=== PATIENT | female | born 1980 | race Caucasian/White ===

== ENCOUNTER → 2016-11-05 | Outpatient (CLI) | payer BC ==
[~2016-11-05] MED LIST: ALBU17AE23 IH; ALPR1T PO; AMOX500C2 PO; AMPH10CA PO; AZIT-21 PO; CLIN-81 PO; CLON1TAB36 PO; DEXT10TA PO; HYDR-1231 PO; HYDR-3583 PO; HYDR1CAP2 PO; HYDR1TAB PO; HYOS0.1216 PO; IBUP-30 PO; LIRA0.6P SQ; LRT10T; MECL25TA56 PO; METAPROLOL; METF500T8 PO; METO25TA2 PO; MTF500T PO; NAPR550T PO; NORE1TAB8 PO; ONDA-43 PO; ONDAN4ODT PO; PRCD5U; PRD10T PO; PRM25T PO; QTP25T PO; SCOP1PAT TD; SITA1TAB2 PO; SPIR50TA27 PO; SULF1TAB23 PO; SULF1TAB38 PO; TIZA2CAP PO; TIZA4TAB55 PO; TRAM50TA2 PO; TRM50T PO; YAZ; YAZ PO; ZLP10T PO
--- NOTE | 2016-11-05 11:59 | Diagnostic Imaging Report ---
PROCEDURE: MR angiography of the brain without the use of contrast. TECHNIQUE: 3D [id number]-[id number] non contrast enhanced MR angiography of the head was performed. A source data was reformatted into rotating MIP projections. INDICATION: Migraine FINDINGS: There is suggestion of a saccular aneurysm measuring 3 x 2 mm arising from the superior aspect of the supraglenoid segment of the left ICA. This arises distal to the left ophthalmic artery origin and at about 1 CM proximal to the ICA bifurcation into the left MCA and left AGUSTINA. Both MCA and AGUSTINA arteries appear normal in caliber with no high-grade stenosis, occlusion or other aneurysm seen. The vertebral arteries and the basilar arteries are also patent. The vertebral arteries demonstrate slight dominance of the right side. The electrician yard are from both patent bilaterally. 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 Confirmation with CTA or a conventional angiogram is suggested. Report was faxed to office of Barrie Ribeiro by cynthia at 11:59 am. Dictated by: Dictated on workstation # [id number]
== END ==
LOC: RAD 10:20
PROVIDERS: ATTEND Nurse Practitioner Community Health
DX: G43.009 Migraine without aura, not intractable, without status migrainosus (principal); Z82.49 Family history of ischemic heart disease and other diseases of the circulatory system
CPT/HCPCS: 70544

== ENCOUNTER → 2017-10-12 | Outpatient (CLI) | payer BC | LOC: LAB 16:45 | PROVIDERS: ATTEND Obstetrics & Gynecology | DX: E28.2 Polycystic ovarian syndrome (principal) | CPT/HCPCS: 36415; 82670 ==

== ENCOUNTER 2018-06-27 05:53 | Emergency (ER) | payer BC ==
[~2018-06-27] VITALS: Ht 175.3 cm; Wt 122.5 kg
[2018-06-27] MEDS ORDERED: LORA-404 PO (06:28)
[2018-06-27] MEDS ORDERED: AMLO2.5T2 PO (06:28)
[2018-06-27] MEDS ORDERED: GLIP5TAB13 PO (06:28)
[2018-06-27] MEDS ORDERED: DEXT5TAB19 PO (06:28)
[2018-06-27 06:43] LABS: BASOPHILS % (AUTO) 0 % (0-10); EOSINOPHILS # (AUTO) 0.1 10^3/uL (0.0-0.3); EOSINOPHILS % (AUTO) 1 % (0-10); HEMATOCRIT 42 % (35-52); HEMOGLOBIN 14.1 G/DL (11.5-16.0); LYMPHOCYTES # (AUTO) 1.9 X 10^3 (1.0-4.0); LYMPHOCYTES % (AUTO) 15 % (12-44); MEAN CORPUSCULAR HEMOGLOBIN 31 PG (25-34); MEAN CORPUSCULAR HGB CONC 34 G/DL (32-36); MEAN CORPUSCULAR VOLUME 92 FL (80-99); MEAN PLATELET VOLUME 9.8 FL (7.4-10.4); MONOCYTES # (AUTO) 0.9 X 10^3 (0.0-1.0); MONOCYTES % (AUTO) 7 % (0-12); NEUTROPHILS # (AUTO) 9.6 X 10^3 (1.8-7.8); NEUTROPHILS % (AUTO) 77 % (42-75); PLATELET COUNT 295 10^3/uL (130-400); RED BLOOD COUNT 4.55 10^6/uL (4.35-5.85); RED CELL DISTRIBUTION WIDTH 14.2 % (10.0-14.5); WHITE BLOOD COUNT 12.5 10^3/uL (4.3-11.0)
[2018-06-27 06:47] LABS: BILIRUBIN,URINE NEGATIVE (NEGATIVE); COLOR,URINE YELLOW; GLUCOSE, URINE (UA) 3+ (NEGATIVE); KETONES,URINE NEGATIVE (NEGATIVE); LEUKOCYTE ESTERASE ,URINE 3+ (NEGATIVE); NITRITE,URINE NEGATIVE (NEGATIVE); PH,URINE 5 (5-9); PROTEIN,URINE 2+ (NEGATIVE); UROBILINOGEN,URINE NORMAL (NORMAL)
[2018-06-27 07:06] LABS: CLARITY,URINE VERY CLOUDY
[2018-06-27 07:07] LABS: BACTERIA,URINE TRACE /HPF
--- NOTE | 2018-06-27 07:07 | ED General ---
General Chief Complaint: -Female Stated Complaint: BLADDER PAIN;MIGRAINE Nursing Triage Note: HEADACHE, BURNING WITH URINATION X1 WEEK. Nursing Sepsis Screen: No Definite Risk Source of Information: Patient Exam Limitations: No Limitations History of Present Illness Date Seen by Provider: Jun 27, 2018 Time Seen by Provider: 07:04 Initial Comments The patient is a 37-year-old white female who presents this morning with complaints of extreme dysuria for about a week. She also states that she has had a headache for a week which turned into a migraine today. She states she is not concerned about the headache issue. She also states that she has increased her fluid intake. This has not improved her situation. She states that this morning the urine was rather dark in color. There is no past history of kidney stones. Timing/Duration: 1 Week Associated Systoms: Headaches Allergies and Home Medications Allergies Coded Allergies: latex (Unverified Allergy, Severe, HIVES, 02/02/15) bupropion (Unverified Allergy, Unknown, 05/23/14) venlafaxine (Unverified Allergy, Unknown, 05/23/14) Home Medications Amlodipine Besylate 2.5 Mg Tablet, Unknown Dose PO DAILY, (Reported) Hydrocodone Bit/Acetaminophen 1 Tab Tablet, 1 TAB PO Q6H PRN for PAIN, (Reported ) Lorazepam 0.5 Mg Tablet, Unknown Dose PO TID PRN for ANXIETY, (Reported) Patient Home Medication List Home Medication List Reviewed: Yes Review of Systems Review of Systems Constitutional: see HPI EENTM: no symptoms reported Respiratory: no symptoms reported Genitourinary: see HPI, dysuria, frequency, pain Musculoskeletal: no symptoms reported Skin: no symptoms reported Psychiatric/Neurological: No Symptoms Reported Hematologic/Lymphatic: No Symptoms Reported Immunological/Allergic: no symptoms reported Past Xoqbbca-Gzmvum-Wabhey Hx Patient Social History Alcohol Use: Denies Use Recreational Drug Use: No Smoking Status: Current Everyday Smoker Type Used: Cigarettes 2nd Hand Smoke Exposure: Yes Recent Foreign Travel: No Contact w/Someone Who Travel: No Recent Infectious Disease Expo: No Recent Hopitalizations: No Immunizations Up To Date Tetanus Booster (TDap): Unknown PED Vaccines UTD: Yes Date of Influenza Vaccine: Apr 12, 2013 Seasonal Allergies Seasonal Allergies: No Past Medical History Surgeries: Yes (L KNEE MENISCUS REPAIR.) Orthopedic Respiratory: Yes Sleep Apnea Cardiac: Yes High Cholesterol, Hypertension Neurological: Yes Headaches /Migraines : No Reproductive Disorders: Yes (PCOS, INFERTILITY) Female Reproductive Disorders: Menstrual Problems, Ovarian Cyst, Polycystic Ovarian Dis Sexually Transmitted Disease: No HIV/AIDS: No Genitourinary: Yes UTI-Chronic Gastrointestinal: No Musculoskeletal: Yes Chronic Back Pain, Spasms Endocrine: Yes Diabetes, Non-Insulin dep HEENT: No Loss of Vision: Bilateral Hearing Impairment: Denies Cancer: No Psychosocial: Yes Anxiety, Depression Integumentary: Yes (CELLULITIS, ABSCESSES) Blood Disorders: No Adverse Reaction/Blood Tranf: No Family Medical History Deep venous thrombosis Diabetes mellitus 19 MOTHER FH: brain aneurysm FH: depression 19 MOTHER FH: headache FH: sleep apnea Hypertension 19 FATHER No Pertinent Family Hx Physical Exam Vital Signs Vital Signs - First Documented 06/27/18 06:18 Temp 98.9 Pulse 99 Resp 16 B/P (MAP) 140/75 (96) Pulse Ox 96 O2 Delivery Room Air Capillary Refill : Less Than 3 Seconds Height, Weight, BMI Height: 5'9" Weight: 270lbs. 0.0oz. 122.061173zz; 42.53 BMI Method:Stated General Appearance: Mild Distress Eyes: Bilateral Eye Normal Inspection HEENT: Normal ENT Inspection Neck: Normal Inspection Respiratory: Chest Non Tender, Lungs Clear, Normal Breath Sounds, No Accessory Muscle Use, No Respiratory Distress Cardiovascular: Regular Rate, Rhythm, No Edema, No Gallop, No JVD, No Murmur, Normal Peripheral Pulses Gastrointestinal: Normal Bowel Sounds, No Organomegaly, No Pulsatile Mass, Non Tender, Soft Back: Normal Inspection Extremity: Normal Capillary Refill Skin: Normal Color, Warm/Dry Lymphatic: No Adenopathy Progress/Results/Core Measures Suspected Sepsis Recent Fever Within 48 Hours: No Infection Criteria Present: None New/Unexplained Altered Menta: No Sepsis Screen: No Definite Risk SIRS Temperature:98.9 Pulse: 99 Respiratory Rate: 16 Laboratory Tests 06/27/18 06:35: White Blood Count 12.5H Blood Pressure 140 /75 Mean: 96 Laboratory Tests 06/27/18 06:35: Platelet Count 295 Results/Orders Lab Results Laboratory Tests Test 06/27/18 06:35 06/27/18 06:40 Range/Units White Blood Count 12.5 H 4.3-11.0 10^3/uL Red Blood Count 4.55 4.35-5.85 10^6/uL Hemoglobin 14.1 11.5-16.0 G/DL Hematocrit 42 35-52 % Mean Corpuscular Volume 92 80-99 FL Mean Corpuscular Hemoglobin 31 25-34 PG Mean Corpuscular Hemoglobin Concent 34 32-36 G/DL Red Cell Distribution Width 14.2 10.0-14.5 % Platelet Count 295 130-400 10^3/uL Mean Platelet Volume 9.8 7.4-10.4 FL Neutrophils (%) (Auto) 77 H 42-75 % Lymphocytes (%) (Auto) 15 12-44 % Monocytes (%) (Auto) 7 0-12 % Eosinophils (%) (Auto) 1 0-10 % Basophils (%) (Auto) 0 0-10 % Neutrophils # (Auto) 9.6 H 1.8-7.8 X 10^3 Lymphocytes # (Auto) 1.9 1.0-4.0 X 10^3 Monocytes # (Auto) 0.9 0.0-1.0 X 10^3 Eosinophils # (Auto) 0.1 0.0-0.3 10^3/uL Basophils # (Auto) 0.0 0.0-0.1 10^3/uL Urine Color YELLOW Urine Clarity VERY CLOUDY H Urine pH 5 5-9 Urine Specific Cameron 1.025 H 1.016-1.022 Urine Protein 2+ H NEGATIVE Urine Glucose (UA) 3+ H NEGATIVE Urine Ketones NEGATIVE NEGATIVE Urine Nitrite NEGATIVE NEGATIVE Urine Bilirubin NEGATIVE NEGATIVE Urine Urobilinogen NORMAL NORMAL MG/DL Urine Leukocyte Esterase 3+ H NEGATIVE Urine RBC (Auto) 2+ H NEGATIVE Urine RBC 5-10 H /HPF Urine WBC 10-25 H /HPF Urine Squamous Epithelial Cells 5-10 /HPF Urine Crystals NONE /LPF Urine Bacteria TRACE /HPF Urine Casts NONE /LPF Urine Mucus NEGATIVE /LPF Urine Culture Indicated YES My Orders Orders - EDNA SANDS MD Cbc With Automated Diff (06/27/18 06:20) Ua Culture If Indicated (06/27/18 06:20) Urine Culture (06/27/18 06:40) Ceftriaxone For Im Use (Rocephin For Im (06/27/18 07:45) Lidocaine 1% Inj 20 Ml (Xylocaine 1% Inj (06/27/18 07:36) Ceftriaxone For Iv Use (Rocephin For I (06/27/18 07:36) Ibuprofen Tablet (Motrin Tablet) (06/27/18 08:00) Medications Given in ED Current Medications Medications Dose Ordered Sig/Glory Route Start Time Stop Time Status Last Admin Dose Admin Lidocaine HCl 20 ml STK-MED ONCE .ROUTE 06/27/18 07:36 06/27/18 07:39 DC 06/27/18 07:44 20 ML Vital Signs/I&O 06/27/18 06:18 Temp 98.9 Pulse 99 Resp 16 B/P (MAP) 140/75 (96) Pulse Ox 96 O2 Delivery Room Air Capillary Refill : Less Than 3 Seconds Blood Pressure Mean: 96 Departure Communication (Admissions) UA shows pyuria and is consistent with urinary tract infection Impression Primary Impression: Urinary tract infection Disposition: HOME, SELF-CARE Condition: Stable/Unchanged Departure-Patient Inst. Decision time for Depature: 08:08 Referrals: SATURNINO FRANCO DO (PCP) Primary Care Physician ARABELLA DIXON (Family) Primary Care Physician Add. Discharge Instructions: All discharge instructions reviewed with patient and/or family. Voiced understanding. Plenty of liquids. Begin Omnicef by mouth at 0800 tomorrow. Scripts Cefdinir (Cefdinir) 300 Mg Capsule 300 MG PO twice a day, #12 CAP Prov: EDNA SANDS MD 06/27/18 EDNA SANDS MD Jun 27, 2018 07:07
[2018-06-27] MEDS ORDERED: NS IV 1000 ML 1,000 ML IV SCH (07:15)
[2018-06-27] MEDS ORDERED: ONDANSETRON 4 MG/2 ML (SDV) Z0FRAN IVP ONE (07:15)
[2018-06-27] MEDS ORDERED: KETOROLAC 30 MG/ML VIAL IVP ONE (07:15)
--- OUTSIDE RECORDS SUMMARY | 2018-06-27 07:19 | XMS REPORT ---
Author Author ARABELLA DIXON Organization [facility] Address [address] [place] [address] Care Team Providers Care Print Line Feeder Name Role Phone ARABELLA DIXON Unavailable PROBLEMS Type Condition ICD9-CM Code EXZ39-VL Code Onset Dates Condition Status SNOMED Code Problem Lumbago with sciatica, right side M54.41 Active [id number] Problem Diabetes type 2, controlled E11.9 Active 59604786 Problem Other chronic pain G89.29 Active 53999731 Problem High risk medications (not anticoagulants) long-term use Z79.899 Active 226629336 Problem Obstructive sleep apnea syndrome G47.33 Active 15409393 Problem Lumbago with sciatica, left side M54.42 Active 458184427 Problem Bilateral low back pain with sciatica, sciatica laterality unspecified M54.40 Active 91150714 Problem Essential hypertension I10 Active 61667383 Problem Migraine without aura and without status migrainosus, not intractable G43.009 Active 974173440 Problem Morbid obesity due to excess calories E66.01 Active 756884487 Problem Mood disorder F39 Active 87267903 Problem Anxiety F41.9 Active 69384570 ALLERGIES No Information ENCOUNTERS Encounter Location Date Diagnosis [facility] [id number] [place] [address] 70819- 6306 Jun, Acute pain of left shoulder M25.512 [facility] [id number] [place] [address] 71326 -8184 Jun, Stye, right H00.013 [facility] [id number] [place] [address] 95544- 2493 May, [facility] [id number] [place] [address] 99706- 6861 May, Bilateral low back pain with sciatica, sciatica laterality unspecified M54.40 ; Morbid obesity due to excess calories E66.01 and Diabetes type 2, controlled E11.9 [facility] [id number] [place] [address] 92968- 4103 Apr, Morbid obesity due to excess calories E66.01 [facility] [id number] [place] [address] 07493- 0087 18 Apr, 2018 Diabetes type 2, controlled E11.9 and Bilateral low back pain with sciatica, sciatica laterality unspecified M54.40 [facility] [id number] [place] [address] 85680- 7043 26 Mar, 2018 Acute pain of left shoulder M25.512 and BMI 40.0-44.9, adult Z68.41 [facility] [id number] [place] [address] 09333- 5116 Mar, Morbid obesity due to excess calories E66.01 [facility] [id number] [place] [address] 84277- 3375 Mar, Diabetes type 2, controlled E11.9 and Bilateral low back pain with sciatica, sciatica laterality unspecified M54.40 [facility] [id number] [place] [address] 72008- 4864 Feb, Anxiety F41.9 [facility] [id number] [place] [address] 24813- 5460 Feb, Morbid obesity due to excess calories E66.01 [facility] [id number] [place] [address] 41235- 9620 Feb, Bilateral low back pain with sciatica, sciatica laterality unspecified M54.40 and Diabetes type 2, controlled E11.9 [facility] [id number] [place] [address] 71339- 6290 Jan, Morbid obesity due to excess calories E66.01 [facility] [id number] [place] [address] 29933- 5164 Jan, [facility] [id number] [place] [address] 30361- 4406 Jan, Diabetes type 2, controlled E11.9 [facility] [id number] [place] [address] 38415- 7398 Jan, Diabetes type 2, controlled E11.9 [facility] [id number] [place] [address] 55928- 0144 Jan, Bilateral low back pain with sciatica, sciatica laterality unspecified M54.40 and Dysfunction of both eustachian tubes H69.83 [facility] [id number] [place] [address] 98012- 2125 Jan, Morbid obesity due to excess calories E66.01 [facility] [id number] [place] [address] 36787- 9051 Dec, Diabetes type 2, controlled E11.9 [facility] [id number] [place] [address] 04219- 3292 Dec, Morbid obesity due to excess calories E66.01 ; Essential hypertension I10 ; Tobacco abuse Z72.0 and Tobacco abuse counseling Z71.6 [facility] [id number] [place] [address] 89242- 1715 November, Diabetes type 2, controlled E11.9 [facility] [id number] [place] [address] 86092- 7434 Oct, Diabetes type 2, controlled E11.9 [facility] [id number] [place] [address] 38096- 3277 Sep, Diabetes type 2, controlled E11.9 [facility] [id number] [place] [address] 49804- 7344 Sep, [facility] [id number] [place] [address] 73285- 5315 Aug, Diabetes type 2, controlled E11.9 and Morbid obesity due to excess calories E66.01 [facility] [id number] [place] [address] 83543- 8939 Jul, Anxiety F41.9 [facility] [id number] [address]- 7672 Jul, [facility] [id number] [place] [address] 59974- 5925 Jul, Anxiety F41.9 ; Mood disorder F39 ; Morbid obesity due to excess calories E66.01 and Diabetes type 2, controlled E11.9 [facility] [id number] [place] [address] 07643- 7976 Jun, Anxiety F41.9 [facility] [id number] [place] [address] 84584- 7017 Jun, Anxiety F41.9 ; Morbid obesity due to excess calories E66.01 and Diabetes type 2, controlled E11.9 [facility] [id number] [place] [address] 72522- 8047 May, Migraine without aura and without status migrainosus, not intractable G43.009 ; Diabetes type 2, controlled E11.9 and Morbid obesity due to excess calories E66.01 [facility] [id number] [place] [address] 72642- 0080 Apr, Migraine without aura and without status migrainosus, not intractable G43.009 ; Diabetes type 2, controlled E11.9 and Morbid obesity due to excess calories E66.01 [facility] [id number] [place] [address] 91545- 0892 Apr, Diabetes type 2, controlled E11.9 and Morbid obesity due to excess calories E66.01 [facility] [id number] [place] [address] 67485- 5155 Mar, Diabetes type 2, controlled E11.9 and Morbid obesity due to excess calories E66.01 [facility] [id number] [place] [address] 43900- 8675 Mar, Diabetes type 2, controlled E11.9 and Mood disorder F39 [facility] [id number] [place] [address] 77796- 7884 Feb, Morbid obesity due to excess calories E66.01 and Diabetes type 2, controlled E11.9 [facility] [id number] [place] [address] 36449- 0030 Jan, Diabetes type 2, controlled E11.9 and Morbid obesity due to excess calories E66.01 [facility] [id number] [place] [address] 34837- 6403 Dec, Diabetes type 2, controlled E11.9 and Morbid obesity due to excess calories E66.01 [facility] [id number] [place] [address] 98890- 4234 Dec, Morbid obesity due to excess calories E66.01 [facility] [id number] [place] [address] 62707- 2706 November, Diabetes type 2, controlled E11.9 and Morbid obesity due to excess calories E66.01 [facility] [id number] [place] [address] 47222- 8847 November, Anxiety F41.9 and Injury of right foot, initial encounter S99.921A [facility] [id number] [place] [address] 18141- 5674 November, Diabetes type 2, controlled E11.9 and Morbid obesity due to excess calories E66.01 [facility] [id number] [place] [address] 41947- 0396 November, [facility] [id number] [place] [address] 97848- 2569 Oct, Family history of brain aneurysm Z82.49 and Migraine without aura and without status migrainosus, not intractable G43.009 [facility] [id number] [place] [address] 28846- 2891 Oct, Diabetes type 2, controlled E11.9 [facility] [id number] [place] [address] 91556- 8407 Oct, Morbid obesity due to excess calories E66.01 ; Family history of brain aneurysm Z82.49 and Migraine without aura and without status migrainosus, not intractable G43.009 [facility] [id number] [place] [address] 99943- 5891 Oct, Diabetes type 2, controlled E11.9 and Morbid obesity due to excess calories E66.01 [facility] [id number] [place] [address] 47978- 3807 Sep, [facility] [id number] [place] [address] 81695- 5057 Sep, Diabetes type 2, controlled E11.9 [facility] [id number] [place] [address] 37984- 2458 Sep, Morbid obesity due to excess calories E66.01 [facility] [id number] [place] [address] 38568- 3146 Aug, Exposure to hepatitis C Z20.5 [facility] [id number] [place] [address] 11706- 0165 Aug, Diabetes type 2, controlled E11.9 [facility] [id number] [place] [address] 08986- 5545 Jul, Exposure to hepatitis C Z20.5 [facility] [id number] [place] [address] 98838- 5402 Jul, Exposure to hepatitis C Z20.5 [facility] [id number] [place] [address] 38208- 7919 Jul, [facility] [id number] [place] [address] 84844- 7946 Jul, Diabetes type 2, controlled E11.9 [facility] [id number] [place] [address] 32622- 7506 Jun, [facility] [id number] [place] [address] 95648- 5124 Jun, Diabetes type 2, controlled E11.9 ; Pain of left foot M79.672 and Pain in right foot M79.671 [facility] [id number] [place] [address] 56740- 7743 May, [facility] [id number] [place] [address] 94970- 8703 Apr, [facility] [id number] [place] [address] 85422- 0792 Apr, [facility] [id number] [place] [address] 29848- 9199 Mar, [facility] [id number] [place] [address] 90489- 3199 Feb, [facility] [id number] [place] [address] 26598- 5897 Feb, [facility] [id number] [place] [address] 46956- 7113 Jan, [facility] [id number] [place] [address] 53004- 2274 Dec, Diabetes type 2, controlled E11.9 ; 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 and Abscess, abdomen K65.1 [facility] [id number] [place] [address] 84034- 1604 Dec, Shoulder pain, right 719.41 [facility] [id number] [place] [address] 98646- 3707 November, [facility] [id number] [place] [address] 29367- 8919 November, [facility] [id number] [place] [address] 93770- 0165 Oct, [facility] [id number] [address]- 8203 Sep, [facility] [id number] [place] [address] 36212- 8598 Sep, [facility] [id number] [address] -2633 Aug, [facility] [id number] [place] [address] 26391- 9091 Aug, [facility] [id number] [place] [address] 07131- 3446 Aug, Cellulitis, unspecified L03.90 ; Cutaneous abscess, unspecified L02.91 ; Diabetes type 2, controlled E11.9 ; Migraine G43.909 and Bilateral low back pain with sciatica, sciatica laterality unspecified M54.40 [facility] [id number] [place] [address] 40471 -0658 13 Aug, 2015 Abscess and cellulitis L03.90 [facility] [id number] [place] [address] 75038- 2077 Aug, [facility] [id number] [place] [address] 35743- 3035 Aug, [facility] [id number] [place] [address] 44771- 8489 Jul, [facility] [id number] [place] [address] 44223- 1838 Jul, Diabetes type 2, controlled E11.9 [facility] [id number] [place] [address] 88005- 1441 Jul, Diabetes type 2, controlled E11.9 [facility] [id number] [place] [address] 29983- 5783 Jun, Diabetes type 2, controlled E11.9 ; Bilateral low back pain with sciatica, sciatica laterality unspecified M54.40 and Morbid obesity, unspecified obesity type E66.01 [facility] [id number] [place] [address] 20073- 2221 Jun, [facility] [id number] [place] [address] [place] [address]- 3226 May, [facility] [address] [facility] [id number] [address]- 0240 Apr, [facility] [id number] [address]- 6298 Apr, [facility] [address] [address]- 6007 Apr, [facility] [id number] [address]- 0044 Mar, [facility] [id number] [address]- 5364 Mar, [facility] [id number] 8305 Mar, [facility] [address] [address]- 1147 Feb, [facility] [address] [address]- 2021 Feb, [facility] [address] [address]- 9302 Feb, [facility] [id number], [place] [address]- 1874 Feb, [facility] [id number] [address]- 8755 Feb, Diabetes mellitus without mention of complication, type II or unspecified type, not stated as uncontrolled 250.00 [facility] [id number] [address]- 7122 Feb, [facility] [address] [facility] [id number] [address]- 2440 Feb, [facility] [id number] [address]- 3851 Jan, Diabetes mellitus without mention of complication, type II or unspecified type, not stated as uncontrolled 250.00 and Cellulitis and abscess 682.9 [facility] [id number] [address]- 9842 Jan, [facility] [address], [place] [address]- 8999 Jan, [facility] [id number] [address]- 3562 Jan, [facility] [id number] [place] [address] 93069- 0290 Dec, [facility] [id number] [place] [address] 04793- 4635 Dec, [facility] [id number] [place] [address] 86920- 9448 Dec, [facility] [id number] [place] [address] 67579- 4559 November, [facility] [address] [address]- 7888 Oct, Shoulder pain, right 719.41 [facility] [id number] [address]- 0357 Oct, [facility] [address] [address]- 9309 Oct, [facility] [address] [address]- 1190 Sep, [facility] [address], [place] [address]- 2948 Sep, [facility] [id number] [address]- 9184 Sep, [facility] [id number], [place] [address]- 3015 Sep, [facility] [address] [address]- 1071 Sep, [facility] [place] [facility] [address] [id number] [place] [address]- 2380 24 Sep, 2014 [facility] [place] [facility] [address] [id number] [place] [address]- 5546 14 Sep, 2014 [facility] [place] [facility] [address] [id number] [place] [address]- 4494 14 Sep, 2014 [facility] [place] [facility] [address] [id number] [place] [address]- 8754 24 Aug, 2014 [facility] [place] [facility] [address] [id number] [place] [address]- 8585 24 Aug, 2014 [facility] [place] [facility] [address] [id number] [place] [address]- 1041 Aug, [facility] [place] [facility] [address] [id number] [place] [address]- 2393 Aug, [facility] [place] [facility] [address] [id number] [place] [address]- 1682 Jul, [facility] [place] [facility] [address] [id number] [place] [address]- 2312 Jul, [facility] [place] [facility] [address] [id number] [place] [address]- 7500 Jul, [facility] [place] [facility] [address] [id number] [place] [address]- 3180 Jul, [facility] [place] [facility] [address] [id number] [place] [address]- 7855 Jul, [facility] [place] [facility] [address] [id number] [place] [address]- 4155 Jul, [facility] [place] [facility] [address] [id number] [place] 6739 Jun, [facility] [place] [facility] [address] [id number] [place] [address]- 4657 Jun, [facility] [place] [facility] [address] [id number] [place] [address]- 5165 19 Jun, 2014 [facility] [place] [facility] [address] [id number] [place] [address]- 7637 19 Jun, 2014 [facility] [place] [facility] [address] [id number] [place] [address]- 0684 18 Jun, 2014 [facility] [place] [facility] [address] [id number] [place] [address]- 5002 18 Jun, 2014 [facility] [place] [facility] [address] [id number] [place] [address]- 2887 15 Jun, 2014 [facility] [place] [facility] [address] [id number] [place] [address]- 8416 15 Jun, 2014 [facility] [place] [facility] [address] [id number] [place] [address]- 8219 May, [facility] [place] [facility] [address] [id number] [place] [address]- 3202 May, [facility] [place] [facility] [address] [id number] [place] [address]- 1244 May, [facility] [place] [facility] [address] [id number] [place] [address]- 9247 May, [facility] [place] [facility] [address] [facility] [id number] [place] [address]- 2650 May, [facility] [place] [facility] [address] [id number] [place] [address]- 0646 May, [facility] [place] [facility] [address] [id number] [place] [address]- 7082 Apr, [facility] [place] [facility] [address] [id number] [place] [address]- 4075 Apr, [facility] [place] [facility] [address] [id number] [place] [address]- 4249 Apr, [facility] [place] [facility] [address] [id number] [place] [address]- 1214 Apr, [facility] [place] [facility] [address] [id number] [place] [address]- 9520 Apr, [facility] [place] [facility] [address] [id number] [place] [address]- 5662 Apr, [facility] [place] [facility] [address] [id number] [place] [address]- 1918 Apr, [facility] [place] [facility] [address] [id number] [place] [address]- 5174 Mar, [facility] [place] [facility] [address] [id number] [place] [address]- 2554 Mar, [facility] [place] [facility] [address] [id number] [place] [address]- 1640 Mar, [facility] [place] [facility] [address] [id number] [place] [address]- 5962 Mar, [facility] [place] [facility] [address] [id number] [place] [address]- 1415 Feb, [facility] [place] [facility] [address] [id number] [place] [address]- 6825 Feb, [facility] [place] [facility] [address] [id number] [place] [address]- 2379 Feb, [facility] [place] [facility] [address] [id number] [place] [address]- 6621 Feb, [facility] [place] [facility] [address] [id number] [place] [address]- 1174 Feb, [facility] [place] [facility] [address] [id number] [place] [address]- 5272 Feb, [facility] [place] [facility] [address] [id number] [place] [address]- 3349 Jan, [facility] [place] [facility] [address] [id number] [place] [address] Jan, [facility] [place] [facility] [address] [id number] [place] [address] Jan, [facility] [place] [facility] [address] [id number] [place] [address] Jan, [facility] [place] [facility] [address] [id number] [place] [address] Jan, [facility] [place] [facility] [address] [id number] [place] [address] Jan, [facility] [place] [facility] [address] [id number] [place] [address] Jan, [facility] [place] [facility] [address] [id number] [place] [address] Jan, [facility] [place] [facility] [address] [id number] [place] [address] Jan, [facility] [place] [facility] [address] [id number] [place] [address] Jan, [facility] [place] [facility] [address] [id number] [place] [address] Dec, [facility] [place] [facility] [address] [id number] [place] [address] Dec, [facility] [place] [facility] [address] [id number] [place] [address] Dec, [facility] [place] [facility] [address] [id number] [place] [address] Dec, [facility] [place] [facility] [address] [id number] [place] [address] November, [facility] [place] [facility] [address] [id number] [place] [address]- [address] November, [facility] [place] [facility] [address] [id number] [place] [address] November, [facility] [place] [facility] [address] [id number] [place] [address] November, [facility] [place] [facility] [address] [id number] [place] [address] 30 Oct, 2013 [facility] [place] [facility] [address] [id number] [place] [address]- [address] 30 Oct, 2013 [facility] [place] [facility] [address] [id number] [place] [address] Oct, [facility] [place] [facility] [address] [id number] [place] [address] Oct, [facility] [place] [facility] [address] [id number] [place] [address] Oct, [facility] [place] [facility] [address] [id number] [place] [address] Oct, [facility] [place] [facility] [address] [id number] [place] [address] Oct, [facility] [place] [facility] [address] [id number] [place] [address] Oct, [facility] [place] [facility] [address] [id number] [place] [address] Sep, [facility] [place] [facility] [address] [id number] [place] [address] Sep, [facility] [place] [facility] [address] [id number] [place] [address] Sep, [facility] [place] [facility] [address] [id number] [place] [address] Sep, [facility] [place] [facility] [address] [id number] [place] [address] Sep, [facility] [place] [facility] [address] [id number] [place] [address] Sep, [facility] [place] [facility] [address] [id number] [place] [address] Aug, [facility] [place] [facility] [address] [id number] [place] [id number] Aug, [facility] [place] [facility] [address] [id number] [place] [address] Jul, [facility] [place] [facility] [address] [id number] [place] [address] Jul, [facility] [place] [facility] [address] [id number] [place] [address] Jul, [facility] [place] [facility] [address] [id number] [place] [address] Jul, [facility] [place] [facility] [address] [id number] [place] [address] Jul, [facility] [place] [facility] [address] [id number] [place] [address] Jul, [facility] [place] [facility] [address] [id number] [place] [address] Jul, [facility] [place] [facility] [address] [id number], [place] [address] Jul, [facility] [place] [facility] [address] [id number] [place] [address] Jun, [facility] [place] [facility] [address] [id number], [place] [address] Jun, [facility] [place] [facility] [address] [id number], [place] [address] May, [facility] [place] [facility] [address] [id number], [place] [address] May, [facility] [place] [facility] [address] [id number] [place] [address] Apr, [facility] [place] [facility] [address] [id number], [place] [address] Apr, [facility] [place] [facility] [address] [id number] [place] [address] Apr, [facility] [place] [facility] [address] [id number] [place] [address] 29 Apr, 2012 [facility] [place] [facility] [address] [id number] [place] [address] 29 Apr, 2012 [facility] [place] [facility] [address] [id number] [place] [address] 29 Apr, 2012 [facility] [place] [facility] [address] [id number] [place] [address] Apr, 2012 [facility] [place] [facility] [address] [id number] [place] [address] 28 Apr, 2013 [facility] [place] [facility] [address] [id number] [place] [address] Apr, 2012 [facility] [place] [facility] [address] [id number] [place] [address] Apr, 2012 [facility] [place] [facility] [address] [id number] [place] [address]- [address] Apr, 2012 [facility] [place] [facility] [address] [id number] [place] [address] Apr, [facility] [place] [facility] [address] [id number] [place] [address] Apr, [facility] [place] [facility] [address] [id number] [place] [address] 45[address] 18 Apr, 2013 [facility] [place] [facility] [address] [id number] [place] [address] 6[address] 02 Apr, 2013 [facility] [place] [facility] [address] [id number], [place] [address] 27 Mar, 2012 [facility] [place] [facility] [address] [id number] [place] [address] 27 Mar, 2012 [facility] [place] [facility] [address] [id number] [place] [address] 8890 26 Mar, 2012 [facility] [place] [facility] [address] [id number] [place] [address] 25 Mar2012 [facility] [place] [facility] [address] [id number] [place] [address] 2096 16 Mar, 2013 [facility] [place] [facility] [address] [id number] [place] [address] 9160 Mar, [facility] [place] [facility] [address] [id number] [place] [address] Jan, [facility] [place] [facility] [address] [id number] [place] [address]46 Jan, [facility] [place] [facility] [address] [id number] [place] [address] Jan, [facility] [place] [facility] [address] [id number] [place] [address] 0[address] Dec, [facility] [place] [facility] [address] [id number] [place] [address] 9[address] Oct, [facility] [place] [facility] [address] [id number] [place] [address] May, [facility] [place] [facility] [address] [id number] [place] [address]287 May, [facility] [place] [facility] [address] [id number] [place] [address] 5227 Jun, [facility] [place] [facility] [address] [id number] [place] [address]259 May, [facility] [place] [facility] [address] [id number] [place] [address] 5533 May, [facility] [place] [facility] [address] [id number] [place] [address] 03 May, 2011 [facility] [place] [facility] [address] [id number] [place] [address] 5224 14 Apr, 2011 [facility] [place] [facility] [address] [id number] [place] [address] 5887 13 Apr, 2011 [facility] [place] [facility] [address] [id number] [place] [address]- 4[address] 17 Feb, 2011 [facility] [place] [facility] [address] [id number] [place] [address] 9553 16 Feb, 2011 [facility] [place] [facility] [address] [id number] [place] [address] 4498 10 Dec, 2010 [facility] [place] [facility] [address] [id number] [place] [address] 8996 12 Oct, 2010 [facility] [place] [facility] [address] [id number] [place] [address]- 7516 19 Sep, 2010 [facility] [place] [facility] [address] [id number] [place] [address] 68[address] Sep, [facility] [place] [facility] [address] [id number] [place] [address]- 0074 20 Jul, 2010 [facility] [place] [facility] [address] [id number] [place] [address]- 2044 Jul, [facility] [place] [facility] [address] [id number] [place] [address] 1249 28 Jun, 2010 [facility] [place] [facility] [address] [id number] [place] [address]- 8035 23 Jun, 2010 [facility] [place] [facility] [address] [id number] [place] [address]- 8944 14 Jun, 2010 [facility] [place] [facility] [address] [id number] [place] [address]- 2987 14 Jun, 2010 [facility] [place] [facility] [address] [id number] [place] [address] 2542 08 Jun, 2010 [facility] [place] [facility] [address] [id number] [place] [address]- 6449 30 May, 2010 [facility] [place] [facility] [address] [id number] [place] [address] 9179 23 May, 2010 [facility] [place] [facility] [address] [id number] [place] [address]- 2546 17 May, 2010 [facility] [place] [facility] [id number] [address] 17 May, 2010 [facility] [id number], [place] [address] 17 May, 2010 [facility] [id number], [place] [address] 17 May, 2010 [facility] [id number], [place] [address] 23 Apr, 2010 [facility] [id number], [place] [address] 260[address] 14 Apr, 2010 [facility] [id number] [place] [address] 10 Mar, 2010 [facility] [id number], [place] [address] Feb, [facility] [id number] [place] [address]- [address] Sep, [facility] [id number], [place] [address] Sep, [facility] [id number], [place] [address] Aug, [facility] [id number], [place] [address] Jun, [facility] [id number], [place] [address] Jun, [facility] [id number], [place] [address] May, [facility] [id number], [place] [address]- [address] Dec, [facility] [id number], [place] [address] Sep, IMMUNIZATIONS No Known Immunizations SOCIAL HISTORY Never Assessed REASON FOR VISIT DI correction PLAN OF CARE VITAL SIGNS MEDICATIONS Unknown Medications RESULTS No Results PROCEDURES No Known procedures INSTRUCTIONS MEDICATIONS ADMINISTERED No Known Medications MEDICAL (GENERAL) HISTORY Type Description Date Medical History Type II diabetic Medical History hypertension Medical History MRSA Medical History PCOS Medical History 3 slipped disk in back. Surgical History knee surgery Hospitalization History surgeries Hospitalization History [facility] Pt[facility] unable to walk after waking up from a nap. 12/2015
--- OUTSIDE RECORDS SUMMARY | 2018-06-27 07:20 | XMS REPORT ---
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 Name Role Phone ARABELLA DIXON Unavailable PROBLEMS Type Condition ICD9-CM Code QEQ33-WF Code Onset Dates Condition Status SNOMED Code Problem Lumbago with sciatica, right side M54.41 Active [id number] Problem Diabetes type 2, controlled E11.9 Active 21384523 Problem Other chronic pain G89.29 Active 57320501 Problem High risk medications (not anticoagulants) long-term use Z79.899 Active 069839736 Problem Obstructive sleep apnea syndrome G47.33 Active 27113850 Problem Lumbago with sciatica, left side M54.42 Active 778324602 Problem Bilateral low back pain with sciatica, sciatica laterality unspecified M54.40 Active 78624572 Problem Essential hypertension I10 Active 12840322 Problem Migraine without aura and without status migrainosus, not intractable G43.009 Active 796409930 Problem Morbid obesity due to excess calories E66.01 Active 233746082 Problem Mood disorder F39 Active 20333830 Problem Anxiety F41.9 Active 21454976 ALLERGIES No Information ENCOUNTERS Encounter Location Date Diagnosis [facility] [id number] [address] May, [facility] [id number] [place] [address] May, Bilateral low back pain with sciatica, sciatica laterality unspecified M54.40 ; Morbid obesity due to excess calories E66.01 and Diabetes type 2, controlled E11.9 [facility] [id number] [place] [address] Apr, Morbid obesity due to excess calories E66.01 [facility] [id number] [place] [address] 18 Apr, 2018 Diabetes type 2, controlled E11.9 and Bilateral low back pain with sciatica, sciatica laterality unspecified M54.40 [facility] [id number] [place] [address] 11070- 0228 26 Mar, 2018 Acute pain of left shoulder M25.512 [facility] [id number] [place] [address] 58327- 8182 21 Mar, 2018 Morbid obesity due to excess calories E66.01 [facility] [address] [facility] [id number] [place] [address] 48110- 4796 19 Mar, 2018 Diabetes type 2, controlled E11.9 and Bilateral low back pain with sciatica, sciatica laterality unspecified M54.40 [facility] [id number] [place] [address] 51713- 3629 Feb, Anxiety F41.9 [facility] [id number] [place] [address] 53493- 3150 Feb, Morbid obesity due to excess calories E66.01 [facility] [address] [place] [address] 45568- 3938 Feb, Bilateral low back pain with sciatica, sciatica laterality unspecified M54.40 and Diabetes type 2, controlled E11.9 [facility] [address] [address] 6[address] Jan, Morbid obesity due to excess calories E66.01 [facility] [id number] [place] [address] 15434- 0143 Jan, [facility] [address] [facility] [id number] [place] [address] 60087- 2462 Jan, Diabetes type 2, controlled E11.9 [facility] [address] [place] [address] 62888- 9774 Jan, Diabetes type 2, controlled E11.9 [facility] [id number] [place] [address] 61264- 0669 Jan, Bilateral low back pain with sciatica, sciatica laterality unspecified M54.40 and Dysfunction of both eustachian tubes H69.83 [facility] [id number] [place] [address] 58650- 7424 Jan, Morbid obesity due to excess calories E66.01 [facility] [id number] [place] [address] 23034- 1605 Dec, Diabetes type 2, controlled E11.9 [facility] [address] [address]31- 0447 Dec, Morbid obesity due to excess calories E66.01 ; Essential hypertension I10 ; Tobacco abuse Z72.0 and Tobacco abuse counseling Z71.6 [facility] [address] 46054- 7469 November, Diabetes type 2, controlled E11.9 [facility] [address] 68834- 3970 Oct, Diabetes type 2, controlled E11.9 [facility] [id number] [place] [address] 14085- 6810 Sep, Diabetes type 2, controlled E11.9 [facility] [id number] [place] [address] 17833- 1808 Sep, [facility] [id number] [place] [address] 89754- 0828 Aug, Diabetes type 2, controlled E11.9 and Morbid obesity due to excess calories E66.01 [facility] [id number] [place] [address] 60181- 4883 Jul, Anxiety F41.9 [facility] [address] 00577- 9922 Jul, [facility] [address] 79248- 8456 Jul, Anxiety F41.9 ; Mood disorder F39 ; Morbid obesity due to excess calories E66.01 and Diabetes type 2, controlled E11.9 [facility] [address] [address] 45[address] Jun, Anxiety F41.9 [facility] [id number] [place] [address] 27567- 0313 Jun, Anxiety F41.9 ; Morbid obesity due to excess calories E66.01 and Diabetes type 2, controlled E11.9 [facility] [id number] [place] [address] 55125- 8162 May, Migraine without aura and without status migrainosus, not intractable G43.009 ; Diabetes type 2, controlled E11.9 and Morbid obesity due to excess calories E66.01 [facility] [id number] [place] [address] 94998- 0499 Apr, Migraine without aura and without status migrainosus, not intractable G43.009 ; Diabetes type 2, controlled E11.9 and Morbid obesity due to excess calories E66.01 [place] [address] [place] [address] 93961- 0796 Apr, Diabetes type 2, controlled E11.9 and Morbid obesity due to excess calories E66.01 [place] [address] [place] [address] 65629- 0688 Mar, Diabetes type 2, controlled E11.9 and Morbid obesity due to excess calories E66.01 [facility] [address] [address] 3503 Mar, Diabetes type 2, controlled E11.9 and Mood disorder F39 [facility] [address] [place] [address] 65419- 3066 Feb, Morbid obesity due to excess calories E66.01 and Diabetes type 2, controlled E11.9 [facility] [address] [address]- 2497 Jan, Diabetes type 2, controlled E11.9 and Morbid obesity due to excess calories E66.01 [facility] [address] [address]- 2050 Dec, Diabetes type 2, controlled E11.9 and Morbid obesity due to excess calories E66.01 [place] [address] [address]- 0996 Dec, Morbid obesity due to excess calories E66.01 [place] [address] [place] [address] 39135- 1621 November, Diabetes type 2, controlled E11.9 and Morbid obesity due to excess calories E66.01 [place] [facility] [address] [place] [address] 76069- 5695 November, Anxiety F41.9 and Injury of right foot, initial encounter S99.921A [place] [facility] [address] [address]- 0153 November, Diabetes type 2, controlled E11.9 and Morbid obesity due to excess calories E66.01 [place] [address] [place] [address] 50406- 0226 November, [facility] [address] [place] [address] 35099- 0825 Oct, Family history of brain aneurysm Z82.49 and Migraine without aura and without status migrainosus, not intractable G43.009 [facility] [address] [address]- 6484 Oct, Diabetes type 2, controlled E11.9 [facility] [address] [address]- 6574 Oct, Morbid obesity due to excess calories E66.01 ; Family history of brain aneurysm Z82.49 and Migraine without aura and without status migrainosus, not intractable G43.009 [facility] [address] [address]- 6279 Oct, Diabetes type 2, controlled E11.9 and Morbid obesity due to excess calories E66.01 [facility] [address] [address]- 6340 Sep, [facility] [address] [address]- 1057 Sep, Diabetes type 2, controlled E11.9 [facility] [address] [address]- 8084 Sep, Morbid obesity due to excess calories E66.01 [facility] [id number] [place] [address] 15492- 7869 Aug, Exposure to hepatitis C Z20.5 [facility] [address] [place] [address] 25935- 4018 Aug, Diabetes type 2, controlled E11.9 [facility] [address] [place] [address] 61465- 4463 Jul, Exposure to hepatitis C Z20.5 [facility] [id number] [place] [address] 80179- 5352 Jul, Exposure to hepatitis C Z20.5 [facility] [address] [place] [address] 94193- 2214 Jul, [facility] [address] [place] [address] 63407- 0204 Jul, Diabetes type 2, controlled E11.9 [facility] [address] [address]- 5833 Jun, [facility] [address] [place] [address] 15321- 2972 Jun, Diabetes type 2, controlled E11.9 ; Pain of left foot M79.672 and Pain in right foot M79.671 [facility] [address] [address]- 8031 May, [facility] [address] [place] [address]- 4366 Apr, [facility] [address] [place] [address]- 1883 Apr, [facility] [id number] [place] [address] 15625- 6759 Mar, [facility] [id number] [place] [address] 51448- 0277 Feb, [facility] [id number] [place] [address] 573226- 2851 Feb, [facility] [id number] [place] [address] 20190- 4157 Jan, [facility] [address] 975533- 3621 Dec, Diabetes type 2, controlled E11.9 ; 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 and Abscess, abdomen K65.1 [facility] [id number] [place] [address] 32601- 7226 Dec, Shoulder pain, right 719.41 [facility] [id number] [place] [address] 32834- 0254 November, [facility] [id number] [place] [address] 32469- 4386 November, [facility] [id number] [place] [address] 20285- 3316 Oct, [facility] [id number] [place] [address] 75297- 7366 Sep, [facility] [id number] [place] [address] 50290- 8141 Sep, [facility] [id number] [place] [address] 94107 -5372 Aug, [facility] [id number] [place] [address] 387395- 7484 Aug, [facility] [id number] [place] [address] 62692- 0143 17 Aug, 2015 Cellulitis, unspecified L03.90 ; Cutaneous abscess, unspecified L02.91 ; Diabetes type 2, controlled E11.9 ; Migraine G43.909 and Bilateral low back pain with sciatica, sciatica laterality unspecified M54.40 [facility] [address] [place] [address]6514 13 Aug, 2015 Abscess and cellulitis L03.90 [facility] [id number] [place] [address] 10935- 7184 Aug, [facility] [id number] [place] [address] 59059- 5580 Aug, [facility] [id number] [place] [address] 87149- 6271 Jul, [facility] [id number] [place] [address] 80232- 5777 Jul, Diabetes type 2, controlled E11.9 [facility] [id number] [place] [address] 53246- 5816 Jul, Diabetes type 2, controlled E11.9 [facility] [id number] [place] [address] 73394- 2963 Jun, Diabetes type 2, controlled E11.9 ; Bilateral low back pain with sciatica, sciatica laterality unspecified M54.40 and Morbid obesity, unspecified obesity type E66.01 [facility] [id number] [place] [address] 99835- 9769 Jun, [facility] [id number] [place] [address] 35589- 1968 May, [facility] [id number] [place] [address] 88450- 4129 Apr, [facility] [id number] [place] [address] 83709- 6863 Apr, [facility] [id number] [place] [address] 71345- 5705 Apr, [facility] [address] [place] [address]- 2476 Mar, [facility] [address] [place] [address]- 6073 Mar, [facility] [address] [place] [address]- 0369 Mar, [facility] [address] [place] [address]- 2583 Feb, [facility] [address] [place] [address] 98710- 1100 Feb, [facility] [address] [place] [address]- 9475 Feb, [facility] [address] [address]- 4690 Feb, [facility] [address] [place] [address]- 0304 Feb, Diabetes mellitus without mention of complication, type II or unspecified type, not stated as uncontrolled 250.00 [facility] [address] [place] [address]- 2732 Feb, [facility] [address] [place] [address]- 6772 Feb, [facility] [id number] [place] [address]- 5161 Jan, Diabetes mellitus without mention of complication, type II or unspecified type, not stated as uncontrolled 250.00 and Cellulitis and abscess 682.9 [facility] [address] [place] [address]- 1087 Jan, [facility] [id number] [place] [address]- 0994 Jan, [facility] [address] [place] [address]- 8083 Jan, [facility] [address] [id number] [place] [address]- 9779 Dec, [facility] [address] [id number] [place] [address]- 4780 Dec, [facility] [address] [id number] [place] [address]- 8860 Dec, [facility] [address] [id number] [place] [address]- 9478 November, [facility] [address] [id number] [place] [address]- 9194 Oct, Shoulder pain, right 719.41 [facility] [address] [id number] [place] [address]- 6028 Oct, [facility] [id number] [place] [address]- 7996 Oct, [facility] [address] [id number] [place] [address]- 0671 Sep, [facility] [address] [id number] [place] [address]- 5355 Sep, [facility] [address] [facility] [id number] [place] [address]- 7245 Sep, [facility] [place] [facility] [address] [id number] [place] [address]- 1703 Sep, [facility] [place] [facility] [address] [id number] [place] [address]- 2050 Sep, [facility] [place] [facility] [address] [id number] [place] [address]- 4469 Sep, [facility] [place] [facility] [address] [facility] [id number] [place] [address]- 6739 Sep, [facility] [place] [facility] [address] [facility] [id number] [place] 3031 Sep, [facility] [place] [facility] [address] [id number] [place] [address]- 9497 Aug, [facility] [place] [facility] [address] [id number] [place] [address]- 6489 24 Aug, 2014 [facility] [place] [facility] [address] [id number] [place] [address]- 7482 Aug, [facility] [place] [facility] [address] [id number] [place] [address]- 3779 Aug, [facility] [place] [facility] [address] [id number] [place] [address]- 3962 Jul, [facility] [place] [facility] [address] [id number] [place] [address]- 7435 Jul, [facility] [place] [facility] [address] [id number] [place] [address]- 1621 Jul, [facility] [place] [facility] [address] [id number] [place] [address]- 3707 Jul, [facility] [place] [facility] [address] [id number] [place] [address]- 8737 Jul, [facility] [place] [facility] [address] [id number] [place] [address]- 1667 Jul, [facility] [place] [facility] [address] [id number] [place] [address]- 6083 Jun, [facility] [place] [facility] [address] [id number] [place] [address]- 6713 Jun, [facility] [place] [facility] [address] [id number] [place] [address]- 8509 Jun, [facility] [place] [facility] [address] [id number] [place] [address]- 5237 Jun, [facility] [place] [facility] [address] [id number] [place] [address]- 3451 18 Jun, 2014 [facility] [place] [facility] [address] [id number] [place] [address]- 0849 18 Jun, 2014 [facility] [place] [facility] [address] [id number] [place] [address]- 7907 15 Jun, 2014 [facility] [place] [facility] [address] [id number] [place] [address]- 2321 15 Jun, 2014 [facility] [place] [facility] [address] [id number] [place] [address]- 9507 May, [facility] [place] [facility] [address] [id number] [place] [address]- 0110 May, [facility] [place] [facility] [address] [id number] [place] [address]- 6448 May, [facility] [place] [facility] [address] [id number] [place] [address]- 6680 May, [facility] [place] [facility] [address] [id number] [place] [address]- 5756 May, [facility] [place] [facility] [address] [id number] [place] [address]- 7476 May, [facility] [place] [facility] [address] [id number] [place] [address]- 0784 Apr, [facility] [place] [facility] [address] [id number] [place] [address]- 3875 Apr, [facility] [place] [facility] [address] [id number] [place] [address]- 8526 20 Apr, 2014 [facility] [place] [facility] [address] [id number] [place] [address]- 9748 20 Apr, 2014 [facility] [place] [facility] [address] [id number] [place] [address]- 5885 17 Apr, 2014 [facility] [place] [facility] [address] [id number] [place] [address]- 9829 13 Apr, 2014 [facility] [place] [facility] [address] [id number] [place] [address]- 2801 13 Apr, 2014 [facility] [place] [facility] [address] [id number] [place] [address]- 5950 Mar, [facility] [place] [facility] [address] [id number] [place] [address]- 8549 Mar, [facility] [place] [facility] [address] [id number] [place] [address]- 8582 Mar, [facility] [place] [facility] [address] [id number] [place] [address]- 5284 Mar, [facility] [place] [facility] [address] [id number] [place] [address]- 3067 Feb, [facility] [place] [facility] [address] [id number] [place] [address]- 9426 Feb, [facility] [place] [facility] [address] [id number] [place] [address]- 4365 Feb, [facility] [place] [facility] [address] [id number] [place] [address]- 3635 Feb, [facility] [place] [facility] [address] [id number] [place] [address]- 1187 Feb, [facility] [place] [facility] [address] [id number] [place] [address]- 8982 Feb, [facility] [place] [facility] [address] [id number] [place] [address]- 2612 Jan, [facility] [place] [facility] [address] [id number] [place] [address]- 7324 Jan, [facility] [place] [facility] [address] [id number] [place] [address]- 2385 Jan, [facility] [place] [facility] [address] [id number] [place] [address]- 8822 Jan, [facility] [place] [facility] [address] [id number] [place] [address]- 5839 Jan, [facility] [place] [facility] [address] [id number] [place] [address]- 6106 Jan, [facility] [place] [facility] [address] [id number] [place] [address]- 0997 Jan, [facility] [place] [facility] [address] [id number] [place] [address]- 5893 Jan, [facility] [place] [facility] [address] [id number] [place] [address]- 1535 Jan, [facility] [place] [facility] [address] [id number] [place] [address]- 1812 Jan, [facility] [place] [facility] [address] [id number] [place] [address]- 8460 Dec, [facility] [place] [facility] [address] [id number] [place] [address]- 9637 Dec, [facility] [place] [facility] [address] [id number] [place] [address]- 2706 Dec, [facility] [place] [facility] [address] [id number] [place] [address]- 6520 Dec, [facility] [place] [facility] [address] [id number] [place] [address] November, [facility] [place] [facility] [address] [id number] [place] [address] November, [facility] [place] [facility] [address] [id number] [place] [address] November, [facility] [place] [facility] [address] [id number] [place] [address] November, [facility] [place] [facility] [address] [id number] [place] [address] Oct, [facility] [place] [facility] [address] [id number] [place] [address] Oct, [facility] [place] [facility] [address] [id number] [place] [address] Oct, [facility] [place] [facility] [address] [id number] [place] [address] 14 Oct, 2013 [facility] [address] [id number] [place] [address] 10 Oct, 2013 [facility] [place] [facility] [address] [id number] [place] [address] 10 Oct, 2013 [facility] [address] [id number] [place] [address] Oct, [facility] [place] [facility] [address] [id number] [place] [address] Oct, [facility] [address] [id number] [place] [address] Sep, [facility] [place] [facility] [address] [id number] [place] [address] Sep, [facility] [place] [facility] [address] [id number] [place] [address] Sep, [facility] [address] [id number] [place] [address] Sep, [facility] [place] [facility] [address] [id number] [place] [address] Sep, [facility] [address] [id number] [place] [address] Sep, [facility] [place] [facility] [address] [id number] [place] [address] Aug, [facility] [place] [facility] [address] [id number] [place] [address] Aug, [facility] [place] [facility] [address] [id number] [place] Jul, [facility] [place] [facility] [address] [id number] [place] [address] Jul, [facility] [place] [facility] [address] [id number] [place] [address] Jul, [facility] [place] [facility] [address] [id number] [place] [address] Jul, [facility] [place] [facility] [address] [id number] [place] [address] Jul, [facility] [place] [facility] [address] [id number] [place] [address] Jul, [facility] [place] [facility] [address] [id number] [place] [address] Jul, [facility] [place] [facility] [address] [id number] [place] [address] Jul, [facility] [place] [facility] [address] [id number] [place] [address] Jun, [facility] [place] [facility] [address] [id number] [place] [address] Jun, [facility] [place] [facility] [address] [id number] [place] [address] May, [facility] [place] [facility] [address] [id number] [place] [address] May, [facility] [place] [facility] [address] [id number] [place] [address] Apr, [facility] [place] [facility] [address] [id number] [place] [address] Apr, [facility] [place] [facility] [address] [id number] [place] [address] Apr, [facility] [place] [facility] [address] [id number] [place] [address] Apr, [facility] [place] [facility] [address] [id number] [place] [address] Apr, [facility] [place] [facility] [address] [id number] [place] [address] Apr, [facility] [place] [facility] [address] [id number] [place] [address] Apr, [facility] [place] [facility] [address] [id number] [place] [address] Apr, [facility] [place] [facility] [address] [id number] [place] [address] Apr, [facility] [place] [facility] [address] [id number] [place] [address] Apr, 2012 [facility] [place] [facility] [address] [id number] [place] [address] Apr, 2012 [facility] [place] [facility] [address] [id number] [place] [address] Apr, [facility] [place] [facility] [address] [id number] [place] [address] Apr, [facility] [place] [facility] [address] [id number] [place] [address] Apr, [facility] [place] [facility] [address] [id number] [place] [address] 02 Apr, 2013 [facility] [place] [facility] [address] [id number] [place] [address] 27 Mar, 2012 [facility] [place] [facility] [address] [id number] [place] [address] 27 Mar, 2012 [facility] [place] [facility] [address] [id number] [place] [address] 2547 26 Mar, 2012 [facility] [place] [facility] [address] [id number] [place] [address] 25 Mar, 2012 [facility] [place] [facility] [address] [id number] [place] [address] 16 Mar, 2012 [facility] [place] [facility] [address] [id number] [place] [address] 03 Mar, 2012 [facility] [place] [facility] [address] [id number] [place] [address] 31 Jan, 2012 [facility] [place] [facility] [address] [id number] [place] [address] 16 Jan, 2013 [facility] [place] [facility] [address] [id number] [place] [address] Jan, [facility] [place] [facility] [address] [id number] [place] [address] Dec, [facility] [place] [facility] [address] [id number] [place] [address] Oct, [facility] [place] [facility] [address] [id number] [place] 16 May, 2012 [facility] [place] [facility] [address] [id number] [place] [address] 16 May, 2012 [facility] [place] [facility] [address] [id number] [place] [address] Jun, [facility] [place] [facility] [address] [id number] [place] [address] May, [facility] [place] [facility] [address] [id number] [place] [address] May, [facility] [place] [facility] [address] [id number] [place] [address] May, [facility] [place] [facility] [address] [id number] [place] [address]36 14 Apr, 2011 [facility] [place] [facility] [address] [id number] [place] [address] 7974 13 Apr, 2011 [facility] [place] [facility] [address] [id number] [place] [address] 17 Feb, 2011 [facility] [place] [facility] [address] [id number] [place] [address] 16 Feb, 2011 [facility] [place] [facility] [address] [id number] [place] [address] 269[address] 10 Dec, 2010 [facility] [place] [facility] [address] [id number] [place] [address]- [address] 12 Oct, 2010 [facility] [place] [facility] [address] [id number] [place] [address]- [address] 19 Sep, 2010 [facility] [place] [facility] [address] [id number] [place] [address]- [address] 10 Sep, 2010 [facility] [place] [facility] [address] [id number] [place] [address]- [address]166 20 Jul, 2010 [facility] [place] [facility] [address] [id number] [place] [address] 11 Jul, 2010 [facility] [place] [facility] [address] [id number] [place] [address]- [address] 28 Jun, 2010 [facility] [place] [facility] [address] [id number] [place] [address]- [address] 23 Jun, 2010 [facility] [place] [facility] [address] [id number] [place] [address]- 9959 14 Jun, 2010 [facility] [place] [facility] [address] [id number] [place] [address]- [address] 14 Jun, 2010 [facility] [place] [facility] [address] [id number] [place] [address]- [address] 08 Jun, 2010 [facility] [place] [facility] [address] [id number] [place] [address]- 9070 30 May, 2010 [facility] [place] [facility] [address] [id number] [place] [address] 23 May, 2010 [facility] [place] [facility] [address] [id number] [place] [address] 2547 17 May, 2010 [facility] [place] [facility] [address] [id number] [place] [address] 2546 17 May, 2010 [facility] [place] [facility] [address] [id number] [place] [address]- 9021 17 May, 2010 [facility] [place] [facility] [address] [id number] [place] [address] 17 May, 2010 [facility] [place] [facility] [id number] [place] [address] Apr, [facility] [id number] [place] [address] Apr, [facility] [id number] [place] [address] Mar, [facility] [id number] [place] [address] Feb, [facility] [id number] [place] [address] 25[address] Sep, [facility] [id number] [place] [address] Sep, [facility] [id number] [place] [address] Aug, [facility] [id number] [place] [address] Jun, [facility] [id number] [place] Jun, [facility] [id number] [place] [address]- 89[address] May, [facility] [id number] [place] [address]- [address] Dec, [facility] [address] [id number] [place] Sep, IMMUNIZATIONS No Known Immunizations SOCIAL HISTORY Never Assessed REASON FOR VISIT sick PLAN OF CARE VITAL SIGNS MEDICATIONS Medication Instructions Dosage Frequency Start Date End Date Duration Status Vitamins 0.8 MG Orally Once a day 1 tablet 24h Active Amoxicillin 500 MG Orally every 8 hrs 1 capsule 8h May, 10 day( s) Active Trintellix 5 MG Orally Once a day 1 tablet 24h Feb, 30 day(s) Active Norvasc 10 mg Orally Once a day 1 tablet 24h Dec, 30 day(s) Active [place] 5-325 MG Orally 4 times a day 1 tablet as needed 6h May, 28 days Active Albuterol Sulfate HFA 108 (90 Base) MCG/ACT Inhalation every 6 hrs 2 puffs as needed 6h 17 Active Ibuprofen 200 MG Orally every 6 hrs 1 tablet as needed 6h Active Tessalon Perles 100 mg Orally Three times a day 1 capsule as needed 8h 10 Active Sklice 0.5 % Externally Once a day as directed 24h Jan, 1 dose Not-Taking Simvastatin 20 mg Orally Once a day 1 tablet in the evening 24h Jul, 30 day(s) Not-Taking Cetirizine HCl 10 mg Orally Once a day 1 tablet 24h Dec, 30 day (s) Active Dextroamphetamine Sulfate 10 MG Orally Three times a day 2 tablets 8h May, 28 days Active Ativan 0.5 MG Orally every 6 hrs 1 tablet as needed 6h Mar, 28 days Active RESULTS No Results PROCEDURES No Known procedures [...]
--- OUTSIDE RECORDS SUMMARY | 2018-06-27 07:20 | XMS REPORT ---
Author Author ALEXIS MARTÍNEZ [facility] IN [facility] Address [address] [place] [address] Care Team Providers Care Center Administrator Name Role Phone ALEXIS MARTÍNEZ Unavailable PROBLEMS Type Condition ICD9-CM Code GRV06-RI Code Onset Dates Condition Status SNOMED Code Problem Lumbago with sciatica, right side M54.41 Active [id number] Problem Diabetes type 2, controlled E11.9 Active 51626400 Problem Other chronic pain G89.29 Active 71657356 Problem High risk medications (not anticoagulants) long-term use Z79.899 Active 623191265 Problem Obstructive sleep apnea syndrome G47.33 Active 15665855 Problem Lumbago with sciatica, left side M54.42 Active 730107879 Problem Bilateral low back pain with sciatica, sciatica laterality unspecified M54.40 Active 95289455 Problem Essential hypertension I10 Active 18399664 Problem Migraine without aura and without status migrainosus, not intractable G43.009 Active 840784859 Problem Morbid obesity due to excess calories E66.01 Active 121826250 Problem Mood disorder F39 Active 87842256 Problem Anxiety F41.9 Active 59271435 ALLERGIES Substance Reaction Event Type Date Status Wellbutrin Unknown Drug Allergy Jun, Active Effexor increases depression -JCriserRN Drug Allergy Jun, Active ENCOUNTERS Encounter Location Date Diagnosis [facility] IN [facility] [address] [id number], [place] [address] Jun, Stye, right H00.013 [facility] [address], [place] [address] May, [facility] [address] [facility] [id number], [place] [address] May, Bilateral low back pain with sciatica, sciatica laterality unspecified M54.40 ; Morbid obesity due to excess calories E66.01 and Diabetes type 2, controlled E11.9 [facility] [address] [id number], [place] [address] Apr, Morbid obesity due to excess calories E66.01 [facility] [id number] [place] [address] 36408- 2893 18 Apr, 2018 Diabetes type 2, controlled E11.9 and Bilateral low back pain with sciatica, sciatica laterality unspecified M54.40 [facility] [id number] [place] [address] 11958- 4710 26 Mar, 2018 Acute pain of left shoulder M25.512 [facility] [id number] [place] [address] 57737- 6548 21 Mar, 2018 Morbid obesity due to excess calories E66.01 [facility] [id number] [place] [address] 03978- 9445 19 Mar, 2018 Diabetes type 2, controlled E11.9 and Bilateral low back pain with sciatica, sciatica laterality unspecified M54.40 [facility] [address], [place] [address] Feb, Anxiety F41.9 [facility] [id number] [place] [address] 03333- 1394 Feb, Morbid obesity due to excess calories E66.01 [facility] [id number] [place] [address] 86813- 8671 Feb, Bilateral low back pain with sciatica, sciatica laterality unspecified M54.40 and Diabetes type 2, controlled E11.9 [facility] [address] [id number], [place] [address] 1437 Jan, Morbid obesity due to excess calories E66.01 [facility] [address] [id number], [place] [address] 0952 Jan, [facility] [id number] [place] [address] 49757- 6080 Jan, Diabetes type 2, controlled E11.9 [facility] [id number] [place] [address] 29397- 1083 Jan, Diabetes type 2, controlled E11.9 [facility] [id number] [place] [address] 64152- 2986 Jan, Bilateral low back pain with sciatica, sciatica laterality unspecified M54.40 and Dysfunction of both eustachian tubes H69.83 [facility] [id number] [place] [address] 48401- 1746 Jan, Morbid obesity due to excess calories E66.01 [facility] [address] 6[address]94- 8702 Dec, Diabetes type 2, controlled E11.9 [facility] [id number] [place] [address] 11477- 9985 Dec, Morbid obesity due to excess calories E66.01 ; Essential hypertension I10 ; Tobacco abuse Z72.0 and Tobacco abuse counseling Z71.6 [facility] [id number] [place] [address] 71387- 1428 November, Diabetes type 2, controlled E11.9 [facility] [id number] [place] [address] 84744- 4163 Oct, Diabetes type 2, controlled E11.9 [facility] [id number] [place] [address] 58852- 1835 Sep, Diabetes type 2, controlled E11.9 [facility] [id number] [place] [address] 07954- 5189 Sep, [facility] [id number] [place] [address] 18474- 3112 Aug, Diabetes type 2, controlled E11.9 and Morbid obesity due to excess calories E66.01 [facility] [id number] [place] [address] 62767- 8981 Jul, Anxiety F41.9 [facility] [address], [place] [address] 0079 Jul, [facility] [id number] [place] [address] 59173- 8192 Jul, Anxiety F41.9 ; Mood disorder F39 ; Morbid obesity due to excess calories E66.01 and Diabetes type 2, controlled E11.9 [facility] [id number] [place] [address] 46397- 8336 Jun, Anxiety F41.9 [facility] [id number] [place] [address] 97629- 6528 Jun, Anxiety F41.9 ; Morbid obesity due to excess calories E66.01 and Diabetes type 2, controlled E11.9 [facility] [address], [place] [address] May, Migraine without aura and without status migrainosus, not intractable G43.009 ; Diabetes type 2, controlled E11.9 and Morbid obesity due to excess calories E66.01 [facility] [address] [place] [address] 65353- 5287 Apr, Migraine without aura and without status migrainosus, not intractable G43.009 ; Diabetes type 2, controlled E11.9 and Morbid obesity due to excess calories E66.01 [facility] [address], [place] [address] 7726 Apr, Diabetes type 2, controlled E11.9 and Morbid obesity due to excess calories E66.01 [facility] [address], [place] [address] 0456 Mar, Diabetes type 2, controlled E11.9 and Morbid obesity due to excess calories E66.01 [facility] [address] [place] [address] 30556- 7635 Mar, Diabetes type 2, controlled E11.9 and Mood disorder F39 [facility] [address], [place] [address] 7843 Feb, Morbid obesity due to excess calories E66.01 and Diabetes type 2, controlled E11.9 [facility] [address] [place] [address] 38169- 1933 Jan, Diabetes type 2, controlled E11.9 and Morbid obesity due to excess calories E66.01 [facility] [id number] [place] [address] 81680- 0994 Dec, Diabetes type 2, controlled E11.9 and Morbid obesity due to excess calories E66.01 [facility] [id number] [place] [address] 42510- 3945 Dec, Morbid obesity due to excess calories E66.01 [facility] [id number] [place] [address] 98564- 0408 November, Diabetes type 2, controlled E11.9 and Morbid obesity due to excess calories E66.01 [facility] [id number] [place] [address] 58481- 4319 November, Anxiety F41.9 and Injury of right foot, initial encounter S99.921A [facility] [id number] [place] [address] 46391- 6186 November, Diabetes type 2, controlled E11.9 and Morbid obesity due to excess calories E66.01 [facility] [id number] [place] [address] 56347- 5947 November, [facility] [id number] [place] [address] 35999- 4205 Oct, Family history of brain aneurysm Z82.49 and Migraine without aura and without status migrainosus, not intractable G43.009 [facility] [id number] [place] [address] 16586- 0984 Oct, Diabetes type 2, controlled E11.9 [facility] [address] [place] [address] 45797- 4297 Oct, Morbid obesity due to excess calories E66.01 ; Family history of brain aneurysm Z82.49 and Migraine without aura and without status migrainosus, not intractable G43.009 [facility] [address], [place] [address]- 1872 Oct, Diabetes type 2, controlled E11.9 and Morbid obesity due to excess calories E66.01 [facility] [address], [place] [address]- 1228 Sep, [facility] [id number] [place] [address] 66922- 2328 Sep, Diabetes type 2, controlled E11.9 [facility] [address] [place] [address] 40850- 8569 Sep, Morbid obesity due to excess calories E66.01 [facility] [id number] [place] [address] 92815- 8914 Aug, Exposure to hepatitis C Z20.5 [facility] [id number] [place] [address] 54430- 2869 Aug, Diabetes type 2, controlled E11.9 [facility] [address] [place] [address] 90026- 6025 Jul, Exposure to hepatitis C Z20.5 [facility] [address] [place] [address] 98616- 5914 Jul, Exposure to hepatitis C Z20.5 [facility] [address], [place] [address]- 4092 Jul, [facility] [address], [place] [address]- 8668 Jul, Diabetes type 2, controlled E11.9 [facility] [address] [place] [address] 83165- 2348 Jun, [facility] [address] [place] [address] 40656- 4349 Jun, Diabetes type 2, controlled E11.9 ; Pain of left foot M79.672 and Pain in right foot M79.671 [facility] [address], [place] [address]- 1400 May, [facility] [id number] [place] [address] 63327- 7434 Apr, [facility] [id number], [place] [address]- 9034 Apr, [facility] [id number] [place] [address] 04550- 8472 Mar, [facility] [id number] [place] [address] 85924- 0886 Feb, [facility] [id number] [place] [address] 11446- 9142 Feb, [facility] [id number] [place] [address] 02514- 7929 Jan, [facility] [id number] [place] [address] 62591- 3019 Dec, Diabetes type 2, controlled E11.9 ; 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 and Abscess, abdomen K65.1 [facility] [address], [place] [address]- 2987 Dec, Shoulder pain, right 719.41 [facility] [address], [place] [address]- 6842 November, [facility] [id number], [place] [address]- 2976 November, [facility] [address], [place] [address]- 9942 Oct, [facility] [address] 9499 Sep, [facility] [address], [place] [address]- 1209 Sep, [facility] [address], [place] [address] 29 Aug, 2015 [facility] [id number] [place] [address] 92266- 9776 Aug, [facility] [id number] [place] [address] 11581- 2009 17 Aug, 2015 Cellulitis, unspecified L03.90 ; Cutaneous abscess, unspecified L02.91 ; Diabetes type 2, controlled E11.9 ; Migraine G43.909 and Bilateral low back pain with sciatica, sciatica laterality unspecified M54.40 [facility] [id number] [place] [address] 02784 -9733 Aug, Abscess and cellulitis L03.90 [facility] [id number] [place] [address] 76378- 9982 Aug, [facility] [id number] [place] [address] 72489- 7369 Aug, [facility] [id number] [place] [address] 06970- 9059 Jul, [facility] [id number] [place] [address] 05741- 6666 Jul, Diabetes type 2, controlled E11.9 [facility] [address] [place] [address] 71831- 5648 Jul, Diabetes type 2, controlled E11.9 [facility] [id number] [place] [address] 92017- 2380 Jun, Diabetes type 2, controlled E11.9 ; Bilateral low back pain with sciatica, sciatica laterality unspecified M54.40 and Morbid obesity, unspecified obesity type E66.01 [facility] [id number] [place] [address] 55308- 1971 Jun, [facility] [id number] [place] [address] 79999- 6396 May, [facility] [address] [id number] [place] [address]- 2130 Apr, [facility] [address] [facility] [id number] [place] 2034 Apr, [facility] [address] [facility] [id number] [place] [address]- 5212 Apr, [facility] [address] [place] [address]- 2943 Mar, [facility] [address] [facility] [id number] [place] [address]- 1653 Mar, [facility] [address] [facility] [id number] [place] [address]- 3243 Mar, [facility] [address] [place] [address]- 7989 Feb, [facility] [address], [place] [address]- 7837 Feb, [facility] [id number], [place] [address]- 2608 Feb, [facility] [address], [place] [address]- 4086 Feb, [facility] [id number], [place] [address]- 4285 Feb, Diabetes mellitus without mention of complication, type II or unspecified type, not stated as uncontrolled 250.00 [facility] [address] [id number], [place] [address]- 9829 Feb, [facility] [address] [id number], [place] [address]- 5977 Feb, [facility] [address] [id number], [place] [address]- 0622 Jan, Diabetes mellitus without mention of complication, type II or unspecified type, not stated as uncontrolled 250.00 and Cellulitis and abscess 682.9 [facility] [address] [id number] [place] [address]- 3216 Jan, [facility] [address] [id number] [place] [address]- 9771 Jan, [facility] [place] [facility] [address] [id number] [place] [address] 2546 Jan, [facility] [place] [facility] [address] [id number] [place] [address]- 6082 Dec, [facility] [place] [facility] [address] [id number] [place] [address] 2541 Dec, [facility] [place] [facility] [address] [id number] [place] [address]- 1352 Dec, [facility] [address] [id number] [place] [address]- 5942 November, [facility] [address] [id number] [place] [address]- 7855 Oct, Shoulder pain, right 719.41 [facility] [address] [id number] [place] [address]- 9693 Oct, [facility] [address] [facility] [id number] [place] [address]- 1739 Oct, [facility] [address] [id number] [place] [address]- 2227 Sep, [facility] [place] [facility] [address] [id number] [place] [address]- 5682 Sep, [facility] [place] [facility] [address] [id number] [place] [address]- 6376 Sep, [facility] [place] [facility] [address] [id number] [place] [address] 2546 Sep, [facility] [place] [facility] [address] [id number] [place] [address]- 4240 Sep, [facility] [place] [facility] [address] [id number] [place] [address]- 3759 24 Sep, 2014 [facility] [place] [facility] [address] [id number] [place] [address]- 6394 14 Sep, 2014 [facility] [place] [facility] [address] [id number] [place] [address]- 2383 14 Sep, 2014 [facility] [place] [facility] [address] [id number] [place] [address]- 9815 24 Aug, 2014 [facility] [place] [facility] [address] [id number] [place] [address]- 0846 24 Aug, 2014 [facility] [place] [facility] [address] [id number] [place] [address]- 9516 Aug, [facility] [place] [facility] [address] [id number] [place] [address]- 0869 Aug, [facility] [place] [facility] [address] [id number] [place] [address]- 7478 Jul, [facility] [place] [facility] [address] [id number] [place] [address]- 3547 27 Jul, 2014 [facility] [place] [facility] [address] [id number] [place] [address]- 3599 Jul, [facility] [place] [facility] [address] [id number] [place] [address]- 1594 14 Jul, 2014 [facility] [place] [facility] [address] [id number] [place] [address]- 6410 Jul, [facility] [place] [facility] [address] [id number] [place] [address]- 0091 Jul, [facility] [place] [facility] [address] [id number] [place] 4711 Jun, [facility] [place] [facility] [address] [id number] [place] [address]- 6112 Jun, [facility] [place] [facility] [address] [id number] [place] [address]- 1388 Jun, [facility] [place] [facility] [address] [id number] [place] [address]- 9753 19 Jun, 2014 [facility] [place] [facility] [address] [id number] [place] [address]- 8921 18 Jun, 2014 [facility] [place] [facility] [address] [id number] [place] [address]- 7423 18 Jun, 2014 [facility] [place] [facility] [address] [id number] [place] [address]- 5276 15 Jun, 2014 [facility] [place] [facility] [address] [id number] [place] [address]- 0731 Jun, [facility] [place] [facility] [address] [id number] [place] [address]- 2521 May, [facility] [place] [facility] [address] [id number] [place] [address]- 2919 May, [facility] [place] [facility] [address] [id number] [place] [address]- 4192 May, [facility] [place] [facility] [address] [id number] [place] [address]- 6963 May, [facility] [place] [facility] [address] [id number] [place] [address]- 0110 May, [facility] [place] [facility] [address] [id number] [place] [address]- 0089 May, [facility] [place] [facility] [address] [id number], [place] [address]- 5111 Apr, [facility] [place] [facility] [address] [id number] [place] [address]- 5218 Apr, [facility] [place] [facility] [address] [id number] [place] [address]- 2536 Apr, [facility] [place] [facility] [address] [id number], [place] [address]- 6584 Apr, [facility] [place] [facility] [address] [id number], [place] [address]- 5927 Apr, [facility] [place] [facility] [address] [id number] [place] [address]- 8399 Apr, [facility] [place] [facility] [address] [id number] [place] [address]- 9811 Apr, [facility] [place] [facility] [address] [id number] [place] [address]- 8106 Mar, [facility] [place] [facility] [address] [id number] [place] [address]- 2057 Mar, [facility] [place] [facility] [address] [id number] [place] [address]- 8230 Mar, [facility] [place] [facility] [address] [id number] [place] [address]- 1760 Mar, [facility] [place] [facility] [address] [id number] [place] [address]- 2868 Feb, [facility] [place] [facility] [address] [id number] [place] [address]- 2638 Feb, [facility] [place] [facility] [address] [id number] [place] [address]- 3569 Feb, [facility] [place] [facility] [address] [id number] [place] [address]- 0066 Feb, [facility] [place] [facility] [address] [id number] [place] [address]- 2828 Feb, [facility] [place] [facility] [address] [id number] [place] [address]- 4655 Feb, [facility] [place] [facility] [address] [id number] [place] [address] Jan, [facility] [place] [facility] [address] [id number] [place] [address] Jan, [facility] [place] [facility] [address] [id number] [place] [address] Jan, [facility] [place] [facility] [address] [id number] [place] [address] Jan, [facility] [place] [facility] [address] [id number] [place] [address] Jan, [facility] [place] [facility] [address] [id number] [place] [address] Jan, [facility] [place] [facility] [address] [id number] [place] [address] Jan, [facility] [place] [facility] [address] [id number] [place] [address] Jan, [facility] [place] [facility] [address] [id number] [place] [address] Jan, [facility] [place] [facility] [address] [id number] [place] [address] Jan, [facility] [place] [facility] [address] [id number] [place] [address] Dec, [facility] [place] [facility] [address] [id number] [place] [address] Dec, [facility] [place] [facility] [address] [id number] [place] [address] Dec, [facility] [place] [facility] [address] [id number] [place] [address] Dec, [facility] [place] [facility] [address] [id number] [place] [address] November, [facility] [place] [facility] [address] [id number] [place] [address] November, [facility] [place] [facility] [address] [id number] [place] [address] November, [facility] [place] [facility] [address] [id number] [place] [address] November, [facility] [place] [facility] [address] [id number] [place] [address] Oct, [facility] [place] [facility] [address] [id number] [place] [address] Oct, [facility] [place] [facility] [address] [id number] [place] [address] Oct, [facility] [place] [facility] [address] [id number] [place] [address] Oct, [facility] [place] [facility] [address] [id number] [place] [address] Oct, [facility] [place] [facility] [address] [id number] [place] [address] Oct, [facility] [place] [facility] [address] [id number] [place] [address] Oct, [facility] [place] [facility] [address] [id number] [place] [address] Oct, [facility] [place] [facility] [address] [id number] [place] [address] Sep, [facility] [place] [facility] [address] [id number] [place] [address] Sep, [facility] [place] [facility] [address] [id number] [place] [address] Sep, [facility] [place] [facility] [address] [id number] [place] [address] Sep, [facility] [place] [facility] [address] [id number], [place] [address] Sep, [facility] [place] [facility] [address] [id number] [place] [address] Sep, [facility] [place] [facility] [address] [id number] [place] [address] Aug, [facility] [place] [facility] [address] [id number] [place] [address] Aug, [facility] [place] [facility] [address] [id number] [place] [address] Jul, [facility] [place] [facility] [address] [id number] [place] [address] Jul, [facility] [place] [facility] [address] [id number] [place] [address] Jul, [facility] [place] [facility] [address] [id number] [place] [address] Jul, [facility] [place] [facility] [address] [id number] [place] [address] Jul, [facility] [facility] [address] [id number] [place] [address] Jul, [facility] [place] [facility] [address] [id number] [place] [address] Jul, [facility] [place] [facility] [address] [id number] [place] [address] Jul, [facility] [place] [facility] [address] [id number] [place] [address] Jun, [facility] [place] [facility] [address] [id number] [place] [address] Jun, [facility] [place] [facility] [address] [facility] [id number] [place] [address] May, [facility] [place] [facility] [address] [id number] [place] [address] May, [facility] [place] [facility] [address] [id number] [place] [address] Apr, [facility] [place] [facility] [address] [id number] [place] [address] Apr, [facility] [place] [facility] [address] [id number] [place] [address] Apr, [facility] [place] [facility] [address] [id number] [place] [address] Apr, [facility] [place] [facility] [address] [id number] [place] [address] Apr, [facility] [place] [facility] [address] [id number] [place] [address] Apr, [facility] [place] [facility] [address] [id number] [place] [address] Apr, [facility] [place] [facility] [address] [id number] [place] [address] Apr, [facility] [place] [facility] [address] [id number] [place] [address] Apr, [facility] [place] [facility] [address] [id number] [place] [address] Apr, [facility] [place] [facility] [address] [id number] [place] [address] Apr, [facility] [place] [facility] [address] [id number] [place] [address] Apr, [facility] [place] [facility] [address] [id number] [place] [address] Apr, [facility] [place] [facility] [address] [id number] [place] [address] Apr, [facility] [place] [facility] [address] [id number] [place] [address] Apr, [facility] [place] [facility] [address] [id number], [place] [address] 27 Mar, 2013 [facility] [facility] [address] [id number] [place] [address] 27 Mar, 2013 [facility] [place] [facility] [address] [id number] [place] [address] 26 Mar, 2013 [facility] [place] [facility] [address] [id number] [place] [address] 25 Mar, 2013 [facility] [place] [facility] [address] [id number] [place] [address] 16 Mar, 2013 [facility] [place] [facility] [address] [id number] [place] [address] Mar, [facility] [place] [facility] [address] [id number] [place] [address] Jan, [facility] [place] [facility] [address] [id number] [place] [address] Jan, [facility] [place] [facility] [address] [id number] [place] [address] Jan, [facility] [place] [facility] [address] [id number] [place] [address] Dec, [facility] [place] [facility] [address] [id number] [place] [address] Oct, [facility] [address] [id number] [place] [address] May, [facility] [place] [facility] [address] [id number] [place] [address] May, [facility] [address] [id number] [place] [address] Jun, [facility] [address] [id number] [place] [address] May, [facility] [address] [id number], [place] [address] May, [facility] [address] [id number], [place] [address] May, [facility] [place] [address] [id number] [place] [address] 14 Apr, 2011 [facility] [place] [facility] [address] [id number] [place] [address] 13 Apr, 2011 [facility] [place] [facility] [address] [id number] [place] [address] 17 Feb, 2011 [facility] [address] [id number] [place] [address] 16 Feb, 2011 [facility] [address] [id number] [place] [address] 10 Dec, 2010 [facility] [address] [id number] [place] [address] 12 Oct, 2010 [facility] [address] [id number] [place] [address] 19 Sep, 2010 [facility] [address] [id number] [place] [address] 10 Sep, 2010 [facility] [address] [id number] [place] [address]- [address] 20 Jul, 2010 [facility] [address] [id number] [place] [address]- [address] 11 Jul, 2010 [facility] [address] [id number] [place] [address] 28 Jun, 2010 [facility] [address] [id number] [place] [address]- [address] 23 Jun, 2010 [facility] [address] [id number] [place] [address]- [address] 14 Jun, 2010 [facility] [address] [id number] [place] [address] 14 Jun, 2010 [facility] [address] [id number] [place] [address]47 08 Jun, 2010 [facility] [address] [id number] [place] [address] 25[address] 30 May, 2010 [facility] [address] [id number] [place] [address]- [address] 23 May, 2010 [facility] [address] [id number] [place] [address]- [address] 17 May, 2010 [facility] [address] [id number] [place] [address] May, [facility] [address] [facility] [id number], [place] [address] May, [facility] [address] [facility] [id number], [place] [address] May, [facility] [address] [facility] [id number], [place] [address] Apr, [facility] [address] [facility] [id number], [place] [address] Apr, [facility] [address] [facility] [id number], [place] [address] Mar, [facility] [address] [facility] [id number], [place] [address] Feb, [facility] [id number], [place] [address] Sep, [facility] [id number], [place] [address] Sep, [facility] [id number], [place] [address] Aug, [facility] [id number], [place] [address] Jun, [facility] [address] [id number], [place] [address] Jun, [facility] [address] [id number], [place] [address] May, [facility] [address] [id number], [place] [address] Dec, [facility] [address] [id number], [place] [address] Sep, IMMUNIZATIONS No Known Immunizations SOCIAL HISTORY Never Assessed REASON FOR VISIT right eye is red, swollen for the past 3 days. reports pain in tis eye. [email or web address] PLAN OF CARE Activity Details Follow Up Follow up here or with PCP if any concerns. Reason: VITAL SIGNS Height 69 in 2018-06-19 Weight 267.2 lbs 2018-06-19 Temperature 97.8 degrees Fahrenheit 2018-06-19 Heart Rate 90 bpm 2018-06-19 Respiratory Rate 20 2018-06-19 BMI 39.45 kg/m2 2018-06-19 Blood pressure systolic 146 mmHg 2018-06-19 Blood pressure diastolic 84 mmHg 2018-06-19 MEDICATIONS Medication Instructions Dosage Frequency Start Date End Date Duration Status Gentamicin Sulfate 0.3 % Ophthalmic every 4 hrs 1 drop into affected eye 4h Jun, 7 days Active Ibuprofen 200 MG Orally every 6 hrs 1 tablet as needed 6h Active Cetirizine HCl 10 mg Orally Once a day 1 tablet 24h Dec, 30 day (s) Active Tessalon Perles 100 mg Orally Three times a day 1 capsule as needed 8h 10 Active Trintellix 5 MG Orally Once a day 1 tablet 24h Feb, 30 day(s) Active Vitamins 0.8 MG Orally Once a day 1 tablet 24h Active Dextroamphetamine Sulfate 10 MG Orally Three times a day 2 tablets 8h May, 28 days Active Hobson 5-325 MG Orally 4 times a day 1 tablet as needed 6h May, 28 days Active Norvasc 10 mg Orally Once a day 1 tablet 24h Dec, 30 day(s) Active Ativan 0.5 MG Orally every 6 hrs 1 tablet as needed 6h Mar, 28 days Active Albuterol Sulfate HFA 108 (90 Base) MCG/ACT Inhalation every 6 hrs 2 puffs as needed 6h 17 Active RESULTS No Results PROCEDURES No Known [...]
--- OUTSIDE RECORDS SUMMARY | 2018-06-27 07:21 | XMS REPORT ---
Author Author ARABELLA DIXON Organization [facility] Address [address] [place] [address] Care Team Providers Care Horticultural Agent Name Role Phone ARABELLA DIXON Unavailable PROBLEMS Type Condition ICD9-CM Code MAX03-WD Code Onset Dates Condition Status SNOMED Code Problem Lumbago with sciatica, right side M54.41 Active 070316604423391 Problem Diabetes type 2, controlled E11.9 Active 25279084 Problem Other chronic pain G89.29 Active 17977853 Problem High risk medications (not anticoagulants) long-term use Z79.899 Active 334983402 Problem Obstructive sleep apnea syndrome G47.33 Active 53955161 Problem Lumbago with sciatica, left side M54.42 Active 665666011 Problem Bilateral low back pain with sciatica, sciatica laterality unspecified M54.40 Active 09755947 Problem Essential hypertension I10 Active 96296167 Problem Migraine without aura and without status migrainosus, not intractable G43.009 Active 788177302 Problem Morbid obesity due to excess calories E66.01 Active 974116225 Problem Mood disorder F39 Active 74821835 Problem Anxiety F41.9 Active 17093217 ALLERGIES Substance Reaction Event Type Date Status Wellbutrin Unknown Drug Allergy Mar, Active Effexor increases depression -JCriserRN Drug Allergy Mar, Active ENCOUNTERS Encounter Location Date Diagnosis [facility] [id number] [address] Apr, [facility] [id number] [place] [address] 36848- 9858 Mar, Acute pain of left shoulder M25.512 [facility] [id number] [address] 7074 Mar, Morbid obesity due to excess calories E66.01 [facility] [address] [address] Mar, Diabetes type 2, controlled E11.9 and Bilateral low back pain with sciatica, sciatica laterality unspecified M54.40 [facility] [id number] [place] [address] 58109- 4123 Feb, Anxiety F41.9 [facility] [id number] [place] [address] 23909- 1613 Feb, Morbid obesity due to excess calories E66.01 [facility] [id number] [place] [address] 45271- 2681 Feb, Bilateral low back pain with sciatica, sciatica laterality unspecified M54.40 and Diabetes type 2, controlled E11.9 [facility] [id number] [place] [address] 07757- 0919 Jan, Morbid obesity due to excess calories E66.01 [facility] [id number] [place] [address] 90843- 2931 Jan, [facility] [id number] [place] [address] 16385- 4603 Jan, Diabetes type 2, controlled E11.9 [facility] [id number] [place] [address] 55318- 3433 Jan, Diabetes type 2, controlled E11.9 [facility] [id number] [place] [address] 87119- 8532 Jan, Bilateral low back pain with sciatica, sciatica laterality unspecified M54.40 and Dysfunction of both eustachian tubes H69.83 [facility] [address] [address] 1564 Jan, Morbid obesity due to excess calories E66.01 [facility] [id number] [place] [address] 77863- 6842 Dec, Diabetes type 2, controlled E11.9 [facility] [id number] [place] [address] 57470- 6765 Dec, Morbid obesity due to excess calories E66.01 ; Essential hypertension I10 ; Tobacco abuse Z72.0 and Tobacco abuse counseling Z71.6 [facility] [id number] [place] [address] 68915- 8658 November, Diabetes type 2, controlled E11.9 [facility] [id number] [place] [address] 03741- 6767 Oct, Diabetes type 2, controlled E11.9 [facility] [id number] [place] [address] 52894- 5069 Sep, Diabetes type 2, controlled E11.9 [facility] [id number] [place] [address] 31792- 5883 Sep, [facility] [id number] [place] [address] 07652- 8024 Aug, Diabetes type 2, controlled E11.9 and Morbid obesity due to excess calories E66.01 [facility] [id number] [place] [address] 59097- 5009 Jul, Anxiety F41.9 [facility] [id number] [place] [address] 45006- 4714 Jul, [facility] [id number] [place] [address] 04711- 5097 Jul, Anxiety F41.9 ; Mood disorder F39 ; Morbid obesity due to excess calories E66.01 and Diabetes type 2, controlled E11.9 [facility] [address] [address]- 8816 Jun, Anxiety F41.9 [facility] [id number] [place] [address] 42148- 4125 Jun, Anxiety F41.9 ; Morbid obesity due to excess calories E66.01 and Diabetes type 2, controlled E11.9 [facility] [id number] [place] [address] 23771- 3164 May, Migraine without aura and without status migrainosus, not intractable G43.009 ; Diabetes type 2, controlled E11.9 and Morbid obesity due to excess calories E66.01 [facility] [id number] [place] [address] 67389- 9310 Apr, Migraine without aura and without status migrainosus, not intractable G43.009 ; Diabetes type 2, controlled E11.9 and Morbid obesity due to excess calories E66.01 [facility] [id number] [place] [address] 87786- 2105 Apr, Diabetes type 2, controlled E11.9 and Morbid obesity due to excess calories E66.01 [facility] [id number] [place] [address] 78203- 3801 Mar, Diabetes type 2, controlled E11.9 and Morbid obesity due to excess calories E66.01 [facility] [id number] [place] [address] 63708- 7377 Mar, Diabetes type 2, controlled E11.9 and Mood disorder F39 [facility] [id number] [place] [address] 08403- 8165 Feb, Morbid obesity due to excess calories E66.01 and Diabetes type 2, controlled E11.9 [facility] [id number] [place] [address] 36310- 4250 Jan, Diabetes type 2, controlled E11.9 and Morbid obesity due to excess calories E66.01 [facility] [id number] [place] [address] 60994- 5230 Dec, Diabetes type 2, controlled E11.9 and Morbid obesity due to excess calories E66.01 [facility] [id number] [place] [address] 60305- 5374 Dec, Morbid obesity due to excess calories E66.01 [facility] [id number] [place] [address] 12391- 8430 November, Diabetes type 2, controlled E11.9 and Morbid obesity due to excess calories E66.01 [facility] [address] [place] [address] 01421- 2477 November, Anxiety F41.9 and Injury of right foot, initial encounter S99.921A [facility] [id number] [place] [address] 22721- 8871 November, Diabetes type 2, controlled E11.9 and Morbid obesity due to excess calories E66.01 [facility] [id number] [place] [address] 77455- 2528 November, [facility] [id number] [place] [address] 30347- 7439 Oct, Family history of brain aneurysm Z82.49 and Migraine without aura and without status migrainosus, not intractable G43.009 [facility] [id number] [place] [address] 60456- 0841 Oct, Diabetes type 2, controlled E11.9 [facility] [id number] [place] [address] 21881- 2739 Oct, Morbid obesity due to excess calories E66.01 ; Family history of brain aneurysm Z82.49 and Migraine without aura and without status migrainosus, not intractable G43.009 [facility] [id number] [place] [address] 03493- 2746 Oct, Diabetes type 2, controlled E11.9 and Morbid obesity due to excess calories E66.01 [facility] [id number] [place] [address] 87509- 3403 Sep, [facility] [id number] [place] [address] 07404- 9167 Sep, Diabetes type 2, controlled E11.9 [facility] [id number] [place] [address] 97269- 8661 Sep, Morbid obesity due to excess calories E66.01 [facility] [id number] [place] [address] 56267- 0720 Aug, Exposure to hepatitis C Z20.5 [facility] [address] [address]- 6383 Aug, Diabetes type 2, controlled E11.9 [facility] [id number] [place] [address] 686452- 2152 Jul, Exposure to hepatitis C Z20.5 [facility] [id number] [place] [address] 43613- 2364 Jul, Exposure to hepatitis C Z20.5 [facility] [id number] [place] [address] 60461- 9400 Jul, [facility] [id number] [place] [address] 19525- 3777 Jul, Diabetes type 2, controlled E11.9 [facility] [id number] [place] [address] 93870- 8671 Jun, [facility] [id number] [place] [address] 89390- 2294 Jun, Diabetes type 2, controlled E11.9 ; Pain of left foot M79.672 and Pain in right foot M79.671 [facility] [id number] [place] [address] 42301- 4451 May, [facility] [address], [place] [address]- 2872 Apr, [facility] [address] [address]- 3560 Apr, [facility] [address] [address]- 3946 Mar, [facility] [id number], [place] [address]- 7088 Feb, [facility] [address], [place] [address]- 9800 Feb, [facility] [id number] [place] [address] 06812- 7306 Jan, [facility] [id number] [place] [address] 54306- 7511 Dec, Diabetes type 2, controlled E11.9 ; 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 and Abscess, abdomen K65.1 [facility] [id number], [place] [address]- 1472 Dec, Shoulder pain, right 719.41 [facility] [id number] [place] [address] 61073- 4730 November, [facility] [id number] [place] [address] 56398- 6249 November, [facility] [id number] [place] [address] 65315- 7285 Oct, [facility] [id number] [place] [address] 95233- 1198 Sep, [facility] [id number] [place] [address] 15700- 5796 Sep, [facility] [id number] [place] [address] 54051 -4253 Aug, [facility] [id number] [place] [address] 04550- 1519 Aug, [facility] [id number] [place] [address] 92613- 0703 Aug, Cellulitis, unspecified L03.90 ; Cutaneous abscess, unspecified L02.91 ; Diabetes type 2, controlled E11.9 ; Migraine G43.909 and Bilateral low back pain with sciatica, sciatica laterality unspecified M54.40 [facility] [address], [place] [address] -9790 13 Aug, 2015 Abscess and cellulitis L03.90 [facility] [address] [address]- 3176 Aug, [facility] [address] [address]- 5240 Aug, [facility] [id number] [place] [address] 233598- 8898 Jul, [facility] [id number] [place] [address] 252872- 9238 Jul, Diabetes type 2, controlled E11.9 [facility] [id number] [place] [address] 96515- 3050 Jul, Diabetes type 2, controlled E11.9 [facility] [id number] [place] [address] 33419- 6424 Jun, Diabetes type 2, controlled E11.9 ; Bilateral low back pain with sciatica, sciatica laterality unspecified M54.40 and Morbid obesity, unspecified obesity type E66.01 [facility] [id number] [place] [address] 81785- 5780 Jun, [facility] [id number] [place] [address] 59058- 5495 May, [facility] [id number] [place] [address] 475208- 9111 Apr, [facility] [address] 3111 Apr, [facility] [id number] [place] [address] 00413- 9279 Apr, [facility] [id number] [place] [address] 55403- 1289 Mar, [facility] [id number] [place] [address] 44190- 0206 Mar, [facility] [address] [address]- 6656 Mar, [facility] [id number] [place] [address] 75135- 4367 Feb, [facility] [address] [address]- 2333 Feb, [facility] [address] [place] [address]- 7313 Feb, [facility] [address] [address]- 6372 Feb, [facility] [id number] [place] [address] 85926- 9747 Feb, Diabetes mellitus without mention of complication, type II or unspecified type, not stated as uncontrolled 250.00 [facility] [id number] [place] [address] 00620- 5188 Feb, [facility] [id number] [place] [address] 31126- 8541 Feb, [facility] [id number] [place] [address] 21900- 6009 Jan, Diabetes mellitus without mention of complication, type II or unspecified type, not stated as uncontrolled 250.00 and Cellulitis and abscess 682.9 [facility] [address] [address]- 5898 Jan, [facility] [address], [place] [address]- 2263 Jan, [facility] [address], [place] [address]- 6296 Jan, [facility] [address] [place] [address]- 1762 Dec, [facility] [address] [address]- 1756 Dec, [facility] [address], [place] [address]- 7906 Dec, [facility] [address], [place] [address]- 1551 November, [facility] [address] [facility] [id number] [place] [address]- 7548 Oct, Shoulder pain, right 719.41 [facility] [place] [facility] [address] [id number] [place] [address]- 7047 Oct, [facility] [place] [facility] [address] [facility] [id number] [place] [address]- 6625 Oct, [facility] [place] [facility] [address] [id number] [place] [address]- 7425 Sep, [facility] [place] [facility] [address] [id number] [place] [address]- 8237 Sep, [facility] [place] [facility] [address] [facility] [id number] [place] [address]- 0262 Sep, [facility] [address] [place] [address]- 0018 Sep, [facility] [place] [facility] [address] [facility] [id number] [place] [address]- 9976 Sep, [facility] [place] [facility] [id number] [place] [address]- 7446 Sep, [facility] [place] [facility] [address] [facility] [id number] [place] [address]- 3227 Sep, [facility] [place] [facility] [address] [facility] [id number], [place] [address]- 4708 Sep, [facility] [place] [facility] [address] [facility] [id number], [place] [address]- 5852 Aug, [facility] [place] [facility] [address] [facility] [id number] [place] [address]- 3338 Aug, [facility] [place] [facility] [address] [facility] [id number], [place] [address]- 6214 Aug, [facility] [place] [facility] [id number], [place] [address]- 4095 Aug, [facility] [place] [facility] [address] [id number] [place] [address]- 9344 Jul, [facility] [place] [facility] [address] [id number] [place] [address]- 2661 Jul, [facility] [place] [facility] [address] [id number] [place] [address]- 1158 Jul, [facility] [place] [facility] [address] [id number] [place] [address]- 5482 Jul, [facility] [place] [facility] [address] [id number] [place] [address]- 0488 Jul, [facility] [place] [facility] [address] [id number] [place] [address]- 1152 Jul, [facility] [place] [facility] [address] [id number] [place] [address]- 4079 Jun, [facility] [place] [facility] [address] [id number] [place] [address]- 4243 24 Jun, 2014 [facility] [place] [facility] [address] [id number] [place] [address]- 5857 Jun, [facility] [place] [facility] [address] [id number] [place] [address]- 1496 Jun, [facility] [place] [facility] [address] [id number] [place] [address]- 1117 18 Jun, 2014 [facility] [place] [facility] [address] [id number] [place] [address]- 6157 18 Jun, 2014 [facility] [place] [facility] [address] [id number] [place] [address]- 0472 15 Jun, 2014 [facility] [place] [facility] [address] [id number] [place] [address]- 6626 15 Jun, 2014 [facility] [place] [facility] [address] [id number] [place] [address]- 4522 May, [facility] [place] [facility] [address] [id number] [place] [address]- 9396 May, [facility] [place] [facility] [address] [id number] [place] [address]- 3754 May, [facility] [place] [facility] [address] [id number] [place] [address]- 0030 May, [facility] [place] [facility] [address] [id number] [place] [address]- 2427 May, [facility] [place] [facility] [address] [id number] [place] [address]- 0310 May, [facility] [place] [facility] [address] [id number] [place] [address]- 8889 Apr, [facility] [place] [facility] [address] [id number] [place] [address]- 7479 Apr, [facility] [place] [facility] [address] [id number] [place] [address]- 2435 Apr, [facility] [place] [facility] [address] [id number] [place] [address]- 7799 Apr, [facility] [place] [facility] [address] [id number] [place] [address]- 1385 Apr, [facility] [place] [facility] [address] [id number] [place] [address]- 5779 Apr, [facility] [place] [facility] [address] [id number], [place] [address]- 8086 Apr, [facility] [place] [facility] [address] [id number], [place] [address]- 4324 Mar, [facility] [place] [facility] [address] [id number] [place] [address]- 9041 22 Mar, 2014 [facility] [place] [facility] [address] [id number] [place] 9261 Mar, [facility] [place] [facility] [address] [id number] [place] 5107 Mar, [facility] [place] [facility] [address] [id number] [place] [address]- 3050 Feb, [facility] [place] [facility] [address] [id number] [place] [address]- 6885 Feb, [facility] [place] [facility] [address] [id number] [place] [address]- 1019 Feb, [facility] [place] [facility] [address] [id number] [place] [address]- 0460 Feb, [facility] [place] [facility] [address] [id number] [place] [address]- 4404 Feb, [facility] [place] [facility] [address] [id number] [place] [address]- 2512 Feb, [facility] [place] [facility] [address] [id number] [place] [address]- 6888 Jan, [facility] [place] [facility] [address] [id number] [place] [address]- 8292 Jan, [facility] [place] [facility] [address] [id number] [place] [address]- 6301 Jan, [facility] [place] [facility] [address] [id number] [place] [address]- 8731 Jan, [facility] [place] [facility] [address] [id number] [place] [address] Jan, [facility] [place] [facility] [address] [id number] [place] [address] Jan, [facility] [place] [facility] [address] [id number] [place] [address] Jan, [facility] [place] [facility] [address] [id number] [place] [address] Jan, [facility] [place] [facility] [address] [id number] [place] [address] Jan, [facility] [place] [facility] [address] [id number] [place] [address] Jan, [facility] [place] [facility] [address] [id number] [place] [address] Dec, [facility] [place] [facility] [address] [id number] [place] [address] Dec, [facility] [place] [facility] [address] [id number] [place] [address] Dec, [facility] [place] [facility] [address] [id number] [place] [address] Dec, [facility] [place] [facility] [address] [id number] [place] [address] November, [facility] [place] [facility] [address] [id number] [place] [address] November, [facility] [place] [facility] [address] [id number] [place] [address] November, [facility] [place] [facility] [address] [id number] [place] [address] November, [facility] [place] [facility] [address] [id number] [place] [address] Oct, [facility] [place] [facility] [address] [id number] [place] [address] Oct, [facility] [place] [facility] [address] [id number] [place] [address] Oct, [facility] [place] [facility] [address] [id number] [place] [address] Oct, [facility] [place] [facility] [address] [id number] [place] [address]- [address] Oct, [facility] [place] [facility] [address] [id number] [place] [address]- [address] Oct, [facility] [place] [facility] [address] [id number] [place] [address] Oct, [facility] [place] [facility] [address] [id number], [place] [address] Oct, [facility] [place] [facility] [address] [id number] [place] [address] Sep, [facility] [place] [facility] [address] [id number] [place] [address] Sep, [facility] [place] [facility] [address] [facility] [id number] [place] [address] Sep, [facility] [place] [facility] [address] [id number] [place] [address] Sep, [facility] [place] [facility] [address] [id number] [place] [address]- [address] Sep, [facility] [place] [facility] [address] [id number] [place] [address] Sep, [facility] [place] [facility] [address] [facility] [id number] [place] [address] Aug, [facility] [place] [facility] [address] [id number] [place] [address] Aug, [facility] [place] [facility] [address] [id number] [place] [address] Jul, [facility] [place] [facility] [address] [facility] [id number] [place] [address] Jul, [facility] [place] [facility] [address] [id number], [place] [address] Jul, [facility] [place] [facility] [address] [id number], [place] [address] Jul, [facility] [place] [facility] [address] [id number], [place] [address] Jul, [facility] [place] [facility] [address] [id number], [place] [address] Jul, [facility] [place] [facility] [address] [facility] [id number], [place] [address] Jul, [facility] [place] [facility] [address] [id number] [place] [address] Jul, [facility] [place] [facility] [address] [id number] [place] [address] Jun, [facility] [place] [facility] [address] [id number] [place] [address] Jun, [facility] [place] [facility] [address] [id number] [place] [address] May, [facility] [place] [facility] [address] [id number] [place] [address] May, [facility] [place] [facility] [address] [id number] [place] [address] Apr, [facility] [place] [facility] [address] [id number] [place] [address] Apr, [facility] [place] [facility] [address] [id number] [place] [address] Apr, [facility] [place] [facility] [address] [id number] [place] [address] Apr, [facility] [place] [facility] [address] [id number] [place] [address] Apr, [facility] [place] [facility] [address] [id number] [place] [address] Apr, [facility] [place] [facility] [address] [id number] [place] [address] Apr, [facility] [place] [facility] [address] [id number] [place] [address] Apr, [facility] [place] [facility] [address] [id number] [place] [address] Apr, [facility] [place] [facility] [address] [id number] [place] [address] Apr, [facility] [place] [facility] [address] [id number] [place] [address] Apr, [facility] [place] [facility] [address] [id number] [place] [address]- [address] Apr, [facility] [place] [facility] [address] [id number] [place] [address]- [address] Apr, [facility] [place] [facility] [address] [id number] [place] [address] 37[address] Apr, [facility] [place] [facility] [address] [id number] [place] [address]- [address] Apr, [facility] [place] [facility] [address] [id number] [place] [address] 27 Mar, 2013 [facility] [place] [facility] [address] [id number] [place] [address] 6569 27 Mar, 2013 [facility] [place] [facility] [address] [id number] [place] [address] 26 Mar, 2013 [facility] [place] [facility] [address] [id number] [place] [address] 1652 25 Mar, 2013 [facility] [place] [facility] [address] [id number] [place] [address] 16 Mar, 2013 [facility] [place] [facility] [address] [id number], [place] [address] 03 Mar, 2013 [facility] [place] [facility] [address] [id number], [place] [address] Jan, [facility] [place] [facility] [address] [id number], [place] [address] Jan, [facility] [place] [facility] [address] [id number], [place] [address] Jan, [facility] [place] [facility] [address] [id number], [place] [address] Dec, [facility] [place] [facility] [address] [id number], [place] [address] Oct, [facility] [place] [facility] [address] [id number] [place] [address] 16 May, 2012 [facility] [place] [facility] [address] [id number] [place] [address]- [address]86 16 May, 2012 [facility] [place] [facility] [address] [id number] [place] [address]- [address] 05 Jun, 2011 [facility] [place] [facility] [address] [id number] [place] [address] May, [facility] [place] [facility] [address] [id number] [place] [address]- [address] 11 May, 2011 [facility] [place] [facility] [address] [id number] [place] [address]- [address]442 03 May, 2011 [facility] [place] [facility] [address] [id number] [place] [address]- 8780 14 Apr, 2011 [facility] [place] [facility] [address] [id number] [place] [address]- [address] Apr, [facility] [place] [facility] [address] [id number] [place] [address] Feb, [facility] [place] [facility] [address] [id number] [place] [address] Feb, [facility] [place] [facility] [address] [facility] [id number] [place] [address] Dec, [facility] [place] [facility] [address] [id number] [place] [address] Oct, [facility] [place] [facility] [address] [id number] [place] [address] Sep, [facility] [place] [facility] [address] [id number] [place] [address] Sep, [facility] [place] [facility] [address] [id number] [place] [address] Jul, [facility] [place] [facility] [address] [id number] [place] [address] 77[address] Jul, [facility] [place] [facility] [address] [id number] [place] [address]- 3989 28 Jun, 2010 [facility] [place] [facility] [address] [id number] [place] [address]- 9866 23 Jun, 2010 [facility] [place] [facility] [address] [id number] [place] [address]- 9606 14 Jun, 2010 [facility] [place] [facility] [address] [id number] [place] [address]- 4226 14 Jun, 2010 [facility] [place] [facility] [address] [id number] [place] [address] 08 Jun, 2010 [facility] [place] [facility] [address] [id number] [place] [address]- 4085 30 May, 2010 [facility] [place] [facility] [address] [id number] [place] [address]- 8682 May, [facility] [place] [facility] [address] [id number] [place] [address]- 368[address] 17 May, 2010 [facility] [place] [facility] [address] [id number] [place] [address]- 4229 17 May, 2010 [facility] [place] [facility] [address] [id number] [place] [address]- 5580 17 May, 2010 [facility] [place] [facility] [address] [id number] [place] [address]- 4196 17 May, 2010 [facility] [place] [facility] [address] [id number] [place] [address]- 0935 23 Apr, 2010 [facility] [place] [facility] [address] [id number] [place] [address]- 6424 14 Apr, 2010 [facility] [place] [facility] [address] [id number] [place] [address]- 0041 10 Mar, 2010 [facility] [place] [facility] [address] [id number] [place] [address]- [address] 10 Feb, 2010 [facility] [place] [facility] [address] [id number], [place] [address] 17 Sep, 2009 [facility] [address] [id number], [place] [address] Sep, [facility] [address] [id number], [place] [address] Aug, [facility] [address] [id number], [place] [address] 25[address] Jun, [facility] [address] [id number], [place] [address] 25[address] Jun, [facility] [address] [id number], [place] [address] May, [facility] [id number], [place] [address] Dec, [facility] [address] [id number], [place] [address] Sep, IMMUNIZATIONS No Known Immunizations SOCIAL HISTORY Never Assessed REASON FOR VISIT Medication refill/follow up BETHANY Fontaine PLAN OF CARE Activity Details Pending Test Xray : Shoulder, Left 2 view (IN HOUSE) VITAL SIGNS Height 69 in 2018-04-07 Weight 270.9 lbs 2018-04-07 Temperature 98.2 degrees Fahrenheit 2018-04-07 Heart Rate 102 bpm 2018-04-07 Respiratory Rate 20 2018-04-07 BMI 40.00 kg/m2 2018-04-07 Blood pressure systolic 148 mmHg 2018-04-07 Blood pressure diastolic 82 mmHg 2018-04-07 MEDICATIONS Medication Instructions Dosage Frequency Start Date End Date Duration Status Vitamins 0.8 MG Orally Once a day 1 tablet 24h Active Ibuprofen 200 MG Orally every 6 hrs 1 tablet as needed 6h Active Cetirizine HCl 10 mg Orally Once a day 1 tablet 24h Dec, 30 day (s) Active Albuterol Sulfate HFA 108 (90 Base) MCG/ACT Inhalation every 6 hrs 2 puffs as needed 6h 17 Not-Taking Simvastatin 20 mg Orally Once a day 1 tablet in the evening 24h Jul, 30 day(s) Not-Taking PredniSONE 20 mg Orally Once a day 2 tablets 24h Mar, Apr, 5 days Active Tessalon Perles 100 mg Orally Three times a day 1 capsule as needed 8h 10 Active Sklice 0.5 % Externally Once a day as directed 24h Jan, 1 dose Not-Taking Norvasc 10 mg Orally Once a day 1 tablet 24h Dec, 30 day(s) Active Ativan 0.5 MG Orally every 6 hrs 1 tablet as needed 6h 11 Mar, 2017 28 days Active Trintellix 5 MG Orally Once a day 1 tablet 24h Feb, 30 day(s) Active Latham 5-325 MG Orally 4 times a day 1 tablet as needed 6h Mar, 28 days Active Dextroamphetamine Sulfate 10 MG Orally Three times a day 2 tablets 8h 19 Mar, 2018 28 days Active RESULTS No Results PROCEDURES Procedure Date Ordered Result Body Site X-RAY EXAM OF SHOULDER Apr 07, 2018 INSTRUCTIONS MEDICATIONS ADMINISTERED No Known Medications MEDICAL (GENERAL) HISTORY Type Description Date Medical History Type II diabetic Medical History hypertension Medical History MRSA Medical History PCOS Medical History 3 slipped disk in back. Surgical History knee surgery Hospitalization History surgeries Hospitalization History [facility] Pt[facility] unable to walk after waking up from a nap. 12/2015
--- OUTSIDE RECORDS SUMMARY | 2018-06-27 07:22 | XMS REPORT ---
Author Author ARABELLA DIXON Organization [facility] Address [address] [place] [address] Care Team Providers Care Mobile Tester Name Role Phone ARABELLA DIXON Unavailable PROBLEMS Type Condition ICD9-CM Code ODE35-WH Code Onset Dates Condition Status SNOMED Code Problem Lumbago with sciatica, right side M54.41 Active [id number] Problem Diabetes type 2, controlled E11.9 Active 46155797 Problem Other chronic pain G89.29 Active 73772672 Problem High risk medications (not anticoagulants) long-term use Z79.899 Active 522570636 Problem Obstructive sleep apnea syndrome G47.33 Active 17669997 Problem Lumbago with sciatica, left side M54.42 Active 481979240 Problem Bilateral low back pain with sciatica, sciatica laterality unspecified M54.40 Active 77638358 Problem Essential hypertension I10 Active 10615845 Problem Migraine without aura and without status migrainosus, not intractable G43.009 Active 212538691 Problem Morbid obesity due to excess calories E66.01 Active 487885226 Problem Mood disorder F39 Active 71313472 Problem Anxiety F41.9 Active 83241351 ALLERGIES No Information ENCOUNTERS Encounter Location Date Diagnosis [facility] [id number] [place] [address] 97024- 2545 Apr, [facility] [id number] [place] [address] 68648- 4686 Mar, Acute pain of left shoulder M25.512 [facility] [id number] [place] [address] 58678- 3198 Mar, Morbid obesity due to excess calories E66.01 [facility] [id number] [address] 6040 19 Mar, 2018 Diabetes type 2, controlled E11.9 and Bilateral low back pain with sciatica, sciatica laterality unspecified M54.40 [facility] [address] [address] 3703 Feb, Anxiety F41.9 [facility] [id number] [place] [address] 35363- 9403 Feb, Morbid obesity due to excess calories E66.01 [facility] [id number] [place] [address] 73949- 6993 Feb, Bilateral low back pain with sciatica, sciatica laterality unspecified M54.40 and Diabetes type 2, controlled E11.9 [facility] [id number] [place] [address] 58703- 1684 Jan, Morbid obesity due to excess calories E66.01 [facility] [id number] [place] [address] 30522- 7827 Jan, [facility] [id number] [place] [address] 14908- 0976 Jan, Diabetes type 2, controlled E11.9 [facility] [address] [place] [address] 26228- 6946 Jan, Diabetes type 2, controlled E11.9 [facility] [id number] [place] [address] 77300- 2326 Jan, Bilateral low back pain with sciatica, sciatica laterality unspecified M54.40 and Dysfunction of both eustachian tubes H69.83 [facility] [address] [place] [address] 80328- 4078 Jan, Morbid obesity due to excess calories E66.01 [facility] [id number] [place] [address] 35970- 0561 Dec, Diabetes type 2, controlled E11.9 [facility] [address] [place] [address] 39341- 9649 Dec, Morbid obesity due to excess calories E66.01 ; Essential hypertension I10 ; Tobacco abuse Z72.0 and Tobacco abuse counseling Z71.6 [facility] [address] [address]- 4254 November, Diabetes type 2, controlled E11.9 [facility] [address] [place] [address] 27227- 3487 Oct, Diabetes type 2, controlled E11.9 [facility] [id number] [place] [address] 05464- 4643 Sep, Diabetes type 2, controlled E11.9 [facility] [address] [place] [address] 31785- 2772 Sep, [facility] [id number] [place] [address] 11953- 2533 Aug, Diabetes type 2, controlled E11.9 and Morbid obesity due to excess calories E66.01 [facility] [address] [place] [address] 28333- 1974 Jul, Anxiety F41.9 [facility] [id number] [place] [address] 21669- 7420 Jul, [facility] [id number] [place] [address] 08257- 1157 Jul, Anxiety F41.9 ; Mood disorder F39 ; Morbid obesity due to excess calories E66.01 and Diabetes type 2, controlled E11.9 [facility] [address] [address]- 5832 Jun, Anxiety F41.9 [facility] [address] [place] [address] 04904- 4000 Jun, Anxiety F41.9 ; Morbid obesity due to excess calories E66.01 and Diabetes type 2, controlled E11.9 [facility] [address] [address]- 3694 May, Migraine without aura and without status migrainosus, not intractable G43.009 ; Diabetes type 2, controlled E11.9 and Morbid obesity due to excess calories E66.01 [facility] [address] [address]- 4820 Apr, Migraine without aura and without status migrainosus, not intractable G43.009 ; Diabetes type 2, controlled E11.9 and Morbid obesity due to excess calories E66.01 [facility] [id number] [place] [address] 44533- 6928 Apr, Diabetes type 2, controlled E11.9 and Morbid obesity due to excess calories E66.01 [facility] [id number] [place] [address] 63292- 1369 Mar, Diabetes type 2, controlled E11.9 and Morbid obesity due to excess calories E66.01 [facility] [id number] [place] [address] 61542- 5885 Mar, Diabetes type 2, controlled E11.9 and Mood disorder F39 [facility] [id number] [place] [address] 62412- 4873 Feb, Morbid obesity due to excess calories E66.01 and Diabetes type 2, controlled E11.9 [facility] [id number] [place] [address] 25289- 2741 Jan, Diabetes type 2, controlled E11.9 and Morbid obesity due to excess calories E66.01 [facility] [id number] [place] [address] 03775- 2313 Dec, Diabetes type 2, controlled E11.9 and Morbid obesity due to excess calories E66.01 [facility] [address] [place] [address] 25845- 1780 Dec, Morbid obesity due to excess calories E66.01 [facility] [id number] [place] [address] 13791- 9123 November, Diabetes type 2, controlled E11.9 and Morbid obesity due to excess calories E66.01 [facility] [address] [place] [address] 57475- 0489 19 May, 2017 Anxiety F41.9 and Injury of right foot, initial encounter S99.921A [facility] [address] [place] [address] 90060- 8562 November, Diabetes type 2, controlled E11.9 and Morbid obesity due to excess calories E66.01 [facility] [id number] [place] [address] 22670- 2472 November, [facility] [id number] [place] [address] 17565- 9336 Oct, Family history of brain aneurysm Z82.49 and Migraine without aura and without status migrainosus, not intractable G43.009 [facility] [id number] [place] [address] 88710- 7900 Oct, Diabetes type 2, controlled E11.9 [facility] [id number] [place] [address] 49351- 1276 Oct, Morbid obesity due to excess calories E66.01 ; Family history of brain aneurysm Z82.49 and Migraine without aura and without status migrainosus, not intractable G43.009 [facility] [address] [place] [address] 47463- 3294 Oct, Diabetes type 2, controlled E11.9 and Morbid obesity due to excess calories E66.01 [facility] [address] [place] [address] 79850- 4275 Sep, [facility] [id number] [place] [address] 54255- 3693 Sep, Diabetes type 2, controlled E11.9 [facility] [address] [place] [address] 69448- 5481 Sep, Morbid obesity due to excess calories E66.01 [facility] [id number] [place] [address] 89917- 9041 Aug, Exposure to hepatitis C Z20.5 [facility] [id number] [place] [address] 62139- 9738 Aug, Diabetes type 2, controlled E11.9 [facility] [address] [address]- 7929 Jul, Exposure to hepatitis C Z20.5 [facility] [address] [facility] [id number] [address]- 2556 Jul, Exposure to hepatitis C Z20.5 [facility] [address] [place] [address] 52073- 8902 Jul, [facility] [address] [facility] [id number] [address]- 1260 Jul, Diabetes type 2, controlled E11.9 [facility] [id number] [place] [address] 47911- 6480 Jun, [facility] [id number] [place] [address] 97180- 7046 Jun, Diabetes type 2, controlled E11.9 ; Pain of left foot M79.672 and Pain in right foot M79.671 [facility] [address] [address]- 9795 May, [facility] [id number] [address]- 9511 Apr, [facility] [address] [address]- 3724 Apr, [facility] [id number] [address]- 4059 Mar, [facility] [id number] [address]- 7562 Feb, [facility] [id number] [address]- 8827 Feb, [facility] [id number] 8253 Jan, [facility] [address] [place] [address] 92176- 1001 Dec, Diabetes type 2, controlled E11.9 ; 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 and Abscess, abdomen K65.1 [facility] [id number] [place] [address] 06821- 8275 Dec, Shoulder pain, right 719.41 [facility] [id number] [place] [address] 26383- 9531 November, [facility] [id number] [place] [address] 41724- 9549 November, [facility] [id number] [place] [address] 88874- 4346 Oct, [facility] [id number] [place] [address] 63595- 4903 Sep, [facility] [id number] [place] [address] 14169- 9448 Sep, [facility] [id number] [place] [address] 64115 -0157 Aug, [facility] [id number] [place] [address] 62184- 4992 Aug, [facility] [id number] [place] [address] 49640- 3709 Aug, Cellulitis, unspecified L03.90 ; Cutaneous abscess, unspecified L02.91 ; Diabetes type 2, controlled E11.9 ; Migraine G43.909 and Bilateral low back pain with sciatica, sciatica laterality unspecified M54.40 [facility] [id number] [place] [address] 50909 -2639 Aug, Abscess and cellulitis L03.90 [facility] [id number] [place] [address] 07202- 7558 Aug, [facility] [id number] [place] [address] 52339- 7068 Aug, [facility] [address] [address]- 4258 Jul, [facility] [id number] [place] [address] 391522- 7226 Jul, Diabetes type 2, controlled E11.9 [facility] [address] [place] [address]- 4516 Jul, Diabetes type 2, controlled E11.9 [facility] [address] [place] [address] 015218- 8718 Jun, Diabetes type 2, controlled E11.9 ; Bilateral low back pain with sciatica, sciatica laterality unspecified M54.40 and Morbid obesity, unspecified obesity type E66.01 [facility] [address] 6316 Jun, [facility] [id number] [place] [address] 51812- 4869 May, [facility] [address] [place] [address] 232138- 8818 Apr, [facility] [id number] [place] [address] 129796- 5724 Apr, [facility] [address] [address]- 4826 Apr, [facility] [id number] [address]- 3546 Mar, [facility] [address] [address]- 9485 Mar, [facility] [id number] [place] [address] 85430- 8866 Mar, [facility] [address] [address]- 5606 Feb, [facility] [id number] [place] [address] 49901- 3014 Feb, [facility] [id number] 4408 Feb, [facility] [address] [facility] [place] [id number] 7746 Feb, [facility] [address] 2269 Feb, Diabetes mellitus without mention of complication, type II or unspecified type, not stated as uncontrolled 250.00 [facility] [address] [facility] [place] [id number] 8575 Feb, [facility] [address] [place] [address] 179489- 4537 Feb, [facility] [address] [address]- 3328 Jan, Diabetes mellitus without mention of complication, type II or unspecified type, not stated as uncontrolled 250.00 and Cellulitis and abscess 682.9 [facility] [address] [address]- 4046 Jan, [facility] [address] [address]- 6615 Jan, [facility] [address] [address]- 5853 Jan, [facility] [address] [address]- 5894 Dec, [facility] [id number] [address]- 5317 Dec, [facility] [address] [address]- 9007 Dec, [facility] [id number] [address]- 3586 November, [facility] [id number] [address]- 0494 Oct, Shoulder pain, right 719.41 [facility] [place] [facility] [address] [id number] [place] [address]- 9637 Oct, [facility] [place] [facility] [address] [id number] [place] [address]- 5588 Oct, [facility] [place] [facility] [address] [facility] [place] [id number] [place] [address]- 0212 Sep, [facility] [place] [facility] [address] [id number] [place] [address]- 0106 Sep, [facility] [place] [facility] [address] [id number] [place] [address]- 3726 Sep, [facility] [place] [facility] [address] [facility] [place] [id number] [place] [address]- 5590 Sep, [facility] [id number] [place] [address]- 9605 Sep, [facility] [place] [facility] [address] [facility] [place] [id number] [place] [address]- 9428 Sep, [facility] [place] [facility] [address] [facility] [place] [id number] [place] [address]- 0998 Sep, [facility] [place] [facility] [address] [facility] [place] [id number] [address]- 6686 Sep, [facility] [place] [facility] [address] [facility] [place] [id number] [address]- 6567 Aug, [facility] [place] [facility] [address] [facility] [place] [id number] [address]- 2719 Aug, [facility] [place] [facility] [address] [id number] [address]- 5829 Aug, [facility] [place] [facility] [address] [facility] [place] [id number] [address]- 7116 Aug, [facility] [place] [facility] [address] [facility] [place] [id number] [address]- 1153 Jul, [facility] [place] [facility] [address] [id number] [place] [address]- 5008 Jul, [facility] [place] [facility] [address] [id number] [place] [address]- 6062 Jul, [facility] [place] [facility] [address] [id number] [place] [address]- 9350 Jul, [facility] [place] [facility] [address] [id number] [place] [address]- 0051 Jul, [facility] [place] [facility] [address] [id number] [place] [address]- 8639 Jul, [facility] [place] [facility] [address] [id number] [place] [address]- 3842 Jun, [facility] [place] [facility] [address] [id number] [place] [address]- 4070 Jun, [facility] [place] [facility] [address] [id number] [place] [address]- 1164 Jun, [facility] [place] [facility] [address] [id number] [place] [address]- 4880 Jun, [facility] [place] [facility] [address] [id number] [place] [address]- 6255 Jun, [facility] [place] [facility] [address] [id number] [place] [address]- 9772 18 Jun, 2014 [facility] [place] [facility] [address] [id number] [place] [address]- 8947 15 Jun, 2014 [facility] [place] [facility] [address] [id number] [place] [address]- 0200 Jun, [facility] [place] [facility] [address] [id number] [place] [address]- 7409 May, [facility] [place] [facility] [address] [id number] [place] [address]- 4543 May, [facility] [place] [facility] [address] [id number] [place] [address]- 3490 May, [facility] [place] [facility] [address] [id number] [place] [address]- 8068 May, [facility] [place] [facility] [address] [id number] [place] [address]- 5130 May, [facility] [place] [facility] [address] [id number] [place] [address]- 1123 May, [facility] [place] [facility] [address] [id number] [place] [address]- 1475 Apr, [facility] [place] [facility] [address] [id number] [place] [address]- 6532 Apr, [facility] [place] [facility] [address] [id number] [place] [address]- 9559 Apr, [facility] [place] [facility] [address] [id number] [place] [address]- 6508 Apr, [facility] [place] [facility] [address] [id number] [place] [address]- 0677 Apr, [facility] [place] [facility] [address] [id number] [place] [address]- 9402 Apr, [facility] [place] [facility] [address] [id number] [place] [address]- 6758 Apr, [facility] [place] [facility] [address] [id number] [place] [address]- 9792 Mar, [facility] [place] [facility] [address] [id number] [address]- 1220 Mar, [facility] [place] [facility] [address] [id number] [place] [address]- 1173 Mar, [facility] [place] [facility] [address] [id number] [place] [address]- 4183 Mar, [facility] [place] [facility] [address] [id number] [place] [address]- 8132 Feb, [facility] [place] [facility] [address] [id number] [place] [address]- 9851 Feb, [facility] [place] [facility] [address] [id number] [place] [address]- 3475 Feb, [facility] [place] [facility] [address] [id number] [place] [address]- 5330 Feb, [facility] [place] [facility] [address] [id number] [place] [address]- 7473 Feb, [facility] [place] [facility] [address] [id number] [place] [address]- 3128 Feb, [facility] [place] [facility] [address] [id number] [place] [address]- 1163 Jan, [facility] [place] [facility] [address] [id number] [place] [address]- 6241 Jan, [facility] [place] [facility] [address] [id number] [place] [address] Jan, [facility] [place] [facility] [address] [id number] [place] [address] Jan, [facility] [place] [facility] [address] [id number] [place] [address] Jan, [facility] [place] [facility] [address] [id number] [place] [address] Jan, [facility] [place] [facility] [address] [id number] [place] [address] Jan, [facility] [place] [facility] [address] [id number] [place] [address] Jan, [facility] [place] [facility] [address] [id number] [place] [address] Jan, [facility] [place] [facility] [address] [id number] [place] [address] Jan, [facility] [place] [facility] [address] [id number] [place] [address] Dec, [facility] [place] [facility] [address] [id number] [place] [address] Dec, [facility] [place] [facility] [address] [id number] [place] [address] Dec, [facility] [place] [facility] [address] [id number] [place] [address] Dec, [facility] [place] [facility] [address] [id number] [place] [address] November, [facility] [place] [facility] [address] [id number] [place] [address] November, [facility] [place] [facility] [address] [id number] [place] [address] November, [facility] [place] [facility] [address] [id number] [place] [address] November, [facility] [place] [facility] [address] [id number] [place] [address] Oct, [facility] [place] [facility] [address] [id number] [place] [address] Oct, [facility] [place] [facility] [address] [id number] [place] [address] Oct, [facility] [place] [facility] [address] [id number] [place] [address] Oct, [facility] [place] [facility] [address] [id number] [place] [address] Oct, [facility] [place] [facility] [address] [id number] [place] [address] Oct, [facility] [place] [facility] [address] [id number] [place] [address] Oct, [facility] [place] [facility] [address] [id number] [place] [address] Oct, [facility] [place] [facility] [address] [id number] [address] Sep, [facility] [place] [facility] [address] [id number] [place] [address] Sep, [facility] [place] [facility] [address] [id number] [place] [address] Sep, [facility] [place] [facility] [address] [id number] [place] [address] Sep, [facility] [place] [facility] [address] [id number] [place] [address] Sep, [facility] [place] [facility] [address] [id number] [place] [address] Sep, [facility] [place] [facility] [address] [id number] [place] [address] Aug, [facility] [place] [facility] [address] [id number] [place] [address] Aug, [facility] [place] [facility] [address] [id number] [place] [address] Jul, [facility] [place] [facility] [address] [id number] [place] [address] Jul, [facility] [place] [facility] [address] [id number] [place] [address] Jul, [facility] [place] [facility] [address] [id number] [place] [address] Jul, [facility] [place] [facility] [address] [id number] [place] [address] Jul, [facility] [place] [facility] [address] [id number] [place] [address] Jul, [facility] [place] [facility] [address] [id number] [place] [address] Jul, [facility] [facility] [address] [id number] [place] [address] Jul, [facility] [place] [facility] [address] [id number] [place] [address] Jun, [facility] [place] [facility] [address] [id number] [place] [address] Jun, [facility] [place] [facility] [address] [id number] [place] [address] May, [facility] [place] [facility] [address] [id number] [place] [address] May, [facility] [place] [facility] [address] [id number] [place] [address] Apr, [facility] [place] [facility] [address] [id number] [place] [address] Apr, [facility] [place] [facility] [address] [id number] [place] [address] Apr, [facility] [place] [facility] [address] [id number] [place] [address] Apr, [facility] [place] [facility] [address] [id number] [place] [address] Apr, [facility] [place] [facility] [address] [id number] [place] [address] Apr, [facility] [place] [facility] [address] [id number] [place] [address] Apr, [facility] [place] [facility] [address] [id number] [place] [address] Apr, [facility] [place] [facility] [address] [id number] [place] [address] Apr, [facility] [place] [facility] [address] [id number] [place] [address] Apr, [facility] [place] [facility] [address] [id number] [place] [address] Apr, [facility] [place] [facility] [address] [id number] [place] [address] 39[address] Apr, [facility] [place] [facility] [address] [id number] [place] [address] 18 Apr, 2013 [facility] [place] [facility] [address] [id number] [place] [address] 18 Apr, 2013 [facility] [place] [facility] [address] [id number] [place] [address] Apr, [facility] [place] [facility] [address] [id number] [place] [address] 27 Mar, 2013 [facility] [place] [facility] [address] [id number] [place] [address] 27 Mar, 2013 [facility] [address] [id number] [place] [address] 26 Mar, 2013 [facility] [facility] [address] [id number] [place] [address] 25 Mar, 2013 [facility] [place] [facility] [address] [id number] [place] [address] 16 Mar, 2013 [facility] [place] [facility] [address] [id number] [place] [address] 03 Mar, 2013 [facility] [place] [facility] [address] [id number] [place] [address] 31 Jan, 2013 [facility] [facility] [address] [id number] [place] [address] 16 Jan, 2013 [facility] [address] [id number] [place] [address] Jan, [facility] [place] [facility] [address] [id number] [place] [address] Dec, [facility] [place] [facility] [address] [id number] [place] [address] Oct, [facility] [address] [id number] [address] 16 May, 2012 [facility] [address] [id number] [place] [address] 16 May, 2012 [facility] [address] [id number] [place] [address] 05 Jun, 2011 [facility] [address] [id number] [place] [address] May, [facility] [address] [id number] [place] [address] May, [facility] [address] [id number] [place] [address] 03 May, 2011 [facility] [address] [id number] [place] [address]- [address] 14 Apr, 2011 [facility] [address] [id number] [place] [address]- [address] 13 Apr, 2011 [facility] [address] [id number] [place] [address] 17 Feb, 2011 [facility] [address] [id number] [place] [address] 16 Feb, 2011 [facility] [address] [id number] [place] [address] Dec, [facility] [address] [facility] [place] [id number] [place] [address] 12 Oct, 2010 [facility] [address] [id number] [place] [address]- [address] 19 Sep, 2010 [facility] [address] [id number] [place] [address]- 9401 10 Sep, 2010 [facility] [address] [id number] [place] [address] 20 Jul, 2010 [facility] [address] [id number] [place] [address] 8778 11 Jul, 2010 [facility] [address] [id number] [place] [address] Jun, [facility] [address] [id number] [place] [address]- [address] Jun, [facility] [address] [id number] [place] [address] Jun, [facility] [address] [id number] [place] [address]- 2764 Jun, [facility] [address] [id number] [place] [address]- [address]686 Jun, [facility] [address] [id number] [place] [address]- [address] 30 May, 2010 [facility] [address] [id number] [place] [address] May, [facility] [address] [id number] [place] [address]- [address] May, [facility] [address] [id number] [place] [address] 1682 May, [facility] [address] [id number] [place] [address] 8434 May, [facility] [address] [id number] [place] [address]- 2436 May, [facility] [address] [id number] [place] [address] Apr, [facility] [address] [id number] [place] [address] 14 Apr, 2010 [facility] [address] [id number] [place] [address] 47[address] Mar, [facility] [address] [id number] [place] [address]- 7294 Feb, [facility] [address] [id number] [place] [address]- 6367 17 Sep, 2009 [facility] [address] [id number] [place] [address] Sep, [facility] [address] [facility] [place] [id number] [place] [address] Aug, [facility] [address] [facility] [place] [id number] [place] [address]- [address] Jun, [facility] [address] [facility] [place] [id number] [place] [address]- [address] Jun, [facility] [address] [facility] [place] [id number] [place] [address]- [address] May, [facility] [address] [facility] [place] [id number] [place] [address]- [address] Dec, [facility] [address] [facility] [place] [id number] [place] [address]- [address] Sep, IMMUNIZATIONS No Known Immunizations SOCIAL HISTORY Never Assessed REASON FOR VISIT Controlled Med Refill PLAN OF CARE VITAL SIGNS MEDICATIONS Medication Instructions Dosage Frequency Start Date End Date Duration Status Dextroamphetamine Sulfate 10 MG Orally Three times a day 2 tablets 8h Mar, 28 days Active Ativan 0.5 MG Orally [...]
--- OUTSIDE RECORDS SUMMARY | 2018-06-27 07:22 | XMS REPORT ---
Author Author ARABELLA DIXON Organization [facility] Address [address] [place] [address] Care Team Providers Care Command Post Craftsman Name Role Phone ARABELLA DIXON Unavailable PROBLEMS Type Condition ICD9-CM Code DFL62-TR Code Onset Dates Condition Status SNOMED Code Problem Lumbago with sciatica, right side M54.41 Active 323610379113631 Problem Diabetes type 2, controlled E11.9 Active 06408114 Problem Other chronic pain G89.29 Active 12586848 Problem High risk medications (not anticoagulants) long-term use Z79.899 Active 016423289 Problem Obstructive sleep apnea syndrome G47.33 Active 81940523 Problem Lumbago with sciatica, left side M54.42 Active 206751870 Problem Bilateral low back pain with sciatica, sciatica laterality unspecified M54.40 Active 96613233 Problem Essential hypertension I10 Active 49895337 Problem Migraine without aura and without status migrainosus, not intractable G43.009 Active 598854837 Problem Morbid obesity due to excess calories E66.01 Active 720470214 Problem Mood disorder F39 Active 25859734 Problem Anxiety F41.9 Active 73063096 ALLERGIES Substance Reaction Event Type Date Status Wellbutrin Unknown Drug Allergy Feb, Active Effexor increases depression -JCriserRN Drug Allergy Feb, Active ENCOUNTERS Encounter Location Date Diagnosis [facility] [id number] [address] Apr, [facility] [id number] [place] [address] 24971- 9570 Mar, Acute pain of left shoulder M25.512 [facility] [address] [id number] [address] 0320 Mar, Morbid obesity due to excess calories E66.01 [facility] [address] [address] 8256 Mar, Diabetes type 2, controlled E11.9 and Bilateral low back pain with sciatica, sciatica laterality unspecified M54.40 [facility] [id number] [place] [address] 74852- 5095 Feb, Anxiety F41.9 [facility] [id number] [place] [address] 65948- 2973 Feb, Morbid obesity due to excess calories E66.01 [facility] [id number] [place] [address] 07171- 3356 Feb, Bilateral low back pain with sciatica, sciatica laterality unspecified M54.40 and Diabetes type 2, controlled E11.9 [facility] [id number] [place] [address] 62471- 6001 Jan, Morbid obesity due to excess calories E66.01 [facility] [id number] [place] [address] 05268- 6955 Jan, [facility] [id number] [place] [address] 89103- 2846 Jan, Diabetes type 2, controlled E11.9 [facility] [id number] [place] [address] 29942- 3975 Jan, Diabetes type 2, controlled E11.9 [facility] [id number] [place] [address] 66482- 1535 Jan, Bilateral low back pain with sciatica, sciatica laterality unspecified M54.40 and Dysfunction of both eustachian tubes H69.83 [facility] [address] [address] 5813 Jan, Morbid obesity due to excess calories E66.01 [facility] [id number] [place] [address] 23369- 3025 Dec, Diabetes type 2, controlled E11.9 [facility] [id number] [place] [address] 41399- 0925 Dec, Morbid obesity due to excess calories E66.01 ; Essential hypertension I10 ; Tobacco abuse Z72.0 and Tobacco abuse counseling Z71.6 [facility] [id number] [place] [address] 64767- 9612 November, Diabetes type 2, controlled E11.9 [facility] [id number] [place] [address] 27451- 3228 Oct, Diabetes type 2, controlled E11.9 [facility] [id number] [place] [address] 93251- 7320 Sep, Diabetes type 2, controlled E11.9 [facility] [id number] [place] [address] 66383- 8293 Sep, [facility] [id number] [place] [address] 49557- 3759 Aug, Diabetes type 2, controlled E11.9 and Morbid obesity due to excess calories E66.01 [facility] [id number] [place] [address] 28991- 3732 Jul, Anxiety F41.9 [facility] [id number] [place] [address] 91292- 7378 Jul, [facility] [id number] [place] [address] 22774- 0671 Jul, Anxiety F41.9 ; Mood disorder F39 ; Morbid obesity due to excess calories E66.01 and Diabetes type 2, controlled E11.9 [facility] [address] [address]- 8783 Jun, Anxiety F41.9 [facility] [id number] [place] [address] 39865- 5205 Jun, Anxiety F41.9 ; Morbid obesity due to excess calories E66.01 and Diabetes type 2, controlled E11.9 [facility] [id number] [place] [address] 08672- 3020 May, Migraine without aura and without status migrainosus, not intractable G43.009 ; Diabetes type 2, controlled E11.9 and Morbid obesity due to excess calories E66.01 [facility] [id number] [place] [address] 26473- 9094 Apr, Migraine without aura and without status migrainosus, not intractable G43.009 ; Diabetes type 2, controlled E11.9 and Morbid obesity due to excess calories E66.01 [facility] [id number] [place] [address] 20824- 3663 Apr, Diabetes type 2, controlled E11.9 and Morbid obesity due to excess calories E66.01 [facility] [id number] [place] [address] 00643- 8466 Mar, Diabetes type 2, controlled E11.9 and Morbid obesity due to excess calories E66.01 [facility] [id number] [place] [address] 24010- 2588 Mar, Diabetes type 2, controlled E11.9 and Mood disorder F39 [facility] [id number] [place] [address] 19683- 5228 Feb, Morbid obesity due to excess calories E66.01 and Diabetes type 2, controlled E11.9 [facility] [id number] [place] [address] 32936- 6238 Jan, Diabetes type 2, controlled E11.9 and Morbid obesity due to excess calories E66.01 [facility] [id number] [place] [address] 92372- 4098 Dec, Diabetes type 2, controlled E11.9 and Morbid obesity due to excess calories E66.01 [facility] [id number] [place] [address] 41336- 4052 Dec, Morbid obesity due to excess calories E66.01 [facility] [id number] [place] [address] 22831- 2371 November, Diabetes type 2, controlled E11.9 and Morbid obesity due to excess calories E66.01 [facility] [address] [place] [address] 24002- 0559 November, Anxiety F41.9 and Injury of right foot, initial encounter S99.921A [facility] [id number] [place] [address] 80520- 8116 November, Diabetes type 2, controlled E11.9 and Morbid obesity due to excess calories E66.01 [facility] [id number] [place] [address] 95032- 9264 November, [facility] [id number] [place] [address] 34050- 0735 Oct, Family history of brain aneurysm Z82.49 and Migraine without aura and without status migrainosus, not intractable G43.009 [facility] [id number] [place] [address] 68529- 6732 Oct, Diabetes type 2, controlled E11.9 [facility] [id number] [place] [address] 18825- 6045 Oct, Morbid obesity due to excess calories E66.01 ; Family history of brain aneurysm Z82.49 and Migraine without aura and without status migrainosus, not intractable G43.009 [facility] [id number] [place] [address] 53776- 8406 Oct, Diabetes type 2, controlled E11.9 and Morbid obesity due to excess calories E66.01 [facility] [address] [place] [address] 18509- 2879 Sep, [facility] [id number] [place] [address] 41817- 3721 Sep, Diabetes type 2, controlled E11.9 [facility] [id number] [place] [address] 32970- 1192 Sep, Morbid obesity due to excess calories E66.01 [facility] [id number] [place] [address] 17585- 7473 Aug, Exposure to hepatitis C Z20.5 [facility] [address] [address]- 7679 Aug, Diabetes type 2, controlled E11.9 [facility] [id number] [place] [address] 814356- 6872 Jul, Exposure to hepatitis C Z20.5 [facility] [address] [place] [address] 21915- 5737 Jul, Exposure to hepatitis C Z20.5 [facility] [id number] [place] [address] 19362- 4492 Jul, [facility] [id number] [place] [address] 55172- 4649 Jul, Diabetes type 2, controlled E11.9 [facility] [id number] [place] [address] 79462- 3991 Jun, [facility] [id number] [place] [address] 26319- 1087 Jun, Diabetes type 2, controlled E11.9 ; Pain of left foot M79.672 and Pain in right foot M79.671 [facility] [id number] [place] [address] 85636- 0801 May, [facility] [address] [address]- 0699 Apr, [facility] [address] [address]- 6483 Apr, [facility] [address] [address]- 2244 Mar, [facility] [id number] [address]- 2601 Feb, [facility] [address] [address]- 5278 Feb, [facility] [id number] [place] [address] 85404- 0991 Jan, [facility] [id number] [place] [address] 04972- 1234 Dec, Diabetes type 2, controlled E11.9 ; 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 and Abscess, abdomen K65.1 [facility] [id number] [address]- 6746 Dec, Shoulder pain, right 719.41 [facility] [id number] [place] [address] 81760- 3602 November, [facility] [id number] [place] [address] 55343- 3141 November, [facility] [id number] [place] [address] 78731- 5149 Oct, [facility] [id number] [place] [address] 33604- 8661 Sep, [facility] [id number] [place] [address] 32093- 5405 Sep, [facility] [id number] [place] [address] 49641 -7135 Aug, [facility] [id number] [place] [address] 33037- 1957 Aug, [facility] [id number] [place] [address] 18168- 0367 Aug, Cellulitis, unspecified L03.90 ; Cutaneous abscess, unspecified L02.91 ; Diabetes type 2, controlled E11.9 ; Migraine G43.909 and Bilateral low back pain with sciatica, sciatica laterality unspecified M54.40 [facility] [address] [address] -1231 13 Aug, 2015 Abscess and cellulitis L03.90 [facility] [address] [address]- 7702 Aug, [facility] [address] [address]- 8221 Aug, [facility] [id number] [place] [address] 224750- 9543 Jul, [facility] [id number] [place] [address] 648180- 7318 Jul, Diabetes type 2, controlled E11.9 [facility] [id number] [place] [address] 78374- 9359 Jul, Diabetes type 2, controlled E11.9 [facility] [id number] [place] [address] 72070- 4289 Jun, Diabetes type 2, controlled E11.9 ; Bilateral low back pain with sciatica, sciatica laterality unspecified M54.40 and Morbid obesity, unspecified obesity type E66.01 [facility] [id number] [place] [address] 13887- 0911 Jun, [facility] [id number] [place] [address] 22170- 8955 May, [facility] [id number] [place] [address] 878190- 0947 Apr, [facility] [address] 9424 Apr, [facility] [id number] [place] [address] 18059- 5929 Apr, [facility] [id number] [place] [address] 90188- 9369 Mar, [facility] [id number] [place] [address] 35853- 8726 Mar, [facility] [address] [address]- 8466 Mar, [facility] [id number] [place] [address] 24953- 3329 Feb, [facility] [address] [address]- 7090 Feb, [facility] [address] [address]- 5288 Feb, [facility] [address] [address]- 1180 Feb, [facility] [id number] [place] [address] 13943- 7591 Feb, Diabetes mellitus without mention of complication, type II or unspecified type, not stated as uncontrolled 250.00 [facility] [id number] [place] [address] 65853- 6596 Feb, [facility] [id number] [place] [address] 56668- 4739 Feb, [facility] [id number] [place] [address] 68809- 4413 Jan, Diabetes mellitus without mention of complication, type II or unspecified type, not stated as uncontrolled 250.00 and Cellulitis and abscess 682.9 [facility] [address] [address]- 6313 Jan, [facility] [address] [address]- 6482 Jan, [facility] [address] [address]- 8256 Jan, [facility] [address] [address]- 9965 Dec, [facility] [address] [address]- 6616 Dec, [facility] [address] [address]- 0656 Dec, [facility] [address] [address]- 5949 November, [facility] [address] [facility] [id number] [place] [address]- 1761 Oct, Shoulder pain, right 719.41 [facility] [place] [facility] [address] [id number] [place] [address]- 7572 Oct, [facility] [place] [facility] [address] [facility] [id number] [place] [address]- 6695 Oct, [facility] [place] [facility] [address] [id number] [place] [address]- 2404 Sep, [facility] [place] [facility] [address] [id number] [place] [address]- 7107 Sep, [facility] [place] [facility] [address] [facility] [id number] [place] [address]- 1784 Sep, [facility] [id number] [place] [address]- 5296 Sep, [facility] [place] [facility] [address] [facility] [id number] [place] [address]- 1693 Sep, [facility] [place] [facility] [id number] [place] [address]- 2689 Sep, [facility] [place] [facility] [address] [facility] [id number] [place] [address]- 4761 Sep, [facility] [place] [facility] [address] [facility] [id number] [address]- 1840 Sep, [facility] [place] [facility] [address] [facility] [id number] [place] [address]- 1408 Aug, [facility] [place] [facility] [address] [facility] [id number] [place] [address]- 0028 Aug, [facility] [place] [facility] [address] [facility] [id number] [place] [address]- 5992 Aug, [facility] [place] [facility] [id number] [address]- 5270 Aug, [facility] [place] [facility] [address] [id number] [place] [address]- 7881 Jul, [facility] [place] [facility] [address] [id number] [place] [address]- 8181 Jul, [facility] [place] [facility] [address] [id number] [place] [address]- 7506 Jul, [facility] [place] [facility] [address] [id number] [place] [address]- 5564 Jul, [facility] [place] [facility] [address] [id number] [place] [address]- 3715 Jul, [facility] [place] [facility] [address] [id number] [place] [address]- 5395 Jul, [facility] [place] [facility] [address] [id number] [place] [address]- 9004 Jun, [facility] [place] [facility] [address] [id number] [place] [address]- 0248 24 Jun, 2014 [facility] [place] [facility] [address] [id number] [place] [address]- 5457 Jun, [facility] [place] [facility] [address] [id number] [place] [address]- 8458 Jun, [facility] [place] [facility] [address] [id number] [place] [address]- 7622 18 Jun, 2014 [facility] [place] [facility] [address] [id number] [place] [address]- 3153 18 Jun, 2014 [facility] [place] [facility] [address] [id number] [place] [address]- 7722 15 Jun, 2014 [facility] [place] [facility] [address] [id number] [place] [address]- 9074 15 Jun, 2014 [facility] [place] [facility] [address] [id number] [place] [address]- 6624 May, [facility] [place] [facility] [address] [id number] [place] [address]- 8592 May, [facility] [place] [facility] [address] [id number] [place] [address]- 7902 May, [facility] [place] [facility] [address] [id number] [place] [address]- 6865 May, [facility] [place] [facility] [address] [id number] [place] [address]- 5076 May, [facility] [place] [facility] [address] [id number] [place] [address]- 6594 May, [facility] [place] [facility] [address] [id number] [place] [address]- 8930 Apr, [facility] [place] [facility] [address] [id number] [place] [address]- 2819 Apr, [facility] [place] [facility] [address] [id number] [place] [address]- 9521 Apr, [facility] [place] [facility] [address] [id number] [place] [address]- 6316 Apr, [facility] [place] [facility] [address] [id number] [place] [address]- 3498 Apr, [facility] [place] [facility] [address] [id number] [place] [address]- 2048 Apr, [facility] [place] [facility] [address] [id number] [place] [address]- 9586 Apr, [facility] [place] [facility] [address] [id number] [place] [address]- 1473 Mar, [facility] [place] [facility] [address] [id number] [place] [address]- 2685 22 Mar, 2014 [facility] [place] [facility] [address] [id number] [place] 6793 Mar, [facility] [place] [facility] [address] [id number] [place] 4977 Mar, [facility] [place] [facility] [address] [id number] [place] [address]- 8180 Feb, [facility] [place] [facility] [address] [id number] [place] [address]- 0402 Feb, [facility] [place] [facility] [address] [id number] [place] [address]- 3846 Feb, [facility] [place] [facility] [address] [id number] [place] [address]- 8440 Feb, [facility] [place] [facility] [address] [id number] [place] [address]- 2011 Feb, [facility] [place] [facility] [address] [id number] [place] [address]- 6654 Feb, [facility] [place] [facility] [address] [id number] [place] [address]- 9154 Jan, [facility] [place] [facility] [address] [id number] [place] [address]- 9695 Jan, [facility] [place] [facility] [address] [id number] [place] [address]- 7555 Jan, [facility] [place] [facility] [address] [id number] [place] [address]- 0784 Jan, [facility] [place] [facility] [address] [id number] [place] [address]- 8008 Jan, [facility] [place] [facility] [address] [id number] [place] [address]- 1613 Jan, [facility] [place] [facility] [address] [id number] [place] [address]- 3311 Jan, [facility] [place] [facility] [address] [id number] [place] [address]- 7098 Jan, [facility] [place] [facility] [address] [id number] [place] [address]- 7405 Jan, [facility] [place] [facility] [address] [id number] [place] [address]- 7260 Jan, [facility] [place] [facility] [address] [id number] [place] [address] Dec, [facility] [place] [facility] [address] [id number] [place] [address] Dec, [facility] [place] [facility] [address] [id number] [place] [address] Dec, [facility] [place] [facility] [address] [id number] [place] [address] Dec, [facility] [place] [facility] [address] [id number] [place] [address] November, [facility] [place] [facility] [address] [id number] [place] [address] November, [facility] [place] [facility] [address] [id number] [place] [address] November, [facility] [place] [facility] [address] [id number] [place] [address] November, [facility] [place] [facility] [address] [id number] [place] [address] Oct, [facility] [place] [facility] [address] [id number] [place] [address] Oct, [facility] [place] [facility] [address] [id number] [place] [address] Oct, [facility] [place] [facility] [address] [id number] [place] [address] Oct, [facility] [place] [facility] [address] [id number] [place] [address] Oct, [facility] [place] [facility] [address] [id number] [place] [address] Oct, [facility] [place] [facility] [address] [id number] [place] [address] Oct, [facility] [place] [facility] [address] [id number] [place] [address] Oct, [facility] [place] [facility] [address] [id number] [place] [address] Sep, [facility] [place] [facility] [address] [id number] [place] [address] Sep, [facility] [place] [facility] [address] [facility] [id number] [place] [address] Sep, [facility] [place] [facility] [address] [id number] [place] [address] Sep, [facility] [place] [facility] [address] [id number] [place] [address] Sep, [facility] [place] [facility] [address] [id number] [place] [address] Sep, [facility] [place] [facility] [address] [facility] [id number] [place] [address] Aug, [facility] [place] [facility] [address] [id number] [place] [address] Aug, [facility] [place] [facility] [address] [id number] [place] [address] Jul, [facility] [place] [facility] [address] [facility] [id number] [place] [address] Jul, [facility] [place] [facility] [address] [id number] [place] [address] Jul, [facility] [place] [facility] [address] [id number] [place] [address] Jul, [facility] [place] [facility] [address] [id number] [place] [address] Jul, [facility] [place] [facility] [address] [id number] [place] [address] Jul, [facility] [place] [facility] [address] [facility] [id number] [place] [address] Jul, [facility] [place] [facility] [address] [id number] [place] [address] Jul, [facility] [place] [facility] [address] [id number] [place] [address] [address] Jun, [facility] [place] [facility] [address] [id number] [place] [address] Jun, [facility] [place] [facility] [address] [id number] [place] [address] May, [facility] [place] [facility] [address] [id number] [place] [address] May, [facility] [place] [facility] [address] [id number] [place] [address] Apr, [facility] [place] [facility] [address] [id number] [place] [address] Apr, [facility] [place] [facility] [address] [id number] [place] [address] Apr, [facility] [place] [facility] [address] [id number] [place] [address] Apr, [facility] [place] [facility] [address] [id number] [place] [address] Apr, [facility] [place] [facility] [address] [id number] [place] [address] Apr, [facility] [place] [facility] [address] [id number] [place] [address] Apr, [facility] [place] [facility] [address] [id number] [place] [address] Apr, [facility] [place] [facility] [address] [id number] [place] [address] Apr, [facility] [place] [facility] [address] [id number] [place] [address] Apr, [facility] [place] [facility] [address] [id number] [place] [address] Apr, [facility] [place] [facility] [address] [id number] [place] [address] Apr, [facility] [place] [facility] [address] [id number] [place] [address] Apr, [facility] [place] [facility] [address] [id number] [place] [address] Apr, [facility] [place] [facility] [address] [id number] [place] [address] Apr, [facility] [place] [facility] [address] [id number] [place] [address] 27 Mar, 2013 [facility] [place] [facility] [address] [id number] [place] [address] 27 Mar, 2013 [facility] [place] [facility] [address] [id number] [place] [address] 26 Mar, 2013 [facility] [place] [facility] [address] [id number] [place] [address] 25 Mar, 2013 [facility] [place] [facility] [address] [id number] [place] [address] 16 Mar, 2013 [facility] [place] [facility] [address] [id number] [place] [address] 03 Mar, 2013 [facility] [place] [facility] [address] [id number] [place] [address] Jan, [facility] [place] [facility] [address] [id number] [place] [address] Jan, [facility] [place] [facility] [address] [id number] [place] [address] Jan, [facility] [place] [facility] [address] [id number] [place] [address] Dec, [facility] [place] [facility] [address] [id number] [place] [address] Oct, [facility] [place] [facility] [address] [id number] [place] [address] 8569 16 May, 2012 [facility] [place] [facility] [address] [id number] [place] [address]- [address] 16 May, 2012 [facility] [place] [facility] [address] [id number] [place] [address]- [address]178 05 Jun, 2011 [facility] [place] [facility] [address] [id number] [place] [address] May, [facility] [place] [facility] [address] [id number] [place] [address] 1018 11 May, 2011 [facility] [place] [facility] [address] [id number] [place] [address]69 03 May, 2011 [facility] [place] [facility] [address] [id number] [place] [address]- [address]76 14 Apr, 2011 [facility] [place] [facility] [address] [id number] [place] [address] 18[address] Apr, [facility] [place] [facility] [address] [id number] [place] [address] Feb, [facility] [place] [facility] [address] [id number] [place] [address] Feb, [facility] [place] [facility] [address] [facility] [id number] [place] [address] Dec, [facility] [place] [facility] [address] [id number] [place] [address]78 Oct, [facility] [place] [facility] [address] [id number] [place] [address] Sep, [facility] [place] [facility] [address] [id number] [place] [address] Sep, [facility] [place] [facility] [address] [id number] [place] [address] Jul, [facility] [place] [facility] [address] [id number] [place] [address] 9369 Jul, [facility] [place] [facility] [address] [id number] [place] [address] 3977 28 Jun, 2010 [facility] [place] [facility] [address] [id number] [place] [address]- [address] 23 Jun, 2010 [facility] [place] [facility] [address] [id number] [place] [address]- [address]096 14 Jun, 2010 [facility] [place] [facility] [address] [id number] [place] [address]- 0716 14 Jun, 2010 [facility] [place] [facility] [address] [id number] [place] [address]- [address]376 08 Jun, 2010 [facility] [place] [facility] [address] [id number] [place] [address]- 7880 30 May, 2010 [facility] [place] [facility] [address] [id number] [place] [address] 98[address] May, [facility] [place] [facility] [address] [id number] [place] [address]- 4633 17 May, 2010 [facility] [place] [facility] [address] [id number] [place] [address]- 5516 17 May, 2010 [facility] [place] [facility] [address] [id number] [place] [address]- 4471 17 May, 2010 [facility] [place] [facility] [address] [id number] [place] [address] 3265 17 May, 2010 [facility] [place] [facility] [address] [id number] [place] [address] 9278 23 Apr, 2010 [facility] [place] [facility] [address] [id number] [place] [address] 2789 14 Apr, 2010 [facility] [place] [facility] [address] [id number] [place] [address]- 7955 10 Mar, 2010 [facility] [place] [facility] [address] [id number] [place] [address]- 5224 10 Feb, 2010 [facility] [place] [facility] [address] [id number] [place] [address]46 17 Sep, 2009 [facility] [address] [facility] [id number] [place] [address] Sep, [facility] [address] [id number] [place] [id number] Aug, [facility] [address] [id number] [place] [address] Jun, [facility] [address] [id number] [place] [address] Jun, [facility] [address] [id number] [place] [address] May, [facility] [address] [id number] [place] [address] Dec, [facility] [address] [id number] [place] [address] Sep, IMMUNIZATIONS No Known Immunizations SOCIAL HISTORY Never Assessed REASON FOR VISIT PT reports no concerns -Armen SIMS PLAN OF CARE VITAL SIGNS Height 69 in 2018-03-10 Weight 268.7 lbs 2018-03-10 Temperature 98.7 degrees Fahrenheit 2018-03-10 Heart Rate 114 bpm 2018-03-10 Respiratory Rate 20 2018-03-10 Oximetry 98 % 2018-03-10 BMI 39.68 kg/m2 2018-03-10 Blood pressure systolic 140 mmHg 2018-03-10 Blood pressure diastolic 90 mmHg 2018-03-10 MEDICATIONS Medication Instructions Dosage Frequency Start Date End Date Duration Status Trintellix 5 MG Orally Once a day 1 tablet 24h Feb, 30 day(s) Active [place] 5-325 MG Orally 4 times a day 1 tablet as needed 6h Feb, 28 days Active Simvastatin 20 mg Orally Once a day 1 tablet in the evening 24h Jul, 30 day(s) Not-Taking Dextroamphetamine Sulfate 10 MG Orally Three times a day 2 tablets 8h Feb, 28 days Active Vitamins 0.8 MG Orally Once a day 1 tablet 24h Active Ativan 0.5 MG Orally every 6 hrs 1 tablet as needed 6h 11 Mar, 2017 28 days Active Ibuprofen 200 MG Orally every 6 hrs 1 tablet as needed 6h Active Sklice 0.5 % Externally Once a day as directed 24h 17 Jan, 2018 1 dose Active Albuterol Sulfate HFA 108 (90 Base) MCG/ACT Inhalation every 6 hrs 2 puffs as needed 6h 17 Active Cetirizine HCl 10 mg Orally Once a day 1 tablet 24h Dec, 30 day (s) Active Tessalon Perles 100 mg Orally Three times a day 1 capsule as needed 8h 10 Active Norvasc 10 mg Orally Once a day 1 tablet 24h Dec, 30 day(s) Active RESULTS No Results PROCEDURES No Known [...]
--- OUTSIDE RECORDS SUMMARY | 2018-06-27 07:23 | XMS REPORT ---
Author Author ARABELLA DIXON Organization [facility] Address [address] [place] [address] Care Team Providers Care Draw Tender Name Role Phone ARABELLA DIXON Unavailable PROBLEMS Type Condition ICD9-CM Code SNP21-JP Code Onset Dates Condition Status SNOMED Code Problem Lumbago with sciatica, right side M54.41 Active [id number] Problem Diabetes type 2, controlled E11.9 Active 88499298 Problem Other chronic pain G89.29 Active 99431733 Problem High risk medications (not anticoagulants) long-term use Z79.899 Active 137227430 Problem Obstructive sleep apnea syndrome G47.33 Active 73870872 Problem Lumbago with sciatica, left side M54.42 Active 578125251 Problem Bilateral low back pain with sciatica, sciatica laterality unspecified M54.40 Active 98761078 Problem Essential hypertension I10 Active 21558904 Problem Migraine without aura and without status migrainosus, not intractable G43.009 Active 352582757 Problem Morbid obesity due to excess calories E66.01 Active 081677949 Problem Mood disorder F39 Active 01363147 Problem Anxiety F41.9 Active 38160934 ALLERGIES No Information ENCOUNTERS Encounter Location Date Diagnosis [place] [id number] [address] Mar, [facility] [address] [place] [address] 05078- 5644 Mar, Diabetes type 2, controlled E11.9 and Bilateral low back pain with sciatica, sciatica laterality unspecified M54.40 [facility] [id number] [place] [address] 99185- 6277 Feb, Anxiety F41.9 [facility] [address] [place] [address] 05414- 0507 Feb, Morbid obesity due to excess calories E66.01 [place] [address] [place] [address] 74509- 9560 Feb, Bilateral low back pain with sciatica, sciatica laterality unspecified M54.40 and Diabetes type 2, controlled E11.9 [place] [address] [place] [address] [place] [address] 32453- 6229 Jan, Morbid obesity due to excess calories E66.01 [place] [address] [place] [address] [place] [address] 02001- 9374 Jan, [place] [address] [place] [address] [place] [address] 99480- 2003 Jan, Diabetes type 2, controlled E11.9 [place] [address] [place] [address] [place] [address] 52992- 6939 Jan, Diabetes type 2, controlled E11.9 [place] [address] [place] [address] [place] [address] 56311- 5410 Jan, Bilateral low back pain with sciatica, sciatica laterality unspecified M54.40 and Dysfunction of both eustachian tubes H69.83 [place] [address] [place] [address] [place] [address] 85861- 7236 Jan, Morbid obesity due to excess calories E66.01 [place] [address] [place] [address] [place] [address] 38166- 0564 Dec, Diabetes type 2, controlled E11.9 [place] [address] [place] [address] [place] [address] 79031- 0271 Dec, Morbid obesity due to excess calories E66.01 ; Essential hypertension I10 ; Tobacco abuse Z72.0 and Tobacco abuse counseling Z71.6 [place] [address] [place] [address] [place] [address] 73732- 7162 November, Diabetes type 2, controlled E11.9 [place] [address] [place] [address] [place] [address] 49868- 8845 Oct, Diabetes type 2, controlled E11.9 [facility] [address] [address] 0914 Sep, Diabetes type 2, controlled E11.9 [facility] [address] [place] [address] 94348- 3140 Sep, [facility] [address] [place] [address] 89146- 2425 Aug, Diabetes type 2, controlled E11.9 and Morbid obesity due to excess calories E66.01 [facility] [address] [place] [address] 81496- 7768 Jul, Anxiety F41.9 [facility] [address] [place] [place] [address] 37616- 4742 Jul, [facility] [address] [place] [address] 88731- 9714 Jul, Anxiety F41.9 ; Mood disorder F39 ; Morbid obesity due to excess calories E66.01 and Diabetes type 2, controlled E11.9 [facility] [address], [place] [address]- 4473 Jun, Anxiety F41.9 [facility] [address] [place] [address] 01100- 2012 Jun, Anxiety F41.9 ; Morbid obesity due to excess calories E66.01 and Diabetes type 2, controlled E11.9 [facility] [address] [place] [address] 50982- 7086 May, Migraine without aura and without status migrainosus, not intractable G43.009 ; Diabetes type 2, controlled E11.9 and Morbid obesity due to excess calories E66.01 [facility] [address] [place] [address] 06747- 4887 Apr, Migraine without aura and without status migrainosus, not intractable G43.009 ; Diabetes type 2, controlled E11.9 and Morbid obesity due to excess calories E66.01 [facility] [address] [address]- 0735 Apr, Diabetes type 2, controlled E11.9 and Morbid obesity due to excess calories E66.01 [facility] [address] [address] [place] [address] 40430- 1667 Mar, Diabetes type 2, controlled E11.9 and Morbid obesity due to excess calories E66.01 [facility] [address] [place] [address] [place] [address] 46980- 1633 Mar, Diabetes type 2, controlled E11.9 and Mood disorder F39 [place] [address] [place] [address] [place] [address] 97647- 8134 Feb, Morbid obesity due to excess calories E66.01 and Diabetes type 2, controlled E11.9 [place] [address] [place] [address] [place] [address] 08432- 8835 Jan, Diabetes type 2, controlled E11.9 and Morbid obesity due to excess calories E66.01 [place] [address] [place] [address] [place] [address] 16214- 8106 Dec, Diabetes type 2, controlled E11.9 and Morbid obesity due to excess calories E66.01 [place] [address] [place] [address] [place] [address] 03774- 4485 Dec, Morbid obesity due to excess calories E66.01 [place] [address] [place] [address] 64982- 5979 November, Diabetes type 2, controlled E11.9 and Morbid obesity due to excess calories E66.01 [place] [address] [place] [address] [place] [address] 14556- 6222 November, Anxiety F41.9 and Injury of right foot, initial encounter S99.921A [place] [address] [place] [address] [place] [address] 91526- 6827 November, Diabetes type 2, controlled E11.9 and Morbid obesity due to excess calories E66.01 [place] [address] [place] [address] [place] [address] 11610- 6438 November, [facility] [address] [place] [address] 90673- 2168 Oct, Family history of brain aneurysm Z82.49 and Migraine without aura and without status migrainosus, not intractable G43.009 [facility] [address] [place] [address] 01314- 2546 Oct, Diabetes type 2, controlled E11.9 [facility] [address] [address] [place] [address] 71663- 1427 Oct, Morbid obesity due to excess calories E66.01 ; Family history of brain aneurysm Z82.49 and Migraine without aura and without status migrainosus, not intractable G43.009 [facility] [address] [place] [address] 55753- 1204 Oct, Diabetes type 2, controlled E11.9 and Morbid obesity due to excess calories E66.01 [facility] [address] [place] [address] 69804- 7164 Sep, [facility] [address] [place] [address] 44292- 1296 Sep, Diabetes type 2, controlled E11.9 [facility] [address] [place] [address] 22838- 2200 Sep, Morbid obesity due to excess calories E66.01 [facility] [address] [place] [address] 02780- 2872 Aug, Exposure to hepatitis C Z20.5 [facility] [address] [place] [address] 53146- 0093 Aug, Diabetes type 2, controlled E11.9 [facility] [address] [place] [address] [place] [address] 98880- 0428 Jul, Exposure to hepatitis C Z20.5 [facility] [address] [place] [address] [place] [address] 54059- 1909 Jul, Exposure to hepatitis C Z20.5 [facility] [address] [address]- 6408 Jul, [facility] [address] [place] [address] 22911- 6003 Jul, Diabetes type 2, controlled E11.9 [facility] [address] [place] [address] 63477- 7078 Jun, [facility] [address] [place] [address] 92696- 3904 Jun, Diabetes type 2, controlled E11.9 ; Pain of left foot M79.672 and Pain in right foot M79.671 [facility] [address] [address]- 4033 May, [facility] [address] [place] [address] 72487- 5957 Apr, [facility] [address] [address]- 5663 Apr, [facility] [address] [place] [address] 31467- 9557 Mar, [facility] [address], [place] [address]- 7724 Feb, [facility] [address], [place] [address]- 1144 Feb, [facility] [address] [address]- 6811 Jan, [facility] [address] [place] [address] 47228- 2216 Dec, Diabetes type 2, controlled E11.9 ; 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 and Abscess, abdomen K65.1 [facility] [address] [address]- 9020 Dec, Shoulder pain, right 719.41 [facility] [address], [place] [address]- 8925 November, [facility] [address] [place] [address] 38792- 5614 November, [facility] [address] [address]- 5080 Oct, [facility] [address] [place] [address] 25437- 8690 Sep, [facility] [address] [place] [address] 82420- 2191 Sep, [facility] [address] [place] [address] 70549 -8683 Aug, [facility] [address] [place] [address] 03988- 1101 Aug, [facility] [address] [place] [address] 15045- 1116 Aug, Cellulitis, unspecified L03.90 ; Cutaneous abscess, unspecified L02.91 ; Diabetes type 2, controlled E11.9 ; Migraine G43.909 and Bilateral low back pain with sciatica, sciatica laterality unspecified M54.40 [facility] [address] [address] -4437 Aug, Abscess and cellulitis L03.90 [facility] [address], [place] [address]- 3691 Aug, [facility] [address] [address]- 7353 Aug, [facility] [address] [address]- 4772 Jul, [facility] [address] [address]- 6664 Jul, Diabetes type 2, controlled E11.9 [facility] [address] [address]- 3629 Jul, Diabetes type 2, controlled E11.9 [facility] [address] [place] [address] 629177- 0541 Jun, Diabetes type 2, controlled E11.9 ; Bilateral low back pain with sciatica, sciatica laterality unspecified M54.40 and Morbid obesity, unspecified obesity type E66.01 [facility] [address] [place] [address] 66056- 7257 Jun, [facility] [address] [place] [address] 56401- 0163 May, [facility] [address] [place] [address] 61411- 5405 Apr, [facility] [address] [place] [address] 63483- 1245 Apr, [facility] [address] [place] [address] 42013- 2238 Apr, [facility] [address] [place] [address] 53207- 1834 Mar, [facility] [address] [place] [address] 77294- 1210 Mar, [facility] [address] [address]- 5738 Mar, [facility] [address] [address]- 2551 Feb, [facility] [address], [place] [address]- 9972 Feb, [facility] [address] [place] [address] 240194- 1307 Feb, [facility] [address] 0734 Feb, [facility] [address] [address]- 1075 Feb, Diabetes mellitus without mention of complication, type II or unspecified type, not stated as uncontrolled 250.00 [facility] [address] [place] [address] 63935- 9256 Feb, [facility] [address] [place] [address] 80343- 0431 Feb, [facility] [address] [place] [address] 53528- 8840 Jan, Diabetes mellitus without mention of complication, type II or unspecified type, not stated as uncontrolled 250.00 and Cellulitis and abscess 682.9 [facility] [address] [place] [address] 27441- 0404 Jan, [facility] [address] [place] [address] 60765- 8531 Jan, [facility] [address] [place] [address] 25413- 6898 Jan, [facility] [address] [place] [address] 91161- 1685 Dec, [facility] [address] [place] [address] 09327- 3103 Dec, [facility] [address] [place] [address] 63783- 2116 Dec, [facility] [address] [place] [address] 27042- 4800 November, [facility] [address] [place] [address] 12736- 6365 Oct, Shoulder pain, right 719.41 [facility] [address] [place] [address] 27089- 5449 Oct, [facility] [address] [place] [address] 79640- 5053 Oct, [facility] [place] [facility] [address] [id number] [place] [address]- 0310 Sep, [facility] [place] [facility] [address] [id number] [place] [address]- 1684 Sep, [facility] [place] [facility] [address] [id number] [place] [address]- 6685 Sep, [facility] [place] [facility] [address] [id number] [place] [address]- 3588 Sep, [facility] [place] [facility] [address] [id number] [place] [address]- 6865 Sep, [facility] [place] [facility] [address] [id number] [place] [address]- 7423 Sep, [facility] [place] [facility] [address] [id number] [place] [address]- 5936 Sep, [facility] [place] [facility] [address] [id number] [place] [address]- 8275 Sep, [facility] [place] [facility] [address] [id number] [place] [address]- 1976 Aug, [facility] [place] [facility] [address] [id number] [place] [address]- 6530 Aug, [facility] [place] [facility] [address] [id number] [place] [address]- 1755 Aug, [facility] [place] [facility] [address] [id number] [place] [address]- 4209 Aug, [facility] [place] [facility] [address] [id number] [place] [address]- 9138 Jul, [facility] [place] [facility] [address] [id number] [place] [address]- 2383 Jul, [facility] [place] [facility] [address] [id number] [place] [address]- 3238 Jul, [facility] [place] [facility] [address] [id number] [place] [address]- 0836 14 Jul, 2014 [facility] [place] [facility] [address] [id number] [place] [address]- 8394 Jul, [facility] [place] [facility] [address] [id number] [place] [address]- 9757 Jul, [facility] [place] [facility] [address] [id number] [place] [address]- 4675 Jun, [facility] [place] [facility] [address] [id number] [place] [address]- 0844 Jun, [facility] [place] [facility] [address] [id number] [place] [address]- 3398 Jun, [facility] [place] [facility] [address] [id number] [place] [address]- 1748 Jun, [facility] [place] [facility] [address] [id number] [place] [address]- 3342 Jun, [facility] [place] [facility] [address] [id number] [place] [address]- 0741 18 Jun, 2014 [facility] [place] [facility] [address] [id number] [place] [address]- 4063 Jun, [facility] [place] [facility] [address] [id number] [place] [address]- 5297 Jun, [facility] [place] [facility] [address] [id number] [place] [address]- 8655 May, [facility] [place] [facility] [address] [id number] [address]- 9236 May, [facility] [place] [facility] [address] [id number] [place] [address]- 6903 May, [facility] [place] [facility] [address] [id number] [place] [address]- 4765 May, [facility] [place] [facility] [address] [id number] [place] [address]- 5108 17 May, 2014 [facility] [place] [facility] [address] [id number] [place] [address]- 4164 May, [facility] [place] [facility] [address] [id number] [place] [address]- 5514 Apr, [facility] [place] [facility] [address] [id number] [place] [address]- 1955 Apr, [facility] [place] [facility] [address] [id number] [place] 5076 Apr, [facility] [place] [facility] [address] [id number] [place] [address]- 4437 Apr, [facility] [place] [facility] [address] [id number] [place] [address]- 5209 Apr, [facility] [place] [facility] [address] [id number] [place] [address]- 6780 Apr, [facility] [place] [facility] [address] [id number] [place] [address]- 8588 Apr, [facility] [place] [facility] [address] [id number] [place] [address]- 6756 Mar, [facility] [place] [facility] [address] [id number] [place] [address]- 8600 Mar, [facility] [place] [facility] [address] [id number] [place] [address]- 2494 Mar, [facility] [place] [facility] [address] [id number] [place] [address]- 2541 Mar, [facility] [place] [facility] [address] [id number] [place] [address]- 6814 Feb, [facility] [place] [facility] [address] [id number] [place] [address]- 0582 Feb, [facility] [place] [facility] [address] [id number] [place] [address]- 1156 Feb, [facility] [place] [facility] [address] [id number] [place] [address]- 5533 Feb, [facility] [place] [facility] [address] [id number] [place] [address]- 8186 Feb, [facility] [place] [facility] [address] [id number] [place] [address]- 1249 Feb, [facility] [place] [facility] [address] [id number] [place] [address]- 5542 Jan, [facility] [place] [facility] [address] [id number] [place] [address]- 7790 Jan, [facility] [place] [facility] [address] [id number] [place] [address]- 0765 Jan, [facility] [place] [facility] [address] [id number] [place] [address]- 0279 Jan, [facility] [place] [facility] [address] [id number] [place] [address]- 5335 Jan, [facility] [place] [facility] [address] [id number] [place] [address]- 9809 Jan, [facility] [place] [facility] [address] [id number] [place] [address]- 7773 Jan, [facility] [place] [facility] [address] [id number] [place] [address]- 7896 Jan, [facility] [place] [facility] [address] [id number] [place] [address]- 2352 Jan, [facility] [place] [facility] [address] [id number] [place] [address]- 5690 Jan, [facility] [place] [facility] [address] [id number] [place] [address]- 5008 Dec, [facility] [place] [facility] [address] [id number] [place] [address]- 0966 Dec, [facility] [place] [facility] [address] [id number] [place] [address]- 8416 Dec, [facility] [place] [facility] [address] [id number] [place] [address]- 0617 Dec, [facility] [place] [facility] [address] [id number] [place] [address] November, [facility] [place] [facility] [address] [id number] [place] [address] November, [facility] [place] [facility] [address] [id number] [place] [address] November, [facility] [place] [facility] [address] [id number] [place] [address] November, [facility] [place] [facility] [address] [id number] [place] [address] Oct, [facility] [place] [facility] [address] [id number] [place] [address] Oct, [facility] [place] [facility] [address] [id number] [place] [address] Oct, [facility] [place] [facility] [address] [id number] [place] [address] Oct, [facility] [place] [facility] [address] [id number] [place] [address] Oct, [facility] [place] [facility] [address] [id number] [place] [address] Oct, [facility] [place] [facility] [address] [id number] [place] [address] Oct, [facility] [place] [facility] [address] [id number] [place] [address] Oct, [facility] [place] [facility] [address] [id number] [place] [address] Sep, [facility] [place] [facility] [address] [id number] [place] [address] Sep, [facility] [place] [facility] [address] [id number] [place] [address] Sep, [facility] [place] [facility] [address] [id number] [place] [address] Sep, [facility] [place] [facility] [address] [id number] [place] [address] Sep, [facility] [place] [facility] [address] [id number] [place] [address] Sep, [facility] [place] [facility] [address] [id number] [place] [address] Aug, [facility] [place] [facility] [address] [id number] [place] [address] Aug, [facility] [place] [facility] [address] [id number] [place] [address] Jul, [facility] [place] [facility] [address] [id number] [place] [address] Jul, [facility] [place] [facility] [address] [id number] [place] [address] Jul, [facility] [place] [facility] [address] [id number] [place] [address] Jul, [facility] [place] [facility] [address] [id number] [place] [address] Jul, [facility] [place] [facility] [address] [id number] [place] [address] Jul, [facility] [place] [facility] [address] [id number] [place] [address] Jul, [facility] [place] [facility] [address] [id number] [place] [address] Jul, [facility] [place] [facility] [address] [id number] [place] [address] Jun, [facility] [place] [facility] [address] [id number] [place] [address] Jun, [facility] [place] [facility] [address] [id number] [place] [address] May, [facility] [place] [facility] [address] [id number] [place] [address] May, [facility] [place] [facility] [address] [id number] [place] [address] Apr, [facility] [place] [facility] [address] [id number] [place] [address] Apr, [facility] [place] [facility] [address] [id number], [place] [address] 2010 Apr, [facility] [place] [facility] [address] [id number] [place] [address] Apr, [facility] [place] [facility] [address] [id number] [place] [address] Apr, [facility] [place] [facility] [address] [id number] [place] [address] Apr, [facility] [place] [facility] [address] [id number], [place] [address] Apr, [facility] [place] [facility] [address] [id number], [place] [address] Apr, [facility] [place] [facility] [address] [id number], [place] [address] Apr, [facility] [place] [facility] [address] [id number], [place] [address] Apr, [facility] [place] [facility] [address] [id number], [place] [address] Apr, [facility] [place] [facility] [address] [id number], [place] [address] Apr, [facility] [place] [facility] [address] [id number], [place] [address] Apr, [facility] [place] [facility] [address] [id number], [place] [address] Apr, [facility] [place] [facility] [address] [id number] [place] [address] 02 Apr, 2013 [facility] [address] [id number] [place] [address] 27 Mar, 2012 [facility] [place] [facility] [address] [id number] [place] [address] 2546 27 Mar, 2012 [facility] [address] [id number] [place] [address] 2543 26 Mar, 2012 [facility] [place] [facility] [address] [id number] [place] [address] 2548 25 Mar, 2012 [facility] [address] [id number] [place] [address] 16 Mar, 2013 [facility] [place] [facility] [address] [id number] [place] [address] Mar, [facility] [address] [id number] [place] [address] 31 Jan, 2013 [facility] [address] [id number] [place] [address] Jan, [facility] [place] [facility] [address] [id number] [place] [address] Jan, [facility] [address] [id number] [place] [address] Dec, [facility] [place] [facility] [address] [id number] [place] [address] Oct, [facility] [place] [facility] [address] [id number] [place] [address] May, [facility] [place] [facility] [address] [id number] [place] [address] May, [facility] [place] [facility] [address] [id number] [place] [address] 05 Jun, 2011 [facility] [place] [facility] [address] [id number] [place] [address] May, [facility] [place] [facility] [address] [id number] [place] [address]39 11 May, 2011 [facility] [place] [facility] [address] [id number] [place] [address] 03 May, 2011 [facility] [place] [facility] [address] [id number] [place] [address]- [address]78 14 Apr, 2011 [facility] [place] [facility] [address] [id number] [place] [address]- [address]81 13 Apr, 2011 [facility] [place] [facility] [address] [id number] [place] [address] 17 Feb, 2011 [facility] [place] [facility] [address] [id number] [place] [address]- [address] 16 Feb, 2011 [facility] [place] [facility] [address] [id number] [place] [address] Dec, [facility] [place] [facility] [address] [id number] [place] [address] Oct, [facility] [place] [facility] [address] [id number] [place] [address] Sep, [facility] [place] [facility] [address] [id number] [place] [address] Sep, [facility] [place] [facility] [address] [id number] [place] [address] 18[address] Jul, [facility] [place] [facility] [address] [id number] [place] [address] 47[address] Jul, [facility] [place] [facility] [address] [id number] [place] [address] Jun, [facility] [place] [facility] [address] [id number] [place] [address]- [address] 23 Jun, 2010 [facility] [place] [facility] [address] [id number] [place] [address]- 2009 14 Jun, 2010 [facility] [place] [facility] [address] [id number], [place] [address] 14 Jun, 2010 [facility] [place] [facility] [address] [id number] [place] [address]- [address] 08 Jun, 2010 [facility] [place] [facility] [address] [id number] [place] [address]- [address] 30 May, 2010 [facility] [place] [facility] [address] [id number] [place] [address] May, [facility] [place] [facility] [address] [id number] [place] [address] May, [facility] [place] [facility] [address] [id number] [place] [address]- [address] May, [facility] [place] [facility] [address] [id number] [place] [address] May, [facility] [place] [facility] [address] [id number] [place] [address] 3946 May, [facility] [place] [facility] [address] [id number] [place] [address]- [address]118 Apr, [facility] [place] [facility] [address] [id number] [place] [address]- [address]118 14 Apr, 2010 [facility] [place] [facility] [address] [id number] [place] [address]- [address] Mar, [facility] [place] [facility] [address] [id number], [place] [address] Feb, [facility] [place] [facility] [address] [id number] [place] [address]- [address] Sep, [facility] [place] [facility] [address] [id number] [place] [address]- 9[address] Sep, [facility] [place] [facility] [address] [id number] [place] [address]- [address] 18 Aug, 2009 [facility] [place] [facility] [address] [id number] [place] [address]- [address]597 Jun, [facility] [place] [facility] [address] [facility] [id number] [place] [address]- [address] Jun, [facility] [address] [facility] [id number], [place] [address] May, [facility] [address] [facility] [id number], [place] [address]- [address] Dec, [facility] [address] [facility] [id number], [place] [address] Sep, IMMUNIZATIONS No Known Immunizations SOCIAL HISTORY Never Assessed REASON FOR VISIT BP Reduction Challenge Enroll PLAN OF CARE VITAL SIGNS MEDICATIONS Medication Instructions Dosage Frequency Start Date End Date Duration Status Ativan 0.5 MG Orally every 6 hrs 1 tablet as needed 6h 11 Mar, 2017 28 days Active Dextroamphetamine Sulfate 10 MG Orally Three times a day 2 tablets 8h Feb, 28 days Active RESULTS No Results PROCEDURES [...]
--- OUTSIDE RECORDS SUMMARY | 2018-06-27 07:23 | XMS REPORT ---
Author Author ARABELLA DIXON Organization [facility] Address [address] [place] [address] Care Team Providers Care Ship'S Master Name Role Phone ARABELLA DIXON Unavailable PROBLEMS Type Condition ICD9-CM Code XFU21-LE Code Onset Dates Condition Status SNOMED Code Problem Lumbago with sciatica, right side M54.41 Active 538527798079912 Problem Diabetes type 2, controlled E11.9 Active 62281562 Problem Other chronic pain G89.29 Active 82154894 Problem High risk medications (not anticoagulants) long-term use Z79.899 Active 000827347 Problem Obstructive sleep apnea syndrome G47.33 Active 01767019 Problem Lumbago with sciatica, left side M54.42 Active 379228532 Problem Bilateral low back pain with sciatica, sciatica laterality unspecified M54.40 Active 78345317 Problem Essential hypertension I10 Active 19742826 Problem Migraine without aura and without status migrainosus, not intractable G43.009 Active 886443066 Problem Morbid obesity due to excess calories E66.01 Active 466133212 Problem Mood disorder F39 Active 67125982 Problem Anxiety F41.9 Active 10898964 ALLERGIES No Information ENCOUNTERS Encounter Location Date Diagnosis [facility] [id number] [address] Mar, [facility] [id number] [place] [address] 48892- 1362 Mar, Morbid obesity due to excess calories E66.01 [facility] [id number] [place] [address] 64769- 7907 Mar, Diabetes type 2, controlled E11.9 and Bilateral low back pain with sciatica, sciatica laterality unspecified M54.40 [facility] [id number] [place] [address] 34636- 2123 Feb, Anxiety F41.9 [place] [address] [address] 5589 Feb, Morbid obesity due to excess calories E66.01 [place] [id number] [place] [address] 73204- 8037 Feb, Bilateral low back pain with sciatica, sciatica laterality unspecified M54.40 and Diabetes type 2, controlled E11.9 [place] [id number] [place] [address] 01014- 2189 Jan, Morbid obesity due to excess calories E66.01 [place] [id number] [place] [address] 03143- 6114 Jan, [place] [id number] [place] [address] 59068- 7332 Jan, Diabetes type 2, controlled E11.9 [place] [id number] [place] [address] 32655- 0114 Jan, Diabetes type 2, controlled E11.9 [place] [id number] [place] [address] 32723- 2097 Jan, Bilateral low back pain with sciatica, sciatica laterality unspecified M54.40 and Dysfunction of both eustachian tubes H69.83 [place] [id number] [place] [address] 90356- 4495 Jan, Morbid obesity due to excess calories E66.01 [place] [id number] [place] [address] 50094- 4915 Dec, Diabetes type 2, controlled E11.9 [place] [id number] [place] [address] 65111- 3119 Dec, Morbid obesity due to excess calories E66.01 ; Essential hypertension I10 ; Tobacco abuse Z72.0 and Tobacco abuse counseling Z71.6 [place] [id number] [place] [address] 25443- 7472 November, Diabetes type 2, controlled E11.9 [facility] [address] [address]- 7074 Oct, Diabetes type 2, controlled E11.9 [facility] [id number] [place] [address] 10233- 1118 Sep, Diabetes type 2, controlled E11.9 [facility] [id number] [place] [address] 63508- 0051 Sep, [facility] [id number] [place] [address] 49329- 4426 Aug, Diabetes type 2, controlled E11.9 and Morbid obesity due to excess calories E66.01 [place] [id number] [place] [address] 29607- 8270 Jul, Anxiety F41.9 [place] [id number] [place] [address] 85333- 4059 Jul, [facility] [id number] [place] [address] 48028- 6958 Jul, Anxiety F41.9 ; Mood disorder F39 ; Morbid obesity due to excess calories E66.01 and Diabetes type 2, controlled E11.9 [place] [address] [address]- 5590 Jun, Anxiety F41.9 [facility] [address] [place] [address] 40426- 8887 Jun, Anxiety F41.9 ; Morbid obesity due to excess calories E66.01 and Diabetes type 2, controlled E11.9 [facility] [address] [address]- 7973 May, Migraine without aura and without status migrainosus, not intractable G43.009 ; Diabetes type 2, controlled E11.9 and Morbid obesity due to excess calories E66.01 [facility] [address] [address]- 8857 Apr, Migraine without aura and without status migrainosus, not intractable G43.009 ; Diabetes type 2, controlled E11.9 and Morbid obesity due to excess calories E66.01 [facility] [id number] [place] [address] 81596- 9423 Apr, Diabetes type 2, controlled E11.9 and Morbid obesity due to excess calories E66.01 [facility] [id number] [place] [address] 06941- 7704 Mar, Diabetes type 2, controlled E11.9 and Morbid obesity due to excess calories E66.01 [place] [id number] [place] [address] 98626- 8435 Mar, Diabetes type 2, controlled E11.9 and Mood disorder F39 [place] [id number] [place] [address] 25078- 5784 Feb, Morbid obesity due to excess calories E66.01 and Diabetes type 2, controlled E11.9 [place] [id number] [place] [address] 90141- 4817 Jan, Diabetes type 2, controlled E11.9 and Morbid obesity due to excess calories E66.01 [place] [id number] [place] [address] 59767- 2285 Dec, Diabetes type 2, controlled E11.9 and Morbid obesity due to excess calories E66.01 [place] [id number] [place] [address] 83235- 4319 Dec, Morbid obesity due to excess calories E66.01 [place] [id number] [place] [address] 69090- 1164 November, Diabetes type 2, controlled E11.9 and Morbid obesity due to excess calories E66.01 [place] [id number] [place] [address] 94598- 1940 November, Anxiety F41.9 and Injury of right foot, initial encounter S99.921A [place] [id number] [place] [address] 59692- 8275 November, Diabetes type 2, controlled E11.9 and Morbid obesity due to excess calories E66.01 [facility] [id number] [place] [address] 82480- 6148 November, [facility] [id number] [place] [address] 45299- 8874 Oct, Family history of brain aneurysm Z82.49 and Migraine without aura and without status migrainosus, not intractable G43.009 [facility] [id number] [place] [address] 40781- 1399 Oct, Diabetes type 2, controlled E11.9 [place] [id number] [place] [address] 36697- 4387 Oct, Morbid obesity due to excess calories E66.01 ; Family history of brain aneurysm Z82.49 and Migraine without aura and without status migrainosus, not intractable G43.009 [place] [id number] [place] [address] 84018- 9090 Oct, Diabetes type 2, controlled E11.9 and Morbid obesity due to excess calories E66.01 [place] [id number] [place] [address] 46991- 4840 Sep, [place] [id number] [place] [address] 13399- 0702 Sep, Diabetes type 2, controlled E11.9 [place] [id number] [place] [address] 49061- 3366 Sep, Morbid obesity due to excess calories E66.01 [place] [id number] [place] [address] 09544- 7722 Aug, Exposure to hepatitis C Z20.5 [place] [address] 17650- 0127 Aug, Diabetes type 2, controlled E11.9 [place] [address] 32796- 7371 Jul, Exposure to hepatitis C Z20.5 [facility] [address] [address]- 4259 Jul, Exposure to hepatitis C Z20.5 [facility] [address] [address]- 6022 Jul, [facility] [id number] [place] [address] 94368- 8477 Jul, Diabetes type 2, controlled E11.9 [facility] [address] [address]- 9053 Jun, [facility] [id number] [place] [address] 31560- 4351 Jun, Diabetes type 2, controlled E11.9 ; Pain of left foot M79.672 and Pain in right foot M79.671 [facility] [address] [place] [address] 57418- 9935 May, [facility] [address] [address]- 6207 Apr, [facility] [id number] [address]- 1741 Apr, [facility] [address] [address]- 5723 Mar, [facility] [address] [address]- 4714 Feb, [facility] [address] [address]- 5750 Feb, [facility] [id number] [place] [address] 838275- 7983 Jan, [facility] [address] 6240 Dec, Diabetes type 2, controlled E11.9 ; 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 and Abscess, abdomen K65.1 [facility] [address] [address]- 8774 Dec, Shoulder pain, right 719.41 [facility] [id number] [place] [address] 40057- 3658 November, [facility] [id number] [place] [address] 44907- 6677 November, [facility] [id number] [place] [address] 25042- 5579 Oct, [facility] [id number] [place] [address] 96762- 2936 Sep, [facility] [id number] [place] [address] 77981- 4611 Sep, [facility] [id number] [place] [address] 29611 -1549 Aug, [facility] [id number] [place] [address] 72217- 0828 Aug, [facility] [id number] [place] [address] 23627- 3496 Aug, Cellulitis, unspecified L03.90 ; Cutaneous abscess, unspecified L02.91 ; Diabetes type 2, controlled E11.9 ; Migraine G43.909 and Bilateral low back pain with sciatica, sciatica laterality unspecified M54.40 [facility] [address] [address] -9319 Aug, Abscess and cellulitis L03.90 [facility] [id number] [place] [address] 25036- 8588 Aug, [facility] [id number] [place] [address] 98699- 0856 Aug, [facility] [id number] [place] [address] 00749- 0261 Jul, [facility] [address] [facility] [id number] [place] [address]- 4425 Jul, Diabetes type 2, controlled E11.9 [facility] [address] [facility] [id number] [place] 9204 Jul, Diabetes type 2, controlled E11.9 [facility] [id number] [place] [address]- 7853 Jun, Diabetes type 2, controlled E11.9 ; Bilateral low back pain with sciatica, sciatica laterality unspecified M54.40 and Morbid obesity, unspecified obesity type E66.01 [facility] [address] [facility] [id number] [place] 3584 Jun, [facility] [address] [facility] [id number] [address]- 5878 May, [facility] [id number] [place] [address] 26433- 9183 Apr, [facility] [address] [address]- 8459 Apr, [facility] [address] 9407 Apr, [facility] [address] [place] [address]- 6926 Mar, [facility] [address] [place] [address]- 8557 Mar, [facility] [address] [facility] [id number] [address]- 5756 Mar, [facility] [address] 4575 Feb, [facility] [address] [facility] [id number] [place] 6296 Feb, [facility] [address] 9494 Feb, [facility] [address] [address]- 4256 Feb, [facility] [address] [address]- 6485 Feb, Diabetes mellitus without mention of complication, type II or unspecified type, not stated as uncontrolled 250.00 [facility] [address] [address]- 0766 Feb, [facility] [id number] [address]- 7582 Feb, [facility] [id number] [place] [address] 00048- 2118 Jan, Diabetes mellitus without mention of complication, type II or unspecified type, not stated as uncontrolled 250.00 and Cellulitis and abscess 682.9 [facility] [address] [address]- 8666 Jan, [facility] [address] [address]- 3808 Jan, [facility] [id number] [address]- 2023 Jan, [facility] [address] [address]- 9130 Dec, [facility] [address] [address]- 3126 Dec, [facility] [address] [address]- 4266 Dec, [facility] [address] [address]- 8269 November, [facility] [address] [address]- 4559 Oct, Shoulder pain, right 719.41 [facility] [address] [address]- 4025 Oct, [facility] [place] [facility] [address] [id number] [place] [address]- 0517 Oct, [facility] [place] [facility] [address] [id number] [place] [address]- 4214 Sep, [facility] [place] [facility] [address] [id number] [place] [address]- 6904 Sep, [facility] [place] [facility] [address] [id number] [place] [address]- 2671 Sep, [facility] [place] [facility] [address] [id number] [place] [address]- 7379 Sep, [facility] [place] [facility] [address] [id number] [place] [address]- 5374 Sep, [facility] [place] [facility] [address] [id number] [place] [address]- 8896 Sep, [facility] [place] [facility] [address] [id number] [place] [address]- 5271 Sep, [facility] [place] [facility] [address] [id number] [place] [address]- 2447 Sep, [facility] [place] [facility] [address] [id number] [place] [address]- 2097 Aug, [facility] [place] [facility] [address] [id number] [place] [address]- 9898 Aug, [facility] [place] [facility] [address] [id number] [address]- 8404 Aug, [facility] [place] [facility] [address] [id number] [place] [address]- 8400 Aug, [facility] [place] [facility] [address] [id number] [place] [address]- 0162 Jul, [facility] [place] [facility] [address] [id number] [place] [address]- 7014 Jul, [facility] [place] [facility] [address] [id number] [place] [address]- 8936 14 Jul, 2014 [facility] [place] [facility] [address] [id number] [place] [address]- 2396 14 Jul, 2014 [facility] [place] [facility] [address] [id number] [place] [address]- 5152 12 Jul, 2014 [facility] [place] [facility] [address] [id number] [place] [address]- 7547 Jul, [facility] [place] [facility] [address] [id number] [place] [address]- 7822 24 Jun, 2014 [facility] [place] [facility] [address] [id number] [place] [address]- 7645 24 Jun, 2014 [facility] [place] [facility] [address] [id number] [place] [address]- 3612 Jun, [facility] [place] [facility] [address] [id number] [place] [address]- 4596 19 Jun, 2014 [facility] [place] [facility] [address] [id number] [place] [address]- 2755 18 Jun, 2014 [facility] [place] [facility] [address] [id number] [place] [address]- 5046 18 Jun, 2014 [facility] [place] [facility] [address] [id number] [place] [address]- 5422 15 Jun, 2014 [facility] [place] [facility] [address] [id number] [place] [address]- 0365 15 Jun, 2014 [facility] [place] [facility] [address] [id number] [place] [address]- 5569 May, [facility] [place] [facility] [address] [id number] [place] [address]- 0751 May, [facility] [place] [facility] [address] [id number] [place] [address]- 8480 May, [facility] [place] [facility] [address] [id number] [place] [address]- 0893 May, [facility] [place] [facility] [address] [id number] [place] [address]- 8794 May, [facility] [place] [facility] [address] [id number] [place] [address]- 2113 May, [facility] [place] [facility] [address] [id number] [place] [address]- 0408 Apr, [facility] [place] [facility] [address] [id number] [place] [address]- 5941 Apr, [facility] [place] [facility] [address] [id number] [place] [address]- 0485 Apr, [facility] [place] [facility] [address] [id number] [place] [address]- 6829 Apr, [facility] [place] [facility] [address] [id number] [place] [address]- 8767 Apr, [facility] [place] [facility] [address] [id number] [place] [address]- 1197 Apr, [facility] [place] [facility] [address] [id number] [place] [address]- 2920 Apr, [facility] [place] [facility] [address] [id number] [place] [address]- 7501 Mar, [facility] [place] [facility] [address] [id number] [place] [address]- 2781 Mar, [facility] [place] [facility] [address] [id number] [place] [address]- 1650 Mar, [facility] [place] [facility] [address] [id number] [place] [address]- 6719 Mar, [facility] [place] [facility] [address] [id number] [place] [address]- 9393 Feb, [facility] [place] [facility] [address] [id number] [place] [address]- 6753 Feb, [facility] [place] [facility] [address] [id number] [place] [address]- 7706 Feb, [facility] [place] [facility] [address] [id number] [place] [address]- 3272 Feb, [facility] [place] [facility] [address] [id number] [place] [address]- 1601 Feb, [facility] [place] [facility] [address] [id number] [place] [address]- 1764 Feb, [facility] [place] [facility] [address] [id number] [place] [address]- 4786 Jan, [facility] [place] [facility] [address] [id number] [place] [address]- 8100 Jan, [facility] [place] [facility] [address] [id number] [place] [address]- 8788 Jan, [facility] [place] [facility] [address] [id number] [place] [address]- 9170 Jan, [facility] [place] [facility] [address] [id number] [place] [address] Jan, [facility] [place] [facility] [address] [id number] [place] [address] Jan, [facility] [place] [facility] [address] [id number] [place] [address] Jan, [facility] [place] [facility] [address] [id number] [place] [address] Jan, [facility] [place] [facility] [address] [id number] [place] [address] Jan, [facility] [place] [facility] [address] [id number] [place] [address] Jan, [facility] [place] [facility] [address] [id number] [place] [address] Dec, [facility] [place] [facility] [address] [id number] [place] [address] Dec, [facility] [place] [facility] [address] [id number] [place] [address] Dec, [facility] [address] [id number] [place] [address] Dec, [facility] [place] [facility] [address] [id number] [place] [address] November, [facility] [address] [id number] [place] [address] November, [facility] [place] [facility] [address] [id number] [place] [address] November, [facility] [place] [facility] [address] [id number] [place] [address] November, [facility] [place] [facility] [address] [id number] [place] [address] Oct, [facility] [place] [facility] [address] [id number] [place] [address] Oct, [facility] [address] [id number] [place] [address]100 Oct, [facility] [place] [facility] [address] [id number] [place] [address] Oct, [facility] [address] [id number] [place] [address] Oct, [facility] [place] [facility] [address] [id number] [place] [address] Oct, [facility] [place] [facility] [address] [id number] [place] [address] Oct, [facility] [place] [facility] [address] [id number] [place] [address] Oct, [facility] [place] [facility] [address] [id number] [place] [address] Sep, [facility] [place] [facility] [address] [id number] [place] [address] Sep, [facility] [place] [facility] [address] [id number] [place] [address] Sep, [facility] [place] [facility] [address] [id number] [place] [address] Sep, [facility] [place] [facility] [address] [id number] [place] [address] Sep, [facility] [place] [facility] [address] [id number] [place] [address] Sep, [facility] [place] [facility] [address] [id number] [place] [address] Aug, [facility] [place] [facility] [address] [id number] [place] [address] Aug, [facility] [place] [facility] [address] [id number] [place] [address] Jul, [facility] [place] [facility] [address] [id number] [place] [address] Jul, [facility] [place] [facility] [address] [id number] [place] [address] Jul, [facility] [place] [facility] [address] [id number] [place] [address] Jul, [facility] [place] [facility] [address] [id number] [address] Jul, [facility] [place] [facility] [address] [id number] [address] Jul, [facility] [place] [facility] [address] [id number] [place] [address] Jul, [facility] [place] [facility] [address] [id number] [place] [address] Jul, [facility] [place] [facility] [address] [id number] [place] [address] Jun, [facility] [place] [facility] [address] [id number] [place] [address] Jun, [facility] [place] [facility] [address] [id number] [place] [address] May, [facility] [place] [facility] [address] [id number] [place] [address] May, [facility] [place] [facility] [address] [id number] [place] [address] Apr, [facility] [place] [facility] [address] [id number] [place] [address] Apr, [facility] [place] [facility] [address] [id number] [place] [address] Apr, [facility] [place] [facility] [address] [id number] [place] [address] Apr, [facility] [place] [facility] [address] [id number] [place] [address] Apr, [facility] [place] [facility] [address] [id number] [place] [address] Apr, [facility] [place] [facility] [address] [id number] [place] [address] Apr, [facility] [place] [facility] [address] [id number] [place] [address] Apr, [facility] [place] [facility] [address] [id number] [place] [address] Apr, [facility] [place] [facility] [address] [id number] [address] Apr, [facility] [place] [facility] [address] [id number] [place] [address] Apr, [facility] [place] [facility] [address] [id number] [place] [address] Apr, [facility] [place] [facility] [address] [id number] [address] 18 Apr, 2013 [facility] [place] [facility] [address] [id number] [place] [address] 18 Apr, 2013 [facility] [place] [facility] [address] [id number] [place] [address] 02 Apr, 2013 [facility] [place] [facility] [address] [id number] [place] [address] 27 Mar, 2013 [facility] [place] [facility] [address] [id number] [place] [address] 27 Mar, 2013 [facility] [place] [facility] [address] [id number] [place] [address] 8585 26 Mar, 2013 [facility] [place] [facility] [address] [id number] [place] [address] 25 Mar, 2013 [facility] [place] [facility] [address] [id number] [place] [address] 16 Mar, 2013 [facility] [place] [facility] [address] [id number] [place] [address] Mar, [facility] [place] [facility] [address] [id number] [place] [address] Jan, [facility] [place] [facility] [address] [id number] [place] [address] Jan, [facility] [place] [facility] [address] [id number] [place] [address] Jan, [facility] [place] [facility] [address] [id number] [place] [address] Dec, [facility] [place] [facility] [address] [id number] [place] [address] Oct, [facility] [place] [facility] [address] [id number] [place] [address] May, [facility] [place] [facility] [address] [id number] [place] [address] 16 May, 2012 [facility] [place] [facility] [address] [id number] [place] [address] 05 Jun, 2011 [facility] [place] [facility] [address] [id number] [place] [address] 11 May, 2011 [facility] [place] [facility] [address] [id number] [place] [address] May, [facility] [place] [facility] [address] [id number] [place] [address] May, [facility] [place] [facility] [address] [id number] [place] [address]99 14 Apr, 2011 [facility] [place] [facility] [address] [id number] [place] [address] Apr, [facility] [place] [facility] [address] [id number] [place] [address] 47[address] 17 Feb, 2011 [facility] [place] [facility] [address] [id number] [place] [address] 16 Feb, 2011 [facility] [place] [facility] [address] [id number] [place] [address] Dec, [facility] [place] [facility] [address] [id number] [place] [address] Oct, [facility] [place] [facility] [address] [id number] [place] [address] Sep, [facility] [place] [facility] [address] [id number] [place] [address] Sep, [facility] [place] [facility] [address] [id number] [place] [address] Jul, [facility] [place] [facility] [address] [id number] [place] [address]255 Jul, [facility] [place] [facility] [address] [id number] [place] [address] Jun, [facility] [place] [facility] [address] [id number] [place] [address] Jun, [facility] [place] [facility] [address] [id number] [place] [address]- [address] 14 Jun, 2010 [facility] [address] [id number] [place] [address]- [address] 14 Jun, 2010 [facility] [address] [id number] [place] [address] 2546 08 Jun, 2010 [facility] [address] [id number] [place] [address]- 76[address] 30 May, 2010 [facility] [address] [id number] [place] [address]- 93[address] 23 May, 2010 [facility] [address] [id number] [place] [address] 9432 17 May, 2010 [facility] [address] [id number] [place] [address]596 17 May, 2010 [facility] [address] [facility] [id number] [place] [address] 17 May, 2010 [facility] [address] [id number] [place] [address]- [address] 17 May, 2010 [facility] [address] [facility] [id number] [place] [address] 23 Apr, 2010 [facility] [address] [facility] [id number] [place] [address]- [address] 14 Apr, 2010 [facility] [place] [facility] [address] [id number] [place] [address]- 2038 10 Mar, 2010 [facility] [address] [id number] [place] [address]- 6826 10 Feb, 2010 [facility] [place] [facility] [address] [id number] [place] [address]- 4856 17 Sep, 2009 [facility] [place] [facility] [address] [id number] [place] [address]- 2546 11 Sep, 2009 [facility] [place] [facility] [address] [facility] [id number] [place] [address] Aug, [facility] [address] [facility] [id number] [address] Jun, [facility] [address] [facility] [id number] [address] Jun, [facility] [address] [facility] [id number] [place] [address] May, [facility] [address] [facility] [id number] [address] Dec, [facility] [address] [facility] [id number] [address] Sep, IMMUNIZATIONS No Known Immunizations SOCIAL HISTORY Never Assessed REASON FOR VISIT Controlled Med Refill PLAN OF CARE VITAL SIGNS MEDICATIONS Medication Instructions Dosage Frequency Start Date End Date Duration Status [place] 5-325 MG Orally 4 times a day 1 tablet as needed 6h Feb, 28 days Active RESULTS No Results [...]
--- OUTSIDE RECORDS SUMMARY | 2018-06-27 07:24 | XMS REPORT ---
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 Name Role Phone ARABELLA DIXON Unavailable PROBLEMS Type Condition ICD9-CM Code TCJ19-MO Code Onset Dates Condition Status SNOMED Code Problem Lumbago with sciatica, right side M54.41 Active 024707183103138 Problem Diabetes type 2, controlled E11.9 Active 56700367 Problem Other chronic pain G89.29 Active 35130310 Problem High risk medications (not anticoagulants) long-term use Z79.899 Active 754345615 Problem Obstructive sleep apnea syndrome G47.33 Active 69302292 Problem Lumbago with sciatica, left side M54.42 Active 663707634 Problem Bilateral low back pain with sciatica, sciatica laterality unspecified M54.40 Active 99641714 Problem Essential hypertension I10 Active 10170973 Problem Migraine without aura and without status migrainosus, not intractable G43.009 Active 838366857 Problem Morbid obesity due to excess calories E66.01 Active 405196227 Problem Mood disorder F39 Active 64502314 Problem Anxiety F41.9 Active 50555272 ALLERGIES No Information ENCOUNTERS Encounter Location Date Diagnosis [facility] [address], [place] [address] Mar, [facility] [id number] [place] [address] 71977- 2276 Feb, Anxiety F41.9 [facility] [address] [place] [address] 88886- 4791 Feb, Morbid obesity due to excess calories E66.01 [facility] [id number] [place] [address] 54645- 8808 Feb, Bilateral low back pain with sciatica, sciatica laterality unspecified M54.40 and Diabetes type 2, controlled E11.9 [place] [address], [place] [address] 8[address] Jan, Morbid obesity due to excess calories E66.01 [place] [id number] [place] [address] 93952- 4242 Jan, [place] [id number] [place] [address] 73487- 0077 Jan, Diabetes type 2, controlled E11.9 [place] [id number] [place] [address] 04425- 5632 Jan, Diabetes type 2, controlled E11.9 [place] [id number] [place] [address] 75691- 4293 Jan, Bilateral low back pain with sciatica, sciatica laterality unspecified M54.40 and Dysfunction of both eustachian tubes H69.83 [place] [id number] [place] [address] 19284- 4928 Jan, Morbid obesity due to excess calories E66.01 [place] [id number] [place] [address] 79609- 1634 Dec, Diabetes type 2, controlled E11.9 [place] [id number] [place] [address] 20771- 3232 Dec, Morbid obesity due to excess calories E66.01 ; Essential hypertension I10 ; Tobacco abuse Z72.0 and Tobacco abuse counseling Z71.6 [place] [address] [place] [address] 53174- 8734 November, Diabetes type 2, controlled E11.9 [place] [id number] [place] [address] 59239- 0617 Oct, Diabetes type 2, controlled E11.9 [place] [id number] [place] [address] 07431- 4947 Sep, Diabetes type 2, controlled E11.9 [place] [id number] [place] [address] 17609- 6610 Sep, [place] [id number] [place] [address] 22426- 8913 Aug, Diabetes type 2, controlled E11.9 and Morbid obesity due to excess calories E66.01 [place] [address] [place] [address] 26064- 1115 Jul, Anxiety F41.9 [place] [id number] [place] [address] 63668- 6158 Jul, [place] [id number] [place] [address] 85328- 9202 Jul, Anxiety F41.9 ; Mood disorder F39 ; Morbid obesity due to excess calories E66.01 and Diabetes type 2, controlled E11.9 [place] [id number] [place] [address] 99694- 1546 Jun, Anxiety F41.9 [place] [id number] [place] [address] 28193- 4750 Jun, Anxiety F41.9 ; Morbid obesity due to excess calories E66.01 and Diabetes type 2, controlled E11.9 [place] [address] [place] [address] 73117- 1451 May, Migraine without aura and without status migrainosus, not intractable G43.009 ; Diabetes type 2, controlled E11.9 and Morbid obesity due to excess calories E66.01 [place] [address] [place] [address] 01520- 6165 Apr, Migraine without aura and without status migrainosus, not intractable G43.009 ; Diabetes type 2, controlled E11.9 and Morbid obesity due to excess calories E66.01 [place] [address] [place] [address] 24782- 6139 Apr, Diabetes type 2, controlled E11.9 and Morbid obesity due to excess calories E66.01 [place] [id number] [place] [address] 04890- 8984 Mar, Diabetes type 2, controlled E11.9 and Morbid obesity due to excess calories E66.01 [place] [address], [place] [address]- 7708 Mar, Diabetes type 2, controlled E11.9 and Mood disorder F39 [place] [address] [place] [address] 09843- 9336 Feb, Morbid obesity due to excess calories E66.01 and Diabetes type 2, controlled E11.9 [place] [id number] [place] [address] 66556- 6457 Jan, Diabetes type 2, controlled E11.9 and Morbid obesity due to excess calories E66.01 [place] [address] [place] [address] 78254- 2416 Dec, Diabetes type 2, controlled E11.9 and Morbid obesity due to excess calories E66.01 [place] [id number] [place] [address] 47205- 8010 Dec, Morbid obesity due to excess calories E66.01 [place] [address] [place] [address] 35540- 2593 November, Diabetes type 2, controlled E11.9 and Morbid obesity due to excess calories E66.01 [place] [address], [place] [address]- 2784 November, Anxiety F41.9 and Injury of right foot, initial encounter S99.921A [place] [address], [place] [address]- 4988 November, Diabetes type 2, controlled E11.9 and Morbid obesity due to excess calories E66.01 [place] [address], [place] [address]- 7330 November, [place] [address], [place] [address]- 6938 Oct, Family history of brain aneurysm Z82.49 and Migraine without aura and without status migrainosus, not intractable G43.009 [facility] [id number] [place] [address] 62316- 1329 Oct, Diabetes type 2, controlled E11.9 [facility] [id number] [place] [address] 98746- 0368 Oct, Morbid obesity due to excess calories E66.01 ; Family history of brain aneurysm Z82.49 and Migraine without aura and without status migrainosus, not intractable G43.009 [facility] [id number] [place] [address] 45520- 5575 Oct, Diabetes type 2, controlled E11.9 and Morbid obesity due to excess calories E66.01 [facility] [id number] [place] [address] 78816- 3662 Sep, [facility] [id number] [place] [address] 60624- 3724 Sep, Diabetes type 2, controlled E11.9 [facility] [id number] [place] [address] 38573- 0879 Sep, Morbid obesity due to excess calories E66.01 [facility] [id number] [place] [address] 38581- 9591 Aug, Exposure to hepatitis C Z20.5 [facility] [address] [place] [address] 51158- 1005 Aug, Diabetes type 2, controlled E11.9 [facility] [id number] [place] [address] 64833- 1768 Jul, Exposure to hepatitis C Z20.5 [facility] [id number] [place] [address] 58406- 3412 Jul, Exposure to hepatitis C Z20.5 [facility] [id number] [place] [address] 26331- 2461 Jul, [facility] [id number] [place] [address] [place] [address]- 9363 Jul, Diabetes type 2, controlled E11.9 [facility] [address] [place] [address] 34614- 7186 Jun, [facility] [id number] [place] [address] 91251- 0741 Jun, Diabetes type 2, controlled E11.9 ; Pain of left foot M79.672 and Pain in right foot M79.671 [facility] [address], [place] [address]- 1049 May, [facility] [id number] [place] [address] 51201- 1884 Apr, [facility] [id number] [place] [address] 94198- 5603 Apr, [facility] [id number] [place] [address] 04525- 8181 Mar, [facility] [id number] [place] [address] 80739- 1724 Feb, [facility] [id number] [place] [address] 67801- 6626 Feb, [facility] [address] [place] [address] 70373- 9316 Jan, [facility] [id number] [place] [address] 33811- 7888 Dec, Diabetes type 2, controlled E11.9 ; 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 and Abscess, abdomen K65.1 [facility] [id number] [place] [address] 97315- 8854 Dec, Shoulder pain, right 719.41 [facility] [address], [place] [address]- 3601 November, [facility] [id number] [place] [address] 59387- 8981 November, [facility] [address], [place] [address]- 4378 Oct, [facility] [address], [place] [address]- 4693 Sep, [facility] [address], [place] [address]- 4073 Sep, [facility] [id number] [place] [address] 94346 -8875 Aug, [facility] [id number] [place] [address] 80443- 0045 Aug, [facility] [address] [place] [address] 08662- 5273 Aug, Cellulitis, unspecified L03.90 ; Cutaneous abscess, unspecified L02.91 ; Diabetes type 2, controlled E11.9 ; Migraine G43.909 and Bilateral low back pain with sciatica, sciatica laterality unspecified M54.40 [facility] [address], [place] [address] -9366 Aug, Abscess and cellulitis L03.90 [facility] [address], [place] [address]- 0361 Aug, [facility] [address], [place] [address]- 2865 Aug, [facility] [address], [place] [address]- 8642 Jul, [facility] [address], [place] [address]- 6493 Jul, Diabetes type 2, controlled E11.9 [facility] [address], [place] [address]- 2690 Jul, Diabetes type 2, controlled E11.9 [facility] [address] [place] [address] 16189- 2657 Jun, Diabetes type 2, controlled E11.9 ; Bilateral low back pain with sciatica, sciatica laterality unspecified M54.40 and Morbid obesity, unspecified obesity type E66.01 [facility] [id number] [place] [address] 56885- 7863 Jun, [facility] [id number] [place] [address] 85679- 2310 May, [facility] [address] 65846- 0989 Apr, [facility] [id number] [place] [address] 29457- 0713 Apr, [facility] [id number] [place] [address] 95508- 1444 Apr, [facility] [id number] [place] [address] 47784- 3101 Mar, [facility] [id number] [place] [address] 22019- 9185 Mar, [facility] [id number] [place] [address] 20421- 7275 Mar, [facility] [id number] [place] [address] 22843- 3098 Feb, [facility] [id number] [place] [address] 60165- 4501 Feb, [facility] [id number] [place] [address] 45966- 9701 Feb, [facility] [id number] [place] [address] 39729- 8362 Feb, [facility] [id number] [place] [address] 84890- 6680 Feb, Diabetes mellitus without mention of complication, type II or unspecified type, not stated as uncontrolled 250.00 [facility] [id number] [place] [address] 70223- 2343 Feb, [facility] [address] 3222 Feb, [facility] [address] [place] [address]- 6581 Jan, Diabetes mellitus without mention of complication, type II or unspecified type, not stated as uncontrolled 250.00 and Cellulitis and abscess 682.9 [facility] [address] [address]- 8185 Jan, [facility] [address] [place] [address] 81099- 5425 Jan, [facility] [id number] [place] [address] 376533- 0655 Jan, [facility] [id number] [place] [address] 543066- 0054 Dec, [facility] [address], [place] [address]- 0765 Dec, [facility] [address], [place] [address]- 7911 Dec, [facility] [address], [place] [address]- 5329 November, [facility] [address], [place] [address]- 0286 Oct, Shoulder pain, right 719.41 [facility] [address], [place] [address]- 0217 Oct, [facility] [address]- 6752 Oct, [facility] [address] 7761 Sep, [facility] [address]- 9822 Sep, [facility] [place] [facility] [address] [id number] [place] [address]- 9518 Sep, [facility] [place] [facility] [address] [id number] [place] [address]- 5028 Sep, [facility] [place] [facility] [address] [id number] [place] [address]- 6836 Sep, [facility] [place] [facility] [address] [id number] [place] [address]- 7846 Sep, [facility] [place] [facility] [address] [id number] [place] [address]- 0418 Sep, [facility] [place] [facility] [address] [id number] [place] [address]- 0598 Sep, [facility] [place] [facility] [address] [id number] [place] [address]- 0764 Aug, [facility] [place] [facility] [address] [id number] [place] [address]- 5603 Aug, [facility] [place] [facility] [address] [id number] [place] [address]- 7408 Aug, [facility] [place] [facility] [address] [id number] [place] [address]- 0211 Aug, [facility] [place] [facility] [address] [id number] [place] [address]- 5824 Jul, [facility] [place] [facility] [address] [id number] [place] [address]- 8830 Jul, [facility] [place] [facility] [address] [id number] [place] [address]- 5877 Jul, [facility] [place] [facility] [address] [id number] [place] [address]- 8607 Jul, [facility] [place] [facility] [address] [id number] [place] 9603 Jul, [facility] [place] [facility] [address] [id number] [place] [address]- 2762 Jul, [facility] [place] [facility] [address] [id number] [place] [address]- 3577 Jun, [facility] [place] [facility] [address] [id number] [place] [address]- 3269 24 Jun, 2014 [facility] [place] [facility] [address] [id number] [place] [address]- 0329 Jun, [facility] [place] [facility] [address] [id number] [place] [address]- 8485 19 Jun, 2014 [facility] [place] [facility] [address] [id number] [place] [address]- 0781 18 Jun, 2014 [facility] [place] [facility] [address] [id number] [place] [address]- 0654 Jun, [facility] [place] [facility] [address] [id number] [place] [address]- 7701 15 Jun, 2014 [facility] [place] [facility] [address] [id number] [place] [address]- 4406 15 Jun, 2014 [facility] [place] [facility] [address] [id number] [place] [address]- 2143 May, [facility] [place] [facility] [address] [id number] [place] [address]- 0835 May, [facility] [place] [facility] [address] [id number] [place] [address]- 3937 May, [facility] [place] [facility] [address] [id number] [address]- 4274 18 May, 2014 [facility] [place] [facility] [address] [id number] [place] [address]- 3524 17 May, 2014 [facility] [place] [facility] [address] [id number] [place] [address]- 8086 17 May, 2014 [facility] [place] [facility] [address] [id number] [place] [address]- 6411 20 Apr, 2014 [facility] [place] [facility] [address] [id number] [place] [address]- 0053 Apr, [facility] [place] [facility] [address] [id number] [place] [address]- 1284 Apr, [facility] [place] [facility] [address] [id number] [place] [address]- 4963 Apr, [facility] [place] [facility] [address] [id number] [place] [address]- 3455 Apr, [facility] [place] [facility] [address] [id number] [place] [address]- 9097 Apr, [facility] [place] [facility] [address] [id number] [place] [address]- 6566 Apr, [facility] [place] [facility] [address] [id number] [place] [address]- 2100 Mar, [facility] [place] [facility] [address] [id number] [place] [address]- 6421 Mar, [facility] [place] [facility] [address] [id number] [place] [address]- 7807 Mar, [facility] [place] [facility] [address] [id number] [place] [address]- 3348 Mar, [facility] [place] [facility] [address] [id number] [place] [address]- 4957 Feb, [facility] [place] [facility] [address] [id number] [place] [address]- 9162 Feb, [facility] [place] [facility] [address] [id number] [place] [address]- 9242 Feb, [facility] [place] [facility] [address] [id number] [place] [address]- 1287 Feb, [facility] [place] [facility] [address] [id number] [place] [address]- 8648 Feb, [facility] [place] [facility] [address] [id number] [place] [address]- 9878 Feb, [facility] [place] [facility] [address] [id number] [place] [address]- 2666 Jan, [facility] [place] [facility] [address] [id number] [place] [address]- 7999 Jan, [facility] [place] [facility] [address] [id number] [place] [address]- 7021 Jan, [facility] [place] [facility] [address] [id number] [place] [address]- 2543 Jan, [facility] [place] [facility] [address] [id number] [place] [address]- 5029 Jan, [facility] [place] [facility] [address] [id number] [place] [address]- 4090 Jan, [facility] [place] [facility] [address] [id number] [place] [address]- 3443 Jan, [facility] [place] [facility] [address] [id number] [place] [address]- 8546 Jan, [facility] [place] [facility] [address] [id number] [place] [address]- 3151 Jan, [facility] [place] [facility] [address] [id number] [place] [address]- 4533 Jan, [facility] [place] [facility] [address] [id number] [place] [address]- 7985 Dec, [facility] [place] [facility] [address] [id number] [place] [address]- 9657 Dec, [facility] [place] [facility] [address] [id number] [place] [address]- 9654 Dec, [facility] [place] [facility] [address] [id number] [place] [address]- 8358 Dec, [facility] [place] [facility] [address] [id number] [place] [address]- 1639 November, [facility] [place] [facility] [address] [id number] [place] [address]- 9736 November, [facility] [place] [facility] [address] [id number] [place] [address]- 2021 November, [facility] [place] [facility] [address] [id number] [place] [address]- 9021 November, [facility] [place] [facility] [address] [id number] [place] [address]- 1302 Oct, [facility] [place] [facility] [address] [id number] [place] [address]- 4672 Oct, [facility] [place] [facility] [address] [id number] [place] [address] Oct, [facility] [place] [facility] [address] [id number] [place] [address] Oct, [facility] [place] [facility] [address] [id number] [place] [address] Oct, [facility] [place] [facility] [address] [id number] [place] [address] Oct, [facility] [place] [facility] [address] [id number] [place] [address] Oct, [facility] [place] [facility] [address] [id number] [place] [address] Oct, [facility] [place] [facility] [address] [id number] [place] [address] Sep, [facility] [place] [facility] [address] [id number] [place] [address] Sep, [facility] [place] [facility] [address] [id number] [place] [address] Sep, [facility] [place] [facility] [address] [id number] [place] [address] Sep, [facility] [place] [facility] [address] [id number] [place] [address] Sep, [facility] [place] [facility] [address] [id number] [place] [address] Sep, [facility] [place] [facility] [address] [id number] [place] [address] Aug, [facility] [place] [facility] [address] [id number] [place] [address] Aug, [facility] [place] [facility] [address] [id number] [place] [address] Jul, [facility] [place] [facility] [address] [id number] [place] [address] Jul, [facility] [place] [facility] [address] [id number] [place] [address] Jul, [facility] [place] [facility] [address] [id number] [place] [address] Jul, [facility] [place] [facility] [address] [id number] [place] [address] Jul, [facility] [place] [facility] [address] [id number] [place] [address] Jul, [facility] [place] [facility] [address] [id number] [place] [address] Jul, [facility] [place] [facility] [address] [id number], [place] [address] Jul, [facility] [place] [facility] [address] [id number], [place] [address] Jun, [facility] [place] [facility] [address] [id number] [place] [address] Jun, [facility] [place] [facility] [address] [id number] [place] [address] May, [facility] [place] [facility] [address] [id number], [place] [address] May, [facility] [place] [facility] [address] [id number], [place] [address] Apr, 2012 [facility] [place] [facility] [address] [id number] [place] [address] Apr, 2012 [facility] [place] [facility] [address] [id number] [place] [address] Apr, [facility] [place] [facility] [address] [id number] [place] [address] Apr, 2012 [facility] [place] [facility] [address] [id number] [place] [address] Apr, 2012 [facility] [place] [facility] [address] [id number] [place] [address] Apr, [facility] [place] [facility] [address] [id number] [place] [address]- 1429 Apr, [facility] [place] [facility] [address] [id number] [place] [address] Apr, [facility] [place] [facility] [address] [id number] [place] [address] Apr, [facility] [place] [facility] [address] [id number] [place] [address] Apr, [facility] [place] [facility] [address] [id number] [place] [address]- [id number] Apr, [facility] [place] [facility] [address] [id number], [place] [address] Apr, [facility] [place] [facility] [address] [id number], [place] [address] Apr, [facility] [place] [facility] [address] [id number] [place] [address] Apr, [facility] [place] [facility] [address] [id number], [place] [address] Apr, [facility] [place] [facility] [address] [id number], [place] [address] Mar, [facility] [place] [facility] [address] [id number] [place] [address] 27 Mar, 2012 [facility] [place] [facility] [address] [id number] [place] [address] 26 Mar, 2012 [facility] [place] [facility] [address] [id number] [place] [address] 25 Mar, 2012 [facility] [place] [facility] [address] [id number] [place] [address] 16 Mar, 2012 [facility] [place] [facility] [address] [id number] [place] [address] 03 Mar, 2013 [facility] [place] [facility] [address] [id number] [place] [address] 31 Jan, 2013 [facility] [place] [facility] [address] [id number] [place] [address] 16 Jan, 2013 [facility] [place] [facility] [address] [id number] [place] [address] Jan, [facility] [place] [facility] [address] [id number] [place] [address] Dec, [facility] [place] [facility] [address] [id number] [place] [address] 47[address] 13 Oct, 2012 [facility] [place] [facility] [address] [id number] [place] [address] 16 May, 2012 [facility] [place] [facility] [address] [id number] [place] [address] 16 May, 2012 [facility] [place] [facility] [address] [id number] [place] [address]- [address]285 05 Jun, 2011 [facility] [place] [facility] [address] [id number] [place] [address] May, [facility] [place] [facility] [address] [id number] [place] [address] May, [facility] [place] [facility] [address] [id number] [place] [address] 03 May, 2011 [facility] [place] [facility] [address] [id number] [place] [address]- [address]105 14 Apr, 2011 [facility] [place] [facility] [address] [id number] [place] [address] 1506 13 Apr, 2011 [facility] [place] [facility] [address] [id number] [place] [address] 9879 17 Feb, 2011 [facility] [place] [facility] [address] [id number] [place] [address] 3973 16 Feb, 2011 [facility] [place] [facility] [address] [id number] [place] [address]- [address] 10 Dec, 2010 [facility] [place] [facility] [address] [id number] [place] [address]- [address] 12 Oct, 2010 [facility] [place] [facility] [address] [id number] [place] [address]- 66[address] 19 Sep, 2010 [facility] [place] [facility] [address] [id number] [place] [address]- [address] 10 Sep, 2010 [facility] [place] [facility] [address] [id number] [place] [address] 20 Jul, 2010 [facility] [place] [facility] [address] [id number] [place] [address]- 8435 11 Jul, 2010 [facility] [place] [facility] [address] [id number] [place] [address]- 9794 28 Jun, 2010 [facility] [place] [facility] [address] [id number] [place] [address]- [address] 23 Jun, 2010 [facility] [place] [facility] [address] [id number] [place] [address]- 2798 14 Jun, 2010 [facility] [place] [facility] [address] [id number] [place] [address]- 6944 14 Jun, 2010 [facility] [place] [facility] [address] [id number] [place] [address]- 45[address] 08 Jun, 2010 [facility] [place] [facility] [address] [id number] [place] [address]- [address]476 30 May, 2010 [facility] [place] [facility] [address] [id number] [place] [address]- 6[address] 23 May, 2010 [facility] [place] [facility] [address] [id number] [place] [address] 17 May, 2010 [facility] [place] [facility] [address] [id number] [place] [address]- 1356 17 May, 2010 [facility] [place] [facility] [address] [id number] [place] [address]- 9902 17 May, 2010 [facility] [place] [facility] [address] [id number] [place] [address]- 9261 17 May, 2010 [facility] [place] [facility] [address] [id number] [place] [address]- 3083 23 Apr, 2010 [facility] [place] [facility] [address] [id number] [place] [address]- 8065 14 Apr, 2010 [facility] [place] [facility] [address] [id number] [place] [address]- 6128 10 Mar, 2010 [facility] [place] [facility] [address] [id number] [place] [address]- 8867 10 Feb, 2010 [facility] [place] [facility] [address] [id number] [place] [address]- 8438 17 Sep, 2009 [facility] [place] [facility] [address] [id number] [place] [address]70 Sep, [facility] [place] [facility] [address] [id number] [place] [address] Aug, [facility] [place] [facility] [address] [id number] [place] [address] 58[address] Jun, [facility] [place] [facility] [address] [id number] [place] [address]- [address] Jun, [facility] [place] [facility] [address] [id number], [place] [address] May, [facility] [address] [facility] [id number] [place] [id number] Dec, [facility] [address] [facility] [id number], [place] [address] Sep, IMMUNIZATIONS No Known Immunizations SOCIAL HISTORY Never Assessed REASON FOR VISIT Controlled Refill Request- Due 02/08 PLAN OF CARE VITAL SIGNS MEDICATIONS Medication Instructions Dosage Frequency Start Date End Date Duration Status Tatamy 5-325 MG Orally 4 times a day 1 tablet as needed 6h Jan, 28 days Active RESULTS No Results PROCEDURES [...]
--- OUTSIDE RECORDS SUMMARY | 2018-06-27 07:24 | XMS REPORT ---
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 Name Role Phone ARABELLA DIXON Unavailable PROBLEMS Type Condition ICD9-CM Code [id number] Code Onset Dates Condition Status SNOMED Code Problem Lumbago with sciatica, right side M54.41 Active 901015566044776 Problem Diabetes type 2, controlled E11.9 Active 97933261 Problem Other chronic pain G89.29 Active 86221821 Problem High risk medications (not anticoagulants) long-term use Z79.899 Active 362730744 Problem Obstructive sleep apnea syndrome G47.33 Active 93185857 Problem Lumbago with sciatica, left side M54.42 Active 561941857 Problem Bilateral low back pain with sciatica, sciatica laterality unspecified M54.40 Active 18940539 Problem Essential hypertension I10 Active 17313828 Problem Migraine without aura and without status migrainosus, not intractable G43.009 Active 903492723 Problem Morbid obesity due to excess calories E66.01 Active 252930046 Problem Mood disorder F39 Active 05107905 Problem Anxiety F41.9 Active 73081527 ALLERGIES No Information ENCOUNTERS Encounter Location Date Diagnosis [facility] [id number] [address] Mar, [facility] [id number] [place] [address] 05788- 9199 Feb, Anxiety F41.9 [facility] [id number] [place] [address] 36242- 2399 Feb, Morbid obesity due to excess calories E66.01 [facility] [id number] [place] [address] 05766- 6833 Feb, Bilateral low back pain with sciatica, sciatica laterality unspecified M54.40 and Diabetes type 2, controlled E11.9 [place] [address] [address] 5836 Jan, Morbid obesity due to excess calories E66.01 [facility] [id number] [place] [address] 69674- 7679 Jan, [facility] [id number] [place] [address] 18162- 8781 Jan, Diabetes type 2, controlled E11.9 [facility] [id number] [place] [address] 64064- 5138 Jan, Diabetes type 2, controlled E11.9 [facility] [id number] [place] [address] 10555- 4224 Jan, Bilateral low back pain with sciatica, sciatica laterality unspecified M54.40 and Dysfunction of both eustachian tubes H69.83 [place] [place] [id number] [place] [address] 00467- 1383 Jan, Morbid obesity due to excess calories E66.01 [facility] [place] [id number] [place] [address] 44566- 2950 Dec, Diabetes type 2, controlled E11.9 [facility] [id number] [place] [address] 52498- 9402 Dec, Morbid obesity due to excess calories E66.01 ; Essential hypertension I10 ; Tobacco abuse Z72.0 and Tobacco abuse counseling Z71.6 [place] [id number] [place] [address] 86363- 6539 November, Diabetes type 2, controlled E11.9 [facility] [place] [id number] [place] [address] 56768- 0596 Oct, Diabetes type 2, controlled E11.9 [facility] [id number] [place] [address] 83017- 1843 Sep, Diabetes type 2, controlled E11.9 [facility] [place] [id number] [place] [address] 18571- 5603 Sep, [facility] [id number] [place] [address] 25772- 4635 Aug, Diabetes type 2, controlled E11.9 and Morbid obesity due to excess calories E66.01 [place] [id number] [place] [address] 85964- 5020 Jul, Anxiety F41.9 [facility] [id number] [place] [address] 04206- 6511 Jul, [facility] [id number] [place] [address] 92040- 0288 Jul, Anxiety F41.9 ; Mood disorder F39 ; Morbid obesity due to excess calories E66.01 and Diabetes type 2, controlled E11.9 [place] [id number] [place] [address] 61718- 7012 Jun, Anxiety F41.9 [place] [place] [id number] [place] [address] 86650- 2424 Jun, Anxiety F41.9 ; Morbid obesity due to excess calories E66.01 and Diabetes type 2, controlled E11.9 [place] [id number] [place] [address] 79335- 8611 May, Migraine without aura and without status migrainosus, not intractable G43.009 ; Diabetes type 2, controlled E11.9 and Morbid obesity due to excess calories E66.01 [place] [id number] [place] [address] 61372- 9295 Apr, Migraine without aura and without status migrainosus, not intractable G43.009 ; Diabetes type 2, controlled E11.9 and Morbid obesity due to excess calories E66.01 [place] [id number] [place] [address] 40397- 1095 Apr, Diabetes type 2, controlled E11.9 and Morbid obesity due to excess calories E66.01 [place] [id number] [place] [address] 21687- 0804 Mar, Diabetes type 2, controlled E11.9 and Morbid obesity due to excess calories E66.01 [place] [address] [address] 4815 Mar, Diabetes type 2, controlled E11.9 and Mood disorder F39 [place] [id number] [place] [address] 96430- 8972 Feb, Morbid obesity due to excess calories E66.01 and Diabetes type 2, controlled E11.9 [place] [id number] [place] [address] 15946- 7023 Jan, Diabetes type 2, controlled E11.9 and Morbid obesity due to excess calories E66.01 [place] [id number] [place] [address] 65705- 1804 Dec, Diabetes type 2, controlled E11.9 and Morbid obesity due to excess calories E66.01 [place] [id number] [place] [address] 02407- 5484 Dec, Morbid obesity due to excess calories E66.01 [place] [id number] [place] [address] 80168- 1456 November, Diabetes type 2, controlled E11.9 and Morbid obesity due to excess calories E66.01 [place] [address] [address]- 0367 November, Anxiety F41.9 and Injury of right foot, initial encounter S99.921A [place] [address] [address]- 0236 November, Diabetes type 2, controlled E11.9 and Morbid obesity due to excess calories E66.01 [place] [address] [address]- 6121 November, [place] [address] [address]- 1553 Oct, Family history of brain aneurysm Z82.49 and Migraine without aura and without status migrainosus, not intractable G43.009 [facility] [id number] [place] [address] 02225- 9702 Oct, Diabetes type 2, controlled E11.9 [facility] [id number] [place] [address] 60737- 1361 Oct, Morbid obesity due to excess calories E66.01 ; Family history of brain aneurysm Z82.49 and Migraine without aura and without status migrainosus, not intractable G43.009 [facility] [id number] [place] [address] 42153- 1796 Oct, Diabetes type 2, controlled E11.9 and Morbid obesity due to excess calories E66.01 [facility] [id number] [place] [address] 96032- 1143 Sep, [facility] [id number] [place] [address] 71429- 9992 Sep, Diabetes type 2, controlled E11.9 [facility] [id number] [place] [address] 05634- 5381 Sep, Morbid obesity due to excess calories E66.01 [facility] [id number] [place] [address] 69886- 1520 Aug, Exposure to hepatitis C Z20.5 [facility] [id number] [place] [address] 97307- 5945 Aug, Diabetes type 2, controlled E11.9 [facility] [id number] [place] [address] 40329- 6635 Jul, Exposure to hepatitis C Z20.5 [facility] [id number] [place] [address] 41061- 8016 Jul, Exposure to hepatitis C Z20.5 [facility] [id number] [place] [address] 62139- 2193 Jul, [facility] [id number] [place] [address] [place] [address]- 8308 Jul, Diabetes type 2, controlled E11.9 [facility] [id number] [place] [address] 68837- 9470 Jun, [facility] [id number] [place] [address] 93467- 9312 Jun, Diabetes type 2, controlled E11.9 ; Pain of left foot M79.672 and Pain in right foot M79.671 [facility] [id number] [address]- 5059 May, [facility] [id number] [place] [address] 26216- 5222 Apr, [facility] [id number] [place] [address] 64717- 9430 Apr, [facility] [id number] [place] [address] 90810- 8326 Mar, [facility] [id number] [place] [address] 01007- 9802 Feb, [facility] [id number] [place] [address] 39594- 4490 Feb, [facility] [id number] [place] [address] 57535- 1768 Jan, [facility] [id number] [place] [address] 30490- 2592 Dec, Diabetes type 2, controlled E11.9 ; 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 and Abscess, abdomen K65.1 [facility] [id number] [place] [address] 23549- 1890 Dec, Shoulder pain, right 719.41 [facility] [id number] [address]- 0300 November, [facility] [id number] [place] [address] 54303- 0777 November, [facility] [address] [address]- 7372 Oct, [facility] [address] [address]- 6452 Sep, [facility] [address] [address]- 8622 Sep, [facility] [id number] [place] [address] 61903 -4708 Aug, [facility] [id number] [place] [address] 05242- 7652 Aug, [facility] [id number] [place] [address] 08039- 1634 Aug, Cellulitis, unspecified L03.90 ; Cutaneous abscess, unspecified L02.91 ; Diabetes type 2, controlled E11.9 ; Migraine G43.909 and Bilateral low back pain with sciatica, sciatica laterality unspecified M54.40 [facility] [address] [address] -7655 Aug, Abscess and cellulitis L03.90 [facility] [address] [address]- 2981 Aug, [facility] [address] [address]- 3108 Aug, [facility] [address] [address]- 2764 Jul, [facility] [address] [address]- 5054 Jul, Diabetes type 2, controlled E11.9 [facility] [address] [address]- 2327 Jul, Diabetes type 2, controlled E11.9 [facility] [id number] [place] [address] 76129- 7182 Jun, Diabetes type 2, controlled E11.9 ; Bilateral low back pain with sciatica, sciatica laterality unspecified M54.40 and Morbid obesity, unspecified obesity type E66.01 [facility] [id number] [place] [address] 64299- 7631 Jun, [facility] [id number] [place] [address] 33801- 0496 May, [facility] [address] 02885- 6941 Apr, [facility] [id number] [place] [address] 82230- 9671 Apr, [facility] [id number] [place] [address] 48276- 8367 Apr, [facility] [id number] [place] [address] 07109- 2038 Mar, [facility] [id number] [place] [address] 40120- 1212 Mar, [facility] [id number] [place] [address] 81949- 7830 Mar, [facility] [id number] [place] [address] 96662- 1256 Feb, [facility] [id number] [place] [address] 86525- 8590 Feb, [facility] [id number] [place] [address] 25829- 8134 Feb, [facility] [id number] [place] [address] 94653- 5813 Feb, [facility] [id number] [place] [address] 65279- 3282 Feb, Diabetes mellitus without mention of complication, type II or unspecified type, not stated as uncontrolled 250.00 [facility] [id number] [place] [address] 96439- 2656 Feb, [facility] [address] [place]- 6761 Feb, [facility] [id number] [address]- 9479 Jan, Diabetes mellitus without mention of complication, type II or unspecified type, not stated as uncontrolled 250.00 and Cellulitis and abscess 682.9 [facility] [id number] [address]- 2648 Jan, [facility] [id number] [place] [address] 55780- 7304 Jan, [facility] [id number] [place] [address] 705984- 0465 Jan, [facility] [id number] [place] [address] 309410- 1698 Dec, [facility] [address] [address]- 0767 Dec, [facility] [address] [address]- 6765 Dec, [facility] [address] [address]- 0616 November, [facility] [address] [address]- 2824 Oct, Shoulder pain, right 719.41 [facility] [address] [address]- 7522 Oct, [facility] [address] 0054 Oct, [facility] [address] 0273 Sep, [facility] [address]- 6086 Sep, [facility] [place] [facility] [address] [id number] [place] [address]- 9786 Sep, [facility] [place] [facility] [address] [id number] [place] [address]- 1727 Sep, [facility] [place] [facility] [address] [id number] [place] [address]- 7616 Sep, [facility] [place] [facility] [address] [id number] [place] [address]- 8366 Sep, [facility] [place] [facility] [address] [id number] [place] [address]- 8981 Sep, [facility] [place] [facility] [address] [id number] [place] [address]- 7642 Sep, [facility] [place] [facility] [address] [id number] [place] [address]- 7856 Aug, [facility] [place] [facility] [address] [id number] [place] [address]- 3968 Aug, [facility] [place] [facility] [address] [id number] [place] [address]- 1197 Aug, [facility] [place] [facility] [address] [id number] [place] [address]- 1946 Aug, [facility] [place] [facility] [address] [id number] [place] [address]- 4075 Jul, [facility] [place] [facility] [address] [id number] [place] [address]- 6249 Jul, [facility] [place] [facility] [address] [id number] [place] [address]- 6772 Jul, [facility] [place] [facility] [address] [id number] [place] [address]- 2725 Jul, [facility] [place] [facility] [address] [id number] [place] 6565 Jul, [facility] [place] [facility] [address] [id number] [place] [address]- 6905 Jul, [facility] [place] [facility] [address] [id number] [place] [address]- 8261 Jun, [facility] [place] [facility] [address] [id number] [place] [address]- 2972 24 Jun, 2014 [facility] [place] [facility] [address] [id number] [place] [address]- 4718 Jun, [facility] [place] [facility] [address] [id number] [place] [address]- 4492 19 Jun, 2014 [facility] [place] [facility] [address] [id number] [place] [address]- 8752 18 Jun, 2014 [facility] [place] [facility] [address] [id number] [place] [address]- 1548 Jun, [facility] [place] [facility] [address] [id number] [place] [address]- 3440 15 Jun, 2014 [facility] [place] [facility] [address] [id number] [place] [address]- 8137 15 Jun, 2014 [facility] [place] [facility] [address] [id number] [place] [address]- 8858 May, [facility] [place] [facility] [address] [id number] [place] [address]- 2218 May, [facility] [place] [facility] [address] [id number] [place] [address]- 1036 May, [facility] [place] [facility] [address] [id number] [place] [address]- 8022 18 May, 2014 [facility] [place] [facility] [address] [id number] [place] [address]- 4767 17 May, 2014 [facility] [place] [facility] [address] [id number] [place] [address]- 4982 17 May, 2014 [facility] [place] [facility] [address] [id number] [place] [address]- 7609 20 Apr, 2014 [facility] [place] [facility] [address] [id number] [place] [address]- 4071 Apr, [facility] [place] [facility] [address] [id number] [place] [address]- 7374 Apr, [facility] [place] [facility] [address] [id number] [place] [address]- 4875 Apr, [facility] [place] [facility] [address] [id number] [place] [address]- 6528 Apr, [facility] [place] [facility] [address] [id number] [place] [address]- 9197 Apr, [facility] [place] [facility] [address] [id number] [place] [address]- 7831 Apr, [facility] [place] [facility] [address] [id number] [place] [address]- 5462 Mar, [facility] [place] [facility] [address] [id number] [place] [address]- 5920 Mar, [facility] [place] [facility] [address] [id number] [place] [address]- 3820 Mar, [facility] [place] [facility] [address] [id number] [place] [address]- 5282 Mar, [facility] [place] [facility] [address] [id number] [place] [address]- 5978 Feb, [facility] [place] [facility] [address] [id number] [place] [address]- 5351 Feb, [facility] [place] [facility] [address] [id number] [place] [address]- 7974 Feb, [facility] [place] [facility] [address] [id number] [place] [address]- 1129 Feb, [facility] [place] [facility] [address] [id number] [place] [address]- 2419 Feb, [facility] [place] [facility] [address] [id number] [place] [address]- 2522 Feb, [facility] [place] [facility] [address] [id number] [place] [address]- 3246 Jan, [facility] [place] [facility] [address] [id number] [place] [address]- 0017 Jan, [facility] [place] [facility] [address] [id number] [place] [address]- 3640 Jan, [facility] [place] [facility] [address] [id number] [place] [address]- 0577 Jan, [facility] [place] [facility] [address] [id number] [place] [address]- 7801 Jan, [facility] [place] [facility] [address] [id number] [place] [address]- 8610 Jan, [facility] [place] [facility] [address] [id number] [place] [address]- 8593 Jan, [facility] [place] [facility] [address] [id number] [place] [address]- 0649 Jan, [facility] [place] [facility] [address] [id number] [place] [address]- 2532 Jan, [facility] [place] [facility] [address] [id number] [place] [address]- 1785 Jan, [facility] [place] [facility] [address] [id number] [place] [address]- 0060 Dec, [facility] [place] [facility] [address] [id number] [place] [address]- 6340 Dec, [facility] [place] [facility] [address] [id number] [place] [address]- 3667 Dec, [facility] [place] [facility] [address] [id number] [place] [address]- 9019 Dec, [facility] [place] [facility] [address] [id number] [place] [address]- 1612 November, [facility] [place] [facility] [address] [id number] [place] [address]- 5343 November, [facility] [place] [facility] [address] [id number] [place] [address]- 9712 November, [facility] [place] [facility] [address] [id number] [place] [address]- 8404 November, [facility] [place] [facility] [address] [id number] [place] [address] Oct, [facility] [place] [facility] [address] [id number] [place] [address] Oct, [facility] [place] [facility] [address] [id number] [place] [address] Oct, [facility] [place] [facility] [address] [id number] [place] [address] Oct, [facility] [place] [facility] [address] [id number] [place] [address] Oct, [facility] [place] [facility] [address] [id number] [place] [address] Oct, [facility] [place] [facility] [address] [id number] [place] [address] Oct, [facility] [place] [facility] [address] [id number] [place] [address] Oct, [facility] [place] [facility] [address] [id number] [place] [address] Sep, [facility] [place] [facility] [address] [id number] [place] [address] Sep, [facility] [place] [facility] [address] [id number] [place] [address] Sep, [facility] [place] [facility] [address] [id number] [place] [address] Sep, [facility] [place] [facility] [address] [id number] [place] Sep, [facility] [place] [facility] [address] [id number] [place] [address] Sep, [facility] [place] [facility] [address] [id number] [place] [address] Aug, [facility] [place] [facility] [address] [id number] [place] [address] Aug, [facility] [place] [facility] [address] [id number] [place] [address] Jul, [facility] [place] [facility] [address] [id number] [place] [address] Jul, [facility] [place] [facility] [address] [id number] [place] [address] Jul, [facility] [place] [facility] [address] [id number] [place] [address] Jul, [facility] [place] [facility] [address] [id number] [place] [address] Jul, [facility] [place] [facility] [address] [id number] [place] [address] Jul, [facility] [place] [facility] [address] [id number] [place] [address] Jul, [facility] [place] [facility] [address] [id number] [place] [address] Jul, [facility] [place] [facility] [address] [id number] [place] [address] Jun, [facility] [place] [facility] [address] [id number] [place] [address] Jun, [facility] [place] [facility] [address] [id number] [place] [address] May, [facility] [place] [facility] [address] [id number] [place] [address] May, [facility] [place] [facility] [address] [id number] [place] [address] Apr, 2012 [facility] [place] [facility] [address] [id number] [place] [address] Apr, 2012 [facility] [place] [facility] [address] [id number] [place] [address] Apr, [facility] [place] [facility] [address] [id number] [place] [address] Apr, 2012 [facility] [place] [facility] [address] [id number] [place] [address] Apr, 2012 [facility] [place] [facility] [address] [id number] [place] [address] Apr, [facility] [place] [facility] [address] [id number] [place] [address] Apr, [facility] [place] [facility] [address] [id number] [place] [address] Apr, [facility] [place] [facility] [address] [id number] [place] [address] Apr, [facility] [place] [facility] [address] [id number] [place] [address] Apr, [facility] [place] [facility] [address] [id number] [place] [address] Apr, [facility] [place] [facility] [address] [id number] [place] [address] Apr, [facility] [place] [facility] [address] [id number] [place] [address]- [address] Apr, [facility] [place] [facility] [address] [id number] [place] [address] Apr, [facility] [place] [facility] [address] [id number] [place] [address] Apr, [facility] [place] [facility] [address] [id number] [place] [address] Mar, [facility] [place] [facility] [address] [id number] [place] [address] 27 Mar, 2012 [facility] [place] [facility] [address] [id number] [place] [address] 26 Mar, 2012 [facility] [place] [facility] [address] [id number] [place] [address] 25 Mar, 2012 [facility] [place] [facility] [address] [id number] [place] [address] 16 Mar, 2012 [facility] [place] [facility] [address] [id number] [place] [address] 03 Mar, 2013 [facility] [place] [facility] [address] [id number] [place] [address] 1997 31 Jan, 2013 [facility] [place] [facility] [address] [id number] [place] [address] 16 Jan, 2013 [facility] [place] [facility] [address] [id number] [place] [address] Jan, [facility] [place] [facility] [address] [id number] [place] [address] Dec, [facility] [place] [facility] [address] [id number] [place] [address] 13 Oct, 2012 [facility] [place] [facility] [address] [id number] [place] [address] 16 May, 2012 [facility] [place] [facility] [address] [id number] [place] [address] 16 May, 2012 [facility] [place] [facility] [address] [id number] [place] [address] 05 Jun, 2011 [facility] [place] [facility] [address] [id number] [place] [address] May, [facility] [place] [facility] [address] [id number] [place] [address] May, [facility] [place] [facility] [address] [id number] [place] [address]- [address] 03 May, 2011 [facility] [place] [facility] [address] [id number] [place] [address] 14 Apr, 2011 [facility] [place] [facility] [address] [id number] [place] [address]- [address] 13 Apr, 2011 [facility] [place] [facility] [address] [id number] [place] [address] 17 Feb, 2011 [facility] [place] [facility] [address] [id number] [place] [address] 16 Feb, 2011 [facility] [place] [facility] [address] [id number] [place] [address] 10 Dec, 2010 [facility] [place] [facility] [address] [id number] [place] [address] 12 Oct, 2010 [facility] [place] [facility] [address] [id number] [place] [address] 19 Sep, 2010 [facility] [place] [facility] [address] [id number] [place] [address] 10 Sep, 2010 [facility] [place] [facility] [address] [id number] [place] [address] 20 Jul, 2010 [facility] [place] [facility] [address] [id number] [place] [address] 11 Jul, 2010 [facility] [place] [facility] [address] [id number] [place] [address] 28 Jun, 2010 [facility] [place] [facility] [address] [id number] [place] [address]- [address] 23 Jun, 2010 [facility] [place] [facility] [address] [id number] [place] [address]- [address] 14 Jun, 2010 [facility] [place] [facility] [address] [id number] [place] [address] 89[address] 14 Jun, 2010 [facility] [place] [facility] [address] [id number] [place] [address]- 49[address] 08 Jun, 2010 [facility] [place] [facility] [address] [id number] [place] [address] 4214 30 May, 2010 [facility] [place] [facility] [address] [id number] [place] [address]- [address] 23 May, 2010 [facility] [place] [facility] [address] [id number] [place] [address] 17 May, 2010 [facility] [place] [facility] [address] [id number] [place] [address]- 5936 17 May, 2010 [facility] [place] [facility] [address] [id number] [place] [address] 17 May, 2010 [facility] [place] [facility] [address] [id number] [place] [address]- [address] 17 May, 2010 [facility] [place] [facility] [address] [id number] [place] [address] 23 Apr, 2010 [facility] [place] [facility] [address] [id number] [place] [address]- 9[address] 14 Apr, 2010 [facility] [place] [facility] [address] [id number] [place] [address] 9480 10 Mar, 2010 [facility] [place] [facility] [address] [id number] [place] [address] 31[address] 10 Feb, 2010 [facility] [place] [facility] [address] [id number] [place] [address] 77[address] 17 Sep, 2009 [facility] [place] [facility] [address] [id number] [place] [address] Sep, [facility] [place] [facility] [address] [id number] [place] [address] Aug, [facility] [place] [facility] [address] [id number] [place] [address] Jun, [facility] [place] [facility] [address] [id number] [place] [address] Jun, [facility] [place] [facility] [address] [id number] [place] [address] May, [facility] [address] [facility] [id number] [place] [address] Dec, [facility] [address] [facility] [id number] [place] [address] Sep, IMMUNIZATIONS No Known Immunizations SOCIAL HISTORY Never Assessed REASON FOR VISIT Medication Request PLAN OF CARE VITAL SIGNS MEDICATIONS Medication Instructions Dosage Frequency Start Date End Date Duration Status Sklice 0.5 % Externally Once a day as directed 24h Jan, 1 dose Active RESULTS No Results PROCEDURES No Known [...]
--- OUTSIDE RECORDS SUMMARY | 2018-06-27 07:25 | XMS REPORT ---
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 Name Role Phone ARABELLA DIXON Unavailable PROBLEMS Type Condition ICD9-CM Code MIA85-DP Code Onset Dates Condition Status SNOMED Code Problem Lumbago with sciatica, right side M54.41 Active [id number] Problem Diabetes type 2, controlled E11.9 Active 94788940 Problem Other chronic pain G89.29 Active 95584586 Problem High risk medications (not anticoagulants) long-term use Z79.899 Active 034955576 Problem Obstructive sleep apnea syndrome G47.33 Active 48539442 Problem Lumbago with sciatica, left side M54.42 Active 494722272 Problem Bilateral low back pain with sciatica, sciatica laterality unspecified M54.40 Active 10639384 Problem Essential hypertension I10 Active 01117831 Problem Migraine without aura and without status migrainosus, not intractable G43.009 Active 669369104 Problem Morbid obesity due to excess calories E66.01 Active 152813212 Problem Mood disorder F39 Active 53859498 Problem Anxiety F41.9 Active 56320319 ALLERGIES No Information ENCOUNTERS Encounter Location Date Diagnosis [facility] [address] [address] Mar, [facility] [id number] [place] [address] 98299- 8045 Feb, Anxiety F41.9 [facility] [address] [place] [address] 57183- 3171 Feb, Morbid obesity due to excess calories E66.01 [facility] [id number] [place] [address] 99054- 6162 Feb, Bilateral low back pain with sciatica, sciatica laterality unspecified M54.40 and Diabetes type 2, controlled E11.9 [place] [address] [address] 34[address] Jan, Morbid obesity due to excess calories E66.01 [facility] [id number] [place] [address] 84693- 7279 Jan, [facility] [id number] [place] [address] 00382- 2672 Jan, Diabetes type 2, controlled E11.9 [facility] [id number] [place] [address] 85640- 7784 Jan, Diabetes type 2, controlled E11.9 [facility] [id number] [place] [address] 92412- 8574 Jan, Bilateral low back pain with sciatica, sciatica laterality unspecified M54.40 and Dysfunction of both eustachian tubes H69.83 [facility] [id number] [place] [address] 88176- 5072 Jan, Morbid obesity due to excess calories E66.01 [facility] [id number] [place] [address] 45854- 3068 Dec, Diabetes type 2, controlled E11.9 [facility] [id number] [place] [address] 97761- 6334 Dec, Morbid obesity due to excess calories E66.01 ; Essential hypertension I10 ; Tobacco abuse Z72.0 and Tobacco abuse counseling Z71.6 [facility] [address] [place] [address] 78922- 3079 November, Diabetes type 2, controlled E11.9 [facility] [id number] [place] [address] 84826- 5985 Oct, Diabetes type 2, controlled E11.9 [facility] [id number] [place] [address] 75941- 9138 Sep, Diabetes type 2, controlled E11.9 [facility] [id number] [place] [address] 15449- 7700 Sep, [facility] [id number] [place] [address] 19943- 6386 Aug, Diabetes type 2, controlled E11.9 and Morbid obesity due to excess calories E66.01 [facility] [facility] [address] [place] [address] 77773- 9788 Jul, Anxiety F41.9 [facility] [id number] [place] [address] 13357- 3462 Jul, [facility] [id number] [place] [address] 52573- 6973 Jul, Anxiety F41.9 ; Mood disorder F39 ; Morbid obesity due to excess calories E66.01 and Diabetes type 2, controlled E11.9 [facility] [id number] [place] [address] 65433- 4241 Jun, Anxiety F41.9 [facility] [id number] [place] [address] 27706- 6902 Jun, Anxiety F41.9 ; Morbid obesity due to excess calories E66.01 and Diabetes type 2, controlled E11.9 [place] [address] [place] [address] 58330- 7615 May, Migraine without aura and without status migrainosus, not intractable G43.009 ; Diabetes type 2, controlled E11.9 and Morbid obesity due to excess calories E66.01 [facility] [address] [place] [address] 77351- 2929 Apr, Migraine without aura and without status migrainosus, not intractable G43.009 ; Diabetes type 2, controlled E11.9 and Morbid obesity due to excess calories E66.01 [place] [address] [place] [address] 81358- 5039 Apr, Diabetes type 2, controlled E11.9 and Morbid obesity due to excess calories E66.01 [facility] [id number] [place] [address] 49771- 7657 Mar, Diabetes type 2, controlled E11.9 and Morbid obesity due to excess calories E66.01 [place] [address] [address]- 0489 Mar, Diabetes type 2, controlled E11.9 and Mood disorder F39 [place] [address] [place] [address] 49771- 4078 Feb, Morbid obesity due to excess calories E66.01 and Diabetes type 2, controlled E11.9 [facility] [id number] [place] [address] 19082- 3785 Jan, Diabetes type 2, controlled E11.9 and Morbid obesity due to excess calories E66.01 [facility] [address] [place] [address] 79803- 3200 Dec, Diabetes type 2, controlled E11.9 and Morbid obesity due to excess calories E66.01 [facility] [id number] [place] [address] 33671- 6084 Dec, Morbid obesity due to excess calories E66.01 [facility] [address] [place] [address] 67733- 1605 November, Diabetes type 2, controlled E11.9 and Morbid obesity due to excess calories E66.01 [place] [address], [place] [address]- 2127 November, Anxiety F41.9 and Injury of right foot, initial encounter S99.921A [place] [address], [place] [address]- 6890 November, Diabetes type 2, controlled E11.9 and Morbid obesity due to excess calories E66.01 [place] [address], [place] [address]- 6[address] November, [facility] [address] [address]- 5545 Oct, Family history of brain aneurysm Z82.49 and Migraine without aura and without status migrainosus, not intractable G43.009 [facility] [id number] [place] [address] 49715- 7409 Oct, Diabetes type 2, controlled E11.9 [facility] [id number] [place] [address] 82467- 9541 Oct, Morbid obesity due to excess calories E66.01 ; Family history of brain aneurysm Z82.49 and Migraine without aura and without status migrainosus, not intractable G43.009 [facility] [id number] [place] [address] 76539- 5687 Oct, Diabetes type 2, controlled E11.9 and Morbid obesity due to excess calories E66.01 [facility] [id number] [place] [address] 50495- 1195 Sep, [facility] [id number] [place] [address] 54552- 7660 Sep, Diabetes type 2, controlled E11.9 [facility] [id number] [place] [address] 55543- 8087 Sep, Morbid obesity due to excess calories E66.01 [facility] [id number] [place] [address] 74758- 6747 Aug, Exposure to hepatitis C Z20.5 [facility] [address] [place] [address] 87780- 3419 Aug, Diabetes type 2, controlled E11.9 [facility] [id number] [place] [address] 79185- 8711 Jul, Exposure to hepatitis C Z20.5 [facility] [id number] [place] [address] 03572- 6378 Jul, Exposure to hepatitis C Z20.5 [facility] [id number] [place] [address] 11960- 4468 Jul, [facility] [id number] [place] [address] [place] [address]- 1701 Jul, Diabetes type 2, controlled E11.9 [facility] [address] [place] [address] 93153- 1385 Jun, [facility] [id number] [place] [address] 79635- 1164 Jun, Diabetes type 2, controlled E11.9 ; Pain of left foot M79.672 and Pain in right foot M79.671 [facility] [id number] [address]- 6733 May, [facility] [id number] [place] [address] 96285- 3975 Apr, [facility] [id number] [place] [address] 58422- 1872 Apr, [facility] [id number] [place] [address] 77390- 1153 Mar, [facility] [id number] [place] [address] 57154- 2537 Feb, [facility] [id number] [place] [address] 74039- 4667 Feb, [facility] [address] [place] [address] 91889- 4956 Jan, [facility] [id number] [place] [address] 20092- 4681 Dec, Diabetes type 2, controlled E11.9 ; 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 and Abscess, abdomen K65.1 [facility] [id number] [place] [address] 93051- 6485 Dec, Shoulder pain, right 719.41 [facility] [id number] [address]- 5003 November, [facility] [id number] [place] [address] 83680- 2971 November, [facility] [address], [place] [address]- 4015 Oct, [facility] [address], [place] [address]- 1267 Sep, [facility] [address], [place] [address]- 8982 Sep, [facility] [id number] [place] [address] 16580 -1527 Aug, [facility] [id number] [place] [address] 12038- 1324 Aug, [facility] [address] [place] [address] 47686- 8568 Aug, Cellulitis, unspecified L03.90 ; Cutaneous abscess, unspecified L02.91 ; Diabetes type 2, controlled E11.9 ; Migraine G43.909 and Bilateral low back pain with sciatica, sciatica laterality unspecified M54.40 [facility] [address], [place] [address] -5326 Aug, Abscess and cellulitis L03.90 [facility] [address], [place] [address]- 0124 Aug, [facility] [address], [place] [address]- 2967 Aug, [facility] [address], [place] [address]- 3571 Jul, [facility] [address], [place] [address]- 0391 Jul, Diabetes type 2, controlled E11.9 [facility] [address], [place] [address]- 3061 Jul, Diabetes type 2, controlled E11.9 [facility] [address] [place] [address] 73889- 0515 Jun, Diabetes type 2, controlled E11.9 ; Bilateral low back pain with sciatica, sciatica laterality unspecified M54.40 and Morbid obesity, unspecified obesity type E66.01 [facility] [id number] [place] [address] 92522- 6471 Jun, [facility] [id number] [place] [address] 77529- 9190 May, [facility] [address] 06981- 2469 Apr, [facility] [id number] [place] [address] 08334- 3839 Apr, [facility] [id number] [place] [address] 86993- 9110 Apr, [facility] [id number] [place] [address] 24052- 8341 Mar, [facility] [id number] [place] [address] 32688- 7943 Mar, [facility] [id number] [place] [address] 16073- 1076 Mar, [facility] [id number] [place] [address] 04705- 6359 Feb, [facility] [id number] [place] [address] 96580- 7368 Feb, [facility] [id number] [place] [address] 29347- 6908 Feb, [facility] [id number] [place] [address] 80539- 4008 Feb, [facility] [id number] [place] [address] 00184- 6309 Feb, Diabetes mellitus without mention of complication, type II or unspecified type, not stated as uncontrolled 250.00 [facility] [id number] [place] [address] 12247- 5577 Feb, [facility] [address] 8368 Feb, [facility] [id number] [address]- 4275 Jan, Diabetes mellitus without mention of complication, type II or unspecified type, not stated as uncontrolled 250.00 and Cellulitis and abscess 682.9 [facility] [id number] [address]- 1437 Jan, [facility] [address] [place] [address] 39597- 2259 Jan, [facility] [id number] [place] [address] 591757- 3358 Jan, [facility] [id number] [place] [address] 980987- 5365 Dec, [facility] [address], [place] [address]- 7662 Dec, [facility] [address], [place] [address]- 0369 Dec, [facility] [address], [place] [address]- 1875 November, [facility] [address], [place] [address]- 0967 Oct, Shoulder pain, right 719.41 [facility] [address], [place] [address]- 8347 Oct, [facility] [address] 6708 Oct, [facility] [address] 7261 Sep, [facility] [address] 6306 Sep, [facility] [place] [facility] [address] [id number] [place] [address]- 7813 Sep, [facility] [place] [facility] [address] [id number] [place] [address]- 6332 Sep, [facility] [place] [facility] [address] [id number] [place] [address]- 2335 Sep, [facility] [place] [facility] [address] [id number] [place] [address]- 0009 Sep, [facility] [place] [facility] [address] [id number] [place] [address]- 0777 Sep, [facility] [place] [facility] [address] [id number] [place] [address]- 2301 Sep, [facility] [place] [facility] [address] [id number] [place] [address]- 3486 Aug, [facility] [place] [facility] [address] [id number] [place] [address]- 5768 Aug, [facility] [place] [facility] [address] [id number] [place] [address]- 2957 Aug, [facility] [place] [facility] [address] [id number] [place] [address]- 3850 Aug, [facility] [place] [facility] [address] [id number] [place] [address]- 1553 Jul, [facility] [place] [facility] [address] [id number] [place] [address]- 4379 Jul, [facility] [place] [facility] [address] [id number] [place] [address]- 8208 Jul, [facility] [place] [facility] [address] [id number] [place] [address]- 4475 Jul, [facility] [place] [facility] [address] [id number] [place] 5309 Jul, [facility] [place] [facility] [address] [id number] [place] [address]- 5344 Jul, [facility] [place] [facility] [address] [id number] [place] [address]- 5179 Jun, [facility] [place] [facility] [address] [id number] [place] [address]- 1755 24 Jun, 2014 [facility] [place] [facility] [address] [id number] [place] [address]- 9852 Jun, [facility] [place] [facility] [address] [id number] [place] [address]- 8384 19 Jun, 2014 [facility] [place] [facility] [address] [id number] [place] [address]- 6328 18 Jun, 2014 [facility] [place] [facility] [address] [id number] [place] [address]- 8814 Jun, [facility] [place] [facility] [address] [id number] [place] [address]- 5857 15 Jun, 2014 [facility] [place] [facility] [address] [id number] [place] [address]- 0204 15 Jun, 2014 [facility] [place] [facility] [address] [id number] [place] [address]- 1325 May, [facility] [place] [facility] [address] [id number] [place] [address]- 0723 May, [facility] [place] [facility] [address] [id number] [place] [address]- 0085 May, [facility] [place] [facility] [address] [id number] [address]- 3095 18 May, 2014 [facility] [place] [facility] [address] [id number] [place] [address]- 3695 17 May, 2014 [facility] [place] [facility] [address] [id number] [place] [address]- 2815 17 May, 2014 [facility] [place] [facility] [address] [id number] [place] [address]- 9267 20 Apr, 2014 [facility] [place] [facility] [address] [id number] [place] [address]- 5440 Apr, [facility] [place] [facility] [address] [id number] [place] [address]- 1084 Apr, [facility] [place] [facility] [address] [id number] [place] [address]- 9835 Apr, [facility] [place] [facility] [address] [id number] [place] [address]- 6567 Apr, [facility] [place] [facility] [address] [id number] [place] [address]- 5428 Apr, [facility] [place] [facility] [address] [id number] [place] [address]- 3173 Apr, [facility] [place] [facility] [address] [id number] [place] [address]- 7952 Mar, [facility] [place] [facility] [address] [id number] [place] [address]- 8835 Mar, [facility] [place] [facility] [address] [id number] [place] [address]- 1078 Mar, [facility] [place] [facility] [address] [id number] [place] [address]- 1408 Mar, [facility] [place] [facility] [address] [id number] [place] [address]- 5651 Feb, [facility] [place] [facility] [address] [id number] [place] [address]- 2060 Feb, [facility] [place] [facility] [address] [id number] [place] [address]- 6013 Feb, [facility] [place] [facility] [address] [id number] [place] [address]- 3172 Feb, [facility] [place] [facility] [address] [id number] [place] [address]- 3658 Feb, [facility] [place] [facility] [address] [id number] [place] [address]- 9938 Feb, [facility] [place] [facility] [address] [id number] [place] [address]- 5386 Jan, [facility] [place] [facility] [address] [id number] [place] [address]- 9967 Jan, [facility] [place] [facility] [address] [id number] [place] [address]- 6507 Jan, [facility] [place] [facility] [address] [id number] [place] [address]- 4268 Jan, [facility] [place] [facility] [address] [id number] [place] [address]- 7267 Jan, [facility] [place] [facility] [address] [id number] [place] [address]- 2977 Jan, [facility] [place] [facility] [address] [id number] [place] [address]- 0866 Jan, [facility] [place] [facility] [address] [id number] [place] [address] Jan, [facility] [place] [facility] [address] [id number] [place] [address] Jan, [facility] [place] [facility] [address] [id number] [place] [address] Jan, [facility] [place] [facility] [address] [id number] [place] [address] Dec, [facility] [place] [facility] [address] [id number] [place] [address] Dec, [facility] [place] [facility] [address] [id number] [place] [address] Dec, [facility] [place] [facility] [address] [id number] [place] [address] Dec, [facility] [place] [facility] [address] [id number] [place] [address] November, [facility] [place] [facility] [address] [id number] [place] [address] November, [facility] [place] [facility] [address] [id number] [place] [address] November, [facility] [place] [facility] [address] [id number] [place] [address] November, [facility] [place] [facility] [address] [id number] [place] [address] Oct, [facility] [place] [facility] [address] [id number] [place] [address] Oct, [facility] [place] [facility] [address] [id number] [place] [address] Oct, [facility] [place] [facility] [address] [id number] [place] [address] Oct, [facility] [place] [facility] [address] [id number] [place] [address] Oct, [facility] [place] [facility] [address] [id number] [place] [address] Oct, [facility] [place] [facility] [address] [id number] [place] [address] Oct, [facility] [place] [facility] [address] [id number] [place] [address] Oct, [facility] [place] [facility] [address] [id number] [place] [address] Sep, [facility] [place] [facility] [address] [id number] [place] [address] Sep, [facility] [place] [facility] [address] [id number] [place] [address] Sep, [facility] [place] [facility] [address] [id number] [place] [address] Sep, [facility] [place] [facility] [address] [id number] [place] [address] Sep, [facility] [place] [facility] [address] [id number] [place] [address] Sep, [facility] [place] [facility] [address] [id number] [place] [address] Aug, [facility] [place] [facility] [address] [id number] [place] [address] Aug, [facility] [place] [facility] [address] [id number] [place] [address] Jul, [facility] [place] [facility] [address] [id number] [place] [address] Jul, [facility] [place] [facility] [address] [id number] [place] [address] Jul, [facility] [place] [facility] [address] [id number] [place] [address] Jul, [facility] [place] [facility] [address] [id number] [place] [address] Jul, [facility] [place] [facility] [address] [id number] [place] [address] Jul, [facility] [place] [facility] [address] [id number] [place] [address] Jul, [facility] [place] [facility] [address] [id number] [address] Jul, [facility] [place] [facility] [address] [id number], [place] [address] Jun, [facility] [place] [facility] [address] [id number] [place] [address] Jun, [facility] [place] [facility] [address] [id number] [place] [address] May, [facility] [place] [facility] [address] [id number] [address] May, [facility] [place] [facility] [address] [id number], [place] [address] Apr, 2012 [facility] [place] [facility] [address] [id number] [place] [address] Apr, 2012 [facility] [place] [facility] [address] [id number] [place] [address] Apr, [facility] [place] [facility] [address] [id number] [place] [address] Apr, 2012 [facility] [place] [facility] [address] [id number] [place] [address] Apr, 2012 [facility] [place] [facility] [address] [id number] [place] [address] Apr, [facility] [place] [facility] [address] [id number] [place] [address] Apr, [facility] [place] [facility] [address] [id number] [place] [address] Apr, [facility] [place] [facility] [address] [id number] [place] [address] Apr, [facility] [place] [facility] [address] [id number] [place] [address] Apr, [facility] [place] [facility] [address] [id number] [place] [address] Apr, [facility] [place] [facility] [address] [id number], [place] [address] Apr, [facility] [place] [facility] [address] [id number], [place] [address] Apr, [facility] [place] [facility] [address] [id number] [place] [address] Apr, [facility] [place] [facility] [address] [id number][place] [address] Apr, [facility] [place] [facility] [address] [id number], [place] [address] Mar, [facility] [place] [facility] [address] [id number] [place] [address] 27 Mar, 2012 [facility] [place] [facility] [address] [id number] [place] [address] 26 Mar, 2012 [facility] [place] [facility] [address] [id number] [place] [address] 25 Mar, 2012 [facility] [place] [facility] [address] [id number] [place] [address] 111[address] 16 Mar, 2012 [facility] [place] [facility] [address] [id number] [place] [address] 03 Mar, 2013 [facility] [place] [facility] [address] [id number] [place] [address] 31 Jan, 2013 [facility] [place] [facility] [address] [id number] [place] [address]- [address] 16 Jan, 2013 [facility] [place] [facility] [address] [id number] [place] [address] Jan, [facility] [place] [facility] [address] [id number] [place] [address] Dec, [facility] [place] [facility] [address] [id number] [place] [address] 13 Oct, 2012 [facility] [place] [facility] [address] [id number] [place] [address] 16 May, 2012 [facility] [place] [facility] [address] [id number] [place] [address] 16 May, 2012 [facility] [place] [facility] [address] [id number] [place] [address] 05 Jun, 2011 [facility] [place] [facility] [address] [id number] [place] [address] May, [facility] [place] [facility] [address] [id number] [place] [address] May, [facility] [place] [facility] [address] [id number] [place] [address] 03 May, 2011 [facility] [place] [facility] [address] [id number] [place] [address] 14 Apr, 2011 [facility] [place] [facility] [address] [id number] [place] [address]686 13 Apr, 2011 [facility] [place] [facility] [address] [id number] [place] [address] 94[address] 17 Feb, 2011 [facility] [place] [facility] [address] [id number] [place] [address] 16 Feb, 2011 [facility] [place] [facility] [address] [id number] [place] [address] 10 Dec, 2010 [facility] [place] [facility] [address] [id number] [place] [address] 12 Oct, 2010 [facility] [place] [facility] [address] [id number] [place] [address] 97[address] 19 Sep, 2010 [facility] [place] [facility] [address] [id number] [place] [address] 1625 10 Sep, 2010 [facility] [place] [facility] [address] [id number] [place] [address] 4212 20 Jul, 2010 [facility] [place] [facility] [address] [id number] [place] [address]- 6569 11 Jul, 2010 [facility] [place] [facility] [address] [id number] [place] [address] 68[address] 28 Jun, 2010 [facility] [place] [facility] [address] [id number] [place] [address]- 9[address] 23 Jun, 2010 [facility] [place] [facility] [address] [id number] [place] [address] 14 Jun, 2010 [facility] [place] [facility] [address] [id number] [place] [address] 14 Jun, 2010 [facility] [place] [facility] [address] [id number] [place] [address]- 7086 08 Jun, 2010 [facility] [place] [facility] [address] [id number] [place] [address] 3535 30 May, 2010 [facility] [place] [facility] [address] [id number] [place] [address]- 4360 23 May, 2010 [facility] [place] [facility] [address] [id number] [place] [address] 17 May, 2010 [facility] [place] [facility] [address] [id number] [place] [address] 17 May, 2010 [facility] [place] [facility] [address] [id number] [place] [address]- 4488 17 May, 2010 [facility] [place] [facility] [address] [id number] [place] [address] 1553 17 May, 2010 [facility] [place] [facility] [address] [id number] [place] [address] 7249 23 Apr, 2010 [facility] [place] [facility] [address] [id number] [place] [address]- 0268 14 Apr, 2010 [facility] [place] [facility] [address] [id number] [place] [address]- 0313 10 Mar, 2010 [facility] [place] [facility] [address] [id number] [place] [address]- 2192 10 Feb, 2010 [facility] [place] [facility] [address] [id number] [place] [address]- 3537 17 Sep, 2009 [facility] [place] [facility] [address] [id number] [place] [address] Sep, [facility] [place] [facility] [address] [id number] [place] [address] 30[address] Aug, [facility] [place] [facility] [address] [id number] [place] [address]37 Jun, [facility] [place] [facility] [address] [id number] [place] [address]- [address] Jun, [facility] [place] [facility] [address] [id number], [place] [address] May, [facility] [address] [facility] [id number] [place] [address] Dec, [facility] [address] [facility] [id number], [place] [address] Sep, IMMUNIZATIONS No Known Immunizations SOCIAL HISTORY Never Assessed REASON FOR VISIT Controlled med refill PLAN OF CARE VITAL SIGNS MEDICATIONS Medication Instructions Dosage Frequency Start Date End Date Duration Status Dextroamphetamine Sulfate 10 MG Orally Three times a day 2 tablets 8h Jan, 28 days Active RESULTS No Results [...]
--- OUTSIDE RECORDS SUMMARY | 2018-06-27 07:25 | XMS REPORT ---
Author Author ARABELLA DIXON Organization [facility] Address [address] [place] [address] Care Team Providers Care Assistant Branch Manager Name Role Phone ARABELLA DIXON Unavailable PROBLEMS Type Condition ICD9-CM Code LPA86-PO Code Onset Dates Condition Status SNOMED Code Problem Lumbago with sciatica, right side M54.41 Active 239243115082024 Problem Diabetes type 2, controlled E11.9 Active 25180410 Problem Other chronic pain G89.29 Active 18658670 Problem High risk medications (not anticoagulants) long-term use Z79.899 Active 640076280 Problem Obstructive sleep apnea syndrome G47.33 Active 91791539 Problem Lumbago with sciatica, left side M54.42 Active 437841417 Problem Bilateral low back pain with sciatica, sciatica laterality unspecified M54.40 Active 27578453 Problem Essential hypertension I10 Active 26068617 Problem Migraine without aura and without status migrainosus, not intractable G43.009 Active 675094716 Problem Morbid obesity due to excess calories E66.01 Active 610027966 Problem Mood disorder F39 Active 65357639 Problem Anxiety F41.9 Active 10725672 ALLERGIES No Information ENCOUNTERS Encounter Location Date Diagnosis [facility] [id number] [address] Mar, [facility] [id number] [place] [address] 43472- 1498 Feb, Anxiety F41.9 [facility] [id number] [place] [address] 96734- 4334 Feb, Morbid obesity due to excess calories E66.01 [facility] [id number] [place] [address] 23755- 8447 Feb, Bilateral low back pain with sciatica, sciatica laterality unspecified M54.40 and Diabetes type 2, controlled E11.9 [place] [address], [place] [address] 5918 Jan, Morbid obesity due to excess calories E66.01 [place] [id number] [place] [address] 27656- 5716 Jan, [facility] [id number] [place] [address] 70759- 7344 Jan, Diabetes type 2, controlled E11.9 [place] [id number] [place] [address] 84523- 1137 Jan, Diabetes type 2, controlled E11.9 [place] [id number] [place] [address] 34334- 7878 Jan, Bilateral low back pain with sciatica, sciatica laterality unspecified M54.40 and Dysfunction of both eustachian tubes H69.83 [place] [id number] [place] [address] 23388- 4367 Jan, Morbid obesity due to excess calories E66.01 [place] [id number] [place] [address] 45900- 8982 Dec, Diabetes type 2, controlled E11.9 [place] [id number] [place] [address] 15214- 3054 Dec, Morbid obesity due to excess calories E66.01 ; Essential hypertension I10 ; Tobacco abuse Z72.0 and Tobacco abuse counseling Z71.6 [place] [id number] [place] [address] 73758- 2045 November, Diabetes type 2, controlled E11.9 [place] [id number] [place] [address] 92450- 1799 Oct, Diabetes type 2, controlled E11.9 [place] [id number] [place] [address] 17035- 8165 Sep, Diabetes type 2, controlled E11.9 [place] [id number] [place] [address] 59680- 7977 Sep, [place] [facility] [id number] [place] [address] 31263- 3477 Aug, Diabetes type 2, controlled E11.9 and Morbid obesity due to excess calories E66.01 [place] [id number] [place] [address] 41375- 6897 Jul, Anxiety F41.9 [place] [id number] [place] [address] 02750- 1344 Jul, [place] [id number] [place] [address] 20906- 1493 Jul, Anxiety F41.9 ; Mood disorder F39 ; Morbid obesity due to excess calories E66.01 and Diabetes type 2, controlled E11.9 [place] [id number] [place] [address] 44038- 6957 Jun, Anxiety F41.9 [place] [id number] [place] [address] 55601- 1114 Jun, Anxiety F41.9 ; Morbid obesity due to excess calories E66.01 and Diabetes type 2, controlled E11.9 [place] [id number] [place] [address] 10341- 9342 May, Migraine without aura and without status migrainosus, not intractable G43.009 ; Diabetes type 2, controlled E11.9 and Morbid obesity due to excess calories E66.01 [place] [address] [place] [address] 23146- 3797 Apr, Migraine without aura and without status migrainosus, not intractable G43.009 ; Diabetes type 2, controlled E11.9 and Morbid obesity due to excess calories E66.01 [place] [address] [place] [address] 55824- 5967 Apr, Diabetes type 2, controlled E11.9 and Morbid obesity due to excess calories E66.01 [place] [id number] [place] [address] 31726- 1604 Mar, Diabetes type 2, controlled E11.9 and Morbid obesity due to excess calories E66.01 [place] [address], [place] [address] 8829 Mar, Diabetes type 2, controlled E11.9 and Mood disorder F39 [place] [id number] [place] [address] 18065- 9098 Feb, Morbid obesity due to excess calories E66.01 and Diabetes type 2, controlled E11.9 [place] [id number] [place] [address] 12729- 3828 Jan, Diabetes type 2, controlled E11.9 and Morbid obesity due to excess calories E66.01 [place] [address] [place] [address] 69712- 5117 Dec, Diabetes type 2, controlled E11.9 and Morbid obesity due to excess calories E66.01 [place] [id number] [place] [address] 35725- 5793 Dec, Morbid obesity due to excess calories E66.01 [place] [address] [place] [address] 75346- 9447 November, Diabetes type 2, controlled E11.9 and Morbid obesity due to excess calories E66.01 [place] [address], [place] [address]- 9136 November, Anxiety F41.9 and Injury of right foot, initial encounter S99.921A [place] [address], [place] [address]- 5598 November, Diabetes type 2, controlled E11.9 and Morbid obesity due to excess calories E66.01 [place] [address], [place] [address]- 9791 November, [place] [address], [place] [address]- 6838 Oct, Family history of brain aneurysm Z82.49 and Migraine without aura and without status migrainosus, not intractable G43.009 [facility] [id number] [place] [address] 15668- 8488 Oct, Diabetes type 2, controlled E11.9 [facility] [id number] [place] [address] 34703- 3836 Oct, Morbid obesity due to excess calories E66.01 ; Family history of brain aneurysm Z82.49 and Migraine without aura and without status migrainosus, not intractable G43.009 [facility] [id number] [place] [address] 60927- 4306 Oct, Diabetes type 2, controlled E11.9 and Morbid obesity due to excess calories E66.01 [facility] [id number] [place] [address] 69298- 5931 Sep, [facility] [id number] [place] [address] 13982- 6266 Sep, Diabetes type 2, controlled E11.9 [facility] [id number] [place] [address] 17716- 4101 Sep, Morbid obesity due to excess calories E66.01 [facility] [id number] [place] [address] 00736- 9506 Aug, Exposure to hepatitis C Z20.5 [facility] [address] [place] [address] 09890- 0872 Aug, Diabetes type 2, controlled E11.9 [facility] [id number] [place] [address] 86176- 6083 Jul, Exposure to hepatitis C Z20.5 [facility] [id number] [place] [address] 01229- 0190 Jul, Exposure to hepatitis C Z20.5 [facility] [id number] [place] [address] 61905- 9502 Jul, [facility] [id number] [place] [address] [place] [address]- 6061 Jul, Diabetes type 2, controlled E11.9 [facility] [address] [place] [address] 26670- 0399 Jun, [facility] [id number] [place] [address] 82540- 4979 Jun, Diabetes type 2, controlled E11.9 ; Pain of left foot M79.672 and Pain in right foot M79.671 [facility] [id number] [address]- 7161 May, [facility] [id number] [place] [address] 00596- 3060 Apr, [facility] [id number] [place] [address] 28795- 5503 Apr, [facility] [id number] [place] [address] 65647- 0789 Mar, [facility] [id number] [place] [address] 08601- 7308 Feb, [facility] [id number] [place] [address] 36469- 9502 Feb, [facility] [id number] [place] [address] 16827- 2501 Jan, [facility] [id number] [place] [address] 43290- 1830 Dec, Diabetes type 2, controlled E11.9 ; 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 and Abscess, abdomen K65.1 [facility] [id number] [place] [address] 91227- 5383 Dec, Shoulder pain, right 719.41 [facility] [id number] [address]- 3811 November, [facility] [id number] [place] [address] 99712- 2342 November, [facility] [address], [place] [address]- 5448 Oct, [facility] [address], [place] [address]- 5934 Sep, [facility] [address], [place] [address]- 5135 Sep, [facility] [id number] [place] [address] 83887 -6420 Aug, [facility] [id number] [place] [address] 12797- 4144 Aug, [facility] [address] [place] [address] 84016- 1339 Aug, Cellulitis, unspecified L03.90 ; Cutaneous abscess, unspecified L02.91 ; Diabetes type 2, controlled E11.9 ; Migraine G43.909 and Bilateral low back pain with sciatica, sciatica laterality unspecified M54.40 [facility] [address], [place] [address] -5441 Aug, Abscess and cellulitis L03.90 [facility] [address], [place] [address]- 2412 Aug, [facility] [address], [place] [address]- 6279 Aug, [facility] [address], [place] [address]- 8944 Jul, [facility] [address], [place] [address]- 7814 Jul, Diabetes type 2, controlled E11.9 [facility] [address] [address]- 0129 Jul, Diabetes type 2, controlled E11.9 [facility] [address] [place] [address] 64272- 8766 Jun, Diabetes type 2, controlled E11.9 ; Bilateral low back pain with sciatica, sciatica laterality unspecified M54.40 and Morbid obesity, unspecified obesity type E66.01 [facility] [id number] [place] [address] 30976- 2888 Jun, [facility] [id number] [place] [address] 55064- 5962 May, [facility] [address] 57783- 6346 Apr, [facility] [id number] [place] [address] 20110- 3333 Apr, [facility] [id number] [place] [address] 86911- 4008 Apr, [facility] [id number] [place] [address] 82409- 2410 Mar, [facility] [id number] [place] [address] 59835- 8712 Mar, [facility] [id number] [place] [address] 86457- 5323 Mar, [facility] [id number] [place] [address] 10357- 5147 Feb, [facility] [id number] [place] [address] 70042- 3586 Feb, [facility] [id number] [place] [address] 69082- 6370 Feb, [facility] [id number] [place] [address] 31278- 6430 Feb, [facility] [id number] [place] [address] 28585- 2171 Feb, Diabetes mellitus without mention of complication, type II or unspecified type, not stated as uncontrolled 250.00 [facility] [id number] [place] [address] 12056- 1272 Feb, [facility] [address] 0255 Feb, [facility] [id number] [address]- 6571 Jan, Diabetes mellitus without mention of complication, type II or unspecified type, not stated as uncontrolled 250.00 and Cellulitis and abscess 682.9 [facility] [id number] [address]- 2909 Jan, [facility] [id number] [place] [address] 91755- 6744 Jan, [facility] [id number] [place] [address] 731766- 7331 Jan, [facility] [id number] [place] [address] 889826- 2431 Dec, [facility] [address], [place] [address]- 3577 Dec, [facility] [address], [place] [address]- 3176 Dec, [facility] [address], [place] [address]- 7737 November, [facility] [address], [place] [address]- 8847 Oct, Shoulder pain, right 719.41 [facility] [address], [place] [address]- 0683 Oct, [facility] [address] 0660 Oct, [facility] [address] 3481 Sep, [facility] [address] 8553 Sep, [facility] [place] [facility] [address] [id number] [place] [address]- 5173 Sep, [facility] [place] [facility] [address] [id number] [place] [address]- 3608 Sep, [facility] [place] [facility] [address] [id number] [place] [address]- 8273 Sep, [facility] [place] [facility] [address] [id number] [place] [address]- 0662 Sep, [facility] [place] [facility] [address] [id number] [place] [address]- 8106 Sep, [facility] [place] [facility] [address] [id number] [place] [address]- 9655 Sep, [facility] [place] [facility] [address] [id number] [place] [address]- 6588 Aug, [facility] [place] [facility] [address] [id number] [place] [address]- 4375 Aug, [facility] [place] [facility] [address] [id number] [place] [address]- 7363 Aug, [facility] [place] [facility] [address] [id number] [place] [address]- 4519 Aug, [facility] [place] [facility] [address] [id number] [place] [address]- 7093 Jul, [facility] [place] [facility] [address] [id number] [place] [address]- 2490 Jul, [facility] [place] [facility] [address] [id number] [place] [address]- 9644 Jul, [facility] [place] [facility] [address] [id number] [place] [address]- 3090 Jul, [facility] [place] [facility] [address] [id number] [place] 5588 Jul, [facility] [place] [facility] [address] [id number] [place] [address]- 3788 Jul, [facility] [place] [facility] [address] [id number] [place] [address]- 6872 Jun, [facility] [place] [facility] [address] [id number] [place] [address]- 0085 24 Jun, 2014 [facility] [place] [facility] [address] [id number] [place] [address]- 9897 Jun, [facility] [place] [facility] [address] [id number] [place] [address]- 1060 19 Jun, 2014 [facility] [place] [facility] [address] [id number] [place] [address]- 7163 18 Jun, 2014 [facility] [place] [facility] [address] [id number] [place] [address]- 2367 Jun, [facility] [place] [facility] [address] [id number] [place] [address]- 9958 15 Jun, 2014 [facility] [place] [facility] [address] [id number] [place] [address]- 7562 15 Jun, 2014 [facility] [place] [facility] [address] [id number] [place] [address]- 2376 May, [facility] [place] [facility] [address] [id number] [place] [address]- 0764 May, [facility] [place] [facility] [address] [id number] [place] [address]- 3486 May, [facility] [place] [facility] [address] [id number] [address]- 0818 18 May, 2014 [facility] [place] [facility] [address] [id number] [place] [address]- 5457 17 May, 2014 [facility] [place] [facility] [address] [id number] [place] [address]- 5145 17 May, 2014 [facility] [place] [facility] [address] [id number] [place] [address]- 4970 20 Apr, 2014 [facility] [place] [facility] [address] [id number] [place] [address]- 4245 Apr, [facility] [place] [facility] [address] [id number] [place] [address]- 6060 Apr, [facility] [place] [facility] [address] [id number] [place] [address]- 3028 Apr, [facility] [place] [facility] [address] [id number] [place] [address]- 1863 Apr, [facility] [place] [facility] [address] [id number] [place] [address]- 4745 Apr, [facility] [place] [facility] [address] [id number] [place] [address]- 2192 Apr, [facility] [place] [facility] [address] [id number] [place] [address]- 2883 Mar, [facility] [place] [facility] [address] [id number] [place] [address]- 2466 Mar, [facility] [place] [facility] [address] [id number] [place] [address]- 4018 Mar, [facility] [place] [facility] [address] [id number] [place] [address]- 4024 Mar, [facility] [place] [facility] [address] [id number] [place] [address]- 9020 Feb, [facility] [place] [facility] [address] [id number] [place] [address]- 2808 Feb, [facility] [place] [facility] [address] [id number] [place] [address]- 0501 Feb, [facility] [place] [facility] [address] [id number] [place] [address]- 9111 Feb, [facility] [place] [facility] [address] [id number] [place] [address]- 9610 Feb, [facility] [place] [facility] [address] [id number] [place] [address]- 5281 Feb, [facility] [place] [facility] [address] [id number] [place] [address]- 4180 Jan, [facility] [place] [facility] [address] [id number] [place] [address]- 9846 Jan, [facility] [place] [facility] [address] [id number] [place] [address]- 1965 Jan, [facility] [place] [facility] [address] [id number] [place] [address]- 3809 Jan, [facility] [place] [facility] [address] [id number] [place] [address]- 9937 Jan, [facility] [place] [facility] [address] [id number] [place] [address]- 5349 Jan, [facility] [place] [facility] [address] [id number] [place] [address]- 7699 Jan, [facility] [place] [facility] [address] [id number] [place] [address]- 2376 Jan, [facility] [place] [facility] [address] [id number] [place] [address] Jan, [facility] [place] [facility] [address] [id number] [place] [address] Jan, [facility] [place] [facility] [address] [id number] [place] [address] Dec, [facility] [place] [facility] [address] [id number] [place] [address] Dec, [facility] [place] [facility] [address] [id number] [place] [address] Dec, [facility] [place] [facility] [address] [id number] [place] [address] Dec, [facility] [place] [facility] [address] [id number] [place] [address] November, [facility] [place] [facility] [address] [id number] [place] [address] November, [facility] [place] [facility] [address] [id number] [place] [address] November, [facility] [place] [facility] [address] [id number] [place] [address] November, [facility] [place] [facility] [address] [id number] [place] [address] Oct, [facility] [place] [facility] [address] [id number] [place] [address] Oct, [facility] [place] [facility] [address] [id number] [place] [address] Oct, [facility] [place] [facility] [address] [id number] [place] [address] Oct, [facility] [place] [facility] [address] [id number] [place] [address] Oct, [facility] [place] [facility] [address] [id number] [place] [address] Oct, [facility] [place] [facility] [address] [id number] [place] [address] Oct, [facility] [place] [facility] [address] [id number] [place] [address] Oct, [facility] [place] [facility] [address] [id number] [place] [address] Sep, [facility] [place] [facility] [address] [id number] [place] [address] Sep, [facility] [place] [facility] [address] [id number] [place] [address] Sep, [facility] [place] [facility] [address] [id number] [place] [address] Sep, [facility] [place] [facility] [address] [id number] [place] [address] Sep, [facility] [place] [facility] [address] [id number] [place] [address] Sep, [facility] [place] [facility] [address] [id number] [place] [address] Aug, [facility] [place] [facility] [address] [id number] [place] [address] Aug, [facility] [place] [facility] [address] [id number] [place] [address] Jul, [facility] [place] [facility] [address] [id number] [place] [address] Jul, [facility] [place] [facility] [address] [id number] [place] [address] Jul, [facility] [place] [facility] [address] [id number] [place] [address] Jul, [facility] [place] [facility] [address] [id number] [place] [address] Jul, [facility] [place] [facility] [address] [id number] [place] [address] Jul, [facility] [place] [facility] [address] [id number] [place] [address] Jul, [facility] [place] [facility] [address] [id number] [address] Jul, [facility] [place] [facility] [address] [id number], [place] [address] Jun, [facility] [place] [facility] [address] [id number] [place] [address] Jun, [facility] [place] [facility] [address] [id number] [place] [address] May, [facility] [place] [facility] [address] [id number], [place] [address] May, [facility] [place] [facility] [address] [id number], [place] [address] Apr, 2012 [facility] [place] [facility] [address] [id number] [place] [address] Apr, 2012 [facility] [place] [facility] [address] [address] [id number] [place] [address] Apr, [facility] [place] [facility] [address] [id number] [place] [address] Apr, 2012 [facility] [place] [facility] [address] [id number] [place] [address] Apr, 2012 [facility] [place] [facility] [address] [id number] [place] [address] Apr, [facility] [place] [facility] [address] [id number] [place] [address] Apr, [facility] [place] [facility] [address] [id number] [place] [address] Apr, [facility] [place] [facility] [address] [id number] [place] [address] Apr, [facility] [place] [facility] [address] [id number] [place] [address] Apr, [facility] [place] [facility] [address] [id number] [place] [address] Apr, [facility] [place] [facility] [address] [id number], [place] [address] Apr, [facility] [place] [facility] [address] [id number], [place] [address] Apr, [facility] [place] [facility] [address] [id number] [place] [address] Apr, [facility] [place] [facility] [address] [id number][place] [address] Apr, [facility] [place] [facility] [address] [id number][place] [address] Mar, [facility] [place] [facility] [address] [id number] [place] [address] 27 Mar, 2012 [facility] [place] [facility] [address] [id number] [place] [address] 47[address] 26 Mar, 2012 [facility] [place] [facility] [address] [id number] [place] [address] 3146 25 Mar, 2012 [facility] [place] [facility] [address] [id number] [place] [address] 4396 16 Mar, 2012 [facility] [place] [facility] [address] [id number] [place] [address]- 9392 03 Mar, 2013 [facility] [place] [facility] [address] [id number] [place] [address] 31 Jan, 2013 [facility] [place] [facility] [address] [id number] [place] [address] 16 Jan, 2013 [facility] [place] [facility] [address] [id number] [place] [address] Jan, [facility] [place] [facility] [address] [id number] [place] [address]661 Dec, [facility] [place] [facility] [address] [id number] [place] [address] 3687 13 Oct, 2012 [facility] [place] [facility] [address] [id number] [place] [address] 16 May, 2012 [facility] [place] [facility] [address] [id number] [place] [address] 3036 16 May, 2012 [facility] [place] [facility] [address] [id number] [place] [address]841 05 Jun, 2011 [facility] [place] [facility] [address] [id number] [place] [address] May, [facility] [place] [facility] [address] [id number] [place] [address] May, [facility] [place] [facility] [address] [id number] [place] [address] 9134 03 May, 2011 [facility] [place] [facility] [address] [id number] [place] [address] 6436 14 Apr, 2011 [facility] [place] [facility] [address] [id number] [place] [address] 13 Apr, 2011 [facility] [place] [facility] [address] [id number] [place] [address] 9610 17 Feb, 2011 [facility] [place] [facility] [address] [id number] [place] [address] 1632 16 Feb, 2011 [facility] [place] [facility] [address] [id number] [place] [address] 0910 10 Dec, 2010 [facility] [place] [facility] [address] [id number] [place] [address] 6816 12 Oct, 2010 [facility] [place] [facility] [address] [id number] [place] [address] 8323 19 Sep, 2010 [facility] [place] [facility] [address] [id number] [place] [address] 10 Sep, 2010 [facility] [place] [facility] [address] [id number] [place] [address] 2761 20 Jul, 2010 [facility] [place] [facility] [address] [id number] [place] [address] 3957 11 Jul, 2010 [facility] [place] [facility] [address] [id number] [place] [address] 2666 28 Jun, 2010 [facility] [place] [facility] [address] [id number] [place] [address]- 8565 23 Jun, 2010 [facility] [place] [facility] [address] [id number] [place] [address]- 7092 14 Jun, 2010 [facility] [place] [facility] [address] [id number] [place] [address]- 7202 14 Jun, 2010 [facility] [place] [facility] [address] [id number] [place] [address]- 5385 08 Jun, 2010 [facility] [place] [facility] [address] [id number] [place] [address] 2308 30 May, 2010 [facility] [place] [facility] [address] [id number] [place] [address] 8798 23 May, 2010 [facility] [place] [facility] [address] [id number] [place] [address] 17 May, 2010 [facility] [place] [facility] [address] [id number] [place] [address]- 5486 17 May, 2010 [facility] [place] [facility] [address] [id number] [place] [address]- 8641 17 May, 2010 [facility] [place] [facility] [address] [id number] [place] [address]- 4989 17 May, 2010 [facility] [place] [facility] [address] [id number] [place] [address]- 6039 23 Apr, 2010 [facility] [place] [facility] [address] [id number] [place] [address] 9906 14 Apr, 2010 [facility] [place] [facility] [address] [id number] [place] [address]- 9291 10 Mar, 2010 [facility] [place] [facility] [address] [id number] [place] [address]- 8990 10 Feb, 2010 [facility] [place] [facility] [address] [id number] [place] [address] 3036 17 Sep, 2009 [facility] [place] [facility] [address] [id number] [place] [address] Sep, [facility] [place] [facility] [address] [id number] [place] [address]- 9247 Aug, [facility] [place] [facility] [address] [id number] [place] [address] 0426 Jun, [facility] [place] [facility] [address] [id number] [place] [address] 1806 Jun, [facility] [place] [facility] [address] [id number] [address] May, [facility] [address] [facility] [id number] [place] [address] Dec, [facility] [address] [facility] [id number], [place] [address] Sep, IMMUNIZATIONS No Known Immunizations SOCIAL HISTORY Never Assessed REASON FOR VISIT Controlled Med Refill PLAN OF CARE VITAL SIGNS MEDICATIONS Medication Instructions Dosage Frequency Start Date End Date Duration Status Dextroamphetamine Sulfate 10 MG Orally Three times a day 2 tablets 8h Dec, 28 days Active RESULTS No Results PROCEDURES [...]
--- OUTSIDE RECORDS SUMMARY | 2018-06-27 07:26 | XMS REPORT ---
Author Author ARABELLA DIXON Organization [facility] Address [address] [place] [address] Care Team Providers Care Load Builder Name Role Phone ARABELLA DIXON Unavailable PROBLEMS Type Condition ICD9-CM Code NOW72-LW Code Onset Dates Condition Status SNOMED Code Problem Lumbago with sciatica, right side M54.41 Active 100421063891798 Problem Diabetes type 2, controlled E11.9 Active 28456914 Problem Other chronic pain G89.29 Active 02114471 Problem High risk medications (not anticoagulants) long-term use Z79.899 Active 307703920 Problem Obstructive sleep apnea syndrome G47.33 Active 12982218 Problem Lumbago with sciatica, left side M54.42 Active 179004221 Problem Bilateral low back pain with sciatica, sciatica laterality unspecified M54.40 Active 64328956 Problem Essential hypertension I10 Active 89619182 Problem Migraine without aura and without status migrainosus, not intractable G43.009 Active 488907601 Problem Morbid obesity due to excess calories E66.01 Active 616975387 Problem Mood disorder F39 Active 20106771 Problem Anxiety F41.9 Active 18096042 ALLERGIES Substance Reaction Event Type Date Status Wellbutrin Unknown Drug Allergy Jan, Active Effexor increases depression -JCriserRN Drug Allergy Jan, Active ENCOUNTERS Encounter Location Date Diagnosis [facility] [id number] [address] Mar, [facility] [id number] [address] Feb, Anxiety F41.9 [facility] [id number] [address] 240[address] Feb, Morbid obesity due to excess calories E66.01 [facility] [id number] [address] Feb, Bilateral low back pain with sciatica, sciatica laterality unspecified M54.40 and Diabetes type 2, controlled E11.9 [id number] [place] [address] 71993- 2504 Jan, Morbid obesity due to excess calories E66.01 [facility] [id number] [place] [address] 58994- 4020 Jan, [facility] [address] [address]- [address] Jan, Diabetes type 2, controlled E11.9 [id number] [place] [address] 58302- 8888 Jan, Diabetes type 2, controlled E11.9 [address] [id number] [place] [address] 59036- 2755 Jan, Bilateral low back pain with sciatica, sciatica laterality unspecified M54.40 and Dysfunction of both eustachian tubes H69.83 [place] [id number] [place] [address] 73814- 1110 Jan, Morbid obesity due to excess calories E66.01 [place] [id number] [place] [address] 15395- 4766 Dec, Diabetes type 2, controlled E11.9 [address] [address] [id number] [place] [address] 63916- 8624 Dec, Morbid obesity due to excess calories E66.01 ; Essential hypertension I10 ; Tobacco abuse Z72.0 and Tobacco abuse counseling Z71.6 [place] [id number] [place] [address] 06364- 0041 November, Diabetes type 2, controlled E11.9 [place] [id number] [place] [address] 52745- 0373 Oct, Diabetes type 2, controlled E11.9 [address] [id number] [place] [address] 14905- 5856 Sep, Diabetes type 2, controlled E11.9 [facility] [address] [address] 37[address] Sep, [place] [id number] [place] [address] 59015- 4132 Aug, Diabetes type 2, controlled E11.9 and Morbid obesity due to excess calories E66.01 [place] [id number] [place] [address] 69031- 3852 Jul, Anxiety F41.9 [place] [id number] [place] [address] 96389- 0725 Jul, [place] [id number] [place] [address] 25010- 8396 Jul, Anxiety F41.9 ; Mood disorder F39 ; Morbid obesity due to excess calories E66.01 and Diabetes type 2, controlled E11.9 [address] [id number] [place] [address] 84419- 0955 Jun, Anxiety F41.9 [place] [id number] [place] [address] 97832- 6531 Jun, Anxiety F41.9 ; Morbid obesity due to excess calories E66.01 and Diabetes type 2, controlled E11.9 [address] [address] [address] 0[address] May, Migraine without aura and without status migrainosus, not intractable G43.009 ; Diabetes type 2, controlled E11.9 and Morbid obesity due to excess calories E66.01 [address] [address] 1354 Apr, Migraine without aura and without status migrainosus, not intractable G43.009 ; Diabetes type 2, controlled E11.9 and Morbid obesity due to excess calories E66.01 [address] [address] [address] 7103 Apr, Diabetes type 2, controlled E11.9 and Morbid obesity due to excess calories E66.01 [facility] [address] [address]- 5942 Mar, Diabetes type 2, controlled E11.9 and Morbid obesity due to excess calories E66.01 [facility] [id number] [place] [address] 39337- 4597 Mar, Diabetes type 2, controlled E11.9 and Mood disorder F39 [facility] [id number] [place] [address] 06881- 5619 Feb, Morbid obesity due to excess calories E66.01 and Diabetes type 2, controlled E11.9 [place] [id number] [place] [address] 42977- 0938 Jan, Diabetes type 2, controlled E11.9 and Morbid obesity due to excess calories E66.01 [place] [id number] [place] [address] 02961- 2454 Dec, Diabetes type 2, controlled E11.9 and Morbid obesity due to excess calories E66.01 [facility] [id number] [place] [address] 82552- 6770 Dec, Morbid obesity due to excess calories E66.01 [place] [id number] [place] [address] 31626- 0077 November, Diabetes type 2, controlled E11.9 and Morbid obesity due to excess calories E66.01 [place] [id number] [place] [address] 16483- 2645 November, Anxiety F41.9 and Injury of right foot, initial encounter S99.921A [place] [id number] [place] [address] 38912- 8163 November, Diabetes type 2, controlled E11.9 and Morbid obesity due to excess calories E66.01 [facility] [address] [address]- 8[address] November, [facility] [id number] [place] [address]- [address]80 Oct, Family history of brain aneurysm Z82.49 and Migraine without aura and without status migrainosus, not intractable G43.009 [facility] [id number] [place] [address] 49458- 4576 Oct, Diabetes type 2, controlled E11.9 [facility] [id number] [place] [address] 54856- 9853 Oct, Morbid obesity due to excess calories E66.01 ; Family history of brain aneurysm Z82.49 and Migraine without aura and without status migrainosus, not intractable G43.009 [place] [address] 32461- 1708 Oct, Diabetes type 2, controlled E11.9 and Morbid obesity due to excess calories E66.01 [place] [id number] [place] [address] 71659- 6880 Sep, [facility] [id number] [place] [address] 55039- 1341 Sep, Diabetes type 2, controlled E11.9 [facility] [id number] [place] [address] 79778- 9886 Sep, Morbid obesity due to excess calories E66.01 [place] [id number] [place] [address] 14714- 0813 Aug, Exposure to hepatitis C Z20.5 [facility] [id number] [place] [address] 88247- 2996 Aug, Diabetes type 2, controlled E11.9 [place] [id number] [place] [address] 72080- 0215 Jul, Exposure to hepatitis C Z20.5 [facility] [id number] [place] [address] 86238- 0802 Jul, Exposure to hepatitis C Z20.5 [facility] [address] [place] [address]- 5213 Jul, [facility] [address] [address]- 5083 Jul, Diabetes type 2, controlled E11.9 [facility] [address] [address]- 6553 Jun, [facility] [id number] [place] [address] 33393- 4270 Jun, Diabetes type 2, controlled E11.9 ; Pain of left foot M79.672 and Pain in right foot M79.671 [facility] [id number] [place] [address] 31572- 0982 May, [facility] [id number] [place] [address] 65302- 3635 Apr, [facility] [id number] [place] [address] 74077- 9293 Apr, [facility] [id number] [place] [address] 06949- 4911 Mar, [facility] [id number] [place] [address] 65568- 5769 Feb, [facility] [address] [address]- 8503 Feb, [facility] [id number] [place] [address] 85143- 3130 Jan, [facility] [id number] [place] [address] 88630- 2978 Dec, Diabetes type 2, controlled E11.9 ; 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 and Abscess, abdomen K65.1 [facility] [address] [address]- 9180 Dec, Shoulder pain, right 719.41 [facility] [id number] [place] [address] 71167- 6139 November, [facility] [address] [address]- 0422 November, [facility] [id number] [place] [address] 60221- 7740 Oct, [facility] [address] [address]- 6018 Sep, [facility] [id number] [place] [address] 48583- 4050 Sep, [facility] [id number] [place] [address] 03776 -7612 Aug, [facility] [id number] [place] [address] 19445- 2308 Aug, [facility] [address] [place] [address] 85223- 8639 Aug, Cellulitis, unspecified L03.90 ; Cutaneous abscess, unspecified L02.91 ; Diabetes type 2, controlled E11.9 ; Migraine G43.909 and Bilateral low back pain with sciatica, sciatica laterality unspecified M54.40 [facility] [address] [address]75 Aug, Abscess and cellulitis L03.90 [facility] [address] [address]- 7087 Aug, [facility] [id number] [place] [address] 26857- 0058 Aug, [facility] [address] [address]- 4263 Jul, [facility] [id number] [place] [address] 76248- 9949 Jul, Diabetes type 2, controlled E11.9 [facility] [address] [address]- 2587 Jul, Diabetes type 2, controlled E11.9 [facility] [address] [address]- 4456 Jun, Diabetes type 2, controlled E11.9 ; Bilateral low back pain with sciatica, sciatica laterality unspecified M54.40 and Morbid obesity, unspecified obesity type E66.01 [facility] [id number] [place] [address] 94574- 0909 Jun, [facility] [id number] [place] [address] 11340- 9412 May, [facility] [id number] [place] [address] 35480- 7300 Apr, [facility] [id number] [place] [address] 00527- 9928 Apr, [facility] [id number] [place] [address] 92968- 0873 Apr, [facility] [id number] [place] [address] 29030- 6137 Mar, [facility] [id number] [place] [address] 52563- 1695 Mar, [facility] [id number] [place] [address] 27603- 4355 Mar, [facility] [id number] [place] [address] 24590- 3133 Feb, [facility] [id number] [place] [address] 11275- 5981 Feb, [facility] [id number] [place] [address] 53278- 2585 Feb, [facility] [id number] [place] [address] 20237- 8996 Feb, [facility] [id number] [address]- 9744 Feb, Diabetes mellitus without mention of complication, type II or unspecified type, not stated as uncontrolled 250.00 [facility] [address] [address]- 8324 Feb, [facility] [id number] [place] [address] 92771- 1733 Feb, [facility] [id number] [place] [address] 676156- 4225 Jan, Diabetes mellitus without mention of complication, type II or unspecified type, not stated as uncontrolled 250.00 and Cellulitis and abscess 682.9 [facility] [address] [address]- 8642 Jan, [facility] [id number] [place] [address] 03637261- 4760 Jan, [facility] [id number] [place] [address] 436349- 2313 Jan, [facility] [id number] [address]- 2190 Dec, [facility] [id number] [place] [address] 43055- 0284 Dec, [facility] [id number] [place] [address] [id number]- 2074 Dec, [facility] [address] [address]- 6116 November, [facility] [id number] [address]- 3272 Oct, Shoulder pain, right 719.41 [facility] [address] [address]- 7719 Oct, [facility] [id number] 3076 Oct, [facility] [address] [address] Sep, [facility] [place] [facility] [address] [id number] [place] [address]- 3873 Sep, [facility] [place] [facility] [address] [id number] [place] [address]- 9469 Sep, [facility] [place] [facility] [address] [id number] [place] [address]- 1176 Sep, [facility] [place] [facility] [address] [id number] [place] [address]- 7185 Sep, [facility] [place] [facility] [address] [id number] [place] [address]- 5728 Sep, [facility] [place] [facility] [address] [id number] [place] [address]- 1831 Sep, [facility] [place] [facility] [address] [id number] [place] [address]- 3491 Sep, [facility] [place] [facility] [address] [id number] [place] [address]- 5860 Aug, [facility] [place] [facility] [address] [id number] [place] [address]- 1111 Aug, [facility] [place] [facility] [address] [id number] [place] [address]- 5218 Aug, [facility] [place] [facility] [address] [id number] [place] [address]- 3554 Aug, [facility] [place] [facility] [address] [id number] [place] [address]- 0643 Jul, [facility] [place] [facility] [address] [id number] [place] [address]- 2669 Jul, [facility] [place] [facility] [address] [id number] [place] [address]- 1534 Jul, [facility] [place] [facility] [address] [id number] [place] [address]- 9490 Jul, [facility] [place] [facility] [address] [id number] [place] [address]- 1788 Jul, [facility] [place] [facility] [address] [id number] [place] [address]- 7056 Jul, [facility] [place] [facility] [address] [id number] [place] [address]- 5035 Jun, [facility] [place] [facility] [address] [id number] [place] [address]- 8934 Jun, [facility] [place] [facility] [address] [id number] [place] [address]- 2552 Jun, [facility] [place] [facility] [address] [id number] [place] [address]- 0033 Jun, [facility] [place] [facility] [address] [id number] [place] [address]- 7432 Jun, [facility] [place] [facility] [address] [id number] [place] [address]- 5757 Jun, [facility] [place] [facility] [address] [id number] [place] [address]- 0092 Jun, [facility] [place] [facility] [address] [id number] [place] [address]- 4837 Jun, [facility] [place] [facility] [address] [id number] [place] [address]- 3255 May, [facility] [place] [facility] [address] [id number] [place] [address]- 1213 May, [facility] [place] [facility] [address] [id number] [place] [address]- 5213 May, [facility] [place] [facility] [address] [id number] [place] [address]- 8904 May, [facility] [place] [facility] [address] [id number] [place] [address]- 3042 May, [facility] [place] [facility] [address] [id number] [place] [address]- 4527 May, [facility] [place] [facility] [address] [id number] [place] [address]- 0456 Apr, [facility] [place] [facility] [address] [id number] [place] [address]- 5273 Apr, [facility] [place] [facility] [address] [id number] [place] [address]- 3316 Apr, [facility] [place] [facility] [address] [id number] [place] [address]- 0249 Apr, [facility] [place] [facility] [address] [id number] [place] [address]- 3329 Apr, [facility] [place] [facility] [address] [id number] [place] [address]- 7928 Apr, [facility] [place] [facility] [address] [id number] [place] [address]- 2376 Apr, [facility] [place] [facility] [address] [id number] [place] [address]- 4988 Mar, [facility] [place] [facility] [address] [id number] [place] [address]- 2677 Mar, [facility] [place] [facility] [address] [id number] [place] [address]- 2887 Mar, [facility] [place] [facility] [address] [id number] [place] [address]- 6230 Mar, [facility] [place] [facility] [address] [id number] [place] [address]- 3213 Feb, [facility] [place] [facility] [address] [id number] [place] [address]- 7894 Feb, [facility] [place] [facility] [address] [id number] [place] [address]- 1054 Feb, [facility] [place] [facility] [address] [id number] [place] [address]- 9023 Feb, [facility] [place] [facility] [address] [id number] [place] [address]- 7935 Feb, [facility] [place] [facility] [address] [id number] [place] [address] Feb, [facility] [place] [facility] [address] [id number] [place] [address] Jan, [facility] [place] [facility] [address] [id number] [place] [address] Jan, [facility] [place] [facility] [address] [id number] [place] [address] Jan, [facility] [place] [facility] [address] [id number] [place] [address] Jan, [facility] [place] [facility] [address] [id number] [place] [address] Jan, [facility] [place] [facility] [address] [id number] [place] [address] Jan, [facility] [place] [facility] [address] [id number] [place] [address] Jan, [facility] [place] [facility] [address] [id number] [place] [address] Jan, [facility] [place] [facility] [address] [id number] [place] [address] Jan, [facility] [place] [facility] [address] [id number] [place] [address] Jan, [facility] [place] [facility] [address] [id number] [place] [address] Dec, [facility] [place] [facility] [address] [id number] [place] [address] Dec, [facility] [place] [facility] [address] [id number] [place] [address] Dec, [facility] [place] [facility] [address] [id number] [place] [address] Dec, [facility] [place] [facility] [address] [id number] [place] [address] November, [facility] [place] [facility] [address] [id number] [place] [address] November, [facility] [place] [facility] [address] [id number] [place] [address] November, [facility] [place] [facility] [address] [id number] [place] [address] November, [facility] [place] [facility] [address] [id number] [place] [address] Oct, [facility] [place] [facility] [address] [id number] [place] [address] Oct, [facility] [place] [facility] [address] [id number] [place] [address] Oct, [facility] [place] [facility] [address] [id number] [place] [address] Oct, [facility] [place] [facility] [address] [id number] [place] [address] Oct, [facility] [place] [facility] [address] [id number] [place] [address] Oct, [facility] [place] [facility] [address] [id number] [place] [address] Oct, [facility] [place] [facility] [address] [id number] [place] [address] Oct, [facility] [place] [facility] [address] [id number] [place] [address] Sep, [facility] [place] [facility] [address] [id number] [place] [address] Sep, [facility] [place] [facility] [address] [id number] [place] [address] Sep, [facility] [place] [facility] [address] [id number] [place] [address] Sep, [facility] [place] [facility] [address] [id number] [place] [address] Sep, [facility] [place] [facility] [address] [id number] [place] [address] Sep, [facility] [place] [facility] [address] [id number] [place] [address] Aug, [facility] [place] [facility] [address] [id number] [place] [address] Aug, [facility] [place] [facility] [address] [id number] [place] [address] Jul, [facility] [place] [facility] [address] [id number] [place] [address] Jul, [facility] [place] [facility] [address] [id number] [place] [address] Jul, [facility] [place] [facility] [address] [id number] [place] [address] Jul, [facility] [place] [facility] [address] [id number] [place] [address] Jul, [facility] [place] [facility] [address] [id number] [place] [address] Jul, [facility] [place] [facility] [address] [id number] [place] [address] Jul, [facility] [place] [facility] [address] [id number] [place] [address] Jul, [facility] [place] [facility] [address] [id number] [place] [address] Jun, [facility] [place] [facility] [address] [id number] [place] [address] Jun, [facility] [place] [facility] [address] [id number] [place] [address] May, [facility] [place] [facility] [address] [id number] [place] [address] May, [facility] [place] [facility] [address] [id number] [place] [address] Apr, 2012 [facility] [place] [facility] [address] [id number] [place] [address] Apr, [facility] [place] [facility] [address] [id number] [place] [address] Apr, [facility] [place] [facility] [address] [id number] [place] [address] Apr, 2012 [facility] [place] [facility] [address] [id number] [place] [address] 7880 Apr, [facility] [place] [facility] [address] [id number] [place] [address] Apr, [facility] [place] [facility] [address] [id number] [place] [address] Apr, [facility] [place] [facility] [address] [id number] [place] [address] 8490 Apr, [facility] [place] [facility] [address] [id number] [place] [address] Apr, [facility] [place] [facility] [address] [id number] [place] [address] Apr, [facility] [place] [facility] [address] [id number] [place] [address] Apr, [facility] [place] [facility] [address] [id number] [place] [address] Apr, [facility] [place] [facility] [address] [id number] [place] [address] Apr, [facility] [place] [facility] [address] [id number] [place] [address] Apr, [facility] [place] [facility] [address] [facility] [id number] [place] [address] Apr, [facility] [place] [facility] [address] [id number] [place] [address] 27 Mar, 2012 [facility] [place] [facility] [address] [id number] [place] [address] 27 Mar, 2012 [facility] [place] [facility] [address] [id number] [place] [address]46 26 Mar, 2012 [facility] [place] [facility] [address] [id number] [place] [address] 4626 25 Mar, 2012 [facility] [place] [facility] [address] [id number] [place] [address]268 16 Mar, 2012 [facility] [place] [facility] [address] [id number] [place] [address] 8[address] 03 Mar, 2013 [facility] [place] [facility] [address] [id number] [place] [address] 31 Jan, 2013 [facility] [place] [facility] [address] [id number] [place] [address] 16 Jan, 2013 [facility] [place] [facility] [address] [id number] [place] [address] Jan, [facility] [place] [facility] [address] [id number] [place] [address]369 13 Dec, 2012 [facility] [place] [facility] [address] [id number] [place] [address] 9867 13 Oct, 2012 [facility] [place] [facility] [address] [id number] [place] [address] 70[address] 16 May, 2012 [facility] [place] [facility] [address] [id number] [place] [address] 16 May, 2012 [facility] [place] [facility] [address] [id number] [place] [address]- [address]75 05 Jun, 2011 [facility] [place] [facility] [address] [id number] [place] [address] 34[address] May, [facility] [place] [facility] [address] [id number] [place] [address] 4726 11 May, 2011 [facility] [place] [facility] [address] [id number] [place] [address]- 3585 03 May, 2011 [facility] [place] [facility] [address] [id number] [place] [address] 5410 14 Apr, 2011 [facility] [place] [facility] [address] [id number] [place] [address] 4[address] 13 Apr, 2011 [facility] [place] [facility] [address] [id number] [place] [address] 0631 17 Feb, 2011 [facility] [place] [facility] [address] [id number] [place] [address]261 16 Feb, 2011 [facility] [place] [facility] [address] [id number] [place] [address]28 Dec, [facility] [place] [facility] [address] [id number] [place] [address] Oct, [facility] [place] [facility] [address] [id number] [place] [address]- 6[address] 19 Sep, 2010 [facility] [place] [facility] [address] [id number] [place] [address] Sep, [facility] [place] [facility] [address] [id number] [place] [address]- 9240 20 Jul, 2010 [facility] [place] [facility] [address] [id number] [place] [address] 73[address] Jul, [facility] [place] [facility] [address] [id number] [place] [address] 28 Jun, 2010 [facility] [place] [facility] [address] [id number] [place] [address]- [address] 23 Jun, 2010 [facility] [place] [facility] [address] [id number] [place] [address]- 3528 14 Jun, 2010 [facility] [place] [facility] [address] [id number] [place] [address]- 2848 14 Jun, 2010 [facility] [place] [facility] [address] [id number] [place] [address]- 2478 08 Jun, 2010 [facility] [address] [id number] [place] [address]- 5446 30 May, 2010 [facility] [place] [facility] [address] [id number] [place] [address]- 6026 23 May, 2010 [facility] [place] [facility] [address] [id number] [place] [address]- 3626 17 May, 2010 [facility] [place] [facility] [address] [id number] [place] [address]- 8228 17 May, 2010 [facility] [place] [facility] [address] [id number] [place] [address]- 0116 17 May, 2010 [facility] [place] [facility] [address] [id number] [place] [address]- 8992 May, [facility] [place] [facility] [address] [id number] [place] [address]- 7119 23 Apr, 2010 [facility] [place] [facility] [address] [id number] [place] [address]- 6191 14 Apr, 2010 [facility] [place] [facility] [address] [id number] [place] [address]- 2344 10 Mar, 2010 [facility] [place] [facility] [address] [id number] [place] [address]- 4898 Feb, [facility] [place] [facility] [address] [id number] [place] [address]- 1019 17 Sep, 2009 [facility] [place] [facility] [address] [id number] [place] [address] 2544 Sep, [facility] [place] [facility] [address] [id number] [place] [address]- 9859 18 Aug, 2009 [facility] [place] [facility] [address] [id number] [place] [address] 2546 Jun, [facility] [place] [facility] [address] [id number] [place] [address]- 6285 Jun, [facility] [address] [facility] [id number] [place] [address] May, [facility] [address] [facility] [id number] [place] [address] Dec, [facility] [address] [facility] [id number] [place] [address] Sep, IMMUNIZATIONS No Known Immunizations SOCIAL HISTORY Never Assessed REASON FOR VISIT Pain management (chronic) FERMIN, -Armen SIMS , PT is having trouble hearing, the hearing issue started today PLAN OF CARE Activity Details Pending Test PDM - AMPHETAMINES W/ REFLEX d/l ISOMERS VITAL SIGNS Height 69 in 2018-01-18 Weight 274 lbs 2018-01-18 Temperature 98.2 degrees Fahrenheit 2018-01-18 Heart Rate 107 bpm 2018-01-18 Respiratory Rate 20 2018-01-18 Oximetry on room air:97 % 2018-01-18 BMI 40.46 kg/m2 2018-01-18 Blood pressure systolic 138 mmHg 2018-01-18 Blood pressure diastolic 80 mmHg 2018-01-18 MEDICATIONS Medication Instructions Dosage Frequency Start Date End Date Duration Status Ibuprofen 200 MG Orally every 6 hrs 1 tablet as needed 6h Active Ativan 0.5 MG Orally every 6 hrs 1 tablet as needed 6h Mar, 28 days Active Simvastatin 20 mg Orally Once a day 1 tablet in the evening 24h Jul, 30 day(s) Not-Taking Norvasc 10 mg Orally Once a day 1 tablet 24h Dec, 30 day(s) Active Albuterol Sulfate HFA 108 (90 Base) MCG/ACT Inhalation every 6 hrs 2 puffs as needed 6h 17 Active Gillett 5-325 MG Orally 4 times a day 1 tablet as needed 6h Jan, 28 days Active PredniSONE 20 mg Orally Once a day 2 tablets 24h Jan, Jan, 05 days Active Cetirizine HCl 10 mg Orally Once a day 1 tablet 24h Dec, 30 day (s) Active Tessalon Perles 100 mg Orally Three times a day 1 capsule as needed 8h 10 Active Dextroamphetamine Sulfate 10 MG Orally Three times a day 2 tablets 8h 13 Dec, 2017 28 days Active Vitamins 0.8 MG Orally Once a day 1 tablet 24h Active RESULTS No Results PROCEDURES Procedure Date Ordered Result Body Site 09 PANEL (PROFILE 1) January 18, 2018 DRUG SCREEN AMPHETAMINES /January 18, 2018 INSTRUCTIONS MEDICATIONS ADMINISTERED No Known Medications MEDICAL (GENERAL) HISTORY Type Description Date Medical History Type II diabetic Medical History hypertension Medical History MRSA Medical History PCOS Medical History 3 slipped disk in back. Surgical History knee surgery Hospitalization History surgeries Hospitalization History [facility] Pt[facility] unable to walk after waking up from a nap. 12/2015
--- OUTSIDE RECORDS SUMMARY | 2018-06-27 07:27 | XMS REPORT ---
Author Author ARABELLA DIXON Organization [facility] Address [address] [place] [address] Care Team Providers Care Canvas Baster Jumpbasting Name Role Phone ARABELLA DIXON Unavailable PROBLEMS Type Condition ICD9-CM Code AFR42-EW Code Onset Dates Condition Status SNOMED Code Problem Lumbago with sciatica, right side M54.41 Active 905159369573160 Problem Diabetes type 2, controlled E11.9 Active 82188317 Problem Other chronic pain G89.29 Active 02901477 Problem High risk medications (not anticoagulants) long-term use Z79.899 Active 856737377 Problem Obstructive sleep apnea syndrome G47.33 Active 28922822 Problem Lumbago with sciatica, left side M54.42 Active 092925562 Problem Bilateral low back pain with sciatica, sciatica laterality unspecified M54.40 Active 57918073 Problem Essential hypertension I10 Active 68449271 Problem Migraine without aura and without status migrainosus, not intractable G43.009 Active 390709794 Problem Morbid obesity due to excess calories E66.01 Active 029820476 Problem Mood disorder F39 Active 22593684 Problem Anxiety F41.9 Active 76236197 ALLERGIES Substance Reaction Event Type Date Status Wellbutrin Unknown Drug Allergy Dec, Active Effexor increases depression -JCriserRN Drug Allergy Dec, Active ENCOUNTERS Encounter Location Date Diagnosis [facility] [id number] [address] Mar, [facility] [id number] [address] 76[address] Feb, Anxiety F41.9 [facility] [id number] [address] 7777 Feb, Morbid obesity due to excess calories E66.01 [facility] [id number] [address] 0910 Feb, Bilateral low back pain with sciatica, sciatica laterality unspecified M54.40 and Diabetes type 2, controlled E11.9 [id number] [place] [address] 51280- 4509 Jan, Morbid obesity due to excess calories E66.01 [facility] [id number] [place] [address] 91624- 6839 Jan, [facility] [address] [address]- 9[address] Jan, Diabetes type 2, controlled E11.9 [address] [id number] [place] [address] 18776- 9444 Jan, Diabetes type 2, controlled E11.9 [place] [id number] [place] [address] 79352- 2739 Jan, Bilateral low back pain with sciatica, sciatica laterality unspecified M54.40 and Dysfunction of both eustachian tubes H69.83 [place] [id number] [place] [address] 72955- 2578 Jan, Morbid obesity due to excess calories E66.01 [place] [id number] [place] [address] 78597- 7188 Dec, Diabetes type 2, controlled E11.9 [place] [id number] [place] [address] 72250- 4237 Dec, Morbid obesity due to excess calories E66.01 ; Essential hypertension I10 ; Tobacco abuse Z72.0 and Tobacco abuse counseling Z71.6 [place] [id number] [place] [address] 76969- 5298 November, Diabetes type 2, controlled E11.9 [place] [id number] [place] [address] 31827- 4407 Oct, Diabetes type 2, controlled E11.9 [place] [id number] [place] [address] 27842- 8431 Sep, Diabetes type 2, controlled E11.9 [facility] [address] [address]- 6[address] Sep, [place] [id number] [place] [address] 23298- 7637 Aug, Diabetes type 2, controlled E11.9 and Morbid obesity due to excess calories E66.01 [place] [id number] [place] [address] 51689- 2526 Jul, Anxiety F41.9 [place] [id number] [place] [address] 71619- 7779 Jul, [place] [id number] [place] [address] 69181- 9868 Jul, Anxiety F41.9 ; Mood disorder F39 ; Morbid obesity due to excess calories E66.01 and Diabetes type 2, controlled E11.9 [place] [id number] [place] [address] 31856- 3103 Jun, Anxiety F41.9 [place] [id number] [place] [address] 83997- 5750 Jun, Anxiety F41.9 ; Morbid obesity due to excess calories E66.01 and Diabetes type 2, controlled E11.9 [address] [address] [address] 2501 May, Migraine without aura and without status migrainosus, not intractable G43.009 ; Diabetes type 2, controlled E11.9 and Morbid obesity due to excess calories E66.01 [place] [address] [address]- 3841 Apr, Migraine without aura and without status migrainosus, not intractable G43.009 ; Diabetes type 2, controlled E11.9 and Morbid obesity due to excess calories E66.01 [place] [address] [address]- 0194 Apr, Diabetes type 2, controlled E11.9 and Morbid obesity due to excess calories E66.01 [facility] [address] [address]- 4251 Mar, Diabetes type 2, controlled E11.9 and Morbid obesity due to excess calories E66.01 [facility] [id number] [place] [address] 20343- 0884 Mar, Diabetes type 2, controlled E11.9 and Mood disorder F39 [facility] [id number] [place] [address] 46538- 1168 Feb, Morbid obesity due to excess calories E66.01 and Diabetes type 2, controlled E11.9 [place] [id number] [place] [address] 80103- 4068 Jan, Diabetes type 2, controlled E11.9 and Morbid obesity due to excess calories E66.01 [place] [id number] [place] [address] 88945- 5310 Dec, Diabetes type 2, controlled E11.9 and Morbid obesity due to excess calories E66.01 [facility] [id number] [place] [address] 10037- 0822 Dec, Morbid obesity due to excess calories E66.01 [place] [id number] [place] [address] 23116- 6367 November, Diabetes type 2, controlled E11.9 and Morbid obesity due to excess calories E66.01 [place] [id number] [place] [address] 14366- 3779 November, Anxiety F41.9 and Injury of right foot, initial encounter S99.921A [place] [id number] [place] [address] 32313- 8657 November, Diabetes type 2, controlled E11.9 and Morbid obesity due to excess calories E66.01 [facility] [address] [address]- 8017 November, [facility] [address] [place] [address]- 5191 Oct, Family history of brain aneurysm Z82.49 and Migraine without aura and without status migrainosus, not intractable G43.009 [facility] [id number] [place] [address] 09493- 1510 Oct, Diabetes type 2, controlled E11.9 [facility] [id number] [place] [address] 95854- 9619 Oct, Morbid obesity due to excess calories E66.01 ; Family history of brain aneurysm Z82.49 and Migraine without aura and without status migrainosus, not intractable G43.009 [place] [address] [address]- 5749 Oct, Diabetes type 2, controlled E11.9 and Morbid obesity due to excess calories E66.01 [place] [id number] [place] [address] 70535- 0714 Sep, [facility] [id number] [place] [address] 83467- 8175 Sep, Diabetes type 2, controlled E11.9 [facility] [id number] [place] [address] 80472- 6191 Sep, Morbid obesity due to excess calories E66.01 [place] [id number] [place] [address] 73195- 1088 Aug, Exposure to hepatitis C Z20.5 [facility] [id number] [place] [address] 18968- 6567 Aug, Diabetes type 2, controlled E11.9 [place] [id number] [place] [address] 99874- 3520 Jul, Exposure to hepatitis C Z20.5 [facility] [id number] [place] [address] 85748- 9064 Jul, Exposure to hepatitis C Z20.5 [facility] [address] [place] [address]- 8767 Jul, [facility] [address] [address]- 6341 Jul, Diabetes type 2, controlled E11.9 [facility] [address] [address]- 8290 Jun, [facility] [id number] [place] [address] 21114- 2047 Jun, Diabetes type 2, controlled E11.9 ; Pain of left foot M79.672 and Pain in right foot M79.671 [facility] [id number] [place] [address] 28326- 2357 May, [facility] [id number] [place] [address] 07821- 6957 Apr, [facility] [id number] [place] [address] 06953- 6540 Apr, [facility] [id number] [place] [address] 06748- 6077 Mar, [facility] [id number] [place] [address] 25469- 4241 Feb, [facility] [address] [address]- 1228 Feb, [facility] [id number] [place] [address] 64780- 1335 Jan, [facility] [id number] [place] [address] 60031- 7772 Dec, Diabetes type 2, controlled E11.9 ; 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 and Abscess, abdomen K65.1 [facility] [address] [address]- 6898 Dec, Shoulder pain, right 719.41 [facility] [id number] [place] [address] 77911- 5921 November, [facility] [address] [address]- 4901 November, [facility] [address] [place] [address] 50910- 2574 Oct, [facility] [address] [address]- 1939 Sep, [facility] [id number] [place] [address] 37732- 9205 Sep, [facility] [address] [place] [address] 93622 -6129 Aug, [facility] [id number] [place] [address] 29970- 6994 Aug, [facility] [address] [place] [address] 92513- 6709 Aug, Cellulitis, unspecified L03.90 ; Cutaneous abscess, unspecified L02.91 ; Diabetes type 2, controlled E11.9 ; Migraine G43.909 and Bilateral low back pain with sciatica, sciatica laterality unspecified M54.40 [facility] [address] [address]8579 Aug, Abscess and cellulitis L03.90 [facility] [address] [address]- 4925 Aug, [facility] [address] [place] [address] 63055- 4818 Aug, [facility] [address] [address]- 0700 Jul, [facility] [address] [place] [address] 77445- 6045 Jul, Diabetes type 2, controlled E11.9 [facility] [address] [address]- 3552 Jul, Diabetes type 2, controlled E11.9 [facility] [address] [address]- 7240 Jun, Diabetes type 2, controlled E11.9 ; Bilateral low back pain with sciatica, sciatica laterality unspecified M54.40 and Morbid obesity, unspecified obesity type E66.01 [facility] [id number] [place] [address] 46116- 2315 Jun, [facility] [id number] [place] [address] 39163- 8943 May, [facility] [id number] [place] [address] 93268- 2001 Apr, [facility] [id number] [place] [address] 07767- 4693 Apr, [facility] [id number] [place] [address] 09663- 0709 Apr, [facility] [id number] [place] [address] 93084- 2825 Mar, [facility] [id number] [place] [address] 88153- 8816 Mar, [facility] [id number] [place] [address] 37483- 6548 Mar, [facility] [address] [place] [address] 50427- 1483 Feb, [facility] [id number] [place] [address] 91915- 7182 Feb, [facility] [id number] [place] [address] 94290- 4113 Feb, [facility] [id number] [place] [address] 59009- 0598 Feb, [facility] [address] [address]- 1226 Feb, Diabetes mellitus without mention of complication, type II or unspecified type, not stated as uncontrolled 250.00 [facility] [address] [address]- 1124 Feb, [facility] [id number] [place] [address] 72851- 6442 Feb, [facility] [id number] [place] [address] 290357- 5418 Jan, Diabetes mellitus without mention of complication, type II or unspecified type, not stated as uncontrolled 250.00 and Cellulitis and abscess 682.9 [facility] [address] [address]- 5053 Jan, [facility] [id number] [place] [address] 62588471- 1827 Jan, [facility] [id number] [place] [address] 566002- 3855 Jan, [facility] [address] [address]- 5595 Dec, [facility] [address] [place] [address] 83906- 2931 Dec, [facility] [id number] [place] [address] 75358682- 7057 Dec, [facility] [address] [address]- 6487 November, [facility] [address] [address] 4189 Oct, Shoulder pain, right 719.41 [facility] [address] [address]- 5415 Oct, [facility] [address] 1821 Oct, [facility] [address] 1531 Sep, [facility] [place] [facility] [address] [id number] [place] [address]- 1597 Sep, [facility] [place] [facility] [address] [id number] [place] [address]- 4312 Sep, [facility] [place] [facility] [address] [id number] [place] [address]- 2639 Sep, [facility] [place] [facility] [address] [id number] [place] [address]- 4803 Sep, [facility] [place] [facility] [address] [id number] [place] [address]- 1881 Sep, [facility] [place] [facility] [address] [id number] [place] [address]- 5793 Sep, [facility] [place] [facility] [address] [id number] [place] [address]- 9131 Sep, [facility] [place] [facility] [address] [id number] [place] [address]- 2430 Aug, [facility] [place] [facility] [address] [id number] [place] [address]- 5877 Aug, [facility] [place] [facility] [address] [id number] [place] [address]- 7391 Aug, [facility] [place] [facility] [address] [id number] [place] [address]- 6875 Aug, [facility] [place] [facility] [address] [id number] [place] [address]- 0648 Jul, [facility] [place] [facility] [address] [id number] [place] [address]- 0970 Jul, [facility] [place] [facility] [address] [id number] [place] [address]- 4275 Jul, [facility] [place] [facility] [address] [id number] [place] [address]- 4921 Jul, [facility] [place] [facility] [address] [id number] [place] [address]- 5931 Jul, [facility] [place] [facility] [address] [id number] [place] [address]- 3227 Jul, [facility] [place] [facility] [address] [id number] [place] [address]- 1039 Jun, [facility] [place] [facility] [address] [id number] [place] [address]- 8680 Jun, [facility] [place] [facility] [address] [id number] [place] [address]- 9383 Jun, [facility] [place] [facility] [address] [id number] [place] [address]- 1135 Jun, [facility] [place] [facility] [address] [id number] [place] [address]- 3486 Jun, [facility] [place] [facility] [address] [id number] [place] [address]- 2578 Jun, [facility] [place] [facility] [address] [id number] [place] [address]- 7372 Jun, [facility] [place] [facility] [address] [id number] [place] [address]- 6869 Jun, [facility] [place] [facility] [address] [id number] [place] [address]- 7562 May, [facility] [place] [facility] [address] [id number] [place] [address]- 0122 May, [facility] [place] [facility] [address] [id number] [place] [address]- 8263 May, [facility] [place] [facility] [address] [id number] [place] [address]- 1395 May, [facility] [place] [facility] [address] [id number] [place] [address]- 6918 May, [facility] [place] [facility] [address] [id number] [place] [address]- 2278 May, [facility] [place] [facility] [address] [id number] [place] [address]- 8664 Apr, [facility] [place] [facility] [address] [id number] [place] [address]- 2897 Apr, [facility] [place] [facility] [address] [id number] [place] [address]- 6522 Apr, [facility] [place] [facility] [address] [id number] [place] [address]- 0623 Apr, [facility] [place] [facility] [address] [id number] [place] [address]- 9715 Apr, [facility] [place] [facility] [address] [id number] [place] [address]- 8258 Apr, [facility] [place] [facility] [address] [id number] [place] [address]- 3122 Apr, [facility] [place] [facility] [address] [id number] [place] [address]- 7226 Mar, [facility] [place] [facility] [address] [id number] [place] [address]- 4340 Mar, [facility] [place] [facility] [address] [id number] [place] [address]- 4796 Mar, [facility] [place] [facility] [address] [id number] [place] [address]- 6835 Mar, [facility] [place] [facility] [address] [id number] [place] [address]- 9090 Feb, [facility] [place] [facility] [address] [id number] [place] [address]- 5580 Feb, [facility] [place] [facility] [address] [id number] [place] [address]- 8678 Feb, [facility] [place] [facility] [address] [id number] [place] [address]- 3560 Feb, [facility] [place] [facility] [address] [id number] [place] [address]- 1267 Feb, [facility] [place] [facility] [address] [id number] [place] [address]- 2145 Feb, [facility] [place] [facility] [address] [id number] [place] [address]- 9098 Jan, [facility] [place] [facility] [address] [id number] [place] [address]- 9491 Jan, [facility] [place] [facility] [address] [id number] [place] [address]- 4122 Jan, [facility] [place] [facility] [address] [id number] [place] [address]- 2472 Jan, [facility] [place] [facility] [address] [id number] [place] [address]- 1854 Jan, [facility] [place] [facility] [address] [id number] [place] [address]- 7171 Jan, [facility] [place] [facility] [address] [id number] [place] [address]- 7888 Jan, [facility] [place] [facility] [address] [id number] [place] [address]- 6546 Jan, [facility] [place] [facility] [address] [id number] [place] [address]- 5007 Jan, [facility] [place] [facility] [address] [id number] [place] [address]- 8368 Jan, [facility] [place] [facility] [address] [id number] [place] [address]- 7676 Dec, [facility] [place] [facility] [address] [id number] [place] [address]- 9824 Dec, [facility] [place] [facility] [address] [id number] [place] [address]- 4320 Dec, [facility] [place] [facility] [address] [id number] [place] [address] Dec, [facility] [place] [facility] [address] [id number] [place] [address] November, [facility] [place] [facility] [address] [id number] [place] [address] November, [facility] [place] [facility] [address] [id number] [place] [address] November, [facility] [place] [facility] [address] [id number] [place] [address] November, [facility] [place] [facility] [address] [id number] [place] [address] Oct, [facility] [place] [facility] [address] [id number] [place] [address] Oct, [facility] [place] [facility] [address] [id number] [place] [address] Oct, [facility] [place] [facility] [address] [id number] [place] [address] Oct, [facility] [place] [facility] [address] [id number] [place] [address] Oct, [facility] [place] [facility] [address] [id number] [place] [address] Oct, [facility] [place] [facility] [address] [id number] [place] [address] Oct, [facility] [place] [facility] [address] [id number] [place] [address] Oct, [facility] [place] [facility] [address] [id number] [place] [address] Sep, [facility] [place] [facility] [address] [id number] [place] [address] Sep, [facility] [place] [facility] [address] [id number] [place] [address] Sep, [facility] [place] [facility] [address] [id number] [place] [address] Sep, [facility] [place] [facility] [address] [id number] [place] [address] Sep, [facility] [place] [facility] [address] [id number] [place] [address]- [address] Sep, [facility] [place] [facility] [address] [id number] [place] [address] Aug, [facility] [place] [facility] [address] [id number] [place] [address] Aug, [facility] [place] [facility] [address] [id number] [place] [address] Jul, [facility] [place] [facility] [address] [id number] [place] [address] Jul, [facility] [place] [facility] [address] [id number] [place] [address] Jul, [facility] [place] [facility] [address] [id number] [place] [address] Jul, [facility] [place] [facility] [address] [id number] [place] [address] Jul, [facility] [place] [facility] [address] [id number] [place] [address] Jul, [facility] [place] [facility] [address] [id number] [place] [address] Jul, [facility] [place] [facility] [address] [id number] [place] [address] Jul, [facility] [place] [facility] [address] [id number] [place] [address] Jun, [facility] [place] [facility] [address] [id number] [place] [address] Jun, [facility] [place] [facility] [address] [id number] [place] [address] May, [facility] [place] [facility] [address] [id number] [address] May, [facility] [place] [facility] [address] [id number] [place] [address] Apr, 2012 [facility] [place] [facility] [address] [id number] [place] [address] Apr, [facility] [place] [facility] [address] [id number] [place] [address] Apr, [facility] [place] [facility] [address] [id number] [place] [address] Apr, 2012 [facility] [place] [facility] [address] [id number] [place] [address]- 1024 Apr, [facility] [place] [facility] [address] [id number] [place] [address] Apr, [facility] [place] [facility] [address] [id number] [place] [address] Apr, [facility] [place] [facility] [address] [id number] [place] [address] Apr, [facility] [place] [facility] [address] [id number] [place] [address] Apr, [facility] [place] [facility] [address] [id number] [address] Apr, [facility] [place] [facility] [address] [id number] [place] [address] Apr, [facility] [place] [facility] [address] [id number] [place] [address] Apr, [facility] [place] [facility] [address] [id number] [place] [address] Apr, [facility] [place] [facility] [address] [id number] [place] [address] Apr, [facility] [place] [facility] [address] [facility] [id number] [place] [address] Apr, [facility] [place] [facility] [address] [id number] [place] [address] 27 Mar, 2012 [facility] [place] [facility] [address] [id number] [place] [address] 27 Mar, 2012 [facility] [place] [facility] [address] [id number] [place] [address] 26 Mar, 2012 [facility] [place] [facility] [address] [id number] [place] [address] 25 Mar, 2012 [facility] [place] [facility] [address] [id number] [place] [address] 46[address] 16 Mar, 2012 [facility] [place] [facility] [address] [id number] [place] [address] 03 Mar, 2013 [facility] [place] [facility] [address] [id number] [place] [address]- [address] 31 Jan, 2013 [facility] [place] [facility] [address] [id number] [place] [address] 16 Jan, 2013 [facility] [place] [facility] [address] [id number] [place] [address] Jan, [facility] [place] [facility] [address] [id number] [place] [address] 13 Dec, 2012 [facility] [place] [facility] [address] [id number] [place] [address]- [address] 13 Oct, 2012 [facility] [place] [facility] [address] [id number] [place] [address]- [address] 16 May, 2012 [facility] [place] [facility] [address] [id number] [place] [address]- 4750 16 May, 2012 [facility] [place] [facility] [address] [id number] [place] [address]- [address] 05 Jun, 2011 [facility] [place] [facility] [address] [id number] [place] [address] May, [facility] [place] [facility] [address] [id number] [place] [address]- 9464 11 May, 2011 [facility] [place] [facility] [address] [id number] [place] [address]- 39[address] 03 May, 2011 [facility] [place] [facility] [address] [id number] [place] [address]- [address]28 14 Apr, 2011 [facility] [place] [facility] [address] [id number] [place] [address]- [address] 13 Apr, 2011 [facility] [place] [facility] [address] [id number] [place] [address]- [address] 17 Feb, 2011 [facility] [place] [facility] [address] [id number] [place] [address]- 6579 16 Feb, 2011 [facility] [place] [facility] [address] [id number] [place] [address] Dec, [facility] [place] [facility] [address] [id number] [place] [address] Oct, [facility] [place] [facility] [address] [id number] [place] [address]- 75[address] 19 Sep, 2010 [facility] [place] [facility] [address] [id number] [place] [address]- [address] Sep, [facility] [place] [facility] [address] [id number] [place] [address] 69[address] 20 Jul, 2010 [facility] [place] [facility] [address] [id number] [place] [address] Jul, [facility] [place] [facility] [address] [id number] [place] [address] 28 Jun, 2010 [facility] [place] [facility] [address] [id number] [place] [address]- [address]198 23 Jun, 2010 [facility] [place] [facility] [address] [id number] [place] [address]- 96[address] 14 Jun, 2010 [facility] [place] [facility] [address] [id number] [place] [address]- [address] 14 Jun, 2010 [facility] [place] [facility] [address] [id number] [place] [address]- [address] 08 Jun, 2010 [facility] [address] [id number] [place] [address]- [address] 30 May, 2010 [facility] [place] [facility] [address] [id number] [place] [address]- [address]336 23 May, 2010 [facility] [place] [facility] [address] [id number] [place] [address]- 4546 17 May, 2010 [facility] [place] [facility] [address] [id number] [place] [address]- [address]126 17 May, 2010 [facility] [place] [facility] [address] [id number] [place] [address]- 6298 17 May, 2010 [facility] [place] [facility] [address] [id number] [place] [address]- 64[address] May, [facility] [place] [facility] [address] [id number] [place] [address]- [address] 23 Apr, 2010 [facility] [place] [facility] [address] [id number] [place] [address]- [address]60 14 Apr, 2010 [facility] [place] [facility] [address] [id number] [place] [address]- 4725 10 Mar, 2010 [facility] [place] [facility] [address] [id number] [place] [address]- 110[address] Feb, [facility] [place] [facility] [address] [id number] [place] [address]- 9284 17 Sep, 2009 [facility] [place] [facility] [address] [id number] [place] [address] 2548 Sep, [facility] [place] [facility] [address] [id number] [place] [address]- 1215 18 Aug, 2009 [facility] [place] [facility] [address] [id number] [place] [address] 2546 Jun, [facility] [place] [facility] [address] [id number] [place] [address] Jun, [facility] [address] [facility] [id number] [id number] [address] May, [facility] [address] [facility] [id number] [place] [address] Dec, [facility] [address] [facility] [id number] [place] [address] Sep, IMMUNIZATIONS No Known Immunizations SOCIAL HISTORY Never Assessed REASON FOR VISIT Pain management (chronic) -[place] PLAN OF CARE VITAL SIGNS Height 69 in 2017-12-14 Weight 270.2 lbs 2017-12-14 Temperature 98.7 degrees Fahrenheit 2017-12-14 Heart Rate 72 bpm 2017-12-14 Respiratory Rate 20 2017-12-14 BMI 39.90 kg/m2 2017-12-14 Blood pressure systolic 130 mmHg 2017-12-14 Blood pressure diastolic 70 mmHg 2017-12-14 MEDICATIONS Medication Instructions Dosage Frequency Start Date End Date Duration Status Xanax 1 MG Orally Twice a day 1 tablet 12h Jun, 28 days Active Nicoderm CQ 14 MG/24HR Transdermal Once a day 1 patch to skin 24h Dec, Dec, 14 days Active Nicoderm CQ 7 MG/24HR Transdermal Once a day, start after finishing 14 mcg 1 patch to skin Dec, Dec, 14 days Active Albuterol Sulfate HFA 108 (90 Base) MCG/ACT Inhalation every 6 hrs 2 puffs as needed 6h Jul, Active Norvasc 10 mg Orally Once a day 1 tablet 24h Dec, 30 day(s) Active Tessalon Perles 100 mg Orally Three times a day 1 capsule as needed 8h Aug, Active Simvastatin 20 mg Orally Once a day 1 tablet in the evening 24h Jul, 30 day(s) Not-Taking Dextroamphetamine Sulfate 10 MG Orally Three times a day 2 tablets 8h November, 28 days Active Moyers 5-325 MG Orally 4 times a day 1 tablet as needed 6h Dec, Jan, 28 days Active Vitamins 0.8 MG Orally Once a day 1 tablet 24h Active Cetirizine HCl 10 mg Orally Once a day 1 tablet 24h Dec, Apr, 30 day(s) Active Ibuprofen 200 MG Orally every 6 hrs 1 tablet as needed 6h Active RESULTS No Results PROCEDURES No Known [...]
--- OUTSIDE RECORDS SUMMARY | 2018-06-27 07:27 | XMS REPORT ---
Author Author ARABELLA DIXON Organization [facility] Address [address] [place] [address] Care Team Providers Care Traffic Technician Name Role Phone ARABELLA DIXON Unavailable PROBLEMS Type Condition ICD9-CM Code [id number] Code Onset Dates Condition Status SNOMED Code Problem Lumbago with sciatica, right side M54.41 Active 992475590922923 Problem Diabetes type 2, controlled E11.9 Active 34565605 Problem Other chronic pain G89.29 Active 54771961 Problem High risk medications (not anticoagulants) long-term use Z79.899 Active 921039681 Problem Obstructive sleep apnea syndrome G47.33 Active 51186006 Problem Lumbago with sciatica, left side M54.42 Active 551441908 Problem Bilateral low back pain with sciatica, sciatica laterality unspecified M54.40 Active 95199645 Problem Essential hypertension I10 Active 13653215 Problem Migraine without aura and without status migrainosus, not intractable G43.009 Active 692628230 Problem Morbid obesity due to excess calories E66.01 Active 892247975 Problem Mood disorder F39 Active 34386431 Problem Anxiety F41.9 Active 42960442 ALLERGIES No Information ENCOUNTERS Encounter Location Date Diagnosis [facility] [id number] [address] Mar, [facility] [id number] [place] [address] 01201- 3541 Feb, Anxiety F41.9 [facility] [id number] [place] [address] 95412- 9691 Feb, Morbid obesity due to excess calories E66.01 [facility] [id number] [place] [address] 72794- 8278 Feb, Bilateral low back pain with sciatica, sciatica laterality unspecified M54.40 and Diabetes type 2, controlled E11.9 [place] [address] [address] Jan, Morbid obesity due to excess calories E66.01 [facility] [id number] [place] [address] 19106- 9711 Jan, [place] [id number] [place] [address] 60760- 7711 Jan, Diabetes type 2, controlled E11.9 [facility] [id number] [place] [address] 52733- 1254 Jan, Diabetes type 2, controlled E11.9 [facility] [id number] [place] [address] 07636- 5796 Jan, Bilateral low back pain with sciatica, sciatica laterality unspecified M54.40 and Dysfunction of both eustachian tubes H69.83 [place] [id number] [place] [address] 24809- 4342 Jan, Morbid obesity due to excess calories E66.01 [place] [id number] [place] [address] 99728- 5015 Dec, Diabetes type 2, controlled E11.9 [place] [id number] [place] [address] 82444- 8256 Dec, Morbid obesity due to excess calories E66.01 ; Essential hypertension I10 ; Tobacco abuse Z72.0 and Tobacco abuse counseling Z71.6 [place] [id number] [place] [address] 23460- 1530 November, Diabetes type 2, controlled E11.9 [place] [id number] [place] [address] 06812- 4582 Oct, Diabetes type 2, controlled E11.9 [facility] [id number] [place] [address] 62740- 0779 Sep, Diabetes type 2, controlled E11.9 [place] [id number] [place] [address] 59976- 9852 Sep, [place] [id number] [place] [address] 06725- 8657 Aug, Diabetes type 2, controlled E11.9 and Morbid obesity due to excess calories E66.01 [place] [id number] [place] [address] 69095- 4990 Jul, Anxiety F41.9 [place] [id number] [place] [address] 19952- 8208 Jul, [place] [id number] [place] [address] 34882- 3690 Jul, Anxiety F41.9 ; Mood disorder F39 ; Morbid obesity due to excess calories E66.01 and Diabetes type 2, controlled E11.9 [place] [id number] [place] [address] 10045- 5304 Jun, Anxiety F41.9 [place] [id number] [place] [address] 84182- 0053 Jun, Anxiety F41.9 ; Morbid obesity due to excess calories E66.01 and Diabetes type 2, controlled E11.9 [place] [id number] [place] [address] 93482- 2488 May, Migraine without aura and without status migrainosus, not intractable G43.009 ; Diabetes type 2, controlled E11.9 and Morbid obesity due to excess calories E66.01 [place] [id number] [place] [address] 11430- 5081 Apr, Migraine without aura and without status migrainosus, not intractable G43.009 ; Diabetes type 2, controlled E11.9 and Morbid obesity due to excess calories E66.01 [place] [id number] [place] [address] 03297- 2801 Apr, Diabetes type 2, controlled E11.9 and Morbid obesity due to excess calories E66.01 [place] [id number] [place] [address] 24049- 9318 Mar, Diabetes type 2, controlled E11.9 and Morbid obesity due to excess calories E66.01 [place] [address] [address]- 8890 Mar, Diabetes type 2, controlled E11.9 and Mood disorder F39 [place] [id number] [place] [address] 35875- 4919 Feb, Morbid obesity due to excess calories E66.01 and Diabetes type 2, controlled E11.9 [place] [id number] [place] [address] 47524- 1846 Jan, Diabetes type 2, controlled E11.9 and Morbid obesity due to excess calories E66.01 [place] [id number] [place] [address] 81946- 4767 Dec, Diabetes type 2, controlled E11.9 and Morbid obesity due to excess calories E66.01 [place] [id number] [place] [address] 97506- 3027 Dec, Morbid obesity due to excess calories E66.01 [place] [id number] [place] [address] 55119- 5585 November, Diabetes type 2, controlled E11.9 and Morbid obesity due to excess calories E66.01 [place] [address] [address]- 4059 November, Anxiety F41.9 and Injury of right foot, initial encounter S99.921A [place] [address] [address]- 8434 November, Diabetes type 2, controlled E11.9 and Morbid obesity due to excess calories E66.01 [place] [address] [address]- 2610 November, [place] [address] [address]- 3590 Oct, Family history of brain aneurysm Z82.49 and Migraine without aura and without status migrainosus, not intractable G43.009 [facility] [id number] [place] [address] 64028- 9575 Oct, Diabetes type 2, controlled E11.9 [facility] [id number] [place] [address] 36470- 9552 Oct, Morbid obesity due to excess calories E66.01 ; Family history of brain aneurysm Z82.49 and Migraine without aura and without status migrainosus, not intractable G43.009 [facility] [id number] [place] [address] 53753- 4430 Oct, Diabetes type 2, controlled E11.9 and Morbid obesity due to excess calories E66.01 [facility] [id number] [place] [address] 48998- 5187 Sep, [facility] [id number] [place] [address] 23432- 6259 Sep, Diabetes type 2, controlled E11.9 [facility] [id number] [place] [address] 66302- 6861 Sep, Morbid obesity due to excess calories E66.01 [facility] [id number] [place] [address] 62123- 1535 Aug, Exposure to hepatitis C Z20.5 [facility] [id number] [place] [address] 99283- 2780 Aug, Diabetes type 2, controlled E11.9 [facility] [id number] [place] [address] 50687- 2956 Jul, Exposure to hepatitis C Z20.5 [facility] [id number] [place] [address] 99150- 6203 Jul, Exposure to hepatitis C Z20.5 [facility] [id number] [place] [address] 64412- 8900 Jul, [facility] [id number] [place] [address] [place] [address]- 0834 Jul, Diabetes type 2, controlled E11.9 [facility] [id number] [place] [address] 32473- 0632 Jun, [facility] [id number] [place] [address] 55955- 5548 Jun, Diabetes type 2, controlled E11.9 ; Pain of left foot M79.672 and Pain in right foot M79.671 [facility] [id number] [address]- 6207 May, [facility] [id number] [place] [address] 69431- 1823 Apr, [facility] [id number] [place] [address] 23657- 7543 Apr, [facility] [id number] [place] [address] 81576- 8649 Mar, [facility] [id number] [place] [address] 79174- 5078 Feb, [facility] [id number] [place] [address] 54359- 4436 Feb, [facility] [id number] [place] [address] 00156- 9516 Jan, [facility] [id number] [place] [address] 33460- 1046 Dec, Diabetes type 2, controlled E11.9 ; 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 and Abscess, abdomen K65.1 [facility] [id number] [place] [address] 81879- 9533 Dec, Shoulder pain, right 719.41 [facility] [id number] [address]- 4538 November, [facility] [id number] [place] [address] 38221- 9082 November, [facility] [id number] [address]- 6069 Oct, [facility] [id number] [address]- 9305 Sep, [facility] [id number] [address]- 0014 Sep, [facility] [id number] [place] [address] 74967 -1611 Aug, [facility] [id number] [place] [address] 81073- 4214 Aug, [facility] [id number] [place] [address] 04090- 7644 Aug, Cellulitis, unspecified L03.90 ; Cutaneous abscess, unspecified L02.91 ; Diabetes type 2, controlled E11.9 ; Migraine G43.909 and Bilateral low back pain with sciatica, sciatica laterality unspecified M54.40 [facility] [id number] [address] -7464 Aug, Abscess and cellulitis L03.90 [facility] [id number] [address]- 7592 Aug, [facility] [id number] [address]- 0120 Aug, [facility] [id number] [address]- 1228 Jul, [facility] [id number] [address]- 7086 Jul, Diabetes type 2, controlled E11.9 [facility] [id number] [address]- 4015 Jul, Diabetes type 2, controlled E11.9 [facility] [id number] [place] [address] 59985- 6783 Jun, Diabetes type 2, controlled E11.9 ; Bilateral low back pain with sciatica, sciatica laterality unspecified M54.40 and Morbid obesity, unspecified obesity type E66.01 [facility] [id number] [place] [address] 78706- 8734 Jun, [facility] [id number] [place] [address] 33215- 4006 May, [facility] [address] 74188- 5520 Apr, [facility] [id number] [place] [address] 02460- 0480 Apr, [facility] [id number] [place] [address] 56079- 4471 Apr, [facility] [id number] [place] [address] 65861- 0831 Mar, [facility] [id number] [place] [address] 87693- 3793 Mar, [facility] [id number] [place] [address] 72653- 7385 Mar, [facility] [id number] [place] [address] 90204- 3399 Feb, [facility] [id number] [place] [address] 74951- 2138 Feb, [facility] [id number] [place] [address] 72950- 3235 Feb, [facility] [id number] [place] [address] 51738- 3736 Feb, [facility] [id number] [place] [address] 72707- 4642 Feb, Diabetes mellitus without mention of complication, type II or unspecified type, not stated as uncontrolled 250.00 [facility] [id number] [place] [address] 28544- 3949 Feb, [facility] [id number] 1538 Feb, [facility] [id number] [address]- 2651 Jan, Diabetes mellitus without mention of complication, type II or unspecified type, not stated as uncontrolled 250.00 and Cellulitis and abscess 682.9 [facility] [id number] [address]- 5079 Jan, [facility] [id number] [place] [address] 39392- 5985 Jan, [facility] [id number] [place] [address] 659776- 3852 Jan, [facility] [id number] [place] [address] 823986- 2894 Dec, [facility] [id number] [address]- 4988 Dec, [facility] [id number] [address]- 8065 Dec, [facility] [id number] [address]- 6179 November, [facility] [id number] [address]- 3968 Oct, Shoulder pain, right 719.41 [facility] [id number] [address]- 3402 Oct, [facility] [id number] 6429 Oct, [facility] [id number] 1833 Sep, [facility] [id number] 5290 Sep, [facility] [place] [facility] [address] [id number] [place] [address]- 3185 Sep, [facility] [place] [facility] [address] [id number] [place] [address]- 3724 Sep, [facility] [place] [facility] [address] [id number] [place] [address]- 9279 Sep, [facility] [place] [facility] [address] [id number] [place] [address]- 9529 Sep, [facility] [place] [facility] [address] [id number] [place] [address]- 9415 Sep, [facility] [place] [facility] [address] [id number] [place] [address]- 5151 Sep, [facility] [place] [facility] [address] [id number] [place] [address]- 8674 Aug, [facility] [place] [facility] [address] [id number] [place] [address]- 7238 Aug, [facility] [place] [facility] [address] [id number] [place] [address]- 3796 Aug, [facility] [place] [facility] [address] [id number] [place] [address]- 8593 Aug, [facility] [place] [facility] [address] [id number] [place] [address]- 7638 Jul, [facility] [place] [facility] [address] [id number] [place] [address]- 7507 Jul, [facility] [place] [facility] [address] [id number] [place] [address]- 8850 Jul, [facility] [place] [facility] [address] [id number] [place] [address]- 3796 Jul, [facility] [place] [facility] [address] [id number] [place] 9054 Jul, [facility] [place] [facility] [address] [id number] [place] [address]- 6067 Jul, [facility] [place] [facility] [address] [id number] [place] [address]- 6267 Jun, [facility] [place] [facility] [address] [id number] [place] [address]- 2542 24 Jun, 2014 [facility] [place] [facility] [address] [id number] [place] [address]- 5603 Jun, [facility] [place] [facility] [address] [id number] [place] [address]- 0611 19 Jun, 2014 [facility] [place] [facility] [address] [id number] [place] [address]- 9150 18 Jun, 2014 [facility] [place] [facility] [address] [id number] [place] [address]- 8805 Jun, [facility] [place] [facility] [address] [id number] [place] [address]- 5923 15 Jun, 2014 [facility] [place] [facility] [address] [id number] [place] [address]- 6662 15 Jun, 2014 [facility] [place] [facility] [address] [id number] [place] [address]- 6680 May, [facility] [place] [facility] [address] [id number] [place] [address]- 9268 May, [facility] [place] [facility] [address] [id number] [place] [address]- 8516 May, [facility] [place] [facility] [address] [id number] [address]- 1095 18 May, 2014 [facility] [place] [facility] [address] [id number] [place] [address]- 0673 17 May, 2014 [facility] [place] [facility] [address] [id number] [place] [address]- 7935 17 May, 2014 [facility] [place] [facility] [address] [id number] [place] [address]- 4308 20 Apr, 2014 [facility] [place] [facility] [address] [id number] [place] [address]- 3261 Apr, [facility] [place] [facility] [address] [id number] [place] [address]- 1238 Apr, [facility] [place] [facility] [address] [id number] [place] [address]- 7449 Apr, [facility] [place] [facility] [address] [id number] [place] [address]- 4121 Apr, [facility] [place] [facility] [address] [id number] [place] [address]- 4178 Apr, [facility] [place] [facility] [address] [id number] [place] [address]- 1702 Apr, [facility] [place] [facility] [address] [id number] [place] [address]- 1600 Mar, [facility] [place] [facility] [address] [id number] [place] [address]- 4731 Mar, [facility] [place] [facility] [address] [id number] [place] [address]- 4294 Mar, [facility] [place] [facility] [address] [id number] [place] [address]- 5853 Mar, [facility] [place] [facility] [address] [id number] [place] [address]- 8357 Feb, [facility] [place] [facility] [address] [id number] [place] [address]- 4158 Feb, [facility] [place] [facility] [address] [id number] [place] [address]- 4633 Feb, [facility] [place] [facility] [address] [id number] [place] [address]- 8613 Feb, [facility] [place] [facility] [address] [id number] [place] [address]- 4499 Feb, [facility] [place] [facility] [address] [id number] [place] [address]- 1890 Feb, [facility] [place] [facility] [address] [id number] [place] [address]- 2008 Jan, [facility] [place] [facility] [address] [id number] [place] [address]- 9083 Jan, [facility] [place] [facility] [address] [id number] [place] [address]- 7946 Jan, [facility] [place] [facility] [address] [id number] [place] [address]- 7778 Jan, [facility] [place] [facility] [address] [id number] [place] [address]- 0365 Jan, [facility] [place] [facility] [address] [id number] [place] [address]- 2365 Jan, [facility] [place] [facility] [address] [id number] [place] [address]- 5206 Jan, [facility] [place] [facility] [address] [id number] [place] [address]- 3418 Jan, [facility] [place] [facility] [address] [id number] [place] [address]- 8650 Jan, [facility] [place] [facility] [address] [id number] [place] [address]- 7775 Jan, [facility] [place] [facility] [address] [id number] [place] [address]- 3724 Dec, [facility] [place] [facility] [address] [id number] [place] [address]- 8225 Dec, [facility] [place] [facility] [address] [id number] [place] [address]- 2283 Dec, [facility] [place] [facility] [address] [id number] [place] [address]- 9143 Dec, [facility] [place] [facility] [address] [id number] [place] [address]- 4284 November, [facility] [place] [facility] [address] [id number] [place] [address]- 3781 November, [facility] [place] [facility] [address] [id number] [place] [address]- 4821 November, [facility] [place] [facility] [address] [id number] [place] [address] November, [facility] [place] [facility] [address] [id number] [place] [address] Oct, [facility] [place] [facility] [address] [id number] [place] [address] Oct, [facility] [place] [facility] [address] [id number] [place] [address] Oct, [facility] [place] [facility] [address] [id number] [place] [address] Oct, [facility] [place] [facility] [address] [id number] [place] [address] Oct, [facility] [place] [facility] [address] [id number] [place] [address] Oct, [facility] [place] [facility] [address] [id number] [place] [address] Oct, [facility] [place] [facility] [address] [id number] [place] [address] Oct, [facility] [place] [facility] [address] [id number] [place] [address] Sep, [facility] [place] [facility] [address] [id number] [place] [address] Sep, [facility] [place] [facility] [address] [id number] [place] [address] Sep, [facility] [place] [facility] [address] [id number] [place] [address] Sep, [facility] [place] [facility] [address] [id number] [place] [address] Sep, [facility] [place] [facility] [address] [id number] [place] [address] Sep, [facility] [place] [facility] [address] [id number] [place] [address] Aug, [facility] [place] [facility] [address] [id number] [place] [address] Aug, [facility] [place] [facility] [address] [id number] [place] [address] Jul, [facility] [place] [facility] [address] [id number] [place] [address] Jul, [facility] [place] [facility] [address] [id number] [place] [address] Jul, [facility] [place] [facility] [address] [id number] [place] [address] Jul, [facility] [place] [facility] [address] [id number] [place] [address] Jul, [facility] [place] [facility] [address] [id number] [place] [address] Jul, [facility] [place] [facility] [address] [id number] [place] [address] Jul, [facility] [place] [facility] [address] [id number] [place] [address] Jul, [facility] [place] [facility] [address] [id number] [place] [address] Jun, [facility] [place] [facility] [address] [id number] [place] [address] Jun, [facility] [place] [facility] [address] [id number] [place] [address] May, [facility] [place] [facility] [address] [id number] [place] [address] May, [facility] [place] [facility] [address] [id number] [place] [address] Apr, 2012 [facility] [place] [facility] [address] [id number] [place] [address] Apr, 2012 [facility] [place] [facility] [address] [id number] [place] [address] Apr, [facility] [place] [facility] [address] [id number] [place] [address] Apr, 2012 [facility] [place] [facility] [address] [id number] [place] [address] Apr, 2012 [facility] [place] [facility] [address] [id number] [place] [address] Apr, [facility] [place] [facility] [address] [id number] [place] [address] Apr, [facility] [place] [facility] [address] [id number] [place] [address] Apr, [facility] [place] [facility] [address] [id number] [place] [address] Apr, [facility] [place] [facility] [address] [id number] [place] [address] Apr, [facility] [place] [facility] [address] [id number] [place] [place] [address] Apr, [facility] [place] [facility] [address] [id number] [place] [address] Apr, [facility] [place] [facility] [address] [id number] [place] [address] Apr, [facility] [place] [facility] [address] [id number] [place] [address] Apr, [facility] [place] [facility] [address] [id number] [place] [address] Apr, [facility] [place] [facility] [address] [id number] [place] [address] Mar, [facility] [place] [facility] [address] [id number] [place] [address] 27 Mar, 2012 [facility] [place] [facility] [address] [id number] [place] [address] 26 Mar, 2012 [facility] [place] [facility] [address] [id number] [place] [address] 25 Mar, 2012 [facility] [place] [facility] [address] [id number] [place] [address] 16 Mar, 2012 [facility] [place] [facility] [address] [id number] [place] [address] 03 Mar, 2013 [facility] [place] [facility] [address] [id number] [place] [address] 31 Jan, 2013 [facility] [place] [facility] [address] [id number] [place] [address]- 9582 16 Jan, 2013 [facility] [place] [facility] [address] [id number] [place] [address] Jan, [facility] [place] [facility] [address] [id number] [place] [address] Dec, [facility] [place] [facility] [address] [id number] [place] [address] 13 Oct, 2012 [facility] [place] [facility] [address] [id number] [place] [address] 16 May, 2012 [facility] [place] [facility] [address] [id number] [place] [address]100 16 May, 2012 [facility] [place] [facility] [address] [id number] [place] [address]- 5599 05 Jun, 2011 [facility] [place] [facility] [address] [id number] [place] [address] May, [facility] [place] [facility] [address] [id number] [place] [address] May, [facility] [place] [facility] [address] [id number] [place] [address] 8652 03 May, 2011 [facility] [place] [facility] [address] [id number] [place] [address]13 14 Apr, 2011 [facility] [place] [facility] [address] [id number] [place] [address] 4630 13 Apr, 2011 [facility] [place] [facility] [address] [id number] [place] [address]- [address]608 17 Feb, 2011 [facility] [place] [facility] [address] [id number] [place] [address]- 4[address] 16 Feb, 2011 [facility] [place] [facility] [address] [id number] [place] [address] 3963 10 Dec, 2010 [facility] [place] [facility] [address] [id number] [place] [address] 1383 12 Oct, 2010 [facility] [place] [facility] [address] [id number] [place] [address]- 7573 19 Sep, 2010 [facility] [place] [facility] [address] [id number] [place] [address]- 9682 10 Sep, 2010 [facility] [place] [facility] [address] [id number] [place] [address]10 20 Jul, 2010 [facility] [place] [facility] [address] [id number] [place] [address] 8598 11 Jul, 2010 [facility] [place] [facility] [address] [id number] [place] [address] 1072 28 Jun, 2010 [facility] [place] [facility] [address] [id number] [place] [address] 23 Jun, 2010 [facility] [place] [facility] [address] [id number] [place] [address]- 7700 14 Jun, 2010 [facility] [place] [facility] [address] [id number] [place] [address]- 1035 14 Jun, 2010 [facility] [place] [facility] [address] [id number] [place] [address] 6401 08 Jun, 2010 [facility] [place] [facility] [address] [id number] [place] [address]- [address]897 30 May, 2010 [facility] [place] [facility] [address] [id number] [place] [address]- 3445 23 May, 2010 [facility] [place] [facility] [address] [id number] [place] [address] 17 May, 2010 [facility] [place] [facility] [address] [id number] [place] [address]- 7546 17 May, 2010 [facility] [place] [facility] [address] [id number] [place] [address]- 2483 17 May, 2010 [facility] [place] [facility] [address] [id number] [place] [address]- 3039 17 May, 2010 [facility] [place] [facility] [address] [id number] [place] [address]- 6[address] 23 Apr, 2010 [facility] [place] [facility] [address] [id number] [place] [address]- 1329 14 Apr, 2010 [facility] [place] [facility] [address] [id number] [place] [address]- 6[address] 10 Mar, 2010 [facility] [place] [facility] [address] [id number] [place] [address]- 2704 10 Feb, 2010 [facility] [place] [facility] [address] [id number] [place] [address]- 4692 17 Sep, 2009 [facility] [place] [facility] [address] [id number] [place] [address]70 Sep, [facility] [place] [facility] [address] [id number] [place] [address]- [address] Aug, [facility] [place] [facility] [address] [id number] [place] [address]- 9[address] Jun, [facility] [place] [facility] [address] [id number] [place] [address]- [address] Jun, [facility] [place] [facility] [address] [id number] [place] [address] May, [facility] [address] [facility] [id number] [place] [id number] Dec, [facility] [address] [facility] [id number] [place] [address] Sep, IMMUNIZATIONS No Known Immunizations SOCIAL HISTORY Never Assessed REASON FOR VISIT Controlled Med Refill PLAN OF CARE VITAL SIGNS MEDICATIONS Medication Instructions Dosage Frequency Start Date End Date Duration Status [place] 5-325 MG Orally 4 times a day [...]
--- OUTSIDE RECORDS SUMMARY | 2018-06-27 07:28 | XMS REPORT ---
Author Author ARABELLA DIXON Organization [facility] Address [address] [place] [address] Care Team Providers Care Digital Program Manager Name Role Phone ARABELLA DIXON Unavailable PROBLEMS Type Condition ICD9-CM Code OKO90-LF Code Onset Dates Condition Status SNOMED Code Problem Lumbago with sciatica, right side M54.41 Active 260510216886255 Problem Diabetes type 2, controlled E11.9 Active 48639445 Problem Other chronic pain G89.29 Active 65788682 Problem High risk medications (not anticoagulants) long-term use Z79.899 Active 841345073 Problem Obstructive sleep apnea syndrome G47.33 Active 41109806 Problem Lumbago with sciatica, left side M54.42 Active 458758567 Problem Bilateral low back pain with sciatica, sciatica laterality unspecified M54.40 Active 22490631 Problem Essential hypertension I10 Active 44711172 Problem Migraine without aura and without status migrainosus, not intractable G43.009 Active 016288794 Problem Morbid obesity due to excess calories E66.01 Active 078635016 Problem Mood disorder F39 Active 96421156 Problem Anxiety F41.9 Active 09432240 ALLERGIES No Information ENCOUNTERS Encounter Location Date Diagnosis [facility] [id number], [place] [address] Feb, [facility] [id number], [place] [address] 5213 Jan, Morbid obesity due to excess calories E66.01 [facility] [id number] [place] [address] 94357- 4578 Jan, [facility] [id number], [place] [address] 7657 Jan, Diabetes type 2, controlled E11.9 [facility] [id number], [place] [address] 6585 Jan, Diabetes type 2, controlled E11.9 [facility] [id number] [place] [address] 61154- 4741 Jan, Bilateral low back pain with sciatica, sciatica laterality unspecified M54.40 and Dysfunction of both eustachian tubes H69.83 [facility] [id number] [place] [address] 02447- 6444 Jan, Morbid obesity due to excess calories E66.01 [facility] [id number] [place] [address] 15773- 5082 Dec, Diabetes type 2, controlled E11.9 [facility] [id number] [place] [address] 46343- 4891 Dec, Morbid obesity due to excess calories E66.01 ; Essential hypertension I10 ; Tobacco abuse Z72.0 and Tobacco abuse counseling Z71.6 [facility] [id number] [place] [address] 84360- 8225 November, Diabetes type 2, controlled E11.9 [facility] [id number] [place] [address] 02302- 3062 Oct, Diabetes type 2, controlled E11.9 [facility] [id number] [place] [address] 96037- 0445 Sep, Diabetes type 2, controlled E11.9 [facility] [id number], [place] [address] 1650 Sep, [facility] [id number] [place] [address] 51764- 1394 Aug, Diabetes type 2, controlled E11.9 and Morbid obesity due to excess calories E66.01 [facility] [id number] [place] [address] 96032- 1102 Jul, Anxiety F41.9 [facility] [id number] [place] [address] 77876- 1282 Jul, [facility] [address], [place] [address]- 4835 Jul, Anxiety F41.9 ; Mood disorder F39 ; Morbid obesity due to excess calories E66.01 and Diabetes type 2, controlled E11.9 [facility] [address], [place] [address]- 1028 Jun, Anxiety F41.9 [facility] [id number] [place] [address] 74144- 1077 Jun, Anxiety F41.9 ; Morbid obesity due to excess calories E66.01 and Diabetes type 2, controlled E11.9 [facility] [address] [place] [address] 93226- 8584 May, Migraine without aura and without status migrainosus, not intractable G43.009 ; Diabetes type 2, controlled E11.9 and Morbid obesity due to excess calories E66.01 [facility] [address] [place] [address] 15062- 9622 Apr, Migraine without aura and without status migrainosus, not intractable G43.009 ; Diabetes type 2, controlled E11.9 and Morbid obesity due to excess calories E66.01 [address] [place] [address] 78086- 2615 Apr, Diabetes type 2, controlled E11.9 and Morbid obesity due to excess calories E66.01 [facility] [address], [place] [address]- 0347 Mar, Diabetes type 2, controlled E11.9 and Morbid obesity due to excess calories E66.01 [facility] [id number], [place] [address]- 5254 Mar, Diabetes type 2, controlled E11.9 and Mood disorder F39 [facility] [id number], [place] [address]- 9440 Feb, Morbid obesity due to excess calories E66.01 and Diabetes type 2, controlled E11.9 [facility] [address], [place] [address]- 2149 Jan, Diabetes type 2, controlled E11.9 and Morbid obesity due to excess calories E66.01 [facility] [id number] [place] [address] 02876- 5662 Dec, Diabetes type 2, controlled E11.9 and Morbid obesity due to excess calories E66.01 [facility] [id number] [place] [address] 28416- 4899 Dec, Morbid obesity due to excess calories E66.01 [facility] [id number] [place] [address] 73240- 6527 November, Diabetes type 2, controlled E11.9 and Morbid obesity due to excess calories E66.01 [facility] [id number] [place] [address] 94302- 7039 November, Anxiety F41.9 and Injury of right foot, initial encounter S99.921A [address] [facility] [id number] [place] [address] 79519- 7952 November, Diabetes type 2, controlled E11.9 and Morbid obesity due to excess calories E66.01 [facility] [address] [place] [address] 83860- 3199 November, [facility] [id number] [place] [address] 72736- 6037 Oct, Family history of brain aneurysm Z82.49 and Migraine without aura and without status migrainosus, not intractable G43.009 [facility] [address], [place] [address]- 5955 Oct, Diabetes type 2, controlled E11.9 [facility] [address] [place] [address] 66561- 8500 Oct, Morbid obesity due to excess calories E66.01 ; Family history of brain aneurysm Z82.49 and Migraine without aura and without status migrainosus, not intractable G43.009 [facility] [address] [place] [address]- 8073 Oct, Diabetes type 2, controlled E11.9 and Morbid obesity due to excess calories E66.01 [facility] [address] [place] [address] 00614- 9528 Sep, [facility] [id number] [place] [address] 83118- 8834 Sep, Diabetes type 2, controlled E11.9 [facility] [id number] [place] [address] 75505- 8433 Sep, Morbid obesity due to excess calories E66.01 [facility] [id number] [place] [address] 32181- 5051 Aug, Exposure to hepatitis C Z20.5 [facility] [id number] [place] [address] 10181- 7884 Aug, Diabetes type 2, controlled E11.9 [facility] [id number] [place] [address] 31164- 8353 Jul, Exposure to hepatitis C Z20.5 [facility] [id number] [place] [address] 67185- 8247 Jul, Exposure to hepatitis C Z20.5 [facility] [address] [place] [address] 33879- 5116 Jul, [facility] [id number] [place] [address] 83900- 5896 Jul, Diabetes type 2, controlled E11.9 [facility] [address] [place] [address] 84940- 9996 Jun, [facility] [id number] [place] [address] 34192- 0571 Jun, Diabetes type 2, controlled E11.9 ; Pain of left foot M79.672 and Pain in right foot M79.671 [facility] [id number] [place] [address] 81824- 2546 May, [facility] [address] 8675 Apr, [facility] [address], [place] [address]- 6897 Apr, [facility] [address], [place] [address]- 7581 Mar, [facility] [id number] [place] [address] 28856- 2257 Feb, [facility] [id number] [place] [address] 74443- 6351 Feb, [facility] [id number] [place] [address] 093964- 2507 Jan, [facility] [id number] [place] [address] 029130- 5753 Dec, Diabetes type 2, controlled E11.9 ; 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 and Abscess, abdomen K65.1 [facility] [address], [place] [address]- 3491 Dec, Shoulder pain, right 719.41 [facility] [address], [place] [address]- 4154 November, [facility] [address] 5287 November, [facility] [address], [place] [address]- 9574 Oct, [facility] [address] 1691 Sep, [facility] [address]- 5673 Sep, [facility] [address], [place] [address] -2203 Aug, [facility] [address], [place] [address]- 5267 18 Aug, 2015 [facility] [id number] [place] [address] 88212- 2034 17 Aug, 2015 Cellulitis, unspecified L03.90 ; Cutaneous abscess, unspecified L02.91 ; Diabetes type 2, controlled E11.9 ; Migraine G43.909 and Bilateral low back pain with sciatica, sciatica laterality unspecified M54.40 [facility] [place] [facility] [address], [place] [address] -8285 13 Aug, 2015 Abscess and cellulitis L03.90 [facility] [id number] [place] [address] 44892- 3616 11 Aug, 2015 [facility] [id number] [place] [address] 78316- 1250 Aug, [facility] [id number] [place] [address] 84288- 8373 Jul, [facility] [id number] [place] [address] 91861- 9338 Jul, Diabetes type 2, controlled E11.9 [facility] [address] [place] [address] 95371- 1050 Jul, Diabetes type 2, controlled E11.9 [facility] [address] [place] [address] 67459- 9393 Jun, Diabetes type 2, controlled E11.9 ; Bilateral low back pain with sciatica, sciatica laterality unspecified M54.40 and Morbid obesity, unspecified obesity type E66.01 [facility] [id number] [place] [address] 94801- 5765 Jun, [facility] [id number] [place] [address] 19286- 3782 May, [facility] [id number] [place] [address] 40862- 3304 Apr, [facility] [id number], [place] [address]- 9938 Apr, [facility] [address], [place] [address]- 6316 Apr, [facility] [id number], [place] [address]- 5036 Mar, [facility] [id number], [place] [address]- 0452 Mar, [facility] [id number] [place] [address]- 4028 Mar, [facility] [address], [place] [address]- 6582 Feb, [facility] [address] [place] [address]- 9321 Feb, [facility] [address], [place] [address]- 4942 Feb, [facility] [address] 0434 Feb, [facility] [id number]- 2706 Feb, Diabetes mellitus without mention of complication, type II or unspecified type, not stated as uncontrolled 250.00 [facility] [id number], [place] [address]- 7100 Feb, [facility] [id number], [place] [address]- 7063 Feb, [facility] [id number], [place] [address]- 1972 Jan, Diabetes mellitus without mention of complication, type II or unspecified type, not stated as uncontrolled 250.00 and Cellulitis and abscess 682.9 [facility] [id number]- 1281 Jan, [facility] [address] [id number] [place] [address]- 8566 Jan, [facility] [address] [id number] [place] 6100 Jan, [facility] [address] [id number] [place] 1828 Dec, [facility] [address] [id number] [place] [address]- 1372 Dec, [facility] [address] [id number] [place] [address]- 3624 Dec, [facility] [address] [id number] [place] [address]- 0242 November, [facility] [address] [id number] [place] [address]- 3387 Oct, Shoulder pain, right 719.41 [facility] [address] [id number] [place] [address]- 6137 Oct, [facility] [address] [id number] [place] [address]- 3255 Oct, [facility] [address] [id number] [place] [address]- 3164 Sep, [facility] [address] [id number] [place] [address]- 1967 Sep, [facility] [place] [facility] [address] [id number] [place] [address]- 4390 Sep, [facility] [place] [facility] [address] [id number] [place] [address]- 4361 Sep, [facility] [place] [facility] [address] [id number] [place] [address]- 5628 Sep, [facility] [place] [facility] [address] [id number] [place] [address]- 2950 Sep, [facility] [place] [facility] [address] [id number] [place] [address]- 0498 14 Sep, 2014 [facility] [place] [facility] [address] [id number] [place] [address]- 2201 14 Sep, 2014 [facility] [place] [facility] [address] [id number] [place] [address]- 0430 24 Aug, 2014 [facility] [place] [facility] [address] [id number] [place] [address]- 0935 24 Aug, 2014 [facility] [place] [facility] [address] [id number] [place] [address]- 1656 Aug, [facility] [place] [facility] [address] [id number] [place] [address]- 4869 Aug, [facility] [place] [facility] [address] [id number] [place] [address]- 3613 Jul, [facility] [place] [facility] [address] [id number] [place] [address]- 2276 Jul, [facility] [place] [facility] [address] [id number] [place] [address]- 7905 Jul, [facility] [place] [facility] [address] [id number] [place] [address]- 8463 Jul, [facility] [place] [facility] [address] [id number] [place] [address]- 2213 Jul, [facility] [place] [facility] [address] [id number] [place] [address]- 8237 Jul, [facility] [place] [facility] [address] [id number] [place] [address]- 6728 Jun, [facility] [place] [facility] [address] [id number] [place] [address]- 9343 Jun, [facility] [place] [facility] [address] [id number] [place] [address]- 6655 Jun, [facility] [place] [facility] [address] [id number] [place] [address]- 2457 Jun, [facility] [place] [facility] [address] [id number] [place] [address]- 1505 Jun, [facility] [place] [facility] [address] [id number] [place] [address]- 1760 Jun, [facility] [place] [facility] [address] [id number] [place] [address]- 5415 Jun, [facility] [place] [facility] [address] [id number] [place] [address]- 8973 Jun, [facility] [place] [facility] [address] [id number] [place] [address]- 7759 May, [facility] [place] [facility] [address] [id number] [place] [address]- 9738 May, [facility] [place] [facility] [address] [id number] [place] [address]- 8834 May, [facility] [place] [facility] [address] [id number] [place] [address]- 3413 May, [facility] [place] [facility] [address] [id number] [place] [address]- 4515 May, [facility] [place] [facility] [address] [id number] [place] [address]- 4851 May, [facility] [place] [facility] [address] [id number], [place] [address]- 3014 Apr, [facility] [place] [facility] [address] [id number], [place] [address]- 2759 Apr, [facility] [place] [facility] [address] [id number] [place] [address]- 1460 Apr, [facility] [place] [facility] [address] [id number] [place] [address]- 4290 Apr, [facility] [place] [facility] [address] [id number], [place] [address]- 6972 Apr, [facility] [place] [facility] [address] [id number] [place] [address]- 9512 Apr, [facility] [place] [facility] [address] [id number] [place] [address]- 7581 Apr, [facility] [place] [facility] [address] [id number] [place] [address]- 0248 Mar, [facility] [place] [facility] [address] [id number] [place] [address]- 5374 Mar, [facility] [place] [facility] [address] [id number] [place] [address]- 2568 Mar, [facility] [place] [facility] [address] [id number] [place] [address]- 3875 Mar, [facility] [place] [facility] [address] [id number] [place] [address]- 7052 Feb, [facility] [place] [facility] [address] [id number] [place] [address]- 1215 Feb, [facility] [place] [facility] [address] [id number] [place] [address]- 6872 Feb, [facility] [place] [facility] [address] [id number] [place] [address]- 4294 Feb, [facility] [place] [facility] [address] [id number] [place] [address]- 3230 Feb, [facility] [place] [facility] [address] [id number] [place] [address]- 6419 Feb, [facility] [place] [facility] [address] [id number] [place] [address]- 9288 Jan, [facility] [place] [facility] [address] [id number] [place] [address]- 8902 Jan, [facility] [place] [facility] [address] [id number] [place] [address]- 3168 Jan, [facility] [place] [facility] [address] [id number] [place] [address]- 7638 Jan, [facility] [place] [facility] [address] [id number] [place] [address]- 7126 Jan, [facility] [place] [facility] [address] [id number] [place] [address]- 3314 Jan, [facility] [place] [facility] [address] [id number] [place] [address]- 3710 Jan, [facility] [place] [facility] [address] [id number] [place] [address]- 3173 Jan, [facility] [place] [facility] [address] [id number] [place] [address]- 7853 Jan, [facility] [place] [facility] [address] [id number] [place] [address]- 4138 Jan, [facility] [place] [facility] [address] [id number] [place] [address]- 1482 Dec, [facility] [place] [facility] [address] [id number] [place] [address]- 9011 Dec, [facility] [place] [facility] [address] [id number] [place] [address]- 1024 Dec, [facility] [place] [facility] [address] [id number] [place] [address]- 5497 Dec, [facility] [place] [facility] [address] [id number] [place] [address]- 4963 November, [facility] [place] [facility] [address] [id number] [place] [address]- 8450 November, [facility] [place] [facility] [address] [id number] [place] [address] November, [facility] [place] [facility] [address] [id number] [place] [address] November, [facility] [place] [facility] [address] [id number] [place] [address] Oct, [facility] [place] [facility] [address] [id number] [place] [address] 30 Oct, 2013 [facility] [place] [facility] [address] [id number] [place] [address] Oct, [facility] [place] [facility] [address] [id number] [place] [address] Oct, [facility] [place] [facility] [address] [id number] [place] [address] Oct, [facility] [place] [facility] [address] [id number] [place] [address] Oct, [facility] [place] [facility] [address] [id number] [place] [address] Oct, [facility] [place] [facility] [address] [id number] [place] [address] Oct, [facility] [place] [facility] [address] [id number] [place] [address] Sep, [facility] [place] [facility] [address] [id number] [place] [address] Sep, [facility] [place] [facility] [address] [id number] [place] [address] Sep, [facility] [place] [facility] [address] [id number] [place] [address] Sep, [facility] [place] [facility] [address] [id number] [place] [address] Sep, [facility] [place] [facility] [address] [id number] [place] [address] Sep, [facility] [place] [facility] [address] [id number] [place] [address] Aug, [facility] [place] [facility] [address] [id number] [place] [address] Aug, [facility] [place] [facility] [address] [id number] [place] [address] Jul, [facility] [place] [facility] [address] [id number] [place] [address] Jul, [facility] [address] [id number] [place] [address] Jul, [facility] [place] [facility] [address] [id number] [place] [address] Jul, [facility] [place] [facility] [address] [id number] [place] [address] Jul, [facility] [place] [facility] [address] [id number] [place] [address] Jul, [facility] [place] [facility] [address] [id number] [place] [address] Jul, [facility] [place] [facility] [address] [id number] [place] [address] Jul, [facility] [place] [facility] [address] [id number] [place] [address] Jun, [facility] [place] [facility] [address] [id number] [place] [address] Jun, [facility] [place] [facility] [address] [id number] [place] [address] May, [facility] [place] [facility] [address] [id number] [place] [address] May, [facility] [place] [facility] [address] [id number] [place] [address] Apr, [facility] [place] [facility] [address] [id number] [place] [address] Apr, [facility] [place] [facility] [address] [id number] [place] [address] Apr, [facility] [place] [facility] [address] [id number] [place] [address] Apr, [facility] [place] [facility] [address] [id number] [place] [address] Apr, [facility] [place] [facility] [address] [id number] [place] [address] Apr, [facility] [place] [facility] [address] [id number] [place] [address]- [address] Apr, [facility] [place] [facility] [address] [id number] [place] [address] Apr, [facility] [place] [facility] [address] [id number] [place] [address] Apr, [facility] [place] [facility] [address] [id number] [place] [address] Apr, [facility] [place] [facility] [address] [id number] [place] [address] Apr, [facility] [place] [facility] [address] [id number] [place] [address] Apr, [facility] [place] [facility] [address] [id number], [place] [address] Apr, [facility] [place] [facility] [address] [id number] [place] [address] Apr, [facility] [place] [facility] [address] [id number], [place] [address] Apr, [facility] [place] [facility] [address] [id number], [place] [address] 27 Mar, 2012 [facility] [place] [facility] [address] [id number], [place] [address] 27 Sep, 2012 [facility] [place] [facility] [address] [id number] [place] [address] 26 Sep, 2012 [facility] [place] [facility] [address] [id number], [place] [address] 25 Sep, 2012 [facility] [place] [facility] [address] [id number] [place] [address] 16 Sep, 2012 [facility] [place] [facility] [address] [id number] [place] [address] 03 Mar, 2013 [facility] [place] [facility] [address] [id number] [place] [address] Jan, [facility] [place] [facility] [address] [id number] [place] [address] Jan, [facility] [place] [facility] [address] [id number] [place] [address] Jan, [facility] [place] [facility] [address] [id number] [place] [address] Dec, [facility] [place] [facility] [address] [id number] [place] [address] Oct, [facility] [place] [facility] [address] [id number] [place] [address] May, [facility] [place] [facility] [address] [id number] [place] [address] May, [facility] [place] [facility] [address] [id number] [place] [address] Jun, [facility] [place] [facility] [address] [id number] [place] [address] May, [facility] [place] [facility] [address] [facility] [id number] [place] [address] May, [facility] [place] [facility] [address] [id number] [place] [address] May, [facility] [place] [facility] [address] [id number] [place] [address] 14 Apr, 2011 [facility] [place] [facility] [address] [id number] [place] [address] Apr, [facility] [place] [facility] [address] [id number] [place] [address] Feb, [facility] [place] [facility] [address] [id number] [place] [address] Feb, [facility] [place] [facility] [address] [id number] [place] [address] 10 Dec, 2010 [facility] [place] [facility] [address] [id number] [place] [address] 12 Oct, 2010 [facility] [place] [facility] [address] [id number] [place] [address]46 19 Sep, 2010 [facility] [place] [facility] [address] [id number] [place] [address] 10 Sep, 2010 [facility] [place] [facility] [address] [id number] [place] [address] 20 Jul, 2010 [facility] [place] [facility] [address] [id number] [place] [address] Jul, [facility] [place] [facility] [address] [id number] [place] [address] 28 Jun, 2010 [facility] [place] [facility] [address] [id number] [place] [address] 23 Jun, 2010 [facility] [place] [facility] [address] [id number] [place] [address] 14 Jun, 2010 [facility] [place] [facility] [address] [id number] [place] [address] 14 Jun, 2010 [facility] [place] [facility] [address] [id number] [place] [address] 2547 08 Jun, 2010 [facility] [place] [facility] [address] [id number] [place] [address]45 30 May, 2010 [facility] [place] [facility] [address] [id number] [place] [address] 23 May, 2010 [facility] [place] [facility] [address] [id number] [place] [address] 2546 17 May, 2010 [facility] [place] [facility] [address] [id number] [place] [address] 2542 17 May, 2010 [facility] [place] [facility] [address] [id number] [place] [address] May, [facility] [address] [id number], [place] [address] May, [facility] [address], [place] [address] Apr, [facility] [id number], [place] [address] Apr, [facility] [id number], [place] [address] Mar, [facility] [id number], [place] [address] Feb, [facility] [id number], [place] [address] Sep, [facility] [id number], [place] [address] Sep, [facility] [id number], [place] [address] Aug, [facility] [address], [place] [address] Jun, [facility] [id number], [place] [address] Jun, [facility] [address] [id number], [place] [address] May, [facility] [id number], [place] [address] Dec, [facility] [address] [id number], [place] [address] Sep, IMMUNIZATIONS No Known Immunizations SOCIAL HISTORY Never Assessed REASON FOR VISIT Controlled Med Refill 11/26/17 PLAN OF CARE VITAL SIGNS MEDICATIONS Medication Instructions Dosage Frequency Start Date End Date Duration Status Dextroamphetamine Sulfate 10 MG Orally Three times a day 2 tablets 8h November, 28 days Active [place] 5-325 MG Orally 3 times a day 1 tablet as needed 8h November, 28 days Active Xanax 1 MG Orally Twice a day 1 tablet 12h 04 Jun, 2017 28 days Active RESULTS No Results PROCEDURES [...]
--- OUTSIDE RECORDS SUMMARY | 2018-06-27 07:28 | XMS REPORT ---
Author Author ARABELLA DIXON Organization [facility] Address [address] [place] [address] Care Team Providers Care Hse Manager Name Role Phone ARABELLA DIXON Unavailable PROBLEMS Type Condition ICD9-CM Code EWO83-MV Code Onset Dates Condition Status SNOMED Code Problem Lumbago with sciatica, right side M54.41 Active [id number] Problem Diabetes type 2, controlled E11.9 Active 80238536 Problem Other chronic pain G89.29 Active 85772202 Problem High risk medications (not anticoagulants) long-term use Z79.899 Active 961716663 Problem Obstructive sleep apnea syndrome G47.33 Active 68370918 Problem Lumbago with sciatica, left side M54.42 Active 477468340 Problem Bilateral low back pain with sciatica, sciatica laterality unspecified M54.40 Active 25479680 Problem Essential hypertension I10 Active 15000630 Problem Migraine without aura and without status migrainosus, not intractable G43.009 Active 422363831 Problem Morbid obesity due to excess calories E66.01 Active 714249388 Problem Mood disorder F39 Active 51894144 Problem Anxiety F41.9 Active 67670065 ALLERGIES No Information ENCOUNTERS Encounter Location Date Diagnosis [facility] [id number] [place] [address] 88036- 1797 Feb, [facility] [id number] [place] [address] 31723- 6804 Feb, Bilateral low back pain with sciatica, sciatica laterality unspecified M54.40 and Diabetes type 2, controlled E11.9 [facility] [id number] [place] [address] 17470- 4030 Jan, Morbid obesity due to excess calories E66.01 [facility] [id number] [address] 8982 Jan, [place] [address] [address] 8884 Jan, Diabetes type 2, controlled E11.9 [place] [id number] [place] [address] 65874- 2871 Jan, Diabetes type 2, controlled E11.9 [place] [id number] [place] [address] 98783- 6142 Jan, Bilateral low back pain with sciatica, sciatica laterality unspecified M54.40 and Dysfunction of both eustachian tubes H69.83 [place] [id number] [place] [address] 32327- 8907 Jan, Morbid obesity due to excess calories E66.01 [place] [id number] [place] [address] 21662- 0610 Dec, Diabetes type 2, controlled E11.9 [place] [id number] [place] [address] 96629- 7012 Dec, Morbid obesity due to excess calories E66.01 ; Essential hypertension I10 ; Tobacco abuse Z72.0 and Tobacco abuse counseling Z71.6 [place] [address] [address]- 5327 November, Diabetes type 2, controlled E11.9 [place] [address] [address]- 1845 Oct, Diabetes type 2, controlled E11.9 [place] [address] [address]- 6887 Sep, Diabetes type 2, controlled E11.9 [place] [address], [place] [address]- 9418 Sep, [place] [id number] [place] [address] 17869- 6968 Aug, Diabetes type 2, controlled E11.9 and Morbid obesity due to excess calories E66.01 [place] [address] [place] [address] 8761 Jul, Anxiety F41.9 [facility] [id number] [place] [address] 31808- 9312 Jul, [facility] [id number] [place] [address] 52089- 5079 Jul, Anxiety F41.9 ; Mood disorder F39 ; Morbid obesity due to excess calories E66.01 and Diabetes type 2, controlled E11.9 [facility] [id number] [place] [address] 70003- 3263 Jun, Anxiety F41.9 [facility] [id number] [place] [address] 20499- 9190 Jun, Anxiety F41.9 ; Morbid obesity due to excess calories E66.01 and Diabetes type 2, controlled E11.9 [place] [id number] [place] [address] 84630- 0997 May, Migraine without aura and without status migrainosus, not intractable G43.009 ; Diabetes type 2, controlled E11.9 and Morbid obesity due to excess calories E66.01 [place] [id number] [place] [address] 28032- 5037 Apr, Migraine without aura and without status migrainosus, not intractable G43.009 ; Diabetes type 2, controlled E11.9 and Morbid obesity due to excess calories E66.01 [facility] [id number] [place] [address] 17456- 8799 Apr, Diabetes type 2, controlled E11.9 and Morbid obesity due to excess calories E66.01 [place] [id number] [place] [address] 78907- 1179 Mar, Diabetes type 2, controlled E11.9 and Morbid obesity due to excess calories E66.01 [facility] [id number] [place] [address] 51435- 0659 Mar, Diabetes type 2, controlled E11.9 and Mood disorder F39 [place] [id number] [place] [address] 69017- 2111 Feb, Morbid obesity due to excess calories E66.01 and Diabetes type 2, controlled E11.9 [facility] [id number] [place] [address] 56267- 1152 Jan, Diabetes type 2, controlled E11.9 and Morbid obesity due to excess calories E66.01 [place] [id number] [place] [address] 29095- 1521 Dec, Diabetes type 2, controlled E11.9 and Morbid obesity due to excess calories E66.01 [place] [address] 39649- 8406 Dec, Morbid obesity due to excess calories E66.01 [place] [id number] [place] [address] 93759- 9941 November, Diabetes type 2, controlled E11.9 and Morbid obesity due to excess calories E66.01 [place] [id number] [place] [address] 52586- 0216 November, Anxiety F41.9 and Injury of right foot, initial encounter S99.921A [place] [id number] [place] [address] 93936- 1041 November, Diabetes type 2, controlled E11.9 and Morbid obesity due to excess calories E66.01 [place] [id number] [place] [address] 56840- 1761 November, [place] [id number] [place] [address] 23673- 3774 Oct, Family history of brain aneurysm Z82.49 and Migraine without aura and without status migrainosus, not intractable G43.009 [facility] [id number] [place] [address] 54102- 7156 Oct, Diabetes type 2, controlled E11.9 [place] [id number] [place] [address] 04196- 3832 Oct, Morbid obesity due to excess calories E66.01 ; Family history of brain aneurysm Z82.49 and Migraine without aura and without status migrainosus, not intractable G43.009 [facility] [id number] [place] [address] 37990- 6937 Oct, Diabetes type 2, controlled E11.9 and Morbid obesity due to excess calories E66.01 [facility] [id number] [place] [address] 63467- 3975 Sep, [facility] [address] 83900- 9355 Sep, Diabetes type 2, controlled E11.9 [place] [id number] [place] [address] 15996- 7709 Sep, Morbid obesity due to excess calories E66.01 [place] [address] 36193- 0172 Aug, Exposure to hepatitis C Z20.5 [place] [id number] [place] [address] 13548- 3472 Aug, Diabetes type 2, controlled E11.9 [place] [id number] [place] [address] 63976- 1858 Jul, Exposure to hepatitis C Z20.5 [place] [id number] [place] [address] 19819- 0851 Jul, Exposure to hepatitis C Z20.5 [facility] [id number] [place] [address] 48319- 6779 Jul, [facility] [address] 25940- 6455 Jul, Diabetes type 2, controlled E11.9 [facility] [id number] [place] [address] 84337- 4152 Jun, [facility] [address] 82490- 5389 Jun, Diabetes type 2, controlled E11.9 ; Pain of left foot M79.672 and Pain in right foot M79.671 [facility] [id number] [address]- 8228 May, [facility] [id number], [place] [address]- 6951 Apr, [facility] [id number] [place] [address] 05107- 7292 Apr, [facility] [id number], [place] [address]- 8660 Mar, [facility] [id number] [place] [address] 16210- 2536 Feb, [facility] [id number] [address]- 9340 Feb, [facility] [id number] [place] [address] 03387- 3529 Jan, [facility] [id number] [address]- 3726 Dec, Diabetes type 2, controlled E11.9 ; 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 and Abscess, abdomen K65.1 [facility] [address], [place] [address]- 5856 Dec, Shoulder pain, right 719.41 [facility] [id number] [address]- 4523 November, [facility] [id number] [address]- 7787 November, [facility] [id number] 2449 Oct, [facility] [address], [place] [address]- 1541 Sep, [facility] [id number] [place] [address] 61909- 7122 Sep, [facility] [id number] [place] [address] 98908 -3158 Aug, [facility] [id number] [place] [address] 61631- 9701 Aug, [facility] [id number] [place] [address] 84678- 7847 Aug, Cellulitis, unspecified L03.90 ; Cutaneous abscess, unspecified L02.91 ; Diabetes type 2, controlled E11.9 ; Migraine G43.909 and Bilateral low back pain with sciatica, sciatica laterality unspecified M54.40 [facility] [id number] [place] [address] 69785 -2487 13 Aug, 2015 Abscess and cellulitis L03.90 [place] [id number] [place] [address] 59753- 7865 Aug, [facility] [id number] [place] [address] 70120- 3353 Aug, [place] [id number] [place] [address] 54515- 9241 Jul, [place] [id number] [place] [address] 16261- 4263 Jul, Diabetes type 2, controlled E11.9 [facility] [id number] [place] [address] 65006- 5159 Jul, Diabetes type 2, controlled E11.9 [facility] [id number] [place] [address] 18699- 6420 Jun, Diabetes type 2, controlled E11.9 ; Bilateral low back pain with sciatica, sciatica laterality unspecified M54.40 and Morbid obesity, unspecified obesity type E66.01 [facility] [id number] [place] [address] 32347- 6013 Jun, [facility] [address] [facility] [id number] [address]- 3305 May, [facility] [id number] [place] [address]- 2791 Apr, [facility] [address] [facility] [id number] [place] [address]- 8552 Apr, [facility] [id number] [place] [address], [place] [address]- 1095 Apr, [facility] [address] [facility] [id number] [place] [address]- 5806 Mar, [facility] [address] 4719 Mar, [facility] [address]- 3079 Mar, [facility] [address], [place] [address]- 2651 Feb, [facility] [address], [place] [address]- 3973 Feb, [facility] [address], [place] [address]- 3271 Feb, [facility] [address], [place] [address]- 0322 Feb, [facility] [address], [place] [address]- 3185 Feb, Diabetes mellitus without mention of complication, type II or unspecified type, not stated as uncontrolled 250.00 [facility] [id number] [address]- 4475 Feb, [facility] [address] 6143 Feb, [facility] [address] 2258 Jan, Diabetes mellitus without mention of complication, type II or unspecified type, not stated as uncontrolled 250.00 and Cellulitis and abscess 682.9 [facility] [id number] [place] [address] 42490- 7432 Jan, [facility] [id number] [place] [address] 15979- 5006 Jan, [facility] [id number] [place] [address] 24428- 9487 Jan, [facility] [address] [facility] [id number] [place] [address] 93337- 6147 Dec, [facility] [id number] [place] [address] 44670- 2761 Dec, [facility] [id number] [place] [address] 70444- 1492 Dec, [facility] [id number] [place] [address] 47319- 9022 November, [facility] [id number] [place] [address] 46111- 7535 Oct, Shoulder pain, right 719.41 [facility] [id number] [place] [address] 61507- 0923 Oct, [facility] [address], [place] [address]- 9681 Oct, [facility] [address], [place] [address]- 1434 Sep, [facility] [id number], [place] [address]- 5038 Sep, [facility] [id number] [place] [address] 17370- 8188 Sep, [facility] [address], [place] [address]- 9714 Sep, [facility] [id number] [place] [address], [place] [address]- 1650 24 Sep, 2014 [facility] [place] [facility] [address] [id number] [place] [address]- 1408 24 Sep, 2014 [facility] [place] [facility] [address] [id number] [place] [address]- 2448 14 Sep, 2014 [facility] [place] [facility] [address] [id number] [place] [address]- 3707 14 Sep, 2014 [facility] [place] [facility] [address] [id number] [place] [address]- 2126 24 Aug, 2014 [facility] [place] [facility] [address] [id number] [place] [address]- 0212 24 Aug, 2014 [facility] [place] [facility] [address] [id number] [place] [address]- 4123 Aug, [facility] [place] [facility] [address] [id number] [place] [address]- 7106 Aug, [facility] [place] [facility] [address] [id number] [place] [address]- 6068 Jul, [facility] [place] [facility] [address] [id number] [place] [address]- 6054 Jul, [facility] [place] [facility] [address] [id number] [place] [address]- 5492 Jul, [facility] [place] [facility] [address] [id number] [place] [address]- 2440 Jul, [facility] [place] [facility] [address] [id number] [place] [address]- 1559 Jul, [facility] [place] [facility] [address] [id number] [place] [address]- 1492 Jul, [facility] [place] [facility] [address] [id number] [place] [address]- 7943 Jun, [facility] [place] [facility] [address] [id number] [place] [address]- 9944 Jun, [facility] [place] [facility] [address] [id number] [place] [address]- 9616 Jun, [facility] [place] [facility] [address] [id number] [place] [address]- 3881 19 Jun, 2014 [facility] [place] [facility] [address] [id number] [place] [address]- 5161 18 Jun, 2014 [facility] [place] [facility] [address] [id number] [place] [address]- 7601 Jun, [facility] [place] [facility] [address] [id number] [place] [address]- 8096 Jun, [facility] [place] [facility] [address] [id number] [place] [address]- 6854 Jun, [facility] [place] [facility] [address] [id number] [place] [address]- 2841 May, [facility] [place] [facility] [address] [id number] [place] [address]- 4085 May, [facility] [place] [facility] [address] [id number] [place] [address]- 8304 May, [facility] [place] [facility] [address] [id number] [place] [address]- 5413 May, [facility] [place] [facility] [address] [id number] [place] [address]- 0762 May, [facility] [place] [facility] [address] [id number], [place] [address]- 0825 May, [facility] [place] [facility] [address] [id number] [place] [address]- 0108 Apr, [facility] [place] [facility] [address] [id number] [place] [address]- 6033 Apr, [facility] [place] [facility] [address] [id number] [place] [address]- 1407 Apr, [facility] [place] [facility] [address] [id number], [place] [address]- 1142 Apr, [facility] [place] [facility] [address] [id number] [place] [address]- 1897 Apr, [facility] [place] [facility] [address] [id number] [place] [address]- 6276 Apr, [facility] [place] [facility] [address] [id number] [place] [address]- 1716 Apr, [facility] [place] [facility] [address] [id number] [place] [address]- 6099 Mar, [facility] [place] [facility] [address] [id number] [place] [address]- 6614 Mar, [facility] [place] [facility] [address] [id number] [place] [address]- 3905 Mar, [facility] [place] [facility] [address] [id number] [place] [address]- 0195 Mar, [facility] [place] [facility] [address] [id number] [place] [address]- 5815 Feb, [facility] [place] [facility] [address] [id number] [place] [address]- 2395 Feb, [facility] [place] [facility] [address] [id number] [place] [address]- 8875 Feb, [facility] [place] [facility] [address] [id number] [place] [address]- 3996 Feb, [facility] [place] [facility] [address] [id number] [place] [address]- 9029 Feb, [facility] [place] [facility] [address] [id number] [place] [address]- 3544 Feb, [facility] [place] [facility] [address] [id number] [place] [address]- 9169 Jan, [facility] [place] [facility] [address] [id number] [place] [address]- 0568 Jan, [facility] [place] [facility] [address] [id number] [place] [address] Jan, [facility] [place] [facility] [address] [id number] [place] [address] Jan, [facility] [place] [facility] [address] [id number] [place] [address] Jan, [facility] [place] [facility] [address] [id number] [place] [address] Jan, [facility] [place] [facility] [address] [id number] [place] [address] Jan, [facility] [place] [facility] [address] [id number] [place] [address] Jan, [facility] [place] [facility] [address] [id number] [place] [address] Jan, [facility] [place] [facility] [address] [id number] [place] [address] Jan, [facility] [place] [facility] [address] [id number] [place] [address] Dec, [facility] [place] [facility] [address] [id number] [place] [address] Dec, [facility] [place] [facility] [address] [id number] [place] [address] Dec, [facility] [place] [facility] [address] [id number] [place] [address] Dec, [facility] [place] [facility] [address] [id number] [place] [address] November, [facility] [place] [facility] [address] [id number] [place] [address] November, [facility] [place] [facility] [address] [id number] [place] [address] November, [facility] [place] [facility] [address] [id number] [id number] [id number] November, [facility] [place] [facility] [address] [id number] [place] [address] Oct, [facility] [place] [facility] [address] [id number] [place] [address] Oct, [facility] [place] [facility] [address] [id number] [place] [address] Oct, [facility] [place] [facility] [address] [id number] [place] [address] Oct, [facility] [place] [facility] [address] [id number] [place] [address] Oct, [facility] [place] [facility] [address] [id number] [place] [address] Oct, [facility] [place] [facility] [address] [id number] [place] [address] Oct, [facility] [place] [facility] [address] [id number] [place] [address] Oct, [facility] [place] [facility] [address] [id number] [place] [address] Sep, [facility] [place] [facility] [address] [id number] [place] [address] Sep, [facility] [place] [facility] [address] [id number] [place] [address] Sep, [facility] [place] [facility] [address] [id number] [place] [address] Sep, [facility] [place] [facility] [address] [id number] [place] [address] Sep, [facility] [place] [facility] [address] [id number] [place] [address] Sep, [facility] [place] [facility] [address] [id number] [place] [address] Aug, [facility] [place] [facility] [address] [id number] [place] [address] Aug, [facility] [place] [facility] [address] [id number] [place] [address] Jul, [facility] [place] [facility] [address] [id number] [place] [address] Jul, [facility] [place] [facility] [address] [id number] [place] [address] Jul, [facility] [place] [facility] [address] [id number] [place] [address] Jul, [facility] [place] [facility] [address] [id number] [place] [address] Jul, [facility] [place] [facility] [address] [id number] [place] [address] Jul, [facility] [place] [facility] [address] [id number] [place] [address] Jul, [facility] [place] [facility] [address] [id number] [place] [address] Jul, [facility] [place] [facility] [address] [id number] [place] [address] Jun, [facility] [place] [facility] [address] [facility] [id number] [place] [address] Jun, [facility] [place] [facility] [address] [id number] [place] [address] May, [facility] [place] [facility] [address] [id number] [place] [address] May, [facility] [place] [facility] [address] [id number] [place] [address] Apr, [facility] [place] [facility] [address] [id number] [place] [address] Apr, [facility] [place] [facility] [address] [id number] [place] [address] Apr, [facility] [place] [facility] [address] [id number] [place] [address] Apr, [facility] [place] [facility] [address] [id number] [place] [address] Apr, [facility] [place] [facility] [address] [id number] [place] [address] Apr, [facility] [place] [facility] [address] [id number] [place] [address] Apr, [facility] [place] [facility] [address] [id number] [place] [address] Apr, [facility] [place] [facility] [address] [id number] [place] [address] Apr, [facility] [place] [facility] [address] [id number] [place] [address] Apr, [facility] [place] [facility] [address] [id number] [place] [address] Apr, [facility] [place] [facility] [address] [id number] [place] [address] Apr, [facility] [place] [facility] [address] [id number] [place] [address] Apr, [facility] [place] [facility] [address] [id number] [place] [address] Apr, [facility] [place] [facility] [address] [id number], [place] [address] Apr, [facility] [place] [facility] [address] [id number] [place] [address] Mar, [facility] [place] [facility] [address] [id number] [place] [address] 27 Mar, 2013 [facility] [place] [facility] [address] [id number] [place] [address] 26 Mar, 2013 [facility] [place] [facility] [address] [id number] [place] [address]46 25 Mar, 2013 [facility] [place] [facility] [address] [id number] [place] [address] 16 Mar, 2013 [facility] [place] [facility] [address] [id number] [place] [address] Mar, [facility] [place] [facility] [address] [id number] [place] [address] Jan, [facility] [place] [facility] [address] [id number] [place] [address] Jan, [facility] [place] [facility] [address] [id number] [place] [address] Jan, [facility] [place] [facility] [address] [id number] [place] [address] Dec, [facility] [place] [facility] [address] [id number] [place] [address] Oct, [facility] [place] [facility] [address] [id number] [place] [address] May, [facility] [place] [facility] [address] [id number] [place] [address] May, [facility] [place] [facility] [address] [id number] [place] [address] Jun, [facility] [place] [facility] [address] [id number], [place] [address] May, [facility] [place] [facility] [address] [id number], [place] [address] May, [facility] [place] [facility] [address] [id number] [place] [address] May, [facility] [place] [facility] [address] [id number][place] [address] 14 Apr, 2011 [facility] [place] [facility] [address] [id number] [place] [address] 47[address] 13 Apr, 2011 [facility] [place] [facility] [address] [id number] [place] [address] 2546 17 Feb, 2011 [facility] [address] [id number] [place] [address] 16 Feb, 2011 [facility] [address] [id number] [place] [address] 24[address] 10 Dec, 2010 [facility] [address] [id number] [place] [address]- [address]26 12 Oct, 2010 [facility] [address] [id number] [place] [address] 19 Sep, 2010 [facility] [address] [id number] [place] [address]44 10 Sep, 2010 [facility] [address] [id number] [place] [address] 20 Jul, 2010 [facility] [address] [id number] [place] [address] Jul, [facility] [address] [id number] [place] [address] 28 Jun, 2010 [facility] [address] [id number] [place] [address]- [address] 23 Jun, 2010 [facility] [address] [id number] [place] [address] 38[address] 14 Jun, 2010 [facility] [address] [id number] [place] [address] 2542 14 Jun, 2010 [facility] [address] [id number] [place] [address]- [address]46 08 Jun, 2010 [facility] [place] [facility] [address] [id number] [place] [address] 30 May, 2010 [facility] [place] [facility] [address] [id number] [place] [address]46 23 May, 2010 [facility] [address] [id number] [place] [address] May, [facility] [address] [facility] [id number], [place] [address] 17 May, 2010 [facility] [address] [facility] [id number], [place] [address] May, [facility] [address] [facility] [id number], [place] [address]99 May, [facility] [address] [facility] [id number] [place] [address] 5739 Apr, [facility] [address] [facility] [id number] [place] [address] Apr, [facility] [address] [facility] [id number][place] [address] Mar, [facility] [address] [facility] [id number], [place] [address] Feb, [facility] [address] [facility] [id number][place] [address] Sep, [facility] [address] [facility] [id number][place] [address] Sep, [facility] [address] [facility] [id number], [place] [address] Aug, [facility] [address] [facility] [id number], [place] [address]- [address] Jun, [facility] [address] [facility] [id number], [place] [address] Jun, [facility] [address] [facility] [id number], [place] [address] 269[address] May, [facility] [address] [facility] [id number], [place] [address] Dec, [facility] [address] [facility] [id number], [place] [address] Sep, IMMUNIZATIONS No Known Immunizations SOCIAL HISTORY Never Assessed REASON FOR VISIT Controlled Med Refill 12/24/17 PLAN OF CARE VITAL SIGNS MEDICATIONS Medication Instructions Dosage Frequency Start Date End Date Duration Status Xanax 1 MG Orally Twice a day 1 tablet 12h Jun, 28 days Active Dextroamphetamine Sulfate 10 MG Orally Three times a day 2 tablets 8h 13 Dec, 2017 28 days Active RESULTS No Results [...]
--- OUTSIDE RECORDS SUMMARY | 2018-06-27 07:29 | XMS REPORT ---
Author Author ARABELLA DIXON Organization [facility] Address [address] [place] [address] Care Team Providers Care Computer Numerical Control Programmer Name Role Phone ARABELLA DIXON Unavailable PROBLEMS Type Condition ICD9-CM Code XQR60-DM Code Onset Dates Condition Status SNOMED Code Problem Lumbago with sciatica, right side M54.41 Active 021386143393387 Problem Diabetes type 2, controlled E11.9 Active 89536483 Problem Other chronic pain G89.29 Active 19888969 Problem High risk medications (not anticoagulants) long-term use Z79.899 Active 191213040 Problem Obstructive sleep apnea syndrome G47.33 Active 48341346 Problem Lumbago with sciatica, left side M54.42 Active 856416055 Problem Bilateral low back pain with sciatica, sciatica laterality unspecified M54.40 Active 56634031 Problem Essential hypertension I10 Active 71327502 Problem Migraine without aura and without status migrainosus, not intractable G43.009 Active 517168673 Problem Morbid obesity due to excess calories E66.01 Active 694557811 Problem Mood disorder F39 Active 11328861 Problem Anxiety F41.9 Active 41857423 ALLERGIES No Information ENCOUNTERS Encounter Location Date Diagnosis [place] [id number] [address] Feb, [facility] [id number] [address] Jan, Morbid obesity due to excess calories E66.01 [facility] [id number] [place] [address] 22345- 3676 Jan, [facility] [id number] [address] 5312 Jan, Diabetes type 2, controlled E11.9 [facility] [id number] [place] [address] 16309- 4036 Jan, Diabetes type 2, controlled E11.9 [facility] [id number] [place] [address] 12492- 0199 Jan, Bilateral low back pain with sciatica, sciatica laterality unspecified M54.40 and Dysfunction of both eustachian tubes H69.83 [place] [id number] [place] [address] 75328- 4991 Jan, Morbid obesity due to excess calories E66.01 [place] [id number] [place] [address] 65634- 3635 Dec, Diabetes type 2, controlled E11.9 [place] [id number] [place] [address] 59874- 8294 Dec, Morbid obesity due to excess calories E66.01 ; Essential hypertension I10 ; Tobacco abuse Z72.0 and Tobacco abuse counseling Z71.6 [place] [id number] [place] [address] 37507- 3367 November, Diabetes type 2, controlled E11.9 [place] [id number] [place] [address] 57120- 6917 Oct, Diabetes type 2, controlled E11.9 [facility] [id number] [place] [address] 32848- 7011 Sep, Diabetes type 2, controlled E11.9 [place] [id number] [address]- 8765 Sep, [facility] [id number] [place] [address] 03102- 5875 Aug, Diabetes type 2, controlled E11.9 and Morbid obesity due to excess calories E66.01 [place] [id number] [place] [address] 62165- 3932 Jul, Anxiety F41.9 [place] [id number] [place] [address] 29371- 6743 Jul, [facility] [address] [address] 5794 Jul, Anxiety F41.9 ; Mood disorder F39 ; Morbid obesity due to excess calories E66.01 and Diabetes type 2, controlled E11.9 [facility] [address] [address]- 7363 Jun, Anxiety F41.9 [facility] [id number] [place] [address] 33818- 7285 Jun, Anxiety F41.9 ; Morbid obesity due to excess calories E66.01 and Diabetes type 2, controlled E11.9 [place] [id number] [place] [address] 30022- 5275 May, Migraine without aura and without status migrainosus, not intractable G43.009 ; Diabetes type 2, controlled E11.9 and Morbid obesity due to excess calories E66.01 [place] [id number] [place] [address] 97778- 1126 Apr, Migraine without aura and without status migrainosus, not intractable G43.009 ; Diabetes type 2, controlled E11.9 and Morbid obesity due to excess calories E66.01 [place] [id number] [place] [address] 21341- 3475 Apr, Diabetes type 2, controlled E11.9 and Morbid obesity due to excess calories E66.01 [place] [address] [address]- 5887 Mar, Diabetes type 2, controlled E11.9 and Morbid obesity due to excess calories E66.01 [place] [id number] [address]- 0927 Mar, Diabetes type 2, controlled E11.9 and Mood disorder F39 [facility] [id number] [address]- 6614 Feb, Morbid obesity due to excess calories E66.01 and Diabetes type 2, controlled E11.9 [place] [address] [address]- 8693 Jan, Diabetes type 2, controlled E11.9 and Morbid obesity due to excess calories E66.01 [place] [id number] [place] [address] 96015- 0779 Dec, Diabetes type 2, controlled E11.9 and Morbid obesity due to excess calories E66.01 [place] [id number] [place] [address] 02089- 8414 Dec, Morbid obesity due to excess calories E66.01 [place] [id number] [place] [address] 48944- 7228 November, Diabetes type 2, controlled E11.9 and Morbid obesity due to excess calories E66.01 [place] [id number] [place] [address] 14308- 4638 November, Anxiety F41.9 and Injury of right foot, initial encounter S99.921A [place] [id number] [place] [address] 05080- 7885 November, Diabetes type 2, controlled E11.9 and Morbid obesity due to excess calories E66.01 [place] [id number] [place] [address] 78451- 1144 November, [place] [id number] [place] [address] 40680- 3537 Oct, Family history of brain aneurysm Z82.49 and Migraine without aura and without status migrainosus, not intractable G43.009 [place] [address] [address]- 7100 Oct, Diabetes type 2, controlled E11.9 [place] [id number] [place] [address] 67111- 2092 Oct, Morbid obesity due to excess calories E66.01 ; Family history of brain aneurysm Z82.49 and Migraine without aura and without status migrainosus, not intractable G43.009 [place] [address] [address]- 5980 Oct, Diabetes type 2, controlled E11.9 and Morbid obesity due to excess calories E66.01 [facility] [id number] [place] [address] 54881- 2017 Sep, [facility] [id number] [place] [address] 91623- 5352 Sep, Diabetes type 2, controlled E11.9 [facility] [id number] [place] [address] 17996- 0805 Sep, Morbid obesity due to excess calories E66.01 [facility] [id number] [place] [address] 54182- 6366 Aug, Exposure to hepatitis C Z20.5 [facility] [id number] [place] [address] 07538- 8417 Aug, Diabetes type 2, controlled E11.9 [facility] [id number] [place] [address] 22313- 3932 Jul, Exposure to hepatitis C Z20.5 [facility] [id number] [place] [address] 55089- 1726 Jul, Exposure to hepatitis C Z20.5 [facility] [id number] [place] [address] 77888- 6964 Jul, [facility] [id number] [place] [address] 82850- 2735 Jul, Diabetes type 2, controlled E11.9 [facility] [id number] [place] [address] 45016- 7079 Jun, [facility] [id number] [place] [address] 39731- 5489 Jun, Diabetes type 2, controlled E11.9 ; Pain of left foot M79.672 and Pain in right foot M79.671 [facility] [id number] [place] [address] 16004- 2546 May, [facility] [address] 6949 Apr, [facility] [address] [address]- 2271 Apr, [facility] [address] [address]- 5033 Mar, [facility] [id number] [place] [address] 76952- 0407 Feb, [facility] [id number] [place] [address] 49053- 5675 Feb, [facility] [id number] [place] [address] 833516- 1753 Jan, [facility] [id number] [place] [address] 640440- 3436 Dec, Diabetes type 2, controlled E11.9 ; 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 and Abscess, abdomen K65.1 [facility] [address] [address]- 5909 Dec, Shoulder pain, right 719.41 [facility] [address] [address]- 1611 November, [facility] [id number] 4897 November, [facility] [id number] [address]- 5452 Oct, [facility] [id number] 9251 Sep, [facility] [id number] 1154 Sep, [facility] [address] [address] -5677 Aug, [facility] [id number] [address]- 6894 18 Aug, 2015 [facility] [id number] [place] [address] 60792- 4117 17 Aug, 2015 Cellulitis, unspecified L03.90 ; Cutaneous abscess, unspecified L02.91 ; Diabetes type 2, controlled E11.9 ; Migraine G43.909 and Bilateral low back pain with sciatica, sciatica laterality unspecified M54.40 [facility] [address] [address] -0263 13 Aug, 2015 Abscess and cellulitis L03.90 [facility] [id number] [place] [address] 52243- 4614 11 Aug, 2015 [facility] [id number] [place] [address] 47134- 3386 Aug, [facility] [id number] [place] [address] 10541- 4694 Jul, [facility] [id number] [place] [address] 06021- 6062 Jul, Diabetes type 2, controlled E11.9 [facility] [id number] [place] [address] 51572- 6066 Jul, Diabetes type 2, controlled E11.9 [facility] [id number] [place] [address] 84188- 5562 Jun, Diabetes type 2, controlled E11.9 ; Bilateral low back pain with sciatica, sciatica laterality unspecified M54.40 and Morbid obesity, unspecified obesity type E66.01 [facility] [id number] [place] [address] 67627- 2661 Jun, [facility] [id number] [place] [address] 40926- 0598 May, [facility] [id number] [place] [address] 74156- 8213 Apr, [facility] [id number] [address]- 0525 Apr, [facility] [address] [address]- 0346 Apr, [facility] [id number] [address]- 4436 Mar, [facility] [id number] [address]- 2270 Mar, [facility] [id number] [place] [address]- 7074 Mar, [facility] [address] [address]- 0752 Feb, [facility] [id number] [address]- 8748 Feb, [facility] [address] [address]- 4303 Feb, [facility] [address]- 8826 Feb, [facility] [id number] 2425 Feb, Diabetes mellitus without mention of complication, type II or unspecified type, not stated as uncontrolled 250.00 [facility] [id number] [address]- 2945 Feb, [facility] [id number] [address]- 9537 Feb, [facility] [id number] [address]- 4571 Jan, Diabetes mellitus without mention of complication, type II or unspecified type, not stated as uncontrolled 250.00 and Cellulitis and abscess 682.9 [facility] [id number] 5711 Jan, [facility] [address] [id number] [place] [address]- 1127 Jan, [facility] [address] [id number] [place] 9949 Jan, [facility] [address] [id number] [place] 5531 Dec, [facility] [address] [id number] [place] [address]- 5592 Dec, [facility] [address] [id number] [place] [address]- 3847 Dec, [facility] [address] [id number] [place] [address]- 2783 November, [facility] [address] [id number] [place] [address]- 8868 Oct, Shoulder pain, right 719.41 [facility] [address] [id number] [place] [address]- 6248 Oct, [facility] [address] [id number] [place] [address]- 4752 Oct, [facility] [address] [id number] [place] [address]- 2040 Sep, [facility] [address] [id number] [place] [address]- 5592 Sep, [facility] [place] [facility] [address] [id number] [place] [address]- 2822 Sep, [facility] [place] [facility] [address] [id number] [place] [address]- 7389 Sep, [facility] [place] [facility] [address] [id number] [place] [address]- 5713 Sep, [facility] [place] [facility] [address] [id number] [place] [address]- 7885 Sep, [facility] [place] [facility] [address] [id number] [place] [address]- 1207 14 Sep, 2014 [facility] [place] [facility] [address] [id number] [place] [address]- 8811 14 Sep, 2014 [facility] [place] [facility] [address] [id number] [place] [address]- 9611 24 Aug, 2014 [facility] [place] [facility] [address] [id number] [place] [address]- 0937 24 Aug, 2014 [facility] [place] [facility] [address] [id number] [place] [address]- 8962 Aug, [facility] [place] [facility] [address] [id number] [place] [address]- 3790 Aug, [facility] [place] [facility] [address] [id number] [place] [address]- 4561 Jul, [facility] [place] [facility] [address] [id number] [place] [address]- 2596 Jul, [facility] [place] [facility] [address] [id number] [place] [address]- 7537 Jul, [facility] [place] [facility] [address] [id number] [place] [address]- 4987 Jul, [facility] [place] [facility] [address] [id number] [place] [address]- 8784 Jul, [facility] [place] [facility] [address] [id number] [place] [address]- 3798 Jul, [facility] [place] [facility] [address] [id number] [place] [address]- 9954 Jun, [facility] [place] [facility] [address] [id number] [place] [address]- 3415 Jun, [facility] [place] [facility] [address] [id number] [place] [address]- 9756 Jun, [facility] [place] [facility] [address] [id number] [place] [address]- 1490 Jun, [facility] [place] [facility] [address] [id number] [place] [address]- 6683 Jun, [facility] [place] [facility] [address] [id number] [place] [address]- 3538 Jun, [facility] [place] [facility] [address] [id number] [place] [address]- 9425 Jun, [facility] [place] [facility] [address] [id number] [place] [address]- 6087 Jun, [facility] [place] [facility] [address] [id number] [place] [address]- 7815 May, [facility] [place] [facility] [address] [id number] [place] [address]- 0532 May, [facility] [place] [facility] [address] [id number] [place] [address]- 9870 May, [facility] [place] [facility] [address] [id number] [place] [address]- 0891 May, [facility] [place] [facility] [address] [id number] [place] [address]- 6911 May, [facility] [place] [facility] [address] [id number] [place] [address]- 0885 May, [facility] [place] [facility] [address] [id number] [address]- 5689 Apr, [facility] [place] [facility] [address] [id number] [address]- 8531 Apr, [facility] [place] [facility] [address] [id number] [place] [address]- 4374 Apr, [facility] [place] [facility] [address] [id number] [place] [address]- 5178 Apr, [facility] [place] [facility] [address] [id number] [address]- 6093 Apr, [facility] [place] [facility] [address] [id number] [place] [address]- 2298 Apr, [facility] [place] [facility] [address] [id number] [place] [address]- 6267 Apr, [facility] [place] [facility] [address] [id number] [place] [address]- 8347 Mar, [facility] [place] [facility] [address] [id number] [place] [address]- 7648 Mar, [facility] [place] [facility] [address] [id number] [place] [address]- 7540 Mar, [facility] [place] [facility] [address] [id number] [place] [address]- 3649 Mar, [facility] [place] [facility] [address] [id number] [place] [address]- 5339 Feb, [facility] [place] [facility] [address] [id number] [place] [address]- 5181 Feb, [facility] [place] [facility] [address] [id number] [place] [address]- 3088 Feb, [facility] [place] [facility] [address] [id number] [place] [address]- 5138 Feb, [facility] [place] [facility] [address] [id number] [place] [address]- 7824 Feb, [facility] [place] [facility] [address] [id number] [place] [address]- 3939 Feb, [facility] [place] [facility] [address] [id number] [place] [address]- 3427 Jan, [facility] [place] [facility] [address] [id number] [place] [address]- 8604 Jan, [facility] [place] [facility] [address] [id number] [place] [address]- 1074 Jan, [facility] [place] [facility] [address] [id number] [place] [address]- 2961 Jan, [facility] [place] [facility] [address] [id number] [place] [address]- 0285 Jan, [facility] [place] [facility] [address] [id number] [place] [address]- 5310 Jan, [facility] [place] [facility] [address] [id number] [place] [address]- 2950 Jan, [facility] [place] [facility] [address] [id number] [place] [address]- 9242 Jan, [facility] [place] [facility] [address] [id number] [place] [address]- 7056 Jan, [facility] [place] [facility] [address] [id number] [place] [address]- 3500 Jan, [facility] [place] [facility] [address] [id number] [place] [address]- 2277 Dec, [facility] [place] [facility] [address] [id number] [place] [address]- 7989 Dec, [facility] [place] [facility] [address] [id number] [place] [address]- 5915 Dec, [facility] [place] [facility] [address] [id number] [place] [address]- 9208 Dec, [facility] [place] [facility] [address] [id number] [place] [address]- 6203 November, [facility] [place] [facility] [address] [id number] [place] [address] November, [facility] [place] [facility] [address] [id number] [place] [address] November, [facility] [place] [facility] [address] [id number] [place] [address] November, [facility] [place] [facility] [address] [id number] [place] [address] Oct, [facility] [place] [facility] [address] [id number] [place] [address] 30 Oct, 2013 [facility] [place] [facility] [address] [id number] [place] [address] Oct, [facility] [place] [facility] [address] [id number] [place] [address] Oct, [facility] [place] [facility] [address] [id number] [place] [address] Oct, [facility] [place] [facility] [address] [id number] [place] [address] Oct, [facility] [place] [facility] [address] [id number] [place] [address] Oct, [facility] [place] [facility] [address] [id number] [place] [address] Oct, [facility] [place] [facility] [address] [id number] [place] [address] Sep, [facility] [place] [facility] [address] [id number] [place] [address] Sep, [facility] [place] [facility] [address] [id number] [place] [address] Sep, [facility] [place] [facility] [address] [id number] [place] [address] Sep, [facility] [place] [facility] [address] [id number] [place] [address] Sep, [facility] [place] [facility] [address] [id number] [place] [address] Sep, [facility] [place] [facility] [address] [id number] [place] [address] Aug, [facility] [place] [facility] [address] [id number] [place] [address] Aug, [facility] [place] [facility] [address] [id number] [place] [address] Jul, [facility] [place] [facility] [address] [id number] [place] [address] Jul, [facility] [address] [id number] [place] [address] Jul, [facility] [place] [facility] [address] [id number] [place] [address] Jul, [facility] [place] [facility] [address] [id number] [place] [address] Jul, [facility] [place] [facility] [address] [id number] [place] [address] Jul, [facility] [place] [facility] [address] [id number] [place] [address] Jul, [facility] [place] [facility] [address] [id number] [place] [address] Jul, [facility] [place] [facility] [address] [id number] [place] [address] Jun, [facility] [place] [facility] [address] [id number] [place] [address] Jun, [facility] [place] [facility] [address] [id number] [place] [address] May, [facility] [place] [facility] [address] [id number] [place] [address] May, [facility] [place] [facility] [address] [id number] [place] [address] Apr, [facility] [place] [facility] [address] [id number] [place] [address] Apr, [facility] [place] [facility] [address] [id number] [place] [address] Apr, [facility] [place] [facility] [address] [address] [id number] [place] [address] Apr, [facility] [place] [facility] [address] [id number] [place] [address] Apr, [facility] [place] [facility] [address] [id number] [place] [address] Apr, [facility] [place] [facility] [address] [id number] [place] [address] Apr, [facility] [place] [facility] [address] [id number] [place] [address] Apr, [facility] [place] [facility] [address] [id number] [place] [address] Apr, [facility] [place] [facility] [address] [id number] [place] [address] Apr, [facility] [place] [facility] [address] [id number] [place] [address] Apr, [facility] [place] [facility] [address] [id number] [place] [address] Apr, [facility] [place] [facility] [address] [id number] [place] [address] Apr, [facility] [place] [facility] [address] [id number] [place] [address] Apr, [facility] [place] [facility] [address] [id number] [place] [address] Apr, [facility] [place] [facility] [address] [id number] [place] [address] 27 Mar, 2012 [facility] [place] [facility] [address] [id number] [place] [address] 27 Sep, 2012 [facility] [place] [facility] [address] [id number] [place] [address] 26 Sep, 2012 [facility] [place] [facility] [address] [id number] [place] [address] 25 Sep, 2012 [facility] [place] [facility] [address] [id number] [place] [address] 16 Sep, 2012 [facility] [place] [facility] [address] [id number] [place] [address] 03 Mar, 2013 [facility] [place] [facility] [address] [id number] [place] [address] Jan, [facility] [place] [facility] [address] [id number] [place] [address] Jan, [facility] [place] [facility] [address] [id number] [place] [address] 140[address] Jan, [facility] [place] [facility] [address] [id number] [place] [address] Dec, [facility] [place] [facility] [address] [id number] [place] [address] Oct, [facility] [place] [facility] [address] [id number] [place] [address] May, [facility] [place] [facility] [address] [id number] [place] [address] May, [facility] [place] [facility] [address] [id number] [place] [address] Jun, [facility] [place] [facility] [address] [id number] [place] [address] May, [facility] [place] [facility] [address] [facility] [id number] [place] [address] May, [facility] [place] [facility] [address] [id number] [place] [address] May, [facility] [place] [facility] [address] [id number] [place] [address] 14 Apr, 2011 [facility] [place] [facility] [address] [id number] [place] [address]267 Apr, [facility] [place] [facility] [address] [id number] [place] [address] Feb, [facility] [place] [facility] [address] [id number] [place] [address] Feb, [facility] [place] [facility] [address] [id number] [place] [address] 10 Dec, 2010 [facility] [place] [facility] [address] [id number] [place] [address] 12 Oct, 2010 [facility] [place] [facility] [address] [id number] [place] [address] 2546 19 Sep, 2010 [facility] [place] [facility] [address] [id number] [place] [address]266 10 Sep, 2010 [facility] [place] [facility] [address] [id number] [place] [address] 20 Jul, 2010 [facility] [place] [facility] [address] [id number] [place] [address] Jul, [facility] [place] [facility] [address] [id number] [place] [address] 28 Jun, 2010 [facility] [place] [facility] [address] [id number] [place] [address] 23 Jun, 2010 [facility] [place] [facility] [address] [id number] [place] [address] 270[address] 14 Jun, 2010 [facility] [place] [facility] [address] [id number] [place] [address] 14 Jun, 2010 [facility] [place] [facility] [address] [id number] [place] [address] 2545 08 Jun, 2010 [facility] [place] [facility] [address] [id number] [place] [address]- [address] 30 May, 2010 [facility] [place] [facility] [address] [id number] [place] [address]13 23 May, 2010 [facility] [place] [facility] [address] [id number] [place] [address] 2546 17 May, 2010 [facility] [place] [facility] [address] [id number] [place] [address] 2542 17 May, 2010 [facility] [place] [facility] [address] [id number] [place] [address] May, [facility] [address] [id number] [place] [address] May, [facility] [id number] [address] Apr, [facility] [id number] [address] 25[address] Apr, [facility] [id number] [address] Mar, [facility] [id number] [place] [address] Feb, [facility] [id number] [place] [address] Sep, [facility] [id number] [place] [address] Sep, [facility] [id number] [address] Aug, [facility] [id number] [place] [address] Jun, [facility] [id number] [address] 2546 Jun, [facility] [address] [id number] [address] May, [facility] [id number] [place] [address] Dec, [facility] [address] [id number] [address] 2546 Sep, IMMUNIZATIONS No Known Immunizations SOCIAL HISTORY Never Assessed REASON FOR VISIT Controlled Med Refill 10/29/17 PLAN OF CARE VITAL SIGNS MEDICATIONS Medication Instructions Dosage Frequency Start Date End Date Duration Status Dextroamphetamine Sulfate 10 MG Orally Three times a day 2 tablets 8h Oct, 28 days Active Xanax 1 MG Orally Twice a day 1 tablet 12h Jun, 28 days Active [place] 5-325 MG Orally 3 times a day 1 tablet as needed 8h 18 Oct, 2017 28 days Active RESULTS No Results [...]
--- OUTSIDE RECORDS SUMMARY | 2018-06-27 07:29 | XMS REPORT ---
Author Author ARABELLA DIXON Organization [facility] Address [address] [place] [address] Care Team Providers Care Cooperative Education Coordinator Name Role Phone ARABELLA DIXON Unavailable PROBLEMS Type Condition ICD9-CM Code QSD87-BM Code Onset Dates Condition Status SNOMED Code Problem Lumbago with sciatica, right side M54.41 Active [id number] Problem Diabetes type 2, controlled E11.9 Active 47100630 Problem Other chronic pain G89.29 Active 06411031 Problem High risk medications (not anticoagulants) long-term use Z79.899 Active 866082634 Problem Obstructive sleep apnea syndrome G47.33 Active 08531050 Problem Lumbago with sciatica, left side M54.42 Active 793815203 Problem Bilateral low back pain with sciatica, sciatica laterality unspecified M54.40 Active 20427592 Problem Essential hypertension I10 Active 08731532 Problem Migraine without aura and without status migrainosus, not intractable G43.009 Active 123286136 Problem Morbid obesity due to excess calories E66.01 Active 761934592 Problem Mood disorder F39 Active 87965133 Problem Anxiety F41.9 Active 19547770 ALLERGIES Substance Reaction Event Type Date Status Wellbutrin Unknown Drug Allergy Sep, Active Effexor increases depression -JCriserRN Drug Allergy Sep, Active ENCOUNTERS Encounter Location Date Diagnosis [facility] [address] [facility] [id number], [place] [address] Feb, [facility] [address] [facility] [id number], [place] [address] Jan, [facility] [address] [id number] [address] Jan, [facility] [address] [id number], [place] [address] 59[address] Jan, Diabetes type 2, controlled E11.9 [facility] [address], [place] [address] Jan, Diabetes type 2, controlled E11.9 [facility] [id number] [place] [address] 07966- 9312 Jan, Bilateral low back pain with sciatica, sciatica laterality unspecified M54.40 and Dysfunction of both eustachian tubes H69.83 [place] [id number] [place] [address] 51272- 8760 Jan, Morbid obesity due to excess calories E66.01 [place] [place] [id number] [place] [address] 40481- 5106 Dec, Diabetes type 2, controlled E11.9 [place] [id number] [place] [address] 68433- 0608 Dec, Morbid obesity due to excess calories E66.01 ; Essential hypertension I10 ; Tobacco abuse Z72.0 and Tobacco abuse counseling Z71.6 [place] [address], [place] [address] November, Diabetes type 2, controlled E11.9 [place] [id number] [place] [address] 40277- 3965 Oct, Diabetes type 2, controlled E11.9 [place] [place] [address], [place] [address] 9622 Sep, Diabetes type 2, controlled E11.9 [facility] [address]65[address], [place] [address] 30[address] Sep, [facility] [id number] [place] [address] 66569- 6047 Aug, Diabetes type 2, controlled E11.9 and Morbid obesity due to excess calories E66.01 [place] [address], [place] [address] 1068 Jul, Anxiety F41.9 [facility] [address] [id number], [place] [address] Jul, [facility] [address], [place] [address] 3318 Jul, Anxiety F41.9 ; Mood disorder F39 ; Morbid obesity due to excess calories E66.01 and Diabetes type 2, controlled E11.9 [place] [address], [place] [address] 6707 Jun, Anxiety F41.9 [place] [address] [id number] [address] 5386 Jun, Anxiety F41.9 ; Morbid obesity due to excess calories E66.01 and Diabetes type 2, controlled E11.9 [place] [address], [place] [address] 3265 May, Migraine without aura and without status migrainosus, not intractable G43.009 ; Diabetes type 2, controlled E11.9 and Morbid obesity due to excess calories E66.01 [place] [address], [place] [address] 0173 Apr, Migraine without aura and without status migrainosus, not intractable G43.009 ; Diabetes type 2, controlled E11.9 and Morbid obesity due to excess calories E66.01 [place] [address], [place] [address]- 1593 Apr, Diabetes type 2, controlled E11.9 and Morbid obesity due to excess calories E66.01 [place] [address], [place] [address]- 3203 Mar, Diabetes type 2, controlled E11.9 and Morbid obesity due to excess calories E66.01 [place] [address], [place] [address]- 5822 Mar, Diabetes type 2, controlled E11.9 and Mood disorder F39 [place] [address], [place] [address]- 6392 Feb, Morbid obesity due to excess calories E66.01 and Diabetes type 2, controlled E11.9 [facility] [address], [place] [address]- 8813 Jan, Diabetes type 2, controlled E11.9 and Morbid obesity due to excess calories E66.01 [place] [id number] [place] [address] 63578- 7466 Dec, Diabetes type 2, controlled E11.9 and Morbid obesity due to excess calories E66.01 [place] [id number] [place] [address] 67604- 2294 Dec, Morbid obesity due to excess calories E66.01 [place] [id number] [place] [address] 13059- 3668 November, Diabetes type 2, controlled E11.9 and Morbid obesity due to excess calories E66.01 [place] [id number] [place] [address] 00538- 1147 November, Anxiety F41.9 and Injury of right foot, initial encounter S99.921A [place] [address] [place] [address] 04448- 5943 November, Diabetes type 2, controlled E11.9 and Morbid obesity due to excess calories E66.01 [place] [address], [place] [address]- 3229 November, [place] [id number] [place] [address] 57558- 6103 Oct, Family history of brain aneurysm Z82.49 and Migraine without aura and without status migrainosus, not intractable G43.009 [place] [id number] [place] [address] 59774- 2242 Oct, Diabetes type 2, controlled E11.9 [facility] [address] [place] [address] 18055- 0923 Oct, Morbid obesity due to excess calories E66.01 ; Family history of brain aneurysm Z82.49 and Migraine without aura and without status migrainosus, not intractable G43.009 [facility] [address], [place] [address]- 9258 Oct, Diabetes type 2, controlled E11.9 and Morbid obesity due to excess calories E66.01 [facility] [address], [place] [address]- 9987 Sep, [facility] [id number] [place] [address] 87169- 2396 Sep, Diabetes type 2, controlled E11.9 [facility] [id number] [place] [address] 13460- 4213 Sep, Morbid obesity due to excess calories E66.01 [facility] [id number] [place] [address] 44916- 9730 Aug, Exposure to hepatitis C Z20.5 [facility] [id number] [place] [address] 19208- 1095 Aug, Diabetes type 2, controlled E11.9 [facility] [address], [place] [address]- 9707 Jul, Exposure to hepatitis C Z20.5 [facility] [id number] [address]- 4626 Jul, Exposure to hepatitis C Z20.5 [facility] [address], [place] [address]- 2022 Jul, [facility] [address], [place] [address]- 2722 Jul, Diabetes type 2, controlled E11.9 [facility] [address], [place] [address]- 1496 Jun, [facility] [address], [place] [address]- 2431 Jun, Diabetes type 2, controlled E11.9 ; Pain of left foot M79.672 and Pain in right foot M79.671 [facility] [address], [place] [address]- 2942 16 May, 2016 [facility] [id number] [place] [address] 05110- 4786 Apr, [facility] [id number], [place] [address]- 8388 Apr, [facility] [id number] [place] [address] 07273- 6359 Mar, [facility] [id number] [place] [address] 63901- 1694 Feb, [facility] [id number] [place] [address] 24867- 0380 Feb, [facility] [id number] [place] [address] 99811- 3690 Jan, [facility] [id number] [place] [address] 78503- 8826 Dec, Diabetes type 2, controlled E11.9 ; 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 and Abscess, abdomen K65.1 [facility] [id number], [place] [address]- 0982 Dec, Shoulder pain, right 719.41 [facility] [address], [place] [address]- 7377 November, [facility] [address], [place] [address]- 3861 November, [facility] [address], [place] [address]- 4533 Oct, [facility] [id number] 7371 Sep, [facility] [address], [place] [address]- 6490 Sep, [facility] [id number], [place] [address]12 29 Aug, 2015 [facility] [id number] [place] [address] 58132- 5187 Aug, [facility] [id number] [place] [address] 01811- 6619 17 Aug, 2015 Cellulitis, unspecified L03.90 ; Cutaneous abscess, unspecified L02.91 ; Diabetes type 2, controlled E11.9 ; Migraine G43.909 and Bilateral low back pain with sciatica, sciatica laterality unspecified M54.40 [facility] [address] [place] [address] 95982 -7054 13 Aug, 2015 Abscess and cellulitis L03.90 [facility] [id number] [place] [address] 76361- 7926 11 Aug, 2015 [facility] [id number] [place] [address] 81878- 4723 Aug, [facility] [id number] [place] [address] 58581- 0944 Jul, [facility] [id number] [place] [address] 28262- 1418 Jul, Diabetes type 2, controlled E11.9 [facility] [id number] [place] [address] 97869- 0993 Jul, Diabetes type 2, controlled E11.9 [facility] [id number] [place] [address] 06359- 6743 Jun, Diabetes type 2, controlled E11.9 ; Bilateral low back pain with sciatica, sciatica laterality unspecified M54.40 and Morbid obesity, unspecified obesity type E66.01 [facility] [id number] [place] [address] 38999- 2685 Jun, [facility] [id number] [place] [address] 60646- 9138 May, [facility] [address] [facility] [id number] [place] [address]- 2447 Apr, [facility] [id number] 4839 Apr, [facility] [address] [facility] [id number] [place] [address]- 6261 Apr, [facility] [id number], [place] [address]- 2929 Mar, [facility] [address] [facility] [id number] [place] 4379 Mar, [facility] [id number] 6953 Mar, [facility] [id number], [place] [address]- 5565 Feb, [facility] [address], [place] [address]- 0879 Feb, [facility] [id number], [place] [address]- 1601 Feb, [facility] [address], [place] [address]- 1013 Feb, [facility] [id number], [place] [address]- 2611 Feb, Diabetes mellitus without mention of complication, type II or unspecified type, not stated as uncontrolled 250.00 [facility] [id number], [place] [address]- 5441 Feb, [facility] [id number], [place] [address]- 1918 Feb, [facility] [id number], [place] [address]- 7156 Jan, Diabetes mellitus without mention of complication, type II or unspecified type, not stated as uncontrolled 250.00 and Cellulitis and abscess 682.9 [facility] [address] [id number] [place] [address]- 6795 Jan, [facility] [address] [id number] [place] [address]- 5603 Jan, [facility] [place] [facility] [address] [id number] [place] [address]- 7966 Jan, [facility] [address] [id number] [place] [address]- 8399 Dec, [facility] [place] [facility] [address] [id number] [place] [address]- 1844 Dec, [facility] [address] [id number] [place] [address]- 1513 Dec, [facility] [address] [facility] [id number] [place] [address]- 3311 November, [facility] [address] [facility] [id number] [place] [address]- 1215 Oct, Shoulder pain, right 719.41 [facility] [address] [id number] [place] [address]- 3848 Oct, [facility] [address] [facility] [id number] [place] [address]- 9334 Oct, [facility] [address] [facility] [id number] [place] [address]- 0589 Sep, [facility] [place] [facility] [address] [id number], [place] [address]- 0173 Sep, [facility] [place] [facility] [address] [id number] [place] [address]- 7586 Sep, [facility] [place] [facility] [address] [id number] [place] [address]- 0671 Sep, [facility] [place] [facility] [address] [id number] 9182 Sep, [facility] [place] [facility] [address] [id number], [place] [address]- 2664 24 Sep, 2014 [facility] [place] [facility] [address] [id number] [place] [address]- 5247 14 Sep, 2014 [facility] [place] [facility] [address] [id number] [place] [address]- 1316 14 Sep, 2014 [facility] [place] [facility] [address] [id number] [place] [address]- 5200 24 Aug, 2014 [facility] [place] [facility] [address] [id number] [place] [address]- 0721 24 Aug, 2014 [facility] [place] [facility] [address] [id number] [place] [address]- 1610 Aug, [facility] [place] [facility] [address] [id number] [place] [address]- 7402 Aug, [facility] [place] [facility] [address] [id number] [place] [address]- 9153 Jul, [facility] [place] [facility] [address] [id number] [place] [address]- 4610 Jul, [facility] [place] [facility] [address] [id number] [place] [address]- 7959 Jul, [facility] [place] [facility] [address] [id number] [place] [address]- 6235 Jul, [facility] [place] [facility] [address] [id number] [place] [address]- 0736 Jul, [facility] [place] [facility] [address] [id number] [place] [address]- 9685 Jul, [facility] [place] [facility] [address] [id number] [place] [address]- 7053 Jun, [facility] [place] [facility] [address] [id number] [place] 3843 Jun, [facility] [place] [facility] [address] [id number] [place] [address]- 0689 Jun, [facility] [place] [facility] [address] [id number] [place] [address]- 1466 Jun, [facility] [place] [facility] [address] [id number] [place] [address]- 1905 Jun, [facility] [place] [facility] [address] [id number] [place] [address]- 2252 Jun, [facility] [place] [facility] [address] [id number] [place] [address]- 1131 Jun, [facility] [place] [facility] [address] [id number] [place] [address]- 9259 Jun, [facility] [place] [facility] [address] [id number] [place] [address]- 9294 May, [facility] [place] [facility] [address] [id number] [place] [address]- 6531 May, [facility] [place] [facility] [address] [id number] [place] [address]- 2819 May, [facility] [place] [facility] [address] [id number] [place] [address]- 2202 May, [facility] [place] [facility] [address] [id number] [place] [address]- 5847 May, [facility] [place] [facility] [address] [id number] [place] [address]- 3359 May, [facility] [place] [facility] [address] [id number] [place] [address]- 6954 Apr, [facility] [place] [facility] [address] [id number] [place] [address]- 9080 Apr, [facility] [place] [facility] [address] [id number] [place] [address]- 6317 Apr, [facility] [place] [facility] [address] [id number] [place] [address]- 8333 Apr, [facility] [place] [facility] [address] [id number] [place] [address]- 0472 Apr, [facility] [place] [facility] [address] [id number] [place] [address]- 5990 Apr, [facility] [place] [facility] [address] [id number] [place] [address]- 2349 Apr, [facility] [place] [facility] [address] [id number] [place] [address]- 3332 Mar, [facility] [place] [facility] [address] [id number] [place] [address]- 9658 Mar, [facility] [place] [facility] [address] [id number] [place] [address]- 3618 Mar, [facility] [place] [facility] [address] [id number] [place] [address]- 0567 Mar, [facility] [place] [facility] [address] [id number] [place] [address]- 7692 Feb, [facility] [place] [facility] [address] [id number] [place] [address]- 2781 Feb, [facility] [place] [facility] [address] [id number] [place] [address]- 4060 Feb, [facility] [place] [facility] [address] [id number] [place] [address]- 6369 Feb, [facility] [place] [facility] [address] [id number] [place] [address]- 8975 Feb, [facility] [place] [facility] [address] [id number] [place] [address]- 4648 Feb, [facility] [place] [facility] [address] [id number] [place] [address]- 6447 Jan, [facility] [place] [facility] [address] [id number] [place] [address]- 4101 Jan, [facility] [place] [facility] [address] [id number] [place] [address]- 5488 Jan, [facility] [place] [facility] [address] [id number] [place] [address]- 5105 Jan, [facility] [address] [id number] [place] [address]- 3313 Jan, [facility] [place] [facility] [address] [id number] [place] [address]- 1021 Jan, [facility] [place] [facility] [address] [id number] [place] [address]- 9100 Jan, [facility] [place] [facility] [address] [id number] [place] [address]- 8558 Jan, [facility] [place] [facility] [address] [id number] [place] [address]- 5270 Jan, [facility] [place] [facility] [address] [id number] [place] [address]- 0485 Jan, [facility] [place] [facility] [address] [id number] [place] [address]- 7337 Dec, [facility] [place] [facility] [address] [id number] [place] [address]- 4197 Dec, [facility] [place] [facility] [address] [id number] [place] [address]- 0664 Dec, [facility] [place] [facility] [address] [id number] [place] [address]- 7993 Dec, [facility] [place] [facility] [address] [id number] [place] [address]- 6347 November, [facility] [place] [facility] [address] [id number] [place] [address]- 4322 November, [facility] [place] [facility] [address] [id number] [place] [address]- 9508 November, [facility] [place] [facility] [address] [id number] [place] [address]- 9528 November, [facility] [place] [facility] [address] [id number] [place] [address]- 8438 Oct, [facility] [place] [facility] [address] [id number] [place] [address]- 2090 Oct, [facility] [place] [facility] [address] [id number] [place] [address]- 8818 Oct, [facility] [place] [facility] [address] [id number] [place] [address]- 6131 Oct, [facility] [place] [facility] [address] [id number] [place] [address]- 1950 Oct, [facility] [place] [facility] [address] [id number] [place] [address]- 2032 Oct, [facility] [place] [facility] [address] [id number] [place] [address]- 5189 Oct, [facility] [place] [facility] [address] [id number] [place] [address] Oct, [facility] [place] [facility] [address] [id number] [place] [address] Sep, [facility] [place] [facility] [address] [id number] [place] [address] Sep, [facility] [place] [facility] [address] [id number] [place] [address] Sep, [facility] [place] [facility] [address] [id number] [place] [address] Sep, [facility] [place] [facility] [address] [id number], [place] [address] Sep, [facility] [place] [facility] [address] [id number] [place] [address] Sep, [facility] [place] [facility] [address] [id number] [place] [address] Aug, [facility] [place] [facility] [address] [id number] [place] [address] Aug, [facility] [place] [facility] [address] [id number], [place] [address] Jul, [facility] [place] [facility] [address] [id number] [place] [address] Jul, [facility] [place] [facility] [address] [id number], [place] [address] Jul, [facility] [place] [facility] [address] [facility] [id number] [place] [address] Jul, [facility] [place] [facility] [address] [id number] [place] [address] Jul, [facility] [place] [facility] [address] [id number] [place] [address] Jul, [facility] [place] [facility] [address] [facility] [id number] [place] [address] Jul, [facility] [place] [facility] [address] [facility] [id number], [place] [address] Jul, [facility] [place] [facility] [address] [id number], [place] [address] Jun, [facility] [place] [facility] [address] [facility] [id number] [place] [address] Jun, [facility] [place] [facility] [address] [facility] [id number], [place] [address] May, [facility] [place] [facility] [address] [id number], [place] [address] May, [facility] [place] [facility] [address] [id number], [place] [address] Apr, [facility] [place] [facility] [address] [id number], [place] [address] Apr, [facility] [place] [facility] [address] [facility] [id number], [place] [address] Apr, [facility] [place] [facility] [address] [facility] [id number], [place] [address] Apr, [facility] [place] [facility] [address] [id number] [place] [address] Apr, [facility] [place] [facility] [address] [id number] [place] [address] Apr, [facility] [place] [facility] [address] [id number] [place] [address] Apr, [facility] [place] [facility] [address] [id number] [place] [address] Apr, [facility] [place] [facility] [address] [id number] [place] [address] Apr, [facility] [place] [facility] [address] [id number] [place] [address] Apr, [facility] [place] [facility] [address] [id number] [place] [address] Apr, [facility] [place] [facility] [address] [id number] [place] [address] Apr, [facility] [place] [facility] [address] [id number] [place] [address] Apr, [facility] [place] [facility] [address] [id number] [place] [address] Apr, [facility] [facility] [address] [id number] [place] [address] Apr, [facility] [place] [facility] [address] [id number] [place] [address] 27 Mar, 2012 [facility] [place] [facility] [address] [id number] [place] [address] 27 Sep, 2012 [facility] [place] [facility] [address] [id number] [place] [address] 2542 26 Sep, 2012 [facility] [place] [facility] [address] [id number] [place] [address] 25 Sep, 2012 [facility] [place] [facility] [address] [id number] [place] [address] 16 Mar, 2013 [facility] [place] [facility] [address] [id number] [place] [address] Mar, [facility] [place] [facility] [address] [id number] [place] [address] Jan, [facility] [place] [facility] [address] [id number] [place] [address] Jan, [facility] [place] [facility] [address] [id number] [place] [address] Jan, [facility] [place] [facility] [address] [id number] [place] [address] Dec, [facility] [place] [facility] [address] [id number] [place] [address] Oct, [facility] [place] [facility] [address] [id number] [place] [address] May, [facility] [place] [facility] [address] [id number], [place] [address] May, [facility] [place] [facility] [address] [id number], [place] [address] Jun, [facility] [place] [facility] [address] [id number], [place] [address] May, [facility] [place] [facility] [address] [id number], [place] [address] May, [facility] [facility] [address] [id number], [place] [address] May, [facility] [facility] [address] [id number], [place] [address] 14 Apr, 2011 [facility] [place] [facility] [address] [id number], [place] [address] 13 Apr, 2011 [facility] [address] [id number], [place] [address] 17 Feb, 2011 [facility] [facility] [address] [id number] [place] [address] 16 Feb, 2011 [facility] [address] [id number] [place] [address] 10 Dec, 2010 [facility] [place] [facility] [address] [id number] [place] [address] 12 Oct, 2010 [facility] [address] [id number] [place] [address] 2546 19 Sep, 2010 [facility] [place] [facility] [address] [id number] [place] [address] 2545 10 Sep, 2010 [facility] [place] [facility] [address] [id number] [place] [address] 20 Jul, 2010 [facility] [place] [facility] [address] [id number] [place] [address] 11 Jul, 2010 [facility] [address] [id number] [place] [address] 28 Jun, 2010 [facility] [place] [facility] [address] [id number] [place] [address] 23 Jun, 2010 [facility] [place] [facility] [address] [id number] [place] [address] 2546 14 Jun, 2010 [facility] [address] [facility] [id number] [place] [address] 2543 14 Jun, 2010 [facility] [address] [id number] [place] [address] 2546 08 Jun, 2010 [facility] [address] [id number] [place] [address] 2547 30 May, 2010 [facility] [address] [id number] [place] [address] 2549 23 May, 2010 [facility] [address] [id number] [place] [address] 2546 17 May, 2010 [facility] [address] [id number] [place] [address] 2544 17 May, 2010 [facility] [address] [facility] [id number], [place] [address] May, [facility] [address] [facility] [id number], [place] [address] May, [facility] [address] [facility] [id number], [place] [address] Apr, [facility] [id number], [place] [address] Apr, [facility] [address] [facility] [id number], [place] [address] Mar, [facility] [id number], [place] [address] Feb, [facility] [id number], [place] [address] Sep, [facility] [id number], [place] [address] Sep, [facility] [id number], [place] [address] Aug, [facility] [id number], [place] [address] Jun, [facility] [id number], [place] [address] Jun, [facility] [id number], [place] [address] May, [facility] [address] [id number], [place] [address] Dec, [facility] [id number], [place] [address] Sep, IMMUNIZATIONS No Known Immunizations SOCIAL HISTORY Never Assessed REASON FOR VISIT PA for dextroamphetamine PLAN OF CARE VITAL SIGNS MEDICATIONS Unknown [...]
--- OUTSIDE RECORDS SUMMARY | 2018-06-27 07:30 | XMS REPORT ---
Author Author ALEXIS JACKSON [facility] Address [address] [place] [address] Care Team Providers Care Dolly Operator Name Role Phone ALEXIS JACKSON Unavailable PROBLEMS Type Condition ICD9-CM Code VKU92-ER Code Onset Dates Condition Status SNOMED Code Problem Lumbago with sciatica, right side M54.41 Active [id number] Problem Diabetes type 2, controlled E11.9 Active 17504291 Problem Other chronic pain G89.29 Active 42087484 Problem High risk medications (not anticoagulants) long-term use Z79.899 Active 080950440 Problem Obstructive sleep apnea syndrome G47.33 Active 84185246 Problem Lumbago with sciatica, left side M54.42 Active 887141050 Problem Bilateral low back pain with sciatica, sciatica laterality unspecified M54.40 Active 99264829 Problem Essential hypertension I10 Active 28438952 Problem Migraine without aura and without status migrainosus, not intractable G43.009 Active 499309715 Problem Morbid obesity due to excess calories E66.01 Active 915227773 Problem Mood disorder F39 Active 51673847 Problem Anxiety F41.9 Active 19251986 ALLERGIES No Information ENCOUNTERS Encounter Location Date Diagnosis [facility] [id number], [place] [address] Feb, [facility] [address], [place] [address] Jan, [facility] [id number] [place] [address] 93224- 3872 Jan, Diabetes type 2, controlled E11.9 [facility] [id number], [place] [address] 0622 Jan, Diabetes type 2, controlled E11.9 [facility] [id number] [place] [address] 66027- 4621 Jan, Bilateral low back pain with sciatica, sciatica laterality unspecified M54.40 and Dysfunction of both eustachian tubes H69.83 [facility] [id number] [place] [address] 95747- 4481 Jan, Morbid obesity due to excess calories E66.01 [facility] [id number] [place] [address] 81497- 6739 Dec, Diabetes type 2, controlled E11.9 [facility] [id number] [place] [address] 38117- 8773 Dec, Morbid obesity due to excess calories E66.01 ; Essential hypertension I10 ; Tobacco abuse Z72.0 and Tobacco abuse counseling Z71.6 [facility] [id number] [place] [address] 50448- 0066 November, Diabetes type 2, controlled E11.9 [facility] [address] [address]- 3918 Oct, Diabetes type 2, controlled E11.9 [facility] [id number] [place] [address] 83166- 0833 Sep, Diabetes type 2, controlled E11.9 [facility] [id number] [place] [address] 19565- 0967 Sep, [facility] [id number] [place] [address] 43612- 0330 Aug, Diabetes type 2, controlled E11.9 and Morbid obesity due to excess calories E66.01 [facility] [id number] [place] [address] 74553- 1690 Jul, Anxiety F41.9 [facility] [id number] [place] [address] 00482- 3641 Jul, [facility] [id number] [place] [address] 07999- 5627 Jul, Anxiety F41.9 ; Mood disorder F39 ; Morbid obesity due to excess calories E66.01 and Diabetes type 2, controlled E11.9 [facility] [id number] [place] [address] 00171- 2344 Jun, Anxiety F41.9 [facility] [id number] [place] [address] 37762- 7944 Jun, Anxiety F41.9 ; Morbid obesity due to excess calories E66.01 and Diabetes type 2, controlled E11.9 [facility] [id number] [place] [address] 06033- 9577 May, Migraine without aura and without status migrainosus, not intractable G43.009 ; Diabetes type 2, controlled E11.9 and Morbid obesity due to excess calories E66.01 [facility] [id number] [place] [address] 27276- 2873 Apr, Migraine without aura and without status migrainosus, not intractable G43.009 ; Diabetes type 2, controlled E11.9 and Morbid obesity due to excess calories E66.01 [facility] [id number] [place] [address] 83607- 1572 Apr, Diabetes type 2, controlled E11.9 and Morbid obesity due to excess calories E66.01 [facility] [id number] [place] [address] 30867- 4745 Mar, Diabetes type 2, controlled E11.9 and Morbid obesity due to excess calories E66.01 [facility] [address], [place] [address]- 2805 Mar, Diabetes type 2, controlled E11.9 and Mood disorder F39 [facility] [id number] [place] [address] 07458- 5055 Feb, Morbid obesity due to excess calories E66.01 and Diabetes type 2, controlled E11.9 [facility] [address], [place] [address]- 6110 Jan, Diabetes type 2, controlled E11.9 and Morbid obesity due to excess calories E66.01 [facility] [address], [place] [address]- 0721 Dec, Diabetes type 2, controlled E11.9 and Morbid obesity due to excess calories E66.01 [facility] [address], [place] [address]- 2426 Dec, Morbid obesity due to excess calories E66.01 [facility] [id number] [place] [address] 23083- 3905 November, Diabetes type 2, controlled E11.9 and Morbid obesity due to excess calories E66.01 [facility] [id number] [place] [address] 18037- 9215 November, Anxiety F41.9 and Injury of right foot, initial encounter S99.921A [facility] [id number] [place] [address] 76709- 2679 November, Diabetes type 2, controlled E11.9 and Morbid obesity due to excess calories E66.01 [facility] [address], [place] [address]- 8584 November, [facility] [id number] [place] [address] 76716- 6619 Oct, [facility] [id number] [place] [address] 65569- 2311 Oct, Family history of brain aneurysm Z82.49 and Migraine without aura and without status migrainosus, not intractable G43.009 [facility] [id number], [place] [address]- 1218 Oct, Diabetes type 2, controlled E11.9 [facility] [address] [place] [address] 38987- 4270 Oct, Morbid obesity due to excess calories E66.01 ; Family history of brain aneurysm Z82.49 and Migraine without aura and without status migrainosus, not intractable G43.009 [facility] [address] [place] [address] 46808- 6362 Oct, Diabetes type 2, controlled E11.9 and Morbid obesity due to excess calories E66.01 [facility] [id number] [place] [address] 27118- 3704 Sep, [facility] [id number] [place] [address] 07795- 2323 Sep, Diabetes type 2, controlled E11.9 [facility] [id number] [place] [address] 53012- 7584 Sep, Morbid obesity due to excess calories E66.01 [facility] [id number] [place] [address] 15472- 5215 Aug, Exposure to hepatitis C Z20.5 [facility] [id number] [place] [address] 57803- 6795 Aug, Diabetes type 2, controlled E11.9 [facility] [id number] [place] [address] 99577- 1346 Jul, Exposure to hepatitis C Z20.5 [facility] [id number] [place] [address] 54129- 4080 Jul, Exposure to hepatitis C Z20.5 [facility] [id number] [place] [address] 58605- 5712 Jul, [facility] [id number] [place] [address] 18676- 3266 Jul, Diabetes type 2, controlled E11.9 [facility] [address], [place] [address]- 4369 Jun, [facility] [id number] [place] [address] 67618- 1876 Jun, Diabetes type 2, controlled E11.9 ; Pain of left foot M79.672 and Pain in right foot M79.671 [facility] [id number] [place] [address] 25605- 3555 May, [facility] [address] [place] [address]- 2867 Apr, [facility] [id number] [place] [address], [place] [address]- 4528 Apr, [facility] [address] [place] [address]- 3134 Mar, [facility] [id number] [place] [address], [place] [address]- 2328 Feb, [facility] [id number] [place] [address], [place] [address]- 6740 Feb, [facility] [id number] [place] [address] 41570- 5279 Jan, [facility] [id number] [place] [address], [place] [address]- 5265 Dec, Diabetes type 2, controlled E11.9 ; 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 and Abscess, abdomen K65.1 [facility] [address], [place] [address]- 0093 Dec, Shoulder pain, right 719.41 [facility] [id number], [place] [address]- 1263 November, [facility] [address], [place] [address]- 5002 November, [facility] [address], [place] [address]- 6857 Oct, [facility] [address], [place] [address]- 7110 Sep, [facility] [address], [place] [address]- 0294 Sep, [facility] [address] [place] [address] -0141 Aug, [facility] [address], [place] [address]- 5486 18 Aug, 2015 [facility] [id number] [place] [address] 99350- 3256 17 Aug, 2015 Cellulitis, unspecified L03.90 ; Cutaneous abscess, unspecified L02.91 ; Diabetes type 2, controlled E11.9 ; Migraine G43.909 and Bilateral low back pain with sciatica, sciatica laterality unspecified M54.40 [facility] [id number] [place] [address] 59913 -7492 13 Aug, 2015 Abscess and cellulitis L03.90 [facility] [id number] [place] [address] 54198- 1477 Aug, [facility] [id number] [place] [address] 77751- 5215 Aug, [facility] [id number] [place] [address] 76229- 1979 Jul, [facility] [id number] [place] [address] 70839- 4743 Jul, Diabetes type 2, controlled E11.9 [facility] [id number] [place] [address] 24640- 3559 Jul, Diabetes type 2, controlled E11.9 [facility] [id number] [place] [address] 66046- 9433 Jun, Diabetes type 2, controlled E11.9 ; Bilateral low back pain with sciatica, sciatica laterality unspecified M54.40 and Morbid obesity, unspecified obesity type E66.01 [facility] [id number] [place] [address] 09537- 4372 Jun, [facility] [id number] [place] [address] 23637- 6579 May, [facility] [id number] [place] [address] 29112- 2614 Apr, [facility] [address] [facility] [id number] [address]- 4097 Apr, [facility] [address] [place] [address]- 1299 Apr, [facility] [address] [place] [address]- 9959 Mar, [facility] [id number] [place] [address], [place] [address]- 4649 Mar, [facility] [address] [facility] [id number] [place] [address]- 2783 Mar, [facility] [address] 6975 Feb, [facility] [address] [place] [address]- 4412 Feb, [facility] [address], [place] [address]- 8296 Feb, [facility] [address], [place] [address]- 5101 Feb, [facility] [address], [place] [address]- 0327 Feb, Diabetes mellitus without mention of complication, type II or unspecified type, not stated as uncontrolled 250.00 [facility] [address], [place] [address]- 3789 Feb, [facility] [id number], [place] [address]- 1187 Feb, [facility] [id number] 4105 Jan, Diabetes mellitus without mention of complication, type II or unspecified type, not stated as uncontrolled 250.00 and Cellulitis and abscess 682.9 [facility] [id number], [place] [address]- 5968 Jan, [facility] [address] [id number] [place] [address]- 1906 Jan, [facility] [address] [id number] [place] [address]- 6419 Jan, [facility] [place] [facility] [address] [id number] [place] [address]- 6072 Dec, [facility] [place] [facility] [address] [id number] [place] [address]- 1706 Dec, [facility] [place] [facility] [address] [id number] [place] [address]- 2104 Dec, [facility] [place] [facility] [address] [id number] [place] [address]- 2491 November, [facility] [address] [facility] [id number] [place] [address]- 2357 Oct, Shoulder pain, right 719.41 [facility] [address] [id number] [place] [address]- 6178 Oct, [facility] [address] [id number] [place] [address]- 4570 Oct, [facility] [address] [facility] [id number] [place] [address]- 2989 Sep, [facility] [place] [facility] [address] [id number] [place] [address]- 3673 Sep, [facility] [place] [facility] [address] [id number] [place] [address]- 7627 Sep, [facility] [place] [facility] [address] [id number] [place] [address]- 3163 Sep, [facility] [place] [facility] [address] [id number] [place] [address]- 4344 Sep, [facility] [place] [facility] [address] [id number] [place] [address]- 6383 Sep, [facility] [place] [facility] [address] [id number] [place] [address]- 8591 14 Sep, 2014 [facility] [address] [id number] [place] [address]- 4847 14 Sep, 2014 [facility] [place] [facility] [address] [id number] [place] [address]- 5441 24 Aug, 2014 [facility] [place] [facility] [address] [id number] [place] [address]- 9303 24 Aug, 2014 [facility] [place] [facility] [address] [id number] [place] [address]- 8662 Aug, [facility] [place] [facility] [address] [id number] [place] [address]- 0728 Aug, [facility] [place] [facility] [address] [id number] [place] [address]- 5193 Jul, [facility] [place] [facility] [address] [id number] [place] [address]- 7658 Jul, [facility] [place] [facility] [address] [id number] [place] [address]- 4427 Jul, [facility] [place] [facility] [address] [id number] [place] [address]- 0822 Jul, [facility] [place] [facility] [address] [id number] [place] [address]- 1029 Jul, [facility] [place] [facility] [address] [id number] [place] [address]- 6540 Jul, [facility] [place] [facility] [address] [id number] [place] [address]- 3156 Jun, [facility] [place] [facility] [address] [id number] [place] [address]- 3793 Jun, [facility] [place] [facility] [address] [id number] [place] [address]- 3235 Jun, [facility] [place] [facility] [address] [id number] [place] [address]- 1503 Jun, [facility] [place] [facility] [address] [id number] [place] [address]- 1374 18 Jun, 2014 [facility] [place] [facility] [address] [id number] [place] [address]- 9239 18 Jun, 2014 [facility] [place] [facility] [address] [id number] [place] [address]- 7233 Jun, [facility] [place] [facility] [address] [id number] [place] [address]- 7133 Jun, [facility] [place] [facility] [address] [id number] [place] [address]- 5345 May, [facility] [place] [facility] [address] [id number] [place] [address]- 4346 May, [facility] [place] [facility] [address] [id number] [place] [address]- 3799 May, [facility] [place] [facility] [address] [id number] [place] [address]- 1442 May, [facility] [place] [facility] [address] [id number] [place] [address]- 1903 May, [facility] [place] [facility] [address] [id number] [place] [address]- 5723 May, [facility] [place] [facility] [address] [id number] [place] [address]- 9624 Apr, [facility] [place] [facility] [address] [id number], [place] [address]- 9524 Apr, [facility] [place] [facility] [address] [id number] [place] [address]- 0687 Apr, [facility] [place] [facility] [address] [id number] [place] [address]- 5112 Apr, [facility] [place] [facility] [address] [id number], [place] [address]- 9426 Apr, [facility] [place] [facility] [address] [id number], [place] [address]- 7714 Apr, [facility] [place] [facility] [address] [id number] [place] [address]- 3272 Apr, [facility] [place] [facility] [address] [id number] [place] [address]- 3227 Mar, [facility] [place] [facility] [address] [id number] [place] [address]- 4994 Mar, [facility] [place] [facility] [address] [id number] [place] [address]- 5327 Mar, [facility] [place] [facility] [address] [id number] [place] [address]- 6059 Mar, [facility] [place] [facility] [address] [id number] [place] [address]- 5272 Feb, [facility] [place] [facility] [address] [id number] [place] [address]- 9709 Feb, [facility] [place] [facility] [address] [id number] [place] [address]- 5792 Feb, [facility] [place] [facility] [address] [id number] [place] [address]- 9545 Feb, [facility] [place] [facility] [address] [id number] [place] [address]- 0494 Feb, [facility] [place] [facility] [address] [id number] [place] [address]- 9465 Feb, [facility] [place] [facility] [address] [id number] [place] [address]- 5204 Jan, [facility] [place] [facility] [address] [id number] [place] [address]- 1242 Jan, [facility] [place] [facility] [address] [id number] [place] [address]- 9212 Jan, [facility] [place] [facility] [address] [id number] [place] [address]- 7088 Jan, [facility] [place] [facility] [address] [id number] [place] [address]- 6637 Jan, [facility] [place] [facility] [address] [id number] [place] [address]- 3325 Jan, [facility] [place] [facility] [address] [id number] [place] [address]- 2456 Jan, [facility] [place] [facility] [address] [id number] [place] [address]- 8554 Jan, [facility] [place] [facility] [address] [id number] [place] [address]- 3873 Jan, [facility] [place] [facility] [address] [id number] [place] [address]- 4945 Jan, [facility] [place] [facility] [address] [id number] [place] [address]- 1210 Dec, [facility] [place] [facility] [address] [id number] [place] [address]- 1788 Dec, [facility] [place] [facility] [address] [id number] [place] [address]- 2689 Dec, [facility] [place] [facility] [address] [id number] [place] [address]- 9896 Dec, [facility] [place] [facility] [address] [id number] [place] [address]- 3573 November, [facility] [place] [facility] [address] [id number] [place] [address]- 9711 November, [facility] [place] [facility] [address] [id number] [place] [address]- 0594 November, [facility] [place] [facility] [address] [id number] [place] [address]- 1902 November, [facility] [place] [facility] [address] [id number] [place] [address]- 8054 Oct, [facility] [place] [facility] [address] [id number] [place] [address]- 7974 Oct, [facility] [place] [facility] [address] [id number] [place] [address]- 4331 Oct, [facility] [place] [facility] [address] [id number] [place] [address]- 6876 Oct, [facility] [place] [facility] [address] [id number] [place] [address]- 2107 Oct, [facility] [place] [facility] [address] [id number] [place] [address]- 3025 Oct, [facility] [place] [facility] [address] [id number] [place] [address]- 9300 Oct, [facility] [place] [facility] [address] [id number] [place] [address]- 9335 Oct, [facility] [place] [facility] [address] [id number] [place] [address]- 4882 Sep, [facility] [place] [facility] [address] [id number] [place] [address] Sep, [facility] [place] [facility] [address] [id number] [place] [address] Sep, [facility] [place] [facility] [address] [id number] [place] [address] Sep, [facility] [place] [facility] [address] [id number] [place] [address] Sep, [facility] [place] [facility] [address] [id number] [place] [address] Sep, [facility] [place] [facility] [address] [id number] [place] [address] Aug, [facility] [place] [facility] [address] [id number] [place] [address] Aug, [facility] [place] [facility] [address] [id number] [place] [address] Jul, [facility] [place] [facility] [address] [id number] [place] [address] Jul, [facility] [place] [facility] [address] [id number] [place] [address] Jul, [facility] [place] [facility] [address] [id number] [place] [address] Jul, [facility] [place] [facility] [address] [id number] [place] [address] Jul, [facility] [place] [facility] [address] [id number] [place] [address] Jul, [facility] [place] [facility] [address] [id number] [place] [address] Jul, [facility] [place] [facility] [address] [id number] [place] [address] Jul, [facility] [place] [facility] [address] [id number] [place] [address] Jun, [facility] [place] [facility] [address] [id number] [place] [address] Jun, [facility] [place] [facility] [address] [id number] [place] [address] May, [facility] [place] [facility] [address] [facility] [id number] [place] [address] May, [facility] [place] [facility] [address] [id number] [place] [address] Apr, [facility] [place] [facility] [address] [id number] [place] [address] Apr, [facility] [place] [facility] [address] [id number] [place] [address]- [address] Apr, [facility] [place] [facility] [address] [id number] [place] [address]- [address] Apr, [facility] [place] [facility] [address] [id number] [place] [address]- [address] Apr, [facility] [place] [facility] [address] [id number] [place] [address] Apr, [facility] [place] [facility] [address] [id number] [place] [address] Apr, [facility] [place] [facility] [address] [id number] [place] [address]- [address] Apr, [facility] [place] [facility] [address] [id number] [place] [address]- [address] Apr, [facility] [place] [facility] [address] [id number] [place] [address]- [address] Apr, [facility] [place] [facility] [address] [id number] [place] [address]- [address] Apr, [facility] [place] [facility] [address] [id number] [place] [address] Apr, [facility] [place] [facility] [address] [id number] [place] [address]- [address] Apr, [facility] [place] [facility] [address] [id number] [place] [address]- [address] Apr, [facility] [place] [facility] [address] [id number] [place] [address] Apr, [facility] [place] [facility] [address] [id number] [place] [address] 27 Mar, 2013 [facility] [place] [facility] [address] [id number], [place] [address] 27 Mar, 2012 [facility] [place] [facility] [address] [id number] [place] [address]- [address] 26 Mar, 2012 [facility] [place] [facility] [address] [id number] [place] [address]- [address] 25 Sep, 2012 [facility] [place] [facility] [address] [id number] [place] [address]- [address] 16 Sep, 2012 [facility] [place] [facility] [address] [id number] [place] [address] Mar, [facility] [place] [facility] [address] [id number] [place] [address] Jan, [facility] [place] [facility] [address] [id number] [place] [address] Jan, [facility] [place] [facility] [address] [id number] [place] [address] Jan, [facility] [place] [facility] [address] [id number] [place] [address]- [address] Dec, [facility] [facility] [address] [id number] [place] [address] Oct, [facility] [place] [facility] [address] [id number] [place] [address] May, [facility] [place] [facility] [address] [id number] [place] [address] May, [facility] [place] [facility] [address] [id number] [place] [address] Jun, [facility] [place] [facility] [address] [id number] [place] [address] May, [facility] [place] [facility] [address] [id number] [place] [address] May, [facility] [place] [facility] [address] [id number], [place] [address] May, [facility] [place] [facility] [address] [id number] [place] [address] 14 Apr, 2011 [facility] [place] [facility] [address] [id number] [place] [address] Apr, [facility] [place] [facility] [address] [id number] [place] [address] Feb, [facility] [place] [facility] [address] [id number] [place] [address] Feb, [facility] [place] [facility] [address] [id number] [place] [address] 10 Dec, 2010 [facility] [address] [id number] [place] [address] 12 Oct, 2010 [facility] [address] [id number] [place] [address] 19 Sep, 2010 [facility] [address] [id number] [place] [address] 10 Sep, 2010 [facility] [address] [id number] [place] [address] 20 Jul, 2010 [facility] [address] [id number] [place] [address] 11 Jul, 2010 [facility] [address] [id number] [place] [address] 28 Jun, 2010 [facility] [address] [id number] [place] [address] 23 Jun, 2010 [facility] [address] [id number] [place] [address] 14 Jun, 2010 [facility] [address] [id number] [place] [address] 14 Jun, 2010 [facility] [address] [id number] [place] [address] 08 Jun, 2010 [facility] [address] [id number] [place] [address] 30 May, 2010 [facility] [address] [id number] [place] [address] 2547 23 May, 2010 [facility] [address] [id number] [place] [address] 17 May, 2010 [facility] [address] [id number] [place] [address] 17 May, 2010 [facility] [address] [id number] [place] [address] May, [facility] [address] [id number], [place] [address] May, [facility] [address] [facility] [id number], [place] [address] Apr, [facility] [address] [facility] [id number], [place] [address] Apr, [facility] [address] [facility] [id number], [place] [address] Mar, [facility] [address] [facility] [id number], [place] [address] Feb, [facility] [address] [facility] [id number], [place] [address] Sep, [facility] [address], [place] [address] Sep, [facility] [address]65[address], [place] [address] Aug, [facility] [address], [place] [address] Jun, [facility] [address], [place] [address] Jun, [facility] [address], [place] [address] May, [facility] [address] [id number], [place] [address] Dec, [facility] [address] [id number], [place] [address] Sep, IMMUNIZATIONS No Known Immunizations SOCIAL HISTORY Never Assessed REASON FOR VISIT Controlled Med Refill PLAN OF CARE VITAL SIGNS MEDICATIONS Medication Instructions Dosage Frequency Start Date End Date Duration Status Xanax 1 MG Orally Twice a day 1 tablet 12h 04 Jun, 2017 28 days Active [place] 5-325 MG Orally 3 times a day 1 tablet as needed 8h 22 Sep, 2017 28 days Active Dextroamphetamine Sulfate 10 MG Orally Three times a day 2 tablets 8h Sep, 28 days Active RESULTS No Results PROCEDURES [...]
--- OUTSIDE RECORDS SUMMARY | 2018-06-27 07:31 | XMS REPORT ---
Author ARABELLA Elliott Organization [employer] Address Unknown Phone Unavailable Care Team Providers Care Magento Web Developer Name Role Phone ARABELLA DIXON CP Unavailable Allergies No Known Allergies Problems Problem Type Condition Code Onset Dates Condition Status Problem High risk medications (not anticoagulants) long-term use Z79.899 Active Problem Need for prophylactic vaccination and inoculation, Influenza V04.81 Active Problem Diabetes type 2, controlled E11.9 Active Problem Diabetes mellitus without mention of complication, type II or unspecified type, not stated as uncontrolled 250.00 Active Medications No Known Medications Results No Known Results Summary Purpose [employer] Submission
--- OUTSIDE RECORDS SUMMARY | 2018-06-27 07:31 | XMS REPORT ---
Author ARABELLA Elliott Organization [employer] Address Unknown Phone Unavailable Care Team Providers Care Anesthesiology Fellow Name Role Phone ARABELLA DIXON CP Unavailable [...] not stated as uncontrolled 250.00 Active Medications Medication Code System Code Instructions Start Date End Date Status Dosage [place] [facility] [address]-08 5-325 MG 3 times a day September 23, 2014 1 tablet as needed Dexedrine [facility] [address]-03 10 MG Orally 3 times per day. October 04, 2014 2 tabs Results No Known Results Summary Purpose [employer] Submission
--- OUTSIDE RECORDS SUMMARY | 2018-06-27 07:31 | XMS REPORT ---
Author Author ARABELLA DIXON [facility] Address [address] [place] [address] Care Team Providers Care Catering Service Manager Name Role Phone ARABELLA DIXON Unavailable PROBLEMS Type Condition ICD9-CM Code [id number] Code Onset Dates Condition Status SNOMED Code Problem Diabetes type 2, controlled E11.9 Active 66028111 Problem High risk medications (not anticoagulants) long-term use Z79.899 Active 793593395 Problem Need for prophylactic vaccination and inoculation, Influenza V04.81 Active 163326724 Problem Diabetes mellitus without mention of complication, type II or unspecified type, not stated as uncontrolled 250.00 Active 959211369 ALLERGIES Unknown Allergies SOCIAL HISTORY No smoking Hx information available PLAN OF CARE VITAL SIGNS MEDICATIONS Medication Instructions Dosage Frequency Start Date End Date Duration Status Dextroamphetamine Sulfate 10 MG TAKE TWO TABLETS BY MOUTH THREE TIMES DAILY 28 Active Hydrocodone-Acetaminophen 5-325 MG TAKE ONE TABLET BY MOUTH THREE TIMES DAILY NEEDED 28 Active RESULTS No Results PROCEDURES No Known procedures IMMUNIZATIONS No Known Immunizations
--- OUTSIDE RECORDS SUMMARY | 2018-06-27 07:31 | XMS REPORT ---
Author Author ROSAURA DONAHUE Organization [facility] Address [address] [place] [address] Care Team Providers Care Senior Quality Control Inspector Name Role Phone GODFREY ROSAURA Unavailable PROBLEMS Type Condition ICD9-CM Code [id number] Code Onset Dates Condition Status SNOMED Code Problem High risk medications (not anticoagulants) long-term use Z79.899 Active 016514705 Problem Mood disorder F39 Active 03044186 Problem Anxiety F41.9 Active 45007525 Problem Diabetes type 2, controlled E11.9 Active 69303134 Problem Obstructive sleep apnea syndrome G47.33 Active 57185933 Problem Migraine without aura and without status migrainosus, not intractable G43.009 Active 355795978 Problem Morbid obesity due to excess calories E66.01 Active 971040358 ALLERGIES No Information SOCIAL HISTORY Never Assessed PLAN OF CARE VITAL SIGNS MEDICATIONS Medication Instructions Dosage Frequency Start Date End Date Duration Status Dextroamphetamine Sulfate 10 MG Orally Three times a day 2 tablets 8h November, 28 days Active [place] 5-325 MG Orally 4 times a day 1 tablet as needed 6h November, 28 days Active RESULTS No Results PROCEDURES No Known procedures IMMUNIZATIONS No Known Immunizations MEDICAL (GENERAL) HISTORY Type Description Date Medical History Type II diabetic Medical History hypertension Medical History MRSA Medical History PCOS Medical History 3 slipped disk in back. Surgical History knee surgery Hospitalization History surgeries Hospitalization History [facility] Pt[facility] unable to walk after waking up from a nap. 12/2015
--- OUTSIDE RECORDS SUMMARY | 2018-06-27 07:31 | XMS REPORT ---
Author ARABELLA Elliott Organization [employer] Address Unknown Phone Unavailable Care Team Providers Care Warp Bleaching Vat Tender Name Role Phone ARABELLA DIXON CP Unavailable [...] Instructions Start Date End Date Status Dosage Dextroamphetamine Sulfate [facility] 10354644720 10 MG May 28, 2016 TAKE TWO TABLETS BY MOUTH THREE TIMES DAILY [place] [facility] [address]-05 5-325 MG Orally 3 times a day May 28, 2016 1 tablet as needed Results No Known Results Summary Purpose [employer] Submission
--- OUTSIDE RECORDS SUMMARY | 2018-06-27 07:31 | XMS REPORT ---
Author ARABELLA Elliott Organization [employer] Address Unknown Phone Unavailable Care Team Providers Care Strategic Marketing Associate Name Role Phone ARABELLA DIXON CP Unavailable Allergies No Known Allergies Problems Problem Type Condition ICD-9 Code Onset Dates Condition Status Problem Diabetes mellitus without mention of complication, type II or unspecified type, not stated as uncontrolled 250.00 Active Problem Need for prophylactic vaccination and inoculation, Influenza V04.81 Active Medications Medication Code System Code Instructions Start Date End Date Status Dosage [facility] [address]-04 5-325 MG MUST MAKE APPT FOR FURTHER REFILLS September 23, 2014 take 1 tablet by oral route every 6 hours as needed for pain PRN pain Results No Known Results Summary Purpose [employer] Submission
--- OUTSIDE RECORDS SUMMARY | 2018-06-27 07:31 | XMS REPORT ---
Author Author ARABELLA DIXON [facility] Address [address] [place] [address] Care Team Providers Care Explosive Operator Fuse Name Role Phone ARABELLA DIXON Unavailable PROBLEMS Type Condition ICD9-CM Code ODU61-MC Code Onset Dates Condition Status SNOMED Code Problem High risk medications (not anticoagulants) long-term use Z79.899 Active 013830481 Problem Mood disorder F39 Active 04168090 Problem Anxiety F41.9 Active 59814950 Problem Diabetes type 2, controlled E11.9 Active 60983210 Problem Obstructive sleep apnea syndrome G47.33 Active 14004350 Problem Migraine without aura and without status migrainosus, not intractable G43.009 Active 259846029 Problem Morbid obesity due to excess calories E66.01 Active 346519482 ALLERGIES Substance Reaction Event Type Date Status Wellbutrin Unknown Drug Allergy Sep, Active Effexor increases depression -JCriserRN Drug Allergy Sep, Active SOCIAL HISTORY Never Assessed PLAN OF CARE VITAL SIGNS Height 69 in 2016-09-12 Weight 286.3 lbs 2016-09-12 Temperature 97.9 degrees Fahrenheit 2016-09-12 Heart Rate 80 bpm 2016-09-12 Respiratory Rate 24 2016-09-12 BMI 42.27 kg/m2 2016-09-12 Blood pressure systolic 146 mmHg 2016-09-12 Blood pressure diastolic 82 mmHg 2016-09-12 MEDICATIONS Medication Instructions Dosage Frequency Start Date End Date Duration Status Ibuprofen 200 MG Orally every 6 hrs 1 tablet as needed 6h Active Dexedrine 10 MG Orally 3 times per day. 2 tabs Sep, Active Neurontin 100 MG Orally Three times a day 1 capsule 8h Jun, Active Dextroamphetamine Sulfate 10 mg Orally Three times a day 2 tablets 8h 09 Aug, 2016 28 days Active Tizanidine HCl 4 MG Orally every 8 hrs 1 capsule as needed 8h Active Actos 15 MG Orally Once a day 1 tablet 24h Active GlipiZIDE 5 MG Orally 2 times a day 1 tablet 12h 30 Active [place] 5-325 MG Orally 4 times a day 1 tablet as needed 6h Sep, 28 days Active Neurontin 300 MG Orally Three times a day 1 capsule 8h Oct, 30 days Active RESULTS No Results PROCEDURES No [...]
--- OUTSIDE RECORDS SUMMARY | 2018-06-27 07:31 | XMS REPORT ---
Author ARABELLA Elliott Organization [employer] Address Unknown Phone Unavailable Care Team Providers Care Account Executive Software Sales Name Role Phone ARABELLA DIXON CP Unavailable [...] Instructions Start Date End Date Status Dosage [facility] [address]-69 5-325 MG Orally 3 times a day September 23, 2014 1 tablet as needed Results No Known Results Summary Purpose [employer] Submission
--- OUTSIDE RECORDS SUMMARY | 2018-06-27 07:31 | XMS REPORT ---
Author Author CORNELIO TOLENTINO [facility] [employer] Address Unknown Phone Unavailable Care Team Providers Care Health Coach Name Role Phone CORNELIO TOLENTINO CP Unavailable Allergies, Adverse Reactions, Alerts Substance Reaction Event Type Wellbutrin Info Not Available Drug Allergy Effexor increases depression -JCriserRN Drug Allergy Problems Problem Type Condition Code Onset Dates Condition Status Problem Need for prophylactic vaccination and inoculation, Influenza V04.81 Active Problem Diabetes mellitus without mention of complication, type II or unspecified type, not stated as uncontrolled 250.00 Active Problem Diabetes type 2, controlled E11.9 Active Assessment Abscess and cellulitis L03.90 Active Medications Medication Code System Code Instructions Start Date End Date Status Dosage Clindamycin HCl [facility] [address]-74 300 MG Orally 2 times a day Aug 25, 2015 Sep 04, 2015 1 capsule Tizanidine HCl [facility] 18847287153 4 MG Orally every 8 hrs 1 capsule as needed Blood Glucose Test Strip ND 0 TID. One Touch Ultra per insurance. DX: E11.9 Aug 23, 2015 as directed Amoxicillin [facility] [address]-88 500 MG Orally every 12 hrs 1 tablet Lisinopril [facility] 06049273229 10 MG Orally Once a day 1 tablet [place] 0 32 mm Mar 15, 2014 1 1 time per day use as directed with Victoza Diflucan [facility] [address]-89 150 MG Orally Once a day Jun 27, 2015 1 tablet Blood Glucose Monitor System [facility] [address] w/Device Please dispense one touch ultra per pt insurance. DX: E11.9 Aug 23, 2015 as directed Contour Blood Glucose System [place] 0 Lancets 2 times a day Aug 01, 2015 test blood sugar Ibuprofen [facility] [address]-19 200 MG Orally every 6 hrs 1 [place] [address]-96 150 MG Orally Once a day Aug 01, 2015 1 tablet Victoza [facility] [address]-68 18 MG/3ML Subcutaneous Once a day 0.2 ml [place] [facility] [address]-13 5-325 MG 3 times a day September 23, 2014 1 tablet as needed Dexedrine [facility] [address]-25 10 MG Orally 3 times per day. October 04, 2014 2 tabs GlipiZIDE [facility] [address]-52 5 MG Orally 2 times a day Aug 01, 2015 1 tablet Procedures Procedure Coding System Code Date Office Visit, Est Pt., Level 3 CPT-4 23606 Aug 25, 2015 Vital Signs Date/Time: Aug 25, 2015 Temperature 97.6 F Weight 286.8 lbs Height 69 in BMI 42.35 Index Blood Pressure Diastolic 78 mmHg Blood Pressure Systolic 126 mmHg Cardiac Monitoring Heart Rate 64 bpm Results No Known Results Summary Purpose [employer] Submission
--- OUTSIDE RECORDS SUMMARY | 2018-06-27 07:31 | XMS REPORT ---
Author ARABELLA Elliott Organization [employer] Address Unknown Phone Unavailable Care Team Providers Care Improvement Auditor Name Role Phone ARABELLA DIXON CP Unavailable Allergies No Known Allergies Problems Problem Type Condition Code Onset Dates Condition Status Problem Diabetes mellitus without mention of complication, type II or unspecified type, not stated as uncontrolled 250.00 Active Problem Need for prophylactic vaccination and inoculation, Influenza V04.81 Active Medications Medication Code System Code Instructions Start Date End Date Status Dosage Dexedrine [facility] [address]-79 10 MG Orally 3 times per day October 04, 2014 2 tabs Results No Known Results Summary Purpose [employer] Submission
--- OUTSIDE RECORDS SUMMARY | 2018-06-27 07:31 | XMS REPORT ---
Author Author ALEXIS JACKSON [facility] eClinicalWorks Address Unknown Phone Unavailable Care Team Providers Care Pipe Racker Name Role Phone ALEXIS JACKSON CP Unavailable Allergies No Known Allergies Problems [...] Date End Date Status Dosage Dextroamphetamine Sulfate [facility] 12950760890 10 MG TAKE TWO TABLETS BY MOUTH THREE TIMES DAILY Results No Known Results Summary Purpose [employer] Submission
--- OUTSIDE RECORDS SUMMARY | 2018-06-27 07:31 | XMS REPORT ---
Author ARABELLA Elliott Organization [employer] Address Unknown Phone Unavailable Care Team Providers Care Supervisor Real Estate Office Name Role Phone ARABELLA DIXON CP Unavailable Allergies No Known Allergies Problems Problem Type Condition Code Onset Dates Condition Status Problem Need for prophylactic vaccination and inoculation, Influenza V04.81 Active Problem Diabetes mellitus without mention of complication, type II or unspecified type, not stated as uncontrolled 250.00 Active Problem Diabetes type 2, controlled E11.9 Active Medications Medication Code System Code Instructions Start Date End Date Status Dosage Contour Blood Glucose System NDC 0 Lancets 2 times a day Aug 01, 2015 test blood sugar Results No Known Results Summary Purpose [employer] Submission
--- OUTSIDE RECORDS SUMMARY | 2018-06-27 07:31 | XMS REPORT ---
Author Author ARABELLA DIXON [facility] Address [address] [place] [address] Care Team Providers Care Ekg Monitor Tech Name Role Phone ARABELLA DIXON Unavailable PROBLEMS Type Condition ICD9-CM Code YGG92-GS Code Onset Dates Condition Status SNOMED Code Problem High risk medications (not anticoagulants) long-term use Z79.899 Active 813261085 Problem Mood disorder F39 Active 54957587 Problem Anxiety F41.9 Active 57040291 Problem Diabetes type 2, controlled E11.9 Active 03091588 Problem Obstructive sleep apnea syndrome G47.33 Active 09108811 Problem Migraine without aura and without status migrainosus, not intractable G43.009 Active 806565250 Problem Morbid obesity due to excess calories E66.01 Active 022075021 ALLERGIES No Information SOCIAL HISTORY Never Assessed PLAN OF CARE VITAL SIGNS MEDICATIONS Unknown [...]
--- OUTSIDE RECORDS SUMMARY | 2018-06-27 07:31 | XMS REPORT ---
Author Author ARABELLA DIXON [facility] Address [address] [place] [address] Care Team Providers Care Svp Digital Sales Food & Cooking Name Role Phone ARABELLA DIXON Unavailable PROBLEMS Type Condition ICD9-CM Code VTQ13-BY Code Onset Dates Condition Status SNOMED Code Problem Anxiety F41.9 Active 93078121 Problem Migraine without aura and without status migrainosus, not intractable G43.009 Active 135947558 Problem High risk medications (not anticoagulants) long-term use Z79.899 Active 169773465 Problem Obstructive sleep apnea syndrome G47.33 Active 17531097 Problem Morbid obesity due to excess calories E66.01 Active 384352564 Problem Diabetes type 2, controlled E11.9 Active 27872859 ALLERGIES Unknown Allergies SOCIAL HISTORY No smoking Hx information available PLAN OF CARE VITAL SIGNS MEDICATIONS Unknown Medications RESULTS No Results PROCEDURES No Known procedures IMMUNIZATIONS No Known Immunizations
--- OUTSIDE RECORDS SUMMARY | 2018-06-27 07:31 | XMS REPORT ---
Author Author ARABELLA DIXON Organization [facility] Address [address] [place] [address] Care Team Providers Care Copy Lathe Tender Name Role Phone ARABELLA DIXON Unavailable PROBLEMS Type Condition ICD9-CM Code PBO01-BO Code Onset Dates Condition Status SNOMED Code Problem High risk medications (not anticoagulants) long-term use Z79.899 Active 104243791 Problem Mood disorder F39 Active 19363731 Problem Anxiety F41.9 Active 55985901 Problem Diabetes type 2, controlled E11.9 Active 57923668 Problem Obstructive sleep apnea syndrome G47.33 Active 07231936 Problem Migraine without aura and without status migrainosus, not intractable G43.009 Active 889304477 Problem Morbid obesity due to excess calories E66.01 Active 231723150 ALLERGIES No Information SOCIAL HISTORY Never Assessed PLAN OF CARE VITAL SIGNS MEDICATIONS Medication Instructions Dosage Frequency Start Date End Date Duration Status Dextroamphetamine Sulfate 10 MG Orally Three times a day 2 tablets 8h Dec, 28 days Active [place] 5-325 MG Orally 4 times a day 1 tablet as needed 6h Dec, 28 days Active RESULTS No Results [...]
--- OUTSIDE RECORDS SUMMARY | 2018-06-27 07:31 | XMS REPORT ---
Author Author ARABELLA DIXON Organization [facility] Address [address] [place] [address] Care Team Providers Care Emt P Name Role Phone ARABELLA DIXON Unavailable PROBLEMS Type Condition ICD9-CM Code ORN87-XG Code Onset Dates Condition Status SNOMED Code Problem High risk medications (not anticoagulants) long-term use Z79.899 Active 169666184 Problem Mood disorder F39 Active 52436947 Problem Anxiety F41.9 Active 74942991 Problem Diabetes type 2, controlled E11.9 Active 14556986 Problem Obstructive sleep apnea syndrome G47.33 Active 95105524 Problem Migraine without aura and without status migrainosus, not intractable G43.009 Active 756928689 Problem Morbid obesity due to excess calories E66.01 Active 676183147 ALLERGIES Substance Reaction Event Type Date Status Wellbutrin Unknown Drug Allergy Mar, Active Effexor increases depression -JCriserRN Drug Allergy Mar, Active ENCOUNTERS Encounter Location Date Diagnosis [facility] [id number] [place] [address] 27762- 4374 Dec, [facility] [id number] [place] [address] 97959- 9089 Oct, Diabetes type 2, controlled E11.9 [facility] [address] [address] 7037 Sep, Diabetes type 2, controlled E11.9 [facility] [id number] [place] [address] 59353- 2595 Sep, [facility] [place] [id number] [place] [address] 18723- 8117 Aug, Diabetes type 2, controlled E11.9 and Morbid obesity due to excess calories E66.01 [facility] [place] [id number] [place] [address] 47412- 0064 Jul, Anxiety F41.9 [facility] [place] [address] [address] 2578 Jul, [facility] [place] [id number] [place] [address] 76962- 6808 Jul, Anxiety F41.9 ; Mood disorder F39 ; Morbid obesity due to excess calories E66.01 and Diabetes type 2, controlled E11.9 [facility] [place] [id number] [place] [address] 83094- 1586 Jun, Anxiety F41.9 [facility] [place] [id number] [place] [address] 84351- 2362 Jun, Anxiety F41.9 ; Morbid obesity due to excess calories E66.01 and Diabetes type 2, controlled E11.9 [facility] [id number] [place] [address] 80771- 5972 May, Migraine without aura and without status migrainosus, not intractable G43.009 ; Diabetes type 2, controlled E11.9 and Morbid obesity due to excess calories E66.01 [facility] [id number] [place] [address] 83393- 1352 Apr, Migraine without aura and without status migrainosus, not intractable G43.009 ; Diabetes type 2, controlled E11.9 and Morbid obesity due to excess calories E66.01 [facility] [place] [address] [place] [address] 11063- 5041 Apr, Diabetes type 2, controlled E11.9 and Morbid obesity due to excess calories E66.01 [facility] [place] [address] [place] [address] 09201- 9767 Mar, Diabetes type 2, controlled E11.9 and Morbid obesity due to excess calories E66.01 [facility] [place] [address] [place] [address] 61154- 4039 Mar, Diabetes type 2, controlled E11.9 and Mood disorder F39 [facility] [place] [id number] [address] 3278 Feb, Morbid obesity due to excess calories E66.01 and Diabetes type 2, controlled E11.9 [facility] [place] [id number] [place] [address] 42132- 7049 Jan, Diabetes type 2, controlled E11.9 and Morbid obesity due to excess calories E66.01 [facility] [id number] [place] [address] 01425- 5209 Dec, Diabetes type 2, controlled E11.9 and Morbid obesity due to excess calories E66.01 [facility] [id number] [place] [address] 78255- 0200 Dec, Morbid obesity due to excess calories E66.01 [facility] [id number] [place] [address] 90029- 6121 November, Diabetes type 2, controlled E11.9 and Morbid obesity due to excess calories E66.01 [facility] [id number] [place] [address] 43381- 5813 November, Anxiety F41.9 and Injury of right foot, initial encounter S99.921A [facility] [id number] [place] [address] 24239- 9591 November, Diabetes type 2, controlled E11.9 and Morbid obesity due to excess calories E66.01 [facility] [address] [address]- 4023 November, [facility] [id number] [place] [address] 46944- 0641 Oct, [facility] [id number] [place] [address] 83469- 0829 Oct, Family history of brain aneurysm Z82.49 and Migraine without aura and without status migrainosus, not intractable G43.009 [facility] [address] [place] [address] 92552- 1716 Oct, Diabetes type 2, controlled E11.9 [facility] [place] [address] [place] [address] 89084- 5914 Oct, Morbid obesity due to excess calories E66.01 ; Family history of brain aneurysm Z82.49 and Migraine without aura and without status migrainosus, not intractable G43.009 [facility] [place] [id number] [place] [address] 88238- 3545 Oct, Diabetes type 2, controlled E11.9 and Morbid obesity due to excess calories E66.01 [facility] [place] [id number] [place] [address] 97960- 6116 Sep, [place] [address] 32165- 6703 Sep, Diabetes type 2, controlled E11.9 [facility] [id number] [place] [address] 74983- 7231 Sep, Morbid obesity due to excess calories E66.01 [facility] [id number] [place] [address] 30405- 1887 Aug, Exposure to hepatitis C Z20.5 [facility] [place] [id number] [place] [address] 49877- 3895 Aug, Diabetes type 2, controlled E11.9 [facility] [id number] [place] [address] 68710- 2612 Jul, Exposure to hepatitis C Z20.5 [facility] [place] [id number] [place] [address] 34797- 7689 Jul, Exposure to hepatitis C Z20.5 [facility] [address] [place] [address] 75726- 0912 Jul, [facility] [id number] [place] [address] 27035- 5933 Jul, Diabetes type 2, controlled E11.9 [facility] [id number] [place] [address] 19199- 3803 Jun, [facility] [id number] [address]- 4971 Jun, Diabetes type 2, controlled E11.9 ; Pain of left foot M79.672 and Pain in right foot M79.671 [facility] [place] [address] [facility] [id number] [address]- 9578 May, [facility] [place] [address] [facility] [id number] [place] [address] 86934- 4056 Apr, [facility] [place] [address] [facility] [id number] [address]- 9567 Apr, [facility] [place] [id number] [place] [address] 14892- 9545 Mar, [facility] [place] [id number] [place] [address] 40216- 4488 Feb, [facility] [place] [id number] [place] [address] 31448- 0779 Feb, [facility] [place] [address] [address]- 8238 Jan, [facility] [address] [place] [address] 15033- 9557 Dec, Diabetes type 2, controlled E11.9 ; 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 and Abscess, abdomen K65.1 [facility] [address], [place] [address]- 8034 Dec, Shoulder pain, right 719.41 [facility] [place] [address] [address]- 5895 November, [facility] [id number] [address]- 3011 November, [facility] [place] [address] [address]- 7574 Oct, [facility] [id number] [address]- 0971 Sep, [facility] [address], [place] [address]- 0975 Sep, [facility] [address] [place] [address] 47045 -2093 29 Aug, 2015 [facility] [address] [place] [address] 76023- 8046 Aug, [facility] [id number] [place] [address] 32165- 1509 Aug, Cellulitis, unspecified L03.90 ; Cutaneous abscess, unspecified L02.91 ; Diabetes type 2, controlled E11.9 ; Migraine G43.909 and Bilateral low back pain with sciatica, sciatica laterality unspecified M54.40 [facility] [address], [place] [address] -2035 Aug, Abscess and cellulitis L03.90 [facility] [place] [address] [address]- 7741 Aug, [facility] [address] [place] [address] 10289- 8282 Aug, [facility] [place] [address] [address]- 2681 Jul, [facility] [address], [place] [address]- 3823 Jul, Diabetes type 2, controlled E11.9 [facility] [place] [address] [place] [address] 27728- 8231 Jul, Diabetes type 2, controlled E11.9 [facility] [place] [address] [place] [address] 41364- 5535 Jun, Diabetes type 2, controlled E11.9 ; Bilateral low back pain with sciatica, sciatica laterality unspecified M54.40 and Morbid obesity, unspecified obesity type E66.01 [facility] [place] [id number] [address]- 4166 Jun, [facility] [place] [address] [facility] [id number], [place] [address]- 1096 May, [facility] [address] [facility] [id number] 5079 Apr, [facility] [place] [address], [place] [address]- 4733 Apr, [facility] [place] [address] [facility] [id number], [place] [address]- 2637 Apr, [facility] [place] [address], [place] [address]- 4796 Mar, [facility] [place] [address], [place] [address]- 6968 Mar, [facility] [place] [address] [address]- 3884 Mar, [facility] [place] [address], [place] [address]- 0677 Feb, [facility] [address] [address]- 6620 Feb, [facility] [place] [address], [place] [address]- 2548 Feb, [facility] [place] [address], [place] [address]- 8312 Feb, [facility] [id number] [address]- 8977 Feb, Diabetes mellitus without mention of complication, type II or unspecified type, not stated as uncontrolled 250.00 [facility] [place] [id number] 9563 Feb, [facility] [place] [id number] [address]- 0605 Feb, [facility] [place] [address], [place] [address]- 8713 Jan, Diabetes mellitus without mention of complication, type II or unspecified type, not stated as uncontrolled 250.00 and Cellulitis and abscess 682.9 [facility] [place] [address], [place] [address]- 9167 Jan, [facility] [place] [id number] [place] [address] 14795- 1711 Jan, [facility] [place] [id number] [place] [address] 18575- 9938 Jan, [facility] [place] [id number] [place] [address] 554930- 0329 Dec, [facility] [place] [id number] [place] [address] 69629- 9584 Dec, [facility] [place] [id number] [place] [address] 18478- 2171 Dec, [facility] [place] [address], [place] [address]- 4717 November, [facility] [place] [id number] [place] [address] 05636- 3753 Oct, Shoulder pain, right 719.41 [facility] [place] [address], [place] [address]- 8631 Oct, [facility] [place] [address], [place] [address]- 9495 Oct, [facility] [place] [address], [place] [address]- 2840 Sep, [facility] [place] [id number] 4658 Sep, [facility] [place] [address], [place] [address]- 7031 Sep, [facility] [place] [address], [place] [address]- 3337 Sep, [facility] [place] [facility] [address] [id number] [place] [address]- 7738 Sep, [facility] [place] [facility] [address] [id number] [place] [address]- 4660 24 Sep, 2014 [facility] [place] [facility] [address] [id number] [place] [address]- 1545 Sep, [facility] [place] [facility] [address] [id number] [place] [address]- 3753 Sep, [facility] [place] [facility] [address] [id number] [place] [address]- 2786 Aug, [facility] [place] [facility] [address] [id number] [place] [address]- 2207 24 Aug, 2014 [facility] [place] [facility] [address] [id number] [place] [address]- 8867 Aug, [facility] [place] [facility] [address] [id number] [place] [address]- 5485 Aug, [facility] [place] [facility] [address] [id number] [place] [address]- 4417 Jul, [facility] [place] [facility] [address] [id number] [place] [address]- 2724 Jul, [facility] [place] [facility] [address] [id number] [place] [address]- 2036 Jul, [facility] [place] [facility] [address] [id number] [place] [address]- 6007 Jul, [facility] [place] [facility] [address] [id number] [place] [address]- 3341 Jul, [facility] [place] [facility] [address] [id number] [place] [address]- 2330 Jul, [facility] [place] [facility] [address] [id number] [place] [address]- 2928 Jun, [facility] [place] [facility] [address] [id number] [place] [address]- 1554 24 Jun, 2014 [facility] [place] [facility] [address] [id number] [place] [address]- 8337 Jun, [facility] [place] [facility] [address] [id number] [place] [address]- 9429 19 Jun, 2014 [facility] [place] [facility] [address] [id number] [place] [address]- 8109 18 Jun, 2014 [facility] [place] [facility] [address] [id number] [place] [address]- 4029 18 Jun, 2014 [facility] [place] [facility] [address] [id number] [place] [address]- 0827 Jun, [facility] [place] [facility] [address] [id number] [place] [address]- 7440 Jun, [facility] [place] [facility] [address] [id number] [place] [address]- 7538 May, [facility] [place] [facility] [address] [id number] [place] [address]- 3649 May, [facility] [place] [facility] [address] [id number] [place] [address]- 6659 May, [facility] [place] [facility] [address] [id number] [place] [address]- 5264 18 May, 2014 [facility] [place] [facility] [address] [id number] [place] [address]- 0035 May, [facility] [place] [facility] [address] [id number] [place] [address]- 6097 May, [facility] [place] [facility] [address] [id number] [place] [address]- 4299 Apr, [facility] [place] [facility] [address] [id number] [place] [address]- 8628 Apr, [facility] [place] [facility] [address] [id number] [place] [address]- 1726 Apr, [facility] [place] [facility] [address] [id number] [place] [address]- 0907 Apr, [facility] [place] [facility] [address] [id number] [place] [address]- 9790 Apr, [facility] [place] [facility] [address] [id number] [place] [address]- 1541 Apr, [facility] [place] [facility] [address] [id number] [place] [address]- 5154 Apr, [facility] [place] [facility] [address] [id number] [place] [address]- 0736 Mar, [facility] [place] [facility] [address] [id number] [place] [address] Mar, [facility] [place] [facility] [address] [id number] [place] [address] Mar, [facility] [place] [facility] [address] [id number] [place] [address] Mar, [facility] [place] [facility] [address] [id number] [place] [address] Feb, [facility] [place] [facility] [address] [id number] [place] [address] Feb, [facility] [place] [facility] [address] [id number] [place] [address] Feb, [facility] [place] [facility] [address] [id number] [place] [address] Feb, [facility] [place] [facility] [address] [id number] [place] [address] Feb, [facility] [place] [facility] [address] [id number] [place] [address] Feb, [facility] [place] [facility] [address] [id number] [place] [address] Jan, [facility] [place] [facility] [address] [id number] [place] [address] Jan, [facility] [place] [facility] [address] [id number] [place] [address] Jan, [facility] [place] [facility] [address] [id number] [place] [address] Jan, [facility] [place] [facility] [address] [id number] [place] [address] Jan, [facility] [place] [facility] [address] [id number] [place] [address] Jan, [facility] [place] [facility] [address] [id number] [place] [address] Jan, [facility] [place] [facility] [address] [id number] [place] [address] Jan, [facility] [place] [facility] [address] [id number] [place] [address] Jan, [facility] [place] [facility] [address] [id number] [place] [address] Jan, [facility] [place] [facility] [address] [id number] [place] [address] Dec, [facility] [place] [facility] [address] [id number] [place] [address] Dec, [facility] [place] [facility] [address] [id number] [place] [address] Dec, [facility] [place] [facility] [address] [id number] [place] [address] Dec, [facility] [place] [facility] [address] [id number] [place] [address] November, [facility] [place] [facility] [address] [id number] [place] [address] November, [facility] [place] [facility] [address] [id number] [place] [address] November, [facility] [place] [facility] [address] [id number] [place] [address] November, [facility] [place] [facility] [address] [id number] [place] [address] Oct, [facility] [place] [facility] [address] [id number] [place] [address] Oct, [facility] [place] [facility] [address] [id number] [place] [address] Oct, [facility] [place] [facility] [address] [id number] [place] [address] Oct, [facility] [place] [facility] [address] [id number] [place] [address] Oct, [facility] [place] [facility] [address] [id number] [place] [address] Oct, [facility] [place] [facility] [address] [id number] [place] [address] Oct, [facility] [place] [facility] [address] [id number] [place] [address] Oct, [facility] [place] [facility] [address] [id number] [place] [address] Sep, [facility] [place] [facility] [address] [id number] [place] [address] Sep, [facility] [place] [facility] [address] [id number] [place] [address] Sep, [facility] [place] [facility] [address] [id number] [place] [address] Sep, [facility] [place] [facility] [address] [id number] [place] [address] Sep, [facility] [place] [facility] [address] [id number] [place] [address] Sep, [facility] [place] [facility] [address] [id number] [place] [address] Aug, [facility] [place] [facility] [address] [id number] [place] [address] Aug, [facility] [place] [facility] [address] [id number] [place] [address] Jul, [facility] [place] [facility] [address] [facility] [id number] [place] [address] Jul, [facility] [place] [facility] [address] [id number], [place] [address] Jul, [facility] [place] [facility] [address] [id number] [place] [address] Jul, [facility] [place] [facility] [address] [id number] [place] [address] Jul, [facility] [place] [facility] [address] [id number], [place] [address] Jul, [facility] [place] [facility] [address] [id number], [place] [address] Jul, [facility] [place] [facility] [address] [id number], [place] [address] Jul, [facility] [place] [facility] [address] [id number], [place] [address] Jun, [facility] [place] [facility] [address] [id number], [place] [address] Jun, [facility] [place] [facility] [address] [id number], [place] [address] May, [facility] [place] [facility] [address] [id number] [place] [address] May, [facility] [place] [facility] [address] [id number], [place] [address] Apr, [facility] [place] [facility] [address] [id number] [place] [address] Apr, [facility] [place] [facility] [address] [id number] [place] [address] 29 Apr, 2012 [facility] [address] [id number] [place] [address] Apr, 2012 [facility] [place] [facility] [address] [id number] [place] [address] Apr, 2012 [facility] [address] [id number] [place] [address] Apr, 2012 [facility] [place] [facility] [address] [id number] [place] [address] Apr, 2012 [facility] [address] [id number] [place] [address] Apr, [facility] [address] [id number] [place] [address] Apr, [facility] [place] [facility] [address] [id number] [place] [address] Apr, [facility] [address] [id number] [place] [address] Apr, [facility] [place] [facility] [address] [id number] [place] [address] Apr, [facility] [address] [id number] [place] [address] Apr, [facility] [place] [facility] [address] [id number] [place] [address] Apr, [facility] [place] [facility] [address] [id number] [place] [address] Apr, [facility] [place] [facility] [address] [id number] [place] [address] Mar, [facility] [place] [facility] [address] [id number] [place] [address] 27 Mar, 2013 [facility] [place] [facility] [address] [id number] [place] [address] 26 Mar, 2013 [facility] [place] [facility] [address] [id number] [place] [address] 25 Mar, 2013 [facility] [place] [facility] [address] [id number] [place] [address] 16 Mar, 2013 [facility] [place] [facility] [address] [id number] [place] [address] Mar, [facility] [place] [facility] [address] [id number] [place] [address] Jan, [facility] [place] [facility] [address] [id number] [place] [address] Jan, [facility] [place] [facility] [address] [id number] [place] [address] Jan, [facility] [place] [facility] [address] [id number] [place] [address] Dec, [facility] [place] [facility] [address] [id number], [place] [address] Oct, [facility] [place] [facility] [address] [id number] [place] [address] May, [facility] [place] [facility] [address] [id number], [place] [address] 16 May, 2012 [facility] [place] [facility] [address] [id number], [place] [address] Jun, [facility] [place] [facility] [address] [id number], [place] [address] May, [facility] [place] [facility] [address] [id number], [place] [address] May, [facility] [place] [facility] [address] [id number], [place] [address] 03 May, 2011 [facility] [place] [facility] [address] [id number], [place] [address] 14 Apr, 2011 [facility] [place] [facility] [address] [id number], [place] [address] 13 Apr, 2011 [facility] [address] [id number] [place] [address] 48[address] 17 Feb, 2011 [facility] [place] [facility] [address] [id number] [place] [address]- 9[address] 16 Feb, 2011 [facility] [place] [facility] [address] [id number] [place] [address]- 7[address] 10 Dec, 2010 [facility] [place] [facility] [address] [id number] [place] [address]- [address] 12 Oct, 2010 [facility] [address] [id number] [place] [address]- 1458 19 Sep, 2010 [facility] [place] [facility] [address] [id number] [place] [address]- 64[address] 10 Sep, 2010 [facility] [address] [id number] [place] [address]- 1551 20 Jul, 2010 [facility] [place] [facility] [address] [id number] [place] [address]- 1259 11 Jul, 2010 [facility] [address] [id number] [place] [address]- [address] 28 Jun, 2010 [facility] [place] [facility] [address] [id number] [place] [address]- [address] 23 Jun, 2010 [facility] [place] [facility] [address] [id number] [place] [address]- 1831 14 Jun, 2010 [facility] [place] [facility] [address] [id number] [place] [address]- 3297 14 Jun, 2010 [facility] [place] [facility] [address] [id number] [place] [address]- 1662 08 Jun, 2010 [facility] [place] [facility] [address] [id number] [place] [address]- 9275 30 May, 2010 [facility] [place] [facility] [address] [facility] [id number] [place] [address]- [address] 23 May, 2010 [facility] [place] [facility] [address] [id number] [place] [address]- 2685 17 May, 2010 [facility] [place] [facility] [address] [id number] [place] [address]- 7440 17 May, 2010 [facility] [place] [facility] [address] [id number] [place] [address] 2546 17 May, 2010 [facility] [place] [facility] [address] [id number] [place] [address]- 6186 17 May, 2010 [facility] [place] [facility] [address] [id number] [place] [address]- 2826 23 Apr, 2010 [facility] [place] [facility] [address] [id number] [place] [address]- [address] 14 Apr, 2010 [facility] [place] [facility] [address] [id number] [place] [address]- 72[address] 10 Mar, 2010 [facility] [place] [facility] [address] [id number] [place] [address]- 0[address] 10 Feb, 2010 [facility] [place] [facility] [address] [id number] [place] [address]- 4371 17 Sep, 2009 [facility] [place] [facility] [address] [id number] [place] [address]- 275[address] Sep, [facility] [place] [facility] [address] [facility] [id number] [place] [address]- 28[address] 18 Aug, 2009 [facility] [place] [facility] [address] [id number] [place] [address]- 5636 Jun, [facility] [place] [facility] [address] [id number] [place] [address] 2541 Jun, [facility] [place] [facility] [address] [id number] [place] [address]- 3176 May, [facility] [place] [facility] [address] [id number] [place] [address]- 2546 Dec, [facility] [place] [facility] [address] [id number] [place] [address] Sep, IMMUNIZATIONS No Known Immunizations SOCIAL HISTORY Never Assessed REASON FOR VISIT Pain (acute) - Pt states she can not take over half of her medicines because her bs drop to below 62. - Ayleen SIMS PLAN OF CARE VITAL SIGNS Height 69 in 2017-03-23 Weight 272.5 lbs 2017-03-23 Temperature 99.0 degrees Fahrenheit 2017-03-23 Heart Rate 84 bpm 2017-03-23 Respiratory Rate 22 2017-03-23 BMI 40.24 kg/m2 2017-03-23 Blood pressure systolic 112 mmHg 2017-03-23 Blood pressure diastolic 82 mmHg 2017-03-23 MEDICATIONS Medication Instructions Dosage Frequency Start Date End Date Duration Status Blood Glucose Monitor System w/Device as directed Aug, Active [place] 5-325 MG Orally 4 times a day 1 tablet as needed 6h 24 Feb, 2017 28 days Active Lisinopril 10 mg Orally Once a day 1 tablet 24h 30 Active Ativan 0.5 MG Orally every 6 hrs 1 tablet as needed 6h Mar, Active Dextroamphetamine Sulfate 10 MG Orally Three times a day 2 tablets 8h Mar, 28 days Active Voltaren 1 % Transdermal 2 times a day 2 grams on each foot 12h 30 Dec, 2015 Active Blood Glucose Test Strip as directed Aug, Active Contour Blood Glucose System Lancets test blood sugar 12h 20 Jul, 2015 Active Vitamins 0.8 MG Orally Once a day 1 tablet 24h Active Ibuprofen 200 MG Orally every 6 hrs 1 tablet as needed 6h Active RESULTS Name Result Date Reference Range A1C (IN HOUSE) 2017-03-23 A1C IN HOUSE 5.5 4.3 - 5.6 % Previous A1c 7.9 Lot [id number] Exp date PROCEDURES Procedure Date Ordered Result Body Site GLYCATED HEMOGLOBIN TEST Mar 23, 2017 INSTRUCTIONS MEDICATIONS ADMINISTERED No Known Medications MEDICAL (GENERAL) HISTORY Type Description Date Medical History Type II diabetic Medical History hypertension Medical History MRSA Medical History PCOS Medical History 3 slipped disk in back. Surgical History knee surgery Hospitalization History surgeries Hospitalization History [facility] Pt. unable to walk after waking up from a nap. 12/2015
--- OUTSIDE RECORDS SUMMARY | 2018-06-27 07:32 | XMS REPORT ---
Author ARABELLA Elliott [facility] eClinicalWorks Address Unknown Phone Unavailable Care Team Providers Care [employer] Erector Name Role Phone ARABELLA DIXON CP Unavailable Allergies, Adverse Reactions, Alerts Substance [...] Diabetes type 2, controlled E11.9 Active Assessment Diabetes type 2, controlled E11.9 Active Medications Medication Code System Code Instructions Start Date End Date Status Dosage Diflucan [facility] [address]-93 150 MG Orally Once a day Jun 27, 2015 1 tablet Tizanidine HCl [facility] 05765617146 4 MG Orally every 8 hrs 1 capsule as needed [place] [facility] [address]-64 5-325 MG 3 times a day September 23, 2014 1 tablet as needed Ibuprofen [facility] [address]-34 200 MG Orally every 6 hrs 1 tablet as needed Victoza [facility] [address]-88 18 MG/3ML Subcutaneous Once a day 0.2 ml GlipiZIDE [facility] [address]-82 5 MG Orally 2 times a day Aug 01, 2015 1 tablet Amoxicillin [facility] [address]-49 500 MG Orally Twice a day Aug 01, 2015 Aug 11, 2015 2 capsules Dexedrine [facility] [address]-84 10 MG Orally 3 times per day. October 04, 2014 2 tabs Diflucan [facility] [address]-20 150 MG Orally Once a day Aug 01, 2015 1 tablet Lisinopril [facility] 90936835866 10 MG Orally Once a day 1 tablet [place] 0 32 mm Mar 15, 2014 1 1 time per day use as directed with Victoza Procedures Procedure Coding System Code Date Office Visit, Est Pt., Level 3 CPT-4 79655 Aug 01, 2015 GLYCATED HEMOGLOBIN TEST CPT-4 99532 Aug 01, 2015 Vital Signs Date/Time: Aug 01, 2015 Temperature 96.6 F Weight 286.5 lbs Height 69 in BMI 42.30 Index Blood Pressure Diastolic 96 mmHg Blood Pressure Systolic 162 mmHg Cardiac Monitoring Heart Rate 92 bpm Results Name Result Date Reference Range Unit Abnormality Flag A1C (IN HOUSE) ----A1C IN HOUSE 10.3 20150801 4.3 - 5.6 % ----Previous A1c 7.7 [id number] ----Lot [id number] ----Exp date [id number] Summary Purpose eClinicalWorks Submission
--- OUTSIDE RECORDS SUMMARY | 2018-06-27 07:32 | XMS REPORT ---
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 Role Phone ARABELLA DIXON Unavailable PROBLEMS Type Condition ICD9-CM Code SXM88-DJ Code Onset Dates Condition Status SNOMED Code Problem High risk medications (not anticoagulants) long-term use Z79.899 Active 018114089 Problem Mood disorder F39 Active 09576391 Problem Anxiety F41.9 Active 28332855 Problem Diabetes type 2, controlled E11.9 Active 31413396 Problem Obstructive sleep apnea syndrome G47.33 Active 93573727 Problem Migraine without aura and without status migrainosus, not intractable G43.009 Active 902465917 Problem Morbid obesity due to excess calories E66.01 Active [id number] ALLERGIES No Information ENCOUNTERS Encounter Location Date Diagnosis [place] [id number] [place] [address] 24910- 3069 Sep, Diabetes type 2, controlled E11.9 [facility] [id number] [place] [address] 43685- 5616 Sep, [facility] [id number] [place] [address] 01097- 5683 Aug, Diabetes type 2, controlled E11.9 and Morbid obesity due to excess calories E66.01 [facility] [address], [place] [address] 0386 Jul, Anxiety F41.9 [facility] [id number] [place] [address] 70670- 7865 Jul, [facility] [id number] [place] [address] 05115- 0214 Jul, Anxiety F41.9 ; Mood disorder F39 ; Morbid obesity due to excess calories E66.01 and Diabetes type 2, controlled E11.9 [facility] [address] [address] 0976 Jun, Anxiety F41.9 [facility] [id number] [place] [address] 44029- 8249 Jun, Anxiety F41.9 ; Morbid obesity due to excess calories E66.01 and Diabetes type 2, controlled E11.9 [place] [id number] [address] 7887 May, Migraine without aura and without status migrainosus, not intractable G43.009 ; Diabetes type 2, controlled E11.9 and Morbid obesity due to excess calories E66.01 [place] [id number] [place] [address] 77514- 5750 Apr, Migraine without aura and without status migrainosus, not intractable G43.009 ; Diabetes type 2, controlled E11.9 and Morbid obesity due to excess calories E66.01 [place] [address], [place] [address] 7407 Apr, Diabetes type 2, controlled E11.9 and Morbid obesity due to excess calories E66.01 [place] [id number] [place] [address] 30398- 5844 Mar, Diabetes type 2, controlled E11.9 and Morbid obesity due to excess calories E66.01 [place] [address], [place] [address]- 8384 Mar, Diabetes type 2, controlled E11.9 and Mood disorder F39 [facility] [address], [place] [address]- 9630 Feb, Morbid obesity due to excess calories E66.01 and Diabetes type 2, controlled E11.9 [facility] [address], [place] [address]- 0297 Jan, Diabetes type 2, controlled E11.9 and Morbid obesity due to excess calories E66.01 [place] [id number] [address]- 1436 Dec, Diabetes type 2, controlled E11.9 and Morbid obesity due to excess calories E66.01 [facility] [address] [place] [address] 89944- 3180 Dec, Morbid obesity due to excess calories E66.01 [facility] [id number] [place] [address] 33430- 0925 November, Diabetes type 2, controlled E11.9 and Morbid obesity due to excess calories E66.01 [place] [address] [place] [address] 93811- 6993 November, Anxiety F41.9 and Injury of right foot, initial encounter S99.921A [facility] [id number] [place] [address] 58921- 6892 November, Diabetes type 2, controlled E11.9 and Morbid obesity due to excess calories E66.01 [place] [address] [place] [address] 92789- 4534 November, [facility] [address] [place] [address] 11253- 9287 Oct, [facility] [id number] [place] [address] 73677- 0569 Oct, Family history of brain aneurysm Z82.49 and Migraine without aura and without status migrainosus, not intractable G43.009 [facility] [address], [place] [address]- 2313 Oct, Diabetes type 2, controlled E11.9 [facility] [address] [place] [address] 51491- 1327 Oct, Morbid obesity due to excess calories E66.01 ; Family history of brain aneurysm Z82.49 and Migraine without aura and without status migrainosus, not intractable G43.009 [facility] [address], [place] [address]- 7212 Oct, Diabetes type 2, controlled E11.9 and Morbid obesity due to excess calories E66.01 [facility] [address], [place] [address]- 8269 Sep, [facility] [address] [place] [address] 51897- 5998 Sep, Diabetes type 2, controlled E11.9 [facility] [id number] [place] [address] 93015- 4100 Sep, Morbid obesity due to excess calories E66.01 [facility] [address] [place] [address] 15547- 9930 Aug, Exposure to hepatitis C Z20.5 [facility] [id number] [place] [address] 82775- 4682 Aug, Diabetes type 2, controlled E11.9 [facility] [id number] [place] [address] 04568- 1410 Jul, Exposure to hepatitis C Z20.5 [facility] [address] [place] [address] 57152- 7469 Jul, Exposure to hepatitis C Z20.5 [facility] [address] [place] [address] 47295- 7645 Jul, [facility] [address], [place] [address]- 3279 Jul, Diabetes type 2, controlled E11.9 [facility] [address] [address]- 4621 Jun, [facility] [address] [place] [address] 15631- 3082 Jun, Diabetes type 2, controlled E11.9 ; Pain of left foot M79.672 and Pain in right foot M79.671 [facility] [address], [place] [address]- 3136 May, [facility] [id number] [address]- 2712 Apr, [facility] [id number] [place] [address] 98881- 9066 Apr, [facility] [id number] [address]- 3807 Mar, [facility] [id number] [place] [address] 954802- 2148 Feb, [facility] [id number] [place] [address] 62491- 0209 Feb, [facility] [id number] [place] [address] 46687- 4904 Jan, [facility] [id number] [place] [address] 60453- 0796 Dec, Diabetes type 2, controlled E11.9 ; 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 and Abscess, abdomen K65.1 [facility] [id number] [place] [address] 40205- 6119 Dec, Shoulder pain, right 719.41 [facility] [id number] [place] [address] 88586- 5581 November, [facility] [id number] 8840 November, [facility] [id number], [place] [address]- 8161 Oct, [facility] [address], [place] [address]- 4802 Sep, [facility] [id number] [place] [address] 848550- 6312 Sep, [facility] [address], [place] [address]0467 Aug, [facility] [id number] [place] [address] 38739- 1107 Aug, 2015 [facility] [address], [place] [address]- 2765 17 Aug, 2015 Cellulitis, unspecified L03.90 ; Cutaneous abscess, unspecified L02.91 ; Diabetes type 2, controlled E11.9 ; Migraine G43.909 and Bilateral low back pain with sciatica, sciatica laterality unspecified M54.40 [facility] [id number] [place] [address] 82185 -4062 Aug, Abscess and cellulitis L03.90 [facility] [id number] [place] [address] 59189- 3161 Aug, [facility] [id number] [place] [address] 15551- 1991 Aug, [facility] [id number] [place] [address] 67320- 6602 Jul, [facility] [id number] [place] [address] 62568- 9868 Jul, Diabetes type 2, controlled E11.9 [facility] [id number] [place] [address] 77619- 6654 Jul, Diabetes type 2, controlled E11.9 [facility] [id number] [place] [address] 33175- 0939 Jun, Diabetes type 2, controlled E11.9 ; Bilateral low back pain with sciatica, sciatica laterality unspecified M54.40 and Morbid obesity, unspecified obesity type E66.01 [facility] [address], [place] [address]- 1681 Jun, [facility] [id number] [place] [address] 32560- 9117 May, [facility] [id number] [place] [address] 90394- 3959 Apr, [facility] [id number] [place] [address] 59453- 9132 Apr, [facility] [address], [place] [address]- 5650 Apr, [facility] [address] [address]- 7794 Mar, [facility] [address] [address]- 4344 Mar, [facility] [id number] [address]- 4938 Mar, [facility] [address], [place] [address]- 5616 Feb, [facility] [address], [place] [address]- 8884 Feb, [facility] [address] [address]- 6366 Feb, [facility] [address], [place] [address]- 9865 Feb, [facility] [address] [address]- 9024 Feb, Diabetes mellitus without mention of complication, type II or unspecified type, not stated as uncontrolled 250.00 [facility] [id number] [address]- 3646 Feb, [facility] [address], [place] [address]- 6532 Feb, [facility] [id number] [address]- 6005 Jan, Diabetes mellitus without mention of complication, type II or unspecified type, not stated as uncontrolled 250.00 and Cellulitis and abscess 682.9 [facility] [id number] [address]- 5973 Jan, [facility] [address], [place] [address]- 9450 Jan, [facility] [address] [id number] [place] [address]- 8014 Jan, [facility] [place] [facility] [address] [id number] [place] [address]- 0950 Dec, [facility] [place] [facility] [address] [id number] [place] [address]- 7170 Dec, [facility] [place] [facility] [address] [id number] [place] [address]- 5300 Dec, [facility] [place] [facility] [address] [id number] [place] [address]- 4748 November, [facility] [address] [id number] [place] [address]- 2597 Oct, Shoulder pain, right 719.41 [facility] [address] [id number] [place] [address]- 8374 Oct, [facility] [address] [id number] [place] [address]- 2800 Oct, [facility] [place] [facility] [address] [id number] [place] [address]- 5686 Sep, [facility] [address] [id number] [place] [address]- 6985 Sep, [facility] [place] [facility] [address] [id number] [place] [address]- 7519 Sep, [facility] [place] [facility] [address] [id number] [place] [address]- 8679 Sep, [facility] [place] [facility] [address] [id number] [place] [address]- 1826 Sep, [facility] [place] [facility] [address] [id number] [place] [address]- 2561 Sep, [facility] [place] [facility] [address] [id number] [place] [address]- 3089 Sep, [facility] [place] [facility] [address] [id number] [place] [address]- 6242 14 Sep, 2014 [facility] [place] [facility] [address] [id number] [place] [address]- 1272 24 Aug, 2014 [facility] [place] [facility] [address] [id number] [place] [address]- 2752 24 Aug, 2014 [facility] [place] [facility] [address] [id number] [place] [address]- 5349 Aug, [facility] [place] [facility] [address] [id number] [place] [address]- 7385 Aug, [facility] [place] [facility] [address] [id number] [place] [address]- 9527 Jul, [facility] [place] [facility] [address] [id number] [place] [address]- 3608 Jul, [facility] [place] [facility] [address] [id number] [place] [address]- 3177 Jul, [facility] [place] [facility] [address] [id number] [place] [address]- 3521 Jul, [facility] [place] [facility] [address] [id number] [place] [address]- 3773 Jul, [facility] [place] [facility] [address] [id number] [place] [address]- 5850 Jul, [facility] [place] [facility] [address] [id number] [place] [address]- 1757 Jun, [facility] [place] [facility] [address] [id number] [place] [address]- 8094 Jun, [facility] [place] [facility] [address] [id number] [place] [address]- 0445 Jun, [facility] [place] [facility] [address] [id number] [place] 4484 Jun, [facility] [place] [facility] [address] [id number] [place] [address]- 8865 18 Jun, 2014 [facility] [place] [facility] [address] [id number] [place] [address]- 2137 18 Jun, 2014 [facility] [place] [facility] [address] [id number] [place] [address]- 6903 15 Jun, 2014 [facility] [place] [facility] [address] [id number] [place] [address]- 7285 Jun, [facility] [place] [facility] [address] [id number] [place] [address]- 3845 May, [facility] [place] [facility] [address] [id number] [place] [address]- 6308 May, [facility] [place] [facility] [address] [id number] [place] [address]- 5140 May, [facility] [place] [facility] [address] [id number] [place] [address]- 5163 May, [facility] [place] [facility] [address] [id number] [place] [address]- 2383 May, [facility] [place] [facility] [address] [id number] [place] [address]- 1016 May, [facility] [place] [facility] [address] [id number] [place] [address]- 8329 Apr, [facility] [place] [facility] [address] [id number] [place] [address]- 5912 Apr, [facility] [place] [facility] [address] [id number] [address]- 7184 20 Apr, 2014 [facility] [place] [facility] [address] [id number] [place] [address]- 5269 Apr, [facility] [place] [facility] [address] [id number] [address]- 1553 17 Apr, 2014 [facility] [place] [facility] [address] [id number] [address]- 1191 13 Apr, 2014 [facility] [place] [facility] [address] [id number] [place] [address]- 9989 Apr, [facility] [place] [facility] [address] [id number] [place] [address]- 6546 Mar, [facility] [place] [facility] [address] [id number] [place] [address]- 0168 Mar, [facility] [place] [facility] [address] [id number] [place] [address]- 4646 Mar, [facility] [place] [facility] [address] [id number] [place] [address]- 0121 Mar, [facility] [place] [facility] [address] [id number] [place] [address]- 7999 Feb, [facility] [place] [facility] [address] [id number] [place] [address]- 5437 Feb, [facility] [place] [facility] [address] [id number] [place] [address]- 5753 Feb, [facility] [place] [facility] [address] [id number] [place] [address]- 3454 Feb, [facility] [place] [facility] [address] [id number] [place] [address]- 6417 Feb, [facility] [place] [facility] [address] [id number] [place] [address]- 2105 Feb, [facility] [place] [facility] [address] [id number] [place] [address]- 5807 Jan, [facility] [place] [facility] [address] [id number] [place] [address]- 7062 Jan, [facility] [place] [facility] [address] [id number] [place] [address]- 9439 Jan, [facility] [place] [facility] [address] [id number] [place] [address]- 6243 Jan, [facility] [place] [facility] [address] [id number] [place] [address]- 5995 Jan, [facility] [place] [facility] [address] [id number] [place] [address]- 4937 Jan, [facility] [place] [facility] [address] [id number] [place] [address]- 4111 Jan, [facility] [place] [facility] [address] [id number] [place] [address]- 2685 Jan, [facility] [place] [facility] [address] [id number] [place] [address]- 4891 Jan, [facility] [place] [facility] [address] [id number] [place] [address]- 0906 Jan, [facility] [place] [facility] [address] [id number] [place] [address]- 2245 Dec, [facility] [place] [facility] [address] [id number] [place] [address]- 3593 Dec, [facility] [place] [facility] [address] [id number] [place] [address]- 5790 Dec, [facility] [place] [facility] [address] [id number] [place] [address]- 9855 Dec, [facility] [place] [facility] [address] [id number] [place] [address]- 6930 November, [facility] [place] [facility] [address] [id number] [place] [address]- 7531 November, [facility] [place] [facility] [address] [id number] [place] [address]- 2454 November, [facility] [place] [facility] [address] [id number] [place] [address]- 2051 November, [facility] [place] [facility] [address] [id number] [place] [address]- 3873 Oct, [facility] [place] [facility] [address] [id number] [place] [address]- 4922 Oct, [facility] [place] [facility] [address] [id number] [place] [address]- 2293 14 Oct, 2013 [facility] [place] [facility] [address] [id number] [place] [address]- 7559 14 Oct, 2013 [facility] [place] [facility] [address] [id number] [place] [address]- 7174 Oct, [facility] [place] [facility] [address] [id number] [place] [address]- 7948 Oct, [facility] [place] [facility] [address] [id number] [place] [address]- 3183 Oct, [facility] [place] [facility] [address] [id number] [place] [address]- 0922 Oct, [facility] [place] [facility] [address] [id number] [place] [address]- 6593 Sep, [facility] [place] [facility] [address] [id number] [place] [address]- 7110 Sep, [facility] [place] [facility] [address] [id number] [place] [address]- 2019 Sep, [facility] [place] [facility] [address] [id number] [place] [address]- 9464 Sep, [facility] [place] [facility] [address] [facility] [id number] [place] [address]- 2701 Sep, [facility] [place] [facility] [address] [id number] [place] [address]- 9458 Sep, [facility] [place] [facility] [address] [id number] [place] [address]- 3589 Aug, [facility] [place] [facility] [address] [id number] [place] [address]- 5102 Aug, [facility] [place] [facility] [address] [id number] [place] [address]- 7289 Jul, [facility] [place] [facility] [address] [id number] [place] [address]- 6222 Jul, [facility] [place] [facility] [address] [id number] [place] [address] Jul, [facility] [place] [facility] [address] [id number] [place] [address] Jul, [facility] [place] [facility] [address] [id number] [place] [address] Jul, [facility] [place] [facility] [address] [id number] [place] [address] Jul, [facility] [place] [facility] [address] [id number] [place] [address] Jul, [facility] [place] [facility] [address] [id number] [place] [address] Jul, [facility] [place] [facility] [address] [id number] [place] [address] Jun, [facility] [place] [facility] [address] [id number] [address] Jun, [facility] [place] [facility] [address] [id number] [place] [address] May, [facility] [place] [facility] [address] [id number], [place] [address] May, [facility] [place] [facility] [address] [id number], [place] [address] Apr, [facility] [place] [facility] [address] [id number], [place] [address] Apr, [facility] [place] [facility] [address] [id number] [place] [address] Apr, [facility] [place] [facility] [address] [id number], [place] [address] Apr, [facility] [place] [facility] [address] [id number], [place] [address] Apr, [facility] [place] [facility] [address] [id number], [place] [address] 29 Apr, 2013 [facility] [place] [facility] [address] [id number] [place] [address] Apr, [facility] [place] [facility] [address] [id number] [place] [address] Apr, [facility] [place] [facility] [address] [id number] [place] [address] Apr, [facility] [place] [facility] [address] [id number] [place] [address] Apr, [facility] [place] [facility] [address] [id number] [place] [address] Apr, [facility] [place] [facility] [address] [id number] [place] [address] Apr, [facility] [place] [facility] [address] [id number] [place] [address] Apr, [facility] [place] [facility] [address] [id number] [place] [address] 18 Apr, 2013 [facility] [place] [facility] [address] [id number] [place] [address] 02 Apr, 2013 [facility] [place] [facility] [address] [id number] [place] [address] 27 Mar, 2012 [facility] [place] [facility] [address] [id number], [place] [address] 27 Sep, 2012 [facility] [place] [facility] [address] [id number][place] [address] 26 Sep, 2012 [facility] [place] [facility] [address] [id number] [place] [address] 25 Sep, 2012 [facility] [place] [facility] [address] [id number] [place] [address] 16 Sep, 2012 [facility] [place] [facility] [address] [facility] [id number] [place] [address] 03 Sep, 2012 [facility] [place] [facility] [address] [id number] [place] [address] Jan, [facility] [place] [facility] [address] [id number] [place] [address] Jan, [facility] [place] [facility] [address] [id number] [place] [address] Jan, [facility] [place] [facility] [address] [id number] [place] [address] Dec, [facility] [place] [facility] [address] [id number] [place] [address] Oct, [facility] [place] [facility] [address] [id number] [place] [address] May, [facility] [place] [facility] [address] [id number] [place] [address] May, [facility] [place] [facility] [address] [id number] [place] [address] Jun, [facility] [place] [facility] [address] [id number] [place] [address] May, [facility] [place] [facility] [address] [id number] [place] [address] May, [facility] [place] [facility] [address] [id number] [place] [address] May, [facility] [place] [facility] [address] [id number] [place] [address] 14 Apr, 2011 [facility] [place] [facility] [address] [id number] [place] [address] Apr, [facility] [place] [facility] [address] [id number] [place] [address] Feb, [facility] [place] [facility] [address] [id number] [place] [address] Feb, [facility] [place] [facility] [address] [id number] [place] [address] 10 Dec, 2010 [facility] [place] [facility] [address] [id number] [place] [address] 12 Oct, 2010 [facility] [place] [facility] [address] [id number] [place] [address] 19 Sep, 2010 [facility] [place] [facility] [address] [id number] [place] [address] 10 Sep, 2010 [facility] [place] [facility] [address] [id number] [place] [address] 20 Jul, 2010 [facility] [place] [facility] [address] [id number] [place] [address] 11 Jul, 2010 [facility] [place] [facility] [address] [id number] [place] [address] 28 Jun, 2010 [facility] [place] [facility] [address] [id number] [place] [address] 23 Jun, 2010 [facility] [place] [facility] [address] [id number] [place] [address] 14 Jun, 2010 [facility] [place] [facility] [address] [id number] [place] [address] 14 Jun, 2010 [facility] [place] [facility] [address] [id number] [place] [address] 08 Jun, 2010 [facility] [place] [facility] [address] [id number] [place] [address] 30 May, 2010 [facility] [place] [facility] [address] [id number] [address] 23 May, 2010 [facility] [place] [facility] [address] [id number] [place] [address] 17 May, 2010 [facility] [place] [facility] [address] [id number] [place] [address] 17 May, 2010 [facility] [place] [facility] [address] [id number] [place] [address] 17 May, 2010 [facility] [place] [facility] [address] [address] 17 May, 2010 [facility] [id number] [address] Apr, [facility] [id number] [address] Apr, [facility] [id number] [address] Mar, [facility] [address] [address] Feb, [facility] [id number] [place] [address] Sep, [facility] [id number] [address] Sep, [facility] [address] [address] Aug, [facility] [address] [address] Jun, [facility] [address] [address] Jun, [facility] [address] [address] May, [facility] [address] [address] Dec, [facility] [id number] [address] Sep, IMMUNIZATIONS No Known Immunizations SOCIAL HISTORY Never Assessed REASON FOR VISIT Controlled Refill Request PLAN OF CARE VITAL SIGNS MEDICATIONS Medication Instructions Dosage Frequency Start Date End Date Duration Status Manquin 5-325 MG Orally 4 times a day 1 tablet as needed 6h Jan, 28 days Active Dextroamphetamine Sulfate 10 MG [...]
--- OUTSIDE RECORDS SUMMARY | 2018-06-27 07:32 | XMS REPORT ---
Author Author ARABELLA DIXON [facility] Address [address] [place] [address] Care Team Providers Care Packer Dried Beef Name Role Phone ARABELLA DIXON Unavailable PROBLEMS Type Condition ICD9-CM Code RPZ25-CQ Code Onset Dates Condition Status SNOMED Code Problem High risk medications (not anticoagulants) long-term use Z79.899 Active 567228898 Problem Mood disorder F39 Active 79757239 Problem Anxiety F41.9 Active 90145865 Problem Diabetes type 2, controlled E11.9 Active 77768446 Problem Obstructive sleep apnea syndrome G47.33 Active 80467342 Problem Migraine without aura and without status migrainosus, not intractable G43.009 Active 260803128 Problem Morbid obesity due to excess calories E66.01 Active 967610051 ALLERGIES Substance Reaction Event Type Date Status Wellbutrin Unknown Drug Allergy November, Active Effexor increases depression -JCriserRN Drug Allergy November, Active SOCIAL HISTORY Never Assessed PLAN OF CARE VITAL SIGNS Height 69 in 2016-11-28 Weight 296.3 lbs 2016-11-28 Temperature 98.1 degrees Fahrenheit 2016-11-28 Heart Rate 82 bpm 2016-11-28 Respiratory Rate 22 2016-11-28 BMI 43.75 kg/m2 2016-11-28 Blood pressure systolic 134 mmHg 2016-11-28 Blood pressure diastolic 80 mmHg 2016-11-28 MEDICATIONS Medication Instructions Dosage Frequency Start Date End Date Duration Status GlipiZIDE 5 MG Orally 2 times a day 1 tablet 12h 30 Active BusPIRone HCl 10 mg Orally Three times a day 1 tablet 8h November, Active Actos 15 MG Orally Once a day 1 tablet 24h Active Lisinopril 10 MG Orally Once a day 1 tablet 24h 30 Active Ibuprofen 200 MG Orally every 6 hrs 1 tablet as needed 6h Active Lyrica 50 MG Orally 2 times a day 1 capsule 12h Active Chantix 1 MG Orally Twice a day 1 tablet 12h Oct, Apr, 30 day(s) Active Dextroamphetamine Sulfate 10 MG Orally Three times a day 2 tablets 8h November, 28 days Active [place] 5-325 MG Orally 4 times a day 1 tablet as needed 6h November, 28 days Active RESULTS No Results PROCEDURES Procedure Date Ordered Result Body Site X-RAY EXAM OF FOOT November 28, 2016 IMMUNIZATIONS No Known Immunizations MEDICAL (GENERAL) HISTORY Type Description Date Medical History Type II diabetic Medical History hypertension Medical History MRSA Medical History PCOS Medical History 3 slipped disk in back. Surgical History knee surgery Hospitalization History surgeries Hospitalization History [facility] Pt[facility] unable to walk after waking up from a nap. 12/2015
--- OUTSIDE RECORDS SUMMARY | 2018-06-27 07:32 | XMS REPORT ---
Author ARABELLA Elliott Organization [employer] Address Unknown Phone Unavailable Care Team Providers Care Legal Activity Adjudicator Name Role Phone ARABELLA DIXON CP Unavailable [...] Instructions Start Date End Date Status Dosage Clarkia [facility] [address]-85 5-325 MG Orally 3 times a day September 23, 2014 1 tablet as needed Dexedrine [facility] [address]-78 10 MG Orally 3 times per day. October 04, 2014 2 tabs Results No Known Results Summary Purpose [employer] Submission
--- OUTSIDE RECORDS SUMMARY | 2018-06-27 07:32 | XMS REPORT ---
Author ARABELLA Elliott Organization [employer] Address Unknown Phone Unavailable Care Team Providers Care [place] Worker Name Role Phone ARABELLA DIXON CP Unavailable Allergies No Known Allergies Problems Problem Type Condition Code Onset Dates Condition Status Problem Diabetes mellitus without mention of complication, type II or unspecified type, not stated as uncontrolled 250.00 Active Problem Need for prophylactic vaccination and inoculation, Influenza V04.81 Active Medications Medication Code System Code Instructions Start Date End Date Status Dosage Dexedrine [facility] [address]-20 10 MG Orally 3 times per day October 04, 2014 2 tabs Results No Known Results Summary Purpose [employer] Submission
--- OUTSIDE RECORDS SUMMARY | 2018-06-27 07:32 | XMS REPORT ---
Author ARABELLA Elliott Organization [employer] Address Unknown Phone Unavailable Care Team Providers Care Bottom Painter Name Role Phone ARABELLA DIXON CP Unavailable Allergies No Known Allergies Problems Problem Type Condition Code Onset Dates Condition Status Problem Diabetes mellitus without mention of complication, type II or unspecified type, not stated as uncontrolled 250.00 Active Problem Need for prophylactic vaccination and inoculation, Influenza V04.81 Active Medications Medication Code System Code Instructions Start Date End Date Status Dosage Surprise [facility] [address]-64 5-325 MG 3 times a day September 23, 2014 1 tablet as needed Erythromycin [facility] [address]-19 5 MG/GM Ophthalmic Twice a day Jun 13, 2015 1 application Results No Known Results Summary Purpose [employer] Submission
--- OUTSIDE RECORDS SUMMARY | 2018-06-27 07:32 | XMS REPORT ---
Author ARABELLA Elliott Organization [employer] Address Unknown Phone Unavailable Care Team Providers Care Tie Fastener Name Role Phone ARABELLA DIXON CP Unavailable [...] End Date Status Dosage Diflucan [facility] [address]-02 150 MG Orally Once a day Mar 09, 2015 1 tablet Results No Known Results Summary Purpose [employer] Submission
--- OUTSIDE RECORDS SUMMARY | 2018-06-27 07:33 | XMS REPORT ---
Author Author ARABELLA DIXON Organization [facility] Address [address] [place] [address] Care Team Providers Care Cable Installation Manager Name Role Phone ARABELLA DIXON Unavailable PROBLEMS Type Condition ICD9-CM Code [id number]-IR Code Onset Dates Condition Status SNOMED Code Problem High risk medications (not anticoagulants) long-term use Z79.899 Active 044935210 Problem Mood disorder F39 Active 83522893 Problem Anxiety F41.9 Active 97330977 Problem Diabetes type 2, controlled E11.9 Active 53512356 Problem Obstructive sleep apnea syndrome G47.33 Active 91328262 Problem Migraine without aura and without status migrainosus, not intractable G43.009 Active 560176094 Problem Morbid obesity due to excess calories E66.01 Active 946454369 ALLERGIES No Information ENCOUNTERS Encounter Location Date Diagnosis [place] [address] [address] Dec, [facility] [address] [address]- [address] Oct, Diabetes type 2, controlled E11.9 [facility] [address] [place] [id number] [place] [address] 14448- 9722 Sep, Diabetes type 2, controlled E11.9 [facility] [address] [id number] [place] [address] 02060- 9445 Sep, [facility] [address] [address]- [address] Aug, Diabetes type 2, controlled E11.9 and Morbid obesity due to excess calories E66.01 [facility] [address] [address]- 9743 Jul, Anxiety F41.9 [facility] [address] [place] [address]- [address] Jul, [facility] [id number] [address] Jul, Anxiety F41.9 ; Mood disorder F39 ; Morbid obesity due to excess calories E66.01 and Diabetes type 2, controlled E11.9 [place] [address], [place] [address] Jun, Anxiety F41.9 [place] [address] [id number] [place] [address] 77580- 7702 Jun, Anxiety F41.9 ; Morbid obesity due to excess calories E66.01 and Diabetes type 2, controlled E11.9 [place] [address] [place] [address] [id number] [address] May, Migraine without aura and without status migrainosus, not intractable G43.009 ; Diabetes type 2, controlled E11.9 and Morbid obesity due to excess calories E66.01 [place] [address] [address] Apr, Migraine without aura and without status migrainosus, not intractable G43.009 ; Diabetes type 2, controlled E11.9 and Morbid obesity due to excess calories E66.01 [place] [address], [place] [address] 47[address] Apr, Diabetes type 2, controlled E11.9 and Morbid obesity due to excess calories E66.01 [place] [address] [address] 6024 Mar, Diabetes type 2, controlled E11.9 and Morbid obesity due to excess calories E66.01 [place] [address] [place] [id number] [place] [address] 15270- 5611 Mar, Diabetes type 2, controlled E11.9 and Mood disorder F39 [facility] [address] [address] 77[address] Feb, Morbid obesity due to excess calories E66.01 and Diabetes type 2, controlled E11.9 [facility] [id number] [place] [address] 64805- 3664 Jan, Diabetes type 2, controlled E11.9 and Morbid obesity due to excess calories E66.01 [facility] [id number] [place] [address] 67829- 7000 Dec, Diabetes type 2, controlled E11.9 and Morbid obesity due to excess calories E66.01 [facility] [address] [place] [id number] [place] [address] 98120- 4302 Dec, Morbid obesity due to excess calories E66.01 [place] [address] [address] [id number] [place] [address] 29204- 6636 November, Diabetes type 2, controlled E11.9 and Morbid obesity due to excess calories E66.01 [place] [address] [address] [place] [address] 54566- 6489 November, Anxiety F41.9 and Injury of right foot, initial encounter S99.921A [place] [address] [id number] [place] [address] 51785- 2688 November, Diabetes type 2, controlled E11.9 and Morbid obesity due to excess calories E66.01 [place] [address] [place] [address] 71792- 8809 November, [place] [address] [place] [id number] [place] [address] 63579- 5378 Oct, [facility] [address] [place] [id number] [place] [address] 86618- 2147 Oct, Family history of brain aneurysm Z82.49 and Migraine without aura and without status migrainosus, not intractable G43.009 [facility] [address] [place] [address] 25859- 9726 Oct, Diabetes type 2, controlled E11.9 [facility] [address] [place] [address] [id number] [place] [address] 48896- 3350 Oct, Morbid obesity due to excess calories E66.01 ; Family history of brain aneurysm Z82.49 and Migraine without aura and without status migrainosus, not intractable G43.009 [facility] [address] [place] [address] [place] [address] 23680- 0887 Oct, Diabetes type 2, controlled E11.9 and Morbid obesity due to excess calories E66.01 [facility] [address] [place] [address] [place] [address] 36902- 7305 Sep, [facility] [address] [place] [address] [place] [address] 75568- 7487 Sep, Diabetes type 2, controlled E11.9 [place] [address] [place] [address] [place] [address] 09354- 2820 Sep, Morbid obesity due to excess calories E66.01 [place] [address] [place] [address] [place] [address] 69134- 2051 Aug, Exposure to hepatitis C Z20.5 [place] [address] [place] [address] [place] [address] 83531- 5699 Aug, Diabetes type 2, controlled E11.9 [place] [address] [place] [address] [place] [address] 72638- 2617 Jul, Exposure to hepatitis C Z20.5 [place] [address] [place] [address] [address]- 4662 Jul, Exposure to hepatitis C Z20.5 [facility] [address] [place] [address] [address]- 2037 Jul, [facility] [address] [place] [address] [place] [address] 04186- 6535 Jul, Diabetes type 2, controlled E11.9 [facility] [address] [place] [address] 94333- 5411 Jun, [place] [address] [place] [address] [place] [address] 33546- 2562 Jun, Diabetes type 2, controlled E11.9 ; Pain of left foot M79.672 and Pain in right foot M79.671 [facility] [address], [place] [address]- 2104 May, [facility] [address], [place] [address]- 5390 Apr, [facility] [address] [place] [address] [id number] [place] [address] 36467- 0600 Apr, [facility] [address] [place] [address] [id number] [place] [address] 56062- 1021 Mar, [facility] [address] [place] [address] [id number] [place] [address] 68934- 6935 Feb, [facility] [address] [place] [address] [id number] [place] [address] 97864- 3298 Feb, [facility] [address] [place] [address] [id number] [place] [address] 01969- 5075 Jan, [facility] [address] [place] [address] [address] [place] [address] 42920- 4826 Dec, Diabetes type 2, controlled E11.9 ; 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 and Abscess, abdomen K65.1 [facility] [address], [place] [address]- 5986 Dec, Shoulder pain, right 719.41 [facility] [address] [place] [id number] [place] [address] 53055- 2058 November, [facility] [address], [place] [address]- 0500 November, [facility] [address] [place] [id number] [place] [address] 82611- 7650 Oct, [facility] [address], [place] [address]- 3086 Sep, [facility] [address] [place] [id number] [place] [address] 10072- 8418 Sep, [facility] [address], [place] [address]94 Aug, [facility] [address] [place] [id number] [place] [address] 20861- 7631 Aug, [facility] [address] [place] [address] 71858- 8812 Aug, Cellulitis, unspecified L03.90 ; Cutaneous abscess, unspecified L02.91 ; Diabetes type 2, controlled E11.9 ; Migraine G43.909 and Bilateral low back pain with sciatica, sciatica laterality unspecified M54.40 [facility] [id number] [place] [address] 13700 -8637 Aug, Abscess and cellulitis L03.90 [place] [address] [place] [address] 95619- 3893 Aug, [facility] [address] [place] [id number] [place] [address] 36159- 8745 Aug, [facility] [address] [place] [address] 61639- 4562 Jul, [facility] [address] [place] [address] 14083- 5183 Jul, Diabetes type 2, controlled E11.9 [facility] [address] [place] [address] 49585- 7129 Jul, Diabetes type 2, controlled E11.9 [facility] [address] [place] [address] 01442- 3033 Jun, Diabetes type 2, controlled E11.9 ; Bilateral low back pain with sciatica, sciatica laterality unspecified M54.40 and Morbid obesity, unspecified obesity type E66.01 [facility] [address], [place] [address]- 5146 Jun, [facility] [address] [place] [id number] [address]- 2490 May, [facility] [address] [facility] [id number] [address]- 6069 Apr, [facility] [address] [facility] [id number] 2028 Apr, [facility] [address] [facility] [id number] 1602 Apr, [facility] [address] [facility] [id number] [address]- 1720 Mar, [facility] [address] [place] [id number] 2684 Mar, [facility] [address] [place] [id number], [place] [address]- 3106 Mar, [facility] [address], [place] [address]- 7541 Feb, [facility] [address] [place] [id number], [place] [address]- 6119 Feb, [facility] [address], [place] [address]- 9142 Feb, [facility] [address] [place] [id number] [address]- 7266 Feb, [facility] [address] [place] [id number], [place] [address]- 2149 Feb, Diabetes mellitus without mention of complication, type II or unspecified type, not stated as uncontrolled 250.00 [facility] [address] [facility] [id number] [address]- 1343 Feb, [facility] [address] [place] [id number] 3022 Feb, [facility] [address] [place] [id number] 5092 Jan, Diabetes mellitus without mention of complication, type II or unspecified type, not stated as uncontrolled 250.00 and Cellulitis and abscess 682.9 [facility] [address], [place] [address]- 8509 Jan, [facility] [address] [facility] [id number], [place] [address]- 1831 Jan, [facility] [address], [place] [address]- 4936 Jan, [facility] [address] [facility] [id number] [place] [address] 75119- 4501 Dec, [facility] [address] [place] [id number] [place] [address] 89082- 9357 Dec, [facility] [address] [place] [id number] [place] [address] 74362- 2306 Dec, [facility] [address] [place] [id number] [place] [address] 00486- 7858 November, [facility] [address], [place] [address]- 1653 Oct, Shoulder pain, right 719.41 [facility] [address], [place] [address]- 8340 Oct, [facility] [address], [place] [address]- 1818 Oct, [facility] [address], [place] [address]- 4980 Sep, [facility] [address], [place] [address]- 4964 Sep, [facility] [address], [place] [address]- 3258 Sep, [facility] [address], [place] [address]- 5111 Sep, [facility] [address], [place] [address]- 5059 Sep, 2014 [facility] [place] [facility] [address] [id number] [place] [address]- 9362 24 Sep, 2014 [facility] [place] [facility] [address] [id number] [place] [address]- 3694 14 Sep, 2014 [facility] [place] [facility] [address] [id number] [place] [address]- 2237 14 Sep, 2014 [facility] [place] [facility] [address] [id number] [place] [address]- 3613 24 Aug, 2014 [facility] [place] [facility] [address] [id number] [place] [address]- 3967 24 Aug, 2014 [facility] [place] [facility] [address] [id number] [place] [address]- 2961 Aug, [facility] [place] [facility] [address] [id number] [place] [address]- 6369 Aug, [facility] [place] [facility] [address] [id number] [place] [address]- 5652 Jul, [facility] [place] [facility] [address] [id number] [place] [address]- 9344 Jul, [facility] [place] [facility] [address] [id number] [place] [address]- 1455 Jul, [facility] [place] [facility] [address] [id number], [place] [address]- 6887 Jul, [facility] [place] [facility] [address] [id number], [place] [address]- 1165 Jul, [facility] [place] [facility] [address] [id number] [place] [address]- 7385 Jul, [facility] [place] [facility] [address] [id number] [place] [address]- 2675 Jun, [facility] [place] [facility] [address] [id number] [place] [address]- 2292 Jun, [facility] [place] [facility] [address] [id number] [place] [address]- 9232 19 Jun, 2014 [facility] [place] [facility] [address] [id number] [place] [address]- 3416 19 Jun, 2014 [facility] [place] [facility] [address] [id number] [place] [address]- 0728 18 Jun, 2014 [facility] [place] [facility] [address] [id number] [place] [address]- 4913 18 Jun, 2014 [facility] [place] [facility] [address] [id number] [place] [address]- 0490 15 Jun, 2014 [facility] [place] [facility] [address] [id number] [place] [address]- 5883 Jun, [facility] [place] [facility] [address] [id number] [place] [address]- 9388 May, [facility] [place] [facility] [address] [id number] [place] [address]- 7048 May, [facility] [place] [facility] [address] [id number] [place] [address]- 1992 May, [facility] [place] [facility] [address] [id number] [place] [address]- 3948 May, [facility] [place] [facility] [address] [id number] [place] [address]- 3293 17 May, 2014 [facility] [place] [facility] [address] [id number] [place] [address]- 2456 May, [facility] [place] [facility] [address] [id number] [place] [address]- 8720 Apr, [facility] [place] [facility] [address] [id number] [place] [address]- 6424 Apr, [facility] [place] [facility] [address] [id number] [place] [address]- 5709 Apr, [facility] [place] [facility] [address] [id number] [place] [address]- 6755 Apr, [facility] [place] [facility] [address] [id number] [place] [address]- 0402 Apr, [facility] [place] [facility] [address] [id number] [place] [address]- 3582 Apr, [facility] [place] [facility] [address] [id number] [place] [address]- 6843 Apr, [facility] [place] [facility] [address] [id number] [place] [address]- 5955 Mar, [facility] [place] [facility] [address] [id number] [place] [address]- 4972 Mar, [facility] [place] [facility] [address] [id number] [place] [address]- 5866 Mar, [facility] [place] [facility] [address] [id number] [place] [address]- 3361 Mar, [facility] [place] [facility] [address] [id number] [place] [address]- 4870 Feb, [facility] [place] [facility] [address] [id number] [place] [address]- 8630 Feb, [facility] [place] [facility] [address] [id number] [place] [address]- 4578 Feb, [facility] [place] [facility] [address] [id number] [place] [address]- 2704 Feb, [facility] [place] [facility] [address] [id number] [place] [address]- 2641 Feb, [facility] [place] [facility] [address] [id number] [place] [address]- 8106 Feb, [facility] [place] [facility] [address] [id number] [place] [address]- 2431 Jan, [facility] [place] [facility] [address] [id number] [place] [address]- 5349 Jan, [facility] [place] [facility] [address] [id number] [place] [address]- 4798 Jan, [facility] [place] [facility] [address] [id number] [place] [address]- 5375 Jan, [facility] [place] [facility] [address] [id number] [place] [address]- 8109 Jan, [facility] [place] [facility] [address] [id number] [place] [address]- 5969 Jan, [facility] [place] [facility] [address] [id number] [place] [address]- 1505 Jan, [facility] [place] [facility] [address] [id number] [place] [address]- 7067 Jan, [facility] [place] [facility] [address] [id number] [place] [address]- 1537 Jan, [facility] [place] [facility] [address] [id number] [place] [address]- 4784 Jan, [facility] [place] [facility] [address] [id number] [place] [address]- 0963 Dec, [facility] [place] [facility] [address] [id number] [place] [address]- 5865 Dec, [facility] [place] [facility] [address] [id number] [place] [address]- 7323 Dec, [facility] [place] [facility] [address] [id number] [place] [address]- 7343 Dec, [facility] [place] [facility] [address] [id number] [place] [address]- 0224 November, [facility] [place] [facility] [address] [id number] [place] [address]- 8927 November, [facility] [place] [facility] [address] [id number] [place] [address]- 2403 November, [facility] [place] [facility] [address] [id number] [place] [address]- 0856 November, [facility] [place] [facility] [address] [id number] [place] [address]- 8263 Oct, [facility] [place] [facility] [address] [id number] [place] [address]- 4292 Oct, [facility] [place] [facility] [address] [id number] [place] [address]- 8944 Oct, [facility] [place] [facility] [address] [id number] [place] [address]- 2687 Oct, [facility] [place] [facility] [address] [id number] [place] [address]- 7190 Oct, [facility] [place] [facility] [address] [id number] [place] [address]- 5960 Oct, [facility] [place] [facility] [address] [id number] [place] [address]- 1379 Oct, [facility] [place] [facility] [address] [id number] [place] [address]- 3222 Oct, [facility] [place] [facility] [address] [id number] [place] [address]- 4444 Sep, [facility] [place] [facility] [address] [id number] [place] [address]- 6731 Sep, [facility] [place] [facility] [address] [id number] [place] [address]- 7250 Sep, [facility] [place] [facility] [address] [id number] [place] [address]- 6454 Sep, [facility] [place] [facility] [address] [id number] [place] [address]- 6983 Sep, [facility] [place] [facility] [address] [id number] [place] [address]- 5185 Sep, [facility] [place] [facility] [address] [id number] [place] [address]- 6268 Aug, [facility] [place] [facility] [address] [id number] [place] [address]- 4371 Aug, [facility] [place] [facility] [address] [id number] [place] [address]- 9955 Jul, [facility] [place] [facility] [address] [id number] [place] [address]- 7702 Jul, [facility] [place] [facility] [address] [facility] [id number] [place] [address]- 8484 Jul, [facility] [place] [facility] [address] [id number], [place] [address]- [address] Jul, [facility] [place] [facility] [address] [id number] [place] [address] Jul, [facility] [place] [facility] [address] [id number] [place] [address] Jul, [facility] [place] [facility] [address] [id number] [place] [address] Jul, [facility] [place] [facility] [address] [id number], [place] [address] Jul, [facility] [place] [facility] [address] [id number] [address] Jun, [facility] [place] [facility] [address] [id number] [place] [address] Jun, [facility] [place] [facility] [address] [id number] [address] May, [facility] [place] [facility] [address] [id number], [place] [address] May, [facility] [place] [facility] [address] [id number] [place] [address] Apr, [facility] [place] [facility] [address] [id number], [place] [address] Apr, [facility] [place] [facility] [address] [id number], [place] [address] Apr, [facility] [place] [facility] [address] [id number] [place] [address] 29 Apr, 2012 [facility] [address] [id number] [place] [address] Apr, 2012 [facility] [place] [facility] [address] [id number] [place] [address] 29 Apr, 2013 [facility] [address] [id number] [place] [address] Apr, [facility] [place] [facility] [address] [id number] [place] [address] Apr, [facility] [address] [id number] [place] [address]- [address] Apr, [facility] [address] [id number] [place] [address] Apr, [facility] [place] [facility] [address] [id number] [place] [address] Apr, [facility] [address] [id number] [place] [address]- [address] Apr, [facility] [place] [facility] [address] [id number] [place] [address] Apr, [facility] [address] [id number] [place] [address] Apr, [facility] [place] [facility] [address] [id number] [place] [address] Apr, [facility] [place] [facility] [address] [id number] [place] [address] Mar, [facility] [place] [facility] [address] [id number] [place] [address] 27 Mar, 2012 [facility] [place] [facility] [address] [id number] [place] [address] 26 Mar, 2012 [facility] [place] [facility] [address] [id number] [place] [address] 25 Mar, 2013 [facility] [place] [facility] [address] [id number] [place] [address] 16 Mar, 2013 [facility] [place] [facility] [address] [id number] [place] [address] Mar, [facility] [place] [facility] [address] [id number] [place] [address] Jan, [facility] [place] [facility] [address] [id number] [place] [address] Jan, [facility] [place] [facility] [address] [id number] [place] [address] Jan, [facility] [place] [facility] [address] [id number] [place] [address] Dec, [facility] [place] [facility] [address] [id number] [place] [address] Oct, [facility] [place] [facility] [address] [id number], [place] [address] May, [facility] [place] [facility] [address] [id number], [place] [address] May, [facility] [place] [facility] [address] [id number], [place] [address] Jun, [facility] [place] [facility] [address] [id number], [place] [address] May, [facility] [place] [facility] [address] [id number], [place] [address] May, [facility] [place] [facility] [address] [id number], [place] [address] 03 May, 2011 [facility] [place] [facility] [address] [id number], [place] [address] 14 Apr, 2011 [facility] [place] [facility] [address] [id number], [place] [address] 13 Apr, 2011 [facility] [place] [facility] [address] [id number], [place] [address] 17 Feb, 2011 [facility] [address] [id number] [place] [address] 16 Feb, 2011 [facility] [place] [facility] [address] [id number] [place] [address] 10 Dec, 2010 [facility] [place] [facility] [address] [id number] [place] [address]- 27[address] 12 Oct, 2010 [facility] [place] [facility] [address] [id number] [place] [address] 19 Sep, 2010 [facility] [place] [facility] [address] [id number] [place] [address] Sep, [facility] [place] [facility] [address] [id number] [place] [address] 20 Jul, 2010 [facility] [address] [facility] [id number] [place] [address] Jul, [facility] [place] [facility] [address] [id number] [place] [address] 28 Jun, 2010 [facility] [place] [facility] [address] [id number] [place] [address] 23 Jun, 2010 [facility] [place] [facility] [address] [facility] [id number] [place] [address] 14 Jun, 2010 [facility] [place] [facility] [address] [id number] [place] [address] 14 Jun, 2010 [facility] [place] [facility] [address] [id number] [place] [address] 08 Jun, 2010 [facility] [place] [facility] [address] [id number] [place] [address] 30 May, 2010 [facility] [place] [facility] [address] [id number] [place] [address] 23 May, 2010 [facility] [place] [facility] [address] [facility] [id number] [place] [address] 17 May, 2010 [facility] [place] [facility] [address] [facility] [id number] [address] 17 May, 2010 [facility] [address] [facility] [id number] [address] 17 May, 2010 [facility] [address] [facility] [id number], [place] [address] May, [facility] [address] [facility] [id number], [place] [address] 23 Apr, 2010 [facility] [address] [facility] [id number], [place] [address] 14 Apr, 2010 [facility] [address] [facility] [id number], [place] [address] 10 Mar, 2010 [facility] [address] [facility] [id number], [place] [address] Feb, [facility] [id number], [place] [address] Sep, [facility] [address] [facility] [id number], [place] [address] Sep, [facility] [id number], [place] [address] Aug, [facility] [address] [id number], [place] [address] Jun, [facility] [address] [id number], [place] [address] Jun, [facility] [address] [facility] [id number], [place] [address] May, [facility] [id number], [place] [address] Dec, [facility] [address] [facility] [id number][place] [address] Sep, IMMUNIZATIONS No Known Immunizations SOCIAL HISTORY Never Assessed REASON FOR VISIT Controlled Med Refill 04/02/17 PLAN OF CARE VITAL SIGNS MEDICATIONS Medication Instructions Dosage Frequency Start Date End Date Duration Status Pierpont 5-325 MG Orally 4 times a day 1 tablet as needed 6h Mar, 28 days Active Dextroamphetamine Sulfate 10 MG Orally Three times a day 2 tablets 8h Mar, 28 days Active RESULTS No Results [...]
--- OUTSIDE RECORDS SUMMARY | 2018-06-27 07:33 | XMS REPORT ---
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 Name Role Phone ARABELLA DIXON Unavailable PROBLEMS Type Condition ICD9-CM Code XNC84-JI Code Onset Dates Condition Status SNOMED Code Problem Obstructive sleep apnea syndrome G47.33 Active 73051756 Problem High risk medications (not anticoagulants) long-term use Z79.899 Active 547975433 Problem Essential hypertension I10 Active 47226628 Problem Mood disorder F39 Active 21391916 Problem Morbid obesity due to excess calories E66.01 Active 531387689 Problem Diabetes type 2, controlled E11.9 Active 58632299 Problem Anxiety F41.9 Active 66290114 Problem Migraine without aura and without status migrainosus, not intractable G43.009 Active 680160051 ALLERGIES Substance Reaction Event Type Date Status Wellbutrin Unknown Drug Allergy Jun, Active Effexor increases depression -JCriserRN Drug Allergy Jun, Active ENCOUNTERS Encounter Location Date Diagnosis [place] [id number] [place] [address] 06130- 2233 Jan, [place] [address] [place] [id number] [place] [address] 21667- 3474 Dec, Diabetes type 2, controlled E11.9 [place] [address] [address] [id number] [place] [address] 66735- 7992 Dec, Morbid obesity due to excess calories E66.01 ; Essential hypertension I10 ; Tobacco abuse Z72.0 and Tobacco abuse counseling Z71.6 [place] [address] [place] [id number] [place] [address] 29805- 0001 November, Diabetes type 2, controlled E11.9 [place] [address] [place] [address] 26391- 1660 Oct, Diabetes type 2, controlled E11.9 [facility] [address], [place] [address] 3074 Sep, Diabetes type 2, controlled E11.9 [facility] [address], [place] [address]- 6888 Sep, [facility] [address] [place] [id number] [place] [address] 83237- 2732 Aug, Diabetes type 2, controlled E11.9 and Morbid obesity due to excess calories E66.01 [facility] [address], [place] [address] 0733 Jul, Anxiety F41.9 [facility] [address] [place] [address] [place] [address] 56339- 2361 Jul, [facility] [address] [place] [address] 31899- 0945 Jul, Anxiety F41.9 ; Mood disorder F39 ; Morbid obesity due to excess calories E66.01 and Diabetes type 2, controlled E11.9 [facility] [address], [place] [address]- 9297 Jun, Anxiety F41.9 [facility] [address], [place] [address]- 2529 Jun, Anxiety F41.9 ; Morbid obesity due to excess calories E66.01 and Diabetes type 2, controlled E11.9 [facility] [address], [place] [address]- 3946 May, Migraine without aura and without status migrainosus, not intractable G43.009 ; Diabetes type 2, controlled E11.9 and Morbid obesity due to excess calories E66.01 [facility] [address], [place] [address]- 1423 Apr, Migraine without aura and without status migrainosus, not intractable G43.009 ; Diabetes type 2, controlled E11.9 and Morbid obesity due to excess calories E66.01 [facility] [address], [place] [address]- 2241 Apr, Diabetes type 2, controlled E11.9 and Morbid obesity due to excess calories E66.01 [place] [address] [place] [address] 09369- 2324 Mar, Diabetes type 2, controlled E11.9 and Morbid obesity due to excess calories E66.01 [place] [address] [place] [address] [place] [address] 60582- 4928 Mar, Diabetes type 2, controlled E11.9 and Mood disorder F39 [place] [address] [place] [address] [place] [address] 84193- 3560 Feb, Morbid obesity due to excess calories E66.01 and Diabetes type 2, controlled E11.9 [place] [address] [place] [address] [place] [address] 41326- 3069 Jan, Diabetes type 2, controlled E11.9 and Morbid obesity due to excess calories E66.01 [place] [address] [place] [address] 06083- 9051 Dec, Diabetes type 2, controlled E11.9 and Morbid obesity due to excess calories E66.01 [place] [address] [place] [address] 77118- 4353 Dec, Morbid obesity due to excess calories E66.01 [place] [address] [address]- 2349 November, Diabetes type 2, controlled E11.9 and Morbid obesity due to excess calories E66.01 [place] [address] [place] [address] 37800- 9527 November, Anxiety F41.9 and Injury of right foot, initial encounter S99.921A [place] [address] [place] [address] [place] [address] 91887- 2699 November, Diabetes type 2, controlled E11.9 and Morbid obesity due to excess calories E66.01 [place] [address] [place] [address] [place] [address] 48590- 4754 November, [facility] [address] [place] [address] 15446- 4573 Oct, [facility] [address] [place] [address] [place] [address] 57793- 2394 Oct, Family history of brain aneurysm Z82.49 and Migraine without aura and without status migrainosus, not intractable G43.009 [facility] [address] [place] [address] [place] [address] 96869- 1137 Oct, Diabetes type 2, controlled E11.9 [facility] [address] [place] [address] [place] [address] 21044- 1689 Oct, Morbid obesity due to excess calories E66.01 ; Family history of brain aneurysm Z82.49 and Migraine without aura and without status migrainosus, not intractable G43.009 [facility] [address] [place] [address] [place] [address] 07764- 4521 Oct, Diabetes type 2, controlled E11.9 and Morbid obesity due to excess calories E66.01 [facility] [address] [place] [address] [place] [address] 90802- 4237 Sep, [facility] [address] [place] [address] [place] [address] 65742- 4948 Sep, Diabetes type 2, controlled E11.9 [facility] [address] [place] [address] [place] [address] 36029- 9614 Sep, Morbid obesity due to excess calories E66.01 [facility] [address] [place] [address] [place] [address] 57241- 6552 Aug, Exposure to hepatitis C Z20.5 [facility] [address] [place] [address] [place] [address] 34397- 9542 Aug, Diabetes type 2, controlled E11.9 [facility] [address] [place] [address] [address] [place] [address] 66329- 4353 Jul, Exposure to hepatitis C Z20.5 [facility] [address] [address]- 7441 Jul, Exposure to hepatitis C Z20.5 [facility] [address] [place] [address] 76893- 1462 Jul, [facility] [address], [place] [address]- 8658 Jul, Diabetes type 2, controlled E11.9 [facility] [address] [address]- 4464 Jun, [facility] [address] [place] [address] [place] [address] 53568- 1809 Jun, Diabetes type 2, controlled E11.9 ; Pain of left foot M79.672 and Pain in right foot M79.671 [facility] [address] [place] [address] [address] [place] [address] 11382- 1086 May, [facility] [address], [place] [address]- 1435 Apr, [facility] [address] [place] [address] [place] [address] 75699- 6540 Apr, [facility] [address], [place] [address]- 4693 Mar, [facility] [address], [place] [address]- 6990 Feb, [facility] [address], [place] [address]- 2541 Feb, [facility] [address] [place] [address] 95198- 6384 Jan, [facility] [address] [place] [address] 14931- 2547 Dec, Diabetes type 2, controlled E11.9 ; 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 and Abscess, abdomen K65.1 [facility] [address], [place] [address]- 8122 Dec, Shoulder pain, right 719.41 [facility] [address], [place] [address]- 7334 November, [facility] [address], [place] [address]- 0407 November, [facility] [address] [place] [address] [place] [address] 79474- 9752 Oct, [facility] [address] [place] [address] 59388- 5937 Sep, [facility] [address] [place] [address] 92067- 6940 Sep, [facility] [address], [place] [address] -8788 Aug, [facility] [address], [place] [address]- 3509 Aug, [facility] [address], [place] [address]- 7787 Aug, Cellulitis, unspecified L03.90 ; Cutaneous abscess, unspecified L02.91 ; Diabetes type 2, controlled E11.9 ; Migraine G43.909 and Bilateral low back pain with sciatica, sciatica laterality unspecified M54.40 [facility] [address], [place] [address] Aug, Abscess and cellulitis L03.90 [facility] [address], [place] [address]- 2988 Aug, [facility] [address], [place] [address]- 5071 Aug, [facility] [address], [place] [address]- 9565 Jul, [facility] [address] [address]- 6928 Jul, Diabetes type 2, controlled E11.9 [facility] [address] [place] [address] [place] [address], [place]- 2015 Jul, Diabetes type 2, controlled E11.9 [facility] [address] [address] 7881 Jun, Diabetes type 2, controlled E11.9 ; Bilateral low back pain with sciatica, sciatica laterality unspecified M54.40 and Morbid obesity, unspecified obesity type E66.01 [facility] [address] [facility] [id number] [place] [address]- 6632 Jun, [facility] [address] [address]- 5164 May, [facility] [address] [place] [address] [address] [place] [address] 65588- 4721 Apr, [facility] [address] [address]- 2667 Apr, [facility] [address], [place] [address]- 1086 Apr, [facility] [address], [place] [address]- 1256 Mar, [facility] [address], [place] [address]- 4405 Mar, [facility] [address], [place] [address]- 4920 Mar, [facility] [address] 8805 Feb, [facility] [address] 9432 Feb, [facility] [address], [place] [address]- 6920 Feb, [facility] [address] [address] 0315 Feb, [facility] [address] [place] [address] [place] [address] 83128- 6238 Feb, Diabetes mellitus without mention of complication, type II or unspecified type, not stated as uncontrolled 250.00 [facility] [address] [place] [address] [place] [address] 28149- 1843 Feb, [facility] [address] [place] [address] [place] [address] 21595- 5412 Feb, [facility] [address] [place] [address] [place] [address] 62851- 3518 Jan, Diabetes mellitus without mention of complication, type II or unspecified type, not stated as uncontrolled 250.00 and Cellulitis and abscess 682.9 [facility] [address] [place] [address] [place] [address] 50231- 6966 Jan, [facility] [address] [place] [address] [place] [address] 22913- 2482 Jan, [facility] [address] [place] [place] [address] 25063- 6092 Jan, [facility] [address] [place] [address] [place] [address] 20459- 7907 Dec, [facility] [address], [place] [address]- 2368 Dec, [facility] [address] [address]- 8772 Dec, [facility] [address] 0397 November, [facility] [address] [place] [address] 06632850- 1630 Oct, Shoulder pain, right 719.41 [facility] [address] 3574 Oct, [facility] [place] [facility] [address] [id number] [place] [address]- 8357 Oct, [facility] [place] [facility] [address] [id number] [place] [address]- 3985 Sep, [facility] [place] [facility] [address] [id number] [place] [address]- 5967 Sep, [facility] [place] [facility] [address] [id number] [place] [address]- 8687 Sep, [facility] [place] [facility] [address] [id number] [place] [address]- 1243 Sep, [facility] [place] [facility] [address] [id number] [place] [address]- 4734 Sep, [facility] [place] [facility] [address] [id number] [place] [address]- 6147 Sep, [facility] [place] [facility] [address] [id number] [place] [address]- 1750 Sep, [facility] [place] [facility] [address] [id number] [place] [address]- 2876 Sep, [facility] [place] [facility] [address] [id number] [place] [address]- 1707 Aug, [facility] [place] [facility] [address] [id number] [place] [address]- 6343 Aug, [facility] [place] [facility] [address] [id number] [address]- 1872 Aug, [facility] [place] [facility] [address] [id number] [place] [address]- 5849 Aug, [facility] [place] [facility] [address] [id number] [place] [address]- 5514 Jul, [facility] [place] [facility] [address] [id number] [address]- 4554 Jul, [facility] [place] [facility] [address] [id number] [address]- 1165 14 Jul, 2014 [facility] [place] [facility] [address] [id number] [place] [address]- 7295 14 Jul, 2014 [facility] [place] [facility] [address] [id number] [place] [address]- 9543 Jul, [facility] [place] [facility] [address] [facility] [id number] [place] [address]- 6403 Jul, [facility] [place] [facility] [address] [id number] [place] [address]- 3087 24 Jun, 2014 [facility] [place] [facility] [address] [id number] [place] [address]- 8966 24 Jun, 2014 [facility] [place] [facility] [address] [id number] [place] [address]- 7736 Jun, [facility] [place] [facility] [address] [facility] [id number] [place] [address]- 3215 Jun, [facility] [place] [facility] [address] [id number] [place] [address]- 0007 18 Jun, 2014 [facility] [place] [facility] [address] [id number] [place] [address]- 2668 18 Jun, 2014 [facility] [place] [facility] [address] [facility] [id number] [place] [address]- 0241 15 Jun, 2014 [facility] [place] [facility] [address] [id number] [place] [address]- 8774 Jun, [facility] [place] [facility] [address] [id number] [address]- 3385 May, [facility] [place] [facility] [address] [id number] [place] [address]- 7299 May, [facility] [place] [facility] [address] [facility] [id number] [place] [address]- 4362 May, [facility] [place] [facility] [address] [facility] [id number] [place] [address]- 4043 May, [facility] [place] [facility] [address] [id number] [place] [address]- 4101 May, [facility] [place] [facility] [address] [id number] [place] [address]- 9213 May, [facility] [place] [facility] [address] [id number] [place] [address]- 2975 Apr, [facility] [place] [facility] [address] [id number] [place] [address]- 4379 Apr, [facility] [place] [facility] [address] [id number] [place] [address]- 3033 Apr, [facility] [place] [facility] [address] [id number] [place] 1445 Apr, [facility] [place] [facility] [address] [id number] [place] [address]- 0611 Apr, [facility] [place] [facility] [address] [id number] [place] [address]- 7110 Apr, [facility] [place] [facility] [address] [id number] [place] [address]- 8554 Apr, [facility] [place] [facility] [address] [id number] [place] [address]- 5012 Mar, [facility] [place] [facility] [address] [id number] [place] [address]- 3936 Mar, [facility] [place] [facility] [address] [id number] [place] [address]- 1777 Mar, [facility] [place] [facility] [address] [id number] [place] [address]- 2693 Mar, [facility] [place] [facility] [address] [id number] [place] [address]- 5910 Feb, [facility] [place] [facility] [address] [id number] [place] [address]- 3094 Feb, [facility] [place] [facility] [address] [id number] [place] [address]- 3697 Feb, [facility] [place] [facility] [address] [id number] [place] [address]- 8070 Feb, [facility] [place] [facility] [address] [id number] [place] [address]- 1477 Feb, [facility] [place] [facility] [address] [id number] [place] [address]- 5068 Feb, [facility] [place] [facility] [address] [id number] [place] [address]- 6962 Jan, [facility] [place] [facility] [address] [id number] [place] [address]- 2079 Jan, [facility] [place] [facility] [address] [id number] [place] [address]- 8875 Jan, [facility] [place] [facility] [address] [id number] [place] [address]- 7481 Jan, [facility] [place] [facility] [address] [id number] [place] [address]- 2819 Jan, [facility] [place] [facility] [address] [id number] [place] [address]- 2160 Jan, [facility] [place] [facility] [address] [id number] [place] [address]- 6669 Jan, [facility] [place] [facility] [address] [id number] [place] [address]- 8891 Jan, [facility] [place] [facility] [address] [id number] [place] [address]- 0384 Jan, [facility] [place] [facility] [address] [id number] [place] [address]- 8261 Jan, [facility] [place] [facility] [address] [id number] [place] [address]- 6938 Dec, [facility] [place] [facility] [address] [id number] [place] [address]- 0238 Dec, [facility] [place] [facility] [address] [id number] [place] [address]- 3496 Dec, [facility] [place] [facility] [address] [id number] [place] [address]- 6104 Dec, [facility] [place] [facility] [address] [id number] [place] [address]- 8174 November, [facility] [place] [facility] [address] [id number] [place] [address]- 1328 November, [facility] [place] [facility] [address] [id number] [place] [address]- 0039 November, [facility] [place] [facility] [address] [id number] [place] [address]- 7602 November, [facility] [place] [facility] [address] [id number] [place] [address]- 4590 Oct, [facility] [place] [facility] [address] [id number] [place] [address]- 4615 Oct, [facility] [place] [facility] [address] [id number] [place] [address]- 1702 Oct, [facility] [place] [facility] [address] [id number] [place] [address]- 0988 Oct, [facility] [place] [facility] [address] [id number] [place] [address]- 7015 Oct, [facility] [place] [facility] [address] [id number] [place] [address]- 1716 Oct, [facility] [place] [facility] [address] [id number] [place] [address]- 9081 Oct, [facility] [place] [facility] [address] [id number] [place] [address]- 2277 Oct, [facility] [place] [facility] [address] [id number] [place] [address]- 5471 Sep, [facility] [place] [facility] [address] [id number] [place] [address]- 8105 Sep, [facility] [place] [facility] [address] [id number] [place] [address]- 0865 Sep, [facility] [place] [facility] [address] [id number] [place] [address]- 6833 Sep, [facility] [place] [facility] [address] [id number] [place] [address]- 2168 Sep, [facility] [place] [facility] [address] [id number] [place] [address] Sep, [facility] [place] [facility] [address] [id number] [place] [address] Aug, [facility] [place] [facility] [address] [id number] [place] [address] Aug, [facility] [place] [facility] [address] [id number] [place] [address] Jul, [facility] [place] [facility] [address] [id number] [place] [address] Jul, [facility] [place] [facility] [address] [id number] [place] [address] Jul, [facility] [place] [facility] [address] [id number] [place] [address] Jul, [facility] [place] [facility] [address] [id number] [place] [address] Jul, [facility] [place] [facility] [address] [id number] [place] [address] Jul, [facility] [place] [facility] [address] [id number] [place] [address] Jul, [facility] [place] [facility] [address] [id number] [place] [address] Jul, [facility] [place] [facility] [address] [id number] [place] [address] Jun, [facility] [place] [facility] [address] [id number], [place] [address] Jun, [facility] [place] [facility] [address] [id number] [place] [address] May, [facility] [place] [facility] [address] [id number][place] [address] May, [facility] [place] [facility] [address] [id number] [place] [address] Apr, [facility] [place] [facility] [address] [id number] [place] [address] Apr, [facility] [place] [facility] [address] [id number] [place] [address] Apr, [facility] [place] [facility] [address] [id number] [place] [address] Apr, [facility] [place] [facility] [address] [id number], [place] [address] Apr, [facility] [place] [facility] [address] [id number] [place] [address] Apr, [facility] [place] [facility] [address] [id number] [place] [address] Apr, [facility] [place] [facility] [address] [id number], [place] [address] Apr, [facility] [place] [facility] [address] [id number], [place] [address] Apr, [facility] [place] [facility] [address] [id number], [place] [address] Apr, [facility] [place] [facility] [address] [id number], [place] [address] Apr, [facility] [place] [facility] [address] [id number], [place] [address] Apr, [facility] [place] [facility] [address] [id number] [place] [address] 18 Apr, 2013 [facility] [place] [facility] [address] [id number] [place] [address] 18 Apr, 2013 [facility] [address] [id number] [place] [address] 02 Apr, 2013 [facility] [place] [facility] [address] [id number] [place] [address] 27 Mar, 2012 [facility] [place] [facility] [address] [id number] [place] [address] 27 Mar, 2012 [facility] [place] [facility] [address] [id number] [place] [address] 26 Mar, 2012 [facility] [address] [id number] [place] [address] 25 Mar, 2013 [facility] [place] [facility] [address] [id number] [place] [address] 16 Mar, 2013 [facility] [place] [facility] [address] [id number] [place] [address] 03 Mar, 2013 [facility] [address] [id number] [place] [address] 31 Jan, 2013 [facility] [place] [facility] [address] [id number] [place] [address] Jan, [facility] [address] [id number] [place] [address] Jan, [facility] [place] [facility] [address] [id number] [place] [address] Dec, [facility] [place] [facility] [address] [id number] [place] [address] Oct, [facility] [place] [facility] [address] [id number] [place] [address] May, [facility] [place] [facility] [address] [id number] [place] [address] May, [facility] [place] [facility] [address] [id number] [place] [address] 05 Jun, 2011 [facility] [place] [facility] [address] [id number] [place] [address] 11 May, 2011 [facility] [place] [facility] [address] [id number] [place] [address] May, [facility] [place] [facility] [address] [id number] [place] [address] 03 May, 2011 [facility] [place] [facility] [address] [id number] [place] [address] 14 Apr, 2011 [facility] [place] [facility] [address] [id number] [place] [address] 13 Apr, 2011 [facility] [place] [facility] [address] [id number] [place] [address] 17 Feb, 2011 [facility] [place] [facility] [address] [id number] [place] [address] 16 Feb, 2011 [facility] [place] [facility] [address] [id number] [place] [address] Dec, [facility] [place] [facility] [address] [id number] [place] [address] Oct, [facility] [place] [facility] [address] [id number] [place] [address] Sep, [facility] [place] [facility] [address] [id number] [place] [address] Sep, [facility] [place] [facility] [address] [id number] [place] [address] Jul, [facility] [place] [facility] [address] [id number] [place] [address] Jul, [facility] [place] [facility] [address] [id number] [place] [address] 28 Jun, 2010 [facility] [place] [facility] [address] [id number] [place] [address] 23 Jun, 2010 [facility] [place] [facility] [address] [id number] [place] [address] 14 Jun, 2010 [facility] [place] [facility] [address] [id number] [place] [address] 14 Jun, 2010 [facility] [place] [facility] [address] [id number] [place] [address] 08 Jun, 2010 [facility] [place] [facility] [address] [id number] [place] [address] 30 May, 2010 [facility] [place] [facility] [address] [id number] [place] [address] 23 May, 2010 [facility] [place] [facility] [address] [id number] [place] [address] 17 May, 2010 [facility] [place] [facility] [address] [id number] [place] [address] 17 May, 2010 [facility] [place] [facility] [address] [id number] [place] [address] 17 May, 2010 [facility] [place] [facility] [address] [id number] [place] [address] 17 May, 2010 [facility] [place] [facility] [address] [id number] [place] [address] 23 Apr, 2010 [facility] [place] [facility] [address] [facility] [id number] [place] [address] 14 Apr, 2010 [facility] [place] [facility] [address] [id number] [place] [address] 10 Mar, 2010 [facility] [place] [facility] [address] [id number] [place] [address] 10 Feb, 2010 [facility] [place] [facility] [address] [id number] [place] [address] 17 Sep, 2009 [facility] [place] [facility] [address] [id number] [place] [address] Sep, [facility] [place] [facility] [address] [facility] [id number] [place] [address] 18 Aug, 2009 [facility] [address] [facility] [id number] [address] Jun, [facility] [address] [facility] [id number], [place] [address] Jun, [facility] [address] [facility] [id number], [place] [address] May, [facility] [address] [facility] [id number], [place] [address] Dec, [facility] [address] [facility] [id number], [place] [address] Sep, IMMUNIZATIONS No Known Immunizations SOCIAL HISTORY Never Assessed REASON FOR VISIT Pain management (chronic)- States anxiety is worse- Tim Hoff RN, Stoped taking ativan because it makes her angry- Tim Hoff RN PLAN OF CARE VITAL SIGNS Height 69 in 2017-06-15 Weight 256 lbs 2017-06-15 Temperature 98.3 degrees Fahrenheit 2017-06-15 Heart Rate 72 bpm 2017-06-15 Respiratory Rate 20 2017-06-15 BMI 37.80 kg/m2 2017-06-15 Blood pressure systolic 128 mmHg 2017-06-15 Blood pressure diastolic 78 mmHg 2017-06-15 MEDICATIONS Medication Instructions Dosage Frequency Start Date End Date Duration Status Vitamins 0.8 MG Orally Once a day 1 tablet 24h Active Contour Blood Glucose System Lancets test blood sugar 12h 20 Jul, 2015 Active Blood Glucose Monitor System w/Device as directed Aug, Active Xanax 1 MG Orally Twice a day 1 tablet 12h Jun, Active Ibuprofen 200 MG Orally every 6 hrs 1 tablet as needed 6h Active Blood Glucose Test Strip as directed Aug, Active Lisinopril 20 mg Orally Once a day 1 tablet 24h Active [place] 5-325 MG Orally 4 times a day 1 tablet as needed 6h Jun, 28 days Active Dextroamphetamine Sulfate 10 MG Orally Three times a day 2 tablets 8h Jun, 28 days Active RESULTS No Results PROCEDURES [...]
--- OUTSIDE RECORDS SUMMARY | 2018-06-27 07:34 | XMS REPORT ---
Author Author ALEXIS JACKSON [facility] Address [address] [place] [address] Care Team Providers Care Mcat Instructor Name Role Phone ALEXIS JACKSON Unavailable PROBLEMS Type Condition ICD9-CM Code NKV56-ED Code Onset Dates Condition Status SNOMED Code Problem Obstructive sleep apnea syndrome G47.33 Active 50358207 Problem High risk medications (not anticoagulants) long-term use Z79.899 Active 244192315 Problem Essential hypertension I10 Active 29457250 Problem Mood disorder F39 Active 59819955 Problem Morbid obesity due to excess calories E66.01 Active 661656963 Problem Diabetes type 2, controlled E11.9 Active 20872059 Problem Anxiety F41.9 Active 69135022 Problem Migraine without aura and without status migrainosus, not intractable G43.009 Active 409146388 ALLERGIES No Information ENCOUNTERS Encounter Location Date Diagnosis [place] [id number] [place] [address] 56384- 0996 Jan, [place] [id number] [place] [address] 17119- 0364 Dec, Diabetes type 2, controlled E11.9 [place] [id number] [place] [address] 43430- 6564 Dec, Morbid obesity due to excess calories E66.01 ; Essential hypertension I10 ; Tobacco abuse Z72.0 and Tobacco abuse counseling Z71.6 [place] [id number] [place] [address] 05550- 2565 November, Diabetes type 2, controlled E11.9 [facility] [id number] [place] [address] 67267- 8082 Oct, Diabetes type 2, controlled E11.9 [place] [address] [address]84- 1948 Sep, Diabetes type 2, controlled E11.9 [facility] [id number] [place] [address] 02097- 9489 Sep, [facility] [id number] [place] [address] 90790- 6934 Aug, Diabetes type 2, controlled E11.9 and Morbid obesity due to excess calories E66.01 [place] [id number] [place] [address] 31366- 6243 Jul, Anxiety F41.9 [place] [id number] [place] [address] 00645- 1974 Jul, [place] [id number] [place] [address] 79896- 3538 Jul, Anxiety F41.9 ; Mood disorder F39 ; Morbid obesity due to excess calories E66.01 and Diabetes type 2, controlled E11.9 [place] [id number] [place] [address] 89680- 1423 Jun, Anxiety F41.9 [place] [id number] [place] [address] 55137- 9700 Jun, Anxiety F41.9 ; Morbid obesity due to excess calories E66.01 and Diabetes type 2, controlled E11.9 [place] [id number] [place] [address] 20836- 9381 May, Migraine without aura and without status migrainosus, not intractable G43.009 ; Diabetes type 2, controlled E11.9 and Morbid obesity due to excess calories E66.01 [place] [id number] [place] [address] 33802- 2147 Apr, Migraine without aura and without status migrainosus, not intractable G43.009 ; Diabetes type 2, controlled E11.9 and Morbid obesity due to excess calories E66.01 [place] [id number] [place] [address] 68909- 3867 Apr, Diabetes type 2, controlled E11.9 and Morbid obesity due to excess calories E66.01 [facility] [address] [address]- 5491 Mar, Diabetes type 2, controlled E11.9 and Morbid obesity due to excess calories E66.01 [facility] [address] [place] [address] 46674- 8363 Mar, Diabetes type 2, controlled E11.9 and Mood disorder F39 [facility] [id number] [place] [address] 84868- 2702 Feb, Morbid obesity due to excess calories E66.01 and Diabetes type 2, controlled E11.9 [place] [id number] [place] [address] 99656- 3661 Jan, Diabetes type 2, controlled E11.9 and Morbid obesity due to excess calories E66.01 [place] [id number] [place] [address] 29750- 7865 Dec, Diabetes type 2, controlled E11.9 and Morbid obesity due to excess calories E66.01 [facility] [id number] [place] [address] 73394- 6900 Dec, Morbid obesity due to excess calories E66.01 [place] [id number] [place] [address] 22910- 7180 November, Diabetes type 2, controlled E11.9 and Morbid obesity due to excess calories E66.01 [facility] [address] [place] [address] 53665- 8091 November, Anxiety F41.9 and Injury of right foot, initial encounter S99.921A [place] [id number] [place] [address] 26823- 2657 November, Diabetes type 2, controlled E11.9 and Morbid obesity due to excess calories E66.01 [facility] [address] [address]- 3974 November, [facility] [id number] [place] [address] 31456- 3050 Oct, [facility] [id number] [place] [address] 90326- 3143 Oct, Family history of brain aneurysm Z82.49 and Migraine without aura and without status migrainosus, not intractable G43.009 [facility] [id number] [place] [address] 47844- 2961 Oct, Diabetes type 2, controlled E11.9 [facility] [id number] [place] [address] 58783- 6906 Oct, Morbid obesity due to excess calories E66.01 ; Family history of brain aneurysm Z82.49 and Migraine without aura and without status migrainosus, not intractable G43.009 [facility] [id number] [place] [address] 72158- 3389 Oct, Diabetes type 2, controlled E11.9 and Morbid obesity due to excess calories E66.01 [facility] [id number] [place] [address] 73483- 4585 Sep, [place] [id number] [place] [address] 56459- 8460 Sep, Diabetes type 2, controlled E11.9 [facility] [id number] [place] [address] 71092- 2141 Sep, Morbid obesity due to excess calories E66.01 [facility] [id number] [place] [address] 50358- 5032 Aug, Exposure to hepatitis C Z20.5 [facility] [id number] [place] [address] 01496- 9192 Aug, Diabetes type 2, controlled E11.9 [facility] [id number] [place] [address] 22293- 9546 Jul, Exposure to hepatitis C Z20.5 [facility] [id number] [place] [address] 24344- 7150 Jul, Exposure to hepatitis C Z20.5 [facility] [id number] [place] [address] 78817- 4500 Jul, [facility] [id number] [place] [address] 98436- 0062 Jul, Diabetes type 2, controlled E11.9 [facility] [id number] [place] [address] 85545- 8490 Jun, [facility] [id number] [place] [address] 71307- 7576 Jun, Diabetes type 2, controlled E11.9 ; Pain of left foot M79.672 and Pain in right foot M79.671 [facility] [id number] [place] [address] 36268- 0623 May, [facility] [id number] [place] [address] 52159- 7960 Apr, [facility] [id number] [place] [address] 71854- 4256 Apr, [facility] [id number] [place] [address] 07259- 5248 Mar, [facility] [id number] [place] [address] 68412- 9704 Feb, [facility] [id number] [place] [address] 04379- 1072 Feb, [facility] [id number] [place] [address] 70857- 7193 Jan, [facility] [id number] [place] [address] 86595- 7379 Dec, Diabetes type 2, controlled E11.9 ; 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 and Abscess, abdomen K65.1 [facility] [id number] [place] [address] 58809- 0257 Dec, Shoulder pain, right 719.41 [facility] [address] [address]- 0875 November, [facility] [id number] [place] [address] 11398- 7642 November, [facility] [id number] [place] [address] 52622- 8645 Oct, [facility] [id number] [place] [address] 07828- 3937 Sep, [facility] [id number] [place] [address] 89929- 3914 Sep, [facility] [id number] [place] [address] 38196 -6552 Aug, [facility] [id number] [place] [address] 37369- 4935 Aug, [facility] [id number] [place] [address] 59872- 1095 Aug, Cellulitis, unspecified L03.90 ; Cutaneous abscess, unspecified L02.91 ; Diabetes type 2, controlled E11.9 ; Migraine G43.909 and Bilateral low back pain with sciatica, sciatica laterality unspecified M54.40 [facility] [address] [address] -7937 Aug, Abscess and cellulitis L03.90 [facility] [id number] [address]- 1437 Aug, [facility] [id number] [place] [address] 82610- 0071 Aug, [facility] [id number] [place] [address] 71349- 1199 Jul, [facility] [address], [place] [address]- 3805 Jul, Diabetes type 2, controlled E11.9 [facility] [address] [facility] [id number] [address]- 8166 Jul, Diabetes type 2, controlled E11.9 [facility] [address] [address]- 4561 Jun, Diabetes type 2, controlled E11.9 ; Bilateral low back pain with sciatica, sciatica laterality unspecified M54.40 and Morbid obesity, unspecified obesity type E66.01 [facility] [address] [facility] [id number] [address]- 8458 Jun, [facility] [id number] [place] [address] 58525- 7239 May, [facility] [id number] [place] [address] 11128- 1386 Apr, [facility] [id number] [place] [address] 92745- 5128 Apr, [facility] [address], [place] [address]- 6310 Apr, [facility] [address], [place] [address]- 6768 Mar, [facility] [address], [place] [address]- 1055 Mar, [facility] [address], [place] [address]- 6070 Mar, [facility] [address], [place] [address]- 7102 Feb, [facility] [address], [place] [address]- 4065 Feb, [facility] [address], [place] [address]- 8730 Feb, [facility] [address], [place] [address]- 9168 Feb, [facility] [address] [address]- 9744 Feb, Diabetes mellitus without mention of complication, type II or unspecified type, not stated as uncontrolled 250.00 [facility] [address], [place] [address]- 0586 Feb, [facility] [id number] [place] [address] 61305- 6900 Feb, [facility] [id number] [place] [address] 73765- 0769 Jan, Diabetes mellitus without mention of complication, type II or unspecified type, not stated as uncontrolled 250.00 and Cellulitis and abscess 682.9 [facility] [address] [address]- 8356 Jan, [facility] [id number] [place] [address] 27423- 5595 Jan, [facility] [address], [place] [address]- 9436 Jan, [facility] [id number] [place] [address] 13308- 9376 Dec, [facility] [address], [place] [address]- 8726 Dec, [facility] [address], [place] [address]- 5316 Dec, [facility] [address] [address]- 1216 November, [facility] [id number] [place] [address] 58121- 7316 Oct, Shoulder pain, right 719.41 [facility] [address], [place] [address]- 7059 Oct, [facility] [id number] [place] [address] [id number]- 2525 Oct, [facility] [place] [facility] [address] [id number] [place] [address]- 7057 Sep, [facility] [place] [facility] [address] [id number] [place] [address]- 4793 Sep, [facility] [place] [facility] [address] [id number] [place] [address]- 4356 Sep, [facility] [place] [facility] [address] [id number] [place] [address]- 1471 Sep, [facility] [place] [facility] [address] [id number] [place] [address]- 9269 Sep, [facility] [place] [facility] [address] [id number] [place] [address]- 4866 Sep, [facility] [place] [facility] [address] [id number] [place] [address]- 4395 Sep, [facility] [place] [facility] [address] [id number] [place] [address]- 7140 Sep, [facility] [place] [facility] [address] [id number] [place] [address]- 9037 Aug, [facility] [place] [facility] [address] [id number] [place] [address]- 9425 Aug, [facility] [place] [facility] [address] [id number] [place] [address]- 0710 Aug, [facility] [place] [facility] [address] [id number] [address]- 4173 Aug, [facility] [place] [facility] [address] [id number] [place] [address]- 5326 Jul, [facility] [place] [facility] [address] [id number] [place] [address]- 4797 Jul, [facility] [place] [facility] [address] [id number] [place] [address]- 7939 Jul, [facility] [place] [facility] [address] [id number] [place] [address]- 3009 14 Jul, 2014 [facility] [place] [facility] [address] [id number] [place] [address]- 2251 12 Jul, 2014 [facility] [place] [facility] [address] [id number] [place] [address]- 4477 12 Jul, 2014 [facility] [place] [facility] [address] [id number] [place] [address]- 0251 24 Jun, 2014 [facility] [place] [facility] [address] [id number] [place] [address]- 1421 24 Jun, 2014 [facility] [place] [facility] [address] [id number] [place] [address]- 3246 Jun, [facility] [place] [facility] [address] [id number] [place] [address]- 8680 Jun, [facility] [place] [facility] [address] [id number] [place] [address]- 5849 18 Jun, 2014 [facility] [place] [facility] [address] [id number] [place] [address]- 6195 18 Jun, 2014 [facility] [place] [facility] [address] [id number] [place] [address]- 3331 15 Jun, 2014 [facility] [place] [facility] [address] [facility] [id number] [place] [address]- 5300 15 Jun, 2014 [facility] [place] [facility] [address] [id number] [place] [address]- 9315 May, [facility] [place] [facility] [address] [id number] [place] [address]- 1704 May, [facility] [place] [facility] [address] [id number] [place] [address]- 1006 18 May, 2014 [facility] [place] [facility] [address] [id number] [place] [address]- 4903 18 May, 2014 [facility] [place] [facility] [address] [id number] [place] [address]- 0053 May, [facility] [place] [facility] [address] [id number] [place] [address]- 1721 May, [facility] [place] [facility] [address] [id number] [place] [address]- 9426 Apr, [facility] [place] [facility] [address] [id number] [place] 2287 Apr, [facility] [place] [facility] [address] [id number] [place] [address]- 0614 Apr, [facility] [place] [facility] [address] [id number] [place] [address]- 5438 Apr, [facility] [place] [facility] [address] [id number] [place] [address]- 5495 Apr, [facility] [place] [facility] [address] [id number] [place] [address]- 4288 Apr, [facility] [place] [facility] [address] [id number] [place] [address]- 9386 Apr, [facility] [place] [facility] [address] [id number] [place] [address]- 3407 Mar, [facility] [place] [facility] [address] [id number] [place] [address]- 6521 Mar, [facility] [place] [facility] [address] [id number] [place] [address]- 2269 Mar, [facility] [place] [facility] [address] [id number] [place] [address]- 5635 Mar, [facility] [place] [facility] [address] [id number] [place] [address]- 8335 Feb, [facility] [place] [facility] [address] [id number] [place] [address]- 2809 Feb, [facility] [place] [facility] [address] [id number] [place] [address]- 2746 Feb, [facility] [place] [facility] [address] [id number] [place] [address]- 1906 Feb, [facility] [place] [facility] [address] [id number] [place] [address]- 1047 Feb, [facility] [place] [facility] [address] [id number] [place] [address]- 8828 Feb, [facility] [place] [facility] [address] [id number] [place] [address]- 4186 Jan, [facility] [place] [facility] [address] [id number] [place] [address]- 4576 Jan, [facility] [place] [facility] [address] [id number] [place] [address]- 4578 Jan, [facility] [place] [facility] [address] [id number] [place] [address]- 3376 Jan, [facility] [place] [facility] [address] [id number] [place] [address]- 7640 Jan, [facility] [place] [facility] [address] [id number] [place] [address]- 9750 Jan, [facility] [place] [facility] [address] [id number] [place] [address]- 0668 Jan, [facility] [place] [facility] [address] [id number] [place] [address]- 6798 Jan, [facility] [place] [facility] [address] [id number] [place] [address]- 8180 Jan, [facility] [place] [facility] [address] [id number] [place] [address]- 1380 Jan, [facility] [place] [facility] [address] [id number] [place] [address]- 7240 Dec, [facility] [place] [facility] [address] [id number] [place] [address]- 5985 Dec, [facility] [place] [facility] [address] [id number] [place] [address]- 9065 Dec, [facility] [place] [facility] [address] [id number] [place] [address]- 4151 Dec, [facility] [address] [id number] [place] [address]- 0789 November, [facility] [place] [facility] [address] [id number] [place] [address]- 7948 November, [facility] [address] [id number] [place] [address]- 6172 November, [facility] [place] [facility] [address] [id number] [place] [address]- 3501 November, [facility] [address] [id number] [place] [address]- 1459 Oct, [facility] [place] [facility] [address] [id number] [place] [address]- 2298 Oct, [facility] [place] [facility] [address] [id number] [place] [address]- 9439 Oct, [facility] [address] [id number] [place] [address] Oct, [facility] [place] [facility] [address] [id number] [place] [address] Oct, [facility] [address] [id number] [place] [address] Oct, [facility] [place] [facility] [address] [id number] [place] [address] Oct, [facility] [place] [facility] [address] [id number] [place] [address] Oct, [facility] [place] [facility] [address] [id number] [place] [address] Sep, [facility] [place] [facility] [address] [id number] [place] [address] Sep, [facility] [place] [facility] [address] [id number] [place] Sep, [facility] [place] [facility] [address] [id number] [place] [address] Sep, [facility] [place] [facility] [address] [id number] [place] [address] Sep, [facility] [place] [facility] [address] [id number] [place] [address] Sep, [facility] [place] [facility] [address] [id number] [place] [address] Aug, [facility] [place] [facility] [address] [id number] [place] [address] Aug, [facility] [place] [facility] [address] [id number] [place] [address] Jul, [facility] [place] [facility] [address] [id number] [place] [address] Jul, [facility] [place] [facility] [address] [id number] [place] [address] Jul, [facility] [place] [facility] [address] [id number] [place] [address] Jul, [facility] [place] [facility] [address] [id number] [place] [address] Jul, [facility] [place] [facility] [address] [id number] [place] [address] Jul, [facility] [place] [facility] [address] [id number] [address] Jul, [facility] [place] [facility] [address] [id number] [place] [address] Jul, [facility] [place] [facility] [address] [id number] [place] [address] Jun, [facility] [place] [facility] [address] [id number] [place] [address] Jun, [facility] [place] [facility] [address] [id number] [place] [address] May, [facility] [place] [facility] [address] [id number] [place] [address] May, [facility] [place] [facility] [address] [id number] [place] [address] Apr, [facility] [place] [facility] [address] [id number] [place] [address] Apr, 2012 [facility] [place] [facility] [address] [id number] [place] [address] Apr, [facility] [place] [facility] [address] [id number] [place] [address] Apr, [facility] [place] [facility] [address] [id number] [place] [address] Apr, [facility] [place] [facility] [address] [id number] [place] [address] Apr, [facility] [place] [facility] [address] [id number] [place] [address] Apr, [facility] [place] [facility] [address] [id number] [place] [address] Apr, [facility] [place] [facility] [address] [id number] [place] [address] Apr, [facility] [place] [facility] [address] [id number] [place] [address] Apr, [facility] [place] [facility] [address] [id number] [place] [address] Apr, 2012 [facility] [place] [facility] [address] [id number] [place] [address] Apr, [facility] [place] [facility] [address] [id number] [place] [address] 18 Apr, 2013 [facility] [place] [facility] [address] [id number] [place] [address] Apr, [facility] [place] [facility] [address] [id number] [place] [address] 02 Apr, 2013 [facility] [place] [facility] [address] [id number] [place] [address] 27 Mar, 2012 [facility] [place] [facility] [address] [id number] [place] [address]44 27 Mar, 2012 [facility] [place] [facility] [address] [id number] [place] [address] 8880 26 Mar, 2012 [facility] [place] [facility] [address] [id number] [place] [address] 7927 25 Mar, 2012 [facility] [place] [facility] [address] [id number] [place] [address] 16 Mar, 2013 [facility] [place] [facility] [address] [id number] [place] [address]68 Mar, [facility] [place] [facility] [address] [id number] [place] [address] Jan, [facility] [place] [facility] [address] [id number] [place] [address] Jan, [facility] [place] [facility] [address] [id number] [place] [address] Jan, [facility] [place] [facility] [address] [id number] [place] [address]647 Dec, [facility] [place] [facility] [address] [id number] [place] [address] Oct, [facility] [place] [facility] [address] [id number] [place] [address] May, [facility] [place] [facility] [address] [id number] [place] [address] May, [facility] [place] [facility] [address] [id number] [place] [address] 05 Jun, 2011 [facility] [place] [facility] [address] [id number] [place] [address] 11 May, 2011 [facility] [place] [facility] [address] [id number] [place] [address] 11 May, 2011 [facility] [place] [facility] [address] [id number] [place] [address] 78[address] 03 May, 2011 [facility] [place] [facility] [address] [id number] [place] [address] 4716 14 Apr, 2011 [facility] [place] [facility] [address] [id number] [place] [address] 2420 13 Apr, 2011 [facility] [place] [facility] [address] [id number] [place] [address] 99[address] 17 Feb, 2011 [facility] [place] [facility] [address] [id number] [place] [address] 16 Feb, 2011 [facility] [place] [facility] [address] [id number] [place] [address] Dec, [facility] [place] [facility] [address] [id number] [place] [address] 12 Oct, 2010 [facility] [place] [facility] [address] [id number] [place] [address] Sep, [facility] [place] [facility] [address] [id number] [place] [address] Sep, [facility] [place] [facility] [address] [id number] [place] [address] 20 Jul, 2010 [facility] [place] [facility] [address] [id number] [place] [address] 9426 11 Jul, 2010 [facility] [place] [facility] [address] [id number] [place] [address] 28 Jun, 2010 [facility] [place] [facility] [address] [id number] [place] [address] 9429 23 Jun, 2010 [facility] [place] [facility] [address] [id number] [place] [address] 14 Jun, 2010 [facility] [place] [facility] [address] [id number] [place] [address]001 14 Jun, 2010 [facility] [address] [id number] [place] [address]29 08 Jun, 2010 [facility] [place] [facility] [address] [id number] [place] [address]21 30 May, 2010 [facility] [address] [id number] [place] [address] 9475 23 May, 2010 [facility] [place] [facility] [address] [id number] [place] [address] 17 May, 2010 [facility] [address] [id number] [place] [address]208 17 May, 2010 [facility] [address] [id number] [place] [address] 6[address] 17 May, 2010 [facility] [address] [id number] [place] [address] May, [facility] [address] [id number] [place] [address] 23 Apr, 2010 [facility] [address] [id number] [place] [address] 7538 14 Apr, 2010 [facility] [address] [id number] [place] [address]- 5768 10 Mar, 2010 [facility] [place] [facility] [address] [id number] [place] [address]- [address] 10 Feb, 2010 [facility] [address] [id number] [place] [address] 0982 17 Sep, 2009 [facility] [place] [facility] [address] [id number] [place] [address] Sep, [facility] [place] [facility] [address] [id number] [place] [address] 2546 18 Aug, 2009 [facility] [place] [facility] [address] [id number] [place] [address] Jun, [facility] [address] [facility] [id number] [place] [address] Jun, [facility] [address] [facility] [id number] [address] May, [facility] [address] [facility] [id number] [address] Dec, [facility] [address] [facility] [id number], [place] [address] Sep, IMMUNIZATIONS No Known Immunizations SOCIAL HISTORY Never Assessed REASON FOR VISIT Controlled Med Refill 08/10/17 PLAN OF CARE VITAL SIGNS MEDICATIONS Medication Instructions Dosage Frequency Start Date End Date Duration Status [place] 5-325 MG Orally 3 times a day 1 tablet as needed 8h Jul, 28 days Active Xanax 1 MG Orally Twice a day 1 tablet 12h Jun, Active Dextroamphetamine Sulfate 10 MG Orally Three times a day 2 tablets 8h Jul, 28 days Active RESULTS No Results PROCEDURES [...]
--- OUTSIDE RECORDS SUMMARY | 2018-06-27 07:35 | XMS REPORT ---
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 Role Phone ARABELLA DIXON Unavailable PROBLEMS Type Condition ICD9-CM Code BUS46-SL Code Onset Dates Condition Status SNOMED Code Problem High risk medications (not anticoagulants) long-term use Z79.899 Active 834083359 Problem Mood disorder F39 Active 14850180 Problem Anxiety F41.9 Active 84001134 Problem Diabetes type 2, controlled E11.9 Active 67676128 Problem Obstructive sleep apnea syndrome G47.33 Active 19124676 Problem Migraine without aura and without status migrainosus, not intractable G43.009 Active 104846242 Problem Morbid obesity due to excess calories E66.01 Active 803873178 ALLERGIES No Information SOCIAL HISTORY Never Assessed [...]
--- OUTSIDE RECORDS SUMMARY | 2018-06-27 07:35 | XMS REPORT ---
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
--- OUTSIDE RECORDS SUMMARY | 2018-06-27 07:35 | XMS REPORT ---
Author Author ARABELLA DIXON Organization [facility] Address [address] [place] [address] Care Team Providers Care Hr Shared Services Consultant Name Role Phone ARABELLA DIXON Unavailable PROBLEMS Type Condition ICD9-CM Code AHN61-[place] Code Onset Dates Condition Status SNOMED Code Problem Obstructive sleep apnea syndrome G47.33 Active 72404131 Problem High risk medications (not anticoagulants) long-term use Z79.899 Active 334756725 Problem Essential hypertension I10 Active 44012351 Problem Mood disorder F39 Active 96383192 Problem Morbid obesity due to excess calories E66.01 Active 966231679 Problem Diabetes type 2, controlled E11.9 Active 97730935 Problem Anxiety F41.9 Active 73525981 Problem Migraine without aura and without status migrainosus, not intractable G43.009 Active 908251345 ALLERGIES No Information ENCOUNTERS Encounter Location Date Diagnosis [place] [id number] [place] [address] 44163- 8386 Jan, [place] [address] [place] [id number] [place] [address] 51320- 3807 Dec, Diabetes type 2, controlled E11.9 [place] [id number] [place] [address] 52443- 4958 Dec, Morbid obesity due to excess calories E66.01 ; Essential hypertension I10 ; Tobacco abuse Z72.0 and Tobacco abuse counseling Z71.6 [place] [address] [place] [address] 97657- 0083 November, Diabetes type 2, controlled E11.9 [place] [address] [place] [id number] [place] [address] 84857- 1372 Oct, Diabetes type 2, controlled E11.9 [place] [id number] [place] [address] 84673- 6711 Sep, Diabetes type 2, controlled E11.9 [facility] [address] [address] 2965 Sep, [facility] [id number] [place] [address] 619779- 7549 Aug, Diabetes type 2, controlled E11.9 and Morbid obesity due to excess calories E66.01 [facility] [address] [id number] [place] [address] 00533- 4589 Jul, Anxiety F41.9 [facility] [id number] [place] [address] 93177- 9245 Jul, [place] [id number] [place] [address] 50106- 1074 Jul, Anxiety F41.9 ; Mood disorder F39 ; Morbid obesity due to excess calories E66.01 and Diabetes type 2, controlled E11.9 [place] [address] [place] [id number] [place] [address] 17777- 2432 Jun, Anxiety F41.9 [facility] [address] [place] [address] 89609- 7086 Jun, Anxiety F41.9 ; Morbid obesity due to excess calories E66.01 and Diabetes type 2, controlled E11.9 [place] [address] [address]- 9470 May, Migraine without aura and without status migrainosus, not intractable G43.009 ; Diabetes type 2, controlled E11.9 and Morbid obesity due to excess calories E66.01 [facility] [address] [address]- 4944 Apr, Migraine without aura and without status migrainosus, not intractable G43.009 ; Diabetes type 2, controlled E11.9 and Morbid obesity due to excess calories E66.01 [facility] [address] [address]- 0821 Apr, Diabetes type 2, controlled E11.9 and Morbid obesity due to excess calories E66.01 [facility] [address] [address]- 4546 20 Mar, 2017 Diabetes type 2, controlled E11.9 and Morbid obesity due to excess calories E66.01 [facility] [address] [place] [address] 30578- 9602 11 Mar, 2017 Diabetes type 2, controlled E11.9 and Mood disorder F39 [facility] [address] [place] [id number] [place] [address] 07149- 4609 Feb, Morbid obesity due to excess calories E66.01 and Diabetes type 2, controlled E11.9 [place] [address] [address] [id number] [place] [address] 45063- 9902 Jan, Diabetes type 2, controlled E11.9 and Morbid obesity due to excess calories E66.01 [place] [address] [place] [id number] [place] [address] 59138- 5205 Dec, Diabetes type 2, controlled E11.9 and Morbid obesity due to excess calories E66.01 [facility] [address] [id number] [place] [address] 41714- 3606 Dec, Morbid obesity due to excess calories E66.01 [place] [address] [place] [address] [id number] [place] [address] 73693- 4236 November, Diabetes type 2, controlled E11.9 and Morbid obesity due to excess calories E66.01 [place] [address] [place] [id number] [place] [address] 40833- 3018 November, Anxiety F41.9 and Injury of right foot, initial encounter S99.921A [place] [address] [place] [address] [id number] [place] [address] 91021- 0302 November, Diabetes type 2, controlled E11.9 and Morbid obesity due to excess calories E66.01 [facility] [address] [address]- 3027 November, [facility] [address] [address]- 6109 13 Oct, 2016 [facility] [address] [id number] [place] [address] 95368- 6839 Oct, Family history of brain aneurysm Z82.49 and Migraine without aura and without status migrainosus, not intractable G43.009 [facility] [address] [place] [id number] [place] [address] 64272- 4664 Oct, Diabetes type 2, controlled E11.9 [facility] [address] [id number] [place] [address] 98471- 6046 Oct, Morbid obesity due to excess calories E66.01 ; Family history of brain aneurysm Z82.49 and Migraine without aura and without status migrainosus, not intractable G43.009 [facility] [address] [id number] [place] [address] 96570- 5835 Oct, Diabetes type 2, controlled E11.9 and Morbid obesity due to excess calories E66.01 [facility] [address] [id number] [place] [address] 66219- 7900 Sep, [facility] [address] [place] [address] [id number] [place] [address] 37232- 2734 Sep, Diabetes type 2, controlled E11.9 [facility] [address] [place] [id number] [place] [address] 30529- 3695 Sep, Morbid obesity due to excess calories E66.01 [facility] [address] [place] [address] [id number] [place] [address] 26447- 7470 Aug, Exposure to hepatitis C Z20.5 [facility] [address] [place] [address] 13301- 4299 Aug, Diabetes type 2, controlled E11.9 [facility] [address] [place] [address] [id number] [place] [address] 60892- 2001 Jul, Exposure to hepatitis C Z20.5 [facility] [address] [place] [address] [id number] [place] [address] 68553- 8050 Jul, Exposure to hepatitis C Z20.5 [facility] [address] [id number] [place] [address] 49964- 5820 Jul, [facility] [id number] [place] [address] 70856- 1503 Jul, Diabetes type 2, controlled E11.9 [facility] [address] [id number] [place] [address] 09002- 8873 Jun, [facility] [address] [id number] [place] [address] 20993- 8820 Jun, Diabetes type 2, controlled E11.9 ; Pain of left foot M79.672 and Pain in right foot M79.671 [facility] [address] [id number] [place] [address] 56849- 9521 May, [facility] [address] [address] [id number] [place] [address] 39018- 3285 Apr, [facility] [address] [id number] [place] [address] 57784- 4933 Apr, [facility] [address] [place] [address] [id number] [place] [address] 26757- 7590 Mar, [facility] [address] [place] [address] 08148- 2446 Feb, [facility] [address] [place] [id number] [place] [address] 05585- 8587 Feb, [facility] [address] [place] [id number] [place] [address] 16722- 5516 Jan, [facility] [address] [place] [id number] [place] [address] 00312- 6814 Dec, Diabetes type 2, controlled E11.9 ; 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 and Abscess, abdomen K65.1 [facility] [address] [place] [address] 08380- 2534 Dec, Shoulder pain, right 719.41 [facility] [address] [address]- 1302 November, [facility] [address] [place] [address] 34116- 7924 November, [facility] [address] [address]- 3196 Oct, [facility] [address] [place] [address] [id number] [place] [address] 70636- 1475 Sep, [facility] [address] [place] [address] 47856- 7127 Sep, [facility] [address] [id number] [place] [address] 02702 -4301 Aug, [facility] [id number] [address]- 0390 Aug, [facility] [address] [place] [address] 24153- 5950 Aug, Cellulitis, unspecified L03.90 ; Cutaneous abscess, unspecified L02.91 ; Diabetes type 2, controlled E11.9 ; Migraine G43.909 and Bilateral low back pain with sciatica, sciatica laterality unspecified M54.40 [facility] [address] [address] -5300 Aug, Abscess and cellulitis L03.90 [facility] [address] [address]- 2967 Aug, [facility] [address] [address]- 6856 Aug, [facility] [address] [address]- 0291 Jul, [facility] [address] [address]- 5110 Jul, Diabetes type 2, controlled E11.9 [facility] [address] [facility] [id number] [address]- 5775 13 Jul, 2015 Diabetes type 2, controlled E11.9 [facility] [address] [place] [address]- 8753 Jun, Diabetes type 2, controlled E11.9 ; Bilateral low back pain with sciatica, sciatica laterality unspecified M54.40 and Morbid obesity, unspecified obesity type E66.01 [facility] [address] [facility] [id number] [address]- 4948 Jun, [facility] [address] [facility] [id number] [place] [address]- 8593 May, [facility] [address] [place] [address] [id number] [place] [address], [place] [address]- 4085 Apr, [facility] [address] [place] [id number] [place] [address] 03728- 1635 Apr, [facility] [address] [address]- 1669 Apr, [facility] [address] [address]- 5689 Mar, [facility] [address] [place] [address]- 8613 Mar, [facility] [address] [address]- 9917 Mar, [facility] [address] [address]- 4676 Feb, [facility] [address] [facility] [id number] [place] [address]- 1364 Feb, [facility] [address] [address]- 0450 Feb, [facility] [address] [place] [address]- 2826 Feb, [facility] [address] [address] 5586 Feb, Diabetes mellitus without mention of complication, type II or unspecified type, not stated as uncontrolled 250.00 [facility] [address] [address]- 2156 Feb, [facility] [address] [place] [id number] [place] [address] 14561- 7945 Feb, [facility] [address] [place] [id number] [place] [address] 15090- 4381 Jan, Diabetes mellitus without mention of complication, type II or unspecified type, not stated as uncontrolled 250.00 and Cellulitis and abscess 682.9 [facility] [address] [address]- 9798 Jan, [facility] [address] [place] [id number] [place] [address] 81553- 5057 Jan, [facility] [address] [address]- 3127 Jan, [facility] [address] [place] [address] 088516- 5661 Dec, [facility] [address] [address]- 4650 Dec, [facility] [address] [address]- 6467 Dec, [facility] [address] [address]- 3304 November, [facility] [address] 7382 Oct, Shoulder pain, right 719.41 [facility] [address] [address] 2163 Oct, [facility] [address] [address]- 8919 Oct, [facility] [place] [facility] [address] [id number] [place] [address]- 8728 Sep, [facility] [place] [facility] [address] [id number] [place] [address]- 6196 Sep, [facility] [place] [facility] [address] [id number] [place] [address]- 4701 Sep, [facility] [place] [facility] [address] [id number] [place] [address]- 2826 Sep, [facility] [place] [facility] [address] [id number] [place] [address]- 0434 Sep, [facility] [place] [facility] [address] [id number] [place] [address]- 3730 Sep, [facility] [place] [facility] [address] [id number] [place] [address]- 1096 Sep, [facility] [place] [facility] [address] [id number] [place] [address]- 1730 Sep, [facility] [place] [facility] [address] [id number] [place] [address]- 8419 Aug, [facility] [place] [facility] [address] [id number] [place] [address]- 9883 Aug, [facility] [place] [facility] [address] [id number] [place] [address]- 9017 Aug, [facility] [place] [facility] [address] [id number] [place] [address]- 0264 Aug, [facility] [place] [facility] [address] [id number] [place] [address]- 0897 Jul, [facility] [place] [facility] [address] [id number] [place] [address]- 1531 Jul, [facility] [place] [facility] [address] [id number] [place] [address]- 5801 Jul, [facility] [place] [facility] [address] [id number] [address]- 7548 14 Jul, 2014 [facility] [place] [facility] [address] [id number] [place] [address]- 7978 Jul, [facility] [place] [facility] [address] [id number] [place] [address]- 4217 Jul, [facility] [place] [facility] [address] [facility] [id number] [place] [address]- 6131 Jun, [facility] [place] [facility] [address] [id number] [place] [address]- 9977 24 Jun, 2014 [facility] [place] [facility] [address] [id number] [place] [address]- 3353 Jun, [facility] [place] [facility] [address] [id number] [place] [address]- 5441 Jun, [facility] [place] [facility] [address] [facility] [id number] [place] [address]- 1045 18 Jun, 2014 [facility] [place] [facility] [address] [id number] [place] [address]- 6317 18 Jun, 2014 [facility] [place] [facility] [address] [id number] [place] [address]- 9403 15 Jun, 2014 [facility] [place] [facility] [address] [facility] [id number] [place] [address]- 2717 15 Jun, 2014 [facility] [place] [facility] [address] [id number] [place] [address]- 7057 May, [facility] [place] [facility] [address] [id number] [place] [address]- 5907 May, [facility] [place] [facility] [address] [id number] [place] [address]- 7069 18 May, 2014 [facility] [place] [facility] [address] [facility] [id number] [place] [address]- 8435 18 May, 2014 [facility] [place] [facility] [address] [facility] [id number] [place] [address]- 7502 17 May, 2014 [facility] [place] [facility] [address] [id number] [place] [address]- 2010 May, [facility] [place] [facility] [address] [id number] [place] [address]- 2918 Apr, [facility] [place] [facility] [address] [id number] [place] [address]- 9889 Apr, [facility] [place] [facility] [address] [id number] [place] [address]- 9010 Apr, [facility] [place] [facility] [address] [id number] [place] [address]- 5908 Apr, [facility] [place] [facility] [address] [id number] [place] [address]- 0743 Apr, [facility] [place] [facility] [address] [id number] [place] [address]- 9786 Apr, [facility] [place] [facility] [address] [id number] [place] [address]- 2514 Apr, [facility] [place] [facility] [address] [id number] [place] [address]- 2801 Mar, [facility] [place] [facility] [address] [id number] [place] [address]- 2549 Mar, [facility] [place] [facility] [address] [id number] [place] [address]- 0590 Mar, [facility] [place] [facility] [address] [id number] [place] [address]- 8248 Mar, [facility] [place] [facility] [address] [id number] [place] [address]- 2624 Feb, [facility] [place] [facility] [address] [id number] [place] [address]- 5567 Feb, [facility] [place] [facility] [address] [id number] [place] [address]- 1557 Feb, [facility] [place] [facility] [address] [id number] [place] [address]- 3442 Feb, [facility] [place] [facility] [address] [id number] [place] [address]- 1941 Feb, [facility] [place] [facility] [address] [id number] [place] [address]- 0833 Feb, [facility] [place] [facility] [address] [id number] [place] [address]- 9291 Jan, [facility] [place] [facility] [address] [id number] [place] [address]- 9465 Jan, [facility] [place] [facility] [address] [id number] [place] [address]- 2491 Jan, [facility] [place] [facility] [address] [id number] [place] [address]- 1483 Jan, [facility] [place] [facility] [address] [id number] [place] [address]- 9903 Jan, [facility] [place] [facility] [address] [id number] [place] [address]- 9532 Jan, [facility] [place] [facility] [address] [id number] [place] [address]- 1320 Jan, [facility] [place] [facility] [address] [id number] [place] [address]- 3811 Jan, [facility] [place] [facility] [address] [id number] [place] [address]- 4058 Jan, [facility] [place] [facility] [address] [id number] [place] [address]- 9712 Jan, [facility] [place] [facility] [address] [id number] [place] [address]- 1021 Dec, [facility] [place] [facility] [address] [id number] [place] [address]- 7722 Dec, [facility] [place] [facility] [address] [id number] [place] [address]- 4912 Dec, [facility] [place] [facility] [address] [id number] [place] [address]- 0419 Dec, [facility] [place] [facility] [address] [id number] [place] [address]- 0503 November, [facility] [place] [facility] [address] [id number] [place] [address]- 3712 November, [facility] [place] [facility] [address] [id number] [place] [address]- 1073 November, [facility] [place] [facility] [address] [id number] [place] [address]- 7414 November, [facility] [place] [facility] [address] [id number] [place] [address]- 7822 Oct, [facility] [place] [facility] [address] [id number] [place] [address]- 6937 Oct, [facility] [place] [facility] [address] [id number] [place] [address]- 1521 Oct, [facility] [place] [facility] [address] [id number] [place] [address]- 3930 Oct, [facility] [place] [facility] [address] [id number] [place] [address]- 6302 Oct, [facility] [place] [facility] [address] [id number] [place] [address]- 6714 Oct, [facility] [place] [facility] [address] [id number] [place] [address]- 6563 Oct, [facility] [place] [facility] [address] [id number] [place] [address]- 5163 Oct, [facility] [place] [facility] [address] [id number] [place] 7357 Sep, [facility] [place] [facility] [address] [id number] [place] [address]- 3060 Sep, [facility] [place] [facility] [address] [id number] [place] [address]- 1023 Sep, [facility] [place] [facility] [address] [id number] [place] [address]- 7813 Sep, [facility] [place] [facility] [address] [id number] [place] [address]- 3286 Sep, [facility] [place] [facility] [address] [id number] [place] [address]- 6692 Sep, [facility] [place] [facility] [address] [id number] [place] [address]- 7549 Aug, [facility] [place] [facility] [address] [id number] [place] [address]- 0232 Aug, [facility] [place] [facility] [address] [id number] [place] [address]- 4478 Jul, [facility] [place] [facility] [address] [id number] [place] [address]- 0840 Jul, [facility] [place] [facility] [address] [id number] [place] [address]- 4335 Jul, [facility] [place] [facility] [address] [id number] [place] [address] Jul, [facility] [place] [facility] [address] [id number] [place] [address] Jul, [facility] [place] [facility] [address] [id number] [place] [address] Jul, [facility] [place] [facility] [address] [id number] [place] [address] Jul, [facility] [place] [facility] [address] [id number] [place] [address] Jul, [facility] [place] [facility] [address] [id number] [place] [address] Jun, [facility] [place] [facility] [address] [id number] [place] [address] Jun, [facility] [place] [facility] [address] [id number] [place] [address] May, [facility] [place] [facility] [address] [id number] [place] [address] May, [facility] [place] [facility] [address] [id number] [place] [address] Apr, [facility] [place] [facility] [address] [id number] [place] [address] Apr, [facility] [place] [facility] [address] [id number] [place] [address] Apr, [facility] [place] [facility] [address] [id number] [place] [address] Apr, [facility] [place] [facility] [address] [id number] [place] [address] Apr, [facility] [place] [facility] [address] [id number] [place] [address] Apr, [facility] [place] [facility] [address] [id number] [place] [address] Apr, [facility] [place] [facility] [address] [id number] [place] [address] Apr, [facility] [place] [facility] [address] [id number] [place] [address] Apr, [facility] [place] [facility] [address] [id number] [place] [address] Apr, [facility] [place] [facility] [address] [id number] [place] [address] Apr, [facility] [place] [facility] [address] [id number] [place] [address] Apr, [facility] [place] [facility] [address] [id number] [place] [address] Apr, [facility] [place] [facility] [address] [id number] [place] [address] Apr, [facility] [place] [facility] [address] [id number] [place] [address] 02 Apr, 2013 [facility] [address] [id number] [place] [address] 27 Mar, 2012 [facility] [place] [facility] [address] [id number] [place] [address] 27 Mar, 2012 [facility] [place] [facility] [address] [id number] [place] [address] 26 Mar, 2012 [facility] [place] [facility] [address] [id number] [place] [address] 25 Mar, 2012 [facility] [place] [facility] [address] [id number] [place] [address] 16 Mar, 2013 [facility] [place] [facility] [address] [id number] [place] [address] Mar, [facility] [place] [facility] [address] [id number] [place] [address] Jan, [facility] [address] [id number] [place] [address] Jan, [facility] [place] [facility] [address] [id number] [place] [address] Jan, [facility] [address] [id number] [place] [address] Dec, [facility] [place] [facility] [address] [id number] [place] [address] Oct, [facility] [place] [facility] [address] [id number] [place] [address] May, [facility] [place] [facility] [address] [id number] [place] [address] May, [facility] [place] [facility] [address] [id number] [place] [address] 05 Jun, 2011 [facility] [place] [facility] [address] [id number] [place] [address] May, [facility] [place] [facility] [address] [id number] [place] [address] 11 May, 2011 [facility] [place] [facility] [address] [id number] [place] [address] 03 May, 2011 [facility] [place] [facility] [address] [id number] [place] [address] 14 Apr, 2011 [facility] [place] [facility] [address] [id number] [place] [address] 13 Apr, 2011 [facility] [place] [facility] [address] [id number] [place] [address] 17 Feb, 2011 [facility] [place] [facility] [address] [id number] [place] [address] 16 Feb, 2011 [facility] [place] [facility] [address] [id number] [place] [address] 10 Dec, 2010 [facility] [place] [facility] [address] [id number] [place] [address] 12 Oct, 2010 [facility] [place] [facility] [address] [id number] [place] [address] Sep, [facility] [place] [facility] [address] [id number] [place] [address] 10 Sep, 2010 [facility] [place] [facility] [address] [id number] [place] [address] 20 Jul, 2010 [facility] [place] [facility] [address] [id number] [place] [address] 11 Jul, 2010 [facility] [place] [facility] [address] [id number] [place] [address] 28 Jun, 2010 [facility] [place] [facility] [address] [id number] [place] [address] 23 Jun, 2010 [facility] [place] [facility] [address] [id number] [place] [address] 14 Jun, 2010 [facility] [place] [facility] [address] [id number] [place] [address] 14 Jun, 2010 [facility] [address] [id number] [place] [address] 08 Jun, 2010 [facility] [place] [facility] [address] [id number] [place] [address] 30 May, 2010 [facility] [place] [facility] [address] [id number] [place] [address] 23 May, 2010 [facility] [place] [facility] [address] [id number] [place] [address] 65[address] 17 May, 2010 [facility] [place] [facility] [address] [id number] [place] [address] 9085 17 May, 2010 [facility] [place] [facility] [address] [id number] [place] [address] 1387 17 May, 2010 [facility] [address] [id number] [place] [address] 64[address] 17 May, 2010 [facility] [place] [facility] [address] [id number] [place] [address] 23 Apr, 2010 [facility] [place] [facility] [address] [id number] [place] [address] 7099 14 Apr, 2010 [facility] [place] [facility] [address] [facility] [id number] [place] [address] 10 Mar, 2010 [facility] [place] [facility] [address] [id number] [place] [address] 10 Feb, 2010 [facility] [place] [facility] [address] [id number] [place] [address] 2546 17 Sep, 2009 [facility] [place] [facility] [address] [id number] [place] [address] Sep, [facility] [place] [facility] [address] [id number] [place] [address] 2016 18 Aug, 2009 [facility] [place] [facility] [address] [id number] [place] [address] 09 Jun, 2009 [facility] [address] [facility] [id number] [place] [address] Jun, [facility] [address] [facility] [id number] [place] [address] May, [facility] [address] [facility] [id number] [place] [address] Dec, [facility] [address] [facility] [id number] [place] [address] Sep, IMMUNIZATIONS No Known Immunizations SOCIAL HISTORY Never Assessed REASON FOR VISIT statin PLAN OF CARE VITAL SIGNS MEDICATIONS Medication Instructions Dosage Frequency Start Date End Date Duration Status Simvastatin 20 mg Orally Once a day 1 tablet in the evening 24h Jul, 30 day(s) Active RESULTS No Results PROCEDURES [...]
--- OUTSIDE RECORDS SUMMARY | 2018-06-27 07:35 | XMS REPORT ---
Author Author ARABELLA DIXON Organization [facility] Address [address] [place] [address] Care Team Providers Care Windows System Admin Name Role Phone ARABELLA DIXON Unavailable PROBLEMS Type Condition ICD9-CM Code HUC22-ZH Code Onset Dates Condition Status SNOMED Code Problem Obstructive sleep apnea syndrome G47.33 Active 20361131 Problem High risk medications (not anticoagulants) long-term use Z79.899 Active 172220478 Problem Essential hypertension I10 Active 17481067 Problem Mood disorder F39 Active 63914093 Problem Morbid obesity due to excess calories E66.01 Active 401957357 Problem Diabetes type 2, controlled E11.9 Active 97327922 Problem Anxiety F41.9 Active 56886196 Problem Migraine without aura and without status migrainosus, not intractable G43.009 Active 793593371 ALLERGIES No Information ENCOUNTERS Encounter Location Date Diagnosis [place] [id number] [place] [address] 52976- 7207 Jan, [place] [address] [place] [id number] [place] [address] 42962- 1458 Dec, Diabetes type 2, controlled E11.9 [place] [id number] [place] [address] 68403- 5831 Dec, Morbid obesity due to excess calories E66.01 ; Essential hypertension I10 ; Tobacco abuse Z72.0 and Tobacco abuse counseling Z71.6 [place] [id number] [place] [address] 93598- 9678 November, Diabetes type 2, controlled E11.9 [place] [address] [place] [id number] [place] [address] 16207- 5815 Oct, Diabetes type 2, controlled E11.9 [place] [address] [place] [id number] [place] [address] 30759- 3543 Sep, Diabetes type 2, controlled E11.9 [facility] [address], [place] [address]- 2669 Sep, [facility] [address] [place] [id number] [place] [address] 443983- 9245 Aug, Diabetes type 2, controlled E11.9 and Morbid obesity due to excess calories E66.01 [facility] [address] [place] [address] [id number] [place] [address] 65694- 3735 Jul, Anxiety F41.9 [facility] [address] [place] [address] [id number] [place] [address] 71210- 8401 Jul, [place] [address] [place] [address] [id number] [place] [address] 52356- 0324 Jul, Anxiety F41.9 ; Mood disorder F39 ; Morbid obesity due to excess calories E66.01 and Diabetes type 2, controlled E11.9 [place] [address] [place] [address] [id number] [place] [address] 83903- 8240 Jun, Anxiety F41.9 [facility] [id number] [place] [address] 75058- 4927 Jun, Anxiety F41.9 ; Morbid obesity due to excess calories E66.01 and Diabetes type 2, controlled E11.9 [place] [address] [address]- 8118 May, Migraine without aura and without status migrainosus, not intractable G43.009 ; Diabetes type 2, controlled E11.9 and Morbid obesity due to excess calories E66.01 [facility] [address], [place] [address]- 1758 Apr, Migraine without aura and without status migrainosus, not intractable G43.009 ; Diabetes type 2, controlled E11.9 and Morbid obesity due to excess calories E66.01 [facility] [address], [place] [address]- 3265 Apr, Diabetes type 2, controlled E11.9 and Morbid obesity due to excess calories E66.01 [facility] [address], [place] [address]- 3800 20 Mar, 2017 Diabetes type 2, controlled E11.9 and Morbid obesity due to excess calories E66.01 [facility] [id number] [place] [address] 27196- 0327 11 Mar, 2017 Diabetes type 2, controlled E11.9 and Mood disorder F39 [facility] [address] [place] [address] [id number] [place] [address] 29497- 5496 Feb, Morbid obesity due to excess calories E66.01 and Diabetes type 2, controlled E11.9 [place] [address] [place] [id number] [place] [address] 10403- 0107 Jan, Diabetes type 2, controlled E11.9 and Morbid obesity due to excess calories E66.01 [place] [address] [place] [id number] [place] [address] 20325- 1218 Dec, Diabetes type 2, controlled E11.9 and Morbid obesity due to excess calories E66.01 [facility] [address] [place] [address] [id number] [place] [address] 47410- 6300 Dec, Morbid obesity due to excess calories E66.01 [place] [address] [place] [address] [id number] [place] [address] 89273- 5019 November, Diabetes type 2, controlled E11.9 and Morbid obesity due to excess calories E66.01 [place] [address] [place] [id number] [place] [address] 36345- 9457 November, Anxiety F41.9 and Injury of right foot, initial encounter S99.921A [place] [address] [place] [id number] [place] [address] 46570- 0750 November, Diabetes type 2, controlled E11.9 and Morbid obesity due to excess calories E66.01 [facility] [address], [place] [address]- 6249 November, [facility] [id number] [address]- 3455 13 Oct, 2016 [facility] [address] [place] [address] [id number] [place] [address] 26853- 8092 Oct, Family history of brain aneurysm Z82.49 and Migraine without aura and without status migrainosus, not intractable G43.009 [facility] [address] [place] [address] [id number] [place] [address] 71057- 2695 Oct, Diabetes type 2, controlled E11.9 [facility] [address] [place] [address] [id number] [place] [address] 14125- 0812 Oct, Morbid obesity due to excess calories E66.01 ; Family history of brain aneurysm Z82.49 and Migraine without aura and without status migrainosus, not intractable G43.009 [facility] [address] [place] [address] [id number] [place] [address] 79413- 3226 Oct, Diabetes type 2, controlled E11.9 and Morbid obesity due to excess calories E66.01 [facility] [address] [place] [address] [id number] [place] [address] 21404- 5082 Sep, [facility] [address] [place] [id number] [place] [address] 08007- 9709 Sep, Diabetes type 2, controlled E11.9 [facility] [address] [place] [id number] [place] [address] 60336- 4050 Sep, Morbid obesity due to excess calories E66.01 [facility] [address] [place] [id number] [place] [address] 72688- 8513 Aug, Exposure to hepatitis C Z20.5 [facility] [id number] [place] [address] 00896- 2544 Aug, Diabetes type 2, controlled E11.9 [facility] [address] [place] [id number] [place] [address] 07148- 8120 Jul, Exposure to hepatitis C Z20.5 [facility] [address] [place] [id number] [place] [address] 96381- 6919 Jul, Exposure to hepatitis C Z20.5 [facility] [address] [place] [id number] [place] [address] 94756- 7811 Jul, [facility] [address] [place] [id number] [place] [address] 65728- 7154 Jul, Diabetes type 2, controlled E11.9 [facility] [address] [place] [id number] [place] [address] 36809- 4314 Jun, [facility] [address] [place] [id number] [place] [address] 59002- 3955 Jun, Diabetes type 2, controlled E11.9 ; Pain of left foot M79.672 and Pain in right foot M79.671 [facility] [address] [place] [id number] [place] [address] 65148- 5029 May, [facility] [address] [place] [id number] [place] [address] 69387- 6006 Apr, [facility] [address] [place] [id number] [place] [address] 06126- 6212 Apr, [facility] [address] [place] [id number] [place] [address] 63927- 4695 Mar, [facility] [id number] [place] [address] 70887- 8054 Feb, [facility] [address] [place] [id number] [place] [address] 58197- 6458 Feb, [facility] [address] [place] [address] [id number] [place] [address] 86868- 3202 Jan, [facility] [address] [place] [id number] [place] [address] 12899- 0735 Dec, Diabetes type 2, controlled E11.9 ; 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 and Abscess, abdomen K65.1 [facility] [id number] [place] [address] 45416- 0195 Dec, Shoulder pain, right 719.41 [facility] [id number], [place] [address]- 9105 November, [facility] [id number] [place] [address] 81621- 7863 November, [facility] [id number], [place] [address]- 7986 Oct, [facility] [address] [place] [address] [id number] [place] [address] 19774- 9661 Sep, [facility] [id number] [place] [address] 54353- 9708 Sep, [facility] [address] [place] [id number] [place] [address] 68060 -5247 Aug, [facility] [address] [id number] [address]- 9634 Aug, [facility] [id number] [place] [address] 61732- 0940 Aug, Cellulitis, unspecified L03.90 ; Cutaneous abscess, unspecified L02.91 ; Diabetes type 2, controlled E11.9 ; Migraine G43.909 and Bilateral low back pain with sciatica, sciatica laterality unspecified M54.40 [facility] [id number], [place] [address] -8920 Aug, Abscess and cellulitis L03.90 [facility] [id number] [address]- 6612 Aug, [facility] [id number], [place] [address]- 6101 Aug, [facility] [id number] [address]- 5755 Jul, [facility] [id number], [place] [address]- 9740 Jul, Diabetes type 2, controlled E11.9 [facility] [address] [facility] [id number] [address]- 5270 13 Jul, 2015 Diabetes type 2, controlled E11.9 [facility] [id number] [place] [address]- 6890 Jun, Diabetes type 2, controlled E11.9 ; Bilateral low back pain with sciatica, sciatica laterality unspecified M54.40 and Morbid obesity, unspecified obesity type E66.01 [facility] [address] [facility] [id number] [address]- 7488 Jun, [facility] [address] [facility] [id number] [place] [address]- 2194 May, [facility] [address] [place] [id number] [place] [address], [place] [address]- 4485 Apr, [facility] [address] [place] [id number] [place] [address] 11953- 8247 Apr, [facility] [id number], [place] [address]- 3810 Apr, [facility] [id number], [place] [address]- 4839 Mar, [facility] [id number] [place] [address]- 9270 Mar, [facility] [id number], [place] [address]- 9253 Mar, [facility] [id number], [place] [address]- 3807 Feb, [facility] [address] [facility] [id number], [place] [address]- 9559 Feb, [facility] [id number], [place] [address]- 9260 Feb, [facility] [id number] [place] [address]- 7436 Feb, [facility] [id number] [address] 3144 Feb, Diabetes mellitus without mention of complication, type II or unspecified type, not stated as uncontrolled 250.00 [facility] [id number], [place] [address]- 2400 Feb, [facility] [address] [place] [id number] [place] [address] 85747- 1368 Feb, [facility] [address] [place] [address] [id number] [place] [address] 23686- 7376 Jan, Diabetes mellitus without mention of complication, type II or unspecified type, not stated as uncontrolled 250.00 and Cellulitis and abscess 682.9 [facility] [id number], [place] [address]- 2932 Jan, [facility] [address] [place] [id number] [place] [address] 27420- 7807 Jan, [facility] [id number], [place] [address]- 3575 Jan, [facility] [id number] [place] [address] 268843- 1675 Dec, [facility] [id number], [place] [address]- 7089 Dec, [facility] [id number], [place] [address]- 4940 Dec, [facility] [id number], [place] [address]- 5375 November, [facility] [id number] 8368 Oct, Shoulder pain, right 719.41 [facility] [id number] [address]- 8191 Oct, [facility] [address], [place] [address]- 2913 Oct, [facility] [place] [facility] [address] [id number] [place] [address]- 4410 Sep, [facility] [place] [facility] [address] [id number] [place] [address]- 3903 Sep, [facility] [place] [facility] [address] [id number] [place] [address]- 9513 Sep, [facility] [place] [facility] [address] [id number] [place] [address]- 6741 Sep, [facility] [place] [facility] [address] [id number] [place] [address]- 5212 Sep, [facility] [place] [facility] [address] [id number] [place] [address]- 0940 Sep, [facility] [place] [facility] [address] [id number] [place] [address]- 0436 Sep, [facility] [place] [facility] [address] [id number] [place] [address]- 5612 Sep, [facility] [place] [facility] [address] [id number] [place] [address]- 0440 Aug, [facility] [place] [facility] [address] [id number] [place] [address]- 3445 Aug, [facility] [place] [facility] [address] [id number] [place] [address]- 6589 Aug, [facility] [place] [facility] [address] [id number], [place] [address]- 6383 Aug, [facility] [place] [facility] [address] [id number] [place] [address]- 2686 Jul, [facility] [place] [facility] [address] [id number] [place] [address]- 5746 Jul, [facility] [place] [facility] [address] [id number], [place] [address]- 7530 Jul, [facility] [place] [facility] [address] [id number], [place] [address]- 6107 14 Jul, 2014 [facility] [place] [facility] [address] [id number] [place] [address]- 5462 Jul, [facility] [place] [facility] [address] [id number] [place] [address]- 4346 Jul, [facility] [place] [facility] [address] [facility] [id number] [place] [address]- 7876 Jun, [facility] [place] [facility] [address] [id number] [place] [address]- 3941 24 Jun, 2014 [facility] [place] [facility] [address] [id number] [place] [address]- 6222 Jun, [facility] [place] [facility] [address] [id number] [place] [address]- 2264 Jun, [facility] [place] [facility] [address] [facility] [id number] [place] [address]- 8535 18 Jun, 2014 [facility] [place] [facility] [address] [id number] [place] [address]- 9909 18 Jun, 2014 [facility] [place] [facility] [address] [id number] [place] [address]- 5876 15 Jun, 2014 [facility] [place] [facility] [address] [facility] [id number] [place] [address]- 7594 15 Jun, 2014 [facility] [place] [facility] [address] [id number] [place] [address]- 3080 May, [facility] [place] [facility] [address] [id number], [place] [address]- 6939 May, [facility] [place] [facility] [address] [id number] [place] [address]- 3770 18 May, 2014 [facility] [place] [facility] [address] [facility] [id number] [place] [address]- 6498 18 May, 2014 [facility] [place] [facility] [address] [facility] [id number] [place] [address]- 1700 17 May, 2014 [facility] [place] [facility] [address] [id number] [place] [address]- 5972 May, [facility] [place] [facility] [address] [id number] [place] [address]- 1388 Apr, [facility] [place] [facility] [address] [id number] [place] [address]- 1205 Apr, [facility] [place] [facility] [address] [id number] [place] [address]- 2499 Apr, [facility] [place] [facility] [address] [id number] [place] [address]- 2440 Apr, [facility] [place] [facility] [address] [id number] [place] [address]- 9770 Apr, [facility] [place] [facility] [address] [id number] [place] [address]- 1270 Apr, [facility] [place] [facility] [address] [id number] [place] [address]- 9025 Apr, [facility] [place] [facility] [address] [id number] [place] [address]- 3458 Mar, [facility] [place] [facility] [address] [id number] [place] [address]- 4757 Mar, [facility] [place] [facility] [address] [id number] [place] [address]- 4952 Mar, [facility] [place] [facility] [address] [id number] [place] [address]- 0032 Mar, [facility] [place] [facility] [address] [id number] [place] [address]- 0442 Feb, [facility] [place] [facility] [address] [id number] [place] [address]- 9001 Feb, [facility] [place] [facility] [address] [id number] [place] [address]- 4635 Feb, [facility] [place] [facility] [address] [id number] [place] [address]- 0914 Feb, [facility] [place] [facility] [address] [id number] [place] [address]- 3585 Feb, [facility] [place] [facility] [address] [id number] [place] [address]- 2491 Feb, [facility] [place] [facility] [address] [id number] [place] [address]- 8524 Jan, [facility] [place] [facility] [address] [id number] [place] [address]- 3732 Jan, [facility] [place] [facility] [address] [id number] [place] [address]- 5751 Jan, [facility] [place] [facility] [address] [id number] [place] [address]- 3873 Jan, [facility] [place] [facility] [address] [id number] [place] [address]- 9599 Jan, [facility] [place] [facility] [address] [id number] [place] [address]- 5647 Jan, [facility] [place] [facility] [address] [id number] [place] [address]- 5944 Jan, [facility] [place] [facility] [address] [id number] [place] [address]- 1381 Jan, [facility] [place] [facility] [address] [id number] [place] [address] Jan, [facility] [place] [facility] [address] [id number] [place] [address] Jan, [facility] [place] [facility] [address] [id number] [place] [address] Dec, [facility] [place] [facility] [address] [id number] [place] [address] Dec, [facility] [place] [facility] [address] [id number] [place] [address] Dec, [facility] [place] [facility] [address] [id number] [place] [address] Dec, [facility] [place] [facility] [address] [id number] [place] [address] November, [facility] [place] [facility] [address] [id number] [place] [address] November, [facility] [place] [facility] [address] [id number] [place] [address] 58[address] November, [facility] [place] [facility] [address] [id number] [place] [address]- [address] November, [facility] [place] [facility] [address] [id number] [place] [address] 84[address] Oct, [facility] [place] [facility] [address] [id number] [place] [address] Oct, [facility] [place] [facility] [address] [id number] [place] [address] 269[address] Oct, [facility] [place] [facility] [address] [id number] [place] [address]- 280[address] Oct, [facility] [place] [facility] [address] [id number] [place] [address]- 59[address] Oct, [facility] [place] [facility] [address] [id number] [place] [address]- 4464 Oct, [facility] [place] [facility] [address] [id number] [place] [address]- 1586 Oct, [facility] [place] [facility] [address] [id number] [place] [address]- [address]183 Oct, [facility] [place] [facility] [address] [id number] [place] [address] Sep, [facility] [place] [facility] [address] [id number] [place] [address]- 9718 Sep, [facility] [place] [facility] [address] [id number] [place] [address]- 1597 Sep, [facility] [place] [facility] [address] [id number] [place] [address]- [address] Sep, [facility] [place] [facility] [address] [id number] [place] [address]- [address]30 Sep, [facility] [place] [facility] [address] [id number] [place] [address]- [address] Sep, [facility] [place] [facility] [address] [id number] [place] [address] 1907 Aug, [facility] [place] [facility] [address] [id number] [place] [address]- [address]60 Aug, [facility] [place] [facility] [address] [id number] [place] [address]648 Jul, [facility] [place] [facility] [address] [id number] [place] [address] 37[address] Jul, [facility] [place] [facility] [address] [id number] [place] [address]- 44[address] Jul, [facility] [place] [facility] [address] [id number] [place] [address] Jul, [facility] [place] [facility] [address] [id number] [place] [address]- 77[address] Jul, [facility] [place] [facility] [address] [id number] [place] [address] 8916 Jul, [facility] [place] [facility] [address] [id number] [place] [address] Jul, [facility] [place] [facility] [address] [id number] [place] [address] Jul, [facility] [place] [facility] [address] [id number] [place] [address] Jun, [facility] [place] [facility] [address] [id number] [place] [address] Jun, [facility] [place] [facility] [address] [id number], [place] [address] May, [facility] [place] [facility] [address] [id number] [place] [address]- [address] May, [facility] [place] [facility] [address] [id number] [place] [address]- [address] Apr, [facility] [place] [facility] [address] [id number] [place] [address]- [address]324 Apr, [facility] [place] [facility] [address] [id number] [place] [address]- 2771 Apr, [facility] [place] [facility] [address] [id number] [place] [address]- 2981 Apr, [facility] [place] [facility] [address] [id number] [place] [address] 8848 Apr, [facility] [place] [facility] [address] [id number], [place] [address]- [address] Apr, [facility] [place] [facility] [address] [id number] [place] [address]- 1104 Apr, [facility] [place] [facility] [address] [id number] [place] [address]- 3031 Apr, [facility] [place] [facility] [address] [id number], [place] [address] 117[address] Apr, [facility] [place] [facility] [address] [id number], [place] [address]- [address] Apr, [facility] [place] [facility] [address] [id number], [place] [address] Apr, [facility] [place] [facility] [address] [id number], [place] [address]- [address] Apr, [facility] [place] [facility] [address] [id number], [place] [address]- 96[address] Apr, [facility] [place] [facility] [address] [id number] [place] [address]- 60[address] Apr, [facility] [place] [facility] [address] [id number] [place] [address]- [address]87 02 Apr, 2013 [facility] [address] [id number] [place] [address]- [address] 27 Mar, 2012 [facility] [place] [facility] [address] [id number] [place] [address] 27 Mar, 2012 [facility] [place] [facility] [address] [id number] [place] [address] 26 Mar, 2012 [facility] [place] [facility] [address] [id number] [place] [address] 25 Mar, 2012 [facility] [place] [facility] [address] [id number] [place] [address] 16 Mar, 2013 [facility] [place] [facility] [address] [id number] [place] [address] Mar, [facility] [place] [facility] [address] [id number] [place] [address] Jan, [facility] [address] [id number] [place] [address] Jan, [facility] [place] [facility] [address] [id number] [place] [address] Jan, [facility] [address] [id number] [place] [address] Dec, [facility] [place] [facility] [address] [id number] [place] [address] Oct, [facility] [place] [facility] [address] [id number] [place] [address] May, [facility] [place] [facility] [address] [id number] [place] [address] May, [facility] [place] [facility] [address] [id number] [place] [address] 05 Jun, 2011 [facility] [place] [facility] [address] [id number] [place] [address] May, [facility] [place] [facility] [address] [id number] [place] [address]6 11 May, 2011 [facility] [place] [facility] [address] [id number] [place] [address] 03 May, 2011 [facility] [place] [facility] [address] [id number] [place] [address] 14 Apr, 2011 [facility] [place] [facility] [address] [id number] [place] [address] 13 Apr, 2011 [facility] [place] [facility] [address] [id number] [place] [address] 17 Feb, 2011 [facility] [place] [facility] [address] [id number] [place] [address] 16 Feb, 2011 [facility] [place] [facility] [address] [id number] [place] [address] 10 Dec, 2010 [facility] [place] [facility] [address] [id number] [place] [address] 12 Oct, 2010 [facility] [place] [facility] [address] [id number] [place] [address] Sep, [facility] [place] [facility] [address] [id number] [place] [address] 10 Sep, 2010 [facility] [place] [facility] [address] [id number] [place] [address] 20 Jul, 2010 [facility] [place] [facility] [address] [id number] [place] [address] 11 Jul, 2010 [facility] [place] [facility] [address] [id number] [place] [address] 97[address] 28 Jun, 2010 [facility] [place] [facility] [address] [id number] [place] [address] 23 Jun, 2010 [facility] [place] [facility] [address] [id number] [place] [address] 14 Jun, 2010 [facility] [place] [facility] [address] [id number] [place] [address] 14 Jun, 2010 [facility] [address] [id number] [place] [address] 08 Jun, 2010 [facility] [place] [facility] [address] [id number] [place] [address] 30 May, 2010 [facility] [place] [facility] [address] [id number] [place] [address] 23 May, 2010 [facility] [place] [facility] [address] [id number] [place] [address] 17 May, 2010 [facility] [place] [facility] [address] [id number] [place] [address] 17 May, 2010 [facility] [place] [facility] [address] [id number] [place] [address] 1102 17 May, 2010 [facility] [address] [id number] [place] [address] 17 May, 2010 [facility] [place] [facility] [address] [id number] [place] [address] 23 Apr, 2010 [facility] [place] [facility] [address] [id number] [place] [address] 14 Apr, 2010 [facility] [place] [facility] [address] [facility] [id number] [place] [address] 10 Mar, 2010 [facility] [place] [facility] [address] [id number] [place] [address] 10 Feb, 2010 [facility] [place] [facility] [address] [id number] [place] [address] 2546 17 Sep, 2009 [facility] [place] [facility] [address] [id number] [place] [address] Sep, [facility] [place] [facility] [address] [id number] [place] [address] 18 Aug, 2009 [facility] [place] [facility] [address] [id number], [place] [address] 09 Jun, 2009 [facility] [address] [facility] [id number], [place] [address] Jun, [facility] [address] [facility] [id number], [place] [address] May, [facility] [address] [facility] [id number], [place] [address] Dec, [facility] [address] [facility] [id number], [place] [address] Sep, IMMUNIZATIONS No Known Immunizations SOCIAL HISTORY Never Assessed REASON FOR VISIT Controlled Med Refill 07/13/17 PLAN OF CARE VITAL SIGNS MEDICATIONS Medication Instructions Dosage Frequency Start Date End Date Duration Status Dextroamphetamine Sulfate 10 MG Orally Three times a day 2 tablets 8h Jun, 28 days Active Corinth 5-325 MG Orally 3 times a day 1 tablet as needed 8h Jun, Jul, 28 days Active Xanax 1 MG Orally Twice a day 1 tablet 12h Jun, Active RESULTS No Results PROCEDURES No Known [...]
[2018-06-27] MEDS ORDERED: LIDOCAINE 1% INJ 20 ML 20 ML VIAL ONE (07:36)
[2018-06-27] MEDS ORDERED: cefTRIAXone 1 GM/10 ML for IV (ROCEPHIN) ONE (07:36)
--- OUTSIDE RECORDS SUMMARY | 2018-06-27 07:36 | XMS REPORT ---
Author ARABELLA Elliott Organization [employer] Address Unknown Phone Unavailable Care Team Providers Care Stone Grader Name Role Phone ARABELLA DIXON CP Unavailable [...] Instructions Start Date End Date Status Dosage Blood Glucose Monitor System [facility] [address] w/Device Please dispense one touch ultra per pt insurance. DX: E11.9 Aug 23, 2015 as directed Blood Glucose Test Strip ND 0 TID. One Touch Ultra per insurance. DX: E119 Aug 23, 2015 as directed Results No Known Results Summary Purpose [employer] Submission
--- OUTSIDE RECORDS SUMMARY | 2018-06-27 07:36 | XMS REPORT ---
Author Author ARABELLA DIXON [facility] Address [address] [place] [address] Care Team Providers Care Rest Room Maid Name Role Phone ARABELLA DIXON Unavailable PROBLEMS Type Condition ICD9-CM Code UMF85-QB Code Onset Dates Condition Status SNOMED Code Problem Anxiety F41.9 Active 84069202 Problem Migraine without aura and without status migrainosus, not intractable G43.009 Active 313309833 Problem Obstructive sleep apnea syndrome G47.33 Active 39649876 Problem High risk medications (not anticoagulants) long-term use Z79.899 Active 674697282 Problem Morbid obesity due to excess calories E66.01 Active 567309893 Problem Diabetes type 2, controlled E11.9 Active 94398923 ALLERGIES Unknown Allergies SOCIAL HISTORY No smoking Hx information available PLAN OF CARE VITAL SIGNS MEDICATIONS Medication Instructions Dosage Frequency Start Date End Date Duration Status Mingo 5-325 MG Orally 4 times a day 1 tablet as needed 6h Jul, 28 days Active Dextroamphetamine Sulfate 10 mg Orally Three times a day 2 tablets 8h Jul, 28 days Active RESULTS No Results PROCEDURES No Known procedures IMMUNIZATIONS No Known Immunizations
--- OUTSIDE RECORDS SUMMARY | 2018-06-27 07:36 | XMS REPORT ---
Author Author ARABELLA DIXON Organization [facility] Address [address] [place] [address] Care Team Providers Care Computer Science Instructor Name Role Phone ZACK ARABELLA Unavailable PROBLEMS Type Condition ICD9-CM Code NQO56-TC Code Onset Dates Condition Status SNOMED Code Problem High risk medications (not anticoagulants) long-term use Z79.899 Active 733319713 Problem Mood disorder F39 Active 34683282 Problem Anxiety F41.9 Active 44319641 Problem Diabetes type 2, controlled E11.9 Active 26108617 Problem Obstructive sleep apnea syndrome G47.33 Active 21087368 Problem Migraine without aura and without status migrainosus, not intractable G43.009 Active 794086023 Problem Morbid obesity due to excess calories E66.01 Active 941539110 ALLERGIES Unknown Allergies SOCIAL HISTORY No smoking Hx information available PLAN OF CARE VITAL SIGNS MEDICATIONS Unknown Medications RESULTS Name Result Date Reference Range HEP C ANTIBODY (STATE) 2016-08-08 RESULTS PROCEDURES Procedure Date Ordered Related Diagnosis Body Site No Charge Aug 08, 2016 VENIPUNCT, ROUTINE* Aug 08, 2016 IMMUNIZATIONS No Known Immunizations
--- OUTSIDE RECORDS SUMMARY | 2018-06-27 07:36 | XMS REPORT ---
Author Author ARABELLA DIXON Organization [facility] Address [address] [place] [address] Care Team Providers Care Sr. Vendor Management Associate Name Role Phone ARABELLA DIXON Unavailable PROBLEMS Type Condition ICD9-CM Code SIH14-CV Code Onset Dates Condition Status SNOMED Code Problem Obstructive sleep apnea syndrome G47.33 Active 79452800 Problem High risk medications (not anticoagulants) long-term use Z79.899 Active 835272079 Problem Essential hypertension I10 Active 95061871 Problem Mood disorder F39 Active 73580723 Problem Morbid obesity due to excess calories E66.01 Active 779670263 Problem Diabetes type 2, controlled E11.9 Active 96654096 Problem Anxiety F41.9 Active 56037028 Problem Migraine without aura and without status migrainosus, not intractable G43.009 Active 912723181 ALLERGIES Substance Reaction Event Type Date Status Wellbutrin Unknown Drug Allergy Jul, Active Effexor increases depression -JCriserRN Drug Allergy Jul, Active ENCOUNTERS Encounter Location Date Diagnosis [place] [id number] [place] [address] 93905- 1734 Jan, [place] [address] [place] [id number] [place] [address] 37363- 1942 Dec, Diabetes type 2, controlled E11.9 [place] [address] [id number] [place] [address] 58697- 8446 Dec, Morbid obesity due to excess calories E66.01 ; Essential hypertension I10 ; Tobacco abuse Z72.0 and Tobacco abuse counseling Z71.6 [place] [id number] [place] [address] 23154- 4778 November, Diabetes type 2, controlled E11.9 [place] [id number] [place] [address] 64018- 9969 Oct, Diabetes type 2, controlled E11.9 [facility] [address] [address]- 0975 Sep, Diabetes type 2, controlled E11.9 [facility] [address] [address]- 9536 Sep, [facility] [address] [place] [id number] [place] [address] 80210- 4599 Aug, Diabetes type 2, controlled E11.9 and Morbid obesity due to excess calories E66.01 [facility] [address] [address]- 6090 Jul, Anxiety F41.9 [facility] [address] [id number] [place] [address] 15827- 2637 Jul, [facility] [address] [place] [id number] [place] [address] 09964- 5280 Jul, Anxiety F41.9 ; Mood disorder F39 ; Morbid obesity due to excess calories E66.01 and Diabetes type 2, controlled E11.9 [facility] [address] [address] 3630 Jun, Anxiety F41.9 [facility] [address] [address]- 2701 Jun, Anxiety F41.9 ; Morbid obesity due to excess calories E66.01 and Diabetes type 2, controlled E11.9 [facility] [address] [address]- 0798 May, Migraine without aura and without status migrainosus, not intractable G43.009 ; Diabetes type 2, controlled E11.9 and Morbid obesity due to excess calories E66.01 [facility] [address] [address]- 4721 Apr, Migraine without aura and without status migrainosus, not intractable G43.009 ; Diabetes type 2, controlled E11.9 and Morbid obesity due to excess calories E66.01 [facility] [address] [address]- 0090 Apr, Diabetes type 2, controlled E11.9 and Morbid obesity due to excess calories E66.01 [place] [address] [place] [address] 88629- 5711 Mar, Diabetes type 2, controlled E11.9 and Morbid obesity due to excess calories E66.01 [place] [address] [place] [id number] [place] [address] 63972- 7197 Mar, Diabetes type 2, controlled E11.9 and Mood disorder F39 [place] [address] [place] [id number] [place] [address] 14048- 3921 Feb, Morbid obesity due to excess calories E66.01 and Diabetes type 2, controlled E11.9 [place] [address] [place] [id number] [place] [address] 97944- 4209 Jan, Diabetes type 2, controlled E11.9 and Morbid obesity due to excess calories E66.01 [place] [address] [place] [address] 31652- 1361 Dec, Diabetes type 2, controlled E11.9 and Morbid obesity due to excess calories E66.01 [place] [address] [place] [address] 12531- 3014 Dec, Morbid obesity due to excess calories E66.01 [place] [address] [address]- 8482 November, Diabetes type 2, controlled E11.9 and Morbid obesity due to excess calories E66.01 [place] [address] [place] [address] 18035- 1972 November, Anxiety F41.9 and Injury of right foot, initial encounter S99.921A [place] [address] [place] [id number] [place] [address] 38113- 8594 November, Diabetes type 2, controlled E11.9 and Morbid obesity due to excess calories E66.01 [place] [address] [place] [id number] [place] [address] 95411- 1773 November, [facility] [address] [place] [id number] [place] [address] 16385- 8404 Oct, [facility] [address] [place] [id number] [place] [address] 03759- 7608 Oct, Family history of brain aneurysm Z82.49 and Migraine without aura and without status migrainosus, not intractable G43.009 [facility] [address] [place] [id number] [place] [address] 08026- 2617 Oct, Diabetes type 2, controlled E11.9 [facility] [address] [place] [id number] [place] [address] 16200- 2929 Oct, Morbid obesity due to excess calories E66.01 ; Family history of brain aneurysm Z82.49 and Migraine without aura and without status migrainosus, not intractable G43.009 [facility] [address] [place] [id number] [place] [address] 30679- 4824 Oct, Diabetes type 2, controlled E11.9 and Morbid obesity due to excess calories E66.01 [facility] [address] [place] [id number] [place] [address] 40237- 6171 Sep, [facility] [address] [place] [id number] [place] [address] 65259- 3780 Sep, Diabetes type 2, controlled E11.9 [facility] [address] [place] [id number] [place] [address] 88364- 8377 Sep, Morbid obesity due to excess calories E66.01 [facility] [address] [place] [id number] [place] [address] 43987- 6364 Aug, Exposure to hepatitis C Z20.5 [facility] [address] [place] [id number] [place] [address] 20008- 2278 Aug, Diabetes type 2, controlled E11.9 [facility] [address] [place] [id number] [place] [address] 41929- 1535 Jul, Exposure to hepatitis C Z20.5 [facility] [address] [address]- 3065 Jul, Exposure to hepatitis C Z20.5 [facility] [address] [place] [address] 61954- 8430 Jul, [facility] [address] [address]- 7542 Jul, Diabetes type 2, controlled E11.9 [facility] [address] [place] [address] [address]- 6298 Jun, [facility] [address] [place] [id number] [place] [address] 79362- 0501 Jun, Diabetes type 2, controlled E11.9 ; Pain of left foot M79.672 and Pain in right foot M79.671 [facility] [address] [place] [id number] [place] [address] 80121- 8061 May, [facility] [address] [address]- 3999 Apr, [facility] [address] [place] [id number] [place] [address] 41473- 0453 Apr, [facility] [address] [address]- 8963 Mar, [facility] [address] [address]- 8153 Feb, [facility] [address] [address]- 2540 Feb, [facility] [address] [place] [address] 90620- 7468 Jan, [facility] [address] [place] [address] 18188- 2544 Dec, Diabetes type 2, controlled E11.9 ; 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 and Abscess, abdomen K65.1 [facility] [address] [address]- 8496 Dec, Shoulder pain, right 719.41 [facility] [address] [address]- 3357 November, [facility] [address] [address]- 7603 November, [facility] [id number] [place] [address] 04803- 6841 Oct, [facility] [address] [place] [address] 83474- 6871 Sep, [facility] [address] [place] [address] 36974- 4497 Sep, [facility] [address] [address] -6393 Aug, [facility] [address] [address]- 3376 Aug, [facility] [address] [address]- 6271 Aug, Cellulitis, unspecified L03.90 ; Cutaneous abscess, unspecified L02.91 ; Diabetes type 2, controlled E11.9 ; Migraine G43.909 and Bilateral low back pain with sciatica, sciatica laterality unspecified M54.40 [facility] [address] [address] -2839 Aug, Abscess and cellulitis L03.90 [facility] [address] [address]- 8362 Aug, [facility] [address] [address]- 1916 Aug, [facility] [address] [address]- 6405 Jul, [facility] [address] [address]- 5019 Jul, Diabetes type 2, controlled E11.9 [facility] [address] [id number] [place] [address], [place] 3420 Jul, Diabetes type 2, controlled E11.9 [facility] [address] 8679 Jun, Diabetes type 2, controlled E11.9 ; Bilateral low back pain with sciatica, sciatica laterality unspecified M54.40 and Morbid obesity, unspecified obesity type E66.01 [facility] [address] [facility] [id number] [place] [address]- 9419 Jun, [facility] [address] [address]- 6030 May, [facility] [address] [id number] [place] [address] 23167- 0730 Apr, [facility] [address] [address]- 2140 Apr, [facility] [address] [address]- 2862 Apr, [facility] [address] [address]- 7755 Mar, [facility] [address] [address]- 4195 Mar, [facility] [address] [address]- 9805 Mar, [facility] [address] 8013 Feb, [facility] [address] 2273 Feb, [facility] [address] [address]- 0545 Feb, [facility] [address] 1686 Feb, [facility] [id number] [place] [address] 45201- 9678 Feb, Diabetes mellitus without mention of complication, type II or unspecified type, not stated as uncontrolled 250.00 [facility] [id number] [place] [address] 79434- 5956 Feb, [facility] [id number] [place] [address] 54504- 3963 Feb, [facility] [address] [id number] [place] [address] 63247- 9833 Jan, Diabetes mellitus without mention of complication, type II or unspecified type, not stated as uncontrolled 250.00 and Cellulitis and abscess 682.9 [facility] [id number] [place] [address] 87689- 7746 Jan, [facility] [id number] [place] [address] 14199- 9833 Jan, [facility] [id number] [place] [address] 80621- 2005 Jan, [facility] [id number] [place] [address] 14163- 2290 Dec, [facility] [address] [address]- 8708 Dec, [facility] [address] [address]- 0908 Dec, [facility] [address] 0250 November, [facility] [address] [place] [address] [id number]- 2012 Oct, Shoulder pain, right 719.41 [facility] [address]- 6485 Oct, [facility] [place] [facility] [address] [id number] [place] [address]- 7457 Oct, [facility] [place] [facility] [address] [id number] [place] [address]- 5869 Sep, [facility] [place] [facility] [address] [id number] [place] [address]- 4408 Sep, [facility] [place] [facility] [address] [id number] [place] [address]- 3236 Sep, [facility] [place] [facility] [address] [id number] [place] [address]- 0195 Sep, [facility] [place] [facility] [address] [id number] [place] [address]- 5011 Sep, [facility] [place] [facility] [address] [id number] [place] [address]- 4357 Sep, [facility] [place] [facility] [address] [id number] [place] [address]- 3359 Sep, [facility] [place] [facility] [address] [id number] [place] [address]- 4906 Sep, [facility] [place] [facility] [address] [id number] [place] [address]- 8617 Aug, [facility] [place] [facility] [address] [id number] [place] [address]- 3159 Aug, [facility] [place] [facility] [address] [id number] [address]- 0817 Aug, [facility] [place] [facility] [address] [id number] [place] [address]- 8913 Aug, [facility] [place] [facility] [address] [id number] [place] [address]- 4345 Jul, [facility] [place] [facility] [address] [id number] [address]- 6120 Jul, [facility] [place] [facility] [address] [id number] [place] [address]- 9797 14 Jul, 2014 [facility] [place] [facility] [address] [id number] [place] [address]- 2662 14 Jul, 2014 [facility] [place] [facility] [address] [id number] [place] [address]- 1485 Jul, [facility] [place] [facility] [address] [facility] [id number] [place] [address]- 8179 Jul, [facility] [place] [facility] [address] [id number] [place] [address]- 6196 24 Jun, 2014 [facility] [place] [facility] [address] [id number] [place] [address]- 1874 24 Jun, 2014 [facility] [place] [facility] [address] [id number] [place] [address]- 1405 Jun, [facility] [place] [facility] [address] [facility] [id number] [place] [address]- 4479 Jun, [facility] [place] [facility] [address] [id number] [place] [address]- 9624 18 Jun, 2014 [facility] [place] [facility] [address] [id number] [place] [address]- 0572 18 Jun, 2014 [facility] [place] [facility] [address] [facility] [id number] [place] [address]- 5697 15 Jun, 2014 [facility] [place] [facility] [address] [id number] [place] [address]- 9685 Jun, [facility] [place] [facility] [address] [id number] [address]- 1856 May, [facility] [place] [facility] [address] [id number] [place] [address]- 4675 May, [facility] [place] [facility] [address] [facility] [id number] [place] [address]- 0969 May, [facility] [place] [facility] [address] [facility] [id number] [place] [address]- 2191 May, [facility] [place] [facility] [address] [id number] [place] [address]- 2068 May, [facility] [place] [facility] [address] [id number] [place] [address]- 3955 May, [facility] [place] [facility] [address] [id number] [place] [address]- 4876 Apr, [facility] [place] [facility] [address] [id number] [place] [address]- 9713 Apr, [facility] [place] [facility] [address] [id number] [place] [address]- 0211 Apr, [facility] [place] [facility] [address] [id number] [place] 0090 Apr, [facility] [place] [facility] [address] [id number] [place] [address]- 0832 Apr, [facility] [place] [facility] [address] [id number] [place] [address]- 6469 Apr, [facility] [place] [facility] [address] [id number] [place] [address]- 9886 Apr, [facility] [place] [facility] [address] [id number] [place] [address]- 1102 Mar, [facility] [place] [facility] [address] [id number] [place] [address]- 9901 Mar, [facility] [place] [facility] [address] [id number] [place] [address]- 0143 Mar, [facility] [place] [facility] [address] [id number] [place] [address]- 6457 Mar, [facility] [place] [facility] [address] [id number] [place] [address]- 7279 Feb, [facility] [place] [facility] [address] [id number] [place] [address]- 1234 Feb, [facility] [place] [facility] [address] [id number] [place] [address]- 0444 Feb, [facility] [place] [facility] [address] [id number] [place] [address]- 8925 Feb, [facility] [place] [facility] [address] [id number] [place] [address]- 1584 Feb, [facility] [place] [facility] [address] [id number] [place] [address]- 2909 Feb, [facility] [place] [facility] [address] [id number] [place] [address]- 1943 Jan, [facility] [place] [facility] [address] [id number] [place] [address]- 5502 Jan, [facility] [place] [facility] [address] [id number] [place] [address]- 7301 Jan, [facility] [place] [facility] [address] [id number] [place] [address]- 9648 Jan, [facility] [place] [facility] [address] [id number] [place] [address] Jan, [facility] [place] [facility] [address] [id number] [place] [address] Jan, [facility] [place] [facility] [address] [id number] [place] [address] Jan, [facility] [place] [facility] [address] [id number] [place] [address] Jan, [facility] [place] [facility] [address] [id number] [place] [address] Jan, [facility] [place] [facility] [address] [id number] [place] [address] Jan, [facility] [place] [facility] [address] [id number] [place] [address] Dec, [facility] [place] [facility] [address] [id number] [place] [address] Dec, [facility] [place] [facility] [address] [id number] [place] [address] Dec, [facility] [place] [facility] [address] [id number] [place] [address] Dec, [facility] [place] [facility] [address] [id number] [place] [address] November, [facility] [place] [facility] [address] [id number] [place] [address] November, [facility] [place] [facility] [address] [id number] [place] [address] November, [facility] [place] [facility] [address] [id number] [place] [address] November, [facility] [place] [facility] [address] [id number] [place] [address] Oct, [facility] [place] [facility] [address] [id number] [place] [address] Oct, [facility] [place] [facility] [address] [id number] [place] [address] Oct, [facility] [place] [facility] [address] [id number] [place] [address] Oct, [facility] [place] [facility] [address] [id number] [place] [address] Oct, [facility] [place] [facility] [address] [id number] [place] [address] Oct, [facility] [place] [facility] [address] [id number] [place] [address] Oct, [facility] [place] [facility] [address] [id number] [place] [address] Oct, [facility] [place] [facility] [address] [id number] [place] [address] Sep, [facility] [place] [facility] [address] [id number] [place] [address] Sep, [facility] [place] [facility] [address] [id number] [place] [address] Sep, [facility] [place] [facility] [address] [id number] [place] [address] Sep, [facility] [place] [facility] [address] [id number] [place] [address] Sep, [facility] [place] [facility] [address] [id number] [place] [address] Sep, [facility] [place] [facility] [address] [id number] [place] [address] Aug, [facility] [place] [facility] [address] [id number] [place] [address] Aug, [facility] [place] [facility] [address] [id number] [place] [address] Jul, [facility] [place] [facility] [address] [id number] [place] [address] Jul, [facility] [place] [facility] [address] [id number] [place] [address] Jul, [facility] [place] [facility] [address] [id number] [place] [address] Jul, [facility] [place] [facility] [address] [id number] [place] [address] Jul, [facility] [place] [facility] [address] [id number] [place] [address] Jul, [facility] [place] [facility] [address] [id number] [place] [address] Jul, [facility] [place] [facility] [address] [id number] [place] [address] Jul, [facility] [place] [facility] [address] [id number] [place] [address] Jun, [facility] [place] [facility] [address] [id number] [address] Jun, [facility] [place] [facility] [address] [id number] [place] [address] May, [facility] [place] [facility] [address] [id number] [place] [address] May, [facility] [place] [facility] [address] [id number] [place] [address] 76[address] Apr, [facility] [place] [facility] [address] [id number] [place] [address] Apr, [facility] [place] [facility] [address] [id number] [place] [address] 5[address] Apr, [facility] [place] [facility] [address] [id number] [place] [address] 2[address] Apr, [facility] [place] [facility] [address] [id number] [place] [address] Apr, [facility] [place] [facility] [address] [id number] [place] [address] 95[address] Apr, [facility] [place] [facility] [address] [id number] [place] [address] 8[address] Apr, [facility] [place] [facility] [address] [id number] [place] [address] Apr, [facility] [place] [facility] [address] [id number] [place] [address] Apr, [facility] [place] [facility] [address] [id number] [place] [address] Apr, [facility] [place] [facility] [address] [id number] [place] [address] Apr, [facility] [place] [facility] [address] [id number] [place] [address] 1484 Apr, [facility] [place] [facility] [address] [id number] [place] [address] 18 Apr, 2013 [facility] [place] [facility] [address] [id number] [place] [address] 18 Apr, 2013 [facility] [address] [id number] [place] [address] 90[address] 02 Apr, 2013 [facility] [place] [facility] [address] [id number] [place] [address] 27 Mar, 2012 [facility] [place] [facility] [address] [id number] [place] [address] 27 Mar, 2012 [facility] [place] [facility] [address] [id number] [place] [address] 8[address] 26 Mar, 2012 [facility] [address] [id number] [place] [address] 3[address] 25 Mar, 2013 [facility] [place] [facility] [address] [id number] [place] [address] 2325 16 Mar, 2013 [facility] [place] [facility] [address] [id number] [place] [address] 7[address] 03 Mar, 2013 [facility] [address] [id number] [place] [address] 9[address] 31 Jan, 2013 [facility] [place] [facility] [address] [id number] [place] [address] Jan, [facility] [address] [id number] [place] [address] Jan, [facility] [place] [facility] [address] [id number] [place] [address] Dec, [facility] [place] [facility] [address] [id number] [place] [address] 67[address] Oct, [facility] [place] [facility] [address] [id number] [place] [address] 3[address] May, [facility] [place] [facility] [address] [id number] [place] [address] 2546 May, [facility] [place] [facility] [address] [id number] [place] [address]- 3469 05 Jun, 2011 [facility] [place] [facility] [address] [id number] [place] [address]- 9121 11 May, 2011 [facility] [place] [facility] [address] [id number] [place] [address] 6[address] May, [facility] [place] [facility] [address] [id number] [place] [address]- 2209 03 May, 2011 [facility] [place] [facility] [address] [id number] [place] [address]- 4765 14 Apr, 2011 [facility] [place] [facility] [address] [id number] [place] [address]- 8619 13 Apr, 2011 [facility] [place] [facility] [address] [id number] [place] [address]- 8098 17 Feb, 2011 [facility] [place] [facility] [address] [id number] [place] [address]- 4581 16 Feb, 2011 [facility] [place] [facility] [address] [id number] [place] [address] 9887 Dec, [facility] [place] [facility] [address] [id number] [place] [address] 8874 Oct, [facility] [place] [facility] [address] [id number] [place] [address]- 3408 Sep, [facility] [place] [facility] [address] [id number] [place] [address]- 5[address] Sep, [facility] [place] [facility] [address] [id number] [place] [address]- 6[address] Jul, [facility] [place] [facility] [address] [id number] [place] [address] 0819 Jul, [facility] [place] [facility] [address] [id number] [place] [address]- 7327 28 Jun, 2010 [facility] [place] [facility] [address] [id number] [place] [address]- 0930 23 Jun, 2010 [facility] [place] [facility] [address] [id number] [place] [address]- 5820 14 Jun, 2010 [facility] [place] [facility] [address] [id number] [place] [address]- 3433 14 Jun, 2010 [facility] [place] [facility] [address] [id number] [place] [address]- 7148 08 Jun, 2010 [facility] [place] [facility] [address] [id number] [place] [address]- 3199 30 May, 2010 [facility] [place] [facility] [address] [id number] [place] [address]- 2608 23 May, 2010 [facility] [place] [facility] [address] [id number] [place] [address]- 6670 17 May, 2010 [facility] [place] [facility] [address] [id number] [place] [address]- 9479 17 May, 2010 [facility] [place] [facility] [address] [id number] [place] [address]- 5[address] 17 May, 2010 [facility] [place] [facility] [address] [id number] [place] [address]- 6807 17 May, 2010 [facility] [place] [facility] [address] [id number] [place] [address]- 1928 23 Apr, 2010 [facility] [place] [facility] [address] [facility] [id number] [place] [address]- 0955 14 Apr, 2010 [facility] [place] [facility] [address] [id number] [place] [address]- 1702 10 Mar, 2010 [facility] [place] [facility] [address] [id number] [place] [address]- 4822 10 Feb, 2010 [facility] [place] [facility] [address] [id number] [place] [address]- 9132 17 Sep, 2009 [facility] [place] [facility] [address] [id number] [place] [address]- 5662 Sep, [facility] [place] [facility] [address] [facility] [id number] [place] [address]- 2730 18 Aug, 2009 [facility] [address] [facility] [id number] [place] [address] Jun, [facility] [id number] [address] Jun, [facility] [address] [facility] [id number] [place] [address]- [address]797 May, [facility] [id number] [address] Dec, [facility] [address] [facility] [id number] [place] [address]- [address] Sep, IMMUNIZATIONS No Known Immunizations SOCIAL HISTORY Never Assessed REASON FOR VISIT Pain management (chronic)-Brittany SIMS PLAN OF CARE VITAL SIGNS Height 69 in 2017-07-30 Weight 247.8 lbs 2017-07-30 Temperature 99.2 degrees Fahrenheit 2017-07-30 Heart Rate 88 bpm 2017-07-30 Respiratory Rate 20 2017-07-30 BMI 36.59 kg/m2 2017-07-30 Blood pressure systolic 144 mmHg 2017-07-30 Blood pressure diastolic 82 mmHg 2017-07-30 MEDICATIONS Medication Instructions Dosage Frequency Start Date End Date Duration Status Vitamins 0.8 MG Orally Once a day 1 tablet 24h Active Ibuprofen 200 MG Orally every 6 hrs 1 tablet as needed 6h Active Dextroamphetamine Sulfate 10 MG Orally Three times a day 2 tablets 8h Jun, 28 days Active Albuterol Sulfate HFA 108 (90 Base) MCG/ACT Inhalation every 6 hrs 2 puffs as needed 6h Jul, Active Lisinopril 20 mg Orally Once a day 1 tablet 24h Active [place] 5-325 MG Orally 3 times a day 1 tablet as needed 8h Jun, Jul, 28 days Active Xanax 1 MG Orally Twice a day 1 tablet 12h Jun, Active RESULTS No Results PROCEDURES Procedure Date Ordered Result Body Site COMPREHEN METABOLIC PANEL Jul 30, 2017 VENIPUNCT, ROUTINE* Jul 30, 2017 LIPID PANEL Jul 30, 2017 COMPLETE CBC W/AUTO DIFF WBC Jul 30, 2017 ASSAY THYROID STIM HORMONE Jul 30, 2017 ASSAY OF TOTAL THYROXINE Jul 30, 2017 FREE ASSAY (FT-3) Jul 30, 2017 INSTRUCTIONS MEDICATIONS ADMINISTERED No Known Medications MEDICAL (GENERAL) HISTORY Type Description Date Medical History Type II diabetic Medical History hypertension Medical History MRSA Medical History PCOS Medical History 3 slipped disk in back. Surgical History knee surgery Hospitalization History surgeries Hospitalization History [facility] Pt[facility] unable to walk after waking up from a nap. 12/2015
--- OUTSIDE RECORDS SUMMARY | 2018-06-27 07:36 | XMS REPORT ---
Author ARABELLA Elliott Organization [employer] Address Unknown Phone Unavailable Care Team Providers Care Dowel Maker Name Role Phone ARABELLA DIXON CP Unavailable Allergies No Known Allergies Problems Problem Type Condition ICD-9 Code Onset Dates Condition Status Problem Diabetes mellitus without mention of complication, type II or unspecified type, not stated as uncontrolled 250.00 Active Problem Need for prophylactic vaccination and inoculation, Influenza V04.81 Active Medications Medication Code System Code Instructions Start Date End Date Status Dosage Dexedrine [facility] [address]-25 10 MG Orally 3 times per day Justine to sign in Rey's absense October 04, 2014 2 tabs Results No Known Results Summary Purpose [employer] Submission
--- OUTSIDE RECORDS SUMMARY | 2018-06-27 07:36 | XMS REPORT ---
Author Author ARABELLA DIXON Organization [facility] Address [address] [place] [address] Care Team Providers Care Pastry Mixer Name Role Phone ARABELLA DIXON Unavailable PROBLEMS Type Condition ICD9-CM Code IHF34-HR Code Onset Dates Condition Status SNOMED Code Problem Anxiety F41.9 Active 86361332 Problem Migraine without aura and without status migrainosus, not intractable G43.009 Active 491350766 Problem High risk medications (not anticoagulants) long-term use Z79.899 Active 757749079 Problem Obstructive sleep apnea syndrome G47.33 Active 62132131 Problem Morbid obesity due to excess calories E66.01 Active 637353867 Problem Diabetes type 2, controlled E11.9 Active 09159312 ALLERGIES Substance Reaction Event Type Date Status Wellbutrin Unknown Drug Allergy Jun, Active Effexor increases depression -JCriserRN Drug Allergy Jun, Active SOCIAL HISTORY No smoking Hx information available PLAN OF CARE VITAL SIGNS Height 69 in 2016-06-27 Weight 294.5 lbs 2016-06-27 Temperature 98.1 degrees Fahrenheit 2016-06-27 Heart Rate 100 bpm 2016-06-27 Respiratory Rate 20 2016-06-27 BMI 43.49 kg/m2 2016-06-27 Blood pressure systolic 176 mmHg 2016-06-27 Blood pressure diastolic 92 mmHg 2016-06-27 MEDICATIONS Medication Instructions Dosage Frequency Start Date End Date Duration Status Neurontin 100 MG Orally Three times a day 1 capsule 8h Jun, Active GlipiZIDE 5 MG Orally 2 times a day 1 tablet 12h 30 Active Dexedrine 10 MG Orally 3 times per day. 2 tabs Sep, Active Tizanidine HCl 4 MG Orally every 8 hrs 1 capsule as needed 8h Active Chantix 1 MG Orally Twice a day 1 tablet 12h Jun, Dec, 30 day(s) Active Ibuprofen 200 MG Orally every 6 hrs 1 tablet as needed 6h Active Dextroamphetamine Sulfate 10 mg 2 tablets 8h Jun, Active Neurontin 300 MG Orally Three times a day 1 capsule 8h Oct, 30 days Active Actos 15 MG Orally Once a day 1 tablet 24h Active [place] 5-325 MG Orally 4 times a day 1 tablet as needed 6h Jun, Active RESULTS Name Result Date Reference Range A1C (IN HOUSE) 2016-06-27 A1C IN HOUSE 7.9 4.3 - 5.6 % Previous A1c 9.2 Lot [id number] Exp date 03/2018 MICROALBUMIN, URINE (IN HOUSE) 2016-06-27 MICROALBUMIN normal Lot # [id number] Exp date Clarity clear Color yellow ALB 30 CRE 300 A:C (IN HOUSE) <30 Control + Control Lot # Exp date PROCEDURES Procedure Date Ordered Related Diagnosis Body Site GLYCATED HEMOGLOBIN TEST Jun 27, 2016 MICROALBUMIN, SEMIQUANT Jun 27, 2016 Office Visit, Est Pt., Level 3 Jun 27, 2016 IMMUNIZATIONS No Known Immunizations
--- OUTSIDE RECORDS SUMMARY | 2018-06-27 07:37 | XMS REPORT ---
Author ARABELLA Elliott Organization [employer] Address Unknown Phone Unavailable Care Team Providers Care Cement Mason Name Role Phone ARABELLA DIXON CP Unavailable Allergies No Known Allergies Problems Problem Type Condition ICD-9 Code Onset Dates Condition Status Problem Diabetes mellitus without mention of complication, type II or unspecified type, not stated as uncontrolled 250.00 Active Problem Need for prophylactic vaccination and inoculation, Influenza V04.81 Active Medications Medication Code System Code Instructions Start Date End Date Status Dosage Dexedrine [facility] [address]-04 10 MG Orally 3 times per day Justine to sign in Rey's absense October 04, 2014 2 tabs Results No Known Results Summary Purpose [employer] Submission
--- OUTSIDE RECORDS SUMMARY | 2018-06-27 07:37 | XMS REPORT ---
Author Author ARABELLA DIXON Organization [employer] Address Unknown Phone Unavailable Care Team Providers Care Creeler Name Role Phone ARABELLA DIXON CP Unavailable [...] Diabetes type 2, controlled E11.9 Active Assessment Morbid obesity, unspecified obesity type E66.01 Active Assessment Diabetes type 2, controlled E11.9 Active Assessment Bilateral low back pain with sciatica, sciatica laterality unspecified M54.40 Active Medications Medication Code System Code Instructions Start Date End Date Status Dosage Tizanidine HCl [facility] 89457739300 4 MG Orally every 8 hrs 1 capsule as needed Diflucan [facility] [address]-67 150 MG Orally Once a day Jun 27, 2015 1 tablet Pen [place] [facility] 0 32 mm Mar 15, 2014 1 1 time per day use as directed with Victoza Lisinopril [facility] [address]-68 10 MG Orally Once a day Jun 27, 2015 1 tablet Dexedrine [facility] [address]-77 10 MG Orally 3 times per day. October 04, 2014 2 tabs Victoza [facility] [address]-54 18 MG/3ML Subcutaneous Once a day 0.2 ml [place] [facility] [address]-99 5-325 MG 3 times a day September 23, 2014 1 tablet as needed Procedures Procedure Coding System Code Date Office Visit, Est Pt., Level 3 CPT-4 12102 Jun 27, 2015 Vital Signs Date/Time: Jun 27, 2015 Temperature 98.7 F Weight 285 lbs Height 69 in BMI 42.08 Index Blood Pressure Diastolic 78 mmHg Blood Pressure Systolic 142 mmHg Cardiac Monitoring Heart Rate 78 bpm Results No Known Results Summary Purpose [employer] Submission
--- OUTSIDE RECORDS SUMMARY | 2018-06-27 07:37 | XMS REPORT ---
Author Author ARABELLA DIXON Organization [facility] Address [address] [place] [address] Care Team Providers Care Softball Coach Name Role Phone ARABELLA DIXON Unavailable PROBLEMS Type Condition ICD9-CM Code FGP97-MD Code Onset Dates Condition Status SNOMED Code Problem High risk medications (not anticoagulants) long-term use Z79.899 Active 889870860 Problem Mood disorder F39 Active 31725298 Problem Anxiety F41.9 Active 67964622 Problem Diabetes type 2, controlled E11.9 Active 09388837 Problem Obstructive sleep apnea syndrome G47.33 Active 06525391 Problem Migraine without aura and without status migrainosus, not intractable G43.009 Active 896100844 Problem Morbid obesity due to excess calories E66.01 Active 806020314 ALLERGIES No Information SOCIAL HISTORY Never Assessed PLAN OF CARE VITAL SIGNS MEDICATIONS Medication Instructions Dosage Frequency Start Date End Date Duration Status [place] 5-325 MG Orally 4 times a day 1 tablet as needed 6h Aug, 28 days Active Dextroamphetamine Sulfate 10 mg Orally Three times a day 2 tablets 8h Aug, 28 days Active RESULTS No Results PROCEDURES [...]
--- OUTSIDE RECORDS SUMMARY | 2018-06-27 07:37 | XMS REPORT ---
Author ARABELLA Elliott Organization [employer] Address Unknown Phone Unavailable Care Team Providers Care Veterans Employment Representative Name Role Phone ARABELLA DIXON CP Unavailable [...] Instructions Start Date End Date Status Dosage [place] [facility] [address]-02 5-325 MG 3 times a day September 23, 2014 1 tablet as needed Dexedrine [facility] [address]-71 10 MG Orally 3 times per day. October 04, 2014 2 tabs Results No Known Results Summary Purpose [employer] Submission
--- OUTSIDE RECORDS SUMMARY | 2018-06-27 07:37 | XMS REPORT ---
Author Author ZOE MAYS Organization [facility] Address [address] [place] [address] Care Team Providers Care Circulation Assistant Name Role Phone ZOE MAYS Unavailable PROBLEMS Type Condition ICD9-CM Code QEM05-QI Code Onset Dates Condition Status SNOMED Code Problem Anxiety F41.9 Active 31925128 Problem Migraine without aura and without status migrainosus, not intractable G43.009 Active 813932610 Problem Obstructive sleep apnea syndrome G47.33 Active 05932496 Problem High risk medications (not anticoagulants) long-term use Z79.899 Active 984857501 Problem Morbid obesity due to excess calories E66.01 Active 695615382 Problem Diabetes type 2, controlled E11.9 Active 40920080 ALLERGIES Unknown Allergies SOCIAL HISTORY No smoking Hx information available PLAN OF CARE VITAL SIGNS MEDICATIONS Unknown Medications RESULTS No Results PROCEDURES No Known procedures IMMUNIZATIONS No Known Immunizations
--- OUTSIDE RECORDS SUMMARY | 2018-06-27 07:37 | XMS REPORT ---
Author Author ARABELLA DIXON [facility] Address [address] [place] [address] Care Team Providers Care Job Foreman Name Role Phone ARABELLA DIXON Unavailable PROBLEMS Type Condition ICD9-CM Code POI58-SL Code Onset Dates Condition Status SNOMED Code Problem Anxiety F41.9 Active 29915427 Problem Migraine without aura and without status migrainosus, not intractable G43.009 Active 532225517 Problem Obstructive sleep apnea syndrome G47.33 Active 67693370 Problem High risk medications (not anticoagulants) long-term use Z79.899 Active 111817199 Problem Morbid obesity due to excess calories E66.01 Active 349754454 Problem Diabetes type 2, controlled E11.9 Active 17775707 ALLERGIES Unknown Allergies SOCIAL HISTORY No smoking Hx information available PLAN OF CARE VITAL SIGNS MEDICATIONS Unknown Medications RESULTS No Results PROCEDURES No Known procedures IMMUNIZATIONS No Known Immunizations
--- OUTSIDE RECORDS SUMMARY | 2018-06-27 07:38 | XMS REPORT ---
Author Author ARABELLA DIXON Organization [facility] Address [address] [place] [address] Care Team Providers Care Lead Etl Developer Name Role Phone ARABELLA DIXON Unavailable PROBLEMS Type Condition ICD9-CM Code JYA36-ZQ Code Onset Dates Condition Status SNOMED Code Problem High risk medications (not anticoagulants) long-term use Z79.899 Active 336907863 Problem Mood disorder F39 Active 80381127 Problem Anxiety F41.9 Active 45175982 Problem Diabetes type 2, controlled E11.9 Active 17872768 Problem Obstructive sleep apnea syndrome G47.33 Active 33074020 Problem Migraine without aura and without status migrainosus, not intractable G43.009 Active 512061742 Problem Morbid obesity due to excess calories E66.01 Active 044776108 ALLERGIES No Information SOCIAL HISTORY Never Assessed PLAN OF CARE VITAL SIGNS MEDICATIONS Medication Instructions Dosage Frequency Start Date End Date Duration Status Dextroamphetamine Sulfate 10 mg Orally Three times [...]
--- OUTSIDE RECORDS SUMMARY | 2018-06-27 07:38 | XMS REPORT ---
Author ARABELLA Elliott Organization [employer] Address Unknown Phone Unavailable Care Team Providers Care Flap Lining Binder Name Role Phone ARABELLA DIXON CP Unavailable Allergies No Known Allergies Problems Problem Type Condition Code Onset Dates Condition Status Problem Diabetes mellitus without mention of complication, type II or unspecified type, not stated as uncontrolled 250.00 Active Problem Need for prophylactic vaccination and inoculation, Influenza V04.81 Active Medications Medication Code System Code Instructions Start Date End Date Status Dosage [facility] [address]-63 5-325 MG MUST LAST 30 DAYS September 23, 2014 take 1 tablet by oral route every 6 hours as needed for pain PRN pain Results No Known Results Summary Purpose [employer] Submission
--- OUTSIDE RECORDS SUMMARY | 2018-06-27 07:38 | XMS REPORT ---
Author Author ARABELLA DIXON Organization [facility] Address [address] [place] [address] Care Team Providers Care Leach Tank Tender Name Role Phone ARABELLA DIXON Unavailable PROBLEMS Type Condition ICD9-CM Code SBI62-PP Code Onset Dates Condition Status SNOMED Code Problem High risk medications (not anticoagulants) long-term use Z79.899 Active 823988068 Problem Mood disorder F39 Active 88649308 Problem Anxiety F41.9 Active 85001183 Problem Diabetes type 2, controlled E11.9 Active 11115700 Problem Obstructive sleep apnea syndrome G47.33 Active 60259315 Problem Migraine without aura and without status migrainosus, not intractable G43.009 Active 324624073 Problem Morbid obesity due to excess calories E66.01 Active 548899693 ALLERGIES No Information ENCOUNTERS Encounter Location Date Diagnosis [facility] [id number] [place] [address] 22411- 7212 Oct, [facility] [id number] [place] [address] 90272- 3925 Sep, Diabetes type 2, controlled E11.9 [facility] [id number] [place] [address] 22811- 5642 Sep, [facility] [id number] [place] [address] 85452- 5098 Aug, Diabetes type 2, controlled E11.9 and Morbid obesity due to excess calories E66.01 [facility] [address] 56722- 2249 Jul, Anxiety F41.9 [facility] [id number] [place] [address] 08741- 8679 Jul, [facility] [address] 36058- 6510 Jul, Anxiety F41.9 ; Mood disorder F39 ; Morbid obesity due to excess calories E66.01 and Diabetes type 2, controlled E11.9 [facility] [id number] [place] [address] 46854- 8135 Jun, Anxiety F41.9 [facility] [id number] [place] [address] 64294- 8650 Jun, Anxiety F41.9 ; Morbid obesity due to excess calories E66.01 and Diabetes type 2, controlled E11.9 [facility] [id number] [place] [address] 40241- 4647 May, Migraine without aura and without status migrainosus, not intractable G43.009 ; Diabetes type 2, controlled E11.9 and Morbid obesity due to excess calories E66.01 [place] [id number] [place] [address] 75936- 6447 Apr, Migraine without aura and without status migrainosus, not intractable G43.009 ; Diabetes type 2, controlled E11.9 and Morbid obesity due to excess calories E66.01 [place] [id number] [place] [address] 47567- 0175 Apr, Diabetes type 2, controlled E11.9 and Morbid obesity due to excess calories E66.01 [facility] [address] [address] 9909 Mar, Diabetes type 2, controlled E11.9 and Morbid obesity due to excess calories E66.01 [facility] [id number] [place] [address] 50981- 5778 Mar, Diabetes type 2, controlled E11.9 and Mood disorder F39 [facility] [id number] [place] [address] 49517- 1953 Feb, Morbid obesity due to excess calories E66.01 and Diabetes type 2, controlled E11.9 [facility] [id number] [place] [address] 22372- 9533 Jan, Diabetes type 2, controlled E11.9 and Morbid obesity due to excess calories E66.01 [facility] [address] [place] [address] 56160- 3431 Dec, Diabetes type 2, controlled E11.9 and Morbid obesity due to excess calories E66.01 [facility] [address] [place] [address] 53546- 8685 Dec, Morbid obesity due to excess calories E66.01 [facility] [id number] [place] [address] 92246- 6635 November, Diabetes type 2, controlled E11.9 and Morbid obesity due to excess calories E66.01 [facility] [id number] [place] [address] 82370- 7689 November, Anxiety F41.9 and Injury of right foot, initial encounter S99.921A [facility] [id number] [place] [address] 09983- 9827 November, Diabetes type 2, controlled E11.9 and Morbid obesity due to excess calories E66.01 [facility] [id number] [place] [address] 48557- 0438 November, [facility] [id number] [place] [address] 79627- 6992 Oct, [facility] [id number] [place] [address] 49243- 2153 Oct, Family history of brain aneurysm Z82.49 and Migraine without aura and without status migrainosus, not intractable G43.009 [facility] [address] [place] [address]- 9942 Oct, Diabetes type 2, controlled E11.9 [facility] [id number] [place] [address] 23342- 8817 Oct, Morbid obesity due to excess calories E66.01 ; Family history of brain aneurysm Z82.49 and Migraine without aura and without status migrainosus, not intractable G43.009 [place] [address] [place] [address]- 8449 Oct, Diabetes type 2, controlled E11.9 and Morbid obesity due to excess calories E66.01 [facility] [address] [place] [address]- 0416 Sep, [facility] [id number] [place] [address] 25806- 9052 Sep, Diabetes type 2, controlled E11.9 [facility] [address] [address]- 2335 Sep, Morbid obesity due to excess calories E66.01 [facility] [id number] [place] [address] 51414- 1489 Aug, Exposure to hepatitis C Z20.5 [facility] [id number] [place] [address] 12401- 4276 Aug, Diabetes type 2, controlled E11.9 [facility] [id number] [place] [address] 47747- 0660 Jul, Exposure to hepatitis C Z20.5 [facility] [id number] [place] [address] 40878- 8825 Jul, Exposure to hepatitis C Z20.5 [facility] [address] [place] [address]- 2349 Jul, [facility] [id number] [place] [address] 73284- 2581 Jul, Diabetes type 2, controlled E11.9 [facility] [address] [address]- 6821 Jun, [facility] [address] [place] [address] 13997- 0172 Jun, Diabetes type 2, controlled E11.9 ; Pain of left foot M79.672 and Pain in right foot M79.671 [facility] [address] [address]- 8870 May, [facility] [id number] [place] [address] 403582- 9721 Apr, [facility] [address] 3569 Apr, [facility] [id number] [place] [address] 358575- 9474 Mar, [facility] [id number] [place] [address] 52353- 6268 Feb, [facility] [id number] [place] [address] 428570- 1821 Feb, [facility] [id number] [place] [address] 42267- 0177 Jan, [facility] [id number] [place] [address] 411949- 3663 Dec, Diabetes type 2, controlled E11.9 ; 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 and Abscess, abdomen K65.1 [facility] [id number] [place] [address] 107538- 2022 Dec, Shoulder pain, right 719.41 [facility] [address] 1724 November, [facility] [id number] [address]- 7904 November, [facility] [address] 3605 Oct, [facility] [id number] [place] [address] 271502- 9117 Sep, [facility] [address] 1148 Sep, [facility] [address] [place] [address] -0094 Aug, [facility] [address] [place] [address]- 9433 Aug, [facility] [id number] [place] [address] 73843- 5604 Aug, Cellulitis, unspecified L03.90 ; Cutaneous abscess, unspecified L02.91 ; Diabetes type 2, controlled E11.9 ; Migraine G43.909 and Bilateral low back pain with sciatica, sciatica laterality unspecified M54.40 [facility] [id number] [place] [address] 85547 -1726 Aug, Abscess and cellulitis L03.90 [facility] [id number] [place] [address] 91162- 9714 Aug, [facility] [id number] [place] [address] 31782- 7921 Aug, [facility] [id number] [place] [address] 71085- 8817 Jul, [facility] [id number] [place] [address] 74011- 7646 Jul, Diabetes type 2, controlled E11.9 [facility] [id number] [place] [address] 81107- 2123 Jul, Diabetes type 2, controlled E11.9 [facility] [id number] [place] [address] 72080- 8507 Jun, Diabetes type 2, controlled E11.9 ; Bilateral low back pain with sciatica, sciatica laterality unspecified M54.40 and Morbid obesity, unspecified obesity type E66.01 [facility] [id number] [place] [address] 89701- 6460 Jun, [facility] [id number] [place] [address] 04355- 8792 May, [facility] [id number] [place] [address] 25632- 7077 Apr, [facility] [address] [place] [address]- 1822 Apr, [facility] [address] [place] [address]- 5176 Apr, [facility] [address] [place] [address]- 3497 Mar, [facility] [address] [place] [address]- 3618 Mar, [facility] [address] [place] [address]- 8329 Mar, [facility] [address] 6398 Feb, [facility] [address] [place] [address]- 5798 Feb, [facility] [address] [place] [address]- 0836 Feb, [facility] [address] [place] [address]- 0658 Feb, [facility] [address], [place] [address]- 5009 Feb, Diabetes mellitus without mention of complication, type II or unspecified type, not stated as uncontrolled 250.00 [facility] [address] [place] [address]- 5393 Feb, [facility] [id number] [address]- 9875 Feb, [facility] [id number] 1342 Jan, Diabetes mellitus without mention of complication, type II or unspecified type, not stated as uncontrolled 250.00 and Cellulitis and abscess 682.9 [facility] [address] [place] [address]- 8368 Jan, [facility] [address] [id number] [place] [address]- 7958 Jan, [facility] [place] [facility] [address] [id number] [place] [address]- 8370 Jan, [facility] [address] [id number] [place] [address]- 5069 Dec, [facility] [place] [facility] [address] [id number] [place] [address]- 6145 Dec, [facility] [place] [facility] [address] [id number] [place] [address]- 3282 Dec, [facility] [place] [facility] [address] [id number] [place] [address]- 9168 November, [facility] [address] [id number] [place] [address]- 4218 Oct, Shoulder pain, right 719.41 [facility] [address] [id number] [place] [address]- 8182 Oct, [facility] [place] [facility] [address] [id number] [place] [address]- 4823 Oct, [facility] [address] [id number] [place] [address]- 5384 Sep, [facility] [place] [facility] [address] [id number] [place] [address]- 2800 Sep, [facility] [place] [facility] [address] [id number] [place] [address]- 1754 Sep, [facility] [place] [facility] [address] [id number] [place] [address]- 2348 Sep, [facility] [place] [facility] [address] [id number] [place] [address]- 5748 Sep, [facility] [place] [facility] [address] [id number] [place] [address]- 3392 Sep, [facility] [place] [facility] [address] [id number] [place] [address]- 6880 14 Sep, 2014 [facility] [place] [facility] [address] [id number] [place] [address]- 3303 14 Sep, 2014 [facility] [place] [facility] [address] [id number] [place] [address]- 0050 24 Aug, 2014 [facility] [place] [facility] [address] [id number] [place] [address]- 1196 Aug, [facility] [place] [facility] [address] [id number] [place] [address]- 9516 Aug, [facility] [place] [facility] [address] [id number] [place] [address]- 8208 Aug, [facility] [place] [facility] [address] [id number] [place] [address]- 5980 Jul, [facility] [place] [facility] [address] [id number] [place] [address]- 7994 Jul, [facility] [place] [facility] [address] [id number] [place] [address]- 9917 Jul, [facility] [place] [facility] [address] [id number] [place] [address]- 6160 Jul, [facility] [place] [facility] [address] [id number] [place] [address]- 5227 Jul, [facility] [place] [facility] [address] [id number] [place] [address]- 0807 Jul, [facility] [place] [facility] [address] [id number] [place] [address]- 1648 Jun, [facility] [place] [facility] [address] [id number] [place] [address]- 8780 Jun, [facility] [place] [facility] [address] [id number] [place] [address]- 6489 Jun, [facility] [place] [facility] [address] [id number] [place] [address]- 9532 19 Jun, 2014 [facility] [place] [facility] [address] [id number] [place] [address]- 6116 18 Jun, 2014 [facility] [place] [facility] [address] [id number] [place] [address]- 9253 18 Jun, 2014 [facility] [place] [facility] [address] [id number] [place] [address]- 4547 15 Jun, 2014 [facility] [place] [facility] [address] [id number] [place] [address]- 6713 15 Jun, 2014 [facility] [place] [facility] [address] [id number] [place] [address]- 1098 May, [facility] [place] [facility] [address] [id number] [place] [address]- 6958 May, [facility] [place] [facility] [address] [id number] [place] [address]- 2037 May, [facility] [place] [facility] [address] [id number] [place] [address]- 5917 May, [facility] [place] [facility] [address] [id number] [place] [address]- 6734 May, [facility] [place] [facility] [address] [id number] [place] [address]- 4733 May, [facility] [place] [facility] [address] [id number] [place] [address]- 9790 Apr, [facility] [place] [facility] [address] [id number], [place] [address]- 0121 Apr, [facility] [place] [facility] [address] [id number] [place] [address]- 3060 Apr, [facility] [place] [facility] [address] [id number], [place] [address]- 2975 Apr, [facility] [place] [facility] [address] [id number], [place] [address]- 0837 Apr, [facility] [place] [facility] [address] [id number] [place] [address]- 1738 Apr, [facility] [place] [facility] [address] [id number] [place] [address]- 3346 Apr, [facility] [place] [facility] [address] [id number] [place] [address]- 4399 Mar, [facility] [place] [facility] [address] [id number] [place] [address]- 7566 Mar, [facility] [place] [facility] [address] [id number] [place] [address]- 4833 Mar, [facility] [place] [facility] [address] [id number] [place] [address]- 6705 Mar, [facility] [place] [facility] [address] [id number] [place] [address]- 7653 Feb, [facility] [place] [facility] [address] [id number] [place] [address]- 1033 Feb, [facility] [place] [facility] [address] [id number] [place] [address]- 6665 Feb, [facility] [place] [facility] [address] [id number] [place] [address]- 3699 Feb, [facility] [place] [facility] [address] [id number] [place] [address]- 3839 Feb, [facility] [place] [facility] [address] [id number] [place] [address]- 6357 Feb, [facility] [place] [facility] [address] [id number] [place] [address]- 2044 Jan, [facility] [place] [facility] [address] [id number] [place] [address]- 3308 Jan, [facility] [place] [facility] [address] [id number] [place] [address]- 7128 Jan, [facility] [place] [facility] [address] [id number] [place] [address]- 3512 Jan, [facility] [place] [facility] [address] [id number] [place] [address]- 0239 Jan, [facility] [place] [facility] [address] [id number] [place] [address]- 5413 Jan, [facility] [place] [facility] [address] [id number] [place] [address]- 3442 Jan, [facility] [place] [facility] [address] [id number] [place] [address]- 0747 Jan, [facility] [place] [facility] [address] [id number] [place] [address]- 4535 Jan, [facility] [place] [facility] [address] [id number] [place] [address]- 6147 Jan, [facility] [place] [facility] [address] [id number] [place] [address]- 7375 Dec, [facility] [place] [facility] [address] [id number] [place] [address]- 9340 Dec, [facility] [place] [facility] [address] [id number] [place] [address]- 8654 Dec, [facility] [place] [facility] [address] [id number] [place] [address]- 3858 Dec, [facility] [place] [facility] [address] [id number] [place] [address]- 4352 November, [facility] [place] [facility] [address] [id number] [place] [address]- 5769 November, [facility] [place] [facility] [address] [id number] [place] [address]- 1793 November, [facility] [place] [facility] [address] [id number] [place] [address]- 4136 November, [facility] [place] [facility] [address] [id number] [place] [address]- 8584 Oct, [facility] [place] [facility] [address] [id number] [place] [address]- 8540 30 Oct, 2013 [facility] [place] [facility] [address] [id number] [place] [address]- 5855 Oct, [facility] [place] [facility] [address] [id number] [place] [address]- 8920 Oct, [facility] [place] [facility] [address] [id number] [place] [address] Oct, [facility] [place] [facility] [address] [id number] [place] [address] Oct, [facility] [place] [facility] [address] [id number] [place] [address] Oct, [facility] [place] [facility] [address] [id number] [place] [address] Oct, [facility] [place] [facility] [address] [id number] [place] [address] Sep, [facility] [place] [facility] [address] [id number] [place] [address] Sep, [facility] [place] [facility] [address] [id number] [place] [address] Sep, [facility] [place] [facility] [address] [id number] [place] [address] Sep, [facility] [place] [facility] [address] [id number] [place] [address] Sep, [facility] [place] [facility] [address] [id number] [place] [address] Sep, [facility] [place] [facility] [address] [id number] [place] [address] Aug, [facility] [place] [facility] [address] [id number] [place] [address] Aug, [facility] [place] [facility] [address] [id number] [place] [address] Jul, [facility] [place] [facility] [address] [id number] [place] [address] Jul, [facility] [place] [facility] [address] [id number] [place] [address] Jul, [facility] [place] [facility] [address] [id number] [place] [address] Jul, [facility] [place] [facility] [address] [id number] [place] [address] Jul, [facility] [place] [facility] [address] [id number] [place] [address] Jul, [facility] [place] [facility] [address] [id number] [place] [address] Jul, [facility] [place] [facility] [address] [id number] [place] [address] Jul, [facility] [place] [facility] [address] [id number], [place] [address] Jun, [facility] [place] [facility] [address] [id number] [place] [address] Jun, [facility] [place] [facility] [address] [id number], [place] [address] May, [facility] [place] [facility] [address] [id number], [place] [address]- [address] May, [facility] [place] [facility] [address] [id number], [place] [address] Apr, [facility] [place] [facility] [address] [id number] [place] [address] Apr, [facility] [place] [facility] [address] [id number], [place] [address] Apr, [facility] [place] [facility] [address] [id number], [place] [address] Apr, [facility] [place] [facility] [address] [id number], [place] [address] Apr, [facility] [place] [facility] [address] [id number] [place] [address] 29 Apr, 2013 [facility] [place] [facility] [address] [id number] [place] [address] Apr, [facility] [place] [facility] [address] [id number] [place] [address] Apr, [facility] [place] [facility] [address] [id number] [place] [address] Apr, [facility] [place] [facility] [address] [id number] [place] [address] Apr, [facility] [place] [facility] [address] [id number] [place] [address]- [address] Apr, [facility] [place] [facility] [address] [id number] [place] [address]- [address] Apr, [facility] [place] [facility] [address] [id number] [place] [address] Apr, [facility] [place] [facility] [address] [id number] [place] [address] 18 Apr, 2013 [facility] [place] [facility] [address] [id number] [place] [address] Apr, [facility] [place] [facility] [address] [id number], [place] [address] 27 Mar, 2012 [facility] [place] [facility] [address] [id number], [place] [address] 27 Sep, 2012 [facility] [place] [facility] [address] [id number] [place] [address] 26 Sep, 2012 [facility] [place] [facility] [address] [id number] [place] [address] 25 Sep, 2012 [facility] [place] [facility] [address] [id number] [place] [address] 16 Sep, 2012 [facility] [place] [facility] [address] [id number] [place] [address] Mar, [facility] [place] [facility] [address] [id number] [place] [address] Jan, [facility] [place] [facility] [address] [id number] [place] [address] Jan, [facility] [place] [facility] [address] [id number] [place] [address] Jan, [facility] [place] [facility] [address] [id number] [place] [address] Dec, [facility] [place] [facility] [address] [id number] [place] [address] Oct, [facility] [place] [facility] [address] [id number] [place] [address] 16 May, 2012 [facility] [place] [facility] [address] [id number] [place] [address] May, [facility] [place] [facility] [address] [id number] [place] [address] Jun, [facility] [place] [facility] [address] [id number] [place] [address] May, [facility] [place] [facility] [address] [id number] [place] [address] May, [facility] [place] [facility] [address] [id number] [place] [address] May, [facility] [place] [facility] [address] [id number] [place] [address] 14 Apr, 2011 [facility] [place] [facility] [address] [id number] [place] [address] Apr, [facility] [place] [facility] [address] [id number] [place] [address] Feb, [facility] [place] [facility] [address] [id number] [place] [address] 78[address] 16 Feb, 2011 [facility] [place] [facility] [address] [id number] [place] [address]12 10 Dec, 2010 [facility] [place] [facility] [address] [id number] [place] [address] 12 Oct, 2010 [facility] [place] [facility] [address] [id number] [place] [address] 19 Sep, 2010 [facility] [place] [facility] [address] [id number] [place] [address] 10 Sep, 2010 [facility] [place] [facility] [address] [id number] [place] [address] 9366 20 Jul, 2010 [facility] [place] [facility] [address] [id number] [place] [address] 6560 11 Jul, 2010 [facility] [place] [facility] [address] [id number] [place] [address] 31[address] 28 Jun, 2010 [facility] [place] [facility] [address] [id number] [place] [address]- [address]36 23 Jun, 2010 [facility] [place] [facility] [address] [id number] [place] [address] 2610 14 Jun, 2010 [facility] [place] [facility] [address] [id number] [place] [address] 6463 14 Jun, 2010 [facility] [place] [facility] [address] [id number] [place] [address] 2415 08 Jun, 2010 [facility] [place] [facility] [address] [id number] [place] [address] 6[address] 30 May, 2010 [facility] [place] [facility] [address] [id number] [place] [address]- 1631 23 May, 2010 [facility] [place] [facility] [address] [id number] [place] [address]99 17 May, 2010 [facility] [place] [facility] [address] [id number] [place] [address] 1328 17 May, 2010 [facility] [place] [facility] [id number] [place] [address] 17 May, 2010 [facility] [id number] [place] [address] May, [facility] [id number] [place] [address] Apr, [facility] [id number] [place] [address] Apr, [facility] [id number] [place] [address] Mar, [facility] [id number] [place] [address] Feb, [facility] [id number] [place] [address] Sep, [facility] [id number] [place] [address] Sep, [facility] [id number] [place] [address] Aug, [facility] [id number] [place] [address] Jun, [facility] [id number] [place] [address] Jun, [facility] [id number] [place] [address] May, [facility] [id number] [place] [address] Dec, [facility] [id number] [address] Sep, IMMUNIZATIONS No Known Immunizations SOCIAL HISTORY Never Assessed REASON FOR VISIT Controlled Med Refill 01/08 PLAN OF CARE VITAL SIGNS MEDICATIONS Medication Instructions Dosage Frequency Start Date End Date Duration Status [place] 5-325 MG Orally 4 times a day 1 tablet as needed Dec, 28 days Active Dextroamphetamine Sulfate 10 MG [...]
--- OUTSIDE RECORDS SUMMARY | 2018-06-27 07:38 | XMS REPORT ---
Author ARABELLA Elliott Organization [employer] Address Unknown Phone Unavailable Care Team Providers Care Senior Test Engineer Name Role Phone ARABELLA DIXON CP Unavailable [...] Instructions Start Date End Date Status Dosage Heath [facility] [address]-94 5-325 MG 3 times a day September 23, 2014 1 tablet as needed Dexedrine [facility] [address]-65 10 MG Orally 3 times per day. October 04, 2014 2 tabs Results No Known Results Summary Purpose [facility]
--- OUTSIDE RECORDS SUMMARY | 2018-06-27 07:38 | XMS REPORT ---
Author ARABELLA Elliott Organization [employer] Address Unknown Phone Unavailable Care Team Providers Care Environmental Geologist Name Role Phone ARABELLA DIXON CP Unavailable Allergies No Known Allergies Problems Problem Type Condition Code Onset Dates Condition Status Problem Diabetes mellitus without mention of complication, type II or unspecified type, not stated as uncontrolled 250.00 Active Problem Need for prophylactic vaccination and inoculation, Influenza V04.81 Active Medications Medication Code System Code Instructions Start Date End Date Status Dosage Diflucan [facility] [address]-99 150 MG Orally Once a day Mar 09, 2015 1 tablet Dexedrine [facility] [address]-49 10 MG Orally 3 times per day. PLEASE SCHEDULE DM APPT October 04, 2014 2 tabs Results No Known Results Summary Purpose [employer] Submission
--- OUTSIDE RECORDS SUMMARY | 2018-06-27 07:42 | XMS REPORT | Continuity of Care Document ---
Author Author [facility] Address Unknown Phone Unavailable Allergies Active Description Code Type Severity Reaction Onset Reported/Identified Relationship to Patient Clinical Status Yes EFFEXOR XR [id number] BRANDNAME N /A N/A Yes WELLBUTRIN [id number] BRANDNAME N /A N/A Yes NKANo Known Allergies NKA Miscellaneous Allergy Mild N/A 05/27/2009 Yes Ultram Drug Allergy N/A N/A 06/04/2010 Yes Ultram Drug Allergy 06/04/2010 Yes Wellbutrin Drug Allergy N/A N/A 10/23/2012 Yes Wellbutrin Drug Allergy 10/23/2012 Yes Effexor Drug Allergy N/A N/A 04/29/2013 Yes bupropion [id number] Drug Allergy Unknown N/A 05/23/2014 Yes venlafaxine [id number] Drug Allergy Unknown N/A 05/23/2014 Yes latex [id number] Drug Allergy Severe HIVES 02/02/2015 Medications There is no data. Problems Date Dx Coded Attending Type Code Diagnosis Diagnosed By 03/01/2008 465.9 Upper Respiratory Infection 03/01/2008 465.9 Upper Respiratory Infection 03/01/2008 465.9 Upper Respiratory Infection 03/01/2008 465.9 Upper Respiratory Infection 03/01/2008 465.9 Upper Respiratory Infection 03/01/2008 NANDA CALDWELL MD 465.9 Upper Respiratory Infection 03/01/2008 ARABELLA DIXON APRN 465.9 Upper Respiratory Infection 03/01/2008 ARABELLA DIXON APRN 465.9 Upper Respiratory Infection 03/01/2008 ARABELLA DIXON APRN 465.9 Upper Respiratory Infection 03/01/2008 ARABELLA DIXON APRN 465.9 Upper Respiratory Infection 03/01/2008 BILL JOYCE APRN 465.9 Upper Respiratory Infection 03/01/2008 ARABELLA DIXON APRN 465.9 Upper Respiratory Infection 03/01/2008 SATURNINO FRANCO DO 465.9 Upper Respiratory Infection 03/01/2008 ARABELLA DIXON APRN 465.9 Upper Respiratory Infection 03/01/2008 FRANCO DO, SATURNINO K 465.9 Upper Respiratory Infection 03/01/2008 FRANCO DO, SATURNINO K 465.9 Upper Respiratory Infection 03/01/2008 ARABELLA DIXON APRN 465.9 Upper Respiratory Infection 03/01/2008 ARABELLA DIXON APRN 465.9 Upper Respiratory Infection 03/01/2008 ARABELLA DIXON APRN 465.9 Upper Respiratory Infection 03/01/2008 FRANCO SATURNINO K 465.9 Upper Respiratory Infection 03/01/2008 FRANCO DO, SATURNINO K 465.9 Upper Respiratory Infection 04/07/2008 256.4 POLYCYSTIC OVARIAN SYNDROME 04/07/2008 278.00 OBESITY EXOGENOUS 04/07/2008 256.4 POLYCYSTIC OVARIAN SYNDROME 04/07/2008 278.00 OBESITY EXOGENOUS 04/07/2008 256.4 POLYCYSTIC OVARIAN SYNDROME 04/07/2008 278.00 OBESITY EXOGENOUS 04/07/2008 256.4 POLYCYSTIC OVARIAN SYNDROME 04/07/2008 278.00 OBESITY EXOGENOUS 04/07/2008 256.4 POLYCYSTIC OVARIAN SYNDROME 04/07/2008 278.00 OBESITY EXOGENOUS 04/07/2008 NANDA CALDWELL MD 256.4 POLYCYSTIC OVARIAN SYNDROME 04/07/2008 NANDA CALDWELL MD 278.00 OBESITY EXOGENOUS 04/07/2008 ARABELLA DIXON APRN 256.4 POLYCYSTIC OVARIAN SYNDROME 04/07/2008 ARABELLA DIXON APRN 278.00 OBESITY EXOGENOUS 04/07/2008 ARABELLA DIXON APRN 256.4 POLYCYSTIC OVARIAN SYNDROME 04/07/2008 ARABELLA DIXON APRN 278.00 OBESITY EXOGENOUS 04/07/2008 ARABELLA DIXON APRN 256.4 POLYCYSTIC OVARIAN SYNDROME 04/07/2008 ARABELLA DIXON APRN 278.00 OBESITY EXOGENOUS 04/07/2008 ARABELLA DIXON APRN 256.4 POLYCYSTIC OVARIAN SYNDROME 04/07/2008 ARABELLA DIXON APRN 278.00 OBESITY EXOGENOUS 04/07/2008 BILL JOYCE APRN A 256.4 POLYCYSTIC OVARIAN SYNDROME 04/07/2008 BILL JOYCE APRN A 278.00 OBESITY EXOGENOUS 04/07/2008 ARABELLA DIXON APRN 256.4 POLYCYSTIC OVARIAN SYNDROME 04/07/2008 ARABELLA DIXON APRN 278.00 OBESITY EXOGENOUS 04/07/2008 SATURNINO FRANCO DO K 256.4 POLYCYSTIC OVARIAN SYNDROME 04/07/2008 FRANCO DO, SATURNINO K 278.00 OBESITY EXOGENOUS 04/07/2008 AZCK CRUZ ARABELLA T 256.4 POLYCYSTIC OVARIAN SYNDROME 04/07/2008 ZACK CRUZ, ARABELLA T 278.00 OBESITY EXOGENOUS 04/07/2008 FRANCO DO, SATURNINO K 256.4 POLYCYSTIC OVARIAN SYNDROME 04/07/2008 FRANCO DO, SATURNINO K 278.00 OBESITY EXOGENOUS 04/07/2008 FRANCO DO, SATURNINO K 256.4 POLYCYSTIC OVARIAN SYNDROME 04/07/2008 FRANCO DO, SATURNINO K 278.00 OBESITY EXOGENOUS 04/07/2008 ZACK CRUZ ARABELLA T 256.4 POLYCYSTIC OVARIAN SYNDROME 04/07/2008 ZACK CRUZ ARABELLA T 278.00 OBESITY EXOGENOUS 04/07/2008 ARABELLA DIXON APRN T 256.4 POLYCYSTIC OVARIAN SYNDROME 04/07/2008 ZACK CRUZ ARABELLA T 278.00 OBESITY EXOGENOUS 04/07/2008 ZACK CRUZ ARABELLA T 256.4 POLYCYSTIC OVARIAN SYNDROME 04/07/2008 ZACK CRUZ ARABELLA T 278.00 OBESITY EXOGENOUS 04/07/2008 FRANCO DO, SATURNINO K 256.4 POLYCYSTIC OVARIAN SYNDROME 04/07/2008 FRANCO DO, SATURNINO K 278.00 OBESITY EXOGENOUS 04/07/2008 FRANCO DO, SATURNINO K 256.4 POLYCYSTIC OVARIAN SYNDROME 04/07/2008 FRANCO DO, SATURNINO K 278.00 OBESITY EXOGENOUS 06/09/2008 724.5 BACKACHE UNSPECIFIED 06/09/2008 724.5 BACKACHE UNSPECIFIED 06/09/2008 724.5 BACKACHE UNSPECIFIED 06/09/2008 724.5 BACKACHE UNSPECIFIED 06/09/2008 724.5 BACKACHE UNSPECIFIED 06/09/2008 NANDA CALDWELL MD 724.5 BACKACHE UNSPECIFIED 06/09/2008 ARABELLA DIXON APRN 724.5 BACKACHE UNSPECIFIED 06/09/2008 ARABELLA DIXON APRN 724.5 BACKACHE UNSPECIFIED 06/09/2008 ARABELLA DIXON APRN 724.5 BACKACHE UNSPECIFIED 06/09/2008 ARABELLA DIXON APRN 724.5 BACKACHE UNSPECIFIED 06/09/2008 BILL JOYCE APRN 724.5 BACKACHE UNSPECIFIED 06/09/2008 ARABELLA DIXON APRN 724.5 BACKACHE UNSPECIFIED 06/09/2008 OSCAR FRANCO DOA K 724.5 BACKACHE UNSPECIFIED 06/09/2008 ARABELLA DIXON APRN 724.5 BACKACHE UNSPECIFIED 06/09/2008 FRANCO DO, SATURNINO K 724.5 BACKACHE UNSPECIFIED 06/09/2008 FRANCO DO, SATURNINO K 724.5 BACKACHE UNSPECIFIED 06/09/2008 ARABELLA DIXON APRN 724.5 BACKACHE UNSPECIFIED 06/09/2008 ARABELLA DIXON APRN 724.5 BACKACHE UNSPECIFIED 06/09/2008 ARABELLA DIXON APRN 724.5 BACKACHE UNSPECIFIED 06/09/2008 FRANCO DO, SATURNINO K 724.5 BACKACHE UNSPECIFIED 06/09/2008 FRANCO DO, SATURNINO K 724.5 BACKACHE UNSPECIFIED 09/01/2008 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 09/01/2008 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 09/01/2008 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 09/01/2008 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 09/01/2008 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 09/01/2008 PAULETTE PERES, NANDA Rooney 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 09/01/2008 ARABELLA DIXON APRN 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 09/01/2008 ARABELLA DIXON APRN 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 09/01/2008 ARABELLA DIXON APRN 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 09/01/2008 ARABELLA DIXON APRN 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 09/01/2008 BILL JOYCE APRN 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 09/01/2008 ARABELLA DIXON APRN 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 09/01/2008 FRANCO DO, SATURNINO K 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 09/01/2008 ARABELLA DIXON APRN 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 09/01/2008 FRANCO DO, SATURNINO K 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 09/01/2008 FRANCO DO, SATURNINO K 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 09/01/2008 ARABELLA DIXON APRN 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 09/01/2008 ARABELLA DIXON APRN 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 09/01/2008 ARABELLA DIXON APRN 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 09/01/2008 FRANCO DO, SATURNINO K 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 09/01/2008 FARNCO DO, SATURNINO K 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 09/28/2008 729.5 Foot Pain ( soft Tissue) 09/28/2008 729.5 Foot Pain ( soft Tissue) 09/28/2008 729.5 Foot Pain ( soft Tissue) 09/28/2008 729.5 Foot Pain ( soft Tissue) 09/28/2008 729.5 Foot Pain ( soft Tissue) 09/28/2008 PAULETTE PERES, NANDA Rooney 729.5 Foot Pain (soft Tissue) 09/28/2008 ARABELLA DIXON APRN 729.5 Foot Pain (soft Tissue) 09/28/2008 ARABELLA DIXON APRN 729.5 Foot Pain (soft Tissue) 09/28/2008 ARABELLA DIXON APRN 729.5 Foot Pain (soft Tissue) 09/28/2008 ARABELLA DIXON APRN 729.5 Foot Pain (soft Tissue) 09/28/2008 BILL JOYCE APRN 729.5 Foot Pain (soft Tissue) 09/28/2008 ARABELLA DIXON APRN 729.5 Foot Pain (soft Tissue) 09/28/2008 SATURNINO FRANCO DO 729.5 Foot Pain (soft Tissue) 09/28/2008 ARABELLA DIXON APRN 729.5 Foot Pain (soft Tissue) 09/28/2008 SATURNINO FRANCO DO K 729.5 Foot Pain (soft Tissue) 09/28/2008 SATURNINO FRANCO DO K 729.5 Foot Pain (soft Tissue) 09/28/2008 ARABELLA DIXON APRN 729.5 Foot Pain (soft Tissue) 09/28/2008 ARABELLA DIXON APRN 729.5 Foot Pain (soft Tissue) 09/28/2008 ARABELLA DIXON APRN 729.5 Foot Pain (soft Tissue) 09/28/2008 SATURNINO FRANCO DO K 729.5 Foot Pain (soft Tissue) 09/28/2008 OSCAR FRANCO DOA K 729.5 Foot Pain (soft Tissue) 12/28/2008 782.0 Tingling ( paresthesia) 12/28/2008 782.0 Tingling ( paresthesia) 12/28/2008 782.0 Tingling ( paresthesia) 12/28/2008 782.0 Tingling ( paresthesia) 12/28/2008 782.0 Tingling ( paresthesia) 12/28/2008 NANDA CALDWELL MD 782.0 Tingling (paresthesia) 12/28/2008 ARABELLA DIXON APRN T 782.0 Tingling (paresthesia) 12/28/2008 ARABELLA DIXON APRN T 782.0 Tingling (paresthesia) 12/28/2008 ARABELLA DIXON APRN T 782.0 Tingling (paresthesia) 12/28/2008 ARABELLA DIXON APRN T 782.0 Tingling (paresthesia) 12/28/2008 MARIA DEL CARMENEFFIE CRUZ BILL A 782.0 Tingling (paresthesia) 12/28/2008 ARABELLA DIXON APRN T 782.0 Tingling (paresthesia) 12/28/2008 FRANCO DO, SATURNINO K 782.0 Tingling (paresthesia) 12/28/2008 ARABELLA DIXON APRN T 782.0 Tingling (paresthesia) 12/28/2008 FRANCO DO, SATURNINO K 782.0 Tingling (paresthesia) 12/28/2008 FRANCO DO, SATURNINO K 782.0 Tingling (paresthesia) 12/28/2008 ARABELLA DIXON APRN T 782.0 Tingling (paresthesia) 12/28/2008 ARABELLA DIXON APRN T 782.0 Tingling (paresthesia) 12/28/2008 ARABELLA DIXON APRN T 782.0 Tingling (paresthesia) 12/28/2008 FRANCO DO, SATURNINO K 782.0 Tingling (paresthesia) 12/28/2008 FRANCO DO, SATURNINO K 782.0 Tingling (paresthesia) 02/16/2009 626.4 irregular length of menstrual periods 02/16/2009 626.4 irregular length of menstrual periods 02/16/2009 626.4 irregular length of menstrual periods 02/16/2009 626.4 irregular length of menstrual periods 02/16/2009 626.4 IRREGULAR LENGTH OF MENSTRUAL PERIODS 02/16/2009 NANDA CALDWELL MD 626.4 IRREGULAR LENGTH OF MENSTRUAL PERIODS 02/16/2009 ARABELLA DIXON APRN T 626.4 IRREGULAR LENGTH OF MENSTRUAL PERIODS 02/16/2009 ARABELLA DIXON APRN T 626.4 IRREGULAR LENGTH OF MENSTRUAL PERIODS 02/16/2009 ARABELLA DIXON APRN T 626.4 IRREGULAR LENGTH OF MENSTRUAL PERIODS 02/16/2009 ARABELLA DIXON APRN T 626.4 IRREGULAR LENGTH OF MENSTRUAL PERIODS 02/16/2009 LG JOYCE APRNIDI A 626.4 IRREGULAR LENGTH OF MENSTRUAL PERIODS 02/16/2009 ARABELLA DIXON APRN T 626.4 IRREGULAR LENGTH OF MENSTRUAL PERIODS 02/16/2009 FRANCO DO, SATURNINO K 626.4 IRREGULAR LENGTH OF MENSTRUAL PERIODS 02/16/2009 ARABELLA DIXON APRN T 626.4 IRREGULAR LENGTH OF MENSTRUAL PERIODS 02/16/2009 FRANCO DO, SATURNINO K 626.4 IRREGULAR LENGTH OF MENSTRUAL PERIODS 02/16/2009 FRANCO DO, SATURNINO K 626.4 IRREGULAR LENGTH OF MENSTRUAL PERIODS 02/16/2009 ARABELLA DIXON APRN T 626.4 IRREGULAR LENGTH OF MENSTRUAL PERIODS 02/16/2009 ARABELLA DIXON APRN T 626.4 IRREGULAR LENGTH OF MENSTRUAL PERIODS 02/16/2009 ARABELLA DIXON APRN 626.4 IRREGULAR LENGTH OF MENSTRUAL PERIODS 02/16/2009 FRANCO DO, SATURNINO K 626.4 IRREGULAR LENGTH OF MENSTRUAL PERIODS 02/16/2009 FRANCO DO, SATURNINO K 626.4 IRREGULAR LENGTH OF MENSTRUAL PERIODS 04/06/2009 784.0 HEADACHE 04/06/2009 784.0 HEADACHE 04/06/2009 784.0 HEADACHE 04/06/2009 784.0 HEADACHE 04/06/2009 784.0 HEADACHE 04/06/2009 PAULETTE PERES, NANDA Rooney 784.0 HEADACHE 04/06/2009 ARABELLA DIXON APRN T 784.0 HEADACHE 04/06/2009 ARABELLA DIXON APRN T 784.0 HEADACHE 04/06/2009 ARABELLA DIXON APRN T 784.0 HEADACHE 04/06/2009 ARABELLA DIXON APRN T 784.0 HEADACHE 04/06/2009 MARIA DEL CARMENLG CHOU APRNIDI A 784.0 HEADACHE 04/06/2009 ARABELLA DIXON APRN T 784.0 HEADACHE 04/06/2009 FRANCO DO, SATURNINO K 784.0 HEADACHE 04/06/2009 ARABELLA DIXON APRN T 784.0 HEADACHE 04/06/2009 FRANCO DO, SATURNINO K 784.0 HEADACHE 04/06/2009 FRANCO DO, SATURNINO K 784.0 HEADACHE 04/06/2009 ARABELLA DIXON APRN T 784.0 HEADACHE 04/06/2009 ARABELLA DIXON APRN T 784.0 HEADACHE 04/06/2009 ARABELLA DIXON APRN T 784.0 HEADACHE 04/06/2009 SATURNINO FRANCO DO K 784.0 HEADACHE 04/06/2009 FRANCO SATURNINO EATON K 784.0 HEADACHE 04/12/2009 372.00 Conjunctivitis Acute Right Eye 04/12/2009 783.1 Recent Weight Gain Of Lbs 04/12/2009 372.00 Conjunctivitis Acute Right Eye 04/12/2009 783.1 Recent Weight Gain Of Lbs 04/12/2009 372.00 Conjunctivitis Acute Right Eye 04/12/2009 783.1 Recent Weight Gain Of Lbs 04/12/2009 372.00 Conjunctivitis Acute Right Eye 04/12/2009 783.1 Recent Weight Gain Of Lbs 04/12/2009 372.00 Conjunctivitis Acute Right Eye 04/12/2009 783.1 Recent Weight Gain Of Lbs 04/12/2009 NANDA CALDWELL MD 372.00 Conjunctivitis Acute Right Eye 04/12/2009 NANDA CALDWELL MD 783.1 Recent Weight Gain Of Lbs 04/12/2009 ARABELLA DIXON APRN T 372.00 Conjunctivitis Acute Right Eye 04/12/2009 ARABELLA DIXON APRN 783.1 Recent Weight Gain Of Lbs 04/12/2009 ARABELLA DIXON APRN T 372.00 Conjunctivitis Acute Right Eye 04/12/2009 ARABELLA DIXON APRN 783.1 Recent Weight Gain Of Lbs 04/12/2009 ARABELLA DIXON APRN T 372.00 Conjunctivitis Acute Right Eye 04/12/2009 ARABELLA DIXON APRN 783.1 Recent Weight Gain Of Lbs 04/12/2009 ARABELLA DIXON APRN T 372.00 Conjunctivitis Acute Right Eye 04/12/2009 ARABELLA DIXON APRN T 783.1 Recent Weight Gain Of Lbs 04/12/2009 BILL JOYCE APRN A 372.00 Conjunctivitis Acute Right Eye 04/12/2009 BILL JOYCE APRN A 783.1 Recent Weight Gain Of Lbs 04/12/2009 ARABELLA DIXON APRN T 372.00 Conjunctivitis Acute Right Eye 04/12/2009 ARABELLA DIXON APRN 783.1 Recent Weight Gain Of Lbs 04/12/2009 FRANCO DO, SATURNINO K 372.00 Conjunctivitis Acute Right Eye 04/12/2009 FRANCO DO, SATURNINO K 783.1 Recent Weight Gain Of Lbs 04/12/2009 ARABELLA DIXON APRN T 372.00 Conjunctivitis Acute Right Eye 04/12/2009 ARABELLA DIXON APRN T 783.1 Recent Weight Gain Of Lbs 04/12/2009 FRANCO DO, SATURNINO K 372.00 Conjunctivitis Acute Right Eye 04/12/2009 FRANCO DO, SATURNINO K 783.1 Recent Weight Gain Of Lbs 04/12/2009 FRANCO DO, SATURNINO K 372.00 Conjunctivitis Acute Right Eye 04/12/2009 FRANCO DO, SATURNINO K 783.1 Recent Weight Gain Of Lbs 04/12/2009 ARABELLA DIXON APRN T 372.00 Conjunctivitis Acute Right Eye 04/12/2009 ARABELLA DIXON APRN 783.1 Recent Weight Gain Of Lbs 04/12/2009 ARABELLA DIXON APRN T 372.00 Conjunctivitis Acute Right Eye 04/12/2009 ARABELLA DIXON APRN 783.1 Recent Weight Gain Of Lbs 04/12/2009 ARABELLA DIXON APRN T 372.00 Conjunctivitis Acute Right Eye 04/12/2009 ARABELLA DIXON APRN 783.1 Recent Weight Gain Of Lbs 04/12/2009 FRANCO DO, SATURNINO K 372.00 Conjunctivitis Acute Right Eye 04/12/2009 FRANCO DO, SATURNINO K 783.1 Recent Weight Gain Of Lbs 04/12/2009 FRANCO DO, SATURNINO K 372.00 Conjunctivitis Acute Right Eye 04/12/2009 FRANCO DO, SATURNINO K 783.1 Recent Weight Gain Of Lbs 05/16/2009 780.52 Insomnia 05/16/2009 786.2 Cough 05/16/2009 780.52 Insomnia 05/16/2009 786.2 Cough 05/16/2009 780.52 Insomnia 05/16/2009 786.2 Cough 05/16/2009 780.52 Insomnia 05/16/2009 786.2 Cough 05/16/2009 780.52 Insomnia 05/16/2009 786.2 Cough 05/16/2009 NANDA CALDWELL MD 780.52 Insomnia 05/16/2009 NANDA CALDWELL MD 786.2 Cough 05/16/2009 ARABELLA DIXON APRN 780.52 Insomnia 05/16/2009 ARABELLA DIXON APRN T 786.2 Cough 05/16/2009 ZACK HYDROELECTRIC PLANT MECHANICAL ENGINEERARABELLA T 780.52 Insomnia 05/16/2009 ZACK MAJANONARABELLA T 786.2 Cough 05/16/2009 ZACK MAJANONARABELLA T 780.52 Insomnia 05/16/2009 ZACK [employer] MECHANICAL ENGINEER, ARABELLA T 786.2 Cough 05/16/2009 ZACK MAJANONARABELLA T 780.52 Insomnia 05/16/2009 ARABELLA DIXON APRN T 786.2 Cough 05/16/2009 MARIA DEL CARMEN BILL CRUZ A 780.52 Insomnia 05/16/2009 MARIA DEL CARMEN [employer] MECHANICAL ENGINEER, BILL A 786.2 Cough 05/16/2009 ZACK MAJANONARABELLA T 780.52 Insomnia 05/16/2009 ARABELLA DIXON APRN T 786.2 Cough 05/16/2009 FRANCO DO, SATURNINO K 780.52 Insomnia 05/16/2009 FRANCO DO, SATURNINO K 786.2 Cough 05/16/2009 ARABELLA DIXON APRN T 780.52 Insomnia 05/16/2009 ARABELLA DIXON APRN T 786.2 Cough 05/16/2009 FRANCO DO, SATURNINO K 780.52 Insomnia 05/16/2009 FRANCO DO, SATURNINO K 786.2 Cough 05/16/2009 FRANCO DO, SATURNINO K 780.52 Insomnia 05/16/2009 FRANCO DO, SATURNINO K 786.2 Cough 05/16/2009 ARABELLA DIXON APRN T 780.52 Insomnia 05/16/2009 ZACK MAJANONARABELLA T 786.2 Cough 05/16/2009 ARABELLA DIXON APRN T 780.52 Insomnia 05/16/2009 ARABELLA DIXON APRN T 786.2 Cough 05/16/2009 ARABELLA DIXON APRN T 780.52 Insomnia 05/16/2009 ZACK HYDROELECT[employer] PL[employer] MECHANICAL ENGINEERARABELLA T 786.2 Cough 05/16/2009 FRANCO DO, SATURNINO K 780.52 Insomnia 05/16/2009 FRANCO DO, SATURNINO K 786.2 Cough 05/16/2009 FRANCO DO, SATURNINO K 780.52 Insomnia 05/16/2009 FRANCO DO, SATURNINO K 786.2 Cough 06/14/2009 132.0 Lice Head 06/14/2009 132.0 Lice Head 06/14/2009 132.0 Lice Head 06/14/2009 132.0 Lice Head 06/14/2009 132.0 Lice Head 06/14/2009 NANDA CALDWELL MD 132.0 Lice Head 06/14/2009 ZACK [employer] MECHANICAL ENGINEER, ARABELLA T 132.0 Lice Head 06/14/2009 ZACK HYDROELECT[employer] PL[employer] MECHANICAL ENGINEER, ARABELLA T 132.0 Lice Head 06/14/2009 ZACK HYDROELECT[employer] MECHANICAL ENGINEER, ARABELLA T 132.0 Lice Head 06/14/2009 ZACK HYDROELECT[employer] PLANT MECHANICAL ENGINEER, ARABELLA T 132.0 Lice Head 06/14/2009 MARIA DEL CARMEN HYDROE[employer]ANT MECHANICAL ENGINEER, BILL A 132.0 Lice Head 06/14/2009 ZACK HYDROELECT[employer] PL[employer] MECHANICAL ENGINEER, ARABELLA T 132.0 Lice Head 06/14/2009 FRANCO DO, SATURNINO K 132.0 Lice Head 06/14/2009 ZACK HYDROE[employer] MECHANICAL ENGINEER, ARABELLA T 132.0 Lice Head 06/14/2009 FRANCO DO, SATURNINO K 132.0 Lice Head 06/14/2009 FRANCO DO, SATURNINO K 132.0 Lice Head 06/14/2009 ZACK HYDROE[employer] MECHANICAL ENGINEER, ARABELLA T 132.0 Lice Head 06/14/2009 ZACK HYDROELECT[employer] MECHANICAL ENGINEER, ARABELLA T 132.0 Lice Head 06/14/2009 ZACK HYDROELECT[employer] MECHANICAL ENGINEER, ARABELLA T 132.0 Lice Head 06/14/2009 FRANCO DO, SATURNINO K 132.0 Lice Head 06/14/2009 FRANCO DO, SATURNINO K 132.0 Lice Head 08/10/2009 709.9 Skin Lesions 08/10/2009 V25.41 Surveillance Of Contraceptive Pill 08/10/2009 V72.31 Travel Services Professional Exam, Routine 08/10/2009 709.9 Skin Lesions 08/10/2009 V25.41 Surveillance Of Contraceptive Pill 08/10/2009 V72.31 Travel Services Professional Exam, Routine 08/10/2009 709.9 Skin Lesions 08/10/2009 V25.41 Surveillance Of Contraceptive Pill 08/10/2009 V72.31 Travel Services Professional Exam, Routine 08/10/2009 709.9 Skin Lesions 08/10/2009 V25.41 Surveillance Of Contraceptive Pill 08/10/2009 V72.31 Travel Services Professional Exam, Routine 08/10/2009 709.9 Skin Lesions 08/10/2009 V25.41 Surveillance Of Contraceptive Pill 08/10/2009 V72.31 Travel Services Professional Exam, Routine 08/10/2009 NANDA CALDWELL MD 709.9 Skin Lesions 08/10/2009 NANDA CALDWELL MD V25.41 Surveillance Of Contraceptive Pill 08/10/2009 NANDA CALDWELL MD M V72.31 Travel Services Professional Exam, Routine 08/10/2009 ARABELLA DIXON APRN 709.9 Skin Lesions 08/10/2009 ARABELLA DIXON APRN V25.41 Surveillance Of Contraceptive Pill 08/10/2009 ARABELLA DIXON APRN V72.31 Travel Services Professional Exam, Routine 08/10/2009 ARABELLA DIXON APRN 709.9 Skin Lesions 08/10/2009 ARABELLA DIXON APRN V25.41 Surveillance Of Contraceptive Pill 08/10/2009 ARABELLA DIXON APRN V72.31 Travel Services Professional Exam, Routine 08/10/2009 ARABELLA DIXON APRN 709.9 Skin Lesions 08/10/2009 ARABELLA DIXON APRN V25.41 Surveillance Of Contraceptive Pill 08/10/2009 ARABELLA DIXON APRN V72.31 Travel Services Professional Exam, Routine 08/10/2009 ARABELLA DIXON APRN 709.9 Skin Lesions 08/10/2009 ARABELLA DIXON APRN V25.41 Surveillance Of Contraceptive Pill 08/10/2009 ARABELLA DIXON APRN V72.31 Travel Services Professional Exam, Routine 08/10/2009 BILL JOYCE APRN A 709.9 Skin Lesions 08/10/2009 BILL JOYCE APRN A V25.41 Surveillance Of Contraceptive Pill 08/10/2009 BILL JOYCE APRN A V72.31 Travel Services Professional Exam, Routine 08/10/2009 ARABELLA DIXON APRN 709.9 Skin Lesions 08/10/2009 ARABELLA DIXON APRN V25.41 Surveillance Of Contraceptive Pill 08/10/2009 ARABELLA DIXON APRN V72.31 Travel Services Professional Exam, Routine 08/10/2009 FRANCO DO, SATURNINO K 709.9 Skin Lesions 08/10/2009 FRANCO DO, SATURNINO K V25.41 Surveillance Of Contraceptive Pill 08/10/2009 FRANCO DO, SATURNINO K V72.31 Travel Services Professional Exam, Routine 08/10/2009 ARABELLA DIXON APRN 709.9 Skin Lesions 08/10/2009 ARABELLA DIXON APRN V25.41 Surveillance Of Contraceptive Pill 08/10/2009 ARABELLA DIXON APRN V72.31 Travel Services Professional Exam, Routine 08/10/2009 FRANCO DO, SATURNINO K 709.9 Skin Lesions 08/10/2009 FRANCO DO, SATURNINO K V25.41 Surveillance Of Contraceptive Pill 08/10/2009 OSCAR FRANCO DOA K V72.31 Travel Services Professional Exam, Routine 08/10/2009 FRANCO OSCAR EATONA K 709.9 Skin Lesions 08/10/2009 OSCAR FRANCO DOA K V25.41 Surveillance Of Contraceptive Pill 08/10/2009 FRANCO DO SATURNINO K V72.31 Travel Services Professional Exam, Routine 08/10/2009 ARABELLA DIXON APRN 709.9 Skin Lesions 08/10/2009 ARABELLA DIXON APRN V25.41 Surveillance Of Contraceptive Pill 08/10/2009 ARABELLA DIXON APRN V72.31 Travel Services Professional Exam, Routine 08/10/2009 ARABELLA DIXON APRN 709.9 Skin Lesions 08/10/2009 ARABELLA DIXON APRN V25.41 Surveillance Of Contraceptive Pill 08/10/2009 ARABELLA DIXON APRN V72.31 Travel Services Professional Exam, Routine 08/10/2009 ARABELLA DIXON APRN 709.9 Skin Lesions 08/10/2009 ARABELLA DIXON APRN V25.41 Surveillance Of Contraceptive Pill 08/10/2009 ARABELLA DIXON APRN V72.31 Travel Services Professional Exam, Routine 08/10/2009 OSCAR FRANCO DOA K 709.9 Skin Lesions 08/10/2009 OSCAR FRANCO DOA K V25.41 Surveillance Of Contraceptive Pill 08/10/2009 OSCAR FRANCO DOA K V72.31 Travel Services Professional Exam, Routine 08/10/2009 OSCAR FRANCO DOA K 709.9 Skin Lesions 08/10/2009 OSCAR FRANCO DOA K V25.41 Surveillance Of Contraceptive Pill 08/10/2009 OSCAR FRANCO DOA K V72.31 Travel Services Professional Exam, Routine 08/30/2009 696.3 Pityriasis Rosea 08/30/2009 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 (tietze's Syndrome) 08/30/2009 782.1 Skin Disorder Exanthem 08/30/2009 696.3 Pityriasis Rosea 08/30/2009 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 (tietze's Syndrome) 08/30/2009 782.1 Skin Disorder Exanthem 08/30/2009 696.3 Pityriasis Rosea 08/30/2009 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 (tietze's Syndrome) 08/30/2009 782.1 Skin Disorder Exanthem 08/30/2009 696.3 Pityriasis Rosea 08/30/2009 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 (tietze's Syndrome) 08/30/2009 782.1 Skin Disorder Exanthem 08/30/2009 696.3 Pityriasis Rosea 08/30/2009 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 (tietze's Syndrome) 08/30/2009 782.1 Skin Disorder Exanthem 08/30/2009 NANDA CALDWELL MD 696.3 Pityriasis Rosea 08/30/2009 NANDA CALDWELL MD 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 (tietze's Syndrome) 08/30/2009 NANDA CALDWELL MD 782.1 Skin Disorder Exanthem 08/30/2009 ARABELLA DIXON APRN 696.3 Pityriasis Rosea 08/30/2009 ARABELLA DIXON APRN 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 (tietze's Syndrome) 08/30/2009 ARABELLA DIXON APRN 782.1 Skin Disorder Exanthem 08/30/2009 ARABELLA DIXON APRN 696.3 Pityriasis Rosea 08/30/2009 ARABELLA DIXON APRN 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 (tietze's Syndrome) 08/30/2009 ARABELLA DIXON APRN 782.1 Skin Disorder Exanthem 08/30/2009 ARABELLA DIXON APRN 696.3 Pityriasis Rosea 08/30/2009 ARABELLA DIXON APRN 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 (tietze's Syndrome) 08/30/2009 ARABELLA DIXON APRN 782.1 Skin Disorder Exanthem 08/30/2009 ARABELLA DIXON APRN 696.3 Pityriasis Rosea 08/30/2009 ARABELLA DIXON APRN 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 (tietze's Syndrome) 08/30/2009 ARABELLA DIXON APRN 782.1 Skin Disorder Exanthem 08/30/2009 BILL JOYCE APRN A 696.3 Pityriasis Rosea 08/30/2009 BILL JOYCE APRN A 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 (tietze's Syndrome) 08/30/2009 BILL JOYCE APRN A 782.1 Skin Disorder Exanthem 08/30/2009 ARABELLA DIXON APRN 696.3 Pityriasis Rosea 08/30/2009 ARABELLA DIXON APRN 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 (tietze's Syndrome) 08/30/2009 ARABELLA DIXON APRN 782.1 Skin Disorder Exanthem 08/30/2009 FRANCO DO, SATURNINO K 696.3 Pityriasis Rosea 08/30/2009 FRANCO DO, SATURNINO K 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 (tietze's Syndrome) 08/30/2009 FRANCO DO, SATURNINO K 782.1 Skin Disorder Exanthem 08/30/2009 ARABELLA DIXON APRN 696.3 Pityriasis Rosea 08/30/2009 ARABELLA DIXON APRN 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 (tietze's Syndrome) 08/30/2009 ARABELLA DIXON APRN 782.1 Skin Disorder Exanthem 08/30/2009 FRANCO DO, SATURNINO K 696.3 Pityriasis Rosea 08/30/2009 FRANCO DO, SATURNINO K 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 (tietze's Syndrome) 08/30/2009 FRANCO DO, SATURNINO K 782.1 Skin Disorder Exanthem 08/30/2009 FRANCO DO, SATURNINO K 696.3 Pityriasis Rosea 08/30/2009 FRANCO DO, SATURNINO K 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 (tietze's Syndrome) 08/30/2009 FRANCO DO, SATURNINO K 782.1 Skin Disorder Exanthem 08/30/2009 ARABELLA DIXON APRN 696.3 Pityriasis Rosea 08/30/2009 ARABELLA DIXON APRN 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 (tietze's Syndrome) 08/30/2009 ARABELLA DIXON APRN 782.1 Skin Disorder Exanthem 08/30/2009 ARABELLA DIXON APRN 696.3 Pityriasis Rosea 08/30/2009 ARABELLA DIXON APRN 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 (tietze's Syndrome) 08/30/2009 ARABELLA DIXNO APRN 782.1 Skin Disorder Exanthem 08/30/2009 ARABELLA DIXON APRN 696.3 Pityriasis Rosea 08/30/2009 ARABELLA DIXON APRN 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 (tietze's Syndrome) 08/30/2009 ARABELLA DIXON APRN 782.1 Skin Disorder Exanthem 08/30/2009 FRANCO DO, SATURNINO K 696.3 Pityriasis Rosea 08/30/2009 FRANCO DO, SATURNINO K 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 (tietze's Syndrome) 08/30/2009 FRANCO DO, SATURNINO K 782.1 Skin Disorder Exanthem 08/30/2009 FRANCO DO, SATURNINO K 696.3 Pityriasis Rosea 08/30/2009 FRANCO DO, SATURNINO K 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 (tietze's Syndrome) 08/30/2009 FRANCO DO, SATURNINO K 782.1 Skin Disorder Exanthem 09/11/2009 719.46 Pain In Joint , Lower Leg 09/11/2009 719.46 Pain In Joint , Lower Leg 09/11/2009 719.46 Pain In Joint , Lower Leg 09/11/2009 719.46 Pain In Joint , Lower Leg 09/11/2009 719.46 Pain In Joint , Lower Leg 09/11/2009 PAULETTE PERES, NANDA Rooney 719.46 Pain In Joint, Lower Leg 09/11/2009 ARABELLA DIXON APRN 719.46 Pain In Joint, Lower Leg 09/11/2009 ARABELLA DIXON APRN 719.46 Pain In Joint, Lower Leg 09/11/2009 ARABELLA DIXON APRN 719.46 Pain In Joint, Lower Leg 09/11/2009 ARABELLA DIXON APRN 719.46 Pain In Joint, Lower Leg 09/11/2009 BILL JOYCE APRN A 719.46 Pain In Joint, Lower Leg 09/11/2009 ARABELLA DIXON APRN 719.46 Pain In Joint, Lower Leg 09/11/2009 FRANCO DO, SATURNINO K 719.46 Pain In Joint, Lower Leg 09/11/2009 ARABELLA DIXON APRN 719.46 Pain In Joint, Lower Leg 09/11/2009 FRANCO DO, SATURNINO K 719.46 Pain In Joint, Lower Leg 09/11/2009 FRANCO DO, SATURNINO K 719.46 Pain In Joint, Lower Leg 09/11/2009 ARABELLA DIXON APRN 719.46 Pain In Joint, Lower Leg 09/11/2009 ARABELLA DIXON APRN 719.46 Pain In Joint, Lower Leg 09/11/2009 ARABELLA DIXON APRN 719.46 Pain In Joint, Lower Leg 09/11/2009 FRANCO DOOSCARA K 719.46 Pain In Joint, Lower Leg 09/11/2009 FRANCO DOOSCARA K 719.46 Pain In Joint, Lower Leg 09/19/2009 Ot 462 09/20/2009 462 Pharyngitis Acute 09/20/2009 784.49 Hoarseness 09/20/2009 462 Pharyngitis Acute 09/20/2009 784.49 Hoarseness 09/20/2009 462 Pharyngitis Acute 09/20/2009 784.49 Hoarseness 09/20/2009 462 Pharyngitis Acute 09/20/2009 784.49 Hoarseness 09/20/2009 462 Pharyngitis Acute 09/20/2009 784.49 Hoarseness 09/20/2009 NANDA CALDWELL MD 462 Pharyngitis Acute 09/20/2009 NANDA CALDWELL MD 784.49 Hoarseness 09/20/2009 ARABELLA DIXON APRN 462 Pharyngitis Acute 09/20/2009 ARABELLA DIXON APRN 784.49 Hoarseness 09/20/2009 ARABELLA DIXON APRN 462 Pharyngitis Acute 09/20/2009 ARABELLA DIXON APRN 784.49 Hoarseness 09/20/2009 ARABELLA DIXON APRN 462 Pharyngitis Acute 09/20/2009 ARABELLA DIXON APRN 784.49 Hoarseness 09/20/2009 ARABELLA DIXON APRN 462 Pharyngitis Acute 09/20/2009 ARABELLA DIXON APRN 784.49 Hoarseness 09/20/2009 BILL JOYCE APRN A 462 Pharyngitis Acute 09/20/2009 BILL JOYCE APRN A 784.49 Hoarseness 09/20/2009 ARABELLA DIXON APRN T 462 Pharyngitis Acute 09/20/2009 ARABELLA DIXON APRN 784.49 Hoarseness 09/20/2009 OSCAR FRANCO DOA K 462 Pharyngitis Acute 09/20/2009 OSCAR FRANCO DOA K 784.49 Hoarseness 09/20/2009 ARABELLA DIXON APRN T 462 Pharyngitis Acute 09/20/2009 ARABELLA DIXON APRN T 784.49 Hoarseness 09/20/2009 FRANCO DO, SATURNINO K 462 Pharyngitis Acute 09/20/2009 FRANCO DO, SATURNINO K 784.49 Hoarseness 09/20/2009 FRANCO DO, SATURNINO K 462 Pharyngitis Acute 09/20/2009 FRANCO DO, SATURNINO K 784.49 Hoarseness 09/20/2009 ARABELLA DIXON APRN T 462 Pharyngitis Acute 09/20/2009 ARABELLA DIXON APRN 784.49 Hoarseness 09/20/2009 ARABELLA DIXON APRN T 462 Pharyngitis Acute 09/20/2009 ARABELLA DIXON APRN T 784.49 Hoarseness 09/20/2009 ARABELLA DIXON APRN T 462 Pharyngitis Acute 09/20/2009 ARABELLA DIXON APRN T 784.49 Hoarseness 09/20/2009 FRANCO DO, SATURNINO K 462 Pharyngitis Acute 09/20/2009 FRANCO DO, SATURNINO K 784.49 Hoarseness 09/20/2009 FRANCO DO, SATURNINO K 462 Pharyngitis Acute 09/20/2009 FRANCO DO, SATURNINO K 784.49 Hoarseness 10/10/2009 701.9 Unspecified Hypertrophic And Atrophic Conditions Of Skin 10/10/2009 701.9 Unspecified Hypertrophic And Atrophic Conditions Of Skin 10/10/2009 701.9 Unspecified Hypertrophic And Atrophic Conditions Of Skin 10/10/2009 701.9 Unspecified Hypertrophic And Atrophic Conditions Of Skin 10/10/2009 701.9 Unspecified Hypertrophic And Atrophic Conditions Of Skin 10/10/2009 PAULETTE PERES, NANDA Rooney 701.9 Unspecified Hypertrophic And Atrophic Conditions Of Skin 10/10/2009 ARABELLA DIXON APRN 701.9 Unspecified Hypertrophic And Atrophic Conditions Of Skin 10/10/2009 ARABELLA DIXON APRN 701.9 Unspecified Hypertrophic And Atrophic Conditions Of Skin 10/10/2009 ARABELLA DIXON APRN 701.9 Unspecified Hypertrophic And Atrophic Conditions Of Skin 10/10/2009 ARABELLA DIXON APRN 701.9 Unspecified Hypertrophic And Atrophic Conditions Of Skin 10/10/2009 BILL JOYCE APRN 701.9 Unspecified Hypertrophic And Atrophic Conditions Of Skin 10/10/2009 ARABELLA DIXON APRN 701.9 Unspecified Hypertrophic And Atrophic Conditions Of Skin 10/10/2009 SALVADOR DOOSCARA K 701.9 Unspecified Hypertrophic And Atrophic Conditions Of Skin 10/10/2009 ARABELLA DIXON APRN 701.9 Unspecified Hypertrophic And Atrophic Conditions Of Skin 10/10/2009 FRANCO DO, SATURNINO K 701.9 Unspecified Hypertrophic And Atrophic Conditions Of Skin 10/10/2009 FRANCO DO, SATURNINO K 701.9 Unspecified Hypertrophic And Atrophic Conditions Of Skin 10/10/2009 ARABELLA DIXON APRN 701.9 Unspecified Hypertrophic And Atrophic Conditions Of Skin 10/10/2009 ARABELLA DIXON APRN 701.9 Unspecified Hypertrophic And Atrophic Conditions Of Skin 10/10/2009 ARABELLA DIXON APRN 701.9 Unspecified Hypertrophic And Atrophic Conditions Of Skin 10/10/2009 FRANCO DO, SATURNINO K 701.9 Unspecified Hypertrophic And Atrophic Conditions Of Skin 10/10/2009 FRANCO DO, SATURNINO K 701.9 Unspecified Hypertrophic And Atrophic Conditions Of Skin 10/31/2009 V68.1 ISSUE OF REPEAT PRESCRIPTIONS 10/31/2009 V68.1 ISSUE OF REPEAT PRESCRIPTIONS 10/31/2009 V68.1 ISSUE OF REPEAT PRESCRIPTIONS 10/31/2009 V68.1 ISSUE OF REPEAT PRESCRIPTIONS 10/31/2009 V68.1 ISSUE OF REPEAT PRESCRIPTIONS 10/31/2009 PAULETTE PERES, NANDA Rooney V68.1 ISSUE OF REPEAT PRESCRIPTIONS 10/31/2009 ARABELLA DIXON APRN V68.1 ISSUE OF REPEAT PRESCRIPTIONS 10/31/2009 ARABELLA DIXON APRN V68.1 ISSUE OF REPEAT PRESCRIPTIONS 10/31/2009 ARABELLA DIXON APRN V68.1 ISSUE OF REPEAT PRESCRIPTIONS 10/31/2009 ARABELLA DIXON APRN V68.1 ISSUE OF REPEAT PRESCRIPTIONS 10/31/2009 BILL JOYCE APRN V68.1 ISSUE OF REPEAT PRESCRIPTIONS 10/31/2009 ARABELLA DIXON APRN V68.1 ISSUE OF REPEAT PRESCRIPTIONS 10/31/2009 SALVADOR EATON SATURNINO K V68.1 ISSUE OF REPEAT PRESCRIPTIONS 10/31/2009 ARABELLA DIXON APRN V68.1 ISSUE OF REPEAT PRESCRIPTIONS 10/31/2009 FRANCO DO, SATURNINO K V68.1 ISSUE OF REPEAT PRESCRIPTIONS 10/31/2009 SATURNINO FRANCO DO V68.1 ISSUE OF REPEAT PRESCRIPTIONS 10/31/2009 ARABELLA DIXON APRN V68.1 ISSUE OF REPEAT PRESCRIPTIONS 10/31/2009 ARABELLA DIXON APRN V68.1 ISSUE OF REPEAT PRESCRIPTIONS 10/31/2009 ARABELLA DIXON APRN V68.1 ISSUE OF REPEAT PRESCRIPTIONS 10/31/2009 SATURNINO FRANCO DO V68.1 ISSUE OF REPEAT PRESCRIPTIONS 10/31/2009 SATURNINO FRANCO DO V68.1 ISSUE OF REPEAT PRESCRIPTIONS 11/06/2009 Ot 327.23 11/06/2009 Ot 401.9 12/01/2009 780.57 SLEEP APNEA 12/01/2009 780.57 SLEEP APNEA 12/01/2009 780.57 SLEEP APNEA 12/01/2009 780.57 SLEEP APNEA 12/01/2009 780.57 SLEEP APNEA 12/01/2009 PAULETTE PERES, NANDA Rooney 780.57 SLEEP APNEA 12/01/2009 ARABELLA DIXON APRN 780.57 SLEEP APNEA 12/01/2009 ARABELLA DIXON APRN 780.57 SLEEP APNEA 12/01/2009 ARABELLA DIXON APRN 780.57 SLEEP APNEA 12/01/2009 ARABELLA DIXON APRN 780.57 SLEEP APNEA 12/01/2009 BILL JOYCE APRN 780.57 SLEEP APNEA 12/01/2009 ARABELLA DIXON APRN 780.57 SLEEP APNEA 12/01/2009 SATURNINO FRANCO DO 780.57 SLEEP APNEA 12/01/2009 ARABELLA DIXON APRN 780.57 SLEEP APNEA 12/01/2009 SATURNINO FRANCO DO 780.57 SLEEP APNEA 12/01/2009 SATURNINO FRANCO DO 780.57 SLEEP APNEA 12/01/2009 ARABELLA DIXON APRN 780.57 SLEEP APNEA 12/01/2009 ARABELLA DIXON APRN 780.57 SLEEP APNEA 12/01/2009 ARABELLA DIXON APRN 780.57 SLEEP APNEA 12/01/2009 SATURNINO FRANCO DO K 780.57 SLEEP APNEA 12/01/2009 OSCAR FRANCO DOA K 780.57 SLEEP APNEA 01/02/2010 300.02 An Gen Anxiety 01/02/2010 V25.40 Contraceptive Surveillance Unspecified 01/02/2010 300.02 An Gen Anxiety 01/02/2010 V25.40 Contraceptive Surveillance Unspecified 01/02/2010 300.02 An Gen Anxiety 01/02/2010 V25.40 Contraceptive Surveillance Unspecified 01/02/2010 300.02 An Gen Anxiety 01/02/2010 V25.40 Contraceptive Surveillance Unspecified 01/02/2010 300.02 An Gen Anxiety 01/02/2010 V25.40 Contraceptive Surveillance Unspecified 01/02/2010 NANDA CALDWELL MD 300.02 An Gen Anxiety 01/02/2010 NANDA CALDWELL MD V25.40 Contraceptive Surveillance Unspecified 01/02/2010 ARABELLA DIXON APRN 300.02 An Gen Anxiety 01/02/2010 ARABELLA DIXON APRN V25.40 Contraceptive Surveillance Unspecified 01/02/2010 ARABELLA DIXON APRN 300.02 An Gen Anxiety 01/02/2010 ARABELLA DIXON APRN V25.40 Contraceptive Surveillance Unspecified 01/02/2010 ARABELLA DIXON APRN 300.02 An Gen Anxiety 01/02/2010 ARABELLA DIXON APRN V25.40 Contraceptive Surveillance Unspecified 01/02/2010 ARABELLA DIXON APRN 300.02 An Gen Anxiety 01/02/2010 ARABELLA DIXON APRN V25.40 Contraceptive Surveillance Unspecified 01/02/2010 BILL JOYCE APRN A 300.02 An Gen Anxiety 01/02/2010 BILL JOYCE APRN A V25.40 Contraceptive Surveillance Unspecified 01/02/2010 ARABELLA DIXON APRN 300.02 An Gen Anxiety 01/02/2010 ARABELLA DIXON APRN V25.40 Contraceptive Surveillance Unspecified 01/02/2010 FRANCO DO, SATURNINO K 300.02 An Gen Anxiety 01/02/2010 FRANCO DO, SATURNINO K V25.40 Contraceptive Surveillance Unspecified 01/02/2010 ARABELLA DIXON APRN T 300.02 An Gen Anxiety 01/02/2010 ARABELLA DIXON APRN T V25.40 Contraceptive Surveillance Unspecified 01/02/2010 FRANCO DO, SATURNINO K 300.02 An Gen Anxiety 01/02/2010 FRANCO DO, SATURNINO K V25.40 Contraceptive Surveillance Unspecified 01/02/2010 FRANCO DO, SATURNINO K 300.02 An Gen Anxiety 01/02/2010 FRANCO DO, SATURNINO K V25.40 Contraceptive Surveillance Unspecified 01/02/2010 ARABELLA DIXON APRN T 300.02 An Gen Anxiety 01/02/2010 ARABELLA DIXON APRN V25.40 Contraceptive Surveillance Unspecified 01/02/2010 ARABELLA DIXON APRN 300.02 An Gen Anxiety 01/02/2010 ARABELLA DIXON APRN V25.40 Contraceptive Surveillance Unspecified 01/02/2010 ARABELLA DIXON APRN 300.02 An Gen Anxiety 01/02/2010 ARABELLA DIXON APRN V25.40 Contraceptive Surveillance Unspecified 01/02/2010 FRANCO DO, SATURNINO K 300.02 An Gen Anxiety 01/02/2010 FRANCO DO, SATURNINO K V25.40 Contraceptive Surveillance Unspecified 01/02/2010 FRANCO DO, SATURNINO K 300.02 An Gen Anxiety 01/02/2010 FRANCO DO, SATURNINO K V25.40 Contraceptive Surveillance Unspecified 02/17/2010 Ot 305.1 02/17/2010 Ot 466.0 02/17/2010 Ot 786.05 02/17/2010 Ot 786.09 02/17/2010 Ot 786.59 02/19/2010 305.1 TOBACCO ABUSE 02/19/2010 305.1 TOBACCO ABUSE 02/19/2010 305.1 TOBACCO ABUSE 02/19/2010 305.1 TOBACCO ABUSE 02/19/2010 305.1 TOBACCO ABUSE 02/19/2010 PAULETTE PERES, NANDA Rooney 305.1 TOBACCO ABUSE 02/19/2010 ARABELLA DIXON APRN 305.1 TOBACCO ABUSE 02/19/2010 ARABELLA DIXON APRN 305.1 TOBACCO ABUSE 02/19/2010 ARABELLA DIXON APRN 305.1 TOBACCO ABUSE 02/19/2010 ARABELLA DIXON APRN 305.1 TOBACCO ABUSE 02/19/2010 BILL JOYCE APRN A 305.1 TOBACCO ABUSE 02/19/2010 ARABELLA DIXON APRN 305.1 TOBACCO ABUSE 02/19/2010 FRANCO DO, SATURNINO K 305.1 TOBACCO ABUSE 02/19/2010 ARABELLA DIXON APRN 305.1 TOBACCO ABUSE 02/19/2010 FRANCO DO, SATURNINO K 305.1 TOBACCO ABUSE 02/19/2010 FRANCO DO, SATURNINO K 305.1 TOBACCO ABUSE 02/19/2010 ARABELLA DIXON APRN 305.1 TOBACCO ABUSE 02/19/2010 ARABELLA DIXON APRN 305.1 TOBACCO ABUSE 02/19/2010 ARABELLA DIXON APRN 305.1 TOBACCO ABUSE 02/19/2010 FRANCO DO, SATURNINO K 305.1 TOBACCO ABUSE 02/19/2010 FRANCO DO, SATURNINO K 305.1 TOBACCO ABUSE 02/28/2010 717.2 Derangement Of Posterior Horn Of Medial Meniscus 02/28/2010 717.2 Derangement Of Posterior Horn Of Medial Meniscus 02/28/2010 717.2 Derangement Of Posterior Horn Of Medial Meniscus 02/28/2010 717.2 Derangement Of Posterior Horn Of Medial Meniscus 02/28/2010 717.2 Derangement Of Posterior Horn Of Medial Meniscus 02/28/2010 PAULETTE PERES, NANDA Rooney 717.2 Derangement Of Posterior Horn Of Medial Meniscus 02/28/2010 ARABELLA DIXON APRN 717.2 Derangement Of Posterior Horn Of Medial Meniscus 02/28/2010 ARABELLA DIXON APRN 717.2 Derangement Of Posterior Horn Of Medial Meniscus 02/28/2010 ARABELLA DIXON APRN 717.2 Derangement Of Posterior Horn Of Medial Meniscus 02/28/2010 ARABELLA DIXON APRN 717.2 Derangement Of Posterior Horn Of Medial Meniscus 02/28/2010 BILL JOYCE APRN 717.2 Derangement Of Posterior Horn Of Medial Meniscus 02/28/2010 ARABELLA DIXON APRN 717.2 Derangement Of Posterior Horn Of Medial Meniscus 02/28/2010 OSCAR FRANCO DOA K 717.2 Derangement Of Posterior Horn Of Medial Meniscus 02/28/2010 ARABELLA DIXON APRN 717.2 Derangement Of Posterior Horn Of Medial Meniscus 02/28/2010 SALVADOR EATON SATURNINO K 717.2 Derangement Of Posterior Horn Of Medial Meniscus 02/28/2010 FRANCO DO SATURNINO K 717.2 Derangement Of Posterior Horn Of Medial Meniscus 02/28/2010 ARABELLA DIXON APRN 717.2 Derangement Of Posterior Horn Of Medial Meniscus 02/28/2010 ARABELLA DIXON APRN 717.2 Derangement Of Posterior Horn Of Medial Meniscus 02/28/2010 ARABELLA DIXON APRN 717.2 Derangement Of Posterior Horn Of Medial Meniscus 02/28/2010 FRANCO DO SATURNINO K 717.2 Derangement Of Posterior Horn Of Medial Meniscus 02/28/2010 FRANCO DO SATURNINO K 717.2 Derangement Of Posterior Horn Of Medial Meniscus 03/22/2010 296.90 MOOD DISORDER 03/22/2010 296.90 MOOD DISORDER 03/22/2010 296.90 MOOD DISORDER 03/22/2010 296.90 MOOD DISORDER 03/22/2010 296.90 MOOD DISORDER 03/22/2010 PAULETTE PERES, NANDA Rooney 296.90 MOOD DISORDER 03/22/2010 ZACK CRUZ, ARABELLA T 296.90 MOOD DISORDER 03/22/2010 ZACK CRUZ, ARABELLA T 296.90 MOOD DISORDER 03/22/2010 ZACK CRUZ, ARABELAL T 296.90 MOOD DISORDER 03/22/2010 ARABELLA DIXON APRN T 296.90 MOOD DISORDER 03/22/2010 MARIA DEL CARMEN CRUZ BILL A 296.90 MOOD DISORDER 03/22/2010 ZACK CRUZ, ARABELLA T 296.90 MOOD DISORDER 03/22/2010 FRANCO DO, SATURNINO K 296.90 MOOD DISORDER 03/22/2010 ARABELLA DIXON APRN T 296.90 MOOD DISORDER 03/22/2010 FRANCO DO, SATURNINO K 296.90 MOOD DISORDER 03/22/2010 FRANCO DO, SATURNINO K 296.90 MOOD DISORDER 03/22/2010 ARABELLA DIXON APRN T 296.90 MOOD DISORDER 03/22/2010 ARABELLA DIXON APRN T 296.90 MOOD DISORDER 03/22/2010 ZACK CRUZ, ARABELLA T 296.90 MOOD DISORDER 03/22/2010 FRANCO DO, SATURNINO K 296.90 MOOD DISORDER 03/22/2010 FRANCO DO, SATURNINO K 296.90 MOOD DISORDER 04/16/2010 V58.69 Medication High Risk 04/16/2010 V58.69 Medication High Risk 04/16/2010 V58.69 Medication High Risk 04/16/2010 V58.69 Medication High Risk 04/16/2010 V58.69 Medication High Risk 04/16/2010 NANDA CALDWELL MD V58.69 Medication High Risk 04/16/2010 ARABELLA DIXON APRN T V58.69 Medication High Risk 04/16/2010 ARABELLA DIXON APRN T V58.69 Medication High Risk 04/16/2010 ARABELLA DIXON APRN V58.69 Medication High Risk 04/16/2010 ARABELLA DIXON APRN T V58.69 Medication High Risk 04/16/2010 LG JOYCE APRNIDI A V58.69 Medication High Risk 04/16/2010 ARABELLA DIXON APRN T V58.69 Medication High Risk 04/16/2010 FRANCO DO, SATURNINO K V58.69 Medication High Risk 04/16/2010 ARABELLA DIXON APRN T V58.69 Medication High Risk 04/16/2010 FRANCO DO, SATURNINO K V58.69 Medication High Risk 04/16/2010 FRANCO DO, SATURNINO K V58.69 Medication High Risk 04/16/2010 ZACK MAJANON, ARABELLA T V58.69 Medication High Risk 04/16/2010 ARABELLA DIXON APRN V58.69 Medication High Risk 04/16/2010 ZACK CRUZ, ARABELLA T V58.69 Medication High Risk 04/16/2010 FRANCO DO, SATURNINO K V58.69 Medication High Risk 04/16/2010 FRANCO DO, SATURNINO K V58.69 Medication High Risk 05/04/2010 250.90 DIABETES II, W/ UNSPECFIED COMPLICATIONS 05/04/2010 250.90 DIABETES II, W/ UNSPECFIED COMPLICATIONS 05/04/2010 250.90 DIABETES II, W/ UNSPECFIED COMPLICATIONS 05/04/2010 250.90 DIABETES II, W/ UNSPECFIED COMPLICATIONS 05/04/2010 250.90 DIABETES II, W/ UNSPECFIED COMPLICATIONS 05/04/2010 PAULETTE PERES, NANDA Rooney 250.90 DIABETES II, W/ UNSPECFIED COMPLICATIONS 05/04/2010 ARABELLA DIXON APRN T 250.90 DIABETES II, W/ UNSPECFIED COMPLICATIONS 05/04/2010 ARABELLA DIXON APRN T 250.90 DIABETES II, W/ UNSPECFIED COMPLICATIONS 05/04/2010 ARABELLA DIXON APRN T 250.90 DIABETES II, W/ UNSPECFIED COMPLICATIONS 05/04/2010 ARABELLA DIXON APRN T 250.90 DIABETES II, W/ UNSPECFIED COMPLICATIONS 05/04/2010 MARIA DEL CARMEN CRUZ, BILL Paiz 250.90 DIABETES II, W/ UNSPECFIED COMPLICATIONS 05/04/2010 ARABELLA DIXON APRN T 250.90 DIABETES II, W/ UNSPECFIED COMPLICATIONS 05/04/2010 FRANCO DO, SATURNINO K 250.90 DIABETES II, W/ UNSPECFIED COMPLICATIONS 05/04/2010 ARABELLA DIXON APRN T 250.90 DIABETES II, W/ UNSPECFIED COMPLICATIONS 05/04/2010 FRANCO DO, SATURNINO K 250.90 DIABETES II, W/ UNSPECFIED COMPLICATIONS 05/04/2010 FRANCO DO, SATURNINO K 250.90 DIABETES II, W/ UNSPECFIED COMPLICATIONS 05/04/2010 ARABELLA DIXON APRN T 250.90 DIABETES II, W/ UNSPECFIED COMPLICATIONS 05/04/2010 ARABELLA DIXON APRN T 250.90 DIABETES II, W/ UNSPECFIED COMPLICATIONS 05/04/2010 ARABELLA DIXON APRN 250.90 DIABETES II, W/ UNSPECFIED COMPLICATIONS 05/04/2010 FRANCO DO SATURNINO K 250.90 DIABETES II, W/ UNSPECFIED COMPLICATIONS 05/04/2010 FRANCO , SATURNINO K 250.90 DIABETES II, W/ UNSPECFIED COMPLICATIONS 05/23/2010 Ot 354.0 CARPAL TUNNEL SYNDROME 05/23/2010 Ot 729.1 MYALGIA AND MYOSITIS NOS 05/23/2010 Ot 782.0 SKIN SENSATION DISTURB 05/29/2010 354.0 Carpal Tunnel Syndrome 05/29/2010 354.0 Carpal Tunnel Syndrome 05/29/2010 354.0 Carpal Tunnel Syndrome 05/29/2010 354.0 Carpal Tunnel Syndrome 05/29/2010 354.0 Carpal Tunnel Syndrome 05/29/2010 PAULETTE PERES, NANDA Rooney 354.0 Carpal Tunnel Syndrome 05/29/2010 ARABELLA DIXON APRN 354.0 Carpal Tunnel Syndrome 05/29/2010 ARABELLA DIXON APRN 354.0 Carpal Tunnel Syndrome 05/29/2010 ARABELLA DIXON APRN 354.0 Carpal Tunnel Syndrome 05/29/2010 ARABELLA DIXON APRN 354.0 Carpal Tunnel Syndrome 05/29/2010 BILL JOYCE APRN 354.0 Carpal Tunnel Syndrome 05/29/2010 ARABELLA DIXON APRN 354.0 Carpal Tunnel Syndrome 05/29/2010 SALVADOR EATON SATURNINO K 354.0 Carpal Tunnel Syndrome 05/29/2010 ARABELLA DIXON APRN 354.0 Carpal Tunnel Syndrome 05/29/2010 SALVADOR EATON SATURNINO K 354.0 Carpal Tunnel Syndrome 05/29/2010 FRANCO DO SATURNINO K 354.0 Carpal Tunnel Syndrome 05/29/2010 ARABELLA DIXON APRN 354.0 Carpal Tunnel Syndrome 05/29/2010 ARABELLA DIXON APRN 354.0 Carpal Tunnel Syndrome 05/29/2010 ARABELLA DIXON APRN 354.0 Carpal Tunnel Syndrome 05/29/2010 FRANCO DO SATURNINO K 354.0 Carpal Tunnel Syndrome 05/29/2010 FRANCO DO, SATURNINO K 354.0 Carpal Tunnel Syndrome 06/04/2010 780.79 Malaise And Fatigue 06/04/2010 799.22 Irritibility 06/04/2010 780.79 Malaise And Fatigue 06/04/2010 799.22 Irritibility 06/04/2010 780.79 Malaise And Fatigue 06/04/2010 799.22 Irritibility 06/04/2010 780.79 Malaise And Fatigue 06/04/2010 799.22 Irritibility 06/04/2010 780.79 Malaise And Fatigue 06/04/2010 799.22 Irritibility 06/04/2010 NANDA CALDWELL MD 780.79 Malaise And Fatigue 06/04/2010 NANDA CALDWELL MD 799.22 Irritibility 06/04/2010 ARABELLA DIXON APRN 780.79 Malaise And Fatigue 06/04/2010 ARABELLA DIXON APRN 799.22 Irritibility 06/04/2010 ARABELLA DIXON APRN 780.79 Malaise And Fatigue 06/04/2010 ARABELLA DIXON APRN 799.22 Irritibility 06/04/2010 ARABELLA DIXON APRN 780.79 Malaise And Fatigue 06/04/2010 ARABELLA DIXON APRN 799.22 Irritibility 06/04/2010 ARABELLA DIXON APRN 780.79 Malaise And Fatigue 06/04/2010 ARABELLA DIXON APRN 799.22 Irritibility 06/04/2010 MARIA DEL CARMENBILL Silva APRN 780.79 Malaise And Fatigue 06/04/2010 MARIA DEL CARMENBILL Silva APRN A 799.22 Irritibility 06/04/2010 ARABELLA DIXON APRN 780.79 Malaise And Fatigue 06/04/2010 ARABELLA DIXON APRN 799.22 Irritibility 06/04/2010 FRANCO DO, SATURNINO K 780.79 Malaise And Fatigue 06/04/2010 FRANCO DO, SATURNINO K 799.22 Irritibility 06/04/2010 ARABELLA DIXON APRN 780.79 Malaise And Fatigue 06/04/2010 ARABELLA DIXON APRN T 799.22 Irritibility 06/04/2010 FRANCO DO, SATURNINO K 780.79 Malaise And Fatigue 06/04/2010 FRANCO DO, SATURNINO K 799.22 Irritibility 06/04/2010 FRANCO DO, SATURNINO K 780.79 Malaise And Fatigue 06/04/2010 FRANCO DO, SATURNINO K 799.22 Irritibility 06/04/2010 ARABELLA DIXON APRN T 780.79 Malaise And Fatigue 06/04/2010 ARABELLA DIXON APRN T 799.22 Irritibility 06/04/2010 ARABELLA DIXON APRN T 780.79 Malaise And Fatigue 06/04/2010 ARABELLA DIXON APRN T 799.22 Irritibility 06/04/2010 ARABELLA DIXON APRN T 780.79 Malaise And Fatigue 06/04/2010 ZACK CRUZ ARABELLA T 799.22 Irritibility 06/04/2010 FRANCO DO, SATURNINO K 780.79 Malaise And Fatigue 06/04/2010 FRANCO DO, SATURNINO K 799.22 Irritibility 06/04/2010 FRANCO DO, SATURNINO K 780.79 Malaise And Fatigue 06/04/2010 FRANCO DO, SATURNINO K 799.22 Irritibility 06/11/2010 008.8 Intestinal Infection Due To Other Organism Not Elsewhere Classified 06/11/2010 008.8 Intestinal Infection Due To Other Organism Not Elsewhere Classified 06/11/2010 008.8 Intestinal Infection Due To Other Organism Not Elsewhere Classified 06/11/2010 008.8 Intestinal Infection Due To Other Organism Not Elsewhere Classified 06/11/2010 008.8 Intestinal Infection Due To Other Organism Not Elsewhere Classified 06/11/2010 NANDA CALDWELL MD 008.8 Intestinal Infection Due To Other Organism Not Elsewhere Classified 06/11/2010 ARABELLA DIXON APRN 008.8 Intestinal Infection Due To Other Organism Not Elsewhere Classified 06/11/2010 ARABELLA DIXON APRN 008.8 Intestinal Infection Due To Other Organism Not Elsewhere Classified 06/11/2010 ARABELLA DIXON APRN 008.8 Intestinal Infection Due To Other Organism Not Elsewhere Classified 06/11/2010 ARABELLA DIXON APRN 008.8 Intestinal Infection Due To Other Organism Not Elsewhere Classified 06/11/2010 BILL JOYCE APRN 008.8 Intestinal Infection Due To Other Organism Not Elsewhere Classified 06/11/2010 ARABELLA DIXON APRN 008.8 Intestinal Infection Due To Other Organism Not Elsewhere Classified 06/11/2010 FRANCO DO SATURNINO K 008.8 Intestinal Infection Due To Other Organism Not Elsewhere Classified 06/11/2010 ARABELLA DIXON APRN 008.8 Intestinal Infection Due To Other Organism Not Elsewhere Classified 06/11/2010 FRANCO DO, SATURNINO K 008.8 Intestinal Infection Due To Other Organism Not Elsewhere Classified 06/11/2010 FRANCO DO, SATURNINO K 008.8 Intestinal Infection Due To Other Organism Not Elsewhere Classified 06/11/2010 ARABELLA DIXON APRN 008.8 Intestinal Infection Due To Other Organism Not Elsewhere Classified 06/11/2010 ARABELLA DIXON APRN 008.8 Intestinal Infection Due To Other Organism Not Elsewhere Classified 06/11/2010 ARABELLA DIXON APRN 008.8 Intestinal Infection Due To Other Organism Not Elsewhere Classified 06/11/2010 FRANCO DO, SATURNINO K 008.8 Intestinal Infection Due To Other Organism Not Elsewhere Classified 06/11/2010 FRANCO DO, SATURNINO K 008.8 Intestinal Infection Due To Other Organism Not Elsewhere Classified 07/17/2010 300.00 AN ANXIETY UNSPEC 07/17/2010 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 07/17/2010 300.00 AN ANXIETY UNSPEC 07/17/2010 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 07/17/2010 300.00 AN ANXIETY UNSPEC 07/17/2010 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 07/17/2010 300.00 AN ANXIETY UNSPEC 07/17/2010 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 07/17/2010 300.00 AN ANXIETY UNSPEC 07/17/2010 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 07/17/2010 NANDA CALDWELL MD 300.00 AN ANXIETY UNSPEC 07/17/2010 NANDA CALDWELL MD 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 07/17/2010 ARABELLA DIXON APRN 300.00 AN ANXIETY UNSPEC 07/17/2010 ARABELLA DIXON APRN 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 07/17/2010 ARABELLA DIOXN APRN 300.00 AN ANXIETY UNSPEC 07/17/2010 ARABELLA DIXON APRN 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 07/17/2010 ARABELLA DIXON APRN 300.00 AN ANXIETY UNSPEC 07/17/2010 ARABELLA DIXON APRN 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 07/17/2010 ARABELLA DIXON APRN 300.00 AN ANXIETY UNSPEC 07/17/2010 ARABELLA DIXON APRN 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 07/17/2010 BILL JOYCE APRN 300.00 AN ANXIETY UNSPEC 07/17/2010 BILL JOYCE APRN A 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 07/17/2010 ARABELLA DIXON APRN 300.00 AN ANXIETY UNSPEC 07/17/2010 ARABELLA DIXON APRN 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 07/17/2010 FRANCO DO, SATURNINO K 300.00 AN ANXIETY UNSPEC 07/17/2010 FRANCO DO, SATURNINO K 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 07/17/2010 ARABELLA DIXON APRN 300.00 AN ANXIETY UNSPEC 07/17/2010 ARABELLA DIXON APRN 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 07/17/2010 FRANCO DO, SATURNINO K 300.00 AN ANXIETY UNSPEC 07/17/2010 FRANCO DO, SATURNINO K 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 07/17/2010 FRANCO DO, SATURNINO K 300.00 AN ANXIETY UNSPEC 07/17/2010 FRANCO DO, SATURNINO K 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 07/17/2010 ARABELLA DIXON APRN 300.00 AN ANXIETY UNSPEC 07/17/2010 ARABELLA DIXON APRN 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 07/17/2010 ARABELLA DIXON APRN 300.00 AN ANXIETY UNSPEC 07/17/2010 ARABELLA DIXON APRN 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 07/17/2010 ARABELLA DIXON APRN 300.00 AN ANXIETY UNSPEC 07/17/2010 ARABELLA DIXON APRN 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 07/17/2010 FRANCO DO, SATURNINO K 300.00 AN ANXIETY UNSPEC 07/17/2010 FRANCO DO, SATURNINO K 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 07/17/2010 FRANCO DO, SATURNINO K 300.00 AN ANXIETY UNSPEC 07/17/2010 FRANCO DO, SATURNINO K 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 07/23/2010 692.9 Dermatitis Contact Unspecified 07/23/2010 692.9 Dermatitis Contact Unspecified 07/23/2010 692.9 Dermatitis Contact Unspecified 07/23/2010 692.9 Dermatitis Contact Unspecified 07/23/2010 692.9 Dermatitis Contact Unspecified 07/23/2010 PAULETTE PERES, NANDA Rooney 692.9 Dermatitis Contact Unspecified 07/23/2010 ARABELLA DIXON APRN 692.9 Dermatitis Contact Unspecified 07/23/2010 ARABELLA DIXON APRN 692.9 Dermatitis Contact Unspecified 07/23/2010 ARABELLA DIXON APRN 692.9 Dermatitis Contact Unspecified 07/23/2010 ARABELLA DIXON APRN 692.9 Dermatitis Contact Unspecified 07/23/2010 BILL JOYCE APRN 692.9 Dermatitis Contact Unspecified 07/23/2010 ARABELLA DIXON APRN 692.9 Dermatitis Contact Unspecified 07/23/2010 FRANCO DO, SATURNINO K 692.9 Dermatitis Contact Unspecified 07/23/2010 ARABELLA DIXON APRN 692.9 Dermatitis Contact Unspecified 07/23/2010 FRANCO DO, SATURNINO K 692.9 Dermatitis Contact Unspecified 07/23/2010 FRANCO DO, SATURNINO K 692.9 Dermatitis Contact Unspecified 07/23/2010 ARABELLA DIXON APRN 692.9 Dermatitis Contact Unspecified 07/23/2010 ARABELLA DIXON APRN 692.9 Dermatitis Contact Unspecified 07/23/2010 ARABELLA DIXON APRN 692.9 Dermatitis Contact Unspecified 07/23/2010 FRANCO DO, SATURNINO K 692.9 Dermatitis Contact Unspecified 07/23/2010 FRANCO DO, SATURNINO K 692.9 Dermatitis Contact Unspecified 07/24/2010 Ot 922.31 BACK CONTUSION 07/24/2010 Ot 959.19 OTH INJURY OF OTHER SITES OF TRUNK 07/24/2010 Ot E000.8 OTHER EXTERNAL CAUSE STATUS 07/24/2010 Ot E849.0 ACCIDENT IN HOME 07/24/2010 Ot E885.9 FALL FROM SLIPPING, TRIPPING, OR STUMBLI 08/01/2010 723.1 CERVICALGIA 08/01/2010 723.1 CERVICALGIA 08/01/2010 723.1 CERVICALGIA 08/01/2010 723.1 CERVICALGIA 08/01/2010 723.1 CERVICALGIA 08/01/2010 NANDA CALDWELL MD 723.1 CERVICALGIA 08/01/2010 ARABELLA DIXON APRN 723.1 CERVICALGIA 08/01/2010 ARABELLA DIXON APRN 723.1 CERVICALGIA 08/01/2010 ARABELLA DIXON APRN 723.1 CERVICALGIA 08/01/2010 ARABELLA DIXON APRN 723.1 CERVICALGIA 08/01/2010 BILL JOYCE APRN A 723.1 CERVICALGIA 08/01/2010 ARABELLA DIXON APRN 723.1 CERVICALGIA 08/01/2010 FRANCO DO, SATURNINO K 723.1 CERVICALGIA 08/01/2010 ZACK MAJANON ARABELLA T 723.1 CERVICALGIA 08/01/2010 FRANCO DO, SATURNINO K 723.1 CERVICALGIA 08/01/2010 FRANCO DO, SATURNINO K 723.1 CERVICALGIA 08/01/2010 ARABELLA DIXON APRN T 723.1 CERVICALGIA 08/01/2010 ZACK CURZ, ARABELLA T 723.1 CERVICALGIA 08/01/2010 ZACK CRUZ, ARABELLA T 723.1 CERVICALGIA 08/01/2010 FRANCO DO, SATURNINO K 723.1 CERVICALGIA 08/01/2010 FRANCO DO, SATURNINO K 723.1 CERVICALGIA 09/19/2010 780.50 Sleep Disturbance, Unspecified 09/19/2010 780.50 Sleep Disturbance, Unspecified 09/19/2010 780.50 Sleep Disturbance, Unspecified 09/19/2010 780.50 Sleep Disturbance, Unspecified 09/19/2010 780.50 Sleep Disturbance, Unspecified 09/19/2010 PAULETTE PERES, NANDA Rooney 780.50 Sleep Disturbance, Unspecified 09/19/2010 ARABELLA DIXON APRN T 780.50 Sleep Disturbance, Unspecified 09/19/2010 ARABELLA DIXON APRN T 780.50 Sleep Disturbance, Unspecified 09/19/2010 ARABELLA DIXON APRN T 780.50 Sleep Disturbance, Unspecified 09/19/2010 ARABELLA DIXON APRN T 780.50 Sleep Disturbance, Unspecified 09/19/2010 MARIA DEL CARMEN CRUZ, BILL Paiz 780.50 Sleep Disturbance, Unspecified 09/19/2010 ARABELLA DIXON APRN T 780.50 Sleep Disturbance, Unspecified 09/19/2010 FRANCO DO, SATURNINO K 780.50 Sleep Disturbance, Unspecified 09/19/2010 ZACK CRUZ ARABELLA T 780.50 Sleep Disturbance, Unspecified 09/19/2010 FRANCO DO, SATURNINO K 780.50 Sleep Disturbance, Unspecified 09/19/2010 FRANCO DO, SATURNINO K 780.50 Sleep Disturbance, Unspecified 09/19/2010 ARABELLA DIXON APRN T 780.50 Sleep Disturbance, Unspecified 09/19/2010 ARABELLA DIXON APRN T 780.50 Sleep Disturbance, Unspecified 09/19/2010 ARABELLA DIXON APRN T 780.50 Sleep Disturbance, Unspecified 09/19/2010 FRANCO DO, SATURNINO K 780.50 Sleep Disturbance, Unspecified 09/19/2010 FRANCO DO, SATURNINO K 780.50 Sleep Disturbance, Unspecified 10/05/2010 Ot 256.4 POLYCYSTIC OVARIES 10/05/2010 Ot 288.60 LEUKOCYTOSIS , UNSPECIFIED 10/05/2010 Ot 305.1 TOBACCO USE DISORDER 10/05/2010 Ot 787.91 DIARRHEA 10/05/2010 Ot 789.03 ABDOMINAL PAIN, RIGHT LOWER QUADRANT 10/05/2010 Ot 790.29 OTHER ABNORMAL GLUCOSE 10/05/2010 Ot V58.69 OTH MED,LT, CURRENT USE 10/07/2010 789.00 Abdominal Pain Unspecified Site 10/07/2010 789.00 Abdominal Pain Unspecified Site 10/07/2010 789.00 Abdominal Pain Unspecified Site 10/07/2010 789.00 Abdominal Pain Unspecified Site 10/07/2010 789.00 Abdominal Pain Unspecified Site 10/07/2010 PAULETTE PERES, NANDA Rooney 789.00 Abdominal Pain Unspecified Site 10/07/2010 ARABELLA DIXON APRN 789.00 Abdominal Pain Unspecified Site 10/07/2010 ARABELLA DIXON APRN 789.00 Abdominal Pain Unspecified Site 10/07/2010 ARABELLA DIXON APRN 789.00 Abdominal Pain Unspecified Site 10/07/2010 ARABELLA DIXON APRN 789.00 Abdominal Pain Unspecified Site 10/07/2010 BILL JOYCE APRN 789.00 Abdominal Pain Unspecified Site 10/07/2010 ARABELLA DIXON APRN 789.00 Abdominal Pain Unspecified Site 10/07/2010 FRANCO DO, SATURNINO K 789.00 Abdominal Pain Unspecified Site 10/07/2010 ARABELLA DIXON APRN 789.00 Abdominal Pain Unspecified Site 10/07/2010 FRANCO DO, SATURNINO K 789.00 Abdominal Pain Unspecified Site 10/07/2010 FRANCO DO, SATURNINO K 789.00 Abdominal Pain Unspecified Site 10/07/2010 ARABELLA DIXON APRN 789.00 Abdominal Pain Unspecified Site 10/07/2010 ARABELLA DIXON APRN T 789.00 Abdominal Pain Unspecified Site 10/07/2010 ARABELLA DIXON APRN 789.00 Abdominal Pain Unspecified Site 10/07/2010 FRANCO DO, SATURNINO K 789.00 Abdominal Pain Unspecified Site 10/07/2010 FRANCO DO, SATURNINO K 789.00 Abdominal Pain Unspecified Site 10/09/2010 Ot V67.9 FOLLOW-UP EXAM NOS 10/22/2010 724.3 SCIATICA 10/22/2010 724.3 SCIATICA 10/22/2010 724.3 SCIATICA 10/22/2010 724.3 SCIATICA 10/22/2010 724.3 SCIATICA 10/22/2010 NANDA CALDWELL MD 724.3 SCIATICA 10/22/2010 ARABELLA DIXON APRN 724.3 SCIATICA 10/22/2010 ARABELLA DIXON APRN 724.3 SCIATICA 10/22/2010 ARABELLA DIXON APRN 724.3 SCIATICA 10/22/2010 ARABELLA DIXON APRN 724.3 SCIATICA 10/22/2010 BILL JOYCE APRN 724.3 SCIATICA 10/22/2010 ARABELLA DIXON APRN 724.3 SCIATICA 10/22/2010 FRANCO DO, SATURNINO K 724.3 SCIATICA 10/22/2010 ARABELLA DIXON APRN 724.3 SCIATICA 10/22/2010 FRANCO DO, SATURNINO K 724.3 SCIATICA 10/22/2010 FRANCO DO, SATURNINO K 724.3 SCIATICA 10/22/2010 ARABELLA DIXON APRN 724.3 SCIATICA 10/22/2010 ARABELLA DIXON APRN 724.3 SCIATICA 10/22/2010 ARABELLA DIXON APRN 724.3 SCIATICA 10/22/2010 FRANCO DO, SATURNINO K 724.3 SCIATICA 10/22/2010 FRANCO DO, SATURNINO K 724.3 SCIATICA 02/25/2011 244.9 UNSPECIFIED ACQUIRED HYPOTHYROIDISM 02/25/2011 244.9 UNSPECIFIED ACQUIRED HYPOTHYROIDISM 02/25/2011 244.9 UNSPECIFIED ACQUIRED HYPOTHYROIDISM 02/25/2011 244.9 UNSPECIFIED ACQUIRED HYPOTHYROIDISM 02/25/2011 244.9 UNSPECIFIED ACQUIRED HYPOTHYROIDISM 02/25/2011 NANDA CALDWELL MD 244.9 UNSPECIFIED ACQUIRED HYPOTHYROIDISM 02/25/2011 ARABELLA DIXON APRN 244.9 UNSPECIFIED ACQUIRED HYPOTHYROIDISM 02/25/2011 ARABELLA DIXON APRN 244.9 UNSPECIFIED ACQUIRED HYPOTHYROIDISM 02/25/2011 ARABELLA DIXON APRN 244.9 UNSPECIFIED ACQUIRED HYPOTHYROIDISM 02/25/2011 ZACK HY[employer]OELECT[employer]IC PL[employer] MECHANICAL ENGINEER, ARABELLA T 244.9 UNSPECIFIED ACQUIRED HYPOTHYROIDISM 02/25/2011 MARIA DEL CARMENEFFIE CRUZ, BILL A 244.9 UNSPECIFIED ACQUIRED HYPOTHYROIDISM 02/25/2011 ARABELLA DIXON APRN T 244.9 UNSPECIFIED ACQUIRED HYPOTHYROIDISM 02/25/2011 FRANCO DO, SATURNINO K 244.9 UNSPECIFIED ACQUIRED HYPOTHYROIDISM 02/25/2011 ARABELLA DIXON APRN T 244.9 UNSPECIFIED ACQUIRED HYPOTHYROIDISM 02/25/2011 FRANCO DO, SATURNINO K 244.9 UNSPECIFIED ACQUIRED HYPOTHYROIDISM 02/25/2011 FRANCO DO, SATURNINO K 244.9 UNSPECIFIED ACQUIRED HYPOTHYROIDISM 02/25/2011 ARABELLA DIXON APRN T 244.9 UNSPECIFIED ACQUIRED HYPOTHYROIDISM 02/25/2011 ARABELLA DIXON APRN T 244.9 UNSPECIFIED ACQUIRED HYPOTHYROIDISM 02/25/2011 ARABELLA DIXON APRN T 244.9 UNSPECIFIED ACQUIRED HYPOTHYROIDISM 02/25/2011 FRANCO DO, SATURNINO K 244.9 UNSPECIFIED ACQUIRED HYPOTHYROIDISM 02/25/2011 FRANCO DO, SATURNINO K 244.9 UNSPECIFIED ACQUIRED HYPOTHYROIDISM 03/18/2011 376.30 Proptosis 03/18/2011 376.30 Proptosis 03/18/2011 376.30 Proptosis 03/18/2011 376.30 Proptosis 03/18/2011 376.30 PROPTOSIS 03/18/2011 PAULETTE PERES, NANDA Rooney 376.30 PROPTOSIS 03/18/2011 ZACK CRUZ ARABELLA T 376.30 PROPTOSIS 03/18/2011 ZACK CRUZ ARABELLA T 376.30 PROPTOSIS 03/18/2011 ARABELLA DIXON APRN T 376.30 PROPTOSIS 03/18/2011 ARABELLA DIXON APRN T 376.30 PROPTOSIS 03/18/2011 MARIA DEL CARMEN CRUZ, BILL A 376.30 PROPTOSIS 03/18/2011 ZACK CRUZ ARABELLA T 376.30 PROPTOSIS 03/18/2011 FRANCO DO, SATURNINO K 376.30 PROPTOSIS 03/18/2011 ARABELLA DIXON APRN T 376.30 PROPTOSIS 03/18/2011 FRANCO DO, SATURNINO K 376.30 PROPTOSIS 03/18/2011 FRANCO DO, SATURNINO K 376.30 PROPTOSIS 03/18/2011 ARABELLA DIXON APRN T 376.30 PROPTOSIS 03/18/2011 ARABELLA DIXON APRN T 376.30 PROPTOSIS 03/18/2011 ARABELLA DIXON APRN 376.30 PROPTOSIS 03/18/2011 FRANCO DO SATURNINO Hernandez 376.30 PROPTOSIS 03/18/2011 FRANCO DO, SATURNINO K 376.30 PROPTOSIS 04/29/2011 Ot 836.2 TEAR MENISCUS NEC-CURREN 04/29/2011 Ot 959.7 LOWER LEG INJURY NOS 04/29/2011 Ot E000.8 OTHER EXTERNAL CAUSE STATUS 04/29/2011 Ot E001.1 ACTIVITIES INVOLVING RUNNING 04/29/2011 Ot E849.0 ACCIDENT IN HOME 04/29/2011 Ot E888.9 FALL NOS 04/29/2011 Ot E927.0 OVEREXERTION FROM SUDDEN STRENUOUS MOVEM 05/07/2011 Ot 722.10 LUMBAR DISC DISPLACEMENT 05/07/2011 Ot 722.52 LUMB/ LUMBOSAC DISC DEGEN 05/07/2011 Ot V57.1 PHYSICAL THERAPY NEC 05/28/2012 V04.81 FLU DX (3 YRS AND ABOVE, IM) 05/28/2012 V04.81 FLU DX (3 YRS AND ABOVE, IM) 05/28/2012 V04.81 FLU DX (3 YRS AND ABOVE, IM) 05/28/2012 V04.81 FLU DX (3 YRS AND ABOVE, IM) 05/28/2012 V04.81 FLU DX (3 YRS AND ABOVE, IM) 05/28/2012 NANDA CALDWELL MD V04.81 FLU DX (3 YRS AND ABOVE, IM) 05/28/2012 ARABELLA DIXON APRN V04.81 FLU DX (3 YRS AND ABOVE, IM) 05/28/2012 ARABELLA DIXON APRN V04.81 FLU DX (3 YRS AND ABOVE, IM) 05/28/2012 ARABELLA DIXON APRN V04.81 FLU DX (3 YRS AND ABOVE, IM) 05/28/2012 ARABELLA DIXON APRN V04.81 FLU DX (3 YRS AND ABOVE, IM) 05/28/2012 BILL JOYCE APRN V04.81 FLU DX (3 YRS AND ABOVE, IM) 05/28/2012 ARABELLA DIXON APRN V04.81 FLU DX (3 YRS AND ABOVE, IM) 05/28/2012 SATURNINO FRANCO DO V04.81 FLU DX (3 YRS AND ABOVE, IM) 05/28/2012 ZACK [employer] MECHANICAL ENGINEER, ARABELLA T V04.81 FLU DX (3 YRS AND ABOVE, IM) 05/28/2012 FRANCO DO, SATURNINO K V04.81 FLU DX (3 YRS AND ABOVE, IM) 05/28/2012 FRANCO DO, SATURNINO K V04.81 FLU DX (3 YRS AND ABOVE, IM) 05/28/2012 ARABELLA DIXON APRN V04.81 FLU DX (3 YRS AND ABOVE, IM) 05/28/2012 ARABELLA DIXON APRN V04.81 FLU DX (3 YRS AND ABOVE, IM) 05/28/2012 ARABELLA DIXON APRN T V04.81 FLU DX (3 YRS AND ABOVE, IM) 05/28/2012 FRANCO DO, SATURNINO K V04.81 FLU DX (3 YRS AND ABOVE, IM) 05/28/2012 FRANCO DO, SATURNINO K V04.81 FLU DX (3 YRS AND ABOVE, IM) 10/23/2012 461.9 SINUSITIS ACUTE 10/23/2012 461.9 SINUSITIS ACUTE 10/23/2012 461.9 SINUSITIS ACUTE 10/23/2012 461.9 SINUSITIS ACUTE 10/23/2012 PAULETTE PERES, NANDA Rooney 461.9 SINUSITIS ACUTE 10/23/2012 ARABELLA DIXON APRN T 461.9 SINUSITIS ACUTE 10/23/2012 ARABELLA DIXON APRN T 461.9 SINUSITIS ACUTE 10/23/2012 ARABELLA DIXON APRN T 461.9 SINUSITIS ACUTE 10/23/2012 ARABELLA DIXON APRN T 461.9 SINUSITIS ACUTE 10/23/2012 BILL JOYCE APRN A 461.9 SINUSITIS ACUTE 10/23/2012 ARABELLA DIXON APRN T 461.9 SINUSITIS ACUTE 10/23/2012 FRANCO , SATURNINO K 461.9 SINUSITIS ACUTE 10/23/2012 ARABELLA DIXON APRN T 461.9 SINUSITIS ACUTE 10/23/2012 FRANCO DO SATURNINO K 461.9 SINUSITIS ACUTE 10/23/2012 FRANCO DO, SATURNINO K 461.9 SINUSITIS ACUTE 10/23/2012 ARABELLA DIXON APRN T 461.9 SINUSITIS ACUTE 10/23/2012 ARABELLA DIXON APRN T 461.9 SINUSITIS ACUTE 10/23/2012 ARABELLA DIXON APRN T 461.9 SINUSITIS ACUTE 10/23/2012 FRANCO DO, SATURNINO K 461.9 SINUSITIS ACUTE 10/23/2012 FRANCO DO, SATURNINO K 461.9 SINUSITIS ACUTE 01/12/2013 382.9 OTITIS MEDIA 01/12/2013 PAULETTE PERES, NANDA Rooney 382.9 OTITIS MEDIA 01/12/2013 ZACK [employer] MECHANICAL ENGINEER, ARABELLA T 382.9 OTITIS MEDIA 01/12/2013 ZACK HY[employer]OE[employer] MECHANICAL ENGINEER, ARABELLA T 382.9 OTITIS MEDIA 01/12/2013 ZACK HY[employer]OELECT[employer] MECHANICAL ENGINEER, ARABELLA T 382.9 OTITIS MEDIA 01/12/2013 ZACK HY[employer]OELECT[employer]IC [employer] MECHANICAL ENGINEER, ARABELLA T 382.9 OTITIS MEDIA 01/12/2013 MARIA DEL CARMEN HYDROELECTRIC PLANT MECHANICAL ENGINEER, BILL A 382.9 OTITIS MEDIA 01/12/2013 ZACK HY[employer]OELECT[employer]IC [employer] MECHANICAL ENGINEER, ARABELLA T 382.9 OTITIS MEDIA 01/12/2013 FRANCO DO, SATURNINO K 382.9 OTITIS MEDIA 01/12/2013 ZACK HY[employer]OELECT[employer] MECHANICAL ENGINEER, ARABELLA T 382.9 OTITIS MEDIA 01/12/2013 FRANCO DO, SATURNINO K 382.9 OTITIS MEDIA 01/12/2013 FRANCO DO, SATURNINO K 382.9 OTITIS MEDIA 01/12/2013 ZACK HY[employer]OE[employer] MECHANICAL ENGINEER, ARABELLA T 382.9 OTITIS MEDIA 01/12/2013 ZACK HY[employer]OELECT[employer] MECHANICAL ENGINEER, ARABELLA T 382.9 OTITIS MEDIA 01/12/2013 ZACK HY[employer]OELECT[employer] MECHANICAL ENGINEER, ARABELLA T 382.9 OTITIS MEDIA 01/12/2013 FRANCO DO, SATURNINO K 382.9 OTITIS MEDIA 01/12/2013 FRANCO DO, SATURNINO K 382.9 OTITIS MEDIA 04/07/2013 PAULETTE PERES, NANDA Rooney 112.1 CANDIDIASIS VAGINAL 04/07/2013 ARABELLA DIXON APRN T 112.1 CANDIDIASIS VAGINAL 04/07/2013 ARABELLA DIXON APRN T 112.1 CANDIDIASIS VAGINAL 04/07/2013 ARABELLA DIXON APRN T 112.1 CANDIDIASIS VAGINAL 04/07/2013 ARABELLA DIXON APRN T 112.1 CANDIDIASIS VAGINAL 04/07/2013 MARIA DEL CARMEN HYDROELECT[employer]IC PLANT MECHANICAL ENGINEER, BILL A 112.1 CANDIDIASIS VAGINAL 04/07/2013 ARABELLA DIXON APRN T 112.1 CANDIDIASIS VAGINAL 04/07/2013 FRANCO DO, SATURNINO K 112.1 CANDIDIASIS VAGINAL 04/07/2013 ARABELLA DIXON APRN T 112.1 CANDIDIASIS VAGINAL 04/07/2013 FRANCO DO, SATURNINO K 112.1 CANDIDIASIS VAGINAL 04/07/2013 FRANCO DO, SATURNINO K 112.1 CANDIDIASIS VAGINAL 04/07/2013 ARABELLA DIXON APRN T 112.1 CANDIDIASIS VAGINAL 04/07/2013 ZACK CRUZ ARABELLA T 112.1 CANDIDIASIS VAGINAL 04/07/2013 ZACK CRUZ, ARABELLA T 112.1 CANDIDIASIS VAGINAL 04/07/2013 FRANCO DO, SATURNINO K 112.1 CANDIDIASIS VAGINAL 04/07/2013 FRANCO DO, SATURNINO K 112.1 CANDIDIASIS VAGINAL 05/12/2013 ZACK CRUZ, ARABELLA T 250.00 DIABETES MELLITUS TYPE 2 05/12/2013 ZACK CRUZ, ARABELLA T 250.00 DIABETES MELLITUS TYPE 2 05/12/2013 ZACK CRUZ, ARABELLA T 250.00 DIABETES MELLITUS TYPE 2 05/12/2013 MARIA DEL CARMEN CRUZ, BILL A 250.00 DIABETES MELLITUS TYPE 2 05/12/2013 ZACK CRUZ, ARABELLA T 250.00 DIABETES MELLITUS TYPE 2 05/12/2013 FRANCO DO, SATURNINO K 250.00 DIABETES MELLITUS TYPE 2 05/12/2013 ZACK CRUZ, ARABELLA T 250.00 DIABETES MELLITUS TYPE 2 05/12/2013 FRANCO DO, SATURNION K 250.00 DIABETES MELLITUS TYPE 2 05/12/2013 FRANCO DO, SATURNINO K 250.00 DIABETES MELLITUS TYPE 2 05/12/2013 ZACK CRUZ, ARABELLA T 250.00 DIABETES MELLITUS TYPE 2 05/12/2013 ZACK CRUZ, ARABELLA T 250.00 DIABETES MELLITUS TYPE 2 05/12/2013 ZACK CRUZ, ARABELLA T 250.00 DIABETES MELLITUS TYPE 2 05/12/2013 FRANCO DO, SATURNINO K 250.00 DIABETES MELLITUS TYPE 2 05/12/2013 FRANCO DO, SATURNINO K 250.00 DIABETES MELLITUS TYPE 2 07/24/2013 ADOLFO DAVID L Ot 787.01 NAUSEA WITH VOMITING 07/24/2013 ADOLFO DAVID L Ot 787.91 DIARRHEA 07/24/2013 ADOLFO DAVID L Ot 789.00 ABDOMINAL PAIN, UNSPECIFIED SITE 09/21/2013 BILL JOYCE APRN A 780.79 OTHER MALAISE AND FATIGUE 09/21/2013 ARABELLA DIXON APRN 780.79 OTHER MALAISE AND FATIGUE 09/21/2013 FRANCO DO SATURNINO K 780.79 OTHER MALAISE AND FATIGUE 09/21/2013 ARABELLA DIXON APRN 780.79 OTHER MALAISE AND FATIGUE 09/21/2013 FRANCO DO SATURNINO K 780.79 OTHER MALAISE AND FATIGUE 09/21/2013 FRANCO DO SATURNINO K 780.79 OTHER MALAISE AND FATIGUE 09/21/2013 ARABELLA DIXON APRN 780.79 OTHER MALAISE AND FATIGUE 09/21/2013 ARABELLA DIXON APRN 780.79 OTHER MALAISE AND FATIGUE 09/21/2013 ARABELLA DIXON APRN 780.79 OTHER MALAISE AND FATIGUE 09/21/2013 FRANCO DO SATURNINO K 780.79 OTHER MALAISE AND FATIGUE 09/21/2013 FRANCO DO, SATURNINO K 780.79 OTHER MALAISE AND FATIGUE 10/24/2013 ARABELLA DIXON APRN 719.46 PAIN- KNEE 10/24/2013 FRANCO DO, SATURNINO K 719.46 PAIN- KNEE 10/24/2013 ARABELLA DIXON APRN T 719.46 PAIN- KNEE 10/24/2013 FRANCO DO, SATURNINO K 719.46 PAIN- KNEE 10/24/2013 FRANCO DO, SATURNINO K 719.46 PAIN- KNEE 10/24/2013 ARABELLA DIXON APRN 719.46 PAIN- KNEE 10/24/2013 ARABELLA DIXON APRN 719.46 PAIN- KNEE 10/24/2013 ARABELLA DIXON APRN T 719.46 PAIN- KNEE 10/24/2013 FRANCO DO, SATURNINO K 719.46 PAIN- KNEE 10/24/2013 FRANCO DO, SATURNINO K 719.46 PAIN- KNEE 03/03/2014 FRANCO DO, SATURNINO K 844.9 SPRAIN/STRAIN KNEE/LEG 03/03/2014 ARABELLA DIXON APRN T 844.9 SPRAIN/STRAIN KNEE/LEG 03/03/2014 ARABELLA DIXON APRN 844.9 SPRAIN/STRAIN KNEE/LEG 03/03/2014 ARABELLA DIXON APRN T 844.9 SPRAIN/STRAIN KNEE/LEG 03/03/2014 FRANCO DOOSCARA K 844.9 SPRAIN/STRAIN KNEE/LEG 03/03/2014 FRANCO DO, SATURNINO K 844.9 SPRAIN/STRAIN KNEE/LEG 04/09/2014 SUNITHA PERES, KALANI Paiz Ot 682.6 CELLULITIS OF LEG 05/23/2014 SUNITHA PERES, KALANI Paiz Ot 729.5 PAIN IN LIMB 05/23/2014 KALANI HELTON MD Ot 840.8 SPRAIN SHOULDER/ARM NEC 05/23/2014 KALANI HELTON MD Ot E000.8 OTHER EXTERNAL CAUSE STATUS 05/23/2014 AKLANI HELTON MD Ot E927.0 OVEREXERTION FROM SUDDEN STRENUOUS MOVEM 07/24/2014 SATURNINO FRANCO DO 465.9 UPPER RESPIRATORY INFECTION 07/24/2014 SATURNINO FRANCO DO 465.9 UPPER RESPIRATORY INFECTION 02/01/2015 Ot 717.3 02/01/2015 Ot 626.2 02/01/2015 Ot 722.52 02/01/2015 Ot 278.00 02/01/2015 Ot 401.9 02/01/2015 Ot V70.0 02/01/2015 Ot 288.60 02/01/2015 Ot V58.61 02/01/2015 Ot 719.06 02/01/2015 Ot 844.2 02/01/2015 Ot E000.8 02/01/2015 Ot E849.6 02/01/2015 Ot E928.9 02/01/2015 ARABELLA DIXON Ot 836.0 02/01/2015 ARABELLA DIXON Ot E000.8 02/01/2015 ARABELLA DIXON Ot E928.9 02/01/2015 Ot 717.3 02/01/2015 Ot 626.2 02/01/2015 Ot 722.52 02/01/2015 Ot 278.00 02/01/2015 Ot 401.9 02/01/2015 Ot V70.0 02/01/2015 Ot 288.60 02/01/2015 Ot V58.61 02/01/2015 Ot 719.06 02/01/2015 Ot 844.2 02/01/2015 Ot E000.8 02/01/2015 Ot E849.6 02/01/2015 Ot E928.9 02/01/2015 ARABELLA DIXON Ot 836.0 02/01/2015 ARABELLA DIXON Ot E000.8 02/01/2015 ARABELLA DIXON Ot E928.9 02/02/2015 SATURNINO FRANCO DO Ot 038.9 SEPTICEMIA NOS 02/02/2015 SATURNINO FRANCO DO Ot 041.12 METHICILLIN RESISTANT STAPHYLOCOCCUS AUR 02/02/2015 SATURNINO FRANCO DO Ot 250.02 DIAB YANA WO COMPL, TYPE II OR UNSPEC TY 02/02/2015 SATURNNIO FRANCO DO Ot 272.0 PURE HYPERCHOLESTEROLEM 02/02/2015 SATURNINO FRANCO DO Ot 305.1 TOBACCO USE DISORDER 02/02/2015 SATURNINO FRANCO DO Ot 401.9 HYPERTENSION NOS 02/02/2015 SATURNINO FRANCO DO Ot 682.2 CELLULITIS OF TRUNK 02/02/2015 SATURNINO FRANCO DO Ot 780.57 UNSPECIFIED SLEEP APNEA 02/02/2015 SATURNINO FRANCO DO Ot 995.91 SEPSIS 02/02/2015 SATURNINO FRANCO DO Ot V06.1 KYRDECUWSK-QWDEFGT-KLUBMPQPT, COMBINED [ 07/10/2015 Ot 717.3 07/10/2015 Ot 626.2 07/10/2015 Ot 722.52 07/10/2015 Ot 278.00 07/10/2015 Ot 401.9 07/10/2015 Ot V70.0 07/10/2015 Ot 288.60 07/10/2015 Ot V58.61 07/10/2015 Ot 719.06 07/10/2015 Ot 844.2 07/10/2015 Ot E000.8 07/10/2015 Ot E849.6 07/10/2015 Ot E928.9 07/10/2015 ARABELLA DIXON Ot 836.0 07/10/2015 ARABELLA DIXON Ot E000.8 07/10/2015 ARABELLA DIXON Ot E928.9 10/26/2015 Ot 626.2 EXCESSIVE MENSTRUATION 10/26/2015 Ot 722.52 LUMB/ LUMBOSAC DISC DEGEN 10/26/2015 Ot 278.00 OBESITY, NOS 10/26/2015 Ot 401.9 HYPERTENSION NOS 10/26/2015 Ot V70.0 ROUTINE MEDICAL EXAM 10/26/2015 Ot 288.60 LEUKOCYTOSIS , UNSPECIFIED 10/26/2015 Ot V58.61 ANTICOAGULANTS,LT,CURRENT USE 10/26/2015 Ot 719.06 JOINT EFFUSION-L/LEG 10/26/2015 Ot 844.2 SPRAIN CRUCIATE LIG KNEE 10/26/2015 Ot E000.8 OTHER EXTERNAL CAUSE STATUS 10/26/2015 Ot E849.6 ACCIDENT IN PUBLIC BLDG 10/26/2015 Ot E928.9 ACCIDENT NOS 10/26/2015 ARABELLA DIXON Ot 836.0 TEAR MED MENISC KNEE-CUR 10/26/2015 ARABELLA DIXON Ot E000.8 OTHER EXTERNAL CAUSE STATUS 10/26/2015 ARABELLA DIXON Ot E928.9 ACCIDENT NOS 10/27/2015 DEVI PERES, DORINA Taylor Ot F17.210 NICOTINE DEPENDENCE, CIGARETTES, UNCOMPL 10/27/2015 DEVI PERES, DORINA Taylor Ot G89.29 OTHER CHRONIC PAIN 10/27/2015 DEVI PERES, DORINA Taylor Ot M54.5 LOW BACK PAIN 10/27/2015 Ot 626.2 EXCESSIVE MENSTRUATION 10/27/2015 Ot 722.52 LUMB/ LUMBOSAC DISC DEGEN 10/27/2015 Ot 278.00 OBESITY, NOS 10/27/2015 Ot 401.9 HYPERTENSION NOS 10/27/2015 Ot V70.0 ROUTINE MEDICAL EXAM 10/27/2015 Ot 288.60 LEUKOCYTOSIS , UNSPECIFIED 10/27/2015 Ot V58.61 ANTICOAGULANTS,LT,CURRENT USE 10/27/2015 Ot 719.06 JOINT EFFUSION-L/LEG 10/27/2015 Ot 844.2 SPRAIN CRUCIATE LIG KNEE 10/27/2015 Ot E000.8 OTHER EXTERNAL CAUSE STATUS 10/27/2015 Ot E849.6 ACCIDENT IN PUBLIC BLDG 10/27/2015 Ot E928.9 ACCIDENT NOS 10/27/2015 ARABELLA DIXON [facility] Ot 836.0 TEAR MED MENISC KNEE-CUR 10/27/2015 ARABELLA DIXON [facility] Ot E000.8 OTHER EXTERNAL CAUSE STATUS 10/27/2015 ARABELLA DIXON Ot E928.9 ACCIDENT NOS 10/29/2015 DEVI PERES, DORINA Taylor Ot F17.210 NICOTINE DEPENDENCE, CIGARETTES, UNCOMPL 10/29/2015 DEVI PERES, DORINA Taylor Ot G89.29 OTHER CHRONIC PAIN 10/29/2015 DEVI PERES, DORINA Taylor Ot M54.5 LOW BACK PAIN 11/14/2015 DORINA QUINONEZ MD Ot F17.210 NICOTINE DEPENDENCE, CIGARETTES, UNCOMPL 11/14/2015 DORINA QUINONEZ MD Ot G89.29 OTHER CHRONIC PAIN 11/14/2015 DORINA QUINONEZ MD Ot M54.5 LOW BACK PAIN 01/17/2016 Ot 626.2 EXCESSIVE MENSTRUATION 01/17/2016 Ot 722.52 LUMB/ LUMBOSAC DISC DEGEN 01/17/2016 Ot 278.00 OBESITY, NOS 01/17/2016 Ot 401.9 HYPERTENSION NOS 01/17/2016 Ot V70.0 ROUTINE MEDICAL EXAM 01/17/2016 Ot 288.60 LEUKOCYTOSIS , UNSPECIFIED 01/17/2016 Ot V58.61 ANTICOAGULANTS,LT,CURRENT USE 01/17/2016 Ot 719.06 JOINT EFFUSION-L/LEG 01/17/2016 Ot 844.2 SPRAIN CRUCIATE LIG KNEE 01/17/2016 Ot E000.8 OTHER EXTERNAL CAUSE STATUS 01/17/2016 Ot E849.6 ACCIDENT IN PUBLIC BLDG 01/17/2016 Ot E928.9 ACCIDENT NOS 01/17/2016 ZACK ARABELLA Claudia INFANTE Ot 836.0 TEAR MED MENISC KNEE-CUR 01/17/2016 ARABELLA DIXONP Ot E000.8 OTHER EXTERNAL CAUSE STATUS 01/17/2016 ARABELLA DIXON Ot E928.9 ACCIDENT NOS 10/20/2016 Ot 719.06 JOINT EFFUSION-L/LEG 10/20/2016 Ot 844.2 SPRAIN CRUCIATE LIG KNEE 10/20/2016 Ot E000.8 OTHER EXTERNAL CAUSE STATUS 10/20/2016 Ot E849.6 ACCIDENT IN PUBLIC BLDG 10/20/2016 Ot E928.9 ACCIDENT NOS 10/20/2016 ZACK ARABELLA Taylor ARELIS Ot 836.0 TEAR MED MENISC KNEE-CUR 10/20/2016 ARABELLA DIXONP Ot E000.8 OTHER EXTERNAL CAUSE STATUS 10/20/2016 ZACK ARABELLA Claudia INFANTE Ot E928.9 ACCIDENT NOS 11/05/2016 ZACK ARABELLA Claudia RAHMANP Ot 836.0 TEAR MED MENISC KNEE-CUR 11/05/2016 ARABELLA DIXON Ot E000.8 OTHER EXTERNAL CAUSE STATUS 11/05/2016 ARABELLA DIXONP Ot E928.9 ACCIDENT NOS 11/06/2016 ARABELLA DIXON Ot G43.009 MIGRAINE W/O AURA, NOT INTRACTABLE, W/O 11/06/2016 ARABELLA DIXON Ot Z82.49 FAMILY HX OF ISCHEM HEART DIS AND OTH DI 11/19/2016 ARABELLA DIXON Ot G43.009 MIGRAINE W/O AURA, NOT INTRACTABLE, W/O 11/19/2016 ARABELLA DIXON Ot Z82.49 FAMILY HX OF ISCHEM HEART DIS AND OTH DI 10/29/2017 NGA CARDOSO DO Ot E28.2 POLYCYSTIC OVARIAN SYNDROME Procedures Code [place] [address] PSYCH IND W/MED CK 20 10/26/2012 68058 THERAPUTIC INJ SQ/IM 04/07/2013 J1885 TORADOL INJ 04/07/2013 60039 UA W/ CULTURE IF INDICATED 04/07/2013 94239 MICRO ALBUMIN-IN HOUSE 04/07/2013 46186 A1C (IN-HOUSE) 04/07/2013 ENDOCRINO ELIAS NARAYANAN 04/29/2013 29956 ROUTINE VENIPUNCTURE 05/03/2013 67397 CBC 05/03/2013 3117190 GFR CALC (RESULT ONLY) 05/03/2013 10885 CMP 05/03/2013 68035 LIPID PANEL 05/03/2013 07627 TSH 05/03/2013 24804 A1C (IN-HOUSE) 08/08/2013 ORTHOPMANUEL VO 10/24/2013 78996 JOINT INJECTION- LARGE JOINT (SPECIFY MEDCIN DESCRIPTION) 12/08/2013 70865 A1C (IN-HOUSE) 01/11/2014 79165 MRI EXTREMITY, LOWER LEFT, W /O CONTRAST 01/30/2014 96229 XRAY KNEE LEFT, 1 OR 2 VIEWS 03/09/2014 96647 A1C (IN-HOUSE) 04/24/2014 95685 AMERITOX 10/04/2014 Results Test Result Range CBC - 07/30/17 16:23 WHITE BLOOD CELL COUNT 16.3 Thousand/uL 3.8-10.8 RED BLOOD CELL COUNT 4.94 Million/uL 3.80-5.10 HEMOGLOBIN 15.0 g/dL 11.7-15.5 HEMATOCRIT 45.4 % 35.0-45.0 MCV 91.9 fL 80.0-100.0 MCH 30.4 pg 27.0-33.0 MCHC 33.0 g/dL 32.0-36.0 RDW 13.6 % 11.0-15.0 PLATELET COUNT 411 Thousand/uL 140-400 MPV 10.4 fL 7.5-12.5 ABSOLUTE NEUTROPHILS 51381 cells/uL 3602-8780 ABSOLUTE LYMPHOCYTES 4923 cells/uL 850-3900 ABSOLUTE MONOCYTES 685 cells/uL 200-950 ABSOLUTE EOSINOPHILS 163 cells/uL 15-500 ABSOLUTE BASOPHILS 33 cells/uL 0-200 NEUTROPHILS 64.4 % NRG LYMPHOCYTES 30.2 % NRG MONOCYTES 4.2 % NRG EOSINOPHILS 1.0 % NRG BASOPHILS 0.2 % NRG Serum or plasma estradiol (E2) measurement (mass/volume) - 10/12/17 16:55 Serum or plasma estradiol (E2) measurement (mass/volume) 122 pg/mL NRG PDM - 09 PANEL (PROFILE 1) - 01/18/18 17:42 Prescribed Drug 1 Xanax(TM) NRG Creatinine 73.7 mg/dL > or=20.0 pH 5.01 4.5 - 9.0 Oxidant NEGATIVE mcg/mL <200 Amphetamines POSITIVE ng/mL <500 Benzodiazepines NEGATIVE ng/mL <100 medMATCH Benzodiazepines INCONSISTENT NRG Marijuana Metabolite NEGATIVE ng/mL <20 medMATCH Marijuana Metab CONSISTENT NRG Cocaine Metabolite NEGATIVE ng/mL <150 medMATCH Cocaine Metab CONSISTENT NRG Opiates POSITIVE ng/mL <100 Oxycodone NEGATIVE ng/mL <100 medMATCH Oxycodone CONSISTENT NRG COMMENT NRG Amphetamine 3161 ng/mL <250 medMATCH Amphetamine INCONSISTENT NRG Methamphetamine NEGATIVE ng/mL <250 medMATCH Methamphetamine CONSISTENT NRG Codeine NEGATIVE ng/mL <50 medMATCH Codeine CONSISTENT NRG Hydrocodone 310 ng/mL <50 medMATCH Hydrocodone CONSISTENT NRG Hydromorphone 172 ng/mL <50 medMATCH Hydromorphone CONSISTENT NRG Morphine NEGATIVE ng/mL <50 medMATCH Morphine CONSISTENT NRG Norhydrocodone 218 ng/mL <50 medMATCH Norhydrocodone CONSISTENT NRG Prescribed Drug 2 Hydrocodone NRG Barbiturates NEGATIVE ng/mL <300 medMATCH Barbiturates CONSISTENT NRG Methadone Metabolite NEGATIVE ng/mL <100 medMATCH Methadone Metab CONSISTENT NRG Phencyclidine NEGATIVE ng/mL <25 medMATCH Phencyclidine CONSISTENT NRG Complete blood count (CBC) with automated white blood cell (WBC) differential - 06/27/18 06:35 Blood leukocytes automated count (number/volume) 12.5 10*3/uL 4.3-11.0 Blood erythrocytes automated count (number/volume) 4.55 10*6/uL 4.35-5.85 Venous blood hemoglobin measurement (mass/volume) 14.1 g/dL 11.5-16.0 Blood hematocrit (volume fraction) 42 % 35-52 Automated erythrocyte mean corpuscular volume 92 [foz_us] 80-99 Automated erythrocyte mean corpuscular hemoglobin (mass per erythrocyte) 31 pg 25-34 Automated erythrocyte mean corpuscular hemoglobin concentration measurement ( mass/volume) 34 g/dL 32-36 Automated erythrocyte distribution width ratio 14.2 % 10.0-14.5 Automated blood platelet count (count/volume) 295 10*3/uL 130-400 Automated blood platelet mean volume measurement 9.8 [[facility]] 7.4-10.4 Automated blood neutrophils/100 leukocytes 77 % 42-75 Automated blood lymphocytes/100 leukocytes 15 % 12-44 Blood monocytes/100 leukocytes 7 % 0-12 Automated blood eosinophils/100 leukocytes 1 % 0-10 Automated blood basophils/100 leukocytes 0 % 0-10 Blood neutrophils automated count (number/volume) 9.6 10*3 1.8-7.8 Blood lymphocytes automated count (number/volume) 1.9 10*3 1.0-4.0 Blood monocytes automated count (number/volume) 0.9 10*3 0.0-1.0 Automated eosinophil count 0.1 10*3/uL 0.0-0.3 Automated blood basophil count (count/volume) 0.0 10*3/uL 0.0-0.1 Complete urinalysis with reflex to culture - 06/27/18 06:40 Urine color determination YELLOW NRG Urine clarity determination VERY CLOUDY NRG Urine pH measurement by test strip 5 5-9 Specific gravity of urine by test strip 1.025 1.016- 1.022 Urine protein assay by test strip, semi-quantitative 2+ NEGATIVE Urine glucose detection by automated test strip 3+ NEGATIVE Erythrocytes detection in urine sediment by light microscopy 2+ NEGATIVE Urine ketones detection by automated test strip NEGATIVE NEGATIVE Urine nitrite detection by test strip NEGATIVE NEGATIVE Urine total bilirubin detection by test strip NEGATIVE NEGATIVE Urine urobilinogen measurement by automated test strip (mass/volume) NORMAL NORMAL Urine leukocyte esterase detection by dipstick 3+ NEGATIVE Automated urine sediment erythrocyte count by microscopy (number/high power field) [HPF] NRG Automated urine sediment leukocyte count by microscopy (number/high power field ) [HPF] NRG Bacteria detection in urine sediment by light microscopy TRACE NRG Squamous epithelial cells detection in urine sediment by light microscopy 5-10 NRG Crystals detection in urine sediment by light microscopy NONE NRG Casts detection in urine sediment by light microscopy NONE NRG Mucus detection in urine sediment by light microscopy NEGATIVE NRG Complete urinalysis with reflex to culture YES NRG Encounters ACCT No. Visit Date/Time Discharge Status Pt. Type Provider Facility Loc./Unit Complaint [id number] 10/04/2014 15:45:00 10/04/2014 23:59:59 CLS Outpatient SATURNINO FRANCO DO [id number] 07/24/2014 17:33:00 07/24/2014 23:59:59 CLS Outpatient FRANCO SATURNINO David [id number] 07/05/2014 11:22:00 07/05/2014 23:59:59 CLS Outpatient ARABELLA DIXON APRN [id number] 04/24/2014 14:47:00 04/24/2014 23:59:59 CLS Outpatient ARABELLA DIXON APRN [id number] 04/03/2014 11:16:00 04/03/2014 23:59:59 CLS Outpatient ARABELLA DIXON APRN [id number] 03/09/2014 13:34:00 03/09/2014 23:59:59 CLS Outpatient SALVADOR SATURNINO David [id number] 01/18/2014 09:02:00 01/18/2014 23:59:59 CLS Outpatient SALVADOR SATURNINO David [id number] 01/11/2014 15:28:00 01/11/2014 23:59:59 CLS Outpatient ARABELLA DIXON APRN [id number] 12/08/2013 15:09:00 12/08/2013 23:59:59 CLS Outpatient SALVADOR EATONSATURNINO David [id number] 10/24/2013 10:47:00 10/24/2013 23:59:59 CLS Outpatient ARABELLA DIXON APRN [id number] 09/21/2013 14:54:00 09/21/2013 23:59:59 CLS Outpatient BILL JOYCE APRN [id number] 09/14/2013 12:07:00 09/14/2013 23:59:59 CLS Outpatient ARABELLA DIXON APRN [id number] 08/08/2013 16:09:00 08/08/2013 23:59:59 CLS Outpatient ARABELLA DIXON APRN [id number] 05/03/2013 13:16:00 05/03/2013 23:59:59 CLS Outpatient ARABELLA DIXON APRN [id number] 04/29/2013 15:28:00 04/29/2013 23:59:59 CLS Outpatient ZACK ARABELLA CRUZ [id number] 04/07/2013 13:29:00 04/07/2013 23:59:59 CLS Outpatient PAULETTE PERES, NANDA Rooney [id number] 05/28/2012 11:52:00 05/28/2012 23:59:59 CLS Outpatient [id number] 02/23/2013 12:32:00 Document Registration [id number] 01/12/2013 14:22:00 Document Registration [id number] 12/23/2012 13:45:00 Document Registration [id number] 10/23/2012 09:43:00 Document Registration [id number] 06/25/2018 14:40:00 ACT Outpatient ARABELLA DIXON APRN [facility] [id number] 01/18/2018 17:20:00 Document Registration [id number] 07/30/2017 15:40:00 Document Registration [id number] 10/12/2017 16:45:00 10/12/2017 23:59:59 CLS Outpatient CARDOSO NGA EATON [facility] E28.2 [id number] 11/05/2016 10:20:00 11/05/2016 23:59:59 CLS Outpatient ARABELLA DIXON [facility] Z82.49 G43.009 [id number] 10/26/2015 21:27:00 10/27/2015 01:18:00 DIS Emergency DORINA QUINONEZ MD [facility] ER BACK PAIN [id number] 02/01/2015 22:04:00 02/02/2015 13:00:00 DIS Inpatient SATURNINO FRANCO DO [facility] 4TH ABD WALL CELLULITIS, DIABETES MELLITUS, [id number] 05/23/2014 22:34:00 05/23/2014 23:12:00 DIS Emergency KALANI HELTON MD [facility] R ARM PAIN [id number] 04/09/2014 01:51:00 04/09/2014 02:08:00 DIS Emergency KALANI HELTON MD [facility] R LEG ABSCESS [id number] 03/03/2014 09:03:00 03/03/2014 23:59:59 CLS Outpatient ARABELLA DIXON [facility] LEFT KNEE PAIN [id number] 07/24/2013 11:02:00 07/24/2013 15:49:00 DIS Emergency ADOLFO DAVID [facility] ABDOMINAL PAIN [id number] 06/27/2018 05:55:00 ACT Emergency WICHO PERES, EDNA Hernandze [facility] BLADDER PAIN;MIGRAINE [id number] 05/02/2011 13:39:00 Document Registration [id number] 04/29/2011 18:04:00 Document Registration [id number] 04/01/2011 12:48:00 Document Registration [id number] 03/19/2011 08:18:00 Document Registration [id number] 02/12/2011 12:53:00 Document Registration [id number] 02/05/2011 14:15:00 Document Registration [id number] 12/05/2010 13:00:00 Document Registration [id number] 10/09/2010 15:03:00 Document Registration [id number] 10/03/2010 19:15:00 Document Registration [id number] 07/24/2010 14:30:00 Document Registration [id number] 05/23/2010 10:21:00 Document Registration [id number] 03/04/2010 08:37:00 Document Registration [id number] 02/17/2010 18:49:00 Document Registration [id number] 11/05/2009 19:55:00 Document Registration [id number] 09/19/2009 00:19:00 Document Registration [id number] 10/29/2017 00:11:50 Document Registration [id number] 10/28/2017 22:30:32 Document Registration
[2018-06-27] MEDS ORDERED: cefTRIAXone 1,000 MG/2.86 ml vial (IM ONLY) IM SCH (07:45)
[2018-06-27] MEDS ORDERED: IBUPROFEN 800 MG (MOTRIN) TAB PO ONE (08:00)
[2018-06-27] MEDS ORDERED: CEFD300C3 PO (08:10)
[2018-06-27 08:30] VITALS: BP 147/86
== END 2018-06-27 08:30 | disposition home or self-care (01) ==
LOC: EDUNIT# 05:53 → ER 05:55
DX: N39.0 Urinary tract infection, site not specified (principal); G47.30 Sleep apnea, unspecified; E78.00 Pure hypercholesterolemia, unspecified; I10 Essential (primary) hypertension; E11.9 Type 2 diabetes mellitus without complications; F41.9 Anxiety disorder, unspecified; F32.9 Major depressive disorder, single episode, unspecified; G43.909 Migraine, unspecified, not intractable, without status migrainosus; F17.210 Nicotine dependence, cigarettes, uncomplicated; Z87.448 Personal history of other diseases of urinary system; Z87.440 Personal history of urinary (tract) infections; Z98.890 Other specified postprocedural states; Z82.49 Family history of ischemic heart disease and other diseases of the circulatory system; Z91.040 Latex allergy status; Z88.8 Allergy status to other drugs, medicaments and biological substances
CPT/HCPCS: 36415; 81000; 85025; 87088

== ENCOUNTER → 2018-12-22 | Outpatient (CLI) | payer BC ==
[~2018-12-22] MED LIST changes: +AMLO2.5T2 PO; +CEFD300C3 PO; +DEXT5TAB19 PO; +GLIP5TAB13 PO; +HOLD METFORMIN - RECEIVED CONTRAST 20 ML VIAL IV SCH; +IOHEXOL 350 MG/ML 100 ML (OMNIPAQUE 350) VIAL IV ONE; +LORA-404 PO; +NS 100 ML (IVPB) BAG IV ONE
--- NOTE | 2018-12-22 18:33 | Diagnostic Imaging Report ---
PROCEDURE: CT abdomen and pelvis with contrast. TECHNIQUE: Multiple contiguous axial images were obtained through the abdomen and pelvis after administration of intravenous contrast. Auto Exposure Controls were utilized during the CT exam to meet ALARA standards for radiation dose reduction. INDICATION: Left lower quadrant pain, bloating, nausea and vomiting. CORRELATION STUDY: 07/24/2013. FINDINGS: Lung bases are clear. Heart size is normal. Esophageal junction is unremarkable. Mild low-attenuation of the parenchyma suggestive of hepatic steatosis. Liver is borderline enlarged. Spleen, pancreas and adrenal glands are unremarkable. Gallbladder is present. There is suggestion some gallbladder wall thickening. No definitive gallstones. No significant bile ductal dilatation. Kidneys and collecting systems are unremarkable. Abdominal aorta is nonaneurysmal. Gastrointestinal tract demonstrates stomach to be relatively collapsed. Small bowel without obstruction. There are a few asymmetrically thickened loops of small bowel in the left lower quadrant which could be reflective of nonspecific enteritis. The colon does demonstrate mild severity fecal retention and a few scattered diverticula to be present. No definitive inflamed diverticulum. Urinary bladder is decompressed. Uterus is unremarkable. Small right ovarian cyst. IMPRESSION: 1. Gallbladder wall thickening suggested without definitive gallstone or bile ductal dilatation. If further assessment is desired, gallbladder ultrasound imaging recommended. 2. A few thickened loops of small bowel in the left lower quadrant could reflect nonspecific enteritis. No evidence for obstruction. 3. A few scattered colonic diverticuli are present without definitive evidence for acute diverticulitis. 4. Borderline hepatomegaly with mild severity hepatic steatosis. Dictated by: Dictated on workstation # [id number]
== END ==
LOC: RAD 17:13
PROVIDERS: ATTEND Nurse Practitioner Community Health
DX: K57.30 Diverticulosis of large intestine without perforation or abscess without bleeding (principal); K76.0 Fatty (change of) liver, not elsewhere classified; K63.89 Other specified diseases of intestine
CPT/HCPCS: 74177

== ENCOUNTER 2019-08-20 22:10 | Emergency (ER) | payer BC ==
[~2019-08-20] VITALS: Ht 175.2 cm; Wt 133.6 kg
[~2019-08-20 22:10] MED LIST changes: -HOLD METFORMIN - RECEIVED CONTRAST 20 ML VIAL IV SCH; -IOHEXOL 350 MG/ML 100 ML (OMNIPAQUE 350) VIAL IV ONE; -NS 100 ML (IVPB) BAG IV ONE
[2019-08-20] MEDS ORDERED: IBUPROFEN 800 MG (MOTRIN) TAB PO STA (22:46)
--- NOTE | 2019-08-20 22:53 | ED Cough/URI ---
General Chief Complaint: Cough/Cold/Flu Symptoms Stated Complaint: CONGESTION, COUGH, HEADACHE Nursing Triage Note: PATIENT REPORTS HAS BEEN SICK WITH COLD/FLU SYMPTOMS FOR 3 WEEKS NOW MOST RECENTLY BEGAN HAVING RIGHT EAR PAIN AND C/O SORE THROAT WITH COUGHING. STATS SPUTUM IS CLEAR AND THIN AND NOT CONSTANT. Sepsis Screen: No Definite Risk Source: patient Exam Limitations: no limitations History of Present Illness Date Seen by Provider: Aug 20, 2019 Time Seen by Provider: 22:40 Initial Comments Here with report of feeling sick for the most part of the last 3 weeks. Complains of right ear pain, sore throat and coughing. Denies nausea or vomiting. She has been taking NyQuil. She has used albuterol treatments and did an MDI and treatment tonight prior to arrival. Timing/Duration: getting worse, other (3 weeks) Severity/Quality: moderate, dry cough Prior Episodes/Possible Cause: occasional episodes Modifying Factors: Worse With Activity, Worse With Coughing; Improves With Rest Associated Symptoms: cough, earache, nasal congestion, shortness of breath, sore throat Allergies and Home Medications Allergies Coded Allergies: latex (Unverified Allergy, Severe, HIVES, 08/20/19) bupropion (Unverified Allergy, Unknown, 08/20/19) venlafaxine (Unverified Allergy, Unknown, 08/20/19) vilazodone (Verified Adverse Reaction, Intermediate, 08/20/19) Home Medications Amlodipine Besylate 2.5 Mg Tablet, Unknown Dose PO DAILY, (Reported) Cefdinir 300 Mg Capsule, 300 MG PO twice a day Prescribed by: EDNA SANDS on 06/27/18 0810 Hydrocodone Bit/Acetaminophen 1 Tab Tablet, 1 TAB PO Q6H PRN for PAIN, (Reported) Lorazepam 0.5 Mg Tablet, Unknown Dose PO TID PRN for ANXIETY, (Reported) Patient Home Medication List Home Medication List Reviewed: Yes Review of Systems Review of Systems Constitutional: see HPI EENTM: see HPI Respiratory: see HPI Cardiovascular: no symptoms reported Gastrointestinal: no symptoms reported Musculoskeletal: no symptoms reported Past Gsvzbkn-Oxnwuo-Kgkfax Hx Past Med/Social Hx: Reviewed Nursing Past Med/Soc Hx Patient Social History Alcohol Use: Rarely Uses Recreational Drug Use: No Type Used: Cigarettes 2nd Hand Smoke Exposure: Yes Recent Foreign Travel: No Contact w/Someone Who Travel: No Recent Infectious Disease Expo: No Recent Hopitalizations: No Physical Abuse: No Sexual Abuse: No Mistreated: No Fear: No Immunizations Up To Date Tetanus Booster (TDap): Unknown PED Vaccines UTD: Yes Date of Influenza Vaccine: May 11, 2019 Seasonal Allergies Seasonal Allergies: No Past Medical History Surgeries: Yes (L KNEE MENISCUS REPAIR X2) Orthopedic Respiratory: Yes Sleep Apnea Cardiac: Yes High Cholesterol, Hypertension Neurological: Yes Headaches /Migraines : No Last Menstrual Period: Aug 14, 2019 Reproductive Disorders: Yes (PCOS, INFERTILITY) Female Reproductive Disorders: Menstrual Problems, Ovarian Cyst, Polycystic Ovarian Dis Sexually Transmitted Disease: No HIV/AIDS: No Genitourinary: Yes UTI-Chronic Gastrointestinal: No Musculoskeletal: Yes Scoliosis, Chronic Back Pain, Spasms Endocrine: Yes Diabetes, Non-Insulin dep HEENT: No Loss of Vision: Bilateral Hearing Impairment: Denies Cancer: No Psychosocial: Yes Anxiety, Depression Integumentary: Yes (CELLULITIS, ABSCESSES) Blood Disorders: No Adverse Reaction/Blood Tranf: No Family Medical History Reviewed Nursing Family Hx Deep venous thrombosis Diabetes mellitus 19 MOTHER FH: brain aneurysm FH: depression 19 MOTHER FH: headache FH: sleep apnea Hypertension 19 FATHER Physical Exam Vital Signs - First Documented 08/20/19 22:20 Temp 37.0 Pulse 102 Resp 20 B/P (MAP) 178/109 (132) Pulse Ox 97 O2 Delivery Room Air Capillary Refill : Less Than 3 Seconds Height: 5'9" Weight: 270lbs. 0.0oz. 122.431451pp; 43.00 BMI Method:Stated General Appearance: WD/WN, no apparent distress HEENT: PERRL/EOMI, pharyngeal erythema; No tonsillar exudate; other (erythema to the right TM with clear fluids. Left TM normal) Neck: full range of motion, supple Respiratory: lungs clear, normal breath sounds Cardiovascular: no murmur, tachycardia Gastrointestinal: non tender, soft Extremities: non-tender, normal inspection Neurologic/Psychiatric: alert, oriented x 3 Skin: normal color, warm/dry Progress/Results/Core Measures Suspected Sepsis Recent Fever Within 48 Hours: No Infection Criteria Present: None New/Unexplained Altered Menta: No Sepsis Screen: No Definite Risk SIRS Temperature: Pulse: 102 Respiratory Rate: 20 Blood Pressure 178 /109 Mean: 132 Results/Orders Micro Results Microbiology 08/20/19 Influenza Types A,B Antigen (EHSAN) - Final, Complete My Orders Orders - AL KILGORE MD Influenza A And B Antigens (08/20/19 22:19) Chest Pa/Lat (2 View) (08/20/19 22:38) Ibuprofen Tablet (Motrin Tablet) (08/20/19 22:46) Vital Signs/I&O 08/20/19 08/20/19 22:20 22:20 Temp 37.0 Pulse 102 Resp 20 B/P (MAP) 178/109 (132) Pulse Ox 97 O2 Delivery Room Air Capillary Refill : Less Than 3 Seconds Blood Pressure Mean: 132 Progress Note : Progress Note Seen and evaluated. Two-view chest x-ray ordered. Ibuprofen 800 mg by mouth. Fluids and screen ordered. Monitor patient. 2346: No acute findings. We will go ahead and treat for possible ear/upper respiratory infection. Azithromycin 500 mg by mouth now. Discharged home with return precautions. Patient verbalize understanding instructions and agreement with plan. Diagnostic Imaging Diagonstic Imaging: Xray Plain Films/CT/US/NM/MRI: chest Comments No acute findings Reviewed: Reviewed by Me Departure Impression Primary Impression: Upper respiratory infection Qualified Codes: J06.9 - Acute upper respiratory infection, unspecified Additional Impression: Right ear pain Disposition: HOME, SELF-CARE Condition: Stable Departure-Patient Inst. Decision time for Depature: 23:47 Referrals: SATURNINO FRANCO DO (PCP) Primary Care Physician ARABELLA DIXON (Family) Primary Care Physician Patient Instructions: Viral Upper Respiratory Infection, Adult (DC) Add. Discharge Instructions: All discharge instructions reviewed with patient and/or family. Voiced understanding. Take medications as directed. You may take ibuprofen 800 mg every 8 hours as needed for fever or pain. You may use Afrin nasal spray or the generic, 12 hour relief, 2 sprays to each nostril twice daily for 3 days only and then stop. Do not use more than 3 days. Follow-up with your DrReynaldo in a few days for recheck. Drink plenty of fluids. Return for worse pain, fever, vomiting, weakness, breathing problems or other concerns as needed. Scripts Azithromycin (Azithromycin) 250 Mg Tablet 250 MG PO DAILY, #4 TAB 0 Refills Prov: AL KILGORE MD 08/20/19 AL KILGORE MD Aug 20, 2019 22:52
[2019-08-20] MEDS ORDERED: AZITHROMYCIN 250 MG TAB (ZITHROMAX) PO STA (23:45)
[2019-08-20] MEDS ORDERED: AZIT250T12 PO (23:49)
[2019-08-20 23:52] VITALS: BP 131/74
--- NOTE | 2019-08-21 07:24 | Diagnostic Imaging Report ---
INDICATION: Cold and flu symptoms. Comparison is made with prior examination of 05/23/2010. FINDINGS: The heart size, mediastinal configuration, and pulmonary vascularity are within normal limits. There is no pleural effusion, pneumothorax, or pneumonia. The osseous structures are unremarkable. IMPRESSION: No acute cardiopulmonary abnormality. Dictated by: Dictated on workstation # [id number]
== END 2019-08-20 23:57 | disposition home or self-care (01) ==
LOC: EDUNIT# 22:10 → ER 22:11
DX: J06.9 Acute upper respiratory infection, unspecified (principal); H92.01 Otalgia, right ear; I10 Essential (primary) hypertension; F41.9 Anxiety disorder, unspecified; F32.9 Major depressive disorder, single episode, unspecified; Z91.040 Latex allergy status; Z88.8 Allergy status to other drugs, medicaments and biological substances; Z77.22 Contact with and (suspected) exposure to environmental tobacco smoke (acute) (chronic)
CPT/HCPCS: 71046; 87804

== ENCOUNTER 2020-02-17 05:32 | Outpatient (RCR) | payer BC ==
[~2020-02-17] VITALS: Ht 175 cm; Wt 133.0 kg
[~2020-02-17 05:32] MED LIST changes: +AZIT250T12 PO; +DEXT10CA18 PO; +HYDR-3817 PO; +LISI40TA PO; +PROP40TA5 PO; +SIMV10TA26 PO
== END 2020-02-17 10:38 | disposition home or self-care (01) ==
LOC: PREOP 05:32
PROVIDERS: ATTEND Surgery
DX: K21.9 Gastro-esophageal reflux disease without esophagitis (principal); Z20.828 Contact with and (suspected) exposure to other viral communicable diseases
CPT/HCPCS: 87635

== ENCOUNTER 2020-02-21 13:02 | Day surgery (SDC) | payer BC ==
[~2020-02-21] VITALS: Ht 175 cm; Wt 133.0 kg
[2020-02-21] MEDS ORDERED: LACTATED RINGERS 1,000 ML IV STA (13:09)
[2020-02-21] MEDS ORDERED: LACTATED RINGERS 1,000 ML IV ONE ×3 (13:15→15:45)
[2020-02-21] MEDS ORDERED: HURRICAINE EXT TUBE (BENZOCAINE) XX PRN (13:15)
[2020-02-21 13:25] VITALS: BP 148/97
--- NOTE | 2020-02-21 14:56 | Progress Note-Pre Operative ---
Pre-Operative Progress Note H&P Reviewed The H&P was reviewed, patient examined and no changes noted. Date Seen by Provider: Feb 21, 2020 Time Seen by Provider: 14:55 Date H&P Reviewed: Feb 21, 2020 Time H&P Reviewed: 14:56 Pre-Operative Diagnosis: gerd, morbid obesity VALERIY GARCIA DO Feb 21, 2020 14:56
[2020-02-21] MEDS ORDERED: PROPOFOL INJECTION 50 ML IV ONE (15:28)
[2020-02-21] MEDS ORDERED: MIDAZOLAM 2 MG/2 ML (VERSED) VIAL ONE (15:29)
--- NOTE | 2020-02-21 15:58 | Anesthesia-General Post-Op ---
MAC Patient Condition Mental Status/LOC: Same as Preop Cardiovascular: Satisfactory Nausea/Vomiting: Absent Respiratory: Satisfactory Pain: Controlled Complications: Absent Post Op Complications Complications None Follow Up Care/Instructions Patient Instructions None needed. Anesthesiology Discharge Order Discharge Order Patient is doing well, no complaints, stable vital signs, no apparent adverse anesthesia problems. No complications reported per nursing. MANUEL MURRIETA HAND BUNCH MAKER Feb 21, 2020 15:58
--- NOTE | 2020-02-21 16:01 | Progress Note-Post Operative ---
Post-Operative Progess Note Surgeon (s)/Qa Analyst (s) Surgeon VALERIY GARCIA DO Qa Analyst: na Pre-Operative Diagnosis gerd, morbid obesity Post-Operative Diagnosis normal egd Procedure & Operative Findings Date of Procedure 02/21/20 Procedure Performed/Findings egd c biopsies Anesthesia Type per shuttle van driver Estimated Blood Loss Estimated blood loss (mL): scant Specimens/Packing Specimens Removed antrum, ge VALERIY GARCIA DO Feb 21, 2020 16:01
[2020-02-21] MEDS ORDERED: OMEP-401 PO (16:03)
--- NOTE | 2020-02-21 16:03 | Discharge Inst-Simple/Standard ---
Discharge Inst-Standard Discharge Medications New, Converted or Re-Newed RX: Transmitted to Pharmacy Patient Instructions/Follow Up Plan of Care/Instructions/FU: 2 weeks Nasir Activity as Tolerated: Yes Discharge Diet: Regular Diet VALERIY GARCIA DO Feb 21, 2020 16:03
[2020-02-21 16:06] VITALS: BP 174/84
[2020-02-21 16:10] VITALS: BP 174/84
[2020-02-21 16:28] VITALS: BP 174/84
[2020-02-21 16:40] VITALS: BP 166/86
[2020-02-21 16:58] VITALS: BP 166/86
--- NOTE | 2020-02-22 00:39 | OPERATIVE REPORT ---
DATE OF SERVICE: 02/21/2020 PREOPERATIVE DIAGNOSES: Gastroesophageal reflux disease, morbid obesity. POSTOPERATIVE DIAGNOSIS: Normal EGD. A questionable reflux esophagitis. PROCEDURE: EGD with biopsies. SURGEON: Valeriy Best DO ANESTHESIA: Per DIRECTOR OF FIRST IMPRESSIONS. ESTIMATED BLOOD LOSS: Scant. COMPLICATIONS: None. SPECIMENS: Biopsy of the antrum and GE junction. INDICATIONS: The patient is a 39-year-old female going to undergo gastric bypass. She also has GERD symptoms. She understands risks and benefits of procedure and wished to proceed with procedure. Consent was signed in the chart. DESCRIPTION OF PROCEDURE: The patient was taken to the endoscopy suite, placed in left lateral recumbent position. Timeout was performed. Scope was inserted in mouth, down the esophagus, stomach and into the duodenum without difficulty. There were no polyps, masses or ulcerations within the duodenum. Scope was slowly retracted back into the stomach where it was further insufflated. No polyps, masses or ulcerations within the stomach. Biopsy of the antrum was obtained. Scope was retroflexed noting no other pathology. Scope was returned to its normal position, slowly withdrawn to distal esophagus, questionable reflux esophagitis changes. Biopsy of the GE junction was obtained. Scope was then slowly retracted back until completely removed noting no other pathology. The patient tolerated procedure well without any complications, she was taken to recovery room in stable condition. RECOMMENDATIONS: The patient was started on omeprazole 20 mg daily to see if any improvement and follow up on biopsies in 2 weeks. Any issues before that be seen at that time. Job ID: [id number] DocumentID: [id number] Dictated Date: 02/21/2020 16:05:50 Stockroom Inventory Clerk Date: 02/22/2020 00:38:49 Dictated By: VALERIY BEST DO
== END 2020-02-21 16:58 | disposition home or self-care (01) ==
LOC: ENDO 13:02
PROVIDERS: ATTEND Surgery
DX: K21.9 Gastro-esophageal reflux disease without esophagitis (principal); K29.50 Unspecified chronic gastritis without bleeding; K31.9 Disease of stomach and duodenum, unspecified; E66.01 Morbid (severe) obesity due to excess calories; Z68.41 Body mass index [BMI] 40.0-44.9, adult; E78.5 Hyperlipidemia, unspecified; I10 Essential (primary) hypertension; G47.33 Obstructive sleep apnea (adult) (pediatric); G43.909 Migraine, unspecified, not intractable, without status migrainosus; F32.9 Major depressive disorder, single episode, unspecified; F41.9 Anxiety disorder, unspecified; M41.9 Scoliosis, unspecified; M54.9 Dorsalgia, unspecified; E11.9 Type 2 diabetes mellitus without complications; E28.2 Polycystic ovarian syndrome; Z79.899 Other long term (current) drug therapy; Z91.040 Latex allergy status; Z88.8 Allergy status to other drugs, medicaments and biological substances; Z87.891 Personal history of nicotine dependence
CPT/HCPCS: 82962; 84703

== ENCOUNTER 2020-08-23 09:14 | Emergency (ER) | payer BC ==
[~2020-08-23] VITALS: Ht 175.2 cm; Wt 109.0 kg
[2020-08-23 09:14] VITALS: BP 178/118
[~2020-08-23 09:14] MED LIST changes: -LISI40TA PO; +LISI40TA9 PO; +OMEP-401 PO
[2020-08-23] MEDS ORDERED: PANTOPRAZOLE 40 MG (PROTONIX) VIAL IV ONE (09:30)
[2020-08-23] MEDS ORDERED: fentaNYL INJECTION 100 MCG/2 ML AMP IVP ONE ×2 (09:30→13:30)
[2020-08-23] MEDS ORDERED: NS IV 1000 ML 1,000 ML IV SCH (09:30)
[2020-08-23 09:35] LABS: BASOPHILS % (AUTO) 0 % (0-10); EOSINOPHILS # (AUTO) 0.1 10^3/uL (0.0-0.3); EOSINOPHILS % (AUTO) 1 % (0-10); HEMATOCRIT 41 % (35-52); HEMOGLOBIN 13.7 g/dL (11.5-16.0); LYMPHOCYTES # (AUTO) 2.3 10^3/uL (1.0-4.0); LYMPHOCYTES % (AUTO) 19 % (12-44); MEAN CORPUSCULAR HEMOGLOBIN 31 pg (25-34); MEAN CORPUSCULAR HGB CONC 33 g/dL (32-36); MEAN CORPUSCULAR VOLUME 94 fL (80-99); MONOCYTES # (AUTO) 0.6 10^3/uL (0.0-1.0); MONOCYTES % (AUTO) 5 % (0-12); NEUTROPHILS # (AUTO) 8.8 10^3/uL (1.8-7.8); NEUTROPHILS % (AUTO) 74 % (42-75); PLATELET COUNT 366 10^3/uL (130-400); WHITE BLOOD COUNT 11.9 10^3/uL (4.3-11.0)
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
[2020-08-23 09:45] LABS: CHLORIDE 106 MMOL/L (98-107); POTASSIUM 4.2 MMOL/L (3.6-5.0); SODIUM 140 MMOL/L (135-145)
[2020-08-23] MEDS ORDERED: NS 100 ML (IVPB) BAG IV ONE (09:45)
[2020-08-23] MEDS ORDERED: HOLD METFORMIN - RECEIVED CONTRAST 20 ML VIAL IV SCH (09:45)
[2020-08-23] MEDS ORDERED: IOHEXOL 350 MG/ML 100 ML (OMNIPAQUE 350) VIAL IV ONE (09:45)
[2020-08-23 09:46] LABS: CALCIUM 9.1 MG/DL (8.5-10.1)
[2020-08-23 09:47] LABS: GLUCOSE 210 MG/DL (70-105); TOTAL PROTEIN 7.1 GM/DL (6.4-8.2)
[2020-08-23 09:48] LABS: CARBON DIOXIDE 22 MMOL/L (21-32)
[2020-08-23 09:49] LABS: BILIRUBIN,TOTAL 0.4 MG/DL (0.1-1.0)
[2020-08-23 09:51] LABS: ALKALINE PHOSPHATASE 87 U/L (40-136); CREATININE SERUM 0.72 MG/DL (0.60-1.30); GFR ESTIMATED > 60
[2020-08-23 09:52] LABS: BUN/CREATININE RATIO 13
[2020-08-23 09:54] LABS: ALANINE AMINOTRANSFERASE 33 U/L (0-55); LIPASE 9 U/L (8-78)
--- NOTE | 2020-08-23 10:28 | Diagnostic Imaging Report ---
INDICATION: Left upper quadrant pain, history of gastric bypass. TECHNIQUE: Multiple contiguous axial images were obtained through the abdomen and pelvis after administration of intravenous contrast. Auto Exposure Controls were utilized during the CT exam to meet ALARA standards for radiation dose reduction. All CT scans use one or more of the following dose optimizing techniques: automated exposure control, MA and/or KvP adjustment based on patient size and exam type or iterative reconstruction. CT abdomen and pelvis is compared to 12/22/2018. FINDINGS: The visualized portions of the lung bases are clear. There were no pleural fluid collections. There was no free intraperitoneal air. The liver shows mild diffuse low-density change compatible with fatty infiltration. There is no focal liver lesion. Gallbladder shows mild wall thickening where there is a small calcification along the anterior inferior bladder wall which is new compared to the previous study. The spleen, adrenals, and pancreas appear normal. Kidneys bilaterally are unremarkable. There is no retroperitoneal mass or adenopathy. There is no ascites or abnormal fluid collection. There are postoperative changes status post gastric bypass. There is no sign of bowel obstruction or focal bowel wall thickening. There is a cystic lesion in the right adnexa measuring about 2.2 cm. There is no pelvic soft tissue mass or free fluid. There is no evidence of abdominal wall hernia. IMPRESSION: Postoperative changes status post gastric bypass. No sign of bowel obstruction or focal bowel wall thickening. There is mild fatty infiltration of the liver. The gallbladder shows mild wall thickening with the new calcification along the anterior gallbladder wall compared to the prior study of 12/22/2018. The gallbladder can be followed sonographically as clinically warranted. There is a cyst in the right adnexa measuring 2.2 cm. There is no other significant finding. Dictated by: Dictated on workstation # [id number]
--- NOTE | 2020-08-23 11:53 | Diagnostic Imaging Report ---
PROCEDURE: US Gallbladder. TECHNIQUE: Multiple real-time grayscale images were obtained over the right upper quadrant in various projections. INDICATION: Right upper quadrant pain FINDINGS: No focal hepatic echotexture abnormality however it is mildly hyperechoic throughout suggestive of mild fatty infiltration. There are shadowing stones within the dependent gallbladder lumen. The gallbladder wall measures 4 mm. Gallbladder not pathologically dilated. The common bile duct at 5 mm, normal in caliber. No evidence for intrahepatic dilatation. The unobstructed right kidney appeared unremarkable. The pancreas largely obscured by gas. IMPRESSION: Cholelithiasis with no bile duct dilatation. Probable mild hepatic steatosis. No ascites, fluid collection or right-sided hydronephrosis. Dictated by: Dictated on workstation # [id number]
[2020-08-23 12:37] LABS: BILIRUBIN,URINE NEGATIVE (NEGATIVE); CLARITY,URINE CLEAR; COLOR,URINE YELLOW; GLUCOSE, URINE (UA) NEGATIVE (NEGATIVE); KETONES,URINE NEGATIVE (NEGATIVE); LEUKOCYTE ESTERASE ,URINE NEGATIVE (NEGATIVE); NITRITE,URINE NEGATIVE (NEGATIVE); PROTEIN,URINE TRACE (NEGATIVE)
[2020-08-23 12:48] LABS: BACTERIA,URINE FEW /HPF; SQUAMOUS EPITHELIAL CELL,UR 25-50 /HPF; WBC,URINE 0-2 /HPF
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
== END 2020-08-23 15:25 | disposition home or self-care (01) ==
LOC: EDUNIT# 09:14 → ER 09:16
DX: S20.20XA Contusion of thorax, unspecified, initial encounter (principal); K80.20 Calculus of gallbladder without cholecystitis without obstruction; I10 Essential (primary) hypertension; K21.9 Gastro-esophageal reflux disease without esophagitis; F41.9 Anxiety disorder, unspecified; G89.29 Other chronic pain; M54.9 Dorsalgia, unspecified; E11.9 Type 2 diabetes mellitus without complications; Z91.040 Latex allergy status; Z88.8 Allergy status to other drugs, medicaments and biological substances; Z87.891 Personal history of nicotine dependence; Z82.49 Family history of ischemic heart disease and other diseases of the circulatory system; Z83.3 Family history of diabetes mellitus; Z79.891 Long term (current) use of opiate analgesic; X58.XXXA Exposure to other specified factors, initial encounter
CPT/HCPCS: 36415; 74177; 76705; 80053; 81000; 83690; 84703; 85025; 86141; 86308

== ENCOUNTER → 2021-02-01 | Outpatient (CLI) | payer BC ==
--- NOTE | 2021-02-01 15:35 | Diagnostic Imaging Report ---
INDICATION: Epigastric pain. PROCEDURE: Ultrasound abdomen complete. TECHNIQUE: Multiple real-time grayscale images were obtained of the abdomen in various projections. COMPARISON: Right upper quadrant ultrasound of 08/23/2020 FINDINGS: The liver measures 18.5 cm in length. It has normal echogenicity and is without focal mass. The portal vein is patent with normal direction of flow. Shadowing echogenic gallstones are present. No gallbladder wall thickening or pericholecystic fluid. The common bile duct measures up to 0.7 cm in diameter. No intrahepatic biliary dilation. Pancreas is obscured by overlying bowel gas. The kidneys are normal in size. No hydronephrosis, shadowing calculi, or suspicious mass lesion. The spleen is normal in size measuring 12 cm. There is no focal splenic mass. The aorta and IVC are normal in caliber where seen. IMPRESSION: 1. Cholelithiasis without features of acute cholecystitis. 2. No biliary duct dilatation. Dictated by: Dictated on workstation # [id number]
== END ==
LOC: RAD 08:15
PROVIDERS: ATTEND Physician Assistant
DX: K80.20 Calculus of gallbladder without cholecystitis without obstruction (principal)
CPT/HCPCS: 76700

== ENCOUNTER 2021-02-27 12:24 | Emergency (ER) | payer BC ==
[~2021-02-27] VITALS: Ht 172 cm; Wt 87.0 kg
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
--- NOTE | 2021-02-27 13:33 | Diagnostic Imaging Report ---
INDICATION: Right rib pain. COMPARISON: Right shoulder radiographs performed concurrently. TECHNIQUE: Two views of the right ribs. FINDINGS: No acute or healing rib fracture is appreciated. No right-sided pneumothorax. The right lung is clear. IMPRESSION: No acute or healing fracture within the right ribs. Dictated by: Dictated on workstation # [id number]
--- NOTE | 2021-02-27 13:33 | Diagnostic Imaging Report ---
INDICATION: Right shoulder pain. COMPARISON: None available. TECHNIQUE: Three views of the right shoulder. FINDINGS: There is a globular ossific focus along the anterior aspect of the greater tuberosity. There is some mild irregularity of the anterior tuberosity underlying this ossific abnormality. There is no other area that would suggest fracture. Mild osteoarthritis of the AC joint. IMPRESSION: 1. Globular ossific focus along the anterior aspect of the greater tuberosity could be due to subacute avulsion fracture versus a large volume of calcific deposition from calcific tendinitis. Consider CT or MRI of the right shoulder without contrast for further assessment, as deemed clinically indicated. Dictated by: Dictated on workstation # [id number]
--- NOTE | 2021-02-27 13:40 | Diagnostic Imaging Report ---
INDICATION: Right clavicle pain after injury. COMPARISON: Right shoulder radiograph performed concurrently. TECHNIQUE: 2 views of right clavicle. FINDINGS: There is no acute fracture within the right clavicle. AC joint and sternoclavicular joints are normal in alignment. No displaced fracture visualized right ribs. IMPRESSION: No acute or healing fracture within the right clavicle. Dictated by: Dictated on workstation # [id number]
[2021-02-27 14:06] VITALS: BP 178/103
== END 2021-02-27 14:06 | disposition home or self-care (01) ==
LOC: EDUNIT# 12:24 → ER 12:26
DX: S49.91XA Unspecified injury of right shoulder and upper arm, initial encounter (principal); G47.30 Sleep apnea, unspecified; I10 Essential (primary) hypertension; K21.9 Gastro-esophageal reflux disease without esophagitis; E11.9 Type 2 diabetes mellitus without complications; G89.29 Other chronic pain; M54.9 Dorsalgia, unspecified; F41.9 Anxiety disorder, unspecified; F17.210 Nicotine dependence, cigarettes, uncomplicated; Z79.891 Long term (current) use of opiate analgesic; Z79.899 Other long term (current) drug therapy; Y04.2XXA Assault by strike against or bumped into by another person, initial encounter; Y07.01 Husband, perpetrator of maltreatment and neglect
CPT/HCPCS: 71100; 73000; 73030

== ENCOUNTER → 2021-03-06 | Outpatient (CLI) | payer BC ==
--- NOTE | 2021-03-07 09:01 | Diagnostic Imaging Report ---
EXAMINATION: Magnetic resonance imaging of the right shoulder without contrast. DATE: March 06, 2021. COMPARISON: Right shoulder and clavicle radiographs February 27, 2021. HISTORY: 40-year-old female, injury. Right shoulder pain. TECHNIQUE: Magnetic Resonance Imaging sequences were performed of the shoulder without contrast. FINDINGS: ROTATOR CUFF, LIGAMENTS, TENDONS, AND MUSCLES: There is supraspinatus, infraspinatus, and subscapularis tendinopathy. The teres minor tendon is intact. There is an interstitial split tear of the subscapularis tendon. There is normal rotator cuff muscle bulk and signal. LONG HEAD OF BICEPS: The proximal long head of biceps tendon is subluxed into the interstitial split tear of the subscapularis tendon and is otherwise intact. GLENOHUMERAL JOINT: The humeral head is well positioned relative to the glenoid. There is a multiloculated paralabral cyst adjacent to the inferior anterior-inferior labrum measuring 8 x 4 x 4 mm in size compatible with an adjacent labral tear . The labral tear is difficult to otherwise identify. The articular cartilage is grossly intact. There is no joint effusion. ACROMIOCLAVICULAR JOINT: The acromioclavicular joint is normally aligned. The coracoclavicular and coracoacromial ligaments are intact. There are mild acromio clavicular degenerative changes with bulbous lateral clavicle projecting 1 to 2 mm below the expected joint margin. BONE: There is no os acromiale. There is no Hill-Sachs deformity. There is degenerative related marrow edema adjacent to the acromioclavicular joint. The bicipital groove is not particularly well-defined in contour. There are subcortical cystic changes in the greater and lesser tuberosities which are likely reactive to adjacent tendon pathology. There is no acute fracture, bone contusion, or evidence of osteonecrosis. BURSAE AND SOFT TISSUES: The bursae and soft tissue surrounding the shoulder are unremarkable. IMPRESSION: 1. Supraspinatus, infraspinatus, and subscapularis tendinopathy with an interstitial split tear of the subscapularis tendon. 2. Proximal long head of biceps tendon is subluxed in the interstitial tear of the subscapularis tendon is otherwise intact. 3. Mild acromioclavicular degenerative changes of bulbous lateral clavicle projecting 1 to 2 mm below the joint margin. 4. Multiloculated paralabral cyst adjacent to the inferior and anterior-inferior labrum compatible with an adjacent labral tear with the paralabral cyst measuring 8 x 4 x 4 mm in size. Additional glenohumeral joint assessment is unremarkable. 5. No acute fracture, bone contusion, or evidence of osteonecrosis. Dictated by: Dictated on workstation # [id number]
== END ==
LOC: RAD 16:15
PROVIDERS: ATTEND Student in an Organized Health Care Education/Training Program
DX: M19.011 Primary osteoarthritis, right shoulder (principal); M85.611 Other cyst of bone, right shoulder
CPT/HCPCS: 73221

== ENCOUNTER → 2022-01-21 | Outpatient (CLI) | payer MEDICAID ==
--- NOTE | 2022-01-21 09:30 | Diagnostic Imaging Report ---
PROCEDURE: US Gallbladder. TECHNIQUE: Multiple real-time grayscale images were obtained over the right upper quadrant in various projections. INDICATION: Right upper quadrant pain. Liver is normal in size at 16.7 cm. The portal vein is patent and shows normal direction of flow. No discrete liver mass is identified. Gallbladder does contain multiple stones. There is also gallbladder sludge present. The gallbladder wall does appear to be slightly thickened at 4 mm. No pericholecystic fluid or biliary ductal dilatation is seen. Pancreas unremarkable. Aorta is nonaneurysmal. IVC is patent. Right kidney is without calculi or hydronephrosis. There is no ascites. IMPRESSION: Cholelithiasis and gallbladder sludge. Gallbladder wall is slightly thickened as well and acute cholecystitis cannot be entirely excluded. The study is otherwise unremarkable. Dictated by: Dictated on workstation # [id number]
== END ==
LOC: RAD 09:00
PROVIDERS: ATTEND Surgery
DX: K80.20 Calculus of gallbladder without cholecystitis without obstruction (principal)
CPT/HCPCS: 76705

== ENCOUNTER → 2022-01-31 | Outpatient (CLI) | payer MEDICAID ==
[~2022-01-31] MED LIST changes: +CATHETER FLUSH 10 ML SYR IVP PRN
--- NOTE | 2022-01-31 14:24 | Diagnostic Imaging Report ---
INDICATION: Right upper quadrant pain. EXAMINATION: Hepatobiliary scan, 01/31/2022. FINDINGS: After uneventful administration of 5.5 mCi of technetium-99m Choletec intravenously, subsequent imaging is performed. There is prompt homogeneous uptake throughout the liver. Gallbladder and small bowel are seen within less than 60 minutes. At 60 minutes, Ensure was administered orally with continued imaging performed. Ejection fraction was calculated at 6%. IMPRESSION: 1. No obstructive process. 2. Low ejection fraction of 6%. This is suggestive of gallbladder dyskinesia versus chronic cholecystitis. Correlate with symptoms. Dictated by: Dictated on workstation # [id number]
== END ==
LOC: CARD 12:00
PROVIDERS: ATTEND Surgery
DX: R10.11 Right upper quadrant pain (principal)
CPT/HCPCS: 78227

== ENCOUNTER 2022-02-10 05:43 | Outpatient (CLI) | payer MEDICAID ==
[~2022-02-10] VITALS: Ht 172.7 cm; Wt 79.4 kg
[~2022-02-10 05:43] MED LIST changes: -CATHETER FLUSH 10 ML SYR IVP PRN
[2022-02-10] MEDS ORDERED: PANT40TA52 PO (09:16)
== END 2022-02-10 09:36 | disposition home or self-care (01) ==
LOC: PREOP 05:43
PROVIDERS: ATTEND Surgery
DX: Z01.818 Encounter for other preprocedural examination (principal)

== ENCOUNTER 2022-02-19 08:05 | Day surgery (SDC) | payer MEDICAID ==
[~2022-02-19] VITALS: Ht 172.7 cm; Wt 79.4 kg
[2022-02-19] VITALS (11 sets, daily range): BP systolic 117–170; BP diastolic 54–73
[~2022-02-19 08:05] MED LIST changes: +PANT40TA52 PO
--- NOTE | 2022-02-19 08:13 | Progress Note-Pre Operative ---
Pre-Operative Progress Note Date of Available H&P: Feb 05, 2022 Date H&P Reviewed: Feb 19, 2022 Time H&P Reviewed: 08:12 History & Physical: H&P Reviewed, Patient Examed, No changes noted Pre-Operative Diagnosis: cholelithiasis, ruq abd pain VALERIY GARCIA DO Feb 19, 2022 08:13
[2022-02-19] MEDS: LACTATED RINGERS 1,000 ML IV PRN ×2 (08:38→11:35)
[2022-02-19] MEDS ORDERED: ceFAZolin 2 GM IV Premixed 50 ML ONE (08:50)
[2022-02-19] MEDS ORDERED: LIDOCAINE/EPI 2% 1:200,00 (XYLOCAINE) 20 ML VIAL ONE (09:15)
[2022-02-19] MEDS ORDERED: SEVOFLURANE (ULTANE) 15 ML INHAL SOLN ONE (09:24)
[2022-02-19] MEDS ORDERED: proPOfol 200 MG/20 ML (DIPRIVAN) VIAL IV ONE (09:24)
[2022-02-19] MEDS ORDERED: LIDOCAINE PF 2% 5 ML (XYLOCAINE) VIAL ONE (09:24)
[2022-02-19] MEDS ORDERED: fentaNYL INJ 100 MCG/2 ML AMP ONE (09:24)
[2022-02-19] MEDS ORDERED: MIDAZOLAM 2 MG/2 ML (VERSED) VIAL ONE (09:24)
[2022-02-19] MEDS ORDERED: ONDANSETRON 4 MG/2 ML (SDV) Z0FRAN ONE (09:24)
[2022-02-19] MEDS ORDERED: ceFAZolin 2 GM IV Premixed 50 ML IV ONE (10:15)
[2022-02-19] MEDS ORDERED: GLYCOPYRROLATE 0.2 MG/ML (ROBINUL) 2 ML VIAL ONE ×2 (11:30→12:03)
[2022-02-19] MEDS ORDERED: PHENYLEPHRINE 100 MCG/ML 10 ML (ANESTHESIA) SYR ONE (11:40)
[2022-02-19] MEDS ORDERED: NEOSTIGMINE (BLOXIVERZ ) 1 MG/1ML 10 ML VIAL ONE (12:03)
[2022-02-19] MEDS ORDERED: HYDROmorphone 2 MG/ML VIAL (DILAUDID) ONE ×2 (12:06→12:32)
[2022-02-19] MEDS ORDERED: ACHD5005 PO (12:14)
[2022-02-19] MEDS ORDERED: DOCU-143 PO (12:14)
--- NOTE | 2022-02-19 12:15 | Discharge Inst-Simple/Standard ---
Discharge Inst-Standard Discharge Medications New, Converted or Re-Newed RX: Transmitted to Pharmacy Patient Instructions/Follow Up Plan of Care/Instructions/FU: 2 weeks tiffanie Activity as Tolerated: No Discharge Diet: Regular Diet Other Inst to Patient Follow up Appt: Make appointment for 2 weeks. Instructions: No lifting greater than 10 pounds. No strenuous activity. May shower in 24 hours, no tub bath or soaking. Use incentive spirometer at home as directed. No Smoking Skin/Wound Care: You have special glue over incision, it will fall off on it's own. Symptoms to Report: Appetite Changes, Extremity Discoloration, Numbness/Tingling, Swelling Increased, Bleeding Excessive, Eyesight Changes, Pain Increased, Urine Color Change, Constipation(Persistent), Fever over 101 degree F, Pain/Pressure in chest, Urinating Difficulty, Cough Up/Vomit Blood, Heart Beat Irreg/Pounding, Pain/Pressure in jaw, Vaginal Bleeding Increase, Cramps in feet or legs, Lightheadedness, Pain/Pressure in shoulder, Diarrhea(Persistent), Memory Changes Suddenly, Questions/Concerns, Weight gain consecutive days, Dizziness/Fainting, Nausea/Vomiting, Shortness of Breath, Weight gain over 2 pounds. If eyes or skin turn yellow notify physician. If questions or concerns contact your physician Or seek help at emergency department. VALERIY GARCIA DO Feb 19, 2022 12:15
--- NOTE | 2022-02-19 12:23 | Progress Note-Post Operative ---
Post-Operative Progess Note Surgeon (s)/Hostess Cashier (s) Surgeon VALERIY GARCIA DO Hostess Cashier: DR. Chacon to assist in retraction dissection and closure. Pre-Operative Diagnosis cholelithiasis, ruq abd pain Post-Operative Diagnosis same Procedure & Operative Findings Date of Procedure 02/19/22 Procedure Performed/Findings PROCEDURE: Laparoscopic cholecystectomy with intraoperative cholangiogram. COMPLICATIONS: None. PROCEDURE: The patient was taken to the operating suite and was prepped and draped in sterile fashion. A surgical pause was performed. Just superior to the umbilicus, a 12 mm incision was made. Dissection was taken down to the fascia, which was then scored and grasped with a Bhargav and the abdomen was then entered. A 0 Vicryl suture was placed in a [id number] fashion and a Carolina trocar was placed and secured. Pneumoperitoneum was achieved. A 5mm trochar place in the subxyphoid and 2 in the right upper quadrant. The gallbladder was then grasped and elevated. Adhesions taken off of the gallbladder with blunt and cautery dissection. The cystic duct, and cystic artery were then dissected out. Clip was placed on the distal portion of the cystic duct which was then partially transected. An arrow catheter was inserted into the duct. The cholangiogram was then performed. No filing defects and contrast made its way into the duodenum. Catheter removed. Clips were placed on proximal portion of the cystic duct and then the duct was then transected. Clips were placed along the proximal and distal portion of the cystic artery which was then transected. Hook cautery was used to dissect the gallbladder from the gallbladder fossa achieving hemostasis. The gallbladder was placed in an Endobag and removed through the 12 mm trocar site. The abdomen was then reinspected. Copious amounts of irrigation were used to irrigate the abdomen and there were no signs of active bleeding. Hemostasis had been achieved. The 12 mm fascial defect was then closed with 0 Vicryl suture that had been placed in a [id number]-[id number] fashion. The abdomen was then desufflated, the trocars were removed. The abdomen was then washed and dried. The skin was then closed using 4-0 Monocryl in a subcuticular fashion. The abdomen was washed and dried and Skin Affix was place over incisions. Patient tolerated the procedure well without any complications and was taken to the recovery room in stable condition. Anesthesia Type general Estimated Blood Loss Estimated blood loss (mL): minimal Specimens/Packing Specimens Removed gallbladder VALERIY GARCIA DO Feb 19, 2022 12:23
[2022-02-19] MEDS ORDERED: HYDROmorphone 2 MG/ML VIAL (DILAUDID) IV ONE (12:30)
[2022-02-19] MEDS ORDERED: ONDANSETRON 4 MG/2 ML (SDV) Z0FRAN IVP PRN (12:30)
--- NOTE | 2022-02-19 13:25 | Diagnostic Imaging Report ---
INDICATION: Fluoroscopy during intraoperative cholangiogram. FINDINGS: Fluoroscopy was provided in the OR during an intraoperative cholangiogram. 9 seconds of fluoroscopic time was utilized. 41 images were obtained demonstrating contrast injected via the cystic duct remnant. The intrahepatic and extrahepatic bile ducts are opacified. No filling defects are seen. There is flow of contrast into the duodenum. IMPRESSION: Fluoroscopy during intraoperative cholangiogram. Dictated by: Dictated on workstation # [id number]
[2022-02-19] MEDS ORDERED: HYDROcodone/APAP 5 MG/325 MG (LORTAB) TAB ONE (14:15)
[2022-02-19] MEDS ORDERED: HYDROcodone/APAP 5 MG/325 MG (LORTAB) TAB PO ONE (14:15)
--- NOTE | 2022-02-19 14:22 | Anesthesia-General Post-Op ---
General Patient Condition Mental Status/LOC: Same as Preop Cardiovascular: Satisfactory Nausea/Vomiting: Absent Respiratory: Satisfactory Pain: Controlled Complications: Absent Post Op Complications Complications None Follow Up Care/Instructions Patient Instructions None needed. Anesthesia/Patient Condition Patient Condition Patient is doing well, no complaints, stable vital signs, no apparent adverse anesthesia problems. No complications reported per nursing. D/C home per [facility] Criteria: Yes PRINCESS ARAUJO CRNA Feb 19, 2022 14:22
[2022-02-20] MEDS ORDERED: OXYC1TAB11 PO (10:53)
== END 2022-02-19 14:45 | disposition home or self-care (01) ==
LOC: SDC 08:05
PROVIDERS: ATTEND Surgery
DX: K80.10 Calculus of gallbladder with chronic cholecystitis without obstruction (principal); K82.8 Other specified diseases of gallbladder; F17.210 Nicotine dependence, cigarettes, uncomplicated; Z79.4 Long term (current) use of insulin; Z91.040 Latex allergy status
CPT/HCPCS: 76000; 84703; 87081; 88304

== ENCOUNTER 2022-02-20 08:42 | Emergency (ER) | payer MEDICAID ==
[~2022-02-20] VITALS: Ht 172 cm; Wt 78.4 kg
[~2022-02-20 08:42] MED LIST changes: +ACHD5005 PO; +DOCU-143 PO
--- NOTE | 2022-02-20 08:54 | ED Abdominal Pain ---
General Chief Complaint: Post OP Complications/Pain Stated Complaint: ABD PAIN Source of Information: Patient Exam Limitations: No Limitations History of Present Illness Date Seen by Provider: Feb 20, 2022 Time Seen by Provider: 08:40 Initial Comments Patient is a 41-year-old female who presents to the emergency department today with a chief complaint of diffuse abdominal discomfort, pain underneath her ribs and shortness of breath. She had a laparoscopic cholecystectomy yesterday by Dr. Garcia. She was sent home with some hydrocodone. Her last hydrocodone tablet was around 4 AM. Patient states that she feels much worse lying flat. She is nauseous. She has not had a bowel movement yet. No urinary complaints. No reported fevers or chills. No productive cough. She has had gastric bypass surgery. All other review of systems reviewed and negative except as stated. Timing/Duration: 12 Hours Severity/Quality: Moderate (Currently rates her pain at a "6") Location: Epigastric, Suprapubic Activities at Onset: None Modifying Factors: Improves With Other (Lying supine worsens her symptoms) Associated Symptoms: No Back Pain, No Chest Pain, No Fever/Chills; Nausea/Vomiting, Shortness of Air Allergies and Home Medications Allergies Coded Allergies: latex (Unverified Allergy, Severe, HIVES, 02/16/20) bupropion (Unverified Allergy, Unknown, 02/16/20) venlafaxine (Unverified Allergy, Unknown, 02/16/20) Patient Home Medication List Home Medication List Reviewed: Yes Docusate Sodium (Colace) 100 Mg Capsule, 100 MG PO BID Prescribed by: VALERIY GARCIA on 02/19/22 1214 Hydrocodone/Acetaminophen (Hydrocodone-Acetamin 5-325 mg) 5 Mg-325 Mg Tablet, 1 EACH PO Q4H PRN for PAIN-MODERATE (5-7) Prescribed by: VALERIY GARCIA on 02/19/22 1215 Oxycodone HCl/Acetaminophen (Oxycodone-Acetaminophen 5-325) 5 Mg-325 Mg Tablet, 1 EACH PO Q6H PRN for PAIN-MODERATE Prescribed by: GONZALO STEEN on 02/20/22 1053 Pantoprazole Sodium (Pantoprazole Sodium) 40 Mg Tablet.dr 40 MG PO DAILY, (Reported) Entered as Reported by: FERNANDO KIM on 02/10/22 0916 Review of Systems Review of Systems Constitutional: see HPI EENTM: No Symptoms Reported Respiratory: Shortness of Air Cardiovascular: No Symptoms Reported Gastrointestinal: Abdominal Pain; Denies Constipated, Denies Diarrhea; Nausea Genitourinary: No Symptoms Reported Musculoskeletal: no symptoms reported Skin: no symptoms reported Psychiatric/Neurological: No Symptoms Reported All Other Systems Reviewed Negative Unless Noted: Yes Past Peddkzp-Pkqbjy-Uulzfz Hx Immunizations Up To Date Tetanus Booster (TDap): Unknown PED Vaccines UTD: Yes First/Initial COVID19 Vaccinat: 09/02 Second COVID19 Vaccination Manuel: 09/30 Seasonal Allergies Seasonal Allergies: No Past Medical History Surgeries: Yes (L KNEE MENISCUS REPAIR X2,gastric bypass) Abdominal, Section, Orthopedic Respiratory: Yes (sleep apnea prior to gastric sx) Sleep Apnea Currently Using CPAP: No Currently Using BIPAP: No Cardiac: Yes High Cholesterol, Hypertension Neurological: Yes Headaches /Migraines, Neuropathy Reproductive Disorders: Yes (PCOS, INFERTILITY) Female Reproductive Disorders: Menstrual Problems, Ovarian Cyst, Polycystic Ovarian Dis Sexually Transmitted Disease: No HIV/AIDS: No Genitourinary: No UTI-Chronic Gastrointestinal: Yes (GASTRIC BYPASS ) Gastroesophageal Reflux Musculoskeletal: Yes Scoliosis, Chronic Back Pain, Spasms Endocrine: Yes (diabetic prior to gastric bypass) Diabetes, Non-Insulin dep HEENT: No (GLASSES) Loss of Vision: Denies Hearing Impairment: Denies Cancer: No Psychosocial: Yes Anxiety, Depression Integumentary: No Blood Disorders: No Adverse Reaction/Blood Tranf: No Family Medical History Deep venous thrombosis Diabetes mellitus 19 MOTHER FH: brain aneurysm FH: depression 19 MOTHER FH: headache FH: sleep apnea Hypertension 19 FATHER No Pertinent Family Hx Physical Exam Vital Signs Vital Signs - First Documented 02/20/22 08:42 Temp 36.8 Pulse 94 Resp 24 B/P (MAP) 176/97 (123) Pulse Ox 98 O2 Delivery Room Air Capillary Refill : Height/Weight/BMI Height: 5'9" Weight: 270lbs. 0.0oz. 122.054653xa; 26.62 BMI Method:Stated General Appearance: WD/WN, mild distress HEENT: PERRL/EOMI Respiratory: lungs clear, normal breath sounds, no respiratory distress, no accessory muscle use Cardiovascular: regular rate, rhythm Gastrointestinal: normal bowel sounds, soft, tenderness (Mild tenderness under the ribs bilateral upper quadrants, slight tenderness to palpation suprapubic area) Extremities: normal range of motion, non-tender, normal inspection, no pedal edema Neurologic/Psychiatric: alert, normal mood/affect, oriented x 3 Skin: normal color, warm/dry, other (Surgical port sites appear clean and dry. No erythema.) Progress/Results/Core Measures Results/Orders Lab Results Laboratory Tests Test 02/20/22 08:45 02/20/22 09:52 Range/Units White Blood Count 25.9 H 4.3-11.0 10^3/uL Red Blood Count 4.63 3.80-5.11 10^6/uL Hemoglobin 14.6 11.5-16.0 g/dL Hematocrit 43 35-52 % Mean Corpuscular Volume 92 80-99 fL Mean Corpuscular Hemoglobin 32 25-34 pg Mean Corpuscular Hemoglobin Concent 34 32-36 g/dL Red Cell Distribution Width 12.7 10.0-14.5 % Platelet Count 364 130-400 10^3/uL Mean Platelet Volume 9.8 9.0-12.2 fL Immature Granulocyte % (Auto) 1 % Neutrophils (%) (Auto) 92 H 42-75 % Lymphocytes (%) (Auto) 5 L 12-44 % Monocytes (%) (Auto) 3 0-12 % Eosinophils (%) (Auto) 0 0-10 % Basophils (%) (Auto) 0 0-10 % Neutrophils # (Auto) 23.7 H 1.8-7.8 10^3/uL Lymphocytes # (Auto) 1.3 1.0-4.0 10^3/uL Monocytes # (Auto) 0.7 0.0-1.0 10^3/uL Eosinophils # (Auto) 0.0 0.0-0.3 10^3/uL Basophils # (Auto) 0.0 0.0-0.1 10^3/uL Immature Granulocyte # (Auto) 0.2 H 0.0-0.1 10^3/uL Neutrophils % (Manual) 93 % Lymphocytes % (Manual) 3 % Monocytes % (Manual) 2 % Band Neutrophils 2 % Blood Morphology Comment NORMAL Sodium Level 134 L 135-145 MMOL/L Potassium Level 4.5 3.6-5.0 MMOL/L Chloride Level 103 98-107 MMOL/L Carbon Dioxide Level 16 L 21-32 MMOL/L Anion Gap 15 H 5-14 MMOL/L Blood Urea Nitrogen 9 7-18 MG/DL Creatinine 0.68 0.60-1.30 MG/DL Estimat Glomerular Filtration Rate 111 BUN/Creatinine Ratio 13 Glucose Level 189 H 70-105 MG/DL Calcium Level 9.8 8.5-10.1 MG/DL Corrected Calcium 9.7 8.5-10.1 MG/DL Total Bilirubin 1.2 H 0.1-1.0 MG/DL Aspartate Amino Transf (AST/SGOT) 20 5-34 U/L Alanine Aminotransferase (ALT/SGPT) 29 0-55 U/L Alkaline Phosphatase 75 40-136 U/L Total Protein 7.1 6.4-8.2 GM/DL Albumin 4.1 3.2-4.5 GM/DL SARS-CoV-2 RNA (RT-PCR) Not Detected Not Detecte My Orders Orders - GONZALO STEEN MD Ed Iv/Invasive Line Start (02/20/22 08:50) Ns Iv 1000 Ml (Sodium Chloride 0.9%) (02/20/22 09:00) Ketorolac Injection (Toradol Injection) (02/20/22 09:00) Ondansetron Injection (Zofran Injectio (02/20/22 09:00) Cbc With Automated Diff (02/20/22 08:50) Comprehensive Metabolic Panel (02/20/22 08:50) Manual Differential (02/20/22 08:45) Chest 1 View, Ap/Pa Only (02/20/22 09:12) Covid 19 Inhouse Test (02/20/22 09:47) Isolation Central Supply Req (02/20/22 09:47) Fentanyl Inj (Sublimaze Injection) (02/20/22 11:00) Medications Given in ED Current Medications Medications Dose Ordered Sig/Glory Route Start Time Stop Time Status Last Admin Dose Admin Fentanyl Citrate 50 mcg ONCE ONCE IVP 02/20/22 11:00 02/20/22 11:01 DC 02/20/22 10:59 50 MCG Ketorolac Tromethamine 10 mg ONCE ONCE IVP 02/20/22 09:00 02/20/22 09:01 DC 02/20/22 09:02 10 MG Ondansetron HCl 4 mg ONCE ONCE IVP 02/20/22 09:00 02/20/22 09:01 DC 02/20/22 09:00 4 MG Vital Signs/I&O 02/20/22 02/20/22 08:42 10:01 Temp 36.8 Pulse 94 74 Resp 24 18 B/P (MAP) 176/97 (123) 176/97 Pulse Ox 98 97 O2 Delivery Room Air Room Air Progress Progress Note #1: Time: 10:17 Progress Note Pain is back - she is getting up to go to the bathroom. I have spoken with Dr Garcia - will be down to see. Progress Note #2: Time: 10:50 Progress Note Patient has been seen by Dr. Garcia here in the emergency department. Per his examination and assessment he believes the patient is experiencing discomfort secondary to retained trapped air from her laparoscopic cholecystectomy. Her abdomen for him remains soft and benign. We will give her some fentanyl and change her over to a little oxycodone for the next 24 hours. Encourage fluids. Strict return precautions. She verbalized understanding. Progress Note #3: Time: 11:43 Progress Note Feels a little bit better. SHe l ooks Much better. We will give her 1 more round of IV pain medicine. We discussed return precautions. She verbalized understanding. All questions are sought and answered Diagnostic Imaging Diagonstic Imaging: Xray Comments [facility], [place] NAME: VÍCTOR BELLE [facility] REC#: [id number] PT STATUS: REG ER : 1980 PHYSICIAN: GONZALO STEEN MD ADMIT DATE: 02/20/22/ER Draft Date of Exam:02/20/22 CHEST 1 VIEW, AP/PA ONLY EXAMINATION: Chest 1 view HISTORY: SOB COMPARISON: 08/20/2019 FINDINGS: Heart size and pulmonary vasculature are normal. Minimal interstitial opacities in lung bases. No pleural effusion or pneumothorax. Degenerative changes of the thoracic spine. Osseous structures are otherwise intact. IMPRESSION: 1. Mild interstitial opacities in lung bases which could represent atelectasis, pulmonary edema, or atypical infection. Dictated on workstation # [id number] Dict: 02/20/2238 Trans: 02/20/22 0941 BANNER [id number] Interpreted by: HARMAN,AYLIN C DO Electronically signed by: Departure Impression Primary Impression: Abdominal pain Disposition: 01 HOME, SELF-CARE Condition: Improved Departure-Patient Inst. Decision time for Depature: 10:51 Referrals: [facility] [place] (PCP/Family) Primary Care Physician VALERIY GARCIA DO Patient Instructions: Cholecystectomy, Laparoscopic Surgery Add. Discharge Instructions: Drink lots of fluids so that your urine stays light, clear yellow. Oxycodone 1 every 6 hours as needed for pain. Stay active up and walking to help encourage her bowels to start moving and to pass gas. This will greatly also improve your pain. Keep your follow-up appointment with Dr. Garcia. If you develop any fever, worsening pain, redness at the surgical sites or persistent vomiting please come back to the emergency room for reevaluation. Scripts Oxycodone HCl/Acetaminophen (Oxycodone-Acetaminophen 5-325) 5 Mg-325 Mg Tablet 1 EACH PO Q6H PRN for PAIN-MODERATE MDD 6, #8 TAB 0 Refills Prov: GONZALO STEEN MD 02/20/22 Copy Copies To 1: VALERIY GARCIA KATHRYN M MD Feb 20, 2022 08:54
[2022-02-20 08:58] LABS: BASOPHILS % (AUTO) 0 % (0-10); EOSINOPHILS % (AUTO) 0 % (0-10); HEMATOCRIT 43 % (35-52); HEMOGLOBIN 14.6 g/dL (11.5-16.0); LYMPHOCYTES # (AUTO) 1.3 10^3/uL (1.0-4.0); LYMPHOCYTES % (AUTO) 5 % (12-44); MEAN CORPUSCULAR HEMOGLOBIN 32 pg (25-34); MEAN CORPUSCULAR HGB CONC 34 g/dL (32-36); MEAN CORPUSCULAR VOLUME 92 fL (80-99); MEAN PLATELET VOLUME 9.8 fL (9.0-12.2); MONOCYTES # (AUTO) 0.7 10^3/uL (0.0-1.0); MONOCYTES % (AUTO) 3 % (0-12); NEUTROPHILS # (AUTO) 23.7 10^3/uL (1.8-7.8); NEUTROPHILS % (AUTO) 92 % (42-75); PLATELET COUNT 364 10^3/uL (130-400); WHITE BLOOD COUNT 25.9 10^3/uL (4.3-11.0)
[2022-02-20] MEDS ORDERED: ONDANSETRON 4 MG/2 ML (SDV) Z0FRAN IVP ONE (09:00)
[2022-02-20] MEDS ORDERED: NS IV 1000 ML 1,000 ML IV SCH (09:00)
[2022-02-20] MEDS ORDERED: KETOROLAC 30 MG/ML VIAL IVP ONE (09:00)
[2022-02-20 09:15] LABS: BAND NEUTROPHILS 2 %; LYMPHOCYTES % (MANUAL) 3 %; MONOCYTES % (MANUAL) 2 %; NEUTROPHILS % (MANUAL) 93 %; RBC MORPH NORMAL
[2022-02-20 09:22] LABS: ALBUMIN 4.1 GM/DL (3.2-4.5); BILIRUBIN,TOTAL 1.2 MG/DL (0.1-1.0); CALCIUM 9.8 MG/DL (8.5-10.1); CREATININE SERUM 0.68 MG/DL (0.60-1.30); POTASSIUM 4.5 MMOL/L (3.6-5.0); TOTAL PROTEIN 7.1 GM/DL (6.4-8.2)
--- NOTE | 2022-02-20 09:41 | Diagnostic Imaging Report ---
EXAMINATION: Chest 1 view HISTORY: SOB COMPARISON: 08/20/2019 FINDINGS: Heart size and pulmonary vasculature are normal. Minimal interstitial opacities in lung bases. No pleural effusion or pneumothorax. Degenerative changes of the thoracic spine. Osseous structures are otherwise intact. IMPRESSION: 1. Mild interstitial opacities in lung bases which could represent atelectasis, pulmonary edema, or atypical infection. Dictated by: Dictated on workstation # [id number]
[2022-02-20] MEDS ORDERED: OXYC1TAB11 PO (10:53)
[2022-02-20] MEDS ORDERED: fentaNYL INJ 100 MCG/2 ML AMP IVP ONE (11:00)
--- NOTE | 2022-02-20 11:20 | Consultation - Surgery ---
SUNITHA VALENTINE 02/20/22 1120: History of Present Illness History of Present Illness Patient Consulted On(natalie/time) 02/20/22 11:19 Date Seen by Provider: Feb 20, 2022 Time Seen by Provider: 11:19 Reason for Visit: SOB and shoulder pain History of Present Illness Consulted by Dr. Steen for this patient 41yo female with h/o s/p laparoscopic cholestecomy yesterday with Dr. Garcia presents with c/o worsening SOB and right shoulder pain that started yesterday after leaving post-op. Pt states that her pain was a 10/10 when arriving to the ED but is now at a 5/10 after receiving toradol in the ED. Pt states that her pa in is exacerbated by laying down and coughing and is reduced with sitting. Pt has associated nausea that was relieved with ondansetron in the ED. Pt states that she took hydrocodone at 5am this morning and 200mg of ibuprofen at 3-4am with no relief. Pt denies vomiting. Pt had chest XRAY on 02/20 that showed mild interstitial opacities in lung bases which could represent atelectasis, pulmonary edema, or atypical infection. Allergies and Home Medications Allergies Coded Allergies: latex (Unverified Allergy, Severe, HIVES, 02/16/20) bupropion (Unverified Allergy, Unknown, 02/16/20) venlafaxine (Unverified Allergy, Unknown, 02/16/20) Patient Home Medication List Docusate Sodium (Colace) 100 Mg Capsule, 100 MG PO BID Prescribed by: VALERIY GARCIA on 02/19/22 1214 Hydrocodone/Acetaminophen (Hydrocodone-Acetamin 5-325 mg) 5 Mg-325 Mg Tablet, 1 EACH PO Q4H PRN for PAIN-MODERATE (5-7) Prescribed by: VALERIY GARCIA on 02/19/22 1215 Oxycodone HCl/Acetaminophen (Oxycodone-Acetaminophen 5-325) 5 Mg-325 Mg Tablet, 1 EACH PO Q6H PRN for PAIN-MODERATE Prescribed by: GONZALO STEEN on 02/20/22 1053 Pantoprazole Sodium (Pantoprazole Sodium) 40 Mg Tablet.dr 40 MG PO DAILY, (Reported) Entered as Reported by: FERNANDO KIM on 02/10/22 0916 Past Oxsvtaz-Uydjpe-Zhocfg Hx Patient Social History Smoking Status: Current Everyday Smoker Former Smoker, Quit: Feb 16, 2012 Type Used: Cigarettes 2nd Hand Smoke Exposure: Yes Recent Hopitalizations: No Alcohol Use?: No Immunizations Up To Date Tetanus Booster (TDap): Unknown PED Vaccines UTD: Yes Date of Influenza Vaccine: May 11, 2019 Seasonal Allergies Seasonal Allergies: No Surgeries History of Surgeries: Yes (L KNEE MENISCUS REPAIR X2,gastric bypass) Surgeries: Abdominal, Section, Orthopedic Respiratory History of Respiratory Disorde: Yes (sleep apnea prior to gastric sx) Respiratory Disorders: Sleep Apnea Cardiovascular History of Cardiac Disorders: Yes Cardiac Disorders: High Cholesterol, Hypertension Neurological History of Neurological Disord: Yes Neurological Disorders: Headaches /Migraines, Neuropathy Reproductive System Hx Reproductive Disorders: Yes (PCOS, INFERTILITY) Sexually Transmitted Disease: No HIV/AIDS: No Female Reproductive Disorders: Menstrual Problems, Ovarian Cyst, Polycystic Ovarian Dis Genitourinary History of Genitourinary Disor: No Genitourinary Disorders: UTI-Chronic Gastrointestinal History of Gastrointestinal Di: Yes (GASTRIC BYPASS ) Gastrointestinal Disorders: Gastroesophageal Reflux Musculoskeletal History of Musculoskeletal Dis: Yes Musculoskeletal Disorders: Scoliosis, Chronic Back Pain, Spasms Endocrine History of Endocrine Disorders: Yes (diabetic prior to gastric bypass) Endocrine Disorders: Diabetes, Non-Insulin dep HEENT History of HEENT Disorders: No (GLASSES) Loss of Vision: Denies Hearing Impairment: Denies Cancer History of Cancer: No Psychosocial History of Psychiatric Problem: Yes Behavioral Health Disorders: Anxiety, Depression Integumentary History of Skin or Integumenta: No Blood Transfusions History of Blood Disorders: No Adverse Reaction to a Blood Tr: No Family Medical History Significant Family History: No Pertinent Family Hx Family Medial History: Deep venous thrombosis Diabetes mellitus 19 MOTHER FH: brain aneurysm FH: depression 19 MOTHER FH: headache FH: sleep apnea Hypertension 19 FATHER Review of Systems-General Constitutional: No chills, No diaphoresis EENTM: No hearing loss, No epistaxis Respiratory: No hemoptysis; short of breath; No wheezing Cardiovascular: No palpitations, No syncope Gastrointestinal: No abdominal pain; nausea; No vomiting Genitourinary: No frequency, No hematuria Musculoskeletal: back pain (Right upper back and shoulder pain ) Skin: No change in color, No change in hair/nails Psychiatric/Neurological: Denies Anxiety, Denies Depressed Physical Exam-General Problems Physical Exam Vital Signs Vital Signs - First Documented 8/11/22 08:42 Temp 36.8 Pulse 94 Resp 24 B/P (MAP) 176/97 (123) Pulse Ox 98 O2 Delivery Room Air Capillary Refill : General Appearance: WD/WN, no apparent distress HEENT: PERRL/EOMI, normal ENT inspection Neck: full range of motion, supple Respiratory: no respiratory distress, no accessory muscle use Cardiovascular: no edema, no JVD Gastrointestinal: non tender, soft, other (laparoscopic incisions located on abdomen ) Rectal: deferred Back: normal inspection, no CVA tenderness Extremities: normal range of motion, normal inspection Neurologic/Psychiatric: alert, normal mood/affect Skin: normal color, warm/dry Lymphatic: no adenopathy Data Review Labs Laboratory Tests 02/20/22 08:45: White Blood Count 25.9H, Red Blood Count 4.63, Hemoglobin 14.6, Hematocrit 43, Mean Corpuscular Volume 92, Mean Corpuscular Hemoglobin 32, Mean Corpuscular Hemoglobin Concent 34, Red Cell Distribution Width 12.7, Platelet Count 364, Mean Platelet Volume 9.8, Immature Granulocyte % (Auto) 1, Neutrophils (%) (Auto) 92H, Lymphocytes (%) (Auto) 5L, Monocytes (%) (Auto) 3, Eosinophils (%) (Auto) 0, Basophils (%) (Auto) 0, Neutrophils # (Auto) 23.7H, Lymphocytes # (Auto) 1.3, Monocytes # (Auto) 0.7, Eosinophils # (Auto) 0.0, Basophils # (Auto) 0.0, Immature Granulocyte # (Auto) 0.2H, Neutrophils % (Manual) 93, Lymphocytes % (Manual) 3, Monocytes % (Manual) 2, Band Neutrophils 2, Blood Morphology Comment NORMAL, Sodium Level 134L, Potassium Level 4.5, Chloride Level 103, Carbon Dioxide Level 16L, Anion Gap 15H, Blood Urea Nitrogen 9, Creatinine 0.68, Estimat Glomerular Filtration Rate 111, BUN/Creatinine Ratio 13, Glucose Level 189H, Calcium Level 9.8, Corrected Calcium 9.7, Total Bilirubin 1.2H, Aspartate Amino Transf (AST/SGOT) 20, Alanine Aminotransferase (ALT/SGPT) 29, Alkaline Phosphatase 75, Total Protein 7.1, Albumin 4.1 02/20/22 09:52: SARS-CoV-2 RNA (RT-PCR) Not Detected Assessment/Plan Assessment/Plan Assessment/Plan S/p laparoscopic cholesectomy- 02/19 Shortness of breath Right shoulder pain Recommended ambulation to patient to help with pain Continue with at home pain management as needed Recommend discharge VALERIY GARCIA DO 02/20/222131: History of Present Illness History of Present Illness History of Present Illness Consult requested Dr. Steen for postoperative evaluation. Patient is a 41-year-old male who underwent laparoscopic ostectomy with intraoperative cholangiogram yesterday. Patient was having some shortness of breath and significant right shoulder pain. She states that she was having 10 out of 10 pain that is in her shoulder making it extremely difficult to breathe. She currently states is at a 5 out of 10 she states that she took some Toradol which made improved. She started to relax a bit more. She states that laying down makes it a little bit worse and also coughing worsens. She states that sit ting up has made it better. She was having some nausea but this is improved after receiving some Zofran. She states that she took some pain medication early this morning between 4 and 5 AM. She states she has been able to drink liquids more than usual. She states her abdominal pain is all over the abdomen primarily though at the incisions but significantly less than her right shoulder pain. No other complaints at this time denies fever sweats chills shortness of breath or chest pain. Allergies and Home Medications Allergies Coded Allergies: latex (Unverified Allergy, Severe, HIVES, 02/16/20) bupropion (Unverified Allergy, Unknown, 02/16/20) venlafaxine (Unverified Allergy, Unknown, 02/16/20) Patient Home Medication List Home Medication List Reviewed: Yes Docusate Sodium (Colace) 100 Mg Capsule, 100 MG PO BID Prescribed by: VALERIY GARCIA on 02/19/22 1214 Hydrocodone/Acetaminophen (Hydrocodone-Acetamin 5-325 mg) 5 Mg-325 Mg Tablet, 1 EACH PO Q4H PRN for PAIN-MODERATE (5-7) Prescribed by: VALERIY GARCIA on 02/19/22 1215 Oxycodone HCl/Acetaminophen (Oxycodone-Acetaminophen 5-325) 5 Mg-325 Mg Tablet, 1 EACH PO Q6H PRN for PAIN-MODERATE Prescribed by: GONZALO STEEN on 02/20/22 1053 Pantoprazole Sodium (Pantoprazole Sodium) 40 Mg Tablet., 40 MG PO DAILY, (Reported) Entered as Reported by: FERNANDO KIM on 02/10/22 0916 Past Kbelgtf-Ylspca-Wjnvca Hx Surgeries Surgeries: Gallbladder Reviewed Nursing Assessment Reviewed/Agree w Nursing PMH: Yes Family Medical History Significant Family History: No Pertinent Family Hx Family Medial History: Deep venous thrombosis Diabetes mellitus 19 MOTHER FH: brain aneurysm FH: depression 19 MOTHER FH: headache FH: sleep apnea Hypertension 19 FATHER Review of Systems-General Constitutional: No chills, No diaphoresis EENTM: No hearing loss, No epistaxis Respiratory: cough; No hemoptysis; short of breath; No wheezing Cardiovascular: No palpitations, No syncope Gastrointestinal: abdominal pain (RUQ), nausea; No vomiting Genitourinary: No frequency, No hematuria Musculoskeletal: back pain (Right upper back and shoulder pain ) Skin: No change in color, No change in hair/nails Psychiatric/Neurological: Denies Anxiety, Denies Depressed All Other Systems Reviewed Negative Unless Noted: Yes (Negative excepted noted.) Physical Exam-General Problems Physical Exam General Appearance: WD/WN, no apparent distress HEENT: PERRL/EOMI, normal ENT inspection Neck: full range of motion, supple Respiratory: chest non-tender, no respiratory distress, no accessory muscle use Cardiovascular: regular rate, rhythm, no JVD Gastrointestinal: soft, tenderness (Minimal tenderness at incision sites which are clean dry intact no signs of infection, pain consistent with what would be) Rectal: deferred Back: normal inspection, no CVA tenderness Extremities: normal range of motion, normal inspection Neurologic/Psychiatric: alert, normal mood/affect, oriented x 3 Skin: normal color, warm/dry Lymphatic: no adenopathy Assessment/Plan Assessment/Plan Assessment/Plan S/p laparoscopic cholecystectomy with intraoperative cholangiogram- 02/19 Shortness of breath Right shoulder pain Recommended ambulation to patient to help with pain Continue with at home pain management as needed Abdomen consistent with normal postoperative pain Patient wanting to go home her shoulder pain is likely related to gastric absorption and this is causing significant pain which is causing her shortness of breath. Patient to have close follow-up outpatient to be changes prior to that or worsening be seen at that time patient in agreement with plan. Supervisory-Addendum Brief Verification & Attestation Participated in pt care: history, MDM, physical Personally performed: exam, history, MDM, supervision of care Care discussed with: Medical Student Procedures: n/a Results interpretation: Verified all documentation Verification and Attestation of Medical Student E/M Service A medical student performed and documented this service in my presence. I reviewed and verified all information documented by the medical student and made modifications to such information, when appropriate. I personally performed the physical exam and medical decision making. Valeriy Garcia, Feb 20, 2022,21:33 SUNITHA VALENTINE Feb 20, 2022 11:20 VALERIY GARCIA DO Feb 20, 2022 21:32
[2022-02-20] MEDS ORDERED: morphine INJ 10 MG/ML 1ML (SYR OR VIAL) IVP STA (11:44)
[2022-02-20 12:16] VITALS: BP 177/93
== END 2022-02-20 12:16 | disposition home or self-care (01) ==
LOC: EDUNIT# 08:42 → ER 08:43
DX: R10.11 Right upper quadrant pain (principal); R10.12 Left upper quadrant pain; R10.30 Lower abdominal pain, unspecified; Z90.49 Acquired absence of other specified parts of digestive tract; Z91.040 Latex allergy status; Z20.822 Contact with and (suspected) exposure to COVID-19
CPT/HCPCS: 36415; 71045; 80053; 85007; 85027; 87636

== ENCOUNTER 2022-02-23 07:46 | Emergency (ER) | payer MEDICAID ==
[~2022-02-23] VITALS: Ht 172 cm; Wt 78.4 kg
[~2022-02-23 07:46] MED LIST changes: +OXYC1TAB11 PO
[2022-02-23] MEDS ORDERED: fentaNYL INJ 100 MCG/2 ML AMP IVP ONE (08:00)
--- NOTE | 2022-02-23 08:05 | ED Abdominal Pain ---
General Chief Complaint: Post OP Complications/Pain Stated Complaint: CHEST PAIN / ABD PAIN Source of Information: Patient, EMS Exam Limitations: No Limitations History of Present Illness Date Seen by Provider: Feb 23, 2022 Time Seen by Provider: 07:52 Initial Comments Patient is a 41-year-old female who presents to the emergency department today with a chief complaint of abdominal pain, mostly localized to the left upper and lower quadrant. Also some left lower chest pain. She had a laparoscopic cholecystectomy by Dr. Garcia on February 19. She was seen in the emergency room on the for increased pain. She has not had a bowel movement since prior to surgery. She has not taken anything to try to alleviate her constipation. She states she is drinking some fluids, she last ate at about 8 PM yesterday. She is not taking her narcotic pain medications, she did take some Midol yesterday which seemed to help a little bit. She is quite anxious on arrival, hype rventilating. Clinically she looks dehydrated. No fevers or chills. She did have Zofran per EMS prior to arrival. She states she is not nauseated currently. All other review of systems reviewed and negative except as stated Timing/Duration: 4-5 Days Severity/Quality: Severe, Aching, Cramping Location: LUQ, LLQ Radiation: Chest Modifying Factors: Worsens With Breathing, Worsens With Lying down, Worsens With Movement Associated Symptoms: Shortness of Air, Swelling/Mass in Abdomen, Weakness, Other (Constipation) Allergies and Home Medications Allergies Coded Allergies: latex (Unverified Allergy, Severe, HIVES, 02/16/20) bupropion (Unverified Allergy, Unknown, 02/16/20) venlafaxine (Unverified Allergy, Unknown, 02/16/20) Patient Home Medication List Home Medication List Reviewed: Yes Docusate Sodium (Colace) 100 Mg Capsule, 100 MG PO BID Prescribed by: VALERIY GARCIA on 02/19/22 1214 Hydrocodone/Acetaminophen (Hydrocodone-Acetamin 5-325 mg) 5 Mg-325 Mg Tablet, 1 EACH PO Q4H PRN for PAIN-MODERATE (5-7) Prescribed by: VALERIY GARCIA on 02/19/22 1215 Oxycodone HCl/Acetaminophen (Oxycodone-Acetaminophen 5-325) 5 Mg-325 Mg Tablet, 1 EACH PO Q6H PRN for PAIN-MODERATE Prescribed by: GONZALO STEEN on 02/20/22 1053 Pantoprazole Sodium (Pantoprazole Sodium) 40 Mg Tablet.dr, 40 MG PO DAILY, ( Reported) Entered as Reported by: FERNANDO KIM on 02/10/22 0916 Review of Systems Review of Systems Constitutional: see HPI EENTM: No Symptoms Reported Respiratory: Shortness of Air Cardiovascular: Chest Pain (left lower) Gastrointestinal: Abdominal Pain, Constipated Genitourinary: No Symptoms Reported Musculoskeletal: no symptoms reported Skin: no symptoms reported Psychiatric/Neurological: Anxiety All Other Systems Reviewed Negative Unless Noted: Yes Past Qsnkeih-Zbdfeq-Oukfts Hx Immunizations Up To Date Tetanus Booster (TDap): Unknown PED Vaccines UTD: Yes First/Initial COVID19 Vaccinat: RECEIVED, UNK WHEN Second COVID19 Vaccination Manuel: 09/30 Seasonal Allergies Seasonal Allergies: No Past Medical History Surgeries: Yes (L KNEE MENISCUS REPAIR X2,gastric bypass) Gallbladder Respiratory: Yes (sleep apnea prior to gastric sx) Sleep Apnea Currently Using CPAP: No Currently Using BIPAP: No Cardiac: Yes High Cholesterol, Hypertension Neurological: Yes Headaches /Migraines, Neuropathy Reproductive Disorders: Yes (PCOS, INFERTILITY) Female Reproductive Disorders: Menstrual Problems, Ovarian Cyst, Polycystic Ovarian Dis Sexually Transmitted Disease: No HIV/AIDS: No Genitourinary: No UTI-Chronic Gastrointestinal: Yes (GASTRIC BYPASS ) Gastroesophageal Reflux Musculoskeletal: Yes Scoliosis, Chronic Back Pain, Spasms Endocrine: Yes (diabetic prior to gastric bypass) Diabetes, Non-Insulin dep HEENT: No (GLASSES) Loss of Vision: Denies Hearing Impairment: Denies Cancer: No Psychosocial: Yes Anxiety, Depression Integumentary: No Blood Disorders: No Adverse Reaction/Blood Tranf: No Family Medical History Deep venous thrombosis Diabetes mellitus 19 MOTHER FH: brain aneurysm FH: depression 19 MOTHER FH: headache FH: sleep apnea Hypertension 19 FATHER No Pertinent Family Hx Physical Exam Vital Signs Vital Signs - First Documented 02/23/22 07:51 Temp 37.3 Pulse 125 Resp 26 B/P (MAP) 151/93 (112) Pulse Ox 93 O2 Delivery Room Air Capillary Refill : Height/Weight/BMI Height: 5'9" Weight: 270lbs. 0.0oz. 122.288457cr; 26.00 BMI Method:Stated General Appearance: WD/WN, mild distress HEENT: PERRL/EOMI, other (dry oral mucosa) Neck: full range of motion Respiratory: lungs clear, normal breath sounds, no respiratory distress, no accessory muscle use Cardiovascular: regular rate, rhythm Peripheral Pulses: 2+ Radial Pulses (R), 2+ Radial Pulses (L) Gastrointestinal: normal bowel sounds, soft, tenderness (diffuse tenderness) Rectal: normal exam (no blood; no large amount of stool in the rectal vault) Extremities: normal range of motion, normal inspection Back: normal inspection Neurologic/Psychiatric: alert, normal mood/affect, oriented x 3 Skin: normal color, warm/dry Progress/Results/Core Measures Results/Orders Lab Results Laboratory Tests Test 02/23/22 08:36 Range/Units White Blood Count 10.6 4.3-11.0 10^3/uL Red Blood Count 3.73 L 3.80-5.11 10^6/uL Hemoglobin 11.7 11.5-16.0 g/dL Hematocrit 34 L 35-52 % Mean Corpuscular Volume 90 80-99 fL Mean Corpuscular Hemoglobin 31 25-34 pg Mean Corpuscular Hemoglobin Concent 35 32-36 g/dL Red Cell Distribution Width 13.2 10.0-14.5 % Platelet Count 277 130-400 10^3/uL Mean Platelet Volume 10.3 9.0-12.2 fL Immature Granulocyte % (Auto) 0 % Neutrophils (%) (Auto) 89 H 42-75 % Lymphocytes (%) (Auto) 8 L 12-44 % Monocytes (%) (Auto) 2 0-12 % Eosinophils (%) (Auto) 0 0-10 % Basophils (%) (Auto) 0 0-10 % Neutrophils # (Auto) 9.4 H 1.8-7.8 10^3/uL Lymphocytes # (Auto) 0.9 L 1.0-4.0 10^3/uL Monocytes # (Auto) 0.2 0.0-1.0 10^3/uL Eosinophils # (Auto) 0.0 0.0-0.3 10^3/uL Basophils # (Auto) 0.0 0.0-0.1 10^3/uL Immature Granulocyte # (Auto) 0.0 0.0-0.1 10^3/uL Sodium Level 131 L 135-145 MMOL/L Potassium Level 3.5 L 3.6-5.0 MMOL/L Chloride Level 100 98-107 MMOL/L Carbon Dioxide Level 20 L 21-32 MMOL/L Anion Gap 11 5-14 MMOL/L Blood Urea Nitrogen 16 7-18 MG/DL Creatinine 0.56 L 0.60-1.30 MG/DL Estimat Glomerular Filtration Rate 116 BUN/Creatinine Ratio 29 Glucose Level 132 H 70-105 MG/DL Calcium Level 9.0 8.5-10.1 MG/DL Corrected Calcium 9.9 8.5-10.1 MG/DL Total Bilirubin 1.7 H 0.1-1.0 MG/DL Aspartate Amino Transf (AST/SGOT) 11 5-34 U/L Alanine Aminotransferase (ALT/SGPT) 22 0-55 U/L Alkaline Phosphatase 72 40-136 U/L Total Protein 6.2 L 6.4-8.2 GM/DL Albumin 2.9 L 3.2-4.5 GM/DL Lipase < 4 L 8-78 U/L My Orders Orders - GONZALO STEEN MD Ed Iv/Invasive Line Start (02/23/22 07:58) Cbc With Automated Diff (02/23/22 07:58) Comprehensive Metabolic Panel (02/23/22 07:58) Lipase (02/23/22 07:58) Abdomen/Kub 1view (02/23/22 07:58) Ns Iv 1000 Ml (Sodium Chloride 0.9%) (02/23/22 08:00) Fentanyl Inj (Sublimaze Injection) (02/23/22 08:00) Ketorolac Injection (Toradol Injection) (02/23/22 10:00) Simethicone Tablet (Mylicon Chewable Tab (02/23/22 10:45) Medications Given in ED Current Medications Medications Dose Ordered Sig/Glory Route Start Time Stop Time Status Last Admin Dose Admin Fentanyl Citrate 50 mcg ONCE ONCE IVP 02/23/22 08:00 02/23/22 08:01 DC 02/23/22 08:21 50 MCG Ketorolac Tromethamine 15 mg ONCE ONCE IVP 02/23/22 10:00 02/23/22 10:01 DC 02/23/22 10:24 15 MG Vital Signs/I&O 02/23/22 07:51 Temp 37.3 Pulse 125 Resp 26 B/P (MAP) 151/93 (112) Pulse Ox 93 O2 Delivery Room Air Progress Progress Note : Time: 11:03 Progress Note Patient given Toradol to help alleviate her abdominal discomfort. Labs reviewed and look much improved over the last visit she was here. KUB reveals a lot of gas and stool localized to the left flank where she is hurting. I have recommended that she use suppositories as well as magnesium citrate to help get her bowels started. She needs to do a lot of walking and drink lots of fluids. She has had 2 L of fluids here with improvement in her heart rate. She also could do an enema to help get things moving at home. She has no clinical or objective findings to warrant further studies from the emergency department all questions are sought and answered. Diagnostic Imaging Diagonstic Imaging: Xray Comments [facility] [place], [place] NAME: VÍCTOR BELLE [facility] REC#: [id number] PT STATUS: REG ER : 1980 PHYSICIAN: GONZALO STEEN MD ADMIT DATE: 02/23/22/ER Signed Date of Exam:02/23/22 ABDOMEN/KUB 1VIEW Indication: Abdominal pain. COMPARISON: CT abdomen pelvis August 232020. FINDINGS: The lung bases appear clear. There are surgical clips clips from cholecystectomy. There are chain sutures related to previous gastric bypass. There are few gas-filled loops of nondilated small bowel. There is also gas and stool evident within the colon. There are no findings to suggest free air. There are no unexpected abdominal calcifications or findings of an acute osseous abnormality. IMPRESSION: 1. Previous surgical changes of gastric bypass and cholecystectomy. 2. Few gas-filled nondilated loops of small bowel are present. There is no significant bowel dilation to suggest obstruction. Dictated by: Dictated on workstation # [id number] Dict: 02/23/22913 Trans: 02/23/22950 [facility] [id number] Interpreted by: JOSE JOY MD Electronically signed by: JOSE JOY MD 02/23/2251 Departure Impression Primary Impression: Postoperative ileus Additional Impression: Abdominal pain Qualified Codes: R10.32 - Left lower quadrant pain Disposition: 01 HOME, SELF-CARE Condition: Stable Departure-Patient Inst. Decision time for Depature: 11:06 Referrals: [facility] [place] (PCP/Family) Primary Care Physician VALERIY GARCIA DO Patient Instructions: Postoperative Ileus Add. Discharge Instructions: Try and drink plenty of fluids to stay well-hydrated. You should try to focus on foods that will stimulate your bowels to move such as sweet potatoes, prunes, high-fiber foods. An enema may help get things started as well as magnesium citrate. You can drink a half a bottle of magnesium citrate wait 6 hours and do that again. Do not stray far from your bathroom. Tylenol as needed for abdominal cramping. Return to the emergency department for worsening pain, fever, persistent vomiting or any other emergent concerning symptoms. Follow-up with Dr. Garcia as scheduled. Copy Copies To 1: VALERIY GARCIA DO Copies To 2: SATURNINO FRANCO KATHRYN M MD Feb 23, 2022 08:04
[2022-02-23 08:45] LABS: BASOPHILS % (AUTO) 0 % (0-10); EOSINOPHILS % (AUTO) 0 % (0-10); HEMATOCRIT 34 % (35-52); HEMOGLOBIN 11.7 g/dL (11.5-16.0); LYMPHOCYTES # (AUTO) 0.9 10^3/uL (1.0-4.0); LYMPHOCYTES % (AUTO) 8 % (12-44); MEAN CORPUSCULAR HEMOGLOBIN 31 pg (25-34); MEAN CORPUSCULAR HGB CONC 35 g/dL (32-36); MEAN CORPUSCULAR VOLUME 90 fL (80-99); MEAN PLATELET VOLUME 10.3 fL (9.0-12.2); MONOCYTES # (AUTO) 0.2 10^3/uL (0.0-1.0); MONOCYTES % (AUTO) 2 % (0-12); NEUTROPHILS # (AUTO) 9.4 10^3/uL (1.8-7.8); NEUTROPHILS % (AUTO) 89 % (42-75); PLATELET COUNT 277 10^3/uL (130-400); WHITE BLOOD COUNT 10.6 10^3/uL (4.3-11.0)
[2022-02-23 08:58] LABS: ALBUMIN 2.9 GM/DL (3.2-4.5)
[2022-02-23 08:59] LABS: CHLORIDE 100 MMOL/L (98-107); POTASSIUM 3.5 MMOL/L (3.6-5.0); SODIUM 131 MMOL/L (135-145)
[2022-02-23 09:01] LABS: GLUCOSE 132 MG/DL (70-105); TOTAL PROTEIN 6.2 GM/DL (6.4-8.2)
[2022-02-23 09:02] LABS: CARBON DIOXIDE 20 MMOL/L (21-32)
[2022-02-23 09:03] LABS: BILIRUBIN,TOTAL 1.7 MG/DL (0.1-1.0)
[2022-02-23 09:04] LABS: ALKALINE PHOSPHATASE 72 U/L (40-136)
[2022-02-23 09:05] LABS: CREATININE SERUM 0.56 MG/DL (0.60-1.30); GFR ESTIMATED 116
[2022-02-23 09:06] LABS: BUN/CREATININE RATIO 29
[2022-02-23 09:07] LABS: ALANINE AMINOTRANSFERASE 22 U/L (0-55)
[2022-02-23 09:08] LABS: LIPASE < 4 U/L (8-78)
[2022-02-23] MEDS: NS IV 1000 ML 1,000 ML IV SCH ×2 (09:18→10:32)
--- NOTE | 2022-02-23 09:51 | Diagnostic Imaging Report ---
Indication: Abdominal pain. COMPARISON: CT abdomen pelvis August 232020. FINDINGS: The lung bases appear clear. There are surgical clips clips from cholecystectomy. There are chain sutures related to previous gastric bypass. There are few gas-filled loops of nondilated small bowel. There is also gas and stool evident within the colon. There are no findings to suggest free air. There are no unexpected abdominal calcifications or findings of an acute osseous abnormality. IMPRESSION: 1. Previous surgical changes of gastric bypass and cholecystectomy. 2. Few gas-filled nondilated loops of small bowel are present. There is no significant bowel dilation to suggest obstruction. Dictated by: Dictated on workstation # [id number]
[2022-02-23] MEDS ORDERED: KETOROLAC 30 MG/ML VIAL IVP ONE (10:00)
[2022-02-23] MEDS ORDERED: SIMETHICONE 80 MG (MYLICON) CHEW PO ONE (10:45)
[2022-02-23 12:05] VITALS: BP 106/51
== END 2022-02-23 12:05 | disposition home or self-care (01) ==
LOC: EDUNIT# 07:46 → ER 07:47
DX: K91.89 Other postprocedural complications and disorders of digestive system (principal); Z90.49 Acquired absence of other specified parts of digestive tract; Z98.84 Bariatric surgery status; Z91.040 Latex allergy status
CPT/HCPCS: 36415; 74018; 80053; 83690; 85025

== ENCOUNTER → 2023-05-18 | Outpatient (CLI) | payer MEDICAID, OTHER ==
[~2023-05-18] MED LIST changes: -GLIP5TAB13 PO; +GLIP5TAB23 PO
--- NOTE | 2023-05-18 16:07 | Diagnostic Imaging Report ---
PROCEDURE: MR imaging cervical spine without contrast. TECHNIQUE: Multiplanar, multisequence MR imaging of the cervical spine was performed without contrast. INDICATION: Chronic neck pain. COMPARISON: none. FINDINGS: No acute fracture or dislocation is seen in the cervical spine. There is straightening of the cervical spine. The vertebral body heights and disc spaces are well maintained. The bone marrow signal is unremarkable. No focal osseous lesions. The craniocervical junction is maintained. The cervical spinal cord demonstrates normal intrinsic signal. No epidural collections are seen. The included brainstem and posterior fossa have normal appearance. Multilevel degenerative changes are seen in the cervical spine with posterior disc bulges and uncovertebral arthropathy. C2-C3: No significant spinal canal or foraminal stenosis. C3-C4: No significant spinal canal or foraminal stenosis. C4-C5: Uncovertebral arthropathy results in no significant spinal canal narrowing and moderate right and no left foraminal narrowing. C5-C6: Posterior disc bulge and uncovertebral arthropathy results in mild to moderate spinal canal narrowing and mild to moderate right and no left foraminal narrowing. C6-C7: Posterior disc bulge and uncovertebral arthropathy results in moderate spinal canal stenosis, severe left lateral recess stenosis, moderate right lateral recess stenosis, and mild right and moderate left foraminal stenosis. C7-T1: No significant spinal canal or foraminal stenosis. The soft tissues of neck are unremarkable. IMPRESSION: 1. No acute fracture or dislocation of the cervical spine. 2. Multilevel degenerative changes in the cervical spine, greatest at C6-C7. Dictated by: Dictated on workstation # [id number]
== END ==
LOC: RAD 12:27
PROVIDERS: ATTEND Nurse Practitioner
DX: M47.812 Spondylosis without myelopathy or radiculopathy, cervical region (principal)
CPT/HCPCS: 72141